=== PATIENT | male | born 1950 | race Caucasian/White ===

== ENCOUNTER → 2017-05-04 | Outpatient (CLI) | payer MEDICARE, BC ==
--- NOTE | 2017-05-04 09:59 | XR ---
EXAMINATION TYPE: XR chest 2V DATE OF EXAM: 05/04/2017 COMPARISON: NONE INDICATION: Z00.00. No other history is provided TECHNIQUE: Frontal and lateral views of the chest are obtained. FINDINGS: The heart size is normal. The pulmonary vasculature is normal. The lungs are clear. IMPRESSION: 1. No acute pulmonary process.
== END ==
LOC: RADXRMAIN 09:18
PROVIDERS: ATTEND Family Medicine
DX: Z00.00 Encounter for general adult medical examination without abnormal findings (principal)
CPT/HCPCS: 71020

== ENCOUNTER → 2017-09-09 | Outpatient (CLI) | payer MEDICARE, BC ==
[2017-09-09 07:18] LABS: Anisocytosis Slight; CH 32.5; CHCM 33.7; HCT 40.8 % (39.0-53.0); HDW 3.15; HGB 13.5 gm/dL (13.0-17.5); MCH 32.1 pg (25.0-35.0); MCV 97.1 fL (80.0-100.0); Macrocytosis Slight; Mean Platelet Volume 7.5; WBC 7.5 k/uL (3.8-10.6)
[2017-09-09 09:57] LABS: Erythrocyte Sedimentation Rate 28 mm/hr (0-15)
--- NOTE | 2017-09-09 12:49 | NM ---
EXAMINATION TYPE: NM bone 3 phase DATE OF EXAM: 09/09/2017 COMPARISON: Previous 3 phase bone scan 03/13/2012, plain film left hip 08/09/2017 HISTORY: Left thigh and hip pain Triple phase bone scintigraphy was performed following the injection of28.2 mCi Tc 99m MDP. Immediat e images and 4 hours post injection images acquired. FINDINGS: Some mild increased uptake is noted about the left hip and acetabular component, femoral prosthesis o n immediate imaging, more significant uptake noted on delayed imaging. Photopenic areas present withi n both hips compatible with prior hip arthroplasties. Mild uptake noted about the right hip similar t o prior exam. IMPRESSION: Findings may be indicative of prosthesis infection, loosening.
== END | disposition home or self-care (01) ==
LOC: RADNMMAIN 06:38
PROVIDERS: ATTEND Orthopaedic Surgery
DX: M25.552 Pain in left hip (principal); Z96.642 Presence of left artificial hip joint; Z88.0 Allergy status to penicillin
CPT/HCPCS: 85652; 85027; 86140; 78315; 36415; A9503

== ENCOUNTER → 2018-10-31 | Outpatient (CLI) | payer MEDICARE, BC ==
--- NOTE | 2018-10-31 12:10 | P.STRESS ---
- Stress Test Note Stress Test Results/Findings: Exam Performed: stress test Exam Date: 10/31/18 Reason for Exam: CP Height: 5 ft 10 in Weight: 124.738 kg Protocol: EXERCISE STRESS TEST Stage: 1 Duration of Exercise: 2:08 Resting Heart Rate: 88 Resting Blood Pressure: 125/85 Maximum Achieved Heart Rate: 136 Maximum Achieved Blood Pressure: 198/63 85% PMHR: 128 100% PMHR: 150 METS: 3.4 Technologist Comment: SHORTNESS OF BREATH DURING TEST. TEST STOPPED DUE TO PATIENT'S DIFFICULTY IN BREATHING Stress Test Results/Findings: This is a 68-year-old gentleman with history of hypertension, diabetes, family history and smoking being evaluated for symptoms of chest pain and shortness of breath. Stress data: Baseline EKG showed sinus rhythm with normal NV interval, QRS duration with mild ST-T abnormalities in inferolateral leads and poor R-wave progression in the anterior leads size to possible previous anteroseptal MS. Blood pressure at rest is 128/85, pulse rate of 88. Patient walked on the Epifanio protocol for 2 minutes and 8 seconds achieving a maximal heart rate 136 with a blood pressure of about 198/63. The test was stopped because of shortness of breath. EKGs taken during exercise and showed a lot of artifacts, but EKGs taken in the recovery showed more pronounced ST-T abnormalities in the inferolateral leads with with T-wave inversions and ST depressions.. Patient did not express any chest pain . Final impression #1. Limited excess capacity #2. The test was stopped because of extreme shortness of breath. #3. The test is considered inconclusive because of baseline EKG changes. Baseline EKG showed ST-T changes in inferolateral leads with pronounced changes during exercise. Ischemia cannot be completely excluded based on this test. May consider nuclear stress test with Lexiscan.
== END ==
LOC: RADNMMAIN 10:36
PROVIDERS: ATTEND Family Medicine
DX: R07.89 Other chest pain (principal)
CPT/HCPCS: 93017

== ENCOUNTER 2018-11-18 08:19 | Day surgery (SDC) | payer BC, MEDICARE ==
[2018-11-12 16:15] VITALS: BMI 39.4
[~2018-11-18 08:19] MED LIST: ALPRAZolam 0.25 MG TAB PO PRN; ALPRAZolam 0.5 MG TAB PO PRN; ASPIRIN 325 MG TAB PO STA; ATORVASTATIN 80 MG TAB PO STA; NITROGLYCERIN SL TABS 0.4 MG TAB SUBLINGUAL PRN; SODIUM CHLORIDE 0.9% 1,000 ML in EMPTY BAG 1 BAG IV ONE
[2018-11-18 09:08] LABS: Glucose,Whole Blood 177 mg/dL (75-99)
[2018-11-18] MEDS ORDERED: fentaNYL (PF) 50 MCG/ML 2 ML AMP ONE ×2 (09:42→10:40)
[2018-11-18] MEDS ORDERED: MIDAZOLAM 2 MG/2 ML VIAL IVP ONE (09:55)
[2018-11-18] MEDS: BENZOCAINE SPRAY 1 CAN MUCOUS MEM ONE ×2 (09:55→09:59)
[2018-11-18] MEDS ORDERED: fentaNYL (PF) 50 MCG/ML 2 ML AMP IVP ONE ×2 (09:59→10:42)
[2018-11-18] MEDS ORDERED: SODIUM CHLORIDE 0.9% 1,000 ML IV ONE (10:05)
[2018-11-18] MEDS ORDERED: LIDOCAINE 1% INJ 10MG/ML (20 ML MDV) ONE (10:24)
[2018-11-18] MEDS ORDERED: ENALAPRILAT 1.25 MG/ML 1 ML VIAL ONE (10:30)
[2018-11-18] MEDS ORDERED: IV FLUID CONTINUATION 1,000 ML IV ONE (10:30)
[2018-11-18] MEDS ORDERED: MIDAZOLAM 2 MG/2 ML VIAL IV ONE (10:32)
[2018-11-18] MEDS ORDERED: ENALAPRILAT 1.25 MG/ML 1 ML VIAL IV ONE (10:33)
[2018-11-18] MEDS ORDERED: LIDOCAINE 1% INJ 10MG/ML (20 ML MDV) SQ ONE (10:35)
[2018-11-18] MEDS ORDERED: IOPAMIDOL-370 125ML BTL INJ ONE (10:57)
[2018-11-18 11:12] VITALS: TEMP 97.9
[2018-11-18] MEDS ORDERED: RX INFO: IV CONTRAST WAS GIVEN 1 EACH MISC MISCELLANE PRN (11:25)
[2018-11-18] MEDS ORDERED: SODIUM CHLORIDE 0.9% 1,000 ML IV SCH (11:30)
--- NOTE | 2018-11-18 11:48 | CC ---
CARDIAC CATHETERIZATION REPORT INDICATION: Aortic stenosis, exertional shortness of breath in a patient with moderate to severe aortic stenosis by echocardiogram. PROCEDURE NOTE: After obtaining informed consent, left heart catheterization and coronary angiogram are performed via the right femoral artery using standard Ernestina catheters. The patient tolerated the procedure well without any obvious immediate complications. A femoral angiogram was performed and Angio-Seal was deployed for hemostasis. Patient tolerated . FINDINGS: 1. HEMODYNAMICS: Central aortic pressure is 130/80 mm. 2. LEFT VENTRICULOGRAM: Left ventriculogram is not performed. 3. ANGIOGRAPHIC DATA: Left main coronary artery appears calcified, but no significant stenosis is noted. There is ventricularization of the pressure wave pattern on engaging the left probably it is just the way the catheter sitting. We went back and took images with a size 3.5 Ernestina catheter and there was ventricularization that left main does not seem to have significant disease, divides into left anterior descending coronary artery and circumflex coronary artery. LAD shows mild disease at the origin of the diagonal branch. Circumflex coronary artery is a nondominant vessel that shows 30% to 40% stenosis. Right coronary artery is a large dominant vessel. In its midportion, there is a 70%- 80% stenosis and the proximal part has a 40% to 50% stenosis. CONCLUSIONS: Calcified coronaries with mild atherosclerotic plaque involving the ostium of left main with significant stenosis involving mid right coronary artery. PLAN: I am going to review the patient has significant aortic stenosis. I am going to have the cardiothoracic surgeon see the patient and see if we should do aortic valve replacement with bypass or just with right coronary artery and bring him back for an aortic valve replacement at a later time. MMODL / IJN: [id number] /
--- NOTE | 2018-11-18 11:48 | ECHOT ---
TRANSESOPHAGEAL ECHOCARDIOGRAM INDICATION: Aortic stenosis. PROCEDURE NOTE: After obtaining informed consent, transesophageal echocardiogram was performed in left lateral position using an Omniplane probe. Local and IV sedation were obtained using 2 mg of Versed and 50 mcg of fentanyl. The patient tolerated the procedure well without any obvious immediate complications. Received moderate conscious sedation. Total sedation time was 10 minutes. FINDINGS: 1. Aortic valve: Aortic valve is a 3-leaflet valve appears heavily calcified shows severe restriction in leaflet mobility. By planimetry, the valve area is 0.9 square centimeters. 2. Left atrium appears mildly enlarged. 3. Right atrium and right ventricle appear prominent. 4. Mitral valve is anatomically normal. There is trace mitral regurgitation noted. 5. Tricuspid valve shows mild tricuspid regurgitation. 6. Left ventricle has normal size, shows concentric left ventricular hypertrophy with normal LV function. 7. Interatrial septum: There is no evidence of left to right shunt by color-flow Doppler or [id number] shunt by agitated saline contrast study. 8. Aorta: Aortic root measures within normal limits. Aorta shows [id number] atherosclerotic changes. CONCLUSIONS: Severe aortic stenosis involving a 3-leaflet aortic valve that is heavily calcified and shows severe restriction in leaflet mobility. By planimetry, the valve area comes to somewhere between 0.9 and 1.1 square centimeters. MMODL / IJN: [id number] /
[2018-11-18 11:54] VITALS: RESP 16
[2018-11-18] MEDS ORDERED: MUPIROCIN 2% OINT 22 GM TUBE TOPICAL SCH (14:24)
--- NOTE | 2018-11-18 14:24 | P.GSCN ---
History of Present Illness Consult date: 11/18/18 Reason for Consult: Severe aortic valve stenosis, coronary artery disease, surgical recommendations. Requesting physician: Demian Brennan History of present illness: This is a 68-year-old gentleman who follows on an outpatient basis with Dr. Jonathan Graham. He has a previous medical history of aortic stenosis, hypertension, hyperlipidemia, family history of coronary artery disease, diabetes mellitus with neuropathy, previous tobacco dependence, rare EtOH use, shingles, basal cell skin carcinoma diagnosed in 2015 and 2016, osteoarthritis, both right and left hip replacements with postoperative infections and subsequent IV antibiotics per Dr. Ricci. This gentleman has been experiencing exertional dyspnea over the previous 4-6 months. He does admit to occasional back pain, but denies any syncopal episodes, chest pain, nausea, diaphoresis, or any other symptoms. Due to his increasing symptoms he was brought to the [facility] by Dr. Brennan for transesophageal echocardiogram and left heart catheterization. The CARMELA demonstrated a 3 leaflet aortic valve with heavy calcification and severe restriction, valve area measuring 0.9 cm by planimetry consistent with severe aortic stenosis, trace mitral regurgitation, mild tricuspid regurgitation, and concentric left ventricular hypertrophy with normal left ventricular function. Heart catheterization demonstrated a calcified left main coronary artery without significant stenosis, right coronary artery with proximal stenosis 40-50% and mid stenosis 70-80%, and 30-40 % stenosis in the circumflex coronary artery. Dr. Irby from cardiothoracic surgery was consulted for surgical recommendations. Review of Systems Review of systems was completed and was negative except as noted. - Cardiovascular Reports dyspnea on exertion - Respiratory Reports dyspnea Past Medical History Past Medical History: Coronary Artery Disease (CAD), Chest Pain / Angina, Diabetes Mellitus, Hyperlipidemia, Hypertension, Osteoarthritis (OA), Pneumonia Additional Past Medical History / Comment(s): SOB,pain mid back,MURMUR, IDDM, HX OF HERPES. DIABETIC NEUROPATHY. 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 07-25-15 .LT HIP REPLACEMENT. ADMITTED WITH INC CELLULITIS LT HIP Past Anesthesia/Blood Transfusion Reactions: No Reported Reaction Additional Past Anesthesia/Blood Transfusion Reaction / Comm: Pt has received blood transfusion without reaction. Past Psychological History: Depression Smoking Status: Former smoker Past Alcohol Use History: Rare Past Drug Use History: None Reported - Past Family History Father Family Medical History: Diabetes Mellitus, Hypertension, Memory Impairment Mother Family Medical History: CVA/TIA Brother(s) Family Medical History: Diabetes Mellitus, Hyperlipidemia, Hypertension Son(s) Family Medical History: No Reported History Medications and Allergies Home Medications Medication Instructions Recorded Confirmed Type valACYclovir HCL [Valtrex] 500 mg PO DAILY 07/18/15 11/12/18 History Aspirin EC [Ecotrin Low Dose] 81 mg PO HS 10/02/17 11/12/18 History Citalopram Hydrobromide [CeleXA] 20 mg PO DAILY 10/02/17 11/12/18 History hydrALAZINE HCL [Apresoline] 25 mg PO TID 10/02/17 11/12/18 History Cholecalciferol [Vitamin D3] 1,000 unit PO DAILY 11/12/18 11/12/18 History Doxycycline [Vibramycin] 100 mg PO BID 11/12/18 11/12/18 History Furosemide [Lasix] 40 mg PO DAILY 11/12/18 11/12/18 History Insulin Aspart [NovoLOG] 0 units SQ TID-W/MEALS PRN 11/12/18 11/12/18 History Insulin Aspart [NovoLOG] 27 units SQ TID-W/MEALS 11/12/18 11/12/18 History Insulin Glargine [Lantus] 80 unit SQ HS 11/12/18 11/12/18 History Meloxicam 15 mg PO DAILY 11/12/18 11/12/18 History Metoprolol Tartrate [Lopressor] 25 mg PO BID 11/12/18 11/12/18 History Omeprazole [PriLOSEC] 20 mg PO AC-BRKFST 11/12/18 11/12/18 History Pregabalin [Lyrica] 100 mg PO BID 11/12/18 11/12/18 History metFORMIN HCL [Glucophage] 500 mg PO BID 11/12/18 11/12/18 History traMADol HCL [Ultram] 50 mg PO TID PRN 11/12/18 11/12/18 History Allergies Allergy/AdvReac Type Severity Reaction Status Date / Time Penicillins Allergy Rash/Hives Verified 11/12/18 15:57 Surgical - Exam Vital Signs Temp Pulse Resp BP Pulse Ox 97.9 F 80 20 165/70 98 11/18/18 11:10 11/18/18 11:10 11/18/18 11:10 11/18/18 11:10 11/18/18 11:10 - General well developed, well nourished, no distress, no pain, obese - Eyes PERRL, normal ocular movement - ENT no hearing loss - Neck no masses, no bruits, trachea midline - Respiratory Lungs sounds clear bilaterally. Respirations even, nonlabored. Currently on room air oxygen saturation 94%. No chest wall deformities. - Cardiovascular S1, S2 present. Positive systolic murmur. Regular rate and rhythm, sinus rhythm on telemetry. Palpable peripheral pulses bilaterally. No edema present. No calf pain or tenderness noted. No varicosities noted. - Abdomen Abdomen: soft, non tender, bowel sounds - Genitourinary Deferred - Rectum Deferred - Integumentary no rash, no growths, no abnormal pigmentation - Neurologic normal coordination, normal sensation - Musculoskeletal normal posture - Psychiatric oriented to time, oriented to person, oriented to place, speech is normal, memory intact Results - Labs Abnormal Lab Results - Last 24 Hours (Table) 11/18/18 Range/Units 08:51 POC Glucose (mg/dL) 177 H (75-99) mg/dL - Imaging Additional studies: Heart catheterization and transesophageal echo films reviewed Assessment and Plan (1) Hypertension Current Visit: Yes Status: Chronic Code(s): I10 - ESSENTIAL (PRIMARY) HYPERTENSION SNOMED Code(s): 80556937 (2) Hyperlipidemia Current Visit: Yes Status: Chronic Code(s): E78.5 - HYPERLIPIDEMIA, UNSPECIFIED SNOMED Code(s): 19123067 (3) Coronary artery disease Current Visit: Yes Status: Chronic Code(s): I25.10 - ATHSCL HEART DISEASE OF [place] CORONARY ARTERY W/O ANG PCTRS SNOMED Code(s): 09419504 (4) Aortic stenosis Current Visit: Yes Status: Chronic Code(s): I35.0 - NONRHEUMATIC AORTIC ( VALVE) STENOSIS SNOMED Code(s): 66861282 (5) Osteoarthritis Current Visit: Yes Status: Chronic Code(s): M19.90 - UNSPECIFIED OSTEOARTHRITIS, UNSPECIFIED SITE SNOMED Code(s): 839718397 (6) Tobacco dependence in remission Current Visit: No Status: Resolved Code(s): F17.201 - NICOTINE DEPENDENCE, UNSPECIFIED, IN REMISSION SNOMED Code(s): 515465376 (7) Obesity (BMI 30-39.9) Current Visit: Yes Status: Chronic Code(s): E66.9 - OBESITY, UNSPECIFIED SNOMED Code(s): 799176096 (8) Diabetes mellitus Current Visit: Yes Status: Chronic Code(s): E11.9 - TYPE 2 DIABETES MELLITUS WITHOUT COMPLICATIONS SNOMED Code(s): 61398827 Plan: The patient was seen and examined in the extended stay unit with Dr. Irby. Chart/diagnostics were reviewed. Case was discussed between Dr. Irby and Dr. Brennan. We offered the patient bioprosthetic aortic valve replacement along with coronary artery bypass surgery. The usual perioperative course was discussed in detail with the patient and his , risks and benefits were reviewed, all questions were answered, and the patient agreed to surgery. Preoperative testing was ordered. Patient will need dental clearance prior to surgery and he does state he sees a dentist every 6 months. We will discuss antibiotic usage and infection risk with Dr. Ricci as patient and indicate he has a history of multiple infections with his prosthetic hip replacements and was told he will be on lifelong antibiotics. At this time we scheduled surgery for December 01 pending results of preoperative testing and dental clearance, this was agreeable to the patient and his . We recommend the patient be continued on aspirin, statin, beta paul therapy. Medical management per primary care service and cardiology. More recommendations to follow. Thank you Dr. Brennan for this consult. We look forward to working with you in the care of your patient. Time with Patient: Greater than 30
[2018-11-18 14:29] LABS: Basophils % (A) 0 %; Eosinophils # (A) 0.2 k/uL (0-0.7); Eosinophils % (A) 3 %; HCT 39.2 % (39.0-53.0); HGB 13.5 gm/dL (13.0-17.5); Lymphocytes % (A) 30 %; MCH 33.6 pg (25.0-35.0); MCHC 34.6 g/dL (31.0-37.0); MCV 97.1 fL (80.0-100.0); Mean Platelet Volume 7.4; Monocytes # (A) 0.4 k/uL (0-1.0); Monocytes % (A) 6 %; Neutrophils # (A) 3.9 k/uL (1.3-7.7); Neutrophils % (A) 59 %; Platelet Count 145 k/uL (150-450); RBC 4.03 m/uL (4.30-5.90); RDW 14.9 % (11.5-15.5); WBC 6.6 k/uL (3.8-10.6)
[2018-11-18 14:35] LABS: Partial Thromboplastin Time 24.3 sec (22.0-30.0); Prothrombin Time 10.3 sec (9.0-12.0)
[2018-11-18 14:50] LABS: Appearance,Urine Clear (Clear); Bilirubin,Urine Negative (Negative); Blood,Urine Negative (Negative); Color,Urine Yellow; Glucose,Urine (UA) Negative (Negative); Ketones,Urine Negative (Negative); Leukocyte Esterase,Urine Negative (Negative); Nitrite,Urine Negative (Negative); PH, Urine 5.5 (5.0-8.0); Protein,Urine Trace (Negative); Urobilinogen,Urine <2.0 mg/dL (<2.0)
[2018-11-18 14:50] LABS: Albumin 3.8 g/dL (3.5-5.0); Calcium 8.9 mg/dL (8.4-10.2); Potassium 4.8 mmol/L (3.5-5.1); Total Bilirubin 1.2 mg/dL (0.2-1.3); Total Protein 6.2 g/dL (6.3-8.2)
[2018-11-18 14:59] LABS: Specific Gravity,Urine >1.050 (1.001-1.035)
--- NOTE | 2018-11-18 16:38 | XR ---
EXAMINATION: XR chest 2V DATE AND TIME: 11/18/2018 4:28 PM CLINICAL INDICATION: [facility]; PreOp Cardiac Surgery TECHNIQUE: Departmental protocol COMPARISON: 05/04/2017 FINDINGS: EKG leads noted. The overlying soft tissues are prominent. Lungs are clear. The pleural spaces are negative. The cardiac silhouette is not enlarged. The left cardiac apex can be visualized; prominent mediastina l adipose is noted in epicardial position. The remainder of the mediastinal silhouette is unremarkabl e. The skeletal structures and soft tissues are negative for acute findings. IMPRESSION: NO ACUTE PROCESS.
[2018-11-18 16:42] VITALS: PULSE 68
[2018-11-18 16:44] VITALS: BP 159/68
[2018-11-18 19:54] LABS: Hepatitis A Antibody IgM Non-Reactive (Non-Reactive); Hepatitis B Core IgM Non-Reactive (Non-Reactive)
[2018-11-18 22:23] LABS: Hemoglobin A1C 6.3 % (4.0-6.0)
--- NOTE | 2018-11-19 09:32 | P.VSCSTY ---
Greater Saphenous Vein Mapping This is bilateral lower extremity greater saphenous vein mapping. Date of service 11/18/2018 Reason for study: Preop CABG. Vein quality and ultrasound appearance no sign of wall changes or intraluminal thrombus.. Vein size groin right 4.5 x 4.9 groin left 11.1 x 9.7 High thigh right 2.5 x 2.9 high thigh left 4.0 x 4.4 Mid thigh right to 2.6 x 4.0 mid thigh left 3.6 x 5.1 Above-knee right 2.5 x 2.9 above- knee left 3.3 x 4.4 Below knee right 3.5 x 4.5 below-knee left 2.7 x 3.2 Mid calf right 2.5 x 2.6 mid calf left 2.5 x 3.4 Ankle right to 2.5 x 3.2 ankle left 2.2 x 2.7 Impression usable bilateral greater saphenous veins..
== END 2018-11-18 17:06 | disposition home or self-care (01) ==
LOC: CATHCVL 08:19
PROVIDERS: ATTEND Internal Medicine Cardiovascular Disease
DX: I08.3 Combined rheumatic disorders of mitral, aortic and tricuspid valves (principal); I25.10 Atherosclerotic heart disease of native coronary artery without angina pectoris; I25.84 Coronary atherosclerosis due to calcified coronary lesion; I10 Essential (primary) hypertension; E78.5 Hyperlipidemia, unspecified; E11.40 Type 2 diabetes mellitus with diabetic neuropathy, unspecified; R01.1 Cardiac murmur, unspecified; Z79.4 Long term (current) use of insulin; Z82.49 Family history of ischemic heart disease and other diseases of the circulatory system; Z87.891 Personal history of nicotine dependence; Z79.1 Long term (current) use of non-steroidal anti-inflammatories (NSAID); Z79.82 Long term (current) use of aspirin; Z79.899 Other long term (current) drug therapy; Z88.0 Allergy status to penicillin; Z85.828 Personal history of other malignant neoplasm of skin; M19.90 Unspecified osteoarthritis, unspecified site
CPT/HCPCS: 94150; 93312; 93320; 93325; 93454; 86900; 86901; 80061; 80053; 80074; 84443; 83735; 85025; 85610; 85730; 86850; 81003; 87070; 87086; 83036; 71046; 93970; C1760; C1894; C1769; J2250; J2001; J3010; Q9967

== ENCOUNTER 2018-12-01 08:00 | Inpatient (IN) | payer MEDICARE ==
[2018-12-02] MEDS ORDERED: CALCIUM CHLORIDE 100 MG/ML 10 ML SYRINGE IV ONE (05:00)
[2018-12-02] MEDS ORDERED: CLEVIDIPINE BUTYRATE 25 MG in EMPTY BAG 1 BAG IV ONE (05:00)
[2018-12-02] MEDS ORDERED: ALBUMIN HUMAN 25% 50 ML IV ONE (05:00)
[2018-12-02] MEDS ORDERED: ceFAZolin 3 GM in SODIUM CHLORIDE 0.9% 30 ML IVPB ONE (05:00)
[2018-12-02] MEDS ORDERED: INSULIN REGULAR 100 UNIT in SODIUM CHLORIDE 0.9% 100 ML IV ONE (05:00)
[2018-12-02] MEDS ORDERED: PROTAMINE SULFATE 10 MG/ML 25 ML VIAL IV ONE ×2 (05:00→07:51)
[2018-12-02] MEDS ORDERED: CHLORHEXIDINE GLUCONATE 15 ML CUP MUCOUS MEM ONE (05:00)
[2018-12-02] MEDS ORDERED: PROTAMINE SULFATE 250 MG in EMPTY BAG 1 BAG IV ONE (05:00)
[2018-12-02] MEDS ORDERED: PROPOFOL 1,000 MG/100 ML VIAL IV ONE (05:00)
[2018-12-02] MEDS ORDERED: NITROGLYCERIN-D5W PMX 50 MG in DEXTROSE/WATER 1 250ML.BAG IV ONE (05:00)
[2018-12-02] MEDS ORDERED: PHENYLEPHRINE 40 MG in SODIUM CHLORIDE 0.9% 250 ML IV ONE (05:00)
[2018-12-02] MEDS ORDERED: ceFAZolin 1,000 MG in SODIUM CHLORIDE 0.9% IRRIGATIO 1,000 ML IRRIGATION ONE (05:00)
[2018-12-02] MEDS ORDERED: PAPAVERINE 360 MG in SODIUM CHLORIDE 0.9% 90 ML IV ONE (05:00)
[2018-12-02] MEDS ORDERED: ATORVASTATIN 10 MG TAB PO ONE (05:00)
[2018-12-02] MEDS ORDERED: DEXTROSE 5% IN WATER 1,000 ML with POTASSIUM CHLORIDE 25 MEQ, SODIUM CHLORIDE 2.5MEQ/ML... IRRIGATION ONE ×6 (05:00)
[2018-12-02] MEDS ORDERED: NITROGLYCERIN-D5W PMX 25 MG/250 ML BTL IV ONE (05:00)
[2018-12-02] MEDS ORDERED: SODIUM BICARB 8.4% 50 ML SYR (1 MEQ/ML) IV ONE (05:00)
[2018-12-02] MEDS ORDERED: ASPIRIN 325 MG TAB PO ONE (05:00)
[2018-12-02] MEDS ORDERED: METOPROLOL TARTRATE 12.5 MG TAB PO ONE (05:00)
[2018-12-02] MEDS ORDERED: HEPARIN SODIUM,PORCINE 5,000 UNIT in SODIUM CHLORIDE 0.9% 500 ML 500 ML IV ONE (05:00)
[2018-12-02] MEDS ORDERED: NOREPINEPHRINE 4 MG in SODIUM CHLORIDE 0.9% 250 ML IV ONE (05:00)
[2018-12-02] MEDS ORDERED: MANNITOL 25% 12.5 GM/50 ML VIAL IV ONE (05:00)
[2018-12-02] MEDS ORDERED: DEXTROSE 5% IN WATER 1,000 ML with POTASSIUM CHLORIDE 110 MEQ, MAGNESIUM SULFATE 16 MEQ... IV ONE ×5 (05:00)
[2018-12-02] MEDS ORDERED: ALBUMIN HUMAN 5% 500 ML IVPB ONE (05:00)
[2018-12-02] MEDS ORDERED: TRANEXAMIC ACID 2,000 MG in SODIUM CHLORIDE 0.9% 180 ML IV ONE ×4 (05:00)
[2018-12-02] MEDS ORDERED: HEPARIN SODIUM 1,000 UN/ML (10ML VL) IV ONE (05:00)
[2018-12-02] MEDS ORDERED: PHENYLEPHRINE-0.9% NACL SYG 1 MG/10 ML SYRINGE IV ONE ×4 (05:00)
[2018-12-02] MEDS ORDERED: MAGNESIUM SULFATE MG 500 MG/ML IV ONE (05:00)
[2018-12-02] MEDS ORDERED: ceFAZolin 2,000 MG in SODIUM CHLORIDE 0.9% 30 ML IVPB ONE (05:00)
[2018-12-02 06:06] LABS: Glucose,Whole Blood 296 mg/dL (75-99)
[2018-12-02] MEDS ORDERED: INSULIN ASPART 100 UNIT/ML 1 ML 10 ML VIAL SQ ONE (06:08)
[2018-12-02] MEDS ORDERED: TRANEXAMIC ACID 1,000 MG/10 ML VIAL ONE (07:51)
[2018-12-02] MEDS ORDERED: LACTATED RINGERS 1,000 ML BAG IV ONE (07:51)
[2018-12-02] MEDS ORDERED: MIDAZOLAM 2 MG/2 ML VIAL ONE (07:51)
[2018-12-02] MEDS ORDERED: fentaNYL (PF) 50 MCG/ML 2 ML AMP ONE (07:51)
[2018-12-02] MEDS ORDERED: PROPOFOL 10 MG/ML 20 ML VIAL IV ONE (07:51)
[2018-12-02] MEDS ORDERED: ELECTROLYTE-R (PH 7.4) 1,000 ML IV.SOLN IV ONE (07:51)
[2018-12-02] MEDS ORDERED: fentaNYL (PF) 50 MCG/ML 50 ML VIAL ONE (07:51)
[2018-12-02] MEDS ORDERED: HEPARIN SODIUM,PORCINE 10,000 UNIT/ML 1 ML VIAL ONE (07:51)
[2018-12-02] MEDS ORDERED: LIDOCAINE 1% INJ 10MG/ML (20 ML MDV) ONE (07:51)
[2018-12-02] MEDS ORDERED: SODIUM CHLORIDE 0.9% 250 ML BAG ONE (07:51)
[2018-12-02] MEDS ORDERED: MAGNESIUM SULFATE 4 MEQ/ML 10ML VIAL ONE (07:51)
[2018-12-02] MEDS ORDERED: VECURONIUM 10 MG VIAL IV ONE (07:51)
[2018-12-02 08:37] LABS: ABG Base Excess 1.7 mmol/L; ABG HCO3 28 mmol/L (21-25); ABG PCO2 48 mmHg (35-45); ABG PH 7.37 (7.35-7.45); ABG Potassium Whole Blood 4.5 mmol/L (3.4-4.5); ABG Sodium Whole Blood 145 mmol/L (135-146); ABG TCO2 29 mmol/L (19-24)
[2018-12-02 10:12] LABS: ABG Base Excess 1.2 mmol/L; ABG HCO3 27 mmol/L (21-25); ABG PCO2 48 mmHg (35-45); ABG PH 7.36 (7.35-7.45); ABG PO2 220 mmHg (83-108); ABG Potassium Whole Blood 4.7 mmol/L (3.4-4.5); ABG Sodium Whole Blood 141 mmol/L (135-146); ABG TCO2 29 mmol/L (19-24)
[2018-12-02 10:41] LABS: ABG HCO3 27 mmol/L (21-25); ABG PCO2 45 mmHg (35-45); ABG PH 7.38 (7.35-7.45); ABG PO2 310 mmHg (83-108); ABG Potassium Whole Blood 4.4 mmol/L (3.4-4.5); ABG Sodium Whole Blood 142 mmol/L (135-146); ABG TCO2 28 mmol/L (19-24)
[2018-12-02 11:06] LABS: ABG Base Excess 0.8 mmol/L; ABG HCO3 26 mmol/L (21-25); ABG PCO2 44 mmHg (35-45); ABG PH 7.38 (7.35-7.45); ABG PO2 306 mmHg (83-108); ABG Potassium Whole Blood 4.3 mmol/L (3.4-4.5); ABG Sodium Whole Blood 143 mmol/L (135-146); ABG TCO2 27 mmol/L (19-24)
[2018-12-02 11:38] LABS: ABG Base Excess 0.9 mmol/L; ABG HCO3 27 mmol/L (21-25); ABG PCO2 46 mmHg (35-45); ABG PH 7.37 (7.35-7.45); ABG PO2 300 mmHg (83-108); ABG Potassium Whole Blood 4.6 mmol/L (3.4-4.5); ABG Sodium Whole Blood 143 mmol/L (135-146); ABG TCO2 28 mmol/L (19-24)
[2018-12-02 12:22] LABS: ABG Base Excess 0.7 mmol/L; ABG HCO3 27 mmol/L (21-25); ABG PCO2 48 mmHg (35-45); ABG PH 7.35 (7.35-7.45); ABG PO2 334 mmHg (83-108); ABG Potassium Whole Blood 4.8 mmol/L (3.4-4.5); ABG Sodium Whole Blood 142 mmol/L (135-146); ABG TCO2 28 mmol/L (19-24)
[2018-12-02 12:53] LABS: ABG Base Excess -0.3 mmol/L; ABG HCO3 26 mmol/L (21-25); ABG PCO2 46 mmHg (35-45); ABG PH 7.35 (7.35-7.45); ABG PO2 372 mmHg (83-108); ABG Potassium Whole Blood 4.7 mmol/L (3.4-4.5); ABG Sodium Whole Blood 142 mmol/L (135-146); ABG TCO2 27 mmol/L (19-24)
[2018-12-02 13:01] LABS: ABG Base Excess 0.5 mmol/L; ABG HCO3 28 mmol/L (21-25); ABG Oxygen Saturation 69.6 % (94-97); ABG PCO2 58 mmHg (35-45); ABG PH 7.29 (7.35-7.45); ABG Potassium Whole Blood 4.8 mmol/L (3.4-4.5); ABG Sodium Whole Blood 142 mmol/L (135-146); ABG TCO2 29 mmol/L (19-24)
[2018-12-02 13:07] LABS: ABG HCO3 26 mmol/L (21-25); ABG PCO2 46 mmHg (35-45); ABG PH 7.36 (7.35-7.45); ABG PO2 358 mmHg (83-108); ABG Potassium Whole Blood 4.7 mmol/L (3.4-4.5); ABG Sodium Whole Blood 141 mmol/L (135-146); ABG TCO2 27 mmol/L (19-24)
[2018-12-02 14:12] LABS: ABG PO2 >420 mmHg (83-108)
[2018-12-02 14:28] LABS: ABG Base Excess 1.4 mmol/L; ABG HCO3 27 mmol/L (21-25); ABG PCO2 47 mmHg (35-45); ABG PH 7.37 (7.35-7.45); ABG PO2 183 mmHg (83-108); ABG Potassium Whole Blood 4.5 mmol/L (3.4-4.5); ABG Sodium Whole Blood 146 mmol/L (135-146); ABG TCO2 29 mmol/L (19-24)
[2018-12-02 14:45] LABS: ABG Base Excess 1.3 mmol/L; ABG HCO3 27 mmol/L (21-25); ABG PCO2 46 mmHg (35-45); ABG PH 7.38 (7.35-7.45); ABG PO2 187 mmHg (83-108); ABG Potassium Whole Blood 4.5 mmol/L (3.4-4.5); ABG Sodium Whole Blood 146 mmol/L (135-146); ABG TCO2 28 mmol/L (19-24)
[2018-12-02 14:53] LABS: ABG PO2 40 mmHg (83-108)
[2018-12-02] MEDS ORDERED: Magnesium Replacement Protocol 1 EACH MISC MISCELLANE PRN (14:53)
[2018-12-02] MEDS ORDERED: BENZOCAINE/MENTHOL LOZENG 1 EACH LOZENGE MUCOUS MEM PRN (14:53)
[2018-12-02] MEDS ORDERED: NITROGLYCERIN-D5W PMX 50 MG in DEXTROSE/WATER 1 250ML.BAG IV SCH (14:53)
[2018-12-02] MEDS ORDERED: AMIODARONE 450 MG in DEXTROSE 5% IN WATER 250 ML IV PRN ×2 (14:53)
[2018-12-02] MEDS ORDERED: CALCIUM CHLORIDE 1,000 MG in SODIUM CHLORIDE 0.9% 100 ML IV PRN (14:53)
[2018-12-02] MEDS ORDERED: Potassium Replacement Protocol 1 EACH MISC MISCELLANE PRN (14:53)
[2018-12-02] MEDS ORDERED: METOCLOPRAMIDE 5 MG/ML 2 ML VIAL IVP PRN (14:53)
[2018-12-02] MEDS ORDERED: ONDANSETRON 4 MG/2 ML VIAL IVP PRN (14:53)
[2018-12-02] MEDS ORDERED: DEXTROSE 5% IN WATER 100 ML with AMIODARONE 150 MG IV PRN (14:53)
[2018-12-02] MEDS ORDERED: Phosphorus Replacement Protoco 1 EACH MISC MISCELLANE PRN (14:53)
[2018-12-02] MEDS ORDERED: PROPOFOL 1,000 MG in EMPTY BAG 1 BAG IV SCH (14:53)
[2018-12-02] MEDS ORDERED: IPRATROPIUM-ALBUTEROL 3 ML NEB INHALATION PRN (14:53)
[2018-12-02 15:16] LABS: Glucose,Whole Blood 139 mg/dL (75-99)
[2018-12-02 15:56] LABS: Glucose,Whole Blood 131 mg/dL (75-99)
[2018-12-02] MEDS ORDERED: hydrALAZINE HCL 20 MG/ML 1 ML VIAL IVP PRN (15:57)
[2018-12-02 16:00] LABS: ABG Base Excess -0.1 mmol/L; ABG HCO3 26 mmol/L (21-25); ABG PCO2 45 mmHg (35-45); ABG PH 7.36 (7.35-7.45); ABG PO2 >420 mmHg (83-108); ABG Potassium Whole Blood 4.4 mmol/L (3.4-4.5); ABG Sodium Whole Blood 142 mmol/L (135-146); ABG TCO2 27 mmol/L (19-24)
[2018-12-02] MEDS ORDERED: ceFAZolin 3 GM in SODIUM CHLORIDE 0.9% 100 ML IVPB SCH (16:00)
--- NOTE | 2018-12-02 16:08 | XR ---
EXAMINATION TYPE: XR chest 1V portable DATE OF EXAM: 12/02/2018 HISTORY: Post Op CABG COMPARISON: 11/18/2018 TECHNIQUE: Single view of the chest is submitted. FINDINGS: Endotracheal tube, NG tube, SG catheter, mediastianal drains and chest tubes are appropriately placed . Post operative changes of CABG. No sizeable pneumothorax. Scattered Pleural-parenchymal opacities may reflect atelectasis. The heart mildly enlarged. IMPRESSION: 1. Post operative changes of CABG.
[2018-12-02 16:10] LABS: ABG Base Excess -4.4 mmol/L; ABG HCO3 24 mmol/L (21-25); ABG Oxygen Saturation 99.4 % (94-97); ABG PCO2 70 mmHg (35-45); ABG PO2 269 mmHg (83-108); ABG TCO2 27 mmol/L (19-24)
[2018-12-02 16:11] LABS: ABG PH 7.15 (7.35-7.45)
--- NOTE | 2018-12-02 16:15 | P.CNPUL ---
History of Present Illness Consult date: 12/02/18 Requesting physician: Alex Irby Reason for consult: other Chief complaint: Severe aortic valve stenosis, coronary artery disease History of present illness: This is 68-year-old white male patient of Dr. Jonathan Morataya, past medical history of aortic stenosis, hypertension, hyperlipidemia, family history of coronary artery disease, diabetes mellitus with neuropathy, previous tobacco dependence, occasional EtOH use, basal cell skin carcinoma, osteoarthritis, status post right and left hip replacement, with postoperative infections wiring IV antibiotic infusions per Dr. Ricci. Patient been experiencing exertional dyspnea over the previous 4-6 months, and any syncopal episodes, denied any chest pain. Ration underwent CARMELA and left heart catheterization by Dr. Messina, and the CARMELA showed a 3 leaflet aortic valve with heavy calcification and severe restriction, history of aortic stenosis, trace mitral regurg, mild tricuspid regurg, concentric left ventricular hypertrophy with preserved left ventricular function. The catheterization showed a calcified left main coronary artery without significant stenosis, right coronary artery with proximal stenosis of 40-50% and mid stenosis 70-80% and 30-40% stenosis in the circumflex coronary artery. Preop PFT showed FEV1 of 1.83 L or 56% of predicted , with a forced vital capacity of 2.86 L or 64% of predicted, consistent with moderately severe restriction. 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 Today on 12/02/2018 patient seen in the intensive care unit, in the postoperative period, status post 1 vessel coronary artery bypass, SVG to the RCA, and aortic valve replacement using a bioprosthetic valve. Patient is that it, intubated on mechanical ventilator, current vent settings are SIMV mode with a rate of 12, tidal volume of 580, FiO2 100% and PEEP of 10. Patient was placed on assist-control mode with the same rate and tidal volume and FiO2. Patient is DDD paced, rate of 80 BPM. Current IV drips include lactated Ringer's at a rate of 50 ML per hour, Diprivan at 25 mics per kilo per minute, insulin is a 5 units per hour, nitroglycerin is at 5 mics per kilo per minute. Midsternal incision is clean dry and intact, 2 mediastinal chest tubes connected to Pleur-evac, with 60 mL of serosanguineous output, right pleural chest tube with minimal sanguis output in the Pleur-evac. Postop chest x-ray has been reviewed with Dr. Granda, shows left basal atelectasis, ET tube, NG tube PA catheter are in good locations. Postoperative blood work is pending. Review of Systems All systems: negative Constitutional: Denies chills, Denies fever Eyes: denies blurred vision, denies pain Ears, nose, mouth and throat: Denies headache, Denies sore throat Cardiovascular: Reports decreased exercise tolerance, Reports dyspnea on exertion, Denies chest pain, Denies shortness of breath Respiratory: Reports dyspnea, Denies cough Gastrointestinal: Denies abdominal pain, Denies diarrhea, Denies nausea, Denies vomiting Musculoskeletal: Denies myalgias Integumentary: Denies pruritus, Denies rash Neurological: Denies numbness, Denies weakness Psychiatric: Denies anxiety, Denies depression Endocrine: Denies fatigue, Denies weight change Past Medical History Past Medical History: Coronary Artery Disease (CAD), Chest Pain / Angina, Diabetes Mellitus, Hyperlipidemia, Hypertension, Osteoarthritis (OA), Pneumonia Additional Past Medical History / Comment(s): SOB, pain mid back, MURMUR, HX OF HERPES, on preventitive valtrex, DIABETIC NEUROPATHY. 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 07-25-15 .LT HIP REPLACEMENT. ADMITTED WITH INC CELLULITIS LT HIP Past Anesthesia/Blood Transfusion Reactions: No Reported Reaction Additional Past Anesthesia/Blood Transfusion Reaction / Comment(s): Pt has received blood transfusion without reaction. Smoking Status: Former smoker - Past Family History Father Family Medical History: Diabetes Mellitus, Hypertension, Memory Impairment Mother Family Medical History: CVA/TIA Brother(s) Family Medical History: Diabetes Mellitus, Hyperlipidemia, Hypertension Son(s) Family Medical History: No Reported History Medications and Allergies Home Medications Medication Instructions Recorded Confirmed Type valACYclovir HCL [Valtrex] 500 mg PO DAILY 07/18/15 12/02/18 History Aspirin EC [Ecotrin Low Dose] 81 mg PO HS 10/02/17 12/02/18 History Citalopram Hydrobromide [CeleXA] 20 mg PO DAILY 10/02/17 12/02/18 History hydrALAZINE HCL [Apresoline] 25 mg PO TID 10/02/17 12/02/18 History Cholecalciferol [Vitamin D3] 1,000 unit PO DAILY 11/12/18 12/02/18 History Doxycycline [Vibramycin] 100 mg PO BID 11/12/18 12/02/18 History Furosemide [Lasix] 40 mg PO DAILY 11/12/18 12/02/18 History Insulin Aspart [NovoLOG] 0 units SQ TID-W/MEALS PRN 11/12/18 12/02/18 History Insulin Aspart [NovoLOG] 27 units SQ TID-W/MEALS 11/12/18 12/02/18 History Insulin Glargine [Lantus] 80 unit SQ HS 11/12/18 12/02/18 History Meloxicam 15 mg PO DAILY 11/12/18 12/02/18 History Metoprolol Tartrate [Lopressor] 25 mg PO BID 11/12/18 12/02/18 History Omeprazole [PriLOSEC] 20 mg PO AC-BRKFST 11/12/18 12/02/18 History Pregabalin [Lyrica] 100 mg PO BID 11/12/18 12/02/18 History metFORMIN HCL [Glucophage] 500 mg PO BID 11/12/18 12/02/18 History traMADol HCL [Ultram] 50 mg PO TID PRN 11/12/18 12/02/18 History Allergies Allergy/AdvReac Type Severity Reaction Status Date / Time Penicillins Allergy Rash/Hives Verified 12/02/18 15:12 Physical Exam Vitals: Vital Signs Temp Pulse Resp BP BP Pulse Ox 12/02/18 05:59 97.3 F L 70 16 167/70 135/88 98 Intake and Output 12/02/18 12/02/18 12/02/18 06:59 14:59 22:59 Intake Total 31 Output Total 2600 Balance -2569 Intake: IV 31 Output: Urine 600 Estimated Blood Loss 1999 Other: Weight 127.119 kg GENERAL EXAM: 68-year-old obese white male patient, sedated, intubated HEAD: Normocephalic/atraumatic. EYES: Normal reaction of pupils, equal size. Conjunctiva pink, sclera white. NOSE: Clear with pink turbinates. THROAT: No erythema or exudates. NECK: No masses, no JVD, no thyroid enlargement, no adenopathy. CHEST: No chest wall deformity. Symmetrical expansion. Midsternal incision is clean dry and intact, 2 mediastinal chest tubes, right pleural chest tube in place, with small amount of sanguinous output in the Pleur-evacs, no air leak, epicardial wires connected to external pacemaker which is pacing at the rate of 80 at the DDD mode LUNGS: Equal air entry with diminished breath sounds at the bases CVS: Regular rate and rhythm, normal S1 and S2, no gallops, no murmurs, no rubs ABDOMEN: Soft, nontender. No hepatosplenomegaly, normal bowel sounds, no guarding or rigidity. EXTREMITIES: No clubbing, no edema, no cyanosis, 2+ pulses and upper and lower extremities. Right lower extremity site is wrapped with Dov wraps, SCDs on bilateral lower extremities MUSCULOSKELETAL: Muscle strength and tone normal. SPINE: No scoliosis or deformity SKIN: No rashes CENTRAL NERVOUS SYSTEM: No focal deficits, tone is normal in all 4 extremities. Results - Laboratory Findings ABG ABG pH 7.36 (7.35-7.45) 12/02/18 13:06 ABG pCO2 46 mmHg (35-45) H 12/02/18 13:06 ABG pO2 358 mmHg (83-108) H 12/02/18 13:06 ABG O2 Saturation 100.0 % (94-97) H 12/02/18 13:06 Abnormal lab findings: Abnormal Labs 11/18/18 11/28/18 12/01/18 14:04 05:00 12:52 ABG pH ABG pCO2 ABG pO2 ABG HCO3 ABG Total CO2 ABG O2 Saturation ABG Hematocrit ABG Potassium ABG Ionized Calcium ABG Glucose ABG Lactic Acid Hemoglobin POC Glucose (mg/dL) Arterial Blood Potassium Arterial Blood Glucose Crossmatch See Detail See Detail See Detail 12/02/18 12/02/18 12/02/18 06:04 08:36 09:23 ABG pH ABG pCO2 48 H 47 H ABG pO2 >420 H 183 H ABG HCO3 28 H 27 H ABG Total CO2 29 H 29 H ABG O2 Saturation 100.0 H 100.0 H ABG Hematocrit ABG Potassium ABG Ionized Calcium ABG Glucose 211 H 165 H ABG Lactic Acid 1.8 H 2.1 H Hemoglobin 12.3 L POC Glucose (mg/dL) 296 H Arterial Blood Potassium Arterial Blood Glucose 211 H 165 H Crossmatch 12/02/18 12/02/18 12/02/18 09:23 09:25 09:25 ABG pH ABG pCO2 46 H 48 H ABG pO2 187 H 220 H 310 H ABG HCO3 27 H 27 H 27 H ABG Total CO2 28 H 29 H 28 H ABG O2 Saturation 100.0 H 100.0 H 100.0 H ABG Hematocrit 28 L 27 L ABG Potassium 4.7 H ABG Ionized Calcium 4.4 L 4.4 L ABG Glucose 164 H 220 H 179 H ABG Lactic Acid 2.1 H 2.3 H* 2.5 H* Hemoglobin 12.4 L 9.2 L 8.9 L POC Glucose (mg/dL) Arterial Blood Potassium 4.7 H Arterial Blood Glucose 164 H 220 H 179 H Crossmatch 12/02/18 12/02/18 12/02/18 11:06 11:38 12:21 ABG pH ABG pCO2 46 H 48 H ABG pO2 306 H 300 H 334 H ABG HCO3 26 H 27 H 27 H ABG Total CO2 27 H 28 H 28 H ABG O2 Saturation 100.0 H 100.0 H 100.0 H ABG Hematocrit 29 L 27 L 28 L ABG Potassium 4.6 H 4.8 H ABG Ionized Calcium 4.4 L 4.3 L 4.3 L ABG Glucose 164 H 180 H 188 H ABG Lactic Acid 2.7 H* 2.7 H* 2.7 H* Hemoglobin 9.3 L 8.9 L 9.0 L POC Glucose (mg/dL) Arterial Blood Potassium 4.6 H 4.8 H Arterial Blood Glucose 164 H 180 H 188 H Crossmatch 12/02/18 12/02/18 12/02/18 12:52 13:01 13:06 ABG pH 7.29 L ABG pCO2 46 H 58 H 46 H ABG pO2 372 H 40 L* 358 H ABG HCO3 26 H 28 H 26 H ABG Total CO2 27 H 29 H 27 H ABG O2 Saturation 100.0 H 69.6 L 100.0 H ABG Hematocrit 27 L 26 L 26 L ABG Potassium 4.7 H 4.8 H 4.7 H ABG Ionized Calcium 4.3 L 4.3 L 4.3 L ABG Glucose 210 H 196 H 201 H ABG Lactic Acid 2.7 H* 2.7 H* 2.8 H* Hemoglobin 8.8 L 8.4 L 8.6 L POC Glucose (mg/dL) Arterial Blood Potassium 4.7 H 4.8 H 4.7 H Arterial Blood Glucose 210 H 196 H 201 H Crossmatch 12/02/18 15:01 ABG pH ABG pCO2 ABG pO2 ABG HCO3 ABG Total CO2 ABG O2 Saturation ABG Hematocrit ABG Potassium ABG Ionized Calcium ABG Glucose ABG Lactic Acid Hemoglobin POC Glucose (mg/dL) 139 H Arterial Blood Potassium Arterial Blood Glucose Crossmatch - Diagnostic Findings Chest x-ray: report reviewed, image reviewed Assessment and Plan Plan: Assessment: #1. Severe symptomatic aortic valve stenosis and coronary artery disease, status post aortic valve replacement and one-vessel bypass, SVG to the RCA,post op day 0 #2. Postoperative ventilator management #3. Diabetes mellitus with diabetic neuropathy #4. Hypertension, hyperlipidemia #5. Morbid obesity #6. Osteoarthritis #7. Release episodes of pneumonia #8. Postoperative infections owing left total hip arthroplasty, and right total hip arthroplasty,requiring IV antibiotic infusions maintenance dose of oral doxycycline Plan: Postop chest x-ray has been reviewed, showed left basilar atelectasis, no other acute pulmonary process, postop blood work is pending. Blood gases pending. Not much drainage out of the mediastinal right pleural chest tube. Hemodynamically patient is stable. We'll proceed with spontaneous breathing trials and extubation once the patient is awake and following commands. Continue oral doxycycline, nebulized bronchodilators, incentive spirometer to the bedside, deep breathing and coughing after extubation. Daily chest x-rays and labs. Will continue to closely follow I performed a history & physical examination of the patient and discussed their management with my nurse practitioner, Niurka Read. I reviewed the nurse practitioner's note and agree with the documented findings and plan of care. Lung sounds are positive for diffuse wheezes throughout the lung stein. The findings and the impression was discussed with the patient. I attest to the documentation by the nurse practitioner. Time with Patient: Greater than 30
[2018-12-02] MEDS: INSULIN REGULAR 100 UNIT in SODIUM CHLORIDE 0.9% 100 ML IV SCH (16:19)
[2018-12-02] MEDS: LACTATED RINGERS 1,000 ML IV SCH (16:21)
[2018-12-02] MEDS: ACETAMINOPHEN IV (For NPO) 1,000 MG in EMPTY BAG 1 BAG IVPB SCH (16:22)
[2018-12-02] MEDS: IPRATROPIUM-ALBUTEROL 3 ML NEB INHALATION SCH ×3 (16:26→21:05)
[2018-12-02 16:28] LABS: Glucose,Whole Blood 133 mg/dL (75-99)
[2018-12-02] MEDS: CLEVIDIPINE BUTYRATE 25 MG in EMPTY BAG 1 BAG IV SCH ×2 (16:46→23:35)
[2018-12-02 16:52] LABS: Basophils # (A) 0.1 k/uL (0-0.2); Basophils % (A) 0 %; Eosinophils # (A) 0.2 k/uL (0-0.7); Eosinophils % (A) 1 %; HGB 11.6 gm/dL (13.0-17.5); Lymphocytes # (A) 3.1 k/uL (1.0-4.8); Lymphocytes % (A) 20 %; MCHC 34.2 g/dL (31.0-37.0); MCV 99.4 fL (80.0-100.0); Macrocytosis Slight; Mean Platelet Volume 6.7; Monocytes # (A) 0.9 k/uL (0-1.0); Monocytes % (A) 6 %; Neutrophils # (A) 10.9 k/uL (1.3-7.7); Neutrophils % (A) 72 %; Platelet Count 201 k/uL (150-450); RBC 3.42 m/uL (4.30-5.90); RDW 14.9 % (11.5-15.5); WBC 15.2 k/uL (3.8-10.6)
[2018-12-02 16:55] LABS: Ionized Calcium 4.8 mg/dL (4.5-5.3)
[2018-12-02 16:59] LABS: Glucose,Whole Blood 142 mg/dL (75-99)
[2018-12-02 17:05] LABS: Partial Thromboplastin Time 35.9 sec (22.0-30.0); Prothrombin Time 10.6 sec (9.0-12.0)
[2018-12-02 17:27] LABS: Calcium 7.9 mg/dL (8.4-10.2); Magnesium 2.6 mg/dL (1.6-2.3); Potassium 5.5 mmol/L (3.5-5.1); Total Bilirubin 1.3 mg/dL (0.2-1.3); Total Protein 4.9 g/dL (6.3-8.2)
[2018-12-02] MEDS: ALBUMIN HUMAN 5% 250 ML in EMPTY BAG 1 BAG IVPB PRN ×2 (17:54→17:56)
[2018-12-02 18:07] LABS: ABG Base Excess -1.1 mmol/L; ABG HCO3 25 mmol/L (21-25); ABG Oxygen Saturation 99.7 % (94-97); ABG PCO2 45 mmHg (35-45); ABG PH 7.35 (7.35-7.45); ABG PO2 146 mmHg (83-108); ABG TCO2 26 mmol/L (19-24)
[2018-12-02 18:20] LABS: Glucose,Whole Blood 138 mg/dL (75-99)
[2018-12-02 18:20] LABS: Glucose,Whole Blood 111 mg/dL (75-99)
[2018-12-02 19:11] LABS: Basophils % (A) 0 %; Eosinophils # (A) 0.1 k/uL (0-0.7); Eosinophils % (A) 1 %; HCT 26.6 % (39.0-53.0); Lymphocytes % (A) 12 %; MCH 34.7 pg (25.0-35.0); MCHC 35.6 g/dL (31.0-37.0); MCV 97.4 fL (80.0-100.0); Mean Platelet Volume 7.3; Monocytes # (A) 0.4 k/uL (0-1.0); Monocytes % (A) 5 %; Neutrophils # (A) 6.6 k/uL (1.3-7.7); Neutrophils % (A) 81 %; Platelet Count 130 k/uL (150-450); Poikilocytosis Slight; RBC 2.73 m/uL (4.30-5.90); RDW 14.7 % (11.5-15.5); WBC 8.1 k/uL (3.8-10.6)
[2018-12-02 19:19] LABS: HGB 9.5 gm/dL (13.0-17.5)
[2018-12-02 19:38] LABS: Glucose,Whole Blood 162 mg/dL (75-99)
[2018-12-02 20:50] LABS: ABG Base Excess -0.1 mmol/L; ABG HCO3 26 mmol/L (21-25); ABG Oxygen Saturation 99.6 % (94-97); ABG PCO2 50 mmHg (35-45); ABG PH 7.32 (7.35-7.45); ABG PO2 142 mmHg (83-108); ABG TCO2 28 mmol/L (19-24)
[2018-12-02] MEDS: DOXYCYCLINE 100 MG CAP PO SCH (21:04)
[2018-12-02 21:05] LABS: Basophils % (A) 0 %; Eosinophils # (A) 0.1 k/uL (0-0.7); Eosinophils % (A) 1 %; HCT 27.5 % (39.0-53.0); HGB 9.4 gm/dL (13.0-17.5); Lymphocytes # (A) 0.6 k/uL (1.0-4.8); Lymphocytes % (A) 8 %; MCHC 34.2 g/dL (31.0-37.0); MCV 99.6 fL (80.0-100.0); Macrocytosis Slight; Mean Platelet Volume 7.2; Monocytes # (A) 0.3 k/uL (0-1.0); Monocytes % (A) 4 %; Neutrophils # (A) 6.7 k/uL (1.3-7.7); Neutrophils % (A) 85 %; Platelet Count 117 k/uL (150-450); RBC 2.76 m/uL (4.30-5.90); WBC 7.8 k/uL (3.8-10.6)
[2018-12-02 21:08] LABS: Ionized Calcium 4.7 mg/dL (4.5-5.3)
[2018-12-02 21:14] LABS: Glucose,Whole Blood 154 mg/dL (75-99); Prothrombin Time 10.8 sec (9.0-12.0)
[2018-12-02 21:16] LABS: Calcium 7.8 mg/dL (8.4-10.2); Magnesium 2.4 mg/dL (1.6-2.3); Phosphorus 3.2 mg/dL (2.5-4.5); Potassium 4.9 mmol/L (3.5-5.1); Total Bilirubin 0.8 mg/dL (0.2-1.3); Total Protein 4.7 g/dL (6.3-8.2)
--- NOTE | 2018-12-02 22:36 | OP ---
OPERATIVE REPORT DATE OF SURGERY: 12/02/2018 PREOPERATIVE DIAGNOSES: 1. Severe aortic valve stenosis. 2. Coronary artery disease. POSTOPERATIVE DIAGNOSES: 1. Severe aortic valve stenosis. 2. Coronary artery disease. PROCEDURE: 1. Aortic valve replacement using 23 mm Pelaez Magna Ease bioprosthetic valve. 2. Coronary artery bypass grafting x1 vessel (saphenous vein graft to right coronary artery). 3. Endoscopic vein harvest, right greater saphenous vein. 4. Epiaortic ultrasound. 5. Transesophageal echocardiogram. 6. Closure of sternum using Delano Cable System. SURGEON: Alex Irby M.D. ASSISTANTS: 1. BRITTANY Ricks. 2. Nick Luciano NP. ANESTHESIA: General. SPECIMEN: Aortic valve leaflets. COMPLICATIONS: None. INDICATION: The patient is a 68-year-old male with a history of coronary artery disease, diabetes mellitus, hyperlipidemia, hypertension, osteoarthritis, bilateral hip replacements and former tobacco use who reports progression of shortness of breath. Echocardiogram revealed severe aortic valve stenosis. Cardiac catheterization reveals a single lesion in the proximal right coronary artery. Aortic valve replacement with single- vessel coronary artery bypass was recommended. The risks, benefits and alternatives to these procedures were discussed with the patient and his . All of their questions were answered. Consent was obtained. FINDINGS: The saphenous vein was a good conduit. The right coronary artery contained diffuse calcium but measured 1.3 mm. The aortic valve was trileaflet and contained significant calcium on its leaflets and anulus. There was also scattered calcific plaque noted within the proximal ascending aorta above the sinotubular junction. PROCEDURE IN DETAIL: The patient was taken to the operating room and placed supine on the operating room table. After the induction of general anesthesia he was prepped and draped in the usual sterile fashion. Preoperative transesophageal echocardiogram revealed a preserved left ventricular ejection fraction. The aortic valve was identified and appeared to be trileaflet with heavy calcific load noted on the leaflets themselves. A median sternotomy was performed. Of note, the patient was quite large and there was a fair amount of fat between the skin and sternum. Intravenous heparin was administered. A pericardial cradle was created. Simultaneously, greater saphenous vein was harvested from the right lower extremity using endoscopic technique. All branches were tied. The saphenous vein was a good conduit. The ascending aorta was palpated. Plaque was noted at the takeoff of the innominate artery as well as the arch. The ascending aorta itself did not appear to have significant calcific plaque. Epiaortic ultrasound was then performed. It revealed atheromatous disease within the ascending aorta. I did place an arterial cannula in the distal ascending aorta based on epiaortic ultrasound and palpation. A venous cannula was placed through the right atrial appendage and directed into the IVC. Both antegrade and retrograde catheters were placed as well. The patient was then placed on cardiopulmonary bypass with good decompression of the heart. The aortic cross-clamp was applied. An LV sump was placed in the right superior pulmonary vein. Cardioplegia was delivered in both antegrade and retrograde fashion to achieve arrest of the heart. Of note, cardioplegia was delivered every 15 to 20 minutes while the patient remained under cross-clamp. I began by performing the coronary artery bypass. The inferior wall of the heart was identified. The heart itself was quite fatty. The branches off the right coronary artery were quite small in nature. I did not feel they were amenable for bypass. The distal RCA was dissected free. It did contain a fair amount of calcium throughout its course. A soft spot for bypass was identified. A small arteriotomy was created. This vessel accepted a 1 mm probe. Using the saphenous vein in reverse fashion, an end-to-side anastomosis was created. This was performed using a running 7-0 Prolene suture. The graft was hemostatic and had great flow. Attention was then turned to the aortic valve. An aortotomy was created in the proximal ascending aorta just below the fat pad and carried out in a hockey-stick fashion. CO2 was administered across the operative field. Initial inspection revealed a trileaflet aortic valve with a heavy amount of calcium on its leaflets. The coronary ostia were also identified. Using scissors, the leaflets were excised and sent to Pathology. Remaining calcium was noted on the anulus and this was removed carefully using a rongeur. The aortic root was copiously irrigated with cold saline solution. At the completion of my debridement, there was no significant calcium noted along the anulus. Of note, there were calcific deposits on the proximal ascending aorta scattered throughout, just above the sinotubular junction. Pledgeted sutures were placed circumferentially around the anulus. A sizer was used and a 23 mm Pelaez Magna Ease bioprosthetic valve was chosen. The sutures were passed through the sewing ring. With great care, the bioprosthetic aortic valve was lowered through the proximal ascending aorta into position. The sutures were hand-tied. The coronary ostia did not appear to be affected. The valve seemed to seat nicely. At this point, attention was turned to closure of the aortotomy. I could see now that the inferior portion of the aortotomy incision had extended horizontally. This was repaired using interrupted pledgeted sutures. The initial aortotomy incision was then closed in 2 layers using running 4-0 Prolene suture. At the completion of the closure, I did infuse blood antegrade to test the anastomosis. It did appear to be intact and hemostatic. Attention was then turned to the proximal anastomosis. This was performed in an end-to- side fashion to the ascending aorta using a running 6-0 Prolene suture. One liter of warm blood was delivered in retrograde fashion. Standard de-airing procedures were also performed. The aortic cross-clamp was removed. The graft to the right coronary artery was de-aired in the standard fashion. Temporary atrial and ventricular pacing wires were placed and brought through the skin. The LV sump was removed, as was the retrograde catheter. The patient was then rested on pump for about 20-25 minutes. He then weaned from cardiopulmonary bypass. He without difficulty. Follow-up transesophageal echocardiogram revealed no intracardiac air. The bioprosthetic aortic valve appeared to be working well with no evidence of perivalvular leak. Protamine was administered. There were no adverse reactions. The remaining cannulas were then removed. All surgical sites were again inspected. The aortotomy itself appeared to be hemostatic. BioGlue was placed over the aortotomy incision. The mediastinum was copiously irrigated with warm saline solution. Soft tissues were reapproximated over the ascending aorta. A straight 32-Israeli chest tube was placed and directed into the right pleural space. Two additional straight 32-Israeli chest tubes were placed and directed into the mediastinum. These were all secured to the skin using sutures. There was no excessive bleeding noted. The patient was not requiring any pressor support and had an index greater than 2.5. The sternum was then reapproximated using the Delano Cable System using [id number] cables. At the completion of closure the sternum was well aligned. The remaining wound was closed in multiple layers. A sterile dressing was applied. The patient to tolerate the procedure well. There were no immediate complications. He returned to the ICU in critical but stable condition. MADISON / NINFAN: [id number] / MARLEN
[2018-12-02] MEDS: MUPIROCIN 2% OINT 22 GM TUBE NASAL SCH (22:59)
[2018-12-02 23:21] LABS: Glucose,Whole Blood 143 mg/dL (75-99)
[2018-12-02] MEDS: HEPARIN SODIUM,PORCINE 5,000 UNIT/ML 1 ML VIAL SQ SCH (23:35)
[2018-12-03 00:06] LABS: Glucose,Whole Blood 139 mg/dL (75-99)
[2018-12-03] MEDS: ACETAMINOPHEN IV (For NPO) 1,000 MG in EMPTY BAG 1 BAG IVPB SCH ×4 (00:24→18:47)
[2018-12-03 00:59] LABS: Glucose,Whole Blood 128 mg/dL (75-99)
[2018-12-03 02:08] LABS: Glucose,Whole Blood 129 mg/dL (75-99)
[2018-12-03 03:14] LABS: Glucose,Whole Blood 133 mg/dL (75-99)
[2018-12-03 04:09] LABS: Glucose,Whole Blood 144 mg/dL (75-99)
[2018-12-03 04:47] LABS: Basophils % (A) 0 %; Eosinophils # (A) 0.1 k/uL (0-0.7); Eosinophils % (A) 1 %; HCT 32.9 % (39.0-53.0); HGB 10.7 gm/dL (13.0-17.5); Lymphocytes # (A) 1.3 k/uL (1.0-4.8); Lymphocytes % (A) 13 %; MCH 33.8 pg (25.0-35.0); MCHC 32.5 g/dL (31.0-37.0); MCV 103.8 fL (80.0-100.0); Macrocytosis Moderate; Mean Platelet Volume 8.2; Monocytes # (A) 0.7 k/uL (0-1.0); Monocytes % (A) 7 %; Neutrophils # (A) 7.4 k/uL (1.3-7.7); Neutrophils % (A) 76 %; Platelet Count 139 k/uL (150-450); RBC 3.17 m/uL (4.30-5.90); RDW 15.1 % (11.5-15.5); WBC 9.7 k/uL (3.8-10.6)
[2018-12-03 04:50] LABS: Ionized Calcium 4.8 mg/dL (4.5-5.3)
[2018-12-03 04:52] LABS: Partial Thromboplastin Time 28.3 sec (22.0-30.0); Prothrombin Time 10.8 sec (9.0-12.0)
[2018-12-03 05:03] LABS: Albumin 2.8 g/dL (3.5-5.0); Calcium 7.8 mg/dL (8.4-10.2); Magnesium 2.7 mg/dL (1.6-2.3); Potassium 4.3 mmol/L (3.5-5.1); Total Protein 4.6 g/dL (6.3-8.2)
[2018-12-03 05:14] LABS: Glucose,Whole Blood 140 mg/dL (75-99)
[2018-12-03 05:52] LABS: Ionized Calcium 4.7 mg/dL (4.5-5.3)
[2018-12-03 05:55] LABS: Partial Thromboplastin Time 26.7 sec (22.0-30.0); Prothrombin Time 10.7 sec (9.0-12.0)
--- NOTE | 2018-12-03 06:02 | P.CRDCN ---
History of Present Illness Consult date: 12/03/18 Chief complaint: Status post aortic valve replacement History of present illness: This is a pleasant 68-year-old gentleman who follows with Dr. Brennan in the office as an outpatient with a past medical history significant for aortic stenosis, hypertension, dyslipidemia, and diabetes, as well as prior history of smoking and also prior history of alcohol, who was experiencing symptoms of exertional dyspnea was getting progressed for the last several months. He did also had an episode of syncope. Did not have any symptoms of chest pain or chest discomfort. He was seen and evaluated by Dr. Brennan and the patient was diagnosed with aortic stenosis. He underwent transesophageal echocardiogram which showed a trileaflet aortic valve with heavily calcified valve and evidence of severe aortic sclerosis as well as severe aortic stenosis. There was also mild MR only. Subsequently the patient underwent a heart catheterization which showed calcified left and right coronary system with severe disease involving the mid RCA. The patient underwent yesterday electively aortic valve replacement using bioprosthetic valve along with coronary artery bypass grafting 1 with SVG to RCA. This is post operation day #1. The patient was extubated yesterday. He is overall doing good. The hemoglobin is stable. The creatinine is a stable. He has been maintaining a good urine output. The chest x-ray was reviewed and showed mild right pleural effusion. The patient continues to be on dual antiplatelet therapy with aspirin as well as Plavix. He is also on metoprolol which is going to be started later on today. 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 The blood pressure has been on the higher side. The patient has been maintaining normal sinus mechanism. Past Medical History Past Medical History: Coronary Artery Disease (CAD), Chest Pain / Angina, Diabetes Mellitus, Hyperlipidemia, Hypertension, Osteoarthritis (OA), Pneumonia Additional Past Medical History / Comment(s): SOB, pain mid back, MURMUR, HX OF HERPES, on preventitive valtrex, DIABETIC NEUROPATHY. 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 07-25-15 .LT HIP REPLACEMENT. ADMITTED WITH INC CELLULITIS LT HIP Past Anesthesia/Blood Transfusion Reactions: No Reported Reaction Additional Past Anesthesia/Blood Transfusion Reaction / Comment(s): Pt has received blood transfusion without reaction. Smoking Status: Former smoker - Past Family History Father Family Medical History: Diabetes Mellitus, Hypertension, Memory Impairment Mother Family Medical History: CVA/TIA Brother(s) Family Medical History: Diabetes Mellitus, Hyperlipidemia, Hypertension Son(s) Family Medical History: No Reported History Medications and Allergies Home Medications Medication Instructions Recorded Confirmed Type valACYclovir HCL [Valtrex] 500 mg PO DAILY 07/18/15 12/02/18 History Aspirin EC [Ecotrin Low Dose] 81 mg PO HS 10/02/17 12/02/18 History Citalopram Hydrobromide [CeleXA] 20 mg PO DAILY 10/02/17 12/02/18 History hydrALAZINE HCL [Apresoline] 25 mg PO TID 10/02/17 12/02/18 History Cholecalciferol [Vitamin D3] 1,000 unit PO DAILY 11/12/18 12/02/18 History Doxycycline [Vibramycin] 100 mg PO BID 11/12/18 12/02/18 History Furosemide [Lasix] 40 mg PO DAILY 11/12/18 12/02/18 History Insulin Aspart [NovoLOG] 0 units SQ TID-W/MEALS PRN 11/12/18 12/02/18 History Insulin Aspart [NovoLOG] 27 units SQ TID-W/MEALS 11/12/18 12/02/18 History Insulin Glargine [Lantus] 80 unit SQ HS 11/12/18 12/02/18 History Meloxicam 15 mg PO DAILY 11/12/18 12/02/18 History Metoprolol Tartrate [Lopressor] 25 mg PO BID 11/12/18 12/02/18 History Omeprazole [PriLOSEC] 20 mg PO AC-BRKFST 11/12/18 12/02/18 History Pregabalin [Lyrica] 100 mg PO BID 11/12/18 12/02/18 History metFORMIN HCL [Glucophage] 500 mg PO BID 11/12/18 12/02/18 History traMADol HCL [Ultram] 50 mg PO TID PRN 11/12/18 12/02/18 History Allergies Allergy/AdvReac Type Severity Reaction Status Date / Time Penicillins Allergy Rash/Hives Verified 12/02/18 15:12 Physical Exam Vitals: Vital Signs Temp Pulse Pulse Resp BP BP Pulse Ox 12/03/18 05:30 76 14 95 12/03/18 05:15 82 24 94 L 12/03/18 05:00 100.4 F H 76 17 93 L 12/03/18 04:45 75 16 95 12/03/18 04:30 73 15 96 12/03/18 04:15 73 15 96 12/03/18 04:00 100.6 F H 73 15 95 12/03/18 03:45 75 14 97 12/03/18 03:30 77 16 96 12/03/18 03:15 75 27 H 95 12/03/18 03:00 100.4 F H 75 17 94 L 12/03/18 02:45 76 14 98 12/03/18 02:30 76 18 96 12/03/18 02:15 75 18 97 12/03/18 02:00 100.6 F H 75 16 95 12/03/18 01:45 75 16 97 12/03/18 01:30 78 14 95 12/03/18 01:15 100.6 F H 76 14 98 12/03/18 01:00 77 16 100 12/03/18 00:45 77 20 98 12/03/18 00:30 77 18 98 12/03/18 00:15 80 20 97 12/03/18 00:00 100.4 F H 81 14 95 12/02/18 23:45 81 14 97 12/02/18 23:30 83 16 97 12/02/18 23:15 82 14 97 12/02/18 23:00 100.6 F H 82 20 95 12/02/18 22:45 83 16 97 12/02/18 22:30 82 20 97 12/02/18 22:15 80 14 96 12/02/18 22:00 100.0 F H 80 18 97 12/02/18 21:46 82 14 97 12/02/18 21:30 79 20 96 12/02/18 21:15 75 20 98 12/02/18 21:00 100.0 F H 76 22 98 12/02/18 20:45 76 24 96 12/02/18 20:30 71 20 98 12/02/18 20:15 71 20 99 12/02/18 20:00 66 20 99 12/02/18 19:45 99.7 F H 66 20 100 12/02/18 19:30 69 20 98 12/02/18 19:28 72 22 12/02/18 19:17 67 22 12/02/18 19:15 98.6 F 68 20 98 12/02/18 19:00 69 20 100 12/02/18 18:45 68 20 98 12/02/18 18:30 78 20 96 12/02/18 18:15 70 20 100 12/02/18 18:00 73 43 H 100 12/02/18 17:45 72 20 100 12/02/18 17:30 73 20 99 12/02/18 17:15 69 13 96 12/02/18 17:00 71 16 100 12/02/18 16:45 75 19 100 12/02/18 16:37 80 22 12/02/18 16:30 79 20 100 12/02/18 16:27 78 22 12/02/18 16:15 68 20 97 12/02/18 16:00 82 20 100 12/02/18 15:45 80 14 100 12/02/18 15:30 99.7 F H 74 14 100 12/02/18 05:59 97.3 F L 70 16 167/70 135/88 98 Intake and Output 12/02/18 12/02/18 12/03/18 14:59 22:59 06:59 Intake Total 31 6761.049 0337.433 Output Total 2600 783 699 Balance -2569 493.694 330.433 Intake: IV 31 1186.0 731.5 ACETAMINOPHEN IV (For NPO 100 200 ) 1,000 mg In Empty Bag 1 bag @ 400 mls/hr IVPB Q6HR [facility] Rx#:[id number] Albumin Human 5% 250 ml 500 In Empty Bag 1 bag @ 250 mls/hr IVPB Q1HR PRN Rx#: [id number] Co/CI 20 60 Lactated Ringers 1,000 ml 400 340 @ 50 mls/hr IV .Q20H [facility] Rx#:[id number] Nitroglycerin-D5w Pmx 50 12.0 10.5 mg In Dextrose/Water 1 250ml.bag @ Per Protocol IV ONCE ONE Rx#:[id number] PRESSURE BAGS 54 21 ceFAZolin 3 gm In Sodium 100 100 Chloride 0.9% 100 ml @ 100 mls/hr IVPB Q8HR [facility] Rx#:[id number] Intake, IV Titration 45.694 57.933 Amount Clevidipine Butyrate 25 31.166 mg In Empty Bag 1 bag @ 1 MG/HR 2 mls/hr IV .Q24H [facility] Rx#:[id number] Insulin Regular 100 unit 31.399 26.767 In Sodium Chloride 0.9% 100 ml @ Per Protocol IV .Q0M [facility] Rx#:[id number] Propofol 1,000 mg In 14.295 Empty Bag 1 bag @ Titrate IV .Q0M [facility] Rx#: [id number] Oral 240 Other 45 Output: Chest Tube Drainage 282 302 Mediastinal x 2 251 144 RIGHT PLEURAL 31 158 Gastric Drainage 150 Urine 600 351 277 Emesis 120 Estimated Blood Loss 1999 Other: Voiding Method Indwelling Catheter Indwelling Catheter Weight 127.119 kg 134.9 kg ABP, PAP, CO, CI - Last 8 Hours Arterial Blood Pressure 166/50 Arterial Blood Pressure 157/50 Arterial Blood Pressure 141/42 Arterial Blood Pressure 143/38 Arterial Blood Pressure 140/40 Arterial Blood Pressure 146/40 Arterial Blood Pressure 140/40 Arterial Blood Pressure 155/42 Arterial Blood Pressure 163/43 Arterial Blood Pressure 142/39 Arterial Blood Pressure 152/41 Arterial Blood Pressure 143/41 Arterial Blood Pressure 138/40 Arterial Blood Pressure 134/40 Arterial Blood Pressure 128/40 Arterial Blood Pressure 122/42 Arterial Blood Pressure 122/41 Arterial Blood Pressure 125/41 Arterial Blood Pressure 136/43 Arterial Blood Pressure 125/40 Arterial Blood Pressure 140/44 Arterial Blood Pressure 138/45 Arterial Blood Pressure 130/45 Arterial Blood Pressure 140/46 Arterial Blood Pressure 136/46 Arterial Blood Pressure 132/46 Arterial Blood Pressure 144/47 Arterial Blood Pressure 141/47 Arterial Blood Pressure 135/46 Arterial Blood Pressure 141/48 Arterial Blood Pressure 136/47 Pulmonary Artery Pressure 30/21 Pulmonary Artery Pressure 32/20 Pulmonary Artery Pressure 23/15 Pulmonary Artery Pressure 21/14 Pulmonary Artery Pressure 22/12 Pulmonary Artery Pressure 22/15 Pulmonary Artery Pressure 25/15 Pulmonary Artery Pressure 28/19 Pulmonary Artery Pressure 25/18 Pulmonary Artery Pressure 27/16 Pulmonary Artery Pressure 24/16 Pulmonary Artery Pressure 25/16 Pulmonary Artery Pressure 25/18 Pulmonary Artery Pressure 26/17 Pulmonary Artery Pressure 24/16 Pulmonary Artery Pressure 26/18 Pulmonary Artery Pressure 25/18 Pulmonary Artery Pressure 25/16 Pulmonary Artery Pressure 25/16 Pulmonary Artery Pressure 24/16 Pulmonary Artery Pressure 25/17 Pulmonary Artery Pressure 24/16 Pulmonary Artery Pressure 26/15 Pulmonary Artery Pressure 28/15 Pulmonary Artery Pressure 26/16 Pulmonary Artery Pressure 25/14 Pulmonary Artery Pressure 28/18 Pulmonary Artery Pressure / Pulmonary Artery Pressure 28/17 Pulmonary Artery Pressure 30/ Pulmonary Artery Pressure 30/18 Cardiac Output 6.2 Cardiac Output 6.2 Cardiac Output 6.2 Cardiac Output 6.2 Cardiac Output 6.2 Cardiac Output 6.2 Cardiac Output 6.2 Cardiac Output 6.2 Cardiac Output 6.2 Cardiac Output 6.2 Cardiac Output 6.2 Cardiac Output 6.2 Cardiac Output 6.2 Cardiac Output 6.2 Cardiac Output 6.2 Cardiac Output 6.2 Cardiac Output 6.2 Cardiac Output 6.2 Cardiac Output 6.2 Cardiac Output 6.2 Cardiac Output 6.2 Cardiac Output 6.2 Cardiac Output 5.7 Cardiac Output 5.7 Cardiac Output 5.7 Cardiac Output 5.7 Cardiac Output 7.1 Cardiac Output 7.1 Cardiac Output 7.1 Cardiac Output 7.1 Cardiac Output 7.1 Cardiac Index 2.6 Cardiac Index 2.6 - Constitutional General appearance: no acute distress - Respiratory Respiratory: bilateral: diminished - Cardiovascular Rhythm: regular Heart sounds: normal: S1, S2 Abnormal Heart Sounds: systolic murmur Results 12/03/18 04:38 12/03/18 04:38 Cardiac Enzymes 12/02/18 12/02/18 12/03/18 Range/Units 16:40 20:50 04:38 AST 98 H 87 H 82 H (17-59) U/L Coagulation 12/02/18 12/02/18 12/03/18 Range/Units 16:40 20:50 04:38 PT 10.6 10.8 10.8 (9.0-12.0) sec APTT 35.9 H 26.0 28.3 (22.0-30.0) sec 12/03/18 Range/Units 04:57 PT 10.7 (9.0-12.0) sec APTT 26.7 (22.0-30.0) sec CBC 12/02/18 12/02/18 12/02/18 Range/Units 16:40 18:58 20:50 WBC 15.2 H 8.1 7.8 (3.8-10.6) k/uL RBC 3.42 L 2.73 L 2.76 L (4.30-5.90) m/uL Hgb 11.6 L 9.5 L D 9.4 L (13.0-17.5) gm/dL Hct 34.0 L 26.6 L 27.5 L (39.0-53.0) % Plt Count 201 130 L 117 L (150-450) k/uL 12/03/18 Range/Units 04:38 WBC 9.7 (3.8-10.6) k/uL RBC 3.17 L (4.30-5.90) m/uL Hgb 10.7 L (13.0-17.5) gm/dL Hct 32.9 L (39.0-53.0) % Plt Count 139 L (150-450) k/uL Comprehensive Metabolic Panel 12/02/18 12/02/18 12/03/18 Range/Units 16:40 20:50 04:38 Sodium 142 141 144 (137-145) mmol/L Potassium 5.5 H 4.9 4.3 (3.5-5.1) mmol/L Chloride 113 H 112 H 112 H (98-107) mmol/L Carbon Dioxide 23 27 26 (22-30) mmol/L BUN 18 19 17 (9-20) mg/dL Creatinine 1.35 H 1.39 H 1.17 (0.66-1.25) mg/dL Glucose 136 H 142 H 99 (74-99) mg/dL Calcium 7.9 L 7.8 L 7.8 L (8.4-10.2) mg/dL AST 98 H 87 H 82 H (17-59) U/L ALT 51 45 49 (21-72) U/L Alkaline Phosphatase 60 46 65 (38-126) U/L Total Protein 4.9 L 4.7 L 4.6 L (6.3-8.2) g/dL Albumin 3.0 L 3.0 L 2.8 L (3.5-5.0) g/dL Current Medications Generic Name Dose Route Start Last Admin Trade Name Freq PRN Reason Stop Dose Admin Hydrocodone Bitart/Acetaminophen 2 each 12/03/18 23:00 [place] 5-325 PO Q4HR PRN Severe Pain Hydrocodone Bitart/Acetaminophen 1 each 12/03/18 23:00 [place] 5-325 PO Q4HR PRN Moderate Pain Albuterol/Ipratropium 3 ml 12/02/18 14:53 Duoneb 0.5 Mg-3 Mg/3 Ml Soln INHALATION RT-Q2H PRN Shortness Of Breath Or Wheezing Albuterol/Ipratropium 3 ml 12/02/18 20:39 12/02/18 21:05 Duoneb 0.5 Mg-3 Mg/3 Ml Soln INHALATION Not Given RT-QID [facility] Aspirin 325 mg 12/03/18 09:00 Aspirin PO DAILY [facility] Atorvastatin Calcium 40 mg 12/03/18 09:00 Lipitor PO DAILY [facility] Benzocaine/Menthol 1 each 12/02/18 14:53 Cepacol Lozenge MUCOUS MEM Q2H PRN Sore Throat Bisacodyl 10 mg 12/03/18 14:38 Dulcolax RECTAL DAILY PRN Constipation Cholecalciferol 1,000 unit 12/03/18 12:00 Vitamin D3 PO DAILY@1200 [facility] Citalopram Hydrobromide 20 mg 12/03/18 09:00 Celexa PO DAILY [facility] Clopidogrel Bisulfate 75 mg 12/03/18 09:00 Plavix PO DAILY [facility] Doxycycline Monohydrate 100 mg 12/02/18 21:00 12/02/18 21:04 Vibramycin PO 100 mg BID [facility] Administration Heparin Sodium (Porcine) 5,000 unit 12/02/18 22:39 12/02/18 23:35 Heparin SQ 5,000 unit Q8HR [facility] Administration Hydralazine HCl 20 mg 12/02/18 15:57 Apresoline IVP Q4HR PRN Blood Pressure - High Acetaminophen 1,000 mg/ IV 100 mls @ 400 mls/hr 12/02/18 18:00 12/03/18 05:28 Solution IVPB 12/03/18 18:01 400 mls/hr Q6HR [facility] Administration Albumin Human 250 ml/ IV 250 mls @ 250 mls/hr 12/02/18 14:53 12/02/18 17:56 Solution IVPB 12/04/18 14:54 250 mls/hr Q1HR PRN Administration For Volume Amiodarone HCl 150 mg/ 103 mls @ 618 mls/hr 12/02/18 14:53 Dextrose/Water IV .Q10M PRN Per protocol Protocol Amiodarone HCl 450 mg/ 259 mls @ 34.53 mls/hr 12/02/18 14:53 Dextrose/Water IV .Q7H31M PRN Per Protocol Protocol 1 MG/MIN Calcium Chloride 1,000 mg/ 110 mls @ 100 mls/hr 12/02/18 14:53 Sodium Chloride IV 01/01/19 14:54 ONCE PRN Ionized Calcium less than 4.4 Clevidipine 25 mg/ IV Solution 50 mls @ 2 mls/hr 12/02/18 14:53 12/03/18 05: 25 IV 8 mg/hr .Q24H [facility] 16 mls/hr Titration Protocol 1 MG/HR Insulin Human Regular 100 unit 101 mls @ 0 mls/hr 12/02/18 14:53 12/03/18 04: 09 / Sodium Chloride IV 5.5 unit/hr .Q0M [facility] 5.55 mls/hr Titration Protocol Per Protocol Lactated Ringer's 1,000 mls @ 50 mls/hr 12/02/18 14:53 12/02/18 16:21 Lactated Ringers IV 50 mls/hr .Q20H [facility] Administration Nitroglycerin/Dextrose 50 mg/ 250 mls @ 1.5 mls/hr 12/02/18 14:53 12/02/18 16 :59 IV Solution IV 5 mcg/min .Q24H [facility] 1.5 mls/hr Administration 5 MCG/MIN Cefazolin Sodium 3 gm/ Sodium 50 mls @ 50 mls/hr 12/02/18 16:00 12/03/18 00: 25 Chloride IVPB 12/04/18 00:59 50 mls/hr Q8HR [facility] Administration Magnesium Hydroxide 2,400 mg 12/03/18 14:38 Milk Of Magnesia PO BID PRN Constipation Metoclopramide HCl 10 mg 12/02/18 14:53 Reglan IVP Q4H PRN Nausea And Vomiting Metoprolol Tartrate 12.5 mg 12/03/18 09:00 Lopressor PO BID [facility] Miscellaneous Information 1 each 12/02/18 14:53 Magnesium Per Protocol MISCELLANE DAILY PRN Per Protocol Protocol Miscellaneous Information 1 each 12/02/18 14:53 Phosphorus Per Protocol MISCELLANE DAILY PRN Per Protocol Protocol Miscellaneous Information 1 each 12/02/18 14:53 Potassium Per Protocol MISCELLANE DAILY PRN Per Protocol Protocol Mupirocin 1 applic 12/02/18 21:00 12/02/18 22:59 Bactroban Oint NASAL 12/05/18 21:01 1 applic BID [facility] Administration Ondansetron HCl 4 mg 12/02/18 14:53 12/03/18 05:17 Zofran IVP 4 mg Q6HR PRN Administration Nausea And Vomiting Oxycodone HCl 10 mg 12/02/18 14:53 12/03/18 05:29 Oxyir PO 12/03/18 23:00 10 mg Q4H PRN Administration Severe Pain Oxycodone HCl 5 mg 12/02/18 14:53 Oxyir PO 12/03/18 23:00 Q4H PRN Moderate Pain Pantoprazole Sodium 40 mg 12/03/18 09:00 Protonix IVP DAILY [facility] Pregabalin 100 mg 12/03/18 09:00 Lyrica PO BID [facility] Senna/Docusate Sodium 2 each 12/03/18 21:00 Senokot-S PO HS [facility] Sodium Chloride 10 ml 12/02/18 21:00 12/02/18 21:03 Saline Flush IV Not Given BID [facility] Valacyclovir HCl 500 mg 12/03/18 09:00 Valtrex PO DAILY [facility] Intake and Output 12/02/18 12/02/18 12/03/18 14:59 22:59 06:59 Intake Total 31 8821.076 3239.433 Output Total 2600 783 699 Balance -2569 493.694 330.433 Intake: IV 31 1186.0 731.5 ACETAMINOPHEN IV (For NPO 100 200 ) 1,000 mg In Empty Bag 1 bag @ 400 mls/hr IVPB Q6HR [facility] Rx#:[id number] Albumin Human 5% 250 ml 500 In Empty Bag 1 bag @ 250 mls/hr IVPB Q1HR PRN Rx#: [id number] Co/CI 20 60 Lactated Ringers 1,000 ml 400 340 @ 50 mls/hr IV .Q20H [facility] Rx#:[id number] Nitroglycerin-D5w Pmx 50 12.0 10.5 mg In Dextrose/Water 1 250ml.bag @ Per Protocol IV ONCE ONE Rx#:[id number] PRESSURE BAGS 54 21 ceFAZolin 3 gm In Sodium 100 100 Chloride 0.9% 100 ml @ 100 mls/hr IVPB Q8HR [facility] Rx#:[id number] Intake, IV Titration 45.694 57.933 Amount Clevidipine Butyrate 25 31.166 mg In Empty Bag 1 bag @ 1 MG/HR 2 mls/hr IV .Q24H [facility] Rx#:[id number] Insulin Regular 100 unit 31.399 26.767 In Sodium Chloride 0.9% 100 ml @ Per Protocol IV .Q0M [facility] Rx#:[id number] Propofol 1,000 mg In 14.295 Empty Bag 1 bag @ Titrate IV .Q0M [facility] Rx#: [id number] Oral 240 Other 45 Output: Chest Tube Drainage 282 302 Mediastinal x 2 251 144 RIGHT PLEURAL 31 158 Gastric Drainage 150 Urine 600 351 277 Emesis 120 Estimated Blood Loss 1999 Other: Voiding Method Indwelling Catheter Indwelling Catheter Weight 127.119 kg 134.9 kg Patient Weight 12/03/18 06:59 Weight 134.9 kg 12/03/18 04:38 12/03/18 04:38 Assessment and Plan Assessment: Assessment #1 severe aortic stenosis and status post aortic valve replacement using bioprosthetic valve #2 severe CAD and status post SVG to RCA #3 hypertension #4 dyslipidemia #5 diabetes #6 history of smoking Plan #1 continue the current medical regimen including dual antiplatelet therapy #2 continue daily chest x-ray. #3 try to wean the patient from the nitro drip #4 start beta paul with metoprolol #5 follow-up with the patient. Thank you for allowing us participate in his care
[2018-12-03 06:04] LABS: Albumin 2.7 g/dL (3.5-5.0); Calcium 8.2 mg/dL (8.4-10.2); Magnesium 2.4 mg/dL (1.6-2.3); Potassium 4.7 mmol/L (3.5-5.1); Total Bilirubin 0.6 mg/dL (0.2-1.3); Total Protein 4.5 g/dL (6.3-8.2)
[2018-12-03 06:41] LABS: Basophils % (A) 0 %; Eosinophils % (A) 0 %; HCT 25.9 % (39.0-53.0); Lymphocytes # (A) 1.1 k/uL (1.0-4.8); Lymphocytes % (A) 12 %; MCH 33.7 pg (25.0-35.0); MCHC 33.4 g/dL (31.0-37.0); MCV 100.7 fL (80.0-100.0); Macrocytosis Slight; Monocytes # (A) 0.5 k/uL (0-1.0); Monocytes % (A) 6 %; Neutrophils # (A) 7.4 k/uL (1.3-7.7); Neutrophils % (A) 81 %; Platelet Count 138 k/uL (150-450); RBC 2.57 m/uL (4.30-5.90); RDW 15.2 % (11.5-15.5); WBC 9.1 k/uL (3.8-10.6)
[2018-12-03 06:45] LABS: HGB 8.7 gm/dL (13.0-17.5)
[2018-12-03 07:08] LABS: Glucose,Whole Blood 146 mg/dL (75-99)
--- NOTE | 2018-12-03 07:42 | XR ---
EXAMINATION TYPE: XR chest 1V portable DATE OF EXAM: 12/03/2018 COMPARISON: Prior chest x-ray 12/02/2018 HISTORY: Postop cardiac surgery TECHNIQUE: Single frontal view of the chest is obtained. FINDINGS: Patient is post median sternotomy. Endotracheal tube and NG tube have been removed. Median sternal drains, right chest tube, right jugular central venous she advanced coaxial [place] cathet er remain in place. No evident pneumothorax. Retrocardiac density persists, the left hemidiaphragm is obscured. Aorta is dense. Heart size is stable. There are cardiac leads. IMPRESSION: Left lower lobe atelectasis and possible associated effusion. Interval extubation.
[2018-12-03] MEDS: IPRATROPIUM-ALBUTEROL 3 ML NEB INHALATION SCH ×4 (08:14→19:13)
[2018-12-03 08:32] LABS: Glucose,Whole Blood 144 mg/dL (75-99)
[2018-12-03] MEDS ORDERED: METOPROLOL TARTRATE 12.5 MG TAB PO SCH (09:00)
[2018-12-03] MEDS ORDERED: PANTOPRAZOLE 40 MG/10 ML VIAL IVP SCH (09:00)
[2018-12-03] MEDS: valACYclovir 500 MG TAB PO SCH (09:24)
[2018-12-03] MEDS: ASPIRIN 325 MG TAB PO SCH (09:25)
[2018-12-03] MEDS: MUPIROCIN 2% OINT 22 GM TUBE NASAL SCH ×2 (09:25→21:44)
[2018-12-03] MEDS: METOPROLOL TARTRATE 25 MG TAB PO SCH ×2 (09:25→21:43)
[2018-12-03] MEDS: PREGABALIN 100 MG CAP PO SCH ×2 (09:25→21:43)
[2018-12-03] MEDS: CLOPIDOGREL 75 MG TAB PO SCH (09:25)
[2018-12-03] MEDS: ATORVASTATIN 40 MG TAB PO SCH (09:25)
[2018-12-03] MEDS: CITALOPRAM HYDROBROMIDE 20 MG TAB PO SCH (09:25)
[2018-12-03] MEDS: DOXYCYCLINE 100 MG CAP PO SCH ×2 (09:25→21:43)
--- NOTE | 2018-12-03 09:55 | P.PN ---
Subjective Progress Note Date: 12/03/18 Principal diagnosis: Severe aortic valve stenosis, coronary artery disease, status post aortic valve replacement, and one-vessel bypass grafting This is 68-year-old white male patient of Dr. Jonathan Morataya, past medical history of aortic stenosis, hypertension, hyperlipidemia, family history of coronary artery disease, diabetes mellitus with neuropathy, previous tobacco dependence, occasional EtOH use, basal cell skin carcinoma, osteoarthritis, status post right and left hip replacement, with postoperative infections wiring IV antibiotic infusions per Dr. Ricci. Patient been experiencing exertional dyspnea over the previous 4-6 months, and any syncopal episodes, denied any chest pain. Ration underwent CARMELA and left heart catheterization by Dr. Messina, and the CARMELA showed a 3 leaflet aortic valve with heavy calcification and severe restriction, history of aortic stenosis, trace mitral regurg, mild tricuspid regurg, concentric left ventricular hypertrophy with preserved left ventricular function. The catheterization showed a calcified left main coronary artery without significant stenosis, right coronary artery with proximal stenosis of 40-50% and mid stenosis 70-80% and 30-40% stenosis in the circumflex coronary artery. Preop PFT showed FEV1 of 1.83 L or 56% of predicted , with a forced vital capacity of 2.86 L or 64% of predicted, consistent with moderately severe restriction. 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 Today on 12/02/2018 patient seen in the intensive care unit, in the postoperative period, status post 1 vessel coronary artery bypass, SVG to the RCA, and aortic valve replacement using a bioprosthetic valve. Patient is that it, intubated on mechanical ventilator, current vent settings are SIMV mode with a rate of 12, tidal volume of 580, FiO2 100% and PEEP of 10. Patient was placed on assist-control mode with the same rate and tidal volume and FiO2. Patient is DDD paced, rate of 80 BPM. Current IV drips include lactated Ringer's at a rate of 50 ML per hour, Diprivan at 25 mics per kilo per minute, insulin is a 5 units per hour, nitroglycerin is at 5 mics per kilo per minute. Midsternal incision is clean dry and intact, 2 mediastinal chest tubes connected to Pleur-evac, with 60 mL of serosanguineous output, right pleural chest tube with minimal sanguis output in the Pleur-evac. Postop chest x-ray has been reviewed with Dr. Granda, shows left basal atelectasis, ET tube, NG tube PA catheter are in good locations. Postoperative blood work is pending. On 12/03/2018 patient seen in follow-up in the intensive care unit, patient was extubated at 2130 last night. Currently on 3 L per nasal cannula, pulse ox of 94%, afebrile, in sinus mechanism, with a rate of 74 BPM, blood pressure is 133/ 41, PA pressures of 19/13, with a CVP of 9, cardiac output is 5.9, and cardiac index is 2.4. Maintenance IV fluids are lactated Ringer's at 50 ML per hour,: Percocet 5 mg per hour, and insulin is at 5.5 units per hour. This is postop day 1 post one-vessel CABG, SVG to the RCA, and aortic valve replacement with a bioprosthetic valve. he is awake and alert, he needs it quite a bit of encouragement with deep breathing and coughing, and use of incentive spirometer , lung sounds are positive for crackles at the left lower base, otherwise clear. Incentive spirometer effort is 750 ML today. Today's chest x-ray was reviewed with Dr. Post, and showed left basilar atelectasis, chest tubes and PA catheter are in appropriate positions, with interval removal of the ET tube and OG tube. Today's labs have been reviewed, white blood cell count is 9.1, hemoglobin is 8.7, INR is 1.0, sodium is 143, potassium is 4.7, chloride is 113 , CO2 is 25 BUN is 20, creatinine is 1.32. AST was up slightly to 105 from 82, ALT was 44, alkaline phosphatase was 40. Objective - Vital Signs Vital signs: Vital Signs Temp 100.4 F H 12/03/18 07:00 Pulse 74 12/03/18 09:00 Resp 42 H 12/03/18 09:00 BP 82/38 12/03/18 09:00 Pulse Ox 94 L 12/03/18 09:00 Intake & Output 12/02/18 12/03/18 12/03/18 18:59 06:59 18:59 Intake Total 4295.978 2796.719 212.834 Output Total 2946 1041 342 Balance -1864.092 388.719 -129.166 Weight 127.119 kg 134.9 kg Intake: IV 1063.0 1060.0 194.0 ACETAMINOPHEN IV (For NPO 100 200 ) 1,000 mg In Empty Bag 1 bag @ 400 mls/hr IVPB Q6HR [facility] Rx#:[id number] Albumin Human 5% 250 ml 500 In Empty Bag 1 bag @ 250 mls/hr IVPB Q1HR PRN Rx#: [id number] Co/CI 90 110 20 Lactated Ringers 1,000 ml 200 590 150 @ 20 mls/hr IV .Q24H [facility] Rx#:[id number] Nitroglycerin-D5w Pmx 50 6.0 18.0 3.0 mg In Dextrose/Water 1 250ml.bag @ Per Protocol IV ONCE ONE Rx#:[id number] PRESSURE BAGS 36 42 21 ceFAZolin 3 gm In Sodium 100 100 Chloride 0.9% 100 ml @ 100 mls/hr IVPB Q8HR [facility] Rx#:[id number] Intake, IV Titration 18.908 84.719 18.834 Amount Clevidipine Butyrate 25 31.166 18.834 mg In Empty Bag 1 bag @ 1 MG/HR 2 mls/hr IV .Q24H [facility] Rx#:[id number] Insulin Regular 100 unit 4.613 53.553 In Sodium Chloride 0.9% 100 ml @ Per Protocol IV .Q0M [facility] Rx#:[id number] Propofol 1,000 mg In 14.295 Empty Bag 1 bag @ Titrate IV .Q0M [facility] Rx#: [id number] Oral 240 Other 45 Output: Chest Tube Drainage 201 288 182 Mediastinal x 2 181 167 90 RIGHT PLEURAL 20 121 92 Gastric Drainage 150 Urine 745 483 160 Emesis 120 Estimated Blood Loss 1999 Other: Voiding Method Indwelling Catheter Indwelling Catheter ABP, PAP, CO, CI - Last Documented Arterial Blood Pressure 133/41 Pulmonary Artery Pressure 19/13 Cardiac Output 5.9 Cardiac Index 2.4 - Exam GENERAL EXAM: 68-year-old obese white male patient, currently on 3 L per nasal cannula with a pulse ox of 94%, learning extubation well HEAD: Normocephalic/atraumatic. EYES: Normal reaction of pupils, equal size. Conjunctiva pink, sclera white. NOSE: Clear with pink turbinates. THROAT: No erythema or exudates. NECK: No masses, no JVD, no thyroid enlargement, no adenopathy. CHEST: No chest wall deformity. Symmetrical expansion. Midsternal incision is clean dry and intact, 2 mediastinal chest tubes, right pleural chest tube in place, with small amount of sanguinous output in the Pleur-evacs, no air leak, epicardial wires connected to external pacemaker with a backup mode, intrinsic rhythm was sinus rhythm with rate is 74 BPM LUNGS: Equal air entry with diminished breath sounds at the bases CVS: Regular rate and rhythm, normal S1 and S2, no gallops, no murmurs, no rubs ABDOMEN: Soft, nontender. No hepatosplenomegaly, normal bowel sounds, no guarding or rigidity. EXTREMITIES: No clubbing, no edema, no cyanosis, 2+ pulses and upper and lower extremities. Right lower extremity site is wrapped with Dov wraps, SCDs on bilateral lower extremities MUSCULOSKELETAL: Muscle strength and tone normal. SPINE: No scoliosis or deformity SKIN: No rashes CENTRAL NERVOUS SYSTEM: No focal deficits, tone is normal in all 4 extremities. - Labs CBC & Chem 7: 12/03/18 04:57 12/03/18 04:57 Labs: Abnormal Lab Results - Last 24 Hours (Table) 12/01/18 12/02/18 12/02/18 Range/Units 12:52 08:36 09:23 WBC (3.8-10.6) k/uL RBC (4.30-5.90) m/uL Hgb (13.0-17.5) gm/dL Hct (39.0-53.0) % MCV (80.0-100.0) fL Plt Count (150-450) k/uL Neutrophils # (1.3-7.7) k/uL Lymphocytes # (1.0-4.8) k/uL APTT (22.0-30.0) sec ABG pH (7.35-7.45) ABG pCO2 48 H 47 H (35-45) mmHg ABG pO2 >420 H 183 H (83-108) mmHg ABG HCO3 28 H 27 H (21-25) mmol/L ABG Total CO2 29 H 29 H (19-24) mmol/L ABG O2 Saturation 100.0 H 100.0 H (94-97) % ABG Hematocrit (34.0-46.0) % ABG Potassium (3.4-4.5) mmol/L ABG Ionized Calcium (4.5-5.3) mg/dL ABG Glucose 211 H 165 H (75-99) mg/dL ABG Lactic Acid 1.8 H 2.1 H (0.5-1.6) mmol/L Hemoglobin 12.3 L (13.0-17.5) gm/dL Potassium (3.5-5.1) mmol/L Chloride (98-107) mmol/L Creatinine (0.66-1.25) mg/dL Glucose (74-99) mg/dL POC Glucose (mg/dL) (75-99) mg/dL Calcium (8.4-10.2) mg/dL Magnesium (1.6-2.3) mg/dL AST (17-59) U/L Total Protein (6.3-8.2) g/dL Albumin (3.5-5.0) g/dL Arterial Blood Potassium (3.4-4.5) mmol/L Arterial Blood Glucose 211 H 165 H (75-99) mg/dL Crossmatch See Detail 12/02/18 12/02/18 12/02/18 Range/Units 09:25 10:12 10:40 WBC (3.8-10.6) k/uL RBC (4.30-5.90) m/uL Hgb (13.0-17.5) gm/dL Hct (39.0-53.0) % MCV (80.0-100.0) fL Plt Count (150-450) k/uL Neutrophils # (1.3-7.7) k/uL Lymphocytes # (1.0-4.8) k/uL APTT (22.0-30.0) sec ABG pH (7.35-7.45) ABG pCO2 46 H 48 H (35-45) mmHg ABG pO2 187 H 220 H 310 H (83-108) mmHg ABG HCO3 27 H 27 H 27 H (21-25) mmol/L ABG Total CO2 28 H 29 H 28 H (19-24) mmol/L ABG O2 Saturation 100.0 H 100.0 H 100.0 H (94-97) % ABG Hematocrit 28 L 27 L (34.0-46.0) % ABG Potassium 4.7 H (3.4-4.5) mmol/L ABG Ionized Calcium 4.4 L 4.4 L (4.5-5.3) mg/dL ABG Glucose 164 H 220 H 179 H (75-99) mg/dL ABG Lactic Acid 2.1 H 2.3 H* 2.5 H* (0.5-1.6) mmol/L Hemoglobin 12.4 L 9.2 L 8.9 L (13.0-17.5) gm/dL Potassium (3.5-5.1) mmol/L Chloride (98-107) mmol/L Creatinine (0.66-1.25) mg/dL Glucose (74-99) mg/dL POC Glucose (mg/dL) (75-99) mg/dL Calcium (8.4-10.2) mg/dL Magnesium (1.6-2.3) mg/dL AST (17-59) U/L Total Protein (6.3-8.2) g/dL Albumin (3.5-5.0) g/dL Arterial Blood Potassium 4.7 H (3.4-4.5) mmol/L Arterial Blood Glucose 164 H 220 H 179 H (75-99) mg/dL Crossmatch 12/02/18 12/02/18 12/02/18 Range/Units 11:06 11:38 12:21 WBC (3.8-10.6) k/uL RBC (4.30-5.90) m/uL Hgb (13.0-17.5) gm/dL Hct (39.0-53.0) % MCV (80.0-100.0) fL Plt Count (150-450) k/uL Neutrophils # (1.3-7.7) k/uL Lymphocytes # (1.0-4.8) k/uL APTT (22.0-30.0) sec ABG pH (7.35-7.45) ABG pCO2 46 H 48 H (35-45) mmHg ABG pO2 306 H 300 H 334 H (83-108) mmHg ABG HCO3 26 H 27 H 27 H (21-25) mmol/L ABG Total CO2 27 H 28 H 28 H (19-24) mmol/L ABG O2 Saturation 100.0 H 100.0 H 100.0 H (94-97) % ABG Hematocrit 29 L 27 L 28 L (34.0-46.0) % ABG Potassium 4.6 H 4.8 H (3.4-4.5) mmol/L ABG Ionized Calcium 4.4 L 4.3 L 4.3 L (4.5-5.3) mg/dL ABG Glucose 164 H 180 H 188 H (75-99) mg/dL ABG Lactic Acid 2.7 H* 2.7 H* 2.7 H* (0.5-1.6) mmol/L Hemoglobin 9.3 L 8.9 L 9.0 L (13.0-17.5) gm/dL Potassium (3.5-5.1) mmol/L Chloride (98-107) mmol/L Creatinine (0.66-1.25) mg/dL Glucose (74-99) mg/dL POC Glucose (mg/dL) (75-99) mg/dL Calcium (8.4-10.2) mg/dL Magnesium (1.6-2.3) mg/dL AST (17-59) U/L Total Protein (6.3-8.2) g/dL Albumin (3.5-5.0) g/dL Arterial Blood Potassium 4.6 H 4.8 H (3.4-4.5) mmol/L Arterial Blood Glucose 164 H 180 H 188 H (75-99) mg/dL Crossmatch 12/02/18 12/02/18 12/02/18 Range/Units 12:52 13:01 13:06 WBC (3.8-10.6) k/uL RBC (4.30-5.90) m/uL Hgb (13.0-17.5) gm/dL Hct (39.0-53.0) % MCV (80.0-100.0) fL Plt Count (150-450) k/uL Neutrophils # (1.3-7.7) k/uL Lymphocytes # (1.0-4.8) k/uL APTT (22.0-30.0) sec ABG pH 7.29 L (7.35-7.45) ABG pCO2 46 H 58 H 46 H (35-45) mmHg ABG pO2 372 H 40 L* 358 H (83-108) mmHg ABG HCO3 26 H 28 H 26 H (21-25) mmol/L ABG Total CO2 27 H 29 H 27 H (19-24) mmol/L ABG O2 Saturation 100.0 H 69.6 L 100.0 H (94-97) % ABG Hematocrit 27 L 26 L 26 L (34.0-46.0) % ABG Potassium 4.7 H 4.8 H 4.7 H (3.4-4.5) mmol/L ABG Ionized Calcium 4.3 L 4.3 L 4.3 L (4.5-5.3) mg/dL ABG Glucose 210 H 196 H 201 H (75-99) mg/dL ABG Lactic Acid 2.7 H* 2.7 H* 2.8 H* (0.5-1.6) mmol/L Hemoglobin 8.8 L 8.4 L 8.6 L (13.0-17.5) gm/dL Potassium (3.5-5.1) mmol/L Chloride (98-107) mmol/L Creatinine (0.66-1.25) mg/dL Glucose (74-99) mg/dL POC Glucose (mg/dL) (75-99) mg/dL Calcium (8.4-10.2) mg/dL Magnesium (1.6-2.3) mg/dL AST (17-59) U/L Total Protein (6.3-8.2) g/dL Albumin (3.5-5.0) g/dL Arterial Blood Potassium 4.7 H 4.8 H 4.7 H (3.4-4.5) mmol/L Arterial Blood Glucose 210 H 196 H 201 H (75-99) mg/dL Crossmatch 12/02/18 12/02/18 12/02/18 Range/Units 13:57 15:01 15:27 WBC (3.8-10.6) k/uL RBC (4.30-5.90) m/uL Hgb (13.0-17.5) gm/dL Hct (39.0-53.0) % MCV (80.0-100.0) fL Plt Count (150-450) k/uL Neutrophils # (1.3-7.7) k/uL Lymphocytes # (1.0-4.8) k/uL APTT (22.0-30.0) sec ABG pH (7.35-7.45) ABG pCO2 (35-45) mmHg ABG pO2 >420 H (83-108) mmHg ABG HCO3 26 H (21-25) mmol/L ABG Total CO2 27 H (19-24) mmol/L ABG O2 Saturation 100.0 H (94-97) % ABG Hematocrit 29 L (34.0-46.0) % ABG Potassium (3.4-4.5) mmol/L ABG Ionized Calcium 4.3 L (4.5-5.3) mg/dL ABG Glucose 176 H (75-99) mg/dL ABG Lactic Acid 2.9 H* (0.5-1.6) mmol/L Hemoglobin 9.4 L (13.0-17.5) gm/dL Potassium (3.5-5.1) mmol/L Chloride (98-107) mmol/L Creatinine (0.66-1.25) mg/dL Glucose (74-99) mg/dL POC Glucose (mg/dL) 139 H 131 H (75-99) mg/dL Calcium (8.4-10.2) mg/dL Magnesium (1.6-2.3) mg/dL AST (17-59) U/L Total Protein (6.3-8.2) g/dL Albumin (3.5-5.0) g/dL Arterial Blood Potassium (3.4-4.5) mmol/L Arterial Blood Glucose 176 H (75-99) mg/dL Crossmatch 12/02/18 12/02/18 12/02/18 Range/Units 16:07 16:08 16:40 WBC 15.2 H (3.8-10.6) k/uL RBC 3.42 L (4.30-5.90) m/uL Hgb 11.6 L (13.0-17.5) gm/dL Hct 34.0 L (39.0-53.0) % MCV (80.0-100.0) fL Plt Count (150-450) k/uL Neutrophils # 10.9 H (1.3-7.7) k/uL Lymphocytes # (1.0-4.8) k/uL APTT (22.0-30.0) sec ABG pH 7.15 L* (7.35-7.45) ABG pCO2 70 H (35-45) mmHg ABG pO2 269 H (83-108) mmHg ABG HCO3 (21-25) mmol/L ABG Total CO2 27 H (19-24) mmol/L ABG O2 Saturation 99.4 H (94-97) % ABG Hematocrit (34.0-46.0) % ABG Potassium (3.4-4.5) mmol/L ABG Ionized Calcium (4.5-5.3) mg/dL ABG Glucose (75-99) mg/dL ABG Lactic Acid (0.5-1.6) mmol/L Hemoglobin (13.0-17.5) gm/dL Potassium (3.5-5.1) mmol/L Chloride (98-107) mmol/L Creatinine (0.66-1.25) mg/dL Glucose (74-99) mg/dL POC Glucose (mg/dL) 133 H (75-99) mg/dL Calcium (8.4-10.2) mg/dL Magnesium (1.6-2.3) mg/dL AST (17-59) U/L Total Protein (6.3-8.2) g/dL Albumin (3.5-5.0) g/dL Arterial Blood Potassium (3.4-4.5) mmol/L Arterial Blood Glucose (75-99) mg/dL Crossmatch 12/02/18 12/02/18 12/02/18 Range/Units 16:40 16:40 16:41 WBC (3.8-10.6) k/uL RBC (4.30-5.90) m/uL Hgb (13.0-17.5) gm/dL Hct (39.0-53.0) % MCV (80.0-100.0) fL Plt Count (150-450) k/uL Neutrophils # (1.3-7.7) k/uL Lymphocytes # (1.0-4.8) k/uL APTT 35.9 H (22.0-30.0) sec ABG pH (7.35-7.45) ABG pCO2 (35-45) mmHg ABG pO2 (83-108) mmHg ABG HCO3 (21-25) mmol/L ABG Total CO2 (19-24) mmol/L ABG O2 Saturation (94-97) % ABG Hematocrit (34.0-46.0) % ABG Potassium (3.4-4.5) mmol/L ABG Ionized Calcium (4.5-5.3) mg/dL ABG Glucose (75-99) mg/dL ABG Lactic Acid (0.5-1.6) mmol/L Hemoglobin (13.0-17.5) gm/dL Potassium 5.5 H (3.5-5.1) mmol/L Chloride 113 H (98-107) mmol/L Creatinine 1.35 H (0.66-1.25) mg/dL Glucose 136 H (74-99) mg/dL POC Glucose (mg/dL) 142 H (75-99) mg/dL Calcium 7.9 L (8.4-10.2) mg/dL Magnesium 2.6 H (1.6-2.3) mg/dL AST 98 H (17-59) U/L Total Protein 4.9 L (6.3-8.2) g/dL Albumin 3.0 L (3.5-5.0) g/dL Arterial Blood Potassium (3.4-4.5) mmol/L Arterial Blood Glucose (75-99) mg/dL Crossmatch 12/02/18 12/02/18 12/02/18 Range/Units 17:20 18:00 18:01 WBC (3.8-10.6) k/uL RBC (4.30-5.90) m/uL Hgb (13.0-17.5) gm/dL Hct (39.0-53.0) % MCV (80.0-100.0) fL Plt Count (150-450) k/uL Neutrophils # (1.3-7.7) k/uL Lymphocytes # (1.0-4.8) k/uL APTT (22.0-30.0) sec ABG pH (7.35-7.45) ABG pCO2 (35-45) mmHg ABG pO2 146 H (83-108) mmHg ABG HCO3 (21-25) mmol/L ABG Total CO2 26 H (19-24) mmol/L ABG O2 Saturation 99.7 H (94-97) % ABG Hematocrit (34.0-46.0) % ABG Potassium (3.4-4.5) mmol/L ABG Ionized Calcium (4.5-5.3) mg/dL ABG Glucose (75-99) mg/dL ABG Lactic Acid (0.5-1.6) mmol/L Hemoglobin (13.0-17.5) gm/dL Potassium (3.5-5.1) mmol/L Chloride (98-107) mmol/L Creatinine (0.66-1.25) mg/dL Glucose (74-99) mg/dL POC Glucose (mg/dL) 111 H 138 H (75-99) mg/dL Calcium (8.4-10.2) mg/dL Magnesium (1.6-2.3) mg/dL AST (17-59) U/L Total Protein (6.3-8.2) g/dL Albumin (3.5-5.0) g/dL Arterial Blood Potassium (3.4-4.5) mmol/L Arterial Blood Glucose (75-99) mg/dL Crossmatch 12/02/18 12/02/18 12/02/18 Range/Units 18:57 18:58 20:47 WBC (3.8-10.6) k/uL RBC 2.73 L (4.30-5.90) m/uL Hgb 9.5 L D (13.0-17.5) gm/dL Hct 26.6 L (39.0-53.0) % MCV (80.0-100.0) fL Plt Count 130 L (150-450) k/uL Neutrophils # (1.3-7.7) k/uL Lymphocytes # (1.0-4.8) k/uL APTT (22.0-30.0) sec ABG pH 7.32 L (7.35-7.45) ABG pCO2 50 H (35-45) mmHg ABG pO2 142 H (83-108) mmHg ABG HCO3 26 H (21-25) mmol/L ABG Total CO2 28 H (19-24) mmol/L ABG O2 Saturation 99.6 H (94-97) % ABG Hematocrit (34.0-46.0) % ABG Potassium (3.4-4.5) mmol/L ABG Ionized Calcium (4.5-5.3) mg/dL ABG Glucose (75-99) mg/dL ABG Lactic Acid (0.5-1.6) mmol/L Hemoglobin (13.0-17.5) gm/dL Potassium (3.5-5.1) mmol/L Chloride (98-107) mmol/L Creatinine (0.66-1.25) mg/dL Glucose (74-99) mg/dL POC Glucose (mg/dL) 162 H (75-99) mg/dL Calcium (8.4-10.2) mg/dL Magnesium (1.6-2.3) mg/dL AST (17-59) U/L Total Protein (6.3-8.2) g/dL Albumin (3.5-5.0) g/dL Arterial Blood Potassium (3.4-4.5) mmol/L Arterial Blood Glucose (75-99) mg/dL Crossmatch 12/02/18 12/02/18 12/02/18 Range/Units 20:50 20:50 20:50 WBC (3.8-10.6) k/uL RBC 2.76 L (4.30-5.90) m/uL Hgb 9.4 L (13.0-17.5) gm/dL Hct 27.5 L (39.0-53.0) % MCV (80.0-100.0) fL Plt Count 117 L (150-450) k/uL Neutrophils # (1.3-7.7) k/uL Lymphocytes # 0.6 L (1.0-4.8) k/uL APTT (22.0-30.0) sec ABG pH (7.35-7.45) ABG pCO2 (35-45) mmHg ABG pO2 (83-108) mmHg ABG HCO3 (21-25) mmol/L ABG Total CO2 (19-24) mmol/L ABG O2 Saturation (94-97) % ABG Hematocrit (34.0-46.0) % ABG Potassium (3.4-4.5) mmol/L ABG Ionized Calcium (4.5-5.3) mg/dL ABG Glucose (75-99) mg/dL ABG Lactic Acid (0.5-1.6) mmol/L Hemoglobin (13.0-17.5) gm/dL Potassium (3.5-5.1) mmol/L Chloride 112 H (98-107) mmol/L Creatinine 1.39 H (0.66-1.25) mg/dL Glucose 142 H (74-99) mg/dL POC Glucose (mg/dL) 154 H (75-99) mg/dL Calcium 7.8 L (8.4-10.2) mg/dL Magnesium 2.4 H (1.6-2.3) mg/dL AST 87 H (17-59) U/L Total Protein 4.7 L (6.3-8.2) g/dL Albumin 3.0 L (3.5-5.0) g/dL Arterial Blood Potassium (3.4-4.5) mmol/L Arterial Blood Glucose (75-99) mg/dL Crossmatch 12/02/18 12/03/18 12/03/18 Range/Units 22:57 00:05 00:58 WBC (3.8-10.6) k/uL RBC (4.30-5.90) m/uL Hgb (13.0-17.5) gm/dL Hct (39.0-53.0) % MCV (80.0-100.0) fL Plt Count (150-450) k/uL Neutrophils # (1.3-7.7) k/uL Lymphocytes # (1.0-4.8) k/uL APTT (22.0-30.0) sec ABG pH (7.35-7.45) ABG pCO2 (35-45) mmHg ABG pO2 (83-108) mmHg ABG HCO3 (21-25) mmol/L ABG Total CO2 (19-24) mmol/L ABG O2 Saturation (94-97) % ABG Hematocrit (34.0-46.0) % ABG Potassium (3.4-4.5) mmol/L ABG Ionized Calcium (4.5-5.3) mg/dL ABG Glucose (75-99) mg/dL ABG Lactic Acid (0.5-1.6) mmol/L Hemoglobin (13.0-17.5) gm/dL Potassium (3.5-5.1) mmol/L Chloride (98-107) mmol/L Creatinine (0.66-1.25) mg/dL Glucose (74-99) mg/dL POC Glucose (mg/dL) 143 H 139 H 128 H (75-99) mg/dL Calcium (8.4-10.2) mg/dL Magnesium (1.6-2.3) mg/dL AST (17-59) U/L Total Protein (6.3-8.2) g/dL Albumin (3.5-5.0) g/dL Arterial Blood Potassium (3.4-4.5) mmol/L Arterial Blood Glucose (75-99) mg/dL Crossmatch 12/03/18 12/03/18 12/03/18 Range/Units 02:05 03:10 04:07 WBC (3.8-10.6) k/uL RBC (4.30-5.90) m/uL Hgb (13.0-17.5) gm/dL Hct (39.0-53.0) % MCV (80.0-100.0) fL Plt Count (150-450) k/uL Neutrophils # (1.3-7.7) k/uL Lymphocytes # (1.0-4.8) k/uL APTT (22.0-30.0) sec ABG pH (7.35-7.45) ABG pCO2 (35-45) mmHg ABG pO2 (83-108) mmHg ABG HCO3 (21-25) mmol/L ABG Total CO2 (19-24) mmol/L ABG O2 Saturation (94-97) % ABG Hematocrit (34.0-46.0) % ABG Potassium (3.4-4.5) mmol/L ABG Ionized Calcium (4.5-5.3) mg/dL ABG Glucose (75-99) mg/dL ABG Lactic Acid (0.5-1.6) mmol/L Hemoglobin (13.0-17.5) gm/dL Potassium (3.5-5.1) mmol/L Chloride (98-107) mmol/L Creatinine (0.66-1.25) mg/dL Glucose (74-99) mg/dL POC Glucose (mg/dL) 129 H 133 H 144 H (75-99) mg/dL Calcium (8.4-10.2) mg/dL Magnesium (1.6-2.3) mg/dL AST (17-59) U/L Total Protein (6.3-8.2) g/dL Albumin (3.5-5.0) g/dL Arterial Blood Potassium (3.4-4.5) mmol/L Arterial Blood Glucose (75-99) mg/dL Crossmatch 12/03/18 12/03/18 12/03/18 Range/Units 04:38 04:38 04:57 WBC (3.8-10.6) k/uL RBC 3.17 L (4.30-5.90) m/uL Hgb 10.7 L (13.0-17.5) gm/dL Hct 32.9 L (39.0-53.0) % MCV 103.8 H (80.0-100.0) fL Plt Count 139 L (150-450) k/uL Neutrophils # (1.3-7.7) k/uL Lymphocytes # (1.0-4.8) k/uL APTT (22.0-30.0) sec ABG pH (7.35-7.45) ABG pCO2 (35-45) mmHg ABG pO2 (83-108) mmHg ABG HCO3 (21-25) mmol/L ABG Total CO2 (19-24) mmol/L ABG O2 Saturation (94-97) % ABG Hematocrit (34.0-46.0) % ABG Potassium (3.4-4.5) mmol/L ABG Ionized Calcium (4.5-5.3) mg/dL ABG Glucose (75-99) mg/dL ABG Lactic Acid (0.5-1.6) mmol/L Hemoglobin (13.0-17.5) gm/dL Potassium (3.5-5.1) mmol/L Chloride 112 H 113 H (98-107) mmol/L Creatinine 1.32 H (0.66-1.25) mg/dL Glucose 126 H (74-99) mg/dL POC Glucose (mg/dL) (75-99) mg/dL Calcium 7.8 L 8.2 L (8.4-10.2) mg/dL Magnesium 2.7 H 2.4 H (1.6-2.3) mg/dL AST 82 H 105 H (17-59) U/L Total Protein 4.6 L 4.5 L (6.3-8.2) g/dL Albumin 2.8 L 2.7 L (3.5-5.0) g/dL Arterial Blood Potassium (3.4-4.5) mmol/L Arterial Blood Glucose (75-99) mg/dL Crossmatch 12/03/18 12/03/18 12/03/18 Range/Units 04:57 05:00 07:05 WBC (3.8-10.6) k/uL RBC 2.57 L (4.30-5.90) m/uL Hgb 8.7 L D (13.0-17.5) gm/dL Hct 25.9 L (39.0-53.0) % MCV 100.7 H (80.0-100.0) fL Plt Count 138 L (150-450) k/uL Neutrophils # (1.3-7.7) k/uL Lymphocytes # (1.0-4.8) k/uL APTT (22.0-30.0) sec ABG pH (7.35-7.45) ABG pCO2 (35-45) mmHg ABG pO2 (83-108) mmHg ABG HCO3 (21-25) mmol/L ABG Total CO2 (19-24) mmol/L ABG O2 Saturation (94-97) % ABG Hematocrit (34.0-46.0) % ABG Potassium (3.4-4.5) mmol/L ABG Ionized Calcium (4.5-5.3) mg/dL ABG Glucose (75-99) mg/dL ABG Lactic Acid (0.5-1.6) mmol/L Hemoglobin (13.0-17.5) gm/dL Potassium (3.5-5.1) mmol/L Chloride (98-107) mmol/L Creatinine (0.66-1.25) mg/dL Glucose (74-99) mg/dL POC Glucose (mg/dL) 140 H 146 H (75-99) mg/dL Calcium (8.4-10.2) mg/dL Magnesium (1.6-2.3) mg/dL AST (17-59) U/L Total Protein (6.3-8.2) g/dL Albumin (3.5-5.0) g/dL Arterial Blood Potassium (3.4-4.5) mmol/L Arterial Blood Glucose (75-99) mg/dL Crossmatch 12/03/18 Range/Units 08:11 WBC (3.8-10.6) k/uL RBC (4.30-5.90) m/uL Hgb (13.0-17.5) gm/dL Hct (39.0-53.0) % MCV (80.0-100.0) fL Plt Count (150-450) k/uL Neutrophils # (1.3-7.7) k/uL Lymphocytes # (1.0-4.8) k/uL APTT (22.0-30.0) sec ABG pH (7.35-7.45) ABG pCO2 (35-45) mmHg ABG pO2 (83-108) mmHg ABG HCO3 (21-25) mmol/L ABG Total CO2 (19-24) mmol/L ABG O2 Saturation (94-97) % ABG Hematocrit (34.0-46.0) % ABG Potassium (3.4-4.5) mmol/L ABG Ionized Calcium (4.5-5.3) mg/dL ABG Glucose (75-99) mg/dL ABG Lactic Acid (0.5-1.6) mmol/L Hemoglobin (13.0-17.5) gm/dL Potassium (3.5-5.1) mmol/L Chloride (98-107) mmol/L Creatinine (0.66-1.25) mg/dL Glucose (74-99) mg/dL POC Glucose (mg/dL) 144 H (75-99) mg/dL Calcium (8.4-10.2) mg/dL Magnesium (1.6-2.3) mg/dL AST (17-59) U/L Total Protein (6.3-8.2) g/dL Albumin (3.5-5.0) g/dL Arterial Blood Potassium (3.4-4.5) mmol/L Arterial Blood Glucose (75-99) mg/dL Crossmatch Assessment and Plan Plan: Assessment: #1. Severe symptomatic aortic valve stenosis and coronary artery disease, status post aortic valve replacement and one-vessel bypass, SVG to the RCA,post op day 1 #2. Postoperative ventilator management, he was successfully extubated last night on 12/02/2018 at 2130, tolerated extubation quite well, on 3 L per nasal cannula #3. Postop blood loss anemia, and expected outcome of bypass surgery, and aortic valve replacement surgery #4. Diabetes mellitus with diabetic neuropathy #5. Hypertension, hyperlipidemia #6. Morbid obesity #7. Osteoarthritis #8. Release episodes of pneumonia #9. Postoperative infections owing left total hip arthroplasty, and right total hip arthroplasty,requiring IV antibiotic infusions maintenance dose of oral doxycycline Plan: Continue encouraging deep breathing and coughing, incentive spirometry use, ambulation. Today's chest x-ray has been reviewed with Dr. Granda, shows left basilar atelectasis. Hemodynamically patient is stable, maintain pain control. Vital signs are stable. We will continue to follow, anticipate patient to remain in the ICU today. I performed a history & physical examination of the patient and discussed their management with my nurse practitioner, Niurka Read. I reviewed the nurse practitioner's note and agree with the documented findings and plan of care. Lung sounds are positive for diffuse wheezes throughout the lung stein. The findings and the impression was discussed with the patient. I attest to the documentation by the nurse practitioner. Time with Patient: Greater than 28
[2018-12-03] MEDS: CLEVIDIPINE BUTYRATE 25 MG in EMPTY BAG 1 BAG IV SCH (10:01)
--- NOTE | 2018-12-03 10:32 | P.PN ---
Subjective Progress Note Date: 12/03/18 Principal diagnosis: Severe aortic valve stenosis, coronary artery disease. Previous medical history of hypertension, hyperlipidemia, family history of coronary artery disease, diabetes mellitus with neuropathy with preoperative hemoglobin A1c 6.3% , previous tobacco dependence, moderate COPD with preoperative FEV1 56% of predicted, morbid obesity, rare EtOH use, depression, shingles, basal cell skin carcinoma diagnosed in 2016 and 2017, osteoarthritis, both right and left hip replacements with postoperative infections and subsequent IV antibiotics per Dr. Ricci. POD #1 aortic valve replacement using 23 mm Pelaez magna ease bioprosthetic valve. Coronary artery bypass grafting 1 vessel, as reverse saphenous vein graft to the right coronary artery. Endoscopic vein harvest, right greater saphenous vein. Epi-aortic ultrasound. Intraoperative transesophageal echocardiogram. Closure of the sternum using [place] cable system. Postoperative acute blood loss anemia, an expected outcome of surgery secondary to cardiopulmonary bypass pump and hemodilution. The patient's currently sitting up in a recliner in no acute distress. Does complain of postsurgical pain, denies shortness of breath. He was successfully extubated last night at 21:28. Hemodynamically stable on no inotropes or pressors. He was a bit hypertensive overnight and was started on IV Cleviprex which is currently being weaned off. No new complaints. Objective - Vital Signs Vital signs: Vital Signs Temp 100.4 F H 12/03/18 07:00 Pulse 74 12/03/18 09:00 Resp 42 H 12/03/18 09:00 BP 82/38 12/03/18 09:00 Pulse Ox 94 L 12/03/18 09:00 Intake & Output 12/02/18 12/03/18 12/03/18 18:59 06:59 18:59 Intake Total 2349.482 7091.719 212.834 Output Total 2946 1041 342 Balance -1864.092 388.719 -129.166 Weight 127.119 kg 134.9 kg Intake: IV 1063.0 1060.0 194.0 ACETAMINOPHEN IV (For NPO 100 200 ) 1,000 mg In Empty Bag 1 bag @ 400 mls/hr IVPB Q6HR GA[facility]O Rx#:[id number] Albumin Human 5% 250 ml 500 In Empty Bag 1 bag @ 250 mls/hr IVPB Q1HR PRN Rx#: [id number] Co/CI 90 110 20 Lactated Ringers 1,000 ml 200 590 150 @ 20 mls/hr IV .Q24H GA[facility]ANO Rx#:[id number] Nitroglycerin-D5w Pmx 50 6.0 18.0 3.0 mg In Dextrose/Water 1 250ml.bag @ Per Protocol IV ONCE ONE Rx#:[id number] PRESSURE BAGS 36 42 21 ceFAZolin 3 gm In Sodium 100 100 Chloride 0.9% 100 ml @ 100 mls/hr IVPB Q8HR GAETANO Rx#:[id number] Intake, IV Titration 18.908 84.719 18.834 Amount Clevidipine Butyrate 25 31.166 18.834 mg In Empty Bag 1 bag @ 1 MG/HR 2 mls/hr IV .Q24H GA[facility]ANO Rx#:[id number] Insulin Regular 100 unit 4.613 53.553 In Sodium Chloride 0.9% 100 ml @ Per Protocol IV .Q0M GA[facility]O Rx#:[id number] Propofol 1,000 mg In 14.295 Empty Bag 1 bag @ Titrate IV .Q0M GAETANO Rx#: [id number] Oral 240 Other 45 Output: Chest Tube Drainage 201 288 182 Mediastinal x 2 181 167 90 RIGHT PLEURAL 20 121 92 Gastric Drainage 150 Urine 745 483 160 Emesis 120 Estimated Blood Loss 1999 Other: Voiding Method Indwelling Catheter Indwelling Catheter Indwelling Catheter ABP, PAP, CO, CI - Last Documented Arterial Blood Pressure 133/41 Pulmonary Artery Pressure 19/13 Cardiac Output 5.9 Cardiac Index 2.4 - Constitutional General appearance: Present: cooperative, no acute distress, obese - Respiratory Details: Lungs sounds diminished bilaterally. Respirations even, nonlabored. Currently on 3 L nasal cannula with oxygen saturation 95%. Able to achieve 750 mL on his incentive spirometry. Strong cough. Mediastinal chest tube to continuous wall suction, 100 mL serosanguineous drainage overnight, 450 mL since surgery. Right pleural chest tube to continuous wall suction, 120 mL serosanguineous drainage overnight, 210 mL since surgery. No air leaks present. - Cardiovascular Details: S1, S2 present. Regular rate and rhythm, sinus rhythm on telemetry. A/V epicardial pacemaker wires present, connected to generator, DDD mode with backup rate 60 bpm, subsequently turned off. Sternum stable. Palpable peripheral pulses bilaterally. No edema present. No calf pain or tenderness noted. Right internal jugular [place], left radial arterial line present. Last CO/CI 6.2/2.6 on no inotropes or pressors. Heart hugger in place with patient demonstrating appropriate use with encouragement. Antiembolism stockings, SCDs present. - Gastrointestinal Gastrointestinal Comment(s): Abdomen soft, nontender, nondistended, obese. Hypoactive bowel sounds present 4 quadrants. Tolerating clear liquids. Positive belching, negative flatus. - Genitourinary Genitourinary Comment(s): Leonard present draining clear, yellow urine. Output 25-45 mL per hour overnight , 277 mL in the last 8 hours. - Integumentary Integumentary Comment(s): Skin is warm and dry with evidence of good perfusion. Anterior chest incision well approximated and covered with dry intact dressing. Right lower extremity EVH site well approximated. - Neurologic Neurologic: Present: CNII-XII intact - Musculoskeletal Musculoskeletal: Present: strength equal bilaterally - Psychiatric Psychiatric: Present: A&O x's 3, appropriate affect, intact judgment & insight - Allied health notes Allied health notes reviewed: nursing - Labs CBC & Chem 7: 12/03/18 04:57 12/03/18 04:57 Labs: Abnormal Lab Results - Last 24 Hours (Table) 12/01/18 12/02/18 12/02/18 Range/Units 12:52 08:36 09:23 WBC (3.8-10.6) k/uL RBC (4.30-5.90) m/uL Hgb (13.0-17.5) gm/dL Hct (39.0-53.0) % MCV (80.0-100.0) fL Plt Count (150-450) k/uL Neutrophils # (1.3-7.7) k/uL Lymphocytes # (1.0-4.8) k/uL APTT (22.0-30.0) sec ABG pH (7.35-7.45) ABG pCO2 48 H 47 H (35-45) mmHg ABG pO2 >420 H 183 H (83-108) mmHg ABG HCO3 28 H 27 H (21-25) mmol/L ABG Total CO2 29 H 29 H (19-24) mmol/L ABG O2 Saturation 100.0 H 100.0 H (94-97) % ABG Hematocrit (34.0-46.0) % ABG Potassium (3.4-4.5) mmol/L ABG Ionized Calcium (4.5-5.3) mg/dL ABG Glucose 211 H 165 H (75-99) mg/dL ABG Lactic Acid 1.8 H 2.1 H (0.5-1.6) mmol/L Hemoglobin 12.3 L (13.0-17.5) gm/dL Potassium (3.5-5.1) mmol/L Chloride (98-107) mmol/L Creatinine (0.66-1.25) mg/dL Glucose (74-99) mg/dL POC Glucose (mg/dL) (75-99) mg/dL Calcium (8.4-10.2) mg/dL Magnesium (1.6-2.3) mg/dL AST (17-59) U/L Total Protein (6.3-8.2) g/dL Albumin (3.5-5.0) g/dL Arterial Blood Potassium (3.4-4.5) mmol/L Arterial Blood Glucose 211 H 165 H (75-99) mg/dL Crossmatch See Detail 12/02/18 12/02/18 12/02/18 Range/Units 09:25 10:12 10:40 WBC (3.8-10.6) k/uL RBC (4.30-5.90) m/uL Hgb (13.0-17.5) gm/dL Hct (39.0-53.0) % MCV (80.0-100.0) fL Plt Count (150-450) k/uL Neutrophils # (1.3-7.7) k/uL Lymphocytes # (1.0-4.8) k/uL APTT (22.0-30.0) sec ABG pH (7.35-7.45) ABG pCO2 46 H 48 H (35-45) mmHg ABG pO2 187 H 220 H 310 H (83-108) mmHg ABG HCO3 27 H 27 H 27 H (21-25) mmol/L ABG Total CO2 28 H 29 H 28 H (19-24) mmol/L ABG O2 Saturation 100.0 H 100.0 H 100.0 H (94-97) % ABG Hematocrit 28 L 27 L (34.0-46.0) % ABG Potassium 4.7 H (3.4-4.5) mmol/L ABG Ionized Calcium 4.4 L 4.4 L (4.5-5.3) mg/dL ABG Glucose 164 H 220 H 179 H (75-99) mg/dL ABG Lactic Acid 2.1 H 2.3 H* 2.5 H* (0.5-1.6) mmol/L Hemoglobin 12.4 L 9.2 L 8.9 L (13.0-17.5) gm/dL Potassium (3.5-5.1) mmol/L Chloride (98-107) mmol/L Creatinine (0.66-1.25) mg/dL Glucose (74-99) mg/dL POC Glucose (mg/dL) (75-99) mg/dL Calcium (8.4-10.2) mg/dL Magnesium (1.6-2.3) mg/dL AST (17-59) U/L Total Protein (6.3-8.2) g/dL Albumin (3.5-5.0) g/dL Arterial Blood Potassium 4.7 H (3.4-4.5) mmol/L Arterial Blood Glucose 164 H 220 H 179 H (75-99) mg/dL Crossmatch 12/02/18 12/02/18 12/02/18 Range/Units 11:06 11:38 12:21 WBC (3.8-10.6) k/uL RBC (4.30-5.90) m/uL Hgb (13.0-17.5) gm/dL Hct (39.0-53.0) % MCV (80.0-100.0) fL Plt Count (150-450) k/uL Neutrophils # (1.3-7.7) k/uL Lymphocytes # (1.0-4.8) k/uL APTT (22.0-30.0) sec ABG pH (7.35-7.45) ABG pCO2 46 H 48 H (35-45) mmHg ABG pO2 306 H 300 H 334 H (83-108) mmHg ABG HCO3 26 H 27 H 27 H (21-25) mmol/L ABG Total CO2 27 H 28 H 28 H (19-24) mmol/L ABG O2 Saturation 100.0 H 100.0 H 100.0 H (94-97) % ABG Hematocrit 29 L 27 L 28 L (34.0-46.0) % ABG Potassium 4.6 H 4.8 H (3.4-4.5) mmol/L ABG Ionized Calcium 4.4 L 4.3 L 4.3 L (4.5-5.3) mg/dL ABG Glucose 164 H 180 H 188 H (75-99) mg/dL ABG Lactic Acid 2.7 H* 2.7 H* 2.7 H* (0.5-1.6) mmol/L Hemoglobin 9.3 L 8.9 L 9.0 L (13.0-17.5) gm/dL Potassium (3.5-5.1) mmol/L Chloride (98-107) mmol/L Creatinine (0.66-1.25) mg/dL Glucose (74-99) mg/dL POC Glucose (mg/dL) (75-99) mg/dL Calcium (8.4-10.2) mg/dL Magnesium (1.6-2.3) mg/dL AST (17-59) U/L Total Protein (6.3-8.2) g/dL Albumin (3.5-5.0) g/dL Arterial Blood Potassium 4.6 H 4.8 H (3.4-4.5) mmol/L Arterial Blood Glucose 164 H 180 H 188 H (75-99) mg/dL Crossmatch 12/02/18 12/02/18 12/02/18 Range/Units 12:52 13:01 13:06 WBC (3.8-10.6) k/uL RBC (4.30-5.90) m/uL Hgb (13.0-17.5) gm/dL Hct (39.0-53.0) % MCV (80.0-100.0) fL Plt Count (150-450) k/uL Neutrophils # (1.3-7.7) k/uL Lymphocytes # (1.0-4.8) k/uL APTT (22.0-30.0) sec ABG pH 7.29 L (7.35-7.45) ABG pCO2 46 H 58 H 46 H (35-45) mmHg ABG pO2 372 H 40 L* 358 H (83-108) mmHg ABG HCO3 26 H 28 H 26 H (21-25) mmol/L ABG Total CO2 27 H 29 H 27 H (19-24) mmol/L ABG O2 Saturation 100.0 H 69.6 L 100.0 H (94-97) % ABG Hematocrit 27 L 26 L 26 L (34.0-46.0) % ABG Potassium 4.7 H 4.8 H 4.7 H (3.4-4.5) mmol/L ABG Ionized Calcium 4.3 L 4.3 L 4.3 L (4.5-5.3) mg/dL ABG Glucose 210 H 196 H 201 H (75-99) mg/dL ABG Lactic Acid 2.7 H* 2.7 H* 2.8 H* (0.5-1.6) mmol/L Hemoglobin 8.8 L 8.4 L 8.6 L (13.0-17.5) gm/dL Potassium (3.5-5.1) mmol/L Chloride (98-107) mmol/L Creatinine (0.66-1.25) mg/dL Glucose (74-99) mg/dL POC Glucose (mg/dL) (75-99) mg/dL Calcium (8.4-10.2) mg/dL Magnesium (1.6-2.3) mg/dL AST (17-59) U/L Total Protein (6.3-8.2) g/dL Albumin (3.5-5.0) g/dL Arterial Blood Potassium 4.7 H 4.8 H 4.7 H (3.4-4.5) mmol/L Arterial Blood Glucose 210 H 196 H 201 H (75-99) mg/dL Crossmatch 12/02/18 12/02/18 12/02/18 Range/Units 13:57 15:01 15:27 WBC (3.8-10.6) k/uL RBC (4.30-5.90) m/uL Hgb (13.0-17.5) gm/dL Hct (39.0-53.0) % MCV (80.0-100.0) fL Plt Count (150-450) k/uL Neutrophils # (1.3-7.7) k/uL Lymphocytes # (1.0-4.8) k/uL APTT (22.0-30.0) sec ABG pH (7.35-7.45) ABG pCO2 (35-45) mmHg ABG pO2 >420 H (83-108) mmHg ABG HCO3 26 H (21-25) mmol/L ABG Total CO2 27 H (19-24) mmol/L ABG O2 Saturation 100.0 H (94-97) % ABG Hematocrit 29 L (34.0-46.0) % ABG Potassium (3.4-4.5) mmol/L ABG Ionized Calcium 4.3 L (4.5-5.3) mg/dL ABG Glucose 176 H (75-99) mg/dL ABG Lactic Acid 2.9 H* (0.5-1.6) mmol/L Hemoglobin 9.4 L (13.0-17.5) gm/dL Potassium (3.5-5.1) mmol/L Chloride (98-107) mmol/L Creatinine (0.66-1.25) mg/dL Glucose (74-99) mg/dL POC Glucose (mg/dL) 139 H 131 H (75-99) mg/dL Calcium (8.4-10.2) mg/dL Magnesium (1.6-2.3) mg/dL AST (17-59) U/L Total Protein (6.3-8.2) g/dL Albumin (3.5-5.0) g/dL Arterial Blood Potassium (3.4-4.5) mmol/L Arterial Blood Glucose 176 H (75-99) mg/dL Crossmatch 12/02/18 12/02/18 12/02/18 Range/Units 16:07 16:08 16:40 WBC 15.2 H (3.8-10.6) k/uL RBC 3.42 L (4.30-5.90) m/uL Hgb 11.6 L (13.0-17.5) gm/dL Hct 34.0 L (39.0-53.0) % MCV (80.0-100.0) fL Plt Count (150-450) k/uL Neutrophils # 10.9 H (1.3-7.7) k/uL Lymphocytes # (1.0-4.8) k/uL APTT (22.0-30.0) sec ABG pH 7.15 L* (7.35-7.45) ABG pCO2 70 H (35-45) mmHg ABG pO2 269 H (83-108) mmHg ABG HCO3 (21-25) mmol/L ABG Total CO2 27 H (19-24) mmol/L ABG O2 Saturation 99.4 H (94-97) % ABG Hematocrit (34.0-46.0) % ABG Potassium (3.4-4.5) mmol/L ABG Ionized Calcium (4.5-5.3) mg/dL ABG Glucose (75-99) mg/dL ABG Lactic Acid (0.5-1.6) mmol/L Hemoglobin (13.0-17.5) gm/dL Potassium (3.5-5.1) mmol/L Chloride (98-107) mmol/L Creatinine (0.66-1.25) mg/dL Glucose (74-99) mg/dL POC Glucose (mg/dL) 133 H (75-99) mg/dL Calcium (8.4-10.2) mg/dL Magnesium (1.6-2.3) mg/dL AST (17-59) U/L Total Protein (6.3-8.2) g/dL Albumin (3.5-5.0) g/dL Arterial Blood Potassium (3.4-4.5) mmol/L Arterial Blood Glucose (75-99) mg/dL Crossmatch 12/02/18 12/02/18 12/02/18 Range/Units 16:40 16:40 16:41 WBC (3.8-10.6) k/uL RBC (4.30-5.90) m/uL Hgb (13.0-17.5) gm/dL Hct (39.0-53.0) % MCV (80.0-100.0) fL Plt Count (150-450) k/uL Neutrophils # (1.3-7.7) k/uL Lymphocytes # (1.0-4.8) k/uL APTT 35.9 H (22.0-30.0) sec ABG pH (7.35-7.45) ABG pCO2 (35-45) mmHg ABG pO2 (83-108) mmHg ABG HCO3 (21-25) mmol/L ABG Total CO2 (19-24) mmol/L ABG O2 Saturation (94-97) % ABG Hematocrit (34.0-46.0) % ABG Potassium (3.4-4.5) mmol/L ABG Ionized Calcium (4.5-5.3) mg/dL ABG Glucose (75-99) mg/dL ABG Lactic Acid (0.5-1.6) mmol/L Hemoglobin (13.0-17.5) gm/dL Potassium 5.5 H (3.5-5.1) mmol/L Chloride 113 H (98-107) mmol/L Creatinine 1.35 H (0.66-1.25) mg/dL Glucose 136 H (74-99) mg/dL POC Glucose (mg/dL) 142 H (75-99) mg/dL Calcium 7.9 L (8.4-10.2) mg/dL Magnesium 2.6 H (1.6-2.3) mg/dL AST 98 H (17-59) U/L Total Protein 4.9 L (6.3-8.2) g/dL Albumin 3.0 L (3.5-5.0) g/dL Arterial Blood Potassium (3.4-4.5) mmol/L Arterial Blood Glucose (75-99) mg/dL Crossmatch 12/02/18 12/02/18 12/02/18 Range/Units 17:20 18:00 18:01 WBC (3.8-10.6) k/uL RBC (4.30-5.90) m/uL Hgb (13.0-17.5) gm/dL Hct (39.0-53.0) % MCV (80.0-100.0) fL Plt Count (150-450) k/uL Neutrophils # (1.3-7.7) k/uL Lymphocytes # (1.0-4.8) k/uL APTT (22.0-30.0) sec ABG pH (7.35-7.45) ABG pCO2 (35-45) mmHg ABG pO2 146 H (83-108) mmHg ABG HCO3 (21-25) mmol/L ABG Total CO2 26 H (19-24) mmol/L ABG O2 Saturation 99.7 H (94-97) % ABG Hematocrit (34.0-46.0) % ABG Potassium (3.4-4.5) mmol/L ABG Ionized Calcium (4.5-5.3) mg/dL ABG Glucose (75-99) mg/dL ABG Lactic Acid (0.5-1.6) mmol/L Hemoglobin (13.0-17.5) gm/dL Potassium (3.5-5.1) mmol/L Chloride (98-107) mmol/L Creatinine (0.66-1.25) mg/dL Glucose (74-99) mg/dL POC Glucose (mg/dL) 111 H 138 H (75-99) mg/dL Calcium (8.4-10.2) mg/dL Magnesium (1.6-2.3) mg/dL AST (17-59) U/L Total Protein (6.3-8.2) g/dL Albumin (3.5-5.0) g/dL Arterial Blood Potassium (3.4-4.5) mmol/L Arterial Blood Glucose (75-99) mg/dL Crossmatch 12/02/18 12/02/18 12/02/18 Range/Units 18:57 18:58 20:47 WBC (3.8-10.6) k/uL RBC 2.73 L (4.30-5.90) m/uL Hgb 9.5 L D (13.0-17.5) gm/dL Hct 26.6 L (39.0-53.0) % MCV (80.0-100.0) fL Plt Count 130 L (150-450) k/uL Neutrophils # (1.3-7.7) k/uL Lymphocytes # (1.0-4.8) k/uL APTT (22.0-30.0) sec ABG pH 7.32 L (7.35-7.45) ABG pCO2 50 H (35-45) mmHg ABG pO2 142 H (83-108) mmHg ABG HCO3 26 H (21-25) mmol/L ABG Total CO2 28 H (19-24) mmol/L ABG O2 Saturation 99.6 H (94-97) % ABG Hematocrit (34.0-46.0) % ABG Potassium (3.4-4.5) mmol/L ABG Ionized Calcium (4.5-5.3) mg/dL ABG Glucose (75-99) mg/dL ABG Lactic Acid (0.5-1.6) mmol/L Hemoglobin (13.0-17.5) gm/dL Potassium (3.5-5.1) mmol/L Chloride (98-107) mmol/L Creatinine (0.66-1.25) mg/dL Glucose (74-99) mg/dL POC Glucose (mg/dL) 162 H (75-99) mg/dL Calcium (8.4-10.2) mg/dL Magnesium (1.6-2.3) mg/dL AST (17-59) U/L Total Protein (6.3-8.2) g/dL Albumin (3.5-5.0) g/dL Arterial Blood Potassium (3.4-4.5) mmol/L Arterial Blood Glucose (75-99) mg/dL Crossmatch 12/02/18 12/02/18 12/02/18 Range/Units 20:50 20:50 20:50 WBC (3.8-10.6) k/uL RBC 2.76 L (4.30-5.90) m/uL Hgb 9.4 L (13.0-17.5) gm/dL Hct 27.5 L (39.0-53.0) % MCV (80.0-100.0) fL Plt Count 117 L (150-450) k/uL Neutrophils # (1.3-7.7) k/uL Lymphocytes # 0.6 L (1.0-4.8) k/uL APTT (22.0-30.0) sec ABG pH (7.35-7.45) ABG pCO2 (35-45) mmHg ABG pO2 (83-108) mmHg ABG HCO3 (21-25) mmol/L ABG Total CO2 (19-24) mmol/L ABG O2 Saturation (94-97) % ABG Hematocrit (34.0-46.0) % ABG Potassium (3.4-4.5) mmol/L ABG Ionized Calcium (4.5-5.3) mg/dL ABG Glucose (75-99) mg/dL ABG Lactic Acid (0.5-1.6) mmol/L Hemoglobin (13.0-17.5) gm/dL Potassium (3.5-5.1) mmol/L Chloride 112 H (98-107) mmol/L Creatinine 1.39 H (0.66-1.25) mg/dL Glucose 142 H (74-99) mg/dL POC Glucose (mg/dL) 154 H (75-99) mg/dL Calcium 7.8 L (8.4-10.2) mg/dL Magnesium 2.4 H (1.6-2.3) mg/dL AST 87 H (17-59) U/L Total Protein 4.7 L (6.3-8.2) g/dL Albumin 3.0 L (3.5-5.0) g/dL Arterial Blood Potassium (3.4-4.5) mmol/L Arterial Blood Glucose (75-99) mg/dL Crossmatch 12/02/18 12/03/18 12/03/18 Range/Units 22:57 00:05 00:58 WBC (3.8-10.6) k/uL RBC (4.30-5.90) m/uL Hgb (13.0-17.5) gm/dL Hct (39.0-53.0) % MCV (80.0-100.0) fL Plt Count (150-450) k/uL Neutrophils # (1.3-7.7) k/uL Lymphocytes # (1.0-4.8) k/uL APTT (22.0-30.0) sec ABG pH (7.35-7.45) ABG pCO2 (35-45) mmHg ABG pO2 (83-108) mmHg ABG HCO3 (21-25) mmol/L ABG Total CO2 (19-24) mmol/L ABG O2 Saturation (94-97) % ABG Hematocrit (34.0-46.0) % ABG Potassium (3.4-4.5) mmol/L ABG Ionized Calcium (4.5-5.3) mg/dL ABG Glucose (75-99) mg/dL ABG Lactic Acid (0.5-1.6) mmol/L Hemoglobin (13.0-17.5) gm/dL Potassium (3.5-5.1) mmol/L Chloride (98-107) mmol/L Creatinine (0.66-1.25) mg/dL Glucose (74-99) mg/dL POC Glucose (mg/dL) 143 H 139 H 128 H (75-99) mg/dL Calcium (8.4-10.2) mg/dL Magnesium (1.6-2.3) mg/dL AST (17-59) U/L Total Protein (6.3-8.2) g/dL Albumin (3.5-5.0) g/dL Arterial Blood Potassium (3.4-4.5) mmol/L Arterial Blood Glucose (75-99) mg/dL Crossmatch 12/03/18 12/03/18 12/03/18 Range/Units 02:05 03:10 04:07 WBC (3.8-10.6) k/uL RBC (4.30-5.90) m/uL Hgb (13.0-17.5) gm/dL Hct (39.0-53.0) % MCV (80.0-100.0) fL Plt Count (150-450) k/uL Neutrophils # (1.3-7.7) k/uL Lymphocytes # (1.0-4.8) k/uL APTT (22.0-30.0) sec ABG pH (7.35-7.45) ABG pCO2 (35-45) mmHg ABG pO2 (83-108) mmHg ABG HCO3 (21-25) mmol/L ABG Total CO2 (19-24) mmol/L ABG O2 Saturation (94-97) % ABG Hematocrit (34.0-46.0) % ABG Potassium (3.4-4.5) mmol/L ABG Ionized Calcium (4.5-5.3) mg/dL ABG Glucose (75-99) mg/dL ABG Lactic Acid (0.5-1.6) mmol/L Hemoglobin (13.0-17.5) gm/dL Potassium (3.5-5.1) mmol/L Chloride (98-107) mmol/L Creatinine (0.66-1.25) mg/dL Glucose (74-99) mg/dL POC Glucose (mg/dL) 129 H 133 H 144 H (75-99) mg/dL Calcium (8.4-10.2) mg/dL Magnesium (1.6-2.3) mg/dL AST (17-59) U/L Total Protein (6.3-8.2) g/dL Albumin (3.5-5.0) g/dL Arterial Blood Potassium (3.4-4.5) mmol/L Arterial Blood Glucose (75-99) mg/dL Crossmatch 12/03/18 12/03/18 12/03/18 Range/Units 04:38 04:38 04:57 WBC (3.8-10.6) k/uL RBC 3.17 L (4.30-5.90) m/uL Hgb 10.7 L (13.0-17.5) gm/dL Hct 32.9 L (39.0-53.0) % MCV 103.8 H (80.0-100.0) fL Plt Count 139 L (150-450) k/uL Neutrophils # (1.3-7.7) k/uL Lymphocytes # (1.0-4.8) k/uL APTT (22.0-30.0) sec ABG pH (7.35-7.45) ABG pCO2 (35-45) mmHg ABG pO2 (83-108) mmHg ABG HCO3 (21-25) mmol/L ABG Total CO2 (19-24) mmol/L ABG O2 Saturation (94-97) % ABG Hematocrit (34.0-46.0) % ABG Potassium (3.4-4.5) mmol/L ABG Ionized Calcium (4.5-5.3) mg/dL ABG Glucose (75-99) mg/dL ABG Lactic Acid (0.5-1.6) mmol/L Hemoglobin (13.0-17.5) gm/dL Potassium (3.5-5.1) mmol/L Chloride 112 H 113 H (98-107) mmol/L Creatinine 1.32 H (0.66-1.25) mg/dL Glucose 126 H (74-99) mg/dL POC Glucose (mg/dL) (75-99) mg/dL Calcium 7.8 L 8.2 L (8.4-10.2) mg/dL Magnesium 2.7 H 2.4 H (1.6-2.3) mg/dL AST 82 H 105 H (17-59) U/L Total Protein 4.6 L 4.5 L (6.3-8.2) g/dL Albumin 2.8 L 2.7 L (3.5-5.0) g/dL Arterial Blood Potassium (3.4-4.5) mmol/L Arterial Blood Glucose (75-99) mg/dL Crossmatch 12/03/18 12/03/18 12/03/18 Range/Units 04:57 05:00 07:05 WBC (3.8-10.6) k/uL RBC 2.57 L (4.30-5.90) m/uL Hgb 8.7 L D (13.0-17.5) gm/dL Hct 25.9 L (39.0-53.0) % MCV 100.7 H (80.0-100.0) fL Plt Count 138 L (150-450) k/uL Neutrophils # (1.3-7.7) k/uL Lymphocytes # (1.0-4.8) k/uL APTT (22.0-30.0) sec ABG pH (7.35-7.45) ABG pCO2 (35-45) mmHg ABG pO2 (83-108) mmHg ABG HCO3 (21-25) mmol/L ABG Total CO2 (19-24) mmol/L ABG O2 Saturation (94-97) % ABG Hematocrit (34.0-46.0) % ABG Potassium (3.4-4.5) mmol/L ABG Ionized Calcium (4.5-5.3) mg/dL ABG Glucose (75-99) mg/dL ABG Lactic Acid (0.5-1.6) mmol/L Hemoglobin (13.0-17.5) gm/dL Potassium (3.5-5.1) mmol/L Chloride (98-107) mmol/L Creatinine (0.66-1.25) mg/dL Glucose (74-99) mg/dL POC Glucose (mg/dL) 140 H 146 H (75-99) mg/dL Calcium (8.4-10.2) mg/dL Magnesium (1.6-2.3) mg/dL AST (17-59) U/L Total Protein (6.3-8.2) g/dL Albumin (3.5-5.0) g/dL Arterial Blood Potassium (3.4-4.5) mmol/L Arterial Blood Glucose (75-99) mg/dL Crossmatch 12/03/18 Range/Units 08:11 WBC (3.8-10.6) k/uL RBC (4.30-5.90) m/uL Hgb (13.0-17.5) gm/dL Hct (39.0-53.0) % MCV (80.0-100.0) fL Plt Count (150-450) k/uL Neutrophils # (1.3-7.7) k/uL Lymphocytes # (1.0-4.8) k/uL APTT (22.0-30.0) sec ABG pH (7.35-7.45) ABG pCO2 (35-45) mmHg ABG pO2 (83-108) mmHg ABG HCO3 (21-25) mmol/L ABG Total CO2 (19-24) mmol/L ABG O2 Saturation (94-97) % ABG Hematocrit (34.0-46.0) % ABG Potassium (3.4-4.5) mmol/L ABG Ionized Calcium (4.5-5.3) mg/dL ABG Glucose (75-99) mg/dL ABG Lactic Acid (0.5-1.6) mmol/L Hemoglobin (13.0-17.5) gm/dL Potassium (3.5-5.1) mmol/L Chloride (98-107) mmol/L Creatinine (0.66-1.25) mg/dL Glucose (74-99) mg/dL POC Glucose (mg/dL) 144 H (75-99) mg/dL Calcium (8.4-10.2) mg/dL Magnesium (1.6-2.3) mg/dL AST (17-59) U/L Total Protein (6.3-8.2) g/dL Albumin (3.5-5.0) g/dL Arterial Blood Potassium (3.4-4.5) mmol/L Arterial Blood Glucose (75-99) mg/dL Crossmatch - Imaging and Cardiology Chest x-ray: report reviewed, image reviewed Assessment and Plan (1) Morbid obesity Current Visit: Yes Status: Chronic Code(s): E66.01 - MORBID (SEVERE) OBESITY DUE TO EXCESS CALORIES SNOMED Code(s): 827991716 (2) COPD (chronic obstructive pulmonary disease) Current Visit: Yes Status: Chronic Code(s): J44.9 - CHRONIC OBSTRUCTIVE PULMONARY DISEASE, UNSPECIFIED SNOMED Code(s): 72352359 (3) Family history of coronary artery disease Current Visit: Yes Status: Chronic Code(s): Z82.49 - FAMILY HX OF ISCHEM HEART DIS AND OTH DIS OF THE CIRC SYS SNOMED Code(s): 100064090 (4) Coronary artery disease Current Visit: Yes Status: Chronic Code(s): I25.10 - ATHSCL HEART DISEASE OF [place] CORONARY ARTERY W/O ANG PCTRS SNOMED Code(s): 74040958 (5) Aortic stenosis Current Visit: Yes Status: Chronic Code(s): I35.0 - NONRHEUMATIC AORTIC ( VALVE) STENOSIS SNOMED Code(s): 99333945 (6) Diabetes mellitus Current Visit: Yes Status: Chronic Code(s): E11.9 - TYPE 2 DIABETES MELLITUS WITHOUT COMPLICATIONS SNOMED Code(s): 94183033 (7) Hyperlipidemia Current Visit: Yes Status: Chronic Code(s): E78.5 - HYPERLIPIDEMIA, UNSPECIFIED SNOMED Code(s): 19314773 (8) Hypertension Current Visit: Yes Status: Chronic Code(s): I10 - ESSENTIAL (PRIMARY) HYPERTENSION SNOMED Code(s): 49754412 (9) Osteoarthritis Current Visit: Yes Status: Chronic Code(s): M19.90 - UNSPECIFIED OSTEOARTHRITIS, UNSPECIFIED SITE SNOMED Code(s): 127392056 (10) Tobacco dependence in remission Current Visit: No Status: Resolved Code(s): F17.201 - NICOTINE DEPENDENCE, UNSPECIFIED, IN REMISSION SNOMED Code(s): 505984431 Plan: 1. Continue aspirin, statin, Plavix, beta paul therapy. Will increase beta paul therapy as tolerated. 2. Wean O2 as tolerated. Encourage incentive spirometry is 10 times every hour while awake. Encourage continued smoking cessation. 3. Increase activity. Encourage ambulation. PT/OT/cardiac rehab following. 4. Discontinue [place]. Connect [place] to continuous CVP monitoring. 5. Wean Cleviprex as tolerated. Likely will restart hydralazine. 6. Monitor daily labs and x-rays. Electrolyte replacement per protocol. No transfusion at this time. 7. Pain control with current medication regimen. No Toradol at this time. 8. Bronchodilators per pulmonology. 9. GI prophylaxis with Protonix, DVT prophylaxis with subcu heparin, SCDs. 10. Continue daily doxycycline, patient is on lifetime antibiotics per Dr. Ricci for postoperative infections after hip surgeries. Will consult Dr. Ricci for any further recommendations. 11. Insulin management per primary care service. More recommendations to follow. Time with Patient: Greater than 30
[2018-12-03 10:53] LABS: Glucose,Whole Blood 136 mg/dL (75-99)
--- NOTE | 2018-12-03 11:01 | P.CONS ---
History of Present Illness - Reason for Consult Consult date: 12/02/18 medical management Requesting physician: Alex Irby - Chief Complaint Status post one-vessel bypass surgery and aortic valve placement - History of Present Illness 68-year-old male one of Dr. Graham patient with past medical history of aortic stenosis, hypertension, hyperlipidemia, history of diabetes, severe GERD chronic edema mild depression who has been experiencing exertional dyspnea over the last 6 month without any syncopal episode denies any chest pain. Patient subsequently seen cardiology transesophageal echocardiogram and heart catheter revealed severe calcified aortic valve stenosis with severe restriction also patient had trace mitral regurgitation. 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 Patient was seen pulmonary PFT performed and showed mild obstructive lung disease patient ended up being hospitalized for elective surgery today successfully and ended up having one-vessel coronary artery bypass saphenous to the RCA and aortic valve replacement using bioprosthetic valve. Patient was admitted to the intensive care unit still on mechanical ventilation still on induced coma this point chest tube is in place. Review of Systems CONSTITUTIONAL: Obese on mechanical ventilation mildly sedated. EYES: No icterus sclerae, no conjunctivitis. EARS, NOSE, MOUTH, THROAT, and FACE: Still have ET tube in no lymph node enlargement no thyroid enlargement RESPIRATORY: On mechanical ventilation with no wheezes CARDIOVASCULAR: Post open heart surgery still mildly sedated, GASTROINTESTINAL: No Abd pain, Nausea or vomiting, no Diarrhea or constipation, No GI Bleed, no distention or masses. GENITOURINARY: Negative for Hematuria or UTI, no kidney stones. INTEGUMENT/BREAST: Negative for any muscular injury with mild osteoarthritis.. HEMATOLOGIC/LYMPHATIC: Negative for bleed or purpura. MUSCULOSKELTAL: Negative for Myalgia or arthralgia. NEURLOGICAL: No LOC, Sz or syncope, blurred vision dizziness or abnormality.. BEHAVIORAL/PSYCH: Negative. ENDOCRINE: Negative. Past Medical History Past Medical History: Coronary Artery Disease (CAD), Chest Pain / Angina, Diabetes Mellitus, Hyperlipidemia, Hypertension, Osteoarthritis (OA), Pneumonia Additional Past Medical History / Comment(s): SOB, pain mid back, MURMUR, HX OF HERPES, on preventitive valtrex, DIABETIC NEUROPATHY. 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 07-25-15 .LT HIP REPLACEMENT. ADMITTED WITH INC CELLULITIS LT HIP, one-vessel coronary artery bypass saphenous to the RCA and aortic valve replacement using bioprosthetic valve Past Anesthesia/Blood Transfusion Reactions: No Reported Reaction Additional Past Anesthesia/Blood Transfusion Reaction / Comm: Pt has received blood transfusion without reaction. Smoking Status: Former smoker Additional Past Alcohol Use History / Comment(s): No cpap.Lives at home with , retired. - Past Family History Father Family Medical History: Diabetes Mellitus, Hypertension, Memory Impairment Mother Family Medical History: CVA/TIA Brother(s) Family Medical History: Diabetes Mellitus, Hyperlipidemia, Hypertension Son(s) Family Medical History: No Reported History Medications and Allergies Home Medications Medication Instructions Recorded Confirmed Type valACYclovir HCL [Valtrex] 500 mg PO DAILY 07/18/15 12/02/18 History Aspirin EC [Ecotrin Low Dose] 81 mg PO HS 10/02/17 12/02/18 History Citalopram Hydrobromide [CeleXA] 20 mg PO DAILY 10/02/17 12/02/18 History hydrALAZINE HCL [Apresoline] 25 mg PO TID 10/02/17 12/02/18 History Cholecalciferol [Vitamin D3] 1,000 unit PO DAILY 11/12/18 12/02/18 History Doxycycline [Vibramycin] 100 mg PO BID 11/12/18 12/02/18 History Furosemide [Lasix] 40 mg PO DAILY 11/12/18 12/02/18 History Insulin Aspart [NovoLOG] 0 units SQ TID-W/MEALS PRN 11/12/18 12/02/18 History Insulin Aspart [NovoLOG] 27 units SQ TID-W/MEALS 11/12/18 12/02/18 History Insulin Glargine [Lantus] 80 unit SQ HS 11/12/18 12/02/18 History Meloxicam 15 mg PO DAILY 11/12/18 12/02/18 History Metoprolol Tartrate [Lopressor] 25 mg PO BID 11/12/18 12/02/18 History Omeprazole [PriLOSEC] 20 mg PO AC-BRKFST 11/12/18 12/02/18 History Pregabalin [Lyrica] 100 mg PO BID 11/12/18 12/02/18 History metFORMIN HCL [Glucophage] 500 mg PO BID 11/12/18 12/02/18 History traMADol HCL [Ultram] 50 mg PO TID PRN 11/12/18 12/02/18 History Allergies Allergy/AdvReac Type Severity Reaction Status Date / Time Penicillins Allergy Rash/Hives Verified 12/02/18 15:12 Physical Exam Vitals: Vital Signs Temp Pulse Pulse Resp BP BP Pulse Ox 12/02/18 19:28 72 22 12/02/18 19:17 67 22 12/02/18 19:00 69 20 100 12/02/18 18:45 68 20 98 12/02/18 18:30 78 20 96 12/02/18 18:15 70 20 100 12/02/18 18:00 73 43 H 100 12/02/18 17:45 72 20 100 12/02/18 17:30 73 20 99 12/02/18 17:15 69 13 96 12/02/18 17:00 71 16 100 12/02/18 16:45 75 19 100 12/02/18 16:37 80 22 12/02/18 16:30 79 20 100 12/02/18 16:27 78 22 12/02/18 16:15 68 20 97 12/02/18 16:00 82 20 100 12/02/18 15:45 80 14 100 12/02/18 15:30 99.7 F H 74 14 100 12/02/18 05:59 97.3 F L 70 16 167/70 135/88 98 Intake and Output 12/02/18 12/02/18 12/02/18 06:59 14:59 22:59 Intake Total 31 1090.675 Output Total 2600 642 Balance -2569 448.675 Intake: IV 31 1057.0 ACETAMINOPHEN IV (For NPO 100 ) 1,000 mg In Empty Bag 1 bag @ 400 mls/hr IVPB Q6HR [facility] Rx#:[id number] Albumin Human 5% 250 ml 500 In Empty Bag 1 bag @ 250 mls/hr IVPB Q1HR PRN Rx#: [id number] Lactated Ringers 1,000 ml 300 @ 50 mls/hr IV .Q20H [facility] Rx#:[id number] Nitroglycerin-D5w Pmx 50 9.0 mg In Dextrose/Water 1 250ml.bag @ Per Protocol IV ONCE ONE Rx#:[id number] PRESSURE BAGS 48 ceFAZolin 3 gm In Sodium 100 Chloride 0.9% 100 ml @ 100 mls/hr IVPB Q8HR [facility] Rx#:[id number] Intake, IV Titration 33.675 Amount Insulin Regular 100 unit 19.380 In Sodium Chloride 0.9% 100 ml @ Per Protocol IV .Q0M [facility] Rx#:[id number] Propofol 1,000 mg In 14.295 Empty Bag 1 bag @ Titrate IV .Q0M [facility] Rx#: [id number] Output: Chest Tube Drainage 267 Mediastinal x 2 241 RIGHT PLEURAL 26 Gastric Drainage 150 Urine 600 225 Estimated Blood Loss 1999 Other: Voiding Method Indwelling Catheter Weight 127.119 kg ABP, PAP, CO, CI - Last 8 Hours Arterial Blood Pressure 123/42 Arterial Blood Pressure 103/37 Arterial Blood Pressure 132/40 Arterial Blood Pressure 101/37 Arterial Blood Pressure 117/45 Arterial Blood Pressure 107/42 Arterial Blood Pressure 132/50 Arterial Blood Pressure 95/39 Arterial Blood Pressure 88/36 Arterial Blood Pressure 112/42 Arterial Blood Pressure 136/47 Arterial Blood Pressure 124/44 Arterial Blood Pressure 162/60 Arterial Blood Pressure 120/51 Arterial Blood Pressure 106/41 Pulmonary Artery Pressure 30/19 Pulmonary Artery Pressure 29/18 Pulmonary Artery Pressure 38/24 Pulmonary Artery Pressure 30/20 Pulmonary Artery Pressure 36/23 Pulmonary Artery Pressure 32/21 Pulmonary Artery Pressure 38/26 Pulmonary Artery Pressure 29/20 Pulmonary Artery Pressure 29/19 Pulmonary Artery Pressure 30/22 Pulmonary Artery Pressure 37/25 Pulmonary Artery Pressure 35/24 Pulmonary Artery Pressure 45/24 Pulmonary Artery Pressure 44/28 Pulmonary Artery Pressure 31/19 Cardiac Output 5.5 Cardiac Output 5.9 Cardiac Output 5.6 Cardiac Output 5.7 Cardiac Output 5.8 Cardiac Output 5.3 Cardiac Output 5.2 Cardiac Index 2.3 Cardiac Index 2.4 Cardiac Index 2.3 Cardiac Index 2.3 Cardiac Index 2.4 Cardiac Index 2.2 Cardiac Index 2.1 General Appearance: Alert, obese on mechanical ventilation. Neck HEENT: Supple, no lymphadenopathy, no thyroid enlargement, no carotid bruits. ET tube is in Lungs: Decreased breath sounds in the left side positive fine rhonchi with mild expiratory wheezes Chest Wall: Chest wall with the incision from the surgery. Heart: Regular rate and rhythm, S1, S2 normal, no murmur, rub or gallop. Back: Symmetric, no curvature, ROM normal, no CVA tenderness. Abdomen: Soft, non-tender, bowel sounds active all four quadrants, no masses, no organomegaly. Extremities: Extremities normal, atraumatic, no cyanosis or edema. Pulses: 2+ and symmetric. Skin: Skin color, texture, tugor normal, no rashes or lesions. Neurologic: Alert , no motor deficit, Results CBC & Chem 7: 12/03/18 04:57 12/03/18 04:57 Labs: Abnormal Lab Results - Last 24 Hours (Table) 12/01/18 12/02/18 12/02/18 Range/Units 12:52 06:04 08:36 WBC (3.8-10.6) k/uL RBC (4.30-5.90) m/uL Hgb (13.0-17.5) gm/dL Hct (39.0-53.0) % Plt Count (150-450) k/uL Neutrophils # (1.3-7.7) k/uL Lymphocytes # (1.0-4.8) k/uL APTT (22.0-30.0) sec ABG pH (7.35-7.45) ABG pCO2 48 H (35-45) mmHg ABG pO2 >420 H (83-108) mmHg ABG HCO3 28 H (21-25) mmol/L ABG Total CO2 29 H (19-24) mmol/L ABG O2 Saturation 100.0 H (94-97) % ABG Hematocrit (34.0-46.0) % ABG Potassium (3.4-4.5) mmol/L ABG Ionized Calcium (4.5-5.3) mg/dL ABG Glucose 211 H (75-99) mg/dL ABG Lactic Acid 1.8 H (0.5-1.6) mmol/L Hemoglobin (13.0-17.5) gm/dL Potassium (3.5-5.1) mmol/L Chloride (98-107) mmol/L Creatinine (0.66-1.25) mg/dL Glucose (74-99) mg/dL POC Glucose (mg/dL) 296 H (75-99) mg/dL Calcium (8.4-10.2) mg/dL Magnesium (1.6-2.3) mg/dL AST (17-59) U/L Total Protein (6.3-8.2) g/dL Albumin (3.5-5.0) g/dL Arterial Blood Potassium (3.4-4.5) mmol/L Arterial Blood Glucose 211 H (75-99) mg/dL Crossmatch See Detail 12/02/18 12/02/18 12/02/18 Range/Units 09:23 09:25 10:12 WBC (3.8-10.6) k/uL RBC (4.30-5.90) m/uL Hgb (13.0-17.5) gm/dL Hct (39.0-53.0) % Plt Count (150-450) k/uL Neutrophils # (1.3-7.7) k/uL Lymphocytes # (1.0-4.8) k/uL APTT (22.0-30.0) sec ABG pH (7.35-7.45) ABG pCO2 47 H 46 H 48 H (35-45) mmHg ABG pO2 183 H 187 H 220 H (83-108) mmHg ABG HCO3 27 H 27 H 27 H (21-25) mmol/L ABG Total CO2 29 H 28 H 29 H (19-24) mmol/L ABG O2 Saturation 100.0 H 100.0 H 100.0 H (94-97) % ABG Hematocrit 28 L (34.0-46.0) % ABG Potassium 4.7 H (3.4-4.5) mmol/L ABG Ionized Calcium 4.4 L (4.5-5.3) mg/dL ABG Glucose 165 H 164 H 220 H (75-99) mg/dL ABG Lactic Acid 2.1 H 2.1 H 2.3 H* (0.5-1.6) mmol/L Hemoglobin 12.3 L 12.4 L 9.2 L (13.0-17.5) gm/dL Potassium (3.5-5.1) mmol/L Chloride (98-107) mmol/L Creatinine (0.66-1.25) mg/dL Glucose (74-99) mg/dL POC Glucose (mg/dL) (75-99) mg/dL Calcium (8.4-10.2) mg/dL Magnesium (1.6-2.3) mg/dL AST (17-59) U/L Total Protein (6.3-8.2) g/dL Albumin (3.5-5.0) g/dL Arterial Blood Potassium 4.7 H (3.4-4.5) mmol/L Arterial Blood Glucose 165 H 164 H 220 H (75-99) mg/dL Crossmatch 12/02/18 12/02/18 12/02/18 Range/Units 10:40 11:06 11:38 WBC (3.8-10.6) k/uL RBC (4.30-5.90) m/uL Hgb (13.0-17.5) gm/dL Hct (39.0-53.0) % Plt Count (150-450) k/uL Neutrophils # (1.3-7.7) k/uL Lymphocytes # (1.0-4.8) k/uL APTT (22.0-30.0) sec ABG pH (7.35-7.45) ABG pCO2 46 H (35-45) mmHg ABG pO2 310 H 306 H 300 H (83-108) mmHg ABG HCO3 27 H 26 H 27 H (21-25) mmol/L ABG Total CO2 28 H 27 H 28 H (19-24) mmol/L ABG O2 Saturation 100.0 H 100.0 H 100.0 H (94-97) % ABG Hematocrit 27 L 29 L 27 L (34.0-46.0) % ABG Potassium 4.6 H (3.4-4.5) mmol/L ABG Ionized Calcium 4.4 L 4.4 L 4.3 L (4.5-5.3) mg/dL ABG Glucose 179 H 164 H 180 H (75-99) mg/dL ABG Lactic Acid 2.5 H* 2.7 H* 2.7 H* (0.5-1.6) mmol/L Hemoglobin 8.9 L 9.3 L 8.9 L (13.0-17.5) gm/dL Potassium (3.5-5.1) mmol/L Chloride (98-107) mmol/L Creatinine (0.66-1.25) mg/dL Glucose (74-99) mg/dL POC Glucose (mg/dL) (75-99) mg/dL Calcium (8.4-10.2) mg/dL Magnesium (1.6-2.3) mg/dL AST (17-59) U/L Total Protein (6.3-8.2) g/dL Albumin (3.5-5.0) g/dL Arterial Blood Potassium 4.6 H (3.4-4.5) mmol/L Arterial Blood Glucose 179 H 164 H 180 H (75-99) mg/dL Crossmatch 12/02/18 12/02/18 12/02/18 Range/Units 12:21 12:52 13:01 WBC (3.8-10.6) k/uL RBC (4.30-5.90) m/uL Hgb (13.0-17.5) gm/dL Hct (39.0-53.0) % Plt Count (150-450) k/uL Neutrophils # (1.3-7.7) k/uL Lymphocytes # (1.0-4.8) k/uL APTT (22.0-30.0) sec ABG pH 7.29 L (7.35-7.45) ABG pCO2 48 H 46 H 58 H (35-45) mmHg ABG pO2 334 H 372 H 40 L* (83-108) mmHg ABG HCO3 27 H 26 H 28 H (21-25) mmol/L ABG Total CO2 28 H 27 H 29 H (19-24) mmol/L ABG O2 Saturation 100.0 H 100.0 H 69.6 L (94-97) % ABG Hematocrit 28 L 27 L 26 L (34.0-46.0) % ABG Potassium 4.8 H 4.7 H 4.8 H (3.4-4.5) mmol/L ABG Ionized Calcium 4.3 L 4.3 L 4.3 L (4.5-5.3) mg/dL ABG Glucose 188 H 210 H 196 H (75-99) mg/dL ABG Lactic Acid 2.7 H* 2.7 H* 2.7 H* (0.5-1.6) mmol/L Hemoglobin 9.0 L 8.8 L 8.4 L (13.0-17.5) gm/dL Potassium (3.5-5.1) mmol/L Chloride (98-107) mmol/L Creatinine (0.66-1.25) mg/dL Glucose (74-99) mg/dL POC Glucose (mg/dL) (75-99) mg/dL Calcium (8.4-10.2) mg/dL Magnesium (1.6-2.3) mg/dL AST (17-59) U/L Total Protein (6.3-8.2) g/dL Albumin (3.5-5.0) g/dL Arterial Blood Potassium 4.8 H 4.7 H 4.8 H (3.4-4.5) mmol/L Arterial Blood Glucose 188 H 210 H 196 H (75-99) mg/dL Crossmatch 12/02/18 12/02/18 12/02/18 Range/Units 13:06 13:57 15:01 WBC (3.8-10.6) k/uL RBC (4.30-5.90) m/uL Hgb (13.0-17.5) gm/dL Hct (39.0-53.0) % Plt Count (150-450) k/uL Neutrophils # (1.3-7.7) k/uL Lymphocytes # (1.0-4.8) k/uL APTT (22.0-30.0) sec ABG pH (7.35-7.45) ABG pCO2 46 H (35-45) mmHg ABG pO2 358 H >420 H (83-108) mmHg ABG HCO3 26 H 26 H (21-25) mmol/L ABG Total CO2 27 H 27 H (19-24) mmol/L ABG O2 Saturation 100.0 H 100.0 H (94-97) % ABG Hematocrit 26 L 29 L (34.0-46.0) % ABG Potassium 4.7 H (3.4-4.5) mmol/L ABG Ionized Calcium 4.3 L 4.3 L (4.5-5.3) mg/dL ABG Glucose 201 H 176 H (75-99) mg/dL ABG Lactic Acid 2.8 H* 2.9 H* (0.5-1.6) mmol/L Hemoglobin 8.6 L 9.4 L (13.0-17.5) gm/dL Potassium (3.5-5.1) mmol/L Chloride (98-107) mmol/L Creatinine (0.66-1.25) mg/dL Glucose (74-99) mg/dL POC Glucose (mg/dL) 139 H (75-99) mg/dL Calcium (8.4-10.2) mg/dL Magnesium (1.6-2.3) mg/dL AST (17-59) U/L Total Protein (6.3-8.2) g/dL Albumin (3.5-5.0) g/dL Arterial Blood Potassium 4.7 H (3.4-4.5) mmol/L Arterial Blood Glucose 201 H 176 H (75-99) mg/dL Crossmatch 12/02/18 12/02/18 12/02/18 Range/Units 15:27 16:07 16:08 WBC (3.8-10.6) k/uL RBC (4.30-5.90) m/uL Hgb (13.0-17.5) gm/dL Hct (39.0-53.0) % Plt Count (150-450) k/uL Neutrophils # (1.3-7.7) k/uL Lymphocytes # (1.0-4.8) k/uL APTT (22.0-30.0) sec ABG pH 7.15 L* (7.35-7.45) ABG pCO2 70 H (35-45) mmHg ABG pO2 269 H (83-108) mmHg ABG HCO3 (21-25) mmol/L ABG Total CO2 27 H (19-24) mmol/L ABG O2 Saturation 99.4 H (94-97) % ABG Hematocrit (34.0-46.0) % ABG Potassium (3.4-4.5) mmol/L ABG Ionized Calcium (4.5-5.3) mg/dL ABG Glucose (75-99) mg/dL ABG Lactic Acid (0.5-1.6) mmol/L Hemoglobin (13.0-17.5) gm/dL Potassium (3.5-5.1) mmol/L Chloride (98-107) mmol/L Creatinine (0.66-1.25) mg/dL Glucose (74-99) mg/dL POC Glucose (mg/dL) 131 H 133 H (75-99) mg/dL Calcium (8.4-10.2) mg/dL Magnesium (1.6-2.3) mg/dL AST (17-59) U/L Total Protein (6.3-8.2) g/dL Albumin (3.5-5.0) g/dL Arterial Blood Potassium (3.4-4.5) mmol/L Arterial Blood Glucose (75-99) mg/dL Crossmatch 12/02/18 12/02/18 12/02/18 Range/Units 16:40 16:40 16:40 WBC 15.2 H (3.8-10.6) k/uL RBC 3.42 L (4.30-5.90) m/uL Hgb 11.6 L (13.0-17.5) gm/dL Hct 34.0 L (39.0-53.0) % Plt Count (150-450) k/uL Neutrophils # 10.9 H (1.3-7.7) k/uL Lymphocytes # (1.0-4.8) k/uL APTT 35.9 H (22.0-30.0) sec ABG pH (7.35-7.45) ABG pCO2 (35-45) mmHg ABG pO2 (83-108) mmHg ABG HCO3 (21-25) mmol/L ABG Total CO2 (19-24) mmol/L ABG O2 Saturation (94-97) % ABG Hematocrit (34.0-46.0) % ABG Potassium (3.4-4.5) mmol/L ABG Ionized Calcium (4.5-5.3) mg/dL ABG Glucose (75-99) mg/dL ABG Lactic Acid (0.5-1.6) mmol/L Hemoglobin (13.0-17.5) gm/dL Potassium 5.5 H (3.5-5.1) mmol/L Chloride 113 H (98-107) mmol/L Creatinine 1.35 H (0.66-1.25) mg/dL Glucose 136 H (74-99) mg/dL POC Glucose (mg/dL) (75-99) mg/dL Calcium 7.9 L (8.4-10.2) mg/dL Magnesium 2.6 H (1.6-2.3) mg/dL AST 98 H (17-59) U/L Total Protein 4.9 L (6.3-8.2) g/dL Albumin 3.0 L (3.5-5.0) g/dL Arterial Blood Potassium (3.4-4.5) mmol/L Arterial Blood Glucose (75-99) mg/dL Crossmatch 12/02/18 12/02/18 12/02/18 Range/Units 16:41 17:20 18:00 WBC (3.8-10.6) k/uL RBC (4.30-5.90) m/uL Hgb (13.0-17.5) gm/dL Hct (39.0-53.0) % Plt Count (150-450) k/uL Neutrophils # (1.3-7.7) k/uL Lymphocytes # (1.0-4.8) k/uL APTT (22.0-30.0) sec ABG pH (7.35-7.45) ABG pCO2 (35-45) mmHg ABG pO2 146 H (83-108) mmHg ABG HCO3 (21-25) mmol/L ABG Total CO2 26 H (19-24) mmol/L ABG O2 Saturation 99.7 H (94-97) % ABG Hematocrit (34.0-46.0) % ABG Potassium (3.4-4.5) mmol/L ABG Ionized Calcium (4.5-5.3) mg/dL ABG Glucose (75-99) mg/dL ABG Lactic Acid (0.5-1.6) mmol/L Hemoglobin (13.0-17.5) gm/dL Potassium (3.5-5.1) mmol/L Chloride (98-107) mmol/L Creatinine (0.66-1.25) mg/dL Glucose (74-99) mg/dL POC Glucose (mg/dL) 142 H 111 H (75-99) mg/dL Calcium (8.4-10.2) mg/dL Magnesium (1.6-2.3) mg/dL AST (17-59) U/L Total Protein (6.3-8.2) g/dL Albumin (3.5-5.0) g/dL Arterial Blood Potassium (3.4-4.5) mmol/L Arterial Blood Glucose (75-99) mg/dL Crossmatch 12/02/18 12/02/18 12/02/18 Range/Units 18:01 18:57 18:58 WBC (3.8-10.6) k/uL RBC 2.73 L (4.30-5.90) m/uL Hgb 9.5 L D (13.0-17.5) gm/dL Hct 26.6 L (39.0-53.0) % Plt Count 130 L (150-450) k/uL Neutrophils # (1.3-7.7) k/uL Lymphocytes # (1.0-4.8) k/uL APTT (22.0-30.0) sec ABG pH (7.35-7.45) ABG pCO2 (35-45) mmHg ABG pO2 (83-108) mmHg ABG HCO3 (21-25) mmol/L ABG Total CO2 (19-24) mmol/L ABG O2 Saturation (94-97) % ABG Hematocrit (34.0-46.0) % ABG Potassium (3.4-4.5) mmol/L ABG Ionized Calcium (4.5-5.3) mg/dL ABG Glucose (75-99) mg/dL ABG Lactic Acid (0.5-1.6) mmol/L Hemoglobin (13.0-17.5) gm/dL Potassium (3.5-5.1) mmol/L Chloride (98-107) mmol/L Creatinine (0.66-1.25) mg/dL Glucose (74-99) mg/dL POC Glucose (mg/dL) 138 H 162 H (75-99) mg/dL Calcium (8.4-10.2) mg/dL Magnesium (1.6-2.3) mg/dL AST (17-59) U/L Total Protein (6.3-8.2) g/dL Albumin (3.5-5.0) g/dL Arterial Blood Potassium (3.4-4.5) mmol/L Arterial Blood Glucose (75-99) mg/dL Crossmatch 12/02/18 12/02/18 12/02/18 Range/Units 20:47 20:50 20:50 WBC (3.8-10.6) k/uL RBC 2.76 L (4.30-5.90) m/uL Hgb 9.4 L (13.0-17.5) gm/dL Hct 27.5 L (39.0-53.0) % Plt Count 117 L (150-450) k/uL Neutrophils # (1.3-7.7) k/uL Lymphocytes # 0.6 L (1.0-4.8) k/uL APTT (22.0-30.0) sec ABG pH 7.32 L (7.35-7.45) ABG pCO2 50 H (35-45) mmHg ABG pO2 142 H (83-108) mmHg ABG HCO3 26 H (21-25) mmol/L ABG Total CO2 28 H (19-24) mmol/L ABG O2 Saturation 99.6 H (94-97) % ABG Hematocrit (34.0-46.0) % ABG Potassium (3.4-4.5) mmol/L ABG Ionized Calcium (4.5-5.3) mg/dL ABG Glucose (75-99) mg/dL ABG Lactic Acid (0.5-1.6) mmol/L Hemoglobin (13.0-17.5) gm/dL Potassium (3.5-5.1) mmol/L Chloride 112 H (98-107) mmol/L Creatinine 1.39 H (0.66-1.25) mg/dL Glucose 142 H (74-99) mg/dL POC Glucose (mg/dL) (75-99) mg/dL Calcium 7.8 L (8.4-10.2) mg/dL Magnesium 2.4 H (1.6-2.3) mg/dL AST 87 H (17-59) U/L Total Protein 4.7 L (6.3-8.2) g/dL Albumin 3.0 L (3.5-5.0) g/dL Arterial Blood Potassium (3.4-4.5) mmol/L Arterial Blood Glucose (75-99) mg/dL Crossmatch 12/02/18 Range/Units 20:50 WBC (3.8-10.6) k/uL RBC (4.30-5.90) m/uL Hgb (13.0-17.5) gm/dL Hct (39.0-53.0) % Plt Count (150-450) k/uL Neutrophils # (1.3-7.7) k/uL Lymphocytes # (1.0-4.8) k/uL APTT (22.0-30.0) sec ABG pH (7.35-7.45) ABG pCO2 (35-45) mmHg ABG pO2 (83-108) mmHg ABG HCO3 (21-25) mmol/L ABG Total CO2 (19-24) mmol/L ABG O2 Saturation (94-97) % ABG Hematocrit (34.0-46.0) % ABG Potassium (3.4-4.5) mmol/L ABG Ionized Calcium (4.5-5.3) mg/dL ABG Glucose (75-99) mg/dL ABG Lactic Acid (0.5-1.6) mmol/L Hemoglobin (13.0-17.5) gm/dL Potassium (3.5-5.1) mmol/L Chloride (98-107) mmol/L Creatinine (0.66-1.25) mg/dL Glucose (74-99) mg/dL POC Glucose (mg/dL) 154 H (75-99) mg/dL Calcium (8.4-10.2) mg/dL Magnesium (1.6-2.3) mg/dL AST (17-59) U/L Total Protein (6.3-8.2) g/dL Albumin (3.5-5.0) g/dL Arterial Blood Potassium (3.4-4.5) mmol/L Arterial Blood Glucose (75-99) mg/dL Crossmatch Assessment and Plan Plan: 1 post aortic valve placement for severe calcified aortic valve stenosis patient had bioprosthetic valve successful surgery doing well so far continue postsurgical care. 2 post one-vessel bypass surgery with saphenous to the RCA: Stable and doing well as well continue post open heart surgery care continue to watch patient in within a week status still have chest tube watch for any A. fib still on mechanical ventilation been watch by intensive care Dr. Granda. 3 diabetes: Type II has been on metformin along with NovoLog and Lantus continue medication continue patient on insulin drip and gradually transferred to bolus and before meals meals. 4 respiratory failure: Post surgery still have an ET tube continue O2 along with bronchodilator. 5 arrhythmia: Patient was started on amiodarone the IV. 6 hyperlipidemia: Remain on atorvastatin 40 mg daily. 7 mild anemia: Mostly iron deficient continue multivitamin iron supplement. 8 stage II chronic kidney disease: Has been stable before and after surgery GFR along with BUN/creatinine no much change. 9 mild abnormal liver function test: Which most likely hypoperfusion post surgery. 10 hypertension: Patient was started on hydralazine was using at home along with metoprolol resume both medication. 11 chronic pain syndrome: Patient is on Dilaudid with switch to oral hydrocodone and tramadol. 12 GI prophylaxis: Patient remain on pantoprazole. CODE STATUS: Full code. Dr. Irby thank you very much for the consult if I can be any further help to please let me know.
[2018-12-03 11:15] VITALS: BMI 42.6
[2018-12-03 11:20] LABS: Glucose,Whole Blood 134 mg/dL (75-99)
--- NOTE | 2018-12-03 11:20 | P.PN ---
Subjective Progress Note Date: 12/03/18 Principal diagnosis: Status post one-vessel bypass surgery and aortic valve placement, type 2 diabetes on insulin drip 68-year-old male one of Dr. Graham patient with past medical history of aortic stenosis, hypertension, hyperlipidemia, history of diabetes, severe GERD chronic edema mild depression who has been experiencing exertional dyspnea over the last 6 month without any syncopal episode denies any chest pain. Patient subsequently seen cardiology transesophageal echocardiogram and heart catheter revealed severe calcified aortic valve stenosis with severe restriction also patient had trace mitral regurgitation. 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 Patient was seen pulmonary PFT performed and showed mild obstructive lung disease patient ended up being hospitalized for elective surgery today successfully and ended up having one-vessel coronary artery bypass saphenous to the RCA and aortic valve replacement using bioprosthetic valve. Patient was admitted to the intensive care unit still on mechanical ventilation still on induced coma this point chest tube is in place. 12/03: Patient is extubated sitting in the chair doing well still have soreness and discomfort from the incision site, blood sugar is in the low 100 still on insulin drip close to 4.5 units an hour. Patient respiratory status is much better so far. No arrhythmia or A. fib. Objective - Vital Signs Vital signs: Vital Signs Temp 97.5 F L 12/03/18 10:15 Pulse 74 12/03/18 10:30 Resp 12 12/03/18 10:30 BP 82/38 12/03/18 09:00 Pulse Ox 96 12/03/18 10:30 Intake & Output 12/02/18 12/03/18 12/03/18 18:59 06:59 18:59 Intake Total 2798.534 5085.719 358.834 Output Total 2946 1041 402 Balance -1864.092 388.719 -43.166 Weight 127.119 kg 134.9 kg Intake: IV 1063.0 1060.0 340.0 ACETAMINOPHEN IV (For NPO 100 200 ) 1,000 mg In Empty Bag 1 bag @ 400 mls/hr IVPB Q6HR [facility] Rx#:[id number] Albumin Human 5% 250 ml 500 In Empty Bag 1 bag @ 250 mls/hr IVPB Q1HR PRN Rx#: [id number] Co/CI 90 110 20 Lactated Ringers 1,000 ml 200 590 190 @ 20 mls/hr IV .Q24H [facility] Rx#:[id number] Nitroglycerin-D5w Pmx 50 6.0 18.0 3.0 mg In Dextrose/Water 1 250ml.bag @ Per Protocol IV ONCE ONE Rx#:[id number] PRESSURE BAGS 36 42 27 ceFAZolin 3 gm In Sodium 100 100 100 Chloride 0.9% 100 ml @ 100 mls/hr IVPB Q8HR [facility] Rx#:[id number] Intake, IV Titration 18.908 84.719 18.834 Amount Clevidipine Butyrate 25 31.166 18.834 mg In Empty Bag 1 bag @ 1 MG/HR 2 mls/hr IV .Q24H [facility] Rx#:[id number] Insulin Regular 100 unit 4.613 53.553 In Sodium Chloride 0.9% 100 ml @ Per Protocol IV .Q0M [facility] Rx#:[id number] Propofol 1,000 mg In 14.295 Empty Bag 1 bag @ Titrate IV .Q0M [facility] Rx#: [id number] Oral 240 Other 45 Output: Chest Tube Drainage 201 288 212 Mediastinal x 2 181 167 110 RIGHT PLEURAL 20 121 102 Gastric Drainage 150 Urine 745 483 190 Emesis 120 Estimated Blood Loss 1999 Other: Voiding Method Indwelling Catheter Indwelling Catheter Indwelling Catheter ABP, PAP, CO, CI - Last Documented Arterial Blood Pressure 106/39 Pulmonary Artery Pressure 25/17 Cardiac Output 5.9 Cardiac Index 2.4 - Exam Review of system: CONSTITUTIONAL: Obese no acute respiratory distress. EYES: No icterus sclerae, no conjunctivitis. EARS, NOSE, MOUTH, THROAT, and FACE: No sore throat, lymphadenopathy, carotid bruits or deformity. RESPIRATORY: No SOB cough or wheezes. Still have chest wall pain from the surgical incision CARDIOVASCULAR: Positive CP, no Palpitation, PND, Orthopnea, or angina. GASTROINTESTINAL: No Abd pain, Nausea or vomiting, no Diarrhea or constipation, No GI Bleed, no distention or masses. GENITOURINARY: Negative for Hematuria or UTI, no kidney stones. INTEGUMENT/BREAST: Negative for any muscular injury with mild osteoarthritis.. HEMATOLOGIC/LYMPHATIC: Negative for bleed or purpura. MUSCULOSKELTAL: Negative for Myalgia or arthralgia. NEURLOGICAL: No LOC, Sz or syncope, blurred vision dizziness or abnormality.. BEHAVIORAL/PSYCH: Negative. ENDOCRINE: Negative. Physical examination: General Appearance: Alert, cooperative, no distress, obese sitting up in a chair. Neck HEENT: Supple, no lymphadenopathy, no thyroid enlargement, no carotid bruits. Lungs: Decrease breath sounds left side positive fine rhonchi no crackles or wheezes. Chest Wall: Incision looks fine with mild soreness and tenderness only. Heart: Regular rate and rhythm, S1, S2 normal, no murmur, rub or gallop. Back: Symmetric, no curvature, ROM normal, no CVA tenderness. Abdomen: Soft, non-tender, bowel sounds active all four quadrants, no masses, no organomegaly. Extremities: Extremities normal, atraumatic, no cyanosis or edema. Pulses: 2+ and symmetric. Skin: Skin color, texture, tugor normal, no rashes or lesions. Neurologic: Alert oriented x3 cranial nerves II through XII intact, no motor deficit, no abnormal balance or gait. - Labs CBC & Chem 7: 12/03/18 04:57 12/03/18 04:57 Labs: Abnormal Lab Results - Last 24 Hours (Table) 12/01/18 12/02/18 12/02/18 Range/Units 12:52 08:36 09:23 WBC (3.8-10.6) k/uL RBC (4.30-5.90) m/uL Hgb (13.0-17.5) gm/dL Hct (39.0-53.0) % MCV (80.0-100.0) fL Plt Count (150-450) k/uL Neutrophils # (1.3-7.7) k/uL Lymphocytes # (1.0-4.8) k/uL APTT (22.0-30.0) sec ABG pH (7.35-7.45) ABG pCO2 48 H 47 H (35-45) mmHg ABG pO2 >420 H 183 H (83-108) mmHg ABG HCO3 28 H 27 H (21-25) mmol/L ABG Total CO2 29 H 29 H (19-24) mmol/L ABG O2 Saturation 100.0 H 100.0 H (94-97) % ABG Hematocrit (34.0-46.0) % ABG Potassium (3.4-4.5) mmol/L ABG Ionized Calcium (4.5-5.3) mg/dL ABG Glucose 211 H 165 H (75-99) mg/dL ABG Lactic Acid 1.8 H 2.1 H (0.5-1.6) mmol/L Hemoglobin 12.3 L (13.0-17.5) gm/dL Potassium (3.5-5.1) mmol/L Chloride (98-107) mmol/L Creatinine (0.66-1.25) mg/dL Glucose (74-99) mg/dL POC Glucose (mg/dL) (75-99) mg/dL Calcium (8.4-10.2) mg/dL Magnesium (1.6-2.3) mg/dL AST (17-59) U/L Total Protein (6.3-8.2) g/dL Albumin (3.5-5.0) g/dL Arterial Blood Potassium (3.4-4.5) mmol/L Arterial Blood Glucose 211 H 165 H (75-99) mg/dL Crossmatch See Detail 12/02/18 12/02/18 12/02/18 Range/Units 09:25 10:12 10:40 WBC (3.8-10.6) k/uL RBC (4.30-5.90) m/uL Hgb (13.0-17.5) gm/dL Hct (39.0-53.0) % MCV (80.0-100.0) fL Plt Count (150-450) k/uL Neutrophils # (1.3-7.7) k/uL Lymphocytes # (1.0-4.8) k/uL APTT (22.0-30.0) sec ABG pH (7.35-7.45) ABG pCO2 46 H 48 H (35-45) mmHg ABG pO2 187 H 220 H 310 H (83-108) mmHg ABG HCO3 27 H 27 H 27 H (21-25) mmol/L ABG Total CO2 28 H 29 H 28 H (19-24) mmol/L ABG O2 Saturation 100.0 H 100.0 H 100.0 H (94-97) % ABG Hematocrit 28 L 27 L (34.0-46.0) % ABG Potassium 4.7 H (3.4-4.5) mmol/L ABG Ionized Calcium 4.4 L 4.4 L (4.5-5.3) mg/dL ABG Glucose 164 H 220 H 179 H (75-99) mg/dL ABG Lactic Acid 2.1 H 2.3 H* 2.5 H* (0.5-1.6) mmol/L Hemoglobin 12.4 L 9.2 L 8.9 L (13.0-17.5) gm/dL Potassium (3.5-5.1) mmol/L Chloride (98-107) mmol/L Creatinine (0.66-1.25) mg/dL Glucose (74-99) mg/dL POC Glucose (mg/dL) (75-99) mg/dL Calcium (8.4-10.2) mg/dL Magnesium (1.6-2.3) mg/dL AST (17-59) U/L Total Protein (6.3-8.2) g/dL Albumin (3.5-5.0) g/dL Arterial Blood Potassium 4.7 H (3.4-4.5) mmol/L Arterial Blood Glucose 164 H 220 H 179 H (75-99) mg/dL Crossmatch 12/02/18 12/02/18 12/02/18 Range/Units 11:06 11:38 12:21 WBC (3.8-10.6) k/uL RBC (4.30-5.90) m/uL Hgb (13.0-17.5) gm/dL Hct (39.0-53.0) % MCV (80.0-100.0) fL Plt Count (150-450) k/uL Neutrophils # (1.3-7.7) k/uL Lymphocytes # (1.0-4.8) k/uL APTT (22.0-30.0) sec ABG pH (7.35-7.45) ABG pCO2 46 H 48 H (35-45) mmHg ABG pO2 306 H 300 H 334 H (83-108) mmHg ABG HCO3 26 H 27 H 27 H (21-25) mmol/L ABG Total CO2 27 H 28 H 28 H (19-24) mmol/L ABG O2 Saturation 100.0 H 100.0 H 100.0 H (94-97) % ABG Hematocrit 29 L 27 L 28 L (34.0-46.0) % ABG Potassium 4.6 H 4.8 H (3.4-4.5) mmol/L ABG Ionized Calcium 4.4 L 4.3 L 4.3 L (4.5-5.3) mg/dL ABG Glucose 164 H 180 H 188 H (75-99) mg/dL ABG Lactic Acid 2.7 H* 2.7 H* 2.7 H* (0.5-1.6) mmol/L Hemoglobin 9.3 L 8.9 L 9.0 L (13.0-17.5) gm/dL Potassium (3.5-5.1) mmol/L Chloride (98-107) mmol/L Creatinine (0.66-1.25) mg/dL Glucose (74-99) mg/dL POC Glucose (mg/dL) (75-99) mg/dL Calcium (8.4-10.2) mg/dL Magnesium (1.6-2.3) mg/dL AST (17-59) U/L Total Protein (6.3-8.2) g/dL Albumin (3.5-5.0) g/dL Arterial Blood Potassium 4.6 H 4.8 H (3.4-4.5) mmol/L Arterial Blood Glucose 164 H 180 H 188 H (75-99) mg/dL Crossmatch 12/02/18 12/02/18 12/02/18 Range/Units 12:52 13:01 13:06 WBC (3.8-10.6) k/uL RBC (4.30-5.90) m/uL Hgb (13.0-17.5) gm/dL Hct (39.0-53.0) % MCV (80.0-100.0) fL Plt Count (150-450) k/uL Neutrophils # (1.3-7.7) k/uL Lymphocytes # (1.0-4.8) k/uL APTT (22.0-30.0) sec ABG pH 7.29 L (7.35-7.45) ABG pCO2 46 H 58 H 46 H (35-45) mmHg ABG pO2 372 H 40 L* 358 H (83-108) mmHg ABG HCO3 26 H 28 H 26 H (21-25) mmol/L ABG Total CO2 27 H 29 H 27 H (19-24) mmol/L ABG O2 Saturation 100.0 H 69.6 L 100.0 H (94-97) % ABG Hematocrit 27 L 26 L 26 L (34.0-46.0) % ABG Potassium 4.7 H 4.8 H 4.7 H (3.4-4.5) mmol/L ABG Ionized Calcium 4.3 L 4.3 L 4.3 L (4.5-5.3) mg/dL ABG Glucose 210 H 196 H 201 H (75-99) mg/dL ABG Lactic Acid 2.7 H* 2.7 H* 2.8 H* (0.5-1.6) mmol/L Hemoglobin 8.8 L 8.4 L 8.6 L (13.0-17.5) gm/dL Potassium (3.5-5.1) mmol/L Chloride (98-107) mmol/L Creatinine (0.66-1.25) mg/dL Glucose (74-99) mg/dL POC Glucose (mg/dL) (75-99) mg/dL Calcium (8.4-10.2) mg/dL Magnesium (1.6-2.3) mg/dL AST (17-59) U/L Total Protein (6.3-8.2) g/dL Albumin (3.5-5.0) g/dL Arterial Blood Potassium 4.7 H 4.8 H 4.7 H (3.4-4.5) mmol/L Arterial Blood Glucose 210 H 196 H 201 H (75-99) mg/dL Crossmatch 12/02/18 12/02/18 12/02/18 Range/Units 13:57 15:01 15:27 WBC (3.8-10.6) k/uL RBC (4.30-5.90) m/uL Hgb (13.0-17.5) gm/dL Hct (39.0-53.0) % MCV (80.0-100.0) fL Plt Count (150-450) k/uL Neutrophils # (1.3-7.7) k/uL Lymphocytes # (1.0-4.8) k/uL APTT (22.0-30.0) sec ABG pH (7.35-7.45) ABG pCO2 (35-45) mmHg ABG pO2 >420 H (83-108) mmHg ABG HCO3 26 H (21-25) mmol/L ABG Total CO2 27 H (19-24) mmol/L ABG O2 Saturation 100.0 H (94-97) % ABG Hematocrit 29 L (34.0-46.0) % ABG Potassium (3.4-4.5) mmol/L ABG Ionized Calcium 4.3 L (4.5-5.3) mg/dL ABG Glucose 176 H (75-99) mg/dL ABG Lactic Acid 2.9 H* (0.5-1.6) mmol/L Hemoglobin 9.4 L (13.0-17.5) gm/dL Potassium (3.5-5.1) mmol/L Chloride (98-107) mmol/L Creatinine (0.66-1.25) mg/dL Glucose (74-99) mg/dL POC Glucose (mg/dL) 139 H 131 H (75-99) mg/dL Calcium (8.4-10.2) mg/dL Magnesium (1.6-2.3) mg/dL AST (17-59) U/L Total Protein (6.3-8.2) g/dL Albumin (3.5-5.0) g/dL Arterial Blood Potassium (3.4-4.5) mmol/L Arterial Blood Glucose 176 H (75-99) mg/dL Crossmatch 12/02/18 12/02/18 12/02/18 Range/Units 16:07 16:08 16:40 WBC 15.2 H (3.8-10.6) k/uL RBC 3.42 L (4.30-5.90) m/uL Hgb 11.6 L (13.0-17.5) gm/dL Hct 34.0 L (39.0-53.0) % MCV (80.0-100.0) fL Plt Count (150-450) k/uL Neutrophils # 10.9 H (1.3-7.7) k/uL Lymphocytes # (1.0-4.8) k/uL APTT (22.0-30.0) sec ABG pH 7.15 L* (7.35-7.45) ABG pCO2 70 H (35-45) mmHg ABG pO2 269 H (83-108) mmHg ABG HCO3 (21-25) mmol/L ABG Total CO2 27 H (19-24) mmol/L ABG O2 Saturation 99.4 H (94-97) % ABG Hematocrit (34.0-46.0) % ABG Potassium (3.4-4.5) mmol/L ABG Ionized Calcium (4.5-5.3) mg/dL ABG Glucose (75-99) mg/dL ABG Lactic Acid (0.5-1.6) mmol/L Hemoglobin (13.0-17.5) gm/dL Potassium (3.5-5.1) mmol/L Chloride (98-107) mmol/L Creatinine (0.66-1.25) mg/dL Glucose (74-99) mg/dL POC Glucose (mg/dL) 133 H (75-99) mg/dL Calcium (8.4-10.2) mg/dL Magnesium (1.6-2.3) mg/dL AST (17-59) U/L Total Protein (6.3-8.2) g/dL Albumin (3.5-5.0) g/dL Arterial Blood Potassium (3.4-4.5) mmol/L Arterial Blood Glucose (75-99) mg/dL Crossmatch 12/02/18 12/02/18 12/02/18 Range/Units 16:40 16:40 16:41 WBC (3.8-10.6) k/uL RBC (4.30-5.90) m/uL Hgb (13.0-17.5) gm/dL Hct (39.0-53.0) % MCV (80.0-100.0) fL Plt Count (150-450) k/uL Neutrophils # (1.3-7.7) k/uL Lymphocytes # (1.0-4.8) k/uL APTT 35.9 H (22.0-30.0) sec ABG pH (7.35-7.45) ABG pCO2 (35-45) mmHg ABG pO2 (83-108) mmHg ABG HCO3 (21-25) mmol/L ABG Total CO2 (19-24) mmol/L ABG O2 Saturation (94-97) % ABG Hematocrit (34.0-46.0) % ABG Potassium (3.4-4.5) mmol/L ABG Ionized Calcium (4.5-5.3) mg/dL ABG Glucose (75-99) mg/dL ABG Lactic Acid (0.5-1.6) mmol/L Hemoglobin (13.0-17.5) gm/dL Potassium 5.5 H (3.5-5.1) mmol/L Chloride 113 H (98-107) mmol/L Creatinine 1.35 H (0.66-1.25) mg/dL Glucose 136 H (74-99) mg/dL POC Glucose (mg/dL) 142 H (75-99) mg/dL Calcium 7.9 L (8.4-10.2) mg/dL Magnesium 2.6 H (1.6-2.3) mg/dL AST 98 H (17-59) U/L Total Protein 4.9 L (6.3-8.2) g/dL Albumin 3.0 L (3.5-5.0) g/dL Arterial Blood Potassium (3.4-4.5) mmol/L Arterial Blood Glucose (75-99) mg/dL Crossmatch 12/02/18 12/02/18 12/02/18 Range/Units 17:20 18:00 18:01 WBC (3.8-10.6) k/uL RBC (4.30-5.90) m/uL Hgb (13.0-17.5) gm/dL Hct (39.0-53.0) % MCV (80.0-100.0) fL Plt Count (150-450) k/uL Neutrophils # (1.3-7.7) k/uL Lymphocytes # (1.0-4.8) k/uL APTT (22.0-30.0) sec ABG pH (7.35-7.45) ABG pCO2 (35-45) mmHg ABG pO2 146 H (83-108) mmHg ABG HCO3 (21-25) mmol/L ABG Total CO2 26 H (19-24) mmol/L ABG O2 Saturation 99.7 H (94-97) % ABG Hematocrit (34.0-46.0) % ABG Potassium (3.4-4.5) mmol/L ABG Ionized Calcium (4.5-5.3) mg/dL ABG Glucose (75-99) mg/dL ABG Lactic Acid (0.5-1.6) mmol/L Hemoglobin (13.0-17.5) gm/dL Potassium (3.5-5.1) mmol/L Chloride (98-107) mmol/L Creatinine (0.66-1.25) mg/dL Glucose (74-99) mg/dL POC Glucose (mg/dL) 111 H 138 H (75-99) mg/dL Calcium (8.4-10.2) mg/dL Magnesium (1.6-2.3) mg/dL AST (17-59) U/L Total Protein (6.3-8.2) g/dL Albumin (3.5-5.0) g/dL Arterial Blood Potassium (3.4-4.5) mmol/L Arterial Blood Glucose (75-99) mg/dL Crossmatch 12/02/18 12/02/18 12/02/18 Range/Units 18:57 18:58 20:47 WBC (3.8-10.6) k/uL RBC 2.73 L (4.30-5.90) m/uL Hgb 9.5 L D (13.0-17.5) gm/dL Hct 26.6 L (39.0-53.0) % MCV (80.0-100.0) fL Plt Count 130 L (150-450) k/uL Neutrophils # (1.3-7.7) k/uL Lymphocytes # (1.0-4.8) k/uL APTT (22.0-30.0) sec ABG pH 7.32 L (7.35-7.45) ABG pCO2 50 H (35-45) mmHg ABG pO2 142 H (83-108) mmHg ABG HCO3 26 H (21-25) mmol/L ABG Total CO2 28 H (19-24) mmol/L ABG O2 Saturation 99.6 H (94-97) % ABG Hematocrit (34.0-46.0) % ABG Potassium (3.4-4.5) mmol/L ABG Ionized Calcium (4.5-5.3) mg/dL ABG Glucose (75-99) mg/dL ABG Lactic Acid (0.5-1.6) mmol/L Hemoglobin (13.0-17.5) gm/dL Potassium (3.5-5.1) mmol/L Chloride (98-107) mmol/L Creatinine (0.66-1.25) mg/dL Glucose (74-99) mg/dL POC Glucose (mg/dL) 162 H (75-99) mg/dL Calcium (8.4-10.2) mg/dL Magnesium (1.6-2.3) mg/dL AST (17-59) U/L Total Protein (6.3-8.2) g/dL Albumin (3.5-5.0) g/dL Arterial Blood Potassium (3.4-4.5) mmol/L Arterial Blood Glucose (75-99) mg/dL Crossmatch 12/02/18 12/02/18 12/02/18 Range/Units 20:50 20:50 20:50 WBC (3.8-10.6) k/uL RBC 2.76 L (4.30-5.90) m/uL Hgb 9.4 L (13.0-17.5) gm/dL Hct 27.5 L (39.0-53.0) % MCV (80.0-100.0) fL Plt Count 117 L (150-450) k/uL Neutrophils # (1.3-7.7) k/uL Lymphocytes # 0.6 L (1.0-4.8) k/uL APTT (22.0-30.0) sec ABG pH (7.35-7.45) ABG pCO2 (35-45) mmHg ABG pO2 (83-108) mmHg ABG HCO3 (21-25) mmol/L ABG Total CO2 (19-24) mmol/L ABG O2 Saturation (94-97) % ABG Hematocrit (34.0-46.0) % ABG Potassium (3.4-4.5) mmol/L ABG Ionized Calcium (4.5-5.3) mg/dL ABG Glucose (75-99) mg/dL ABG Lactic Acid (0.5-1.6) mmol/L Hemoglobin (13.0-17.5) gm/dL Potassium (3.5-5.1) mmol/L Chloride 112 H (98-107) mmol/L Creatinine 1.39 H (0.66-1.25) mg/dL Glucose 142 H (74-99) mg/dL POC Glucose (mg/dL) 154 H (75-99) mg/dL Calcium 7.8 L (8.4-10.2) mg/dL Magnesium 2.4 H (1.6-2.3) mg/dL AST 87 H (17-59) U/L Total Protein 4.7 L (6.3-8.2) g/dL Albumin 3.0 L (3.5-5.0) g/dL Arterial Blood Potassium (3.4-4.5) mmol/L Arterial Blood Glucose (75-99) mg/dL Crossmatch 12/02/18 12/03/18 12/03/18 Range/Units 22:57 00:05 00:58 WBC (3.8-10.6) k/uL RBC (4.30-5.90) m/uL Hgb (13.0-17.5) gm/dL Hct (39.0-53.0) % MCV (80.0-100.0) fL Plt Count (150-450) k/uL Neutrophils # (1.3-7.7) k/uL Lymphocytes # (1.0-4.8) k/uL APTT (22.0-30.0) sec ABG pH (7.35-7.45) ABG pCO2 (35-45) mmHg ABG pO2 (83-108) mmHg ABG HCO3 (21-25) mmol/L ABG Total CO2 (19-24) mmol/L ABG O2 Saturation (94-97) % ABG Hematocrit (34.0-46.0) % ABG Potassium (3.4-4.5) mmol/L ABG Ionized Calcium (4.5-5.3) mg/dL ABG Glucose (75-99) mg/dL ABG Lactic Acid (0.5-1.6) mmol/L Hemoglobin (13.0-17.5) gm/dL Potassium (3.5-5.1) mmol/L Chloride (98-107) mmol/L Creatinine (0.66-1.25) mg/dL Glucose (74-99) mg/dL POC Glucose (mg/dL) 143 H 139 H 128 H (75-99) mg/dL Calcium (8.4-10.2) mg/dL Magnesium (1.6-2.3) mg/dL AST (17-59) U/L Total Protein (6.3-8.2) g/dL Albumin (3.5-5.0) g/dL Arterial Blood Potassium (3.4-4.5) mmol/L Arterial Blood Glucose (75-99) mg/dL Crossmatch 12/03/18 12/03/18 12/03/18 Range/Units 02:05 03:10 04:07 WBC (3.8-10.6) k/uL RBC (4.30-5.90) m/uL Hgb (13.0-17.5) gm/dL Hct (39.0-53.0) % MCV (80.0-100.0) fL Plt Count (150-450) k/uL Neutrophils # (1.3-7.7) k/uL Lymphocytes # (1.0-4.8) k/uL APTT (22.0-30.0) sec ABG pH (7.35-7.45) ABG pCO2 (35-45) mmHg ABG pO2 (83-108) mmHg ABG HCO3 (21-25) mmol/L ABG Total CO2 (19-24) mmol/L ABG O2 Saturation (94-97) % ABG Hematocrit (34.0-46.0) % ABG Potassium (3.4-4.5) mmol/L ABG Ionized Calcium (4.5-5.3) mg/dL ABG Glucose (75-99) mg/dL ABG Lactic Acid (0.5-1.6) mmol/L Hemoglobin (13.0-17.5) gm/dL Potassium (3.5-5.1) mmol/L Chloride (98-107) mmol/L Creatinine (0.66-1.25) mg/dL Glucose (74-99) mg/dL POC Glucose (mg/dL) 129 H 133 H 144 H (75-99) mg/dL Calcium (8.4-10.2) mg/dL Magnesium (1.6-2.3) mg/dL AST (17-59) U/L Total Protein (6.3-8.2) g/dL Albumin (3.5-5.0) g/dL Arterial Blood Potassium (3.4-4.5) mmol/L Arterial Blood Glucose (75-99) mg/dL Crossmatch 12/03/18 12/03/18 12/03/18 Range/Units 04:38 04:38 04:57 WBC (3.8-10.6) k/uL RBC 3.17 L (4.30-5.90) m/uL Hgb 10.7 L (13.0-17.5) gm/dL Hct 32.9 L (39.0-53.0) % MCV 103.8 H (80.0-100.0) fL Plt Count 139 L (150-450) k/uL Neutrophils # (1.3-7.7) k/uL Lymphocytes # (1.0-4.8) k/uL APTT (22.0-30.0) sec ABG pH (7.35-7.45) ABG pCO2 (35-45) mmHg ABG pO2 (83-108) mmHg ABG HCO3 (21-25) mmol/L ABG Total CO2 (19-24) mmol/L ABG O2 Saturation (94-97) % ABG Hematocrit (34.0-46.0) % ABG Potassium (3.4-4.5) mmol/L ABG Ionized Calcium (4.5-5.3) mg/dL ABG Glucose (75-99) mg/dL ABG Lactic Acid (0.5-1.6) mmol/L Hemoglobin (13.0-17.5) gm/dL Potassium (3.5-5.1) mmol/L Chloride 112 H 113 H (98-107) mmol/L Creatinine 1.32 H (0.66-1.25) mg/dL Glucose 126 H (74-99) mg/dL POC Glucose (mg/dL) (75-99) mg/dL Calcium 7.8 L 8.2 L (8.4-10.2) mg/dL Magnesium 2.7 H 2.4 H (1.6-2.3) mg/dL AST 82 H 105 H (17-59) U/L Total Protein 4.6 L 4.5 L (6.3-8.2) g/dL Albumin 2.8 L 2.7 L (3.5-5.0) g/dL Arterial Blood Potassium (3.4-4.5) mmol/L Arterial Blood Glucose (75-99) mg/dL Crossmatch 12/03/18 12/03/18 12/03/18 Range/Units 04:57 05:00 07:05 WBC (3.8-10.6) k/uL RBC 2.57 L (4.30-5.90) m/uL Hgb 8.7 L D (13.0-17.5) gm/dL Hct 25.9 L (39.0-53.0) % MCV 100.7 H (80.0-100.0) fL Plt Count 138 L (150-450) k/uL Neutrophils # (1.3-7.7) k/uL Lymphocytes # (1.0-4.8) k/uL APTT (22.0-30.0) sec ABG pH (7.35-7.45) ABG pCO2 (35-45) mmHg ABG pO2 (83-108) mmHg ABG HCO3 (21-25) mmol/L ABG Total CO2 (19-24) mmol/L ABG O2 Saturation (94-97) % ABG Hematocrit (34.0-46.0) % ABG Potassium (3.4-4.5) mmol/L ABG Ionized Calcium (4.5-5.3) mg/dL ABG Glucose (75-99) mg/dL ABG Lactic Acid (0.5-1.6) mmol/L Hemoglobin (13.0-17.5) gm/dL Potassium (3.5-5.1) mmol/L Chloride (98-107) mmol/L Creatinine (0.66-1.25) mg/dL Glucose (74-99) mg/dL POC Glucose (mg/dL) 140 H 146 H (75-99) mg/dL Calcium (8.4-10.2) mg/dL Magnesium (1.6-2.3) mg/dL AST (17-59) U/L Total Protein (6.3-8.2) g/dL Albumin (3.5-5.0) g/dL Arterial Blood Potassium (3.4-4.5) mmol/L Arterial Blood Glucose (75-99) mg/dL Crossmatch 12/03/18 12/03/18 Range/Units 08:11 10:34 WBC (3.8-10.6) k/uL RBC (4.30-5.90) m/uL Hgb (13.0-17.5) gm/dL Hct (39.0-53.0) % MCV (80.0-100.0) fL Plt Count (150-450) k/uL Neutrophils # (1.3-7.7) k/uL Lymphocytes # (1.0-4.8) k/uL APTT (22.0-30.0) sec ABG pH (7.35-7.45) ABG pCO2 (35-45) mmHg ABG pO2 (83-108) mmHg ABG HCO3 (21-25) mmol/L ABG Total CO2 (19-24) mmol/L ABG O2 Saturation (94-97) % ABG Hematocrit (34.0-46.0) % ABG Potassium (3.4-4.5) mmol/L ABG Ionized Calcium (4.5-5.3) mg/dL ABG Glucose (75-99) mg/dL ABG Lactic Acid (0.5-1.6) mmol/L Hemoglobin (13.0-17.5) gm/dL Potassium (3.5-5.1) mmol/L Chloride (98-107) mmol/L Creatinine (0.66-1.25) mg/dL Glucose (74-99) mg/dL POC Glucose (mg/dL) 144 H 136 H (75-99) mg/dL Calcium (8.4-10.2) mg/dL Magnesium (1.6-2.3) mg/dL AST (17-59) U/L Total Protein (6.3-8.2) g/dL Albumin (3.5-5.0) g/dL Arterial Blood Potassium (3.4-4.5) mmol/L Arterial Blood Glucose (75-99) mg/dL Crossmatch Assessment and Plan Plan: 1 post aortic valve placement for severe calcified aortic valve stenosis patient had bioprosthetic valve successful surgery doing D1 post surgery patient is up in the chair. 2 post one-vessel bypass surgery with saphenous to the RCA: Stable and doing well as well continue post open heart surgery care continue to watch patient in within a week status still have chest tube watch for any A. fib still on mechanical ventilation been watch by intensive care Dr. Granda. 3 diabetes: Still on insulin drip with 4.5 units an hour we'll continue insulin drip until tomorrow and start patient on Lantus and Humalog before meals meals. 4 arrhythmia: Patient was on amiodarone drip he is not in A. fib today. 5 hyperlipidemia: Remain on atorvastatin 40 mg daily. 6 stage II chronic kidney disease: Daily lab and continue hydration. 7 mild abnormal liver function test: Which most likely hypoperfusion post surgery. 8 hypertension: Patient was started on hydralazine was using at home along with metoprolol resume both medication. 9 chronic pain syndrome: Patient will be back on his oral hydrocodone and tramadol. 10 GI prophylaxis: Patient remain on pantoprazole.
[2018-12-03 12:09] LABS: Glucose,Whole Blood 130 mg/dL (75-99)
[2018-12-03] MEDS: HEPARIN SODIUM,PORCINE 5,000 UNIT/ML 1 ML VIAL SQ SCH ×2 (12:43→17:56)
[2018-12-03] MEDS: CHOLECALCIFEROL 1,000 UNIT TAB PO SCH (12:45)
[2018-12-03] MEDS: hydrALAZINE HCL 25 MG TAB PO SCH ×2 (12:45→21:43)
[2018-12-03] MEDS: LACTATED RINGERS 1,000 ML IV SCH (12:47)
[2018-12-03 13:54] LABS: Glucose,Whole Blood 170 mg/dL (75-99)
[2018-12-03] MEDS: INSULIN REGULAR 100 UNIT in SODIUM CHLORIDE 0.9% 100 ML IV SCH (14:18)
[2018-12-03 14:28] LABS: Glucose,Whole Blood 160 mg/dL (75-99)
[2018-12-03] MEDS ORDERED: MAGNESIUM HYDROXIDE 2,400 MG/10 ML CUP PO PRN (14:38)
[2018-12-03] MEDS ORDERED: BISACODYL 10 MG SUPP RECTAL PRN (14:38)
[2018-12-03 16:12] LABS: Glucose,Whole Blood 150 mg/dL (75-99)
[2018-12-03 17:33] LABS: Glucose,Whole Blood 134 mg/dL (75-99)
[2018-12-03 19:12] LABS: Glucose,Whole Blood 127 mg/dL (75-99)
[2018-12-03] MEDS: traMADol 50 MG TAB PO PRN (19:59)
[2018-12-03 20:06] LABS: Glucose,Whole Blood 140 mg/dL (75-99)
[2018-12-03] MEDS: SENNOSIDES-DOCUSATE SODIUM 1 EACH TAB PO SCH (21:43)
[2018-12-03 22:13] LABS: Glucose,Whole Blood 119 mg/dL (75-99)
[2018-12-03] MEDS ORDERED: HYDROcodone/APAP 5-325MG 1 EACH TAB PO PRN ×2 (23:00)
[2018-12-03 23:15] LABS: Glucose,Whole Blood 115 mg/dL (75-99)
[2018-12-04 00:26] LABS: Glucose,Whole Blood 109 mg/dL (75-99)
[2018-12-04] MEDS: HEPARIN SODIUM,PORCINE 5,000 UNIT/ML 1 ML VIAL SQ SCH ×3 (00:28→16:20)
[2018-12-04 01:46] LABS: Glucose,Whole Blood 126 mg/dL (75-99)
[2018-12-04 03:21] LABS: Glucose,Whole Blood 129 mg/dL (75-99)
[2018-12-04 04:30] LABS: Glucose,Whole Blood 136 mg/dL (75-99)
[2018-12-04 04:38] LABS: Basophils % (A) 0 %; Eosinophils # (A) 0.1 k/uL (0-0.7); Eosinophils % (A) 1 %; HCT 22.6 % (39.0-53.0); HGB 7.7 gm/dL (13.0-17.5); Lymphocytes # (A) 1.4 k/uL (1.0-4.8); Lymphocytes % (A) 16 %; MCH 34.5 pg (25.0-35.0); MCV 101.4 fL (80.0-100.0); Macrocytosis Slight; Mean Platelet Volume 7.4; Monocytes # (A) 0.6 k/uL (0-1.0); Monocytes % (A) 7 %; Neutrophils # (A) 6.2 k/uL (1.3-7.7); Neutrophils % (A) 74 %; RBC 2.23 m/uL (4.30-5.90); RDW 15.2 % (11.5-15.5); WBC 8.4 k/uL (3.8-10.6)
[2018-12-04] MEDS: traMADol 50 MG TAB PO PRN ×2 (04:44→17:58)
[2018-12-04 04:55] LABS: Ionized Calcium 4.8 mg/dL (4.5-5.3)
[2018-12-04 05:00] LABS: Platelet Count 93 k/uL (150-450)
[2018-12-04 05:01] LABS: Polychromasia Present
[2018-12-04 05:05] LABS: Albumin 2.6 g/dL (3.5-5.0); Magnesium 2.5 mg/dL (1.6-2.3); Potassium 4.7 mmol/L (3.5-5.1); Total Bilirubin 0.6 mg/dL (0.2-1.3); Total Protein 4.4 g/dL (6.3-8.2)
[2018-12-04 05:56] LABS: Glucose,Whole Blood 126 mg/dL (75-99)
--- NOTE | 2018-12-04 07:07 | P.PN ---
Subjective Progress Note Date: 12/04/18 Principal diagnosis: Status post open heart surgery This is a pleasant 68-year-old gentleman who follows with Dr. Brennan in the office as an outpatient with a past medical history significant for aortic stenosis, hypertension, dyslipidemia, and diabetes, as well as prior history of smoking and also prior history of alcohol, who was experiencing symptoms of exertional dyspnea was getting progressed for the last several months. He did also had an episode of syncope. Did not have any symptoms of chest pain or chest discomfort. He was seen and evaluated by Dr. Brennan and the patient was diagnosed with aortic stenosis. He underwent transesophageal echocardiogram which showed a trileaflet aortic valve with heavily calcified valve and evidence of severe aortic sclerosis as well as severe aortic stenosis. There was also mild MR only. Subsequently the patient underwent a heart catheterization which showed calcified left and right coronary system with severe disease involving the mid RCA. The patient underwent yesterday electively aortic valve replacement using bioprosthetic valve along with coronary artery bypass grafting 1 with SVG to RCA. On follow-up with the patient today, December 042018, the patient has been stable clinically. This is post operation day #2. The hemoglobin is 7.7. The creatinine continues to be stable. The patient continues to be on dual antiplatelet therapy along with a statin as well as metoprolol as well as hydralazine IV. Her blood pressure is on the higher side and he might benefit from increasing the dose of metoprolol. Objective - Vital Signs Vital signs: Vital Signs Temp 99.7 F H 12/04/18 04:45 Pulse 80 12/04/18 06:45 Resp 14 12/04/18 06:45 BP 82/38 12/03/18 22:15 Pulse Ox 96 12/04/18 06:45 Intake & Output 12/03/18 12/04/18 12/04/18 18:59 06:59 18:59 Intake Total 1016.006 850.199 Output Total 762 678 Balance 254.006 172.199 Weight 134.9 kg Intake: IV 908.0 602 ACETAMINOPHEN IV (For NPO 200 ) 1,000 mg In Empty Bag 1 bag @ 400 mls/hr IVPB Q6HR [facility] Rx#:[id number] Co/CI 20 Lactated Ringers 1,000 ml 510 510 @ 20 mls/hr IV .Q24H [facility] Rx#:[id number] Nitroglycerin-D5w Pmx 50 3.0 mg In Dextrose/Water 1 250ml.bag @ Per Protocol IV ONCE ONE Rx#:[id number] PRESSURE BAGS 75 42 ceFAZolin 3 gm In Sodium 100 Chloride 0.9% 100 ml @ 100 mls/hr IVPB Q8HR [facility] Rx#:[id number] ceFAZolin 3 gm In Sodium 50 Chloride 0.9% 50 ml @ 50 mls/hr IVPB Q8HR [facility] Rx#: [id number] Intake, IV Titration 108.006 68.199 Amount Clevidipine Butyrate 25 48.667 mg In Empty Bag 1 bag @ 1 MG/HR 2 mls/hr IV .Q24H [facility] Rx#:[id number] Insulin Regular 100 unit 59.339 68.199 In Sodium Chloride 0.9% 100 ml @ Per Protocol IV .Q0M [facility] Rx#:[id number] Oral 180 Output: Chest Tube Drainage 242 130 Mediastinal x 2 130 30 RIGHT PLEURAL 112 100 Urine 520 548 Other: Voiding Method Indwelling Catheter Indwelling Catheter ABP, PAP, CO, CI - Last Documented Arterial Blood Pressure 146/39 Pulmonary Artery Pressure 25/17 Cardiac Output 5.9 Cardiac Index 2.4 - Constitutional General appearance: Present: no acute distress - Respiratory Respiratory: bilateral: diminished - Cardiovascular Rhythm: regular Heart sounds: normal: S1, S2 - Labs CBC & Chem 7: 12/04/18 04:25 12/04/18 04:25 Labs: Abnormal Lab Results - Last 24 Hours (Table) 12/02/18 12/03/18 12/03/18 Range/Units 13:57 07:05 08:11 RBC (4.30-5.90) m/uL Hgb (13.0-17.5) gm/dL Hct (39.0-53.0) % MCV (80.0-100.0) fL Plt Count (150-450) k/uL ABG Lactic Acid 2.9 H* (0.5-1.6) mmol/L Chloride (98-107) mmol/L BUN (9-20) mg/dL Glucose (74-99) mg/dL POC Glucose (mg/dL) 146 H 144 H (75-99) mg/dL Calcium (8.4-10.2) mg/dL Magnesium (1.6-2.3) mg/dL AST (17-59) U/L Total Protein (6.3-8.2) g/dL Albumin (3.5-5.0) g/dL 12/03/18 12/03/18 12/03/18 Range/Units 10:34 11:01 11:55 RBC (4.30-5.90) m/uL Hgb (13.0-17.5) gm/dL Hct (39.0-53.0) % MCV (80.0-100.0) fL Plt Count (150-450) k/uL ABG Lactic Acid (0.5-1.6) mmol/L Chloride (98-107) mmol/L BUN (9-20) mg/dL Glucose (74-99) mg/dL POC Glucose (mg/dL) 136 H 134 H 130 H (75-99) mg/dL Calcium (8.4-10.2) mg/dL Magnesium (1.6-2.3) mg/dL AST (17-59) U/L Total Protein (6.3-8.2) g/dL Albumin (3.5-5.0) g/dL 12/03/18 12/03/18 12/03/18 Range/Units 13:51 14:25 15:58 RBC (4.30-5.90) m/uL Hgb (13.0-17.5) gm/dL Hct (39.0-53.0) % MCV (80.0-100.0) fL Plt Count (150-450) k/uL ABG Lactic Acid (0.5-1.6) mmol/L Chloride (98-107) mmol/L BUN (9-20) mg/dL Glucose (74-99) mg/dL POC Glucose (mg/dL) 170 H 160 H 150 H (75-99) mg/dL Calcium (8.4-10.2) mg/dL Magnesium (1.6-2.3) mg/dL AST (17-59) U/L Total Protein (6.3-8.2) g/dL Albumin (3.5-5.0) g/dL 12/03/18 12/03/18 12/03/18 Range/Units 17:12 18:51 20:04 RBC (4.30-5.90) m/uL Hgb (13.0-17.5) gm/dL Hct (39.0-53.0) % MCV (80.0-100.0) fL Plt Count (150-450) k/uL ABG Lactic Acid (0.5-1.6) mmol/L Chloride (98-107) mmol/L BUN (9-20) mg/dL Glucose (74-99) mg/dL POC Glucose (mg/dL) 134 H 127 H 140 H (75-99) mg/dL Calcium (8.4-10.2) mg/dL Magnesium (1.6-2.3) mg/dL AST (17-59) U/L Total Protein (6.3-8.2) g/dL Albumin (3.5-5.0) g/dL 12/03/18 12/03/18 12/04/18 Range/Units 22:11 23:12 00:24 RBC (4.30-5.90) m/uL Hgb (13.0-17.5) gm/dL Hct (39.0-53.0) % MCV (80.0-100.0) fL Plt Count (150-450) k/uL ABG Lactic Acid (0.5-1.6) mmol/L Chloride (98-107) mmol/L BUN (9-20) mg/dL Glucose (74-99) mg/dL POC Glucose (mg/dL) 119 H 115 H 109 H (75-99) mg/dL Calcium (8.4-10.2) mg/dL Magnesium (1.6-2.3) mg/dL AST (17-59) U/L Total Protein (6.3-8.2) g/dL Albumin (3.5-5.0) g/dL 12/04/18 12/04/18 12/04/18 Range/Units 01:07 02:59 04:25 RBC (4.30-5.90) m/uL Hgb (13.0-17.5) gm/dL Hct (39.0-53.0) % MCV (80.0-100.0) fL Plt Count (150-450) k/uL ABG Lactic Acid (0.5-1.6) mmol/L Chloride 109 H (98-107) mmol/L BUN 24 H (9-20) mg/dL Glucose 122 H (74-99) mg/dL POC Glucose (mg/dL) 126 H 129 H (75-99) mg/dL Calcium 8.0 L (8.4-10.2) mg/dL Magnesium 2.5 H (1.6-2.3) mg/dL AST 126 H (17-59) U/L Total Protein 4.4 L (6.3-8.2) g/dL Albumin 2.6 L (3.5-5.0) g/dL 12/04/18 12/04/18 12/04/18 Range/Units 04:25 04:27 05:54 RBC 2.23 L (4.30-5.90) m/uL Hgb 7.7 L (13.0-17.5) gm/dL Hct 22.6 L (39.0-53.0) % MCV 101.4 H (80.0-100.0) fL Plt Count 93 L (150-450) k/uL ABG Lactic Acid (0.5-1.6) mmol/L Chloride (98-107) mmol/L BUN (9-20) mg/dL Glucose (74-99) mg/dL POC Glucose (mg/dL) 136 H 126 H (75-99) mg/dL Calcium (8.4-10.2) mg/dL Magnesium (1.6-2.3) mg/dL AST (17-59) U/L Total Protein (6.3-8.2) g/dL Albumin (3.5-5.0) g/dL Assessment and Plan Assessment: Assessment #1 severe aortic stenosis and status post aortic valve replacement using bioprosthetic valve #2 severe CAD and status post SVG to RCA #3 hypertension #4 dyslipidemia #5 diabetes #6 history of smoking Plan #1 continue the current medical regimen including dual antiplatelet therapy #2 continue daily chest x-ray. #3 possible increasing the dose of metoprolol #4 follow-up with the patient Thank you for allowing us participate in his care
[2018-12-04 07:10] LABS: Glucose,Whole Blood 132 mg/dL (75-99)
[2018-12-04] MEDS: IPRATROPIUM-ALBUTEROL 3 ML NEB INHALATION SCH ×4 (07:31→19:17)
[2018-12-04] MEDS: PANTOPRAZOLE 40 MG TABLET PO SCH (07:35)
--- NOTE | 2018-12-04 08:31 | P.PN ---
Subjective Progress Note Date: 12/04/18 Principal diagnosis: Severe aortic valve stenosis, coronary artery disease, status post aortic valve replacement, and one-vessel bypass grafting This is 68-year-old white male patient of Dr. Jonathan Morataya, past medical history of aortic stenosis, hypertension, hyperlipidemia, family history of coronary artery disease, diabetes mellitus with neuropathy, previous tobacco dependence, occasional EtOH use, basal cell skin carcinoma, osteoarthritis, status post right and left hip replacement, with postoperative infections wiring IV antibiotic infusions per Dr. Ricci. Patient been experiencing exertional dyspnea over the previous 4-6 months, and any syncopal episodes, denied any chest pain. Ration underwent CARMELA and left heart catheterization by Dr. Messina, and the CARMELA showed a 3 leaflet aortic valve with heavy calcification and severe restriction, history of aortic stenosis, trace mitral regurg, mild tricuspid regurg, concentric left ventricular hypertrophy with preserved left ventricular function. The catheterization showed a calcified left main coronary artery without significant stenosis, right coronary artery with proximal stenosis of 40-50% and mid stenosis 70-80% and 30-40% stenosis in the circumflex coronary artery. Preop PFT showed FEV1 of 1.83 L or 56% of predicted , with a forced vital capacity of 2.86 L or 64% of predicted, consistent with moderately severe restriction. 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 Today on 12/02/2018 patient seen in the intensive care unit, in the postoperative period, status post 1 vessel coronary artery bypass, SVG to the RCA, and aortic valve replacement using a bioprosthetic valve. Patient is that it, intubated on mechanical ventilator, current vent settings are SIMV mode with a rate of 12, tidal volume of 580, FiO2 100% and PEEP of 10. Patient was placed on assist-control mode with the same rate and tidal volume and FiO2. Patient is DDD paced, rate of 80 BPM. Current IV drips include lactated Ringer's at a rate of 50 ML per hour, Diprivan at 25 mics per kilo per minute, insulin is a 5 units per hour, nitroglycerin is at 5 mics per kilo per minute. Midsternal incision is clean dry and intact, 2 mediastinal chest tubes connected to Pleur-evac, with 60 mL of serosanguineous output, right pleural chest tube with minimal sanguis output in the Pleur-evac. Postop chest x-ray has been reviewed with Dr. Granda, shows left basal atelectasis, ET tube, NG tube PA catheter are in good locations. Postoperative blood work is pending. On 12/03/2018 patient seen in follow-up in the intensive care unit, patient was extubated at 2130 last night. Currently on 3 L per nasal cannula, pulse ox of 94%, afebrile, in sinus mechanism, with a rate of 74 BPM, blood pressure is 133/ 41, PA pressures of 19/13, with a CVP of 9, cardiac output is 5.9, and cardiac index is 2.4. Maintenance IV fluids are lactated Ringer's at 50 ML per hour,: Percocet 5 mg per hour, and insulin is at 5.5 units per hour. This is postop day 1 post one-vessel CABG, SVG to the RCA, and aortic valve replacement with a bioprosthetic valve. he is awake and alert, he needs it quite a bit of encouragement with deep breathing and coughing, and use of incentive spirometer , lung sounds are positive for crackles at the left lower base, otherwise clear. Incentive spirometer effort is 750 ML today. Today's chest x-ray was reviewed with Dr. Post, and showed left basilar atelectasis, chest tubes and PA catheter are in appropriate positions, with interval removal of the ET tube and OG tube. Today's labs have been reviewed, white blood cell count is 9.1, hemoglobin is 8.7, INR is 1.0, sodium is 143, potassium is 4.7, chloride is 113 , CO2 is 25 BUN is 20, creatinine is 1.32. AST was up slightly to 105 from 82, ALT was 44, alkaline phosphatase was 40. On 12/04/2018 patient seen in follow-up in the intensive care unit, sitting up in a chair. In no acute distress, currently on 2 L per nasal cannula, pulse ox is 98%, afebrile, hemodynamically stable. PA catheter has been discontinued. Lung sounds are clear to auscultation, today's chest x-ray has been reviewed with Dr. Granda. It showed left basilar atelectasis, and mild pulmonary vessel congestion. The patient is calm and comfortable, no dyspnea, incentive spirometer effort is 750 ML today. IV fluids are lactated Ringer's a rate of 40 ML per hour, insulin drip is at 5 units per hour. Mediastinal chest tube and right chest tubes are in place, and there has been 160 mL out of the mediastinal chest tubes, and to 12 mL out of the right pleural. Today's labs have been reviewed, white blood cell count is 8.4, hemoglobin is 7.7, sodium is 138, potassium is 4.7, chloride is 109, BUN is 24 creatinine is 1.2. Objective - Vital Signs Vital signs: Vital Signs Temp 99.7 F H 12/04/18 04:45 Pulse 76 12/04/18 07:51 Resp 15 12/04/18 07:30 BP 82/38 12/03/18 22:15 Pulse Ox 98 12/04/18 07:30 Intake & Output 12/03/18 12/04/18 12/04/18 18:59 06:59 18:59 Intake Total 1016.006 850.199 Output Total 762 678 Balance 254.006 172.199 Weight 134.9 kg Intake: IV 908.0 602 ACETAMINOPHEN IV (For NPO 200 ) 1,000 mg In Empty Bag 1 bag @ 400 mls/hr IVPB Q6HR [facility] Rx#:[id number] Co/CI 20 Lactated Ringers 1,000 ml 510 510 @ 20 mls/hr IV .Q24H [facility] Rx#:[id number] Nitroglycerin-D5w Pmx 50 3.0 mg In Dextrose/Water 1 250ml.bag @ Per Protocol IV ONCE ONE Rx#:[id number] PRESSURE BAGS 75 42 ceFAZolin 3 gm In Sodium 100 Chloride 0.9% 100 ml @ 100 mls/hr IVPB Q8HR [facility] Rx#:[id number] ceFAZolin 3 gm In Sodium 50 Chloride 0.9% 50 ml @ 50 mls/hr IVPB Q8HR [facility] Rx#: [id number] Intake, IV Titration 108.006 68.199 Amount Clevidipine Butyrate 25 48.667 mg In Empty Bag 1 bag @ 1 MG/HR 2 mls/hr IV .Q24H [facility] Rx#:[id number] Insulin Regular 100 unit 59.339 68.199 In Sodium Chloride 0.9% 100 ml @ Per Protocol IV .Q0M [facility] Rx#:[id number] Oral 180 Output: Chest Tube Drainage 242 130 Mediastinal x 2 130 30 RIGHT PLEURAL 112 100 Urine 520 548 Other: Voiding Method Indwelling Catheter Indwelling Catheter ABP, PAP, CO, CI - Last Documented Arterial Blood Pressure 152/46 Pulmonary Artery Pressure 25/17 Cardiac Output 5.9 Cardiac Index 2.4 - Exam GENERAL EXAM: 68-year-old obese white male patient, currently on 2 L per nasal cannula with a pulse ox of 94%, learning extubation well HEAD: Normocephalic/atraumatic. EYES: Normal reaction of pupils, equal size. Conjunctiva pink, sclera white. NOSE: Clear with pink turbinates. THROAT: No erythema or exudates. NECK: No masses, no JVD, no thyroid enlargement, no adenopathy. CHEST: No chest wall deformity. Symmetrical expansion. Midsternal incision is clean dry and intact, 2 mediastinal chest tubes, right pleural chest tube in place, with small amount of sanguinous output in the Pleur-evacs, no air leak, epicardial wires connected to external pacemaker with a backup mode, intrinsic rhythm was sinus rhythm with rate is 74 BPM LUNGS: Equal air entry with diminished breath sounds at the bases CVS: Regular rate and rhythm, normal S1 and S2, no gallops, no murmurs, no rubs ABDOMEN: Soft, nontender. No hepatosplenomegaly, normal bowel sounds, no guarding or rigidity. EXTREMITIES: No clubbing, no edema, no cyanosis, 2+ pulses and upper and lower extremities. Right lower extremity site is wrapped with Dov wraps, SCDs on bilateral lower extremities MUSCULOSKELETAL: Muscle strength and tone normal. SPINE: No scoliosis or deformity SKIN: No rashes CENTRAL NERVOUS SYSTEM: No focal deficits, tone is normal in all 4 extremities. - Labs CBC & Chem 7: 12/04/18 04:25 12/04/18 04:25 Labs: Abnormal Lab Results - Last 24 Hours (Table) 12/02/18 12/03/18 12/03/18 Range/Units 13:57 08:11 10:34 RBC (4.30-5.90) m/uL Hgb (13.0-17.5) gm/dL Hct (39.0-53.0) % MCV (80.0-100.0) fL Plt Count (150-450) k/uL ABG Lactic Acid 2.9 H* (0.5-1.6) mmol/L Chloride (98-107) mmol/L BUN (9-20) mg/dL Glucose (74-99) mg/dL POC Glucose (mg/dL) 144 H 136 H (75-99) mg/dL Calcium (8.4-10.2) mg/dL Magnesium (1.6-2.3) mg/dL AST (17-59) U/L Total Protein (6.3-8.2) g/dL Albumin (3.5-5.0) g/dL 12/03/18 12/03/18 12/03/18 Range/Units 11:01 11:55 13:51 RBC (4.30-5.90) m/uL Hgb (13.0-17.5) gm/dL Hct (39.0-53.0) % MCV (80.0-100.0) fL Plt Count (150-450) k/uL ABG Lactic Acid (0.5-1.6) mmol/L Chloride (98-107) mmol/L BUN (9-20) mg/dL Glucose (74-99) mg/dL POC Glucose (mg/dL) 134 H 130 H 170 H (75-99) mg/dL Calcium (8.4-10.2) mg/dL Magnesium (1.6-2.3) mg/dL AST (17-59) U/L Total Protein (6.3-8.2) g/dL Albumin (3.5-5.0) g/dL 12/03/18 12/03/18 12/03/18 Range/Units 14:25 15:58 17:12 RBC (4.30-5.90) m/uL Hgb (13.0-17.5) gm/dL Hct (39.0-53.0) % MCV (80.0-100.0) fL Plt Count (150-450) k/uL ABG Lactic Acid (0.5-1.6) mmol/L Chloride (98-107) mmol/L BUN (9-20) mg/dL Glucose (74-99) mg/dL POC Glucose (mg/dL) 160 H 150 H 134 H (75-99) mg/dL Calcium (8.4-10.2) mg/dL Magnesium (1.6-2.3) mg/dL AST (17-59) U/L Total Protein (6.3-8.2) g/dL Albumin (3.5-5.0) g/dL 12/03/18 12/03/18 12/03/18 Range/Units 18:51 20:04 22:11 RBC (4.30-5.90) m/uL Hgb (13.0-17.5) gm/dL Hct (39.0-53.0) % MCV (80.0-100.0) fL Plt Count (150-450) k/uL ABG Lactic Acid (0.5-1.6) mmol/L Chloride (98-107) mmol/L BUN (9-20) mg/dL Glucose (74-99) mg/dL POC Glucose (mg/dL) 127 H 140 H 119 H (75-99) mg/dL Calcium (8.4-10.2) mg/dL Magnesium (1.6-2.3) mg/dL AST (17-59) U/L Total Protein (6.3-8.2) g/dL Albumin (3.5-5.0) g/dL 12/03/18 12/04/18 12/04/18 Range/Units 23:12 00:24 01:07 RBC (4.30-5.90) m/uL Hgb (13.0-17.5) gm/dL Hct (39.0-53.0) % MCV (80.0-100.0) fL Plt Count (150-450) k/uL ABG Lactic Acid (0.5-1.6) mmol/L Chloride (98-107) mmol/L BUN (9-20) mg/dL Glucose (74-99) mg/dL POC Glucose (mg/dL) 115 H 109 H 126 H (75-99) mg/dL Calcium (8.4-10.2) mg/dL Magnesium (1.6-2.3) mg/dL AST (17-59) U/L Total Protein (6.3-8.2) g/dL Albumin (3.5-5.0) g/dL 12/04/18 12/04/18 12/04/18 Range/Units 02:59 04:25 04:25 RBC 2.23 L (4.30-5.90) m/uL Hgb 7.7 L (13.0-17.5) gm/dL Hct 22.6 L (39.0-53.0) % MCV 101.4 H (80.0-100.0) fL Plt Count 93 L (150-450) k/uL ABG Lactic Acid (0.5-1.6) mmol/L Chloride 109 H (98-107) mmol/L BUN 24 H (9-20) mg/dL Glucose 122 H (74-99) mg/dL POC Glucose (mg/dL) 129 H (75-99) mg/dL Calcium 8.0 L (8.4-10.2) mg/dL Magnesium 2.5 H (1.6-2.3) mg/dL AST 126 H (17-59) U/L Total Protein 4.4 L (6.3-8.2) g/dL Albumin 2.6 L (3.5-5.0) g/dL 12/04/18 12/04/18 12/04/18 Range/Units 04:27 05:54 06:56 RBC (4.30-5.90) m/uL Hgb (13.0-17.5) gm/dL Hct (39.0-53.0) % MCV (80.0-100.0) fL Plt Count (150-450) k/uL ABG Lactic Acid (0.5-1.6) mmol/L Chloride (98-107) mmol/L BUN (9-20) mg/dL Glucose (74-99) mg/dL POC Glucose (mg/dL) 136 H 126 H 132 H (75-99) mg/dL Calcium (8.4-10.2) mg/dL Magnesium (1.6-2.3) mg/dL AST (17-59) U/L Total Protein (6.3-8.2) g/dL Albumin (3.5-5.0) g/dL Assessment and Plan Plan: Assessment: #1. Severe symptomatic aortic valve stenosis and coronary artery disease, status post aortic valve replacement and one-vessel bypass, SVG to the RCA,post op day 2 #2. Postoperative ventilator management, he was successfully extubated last night on 12/02/2018 at 2130, tolerated extubation quite well, on 3 L per nasal cannula #3. Postop blood loss anemia, and expected outcome of bypass surgery, and aortic valve replacement surgery #4. Diabetes mellitus with diabetic neuropathy #5. Hypertension, hyperlipidemia #6. Morbid obesity #7. Osteoarthritis #8. Release episodes of pneumonia #9. Postoperative infections owing left total hip arthroplasty, and right total hip arthroplasty,requiring IV antibiotic infusions maintenance dose of oral doxycycline Plan: Continue urging deep breathing and coughing, incentive spirometry use. Vital signs are stable, chest x-ray has been reviewed, showed left basilar atelectasis , and mild pulmonary vascular congestion. Encourage ambulation, labs have been reviewed, continue to follow I performed a history & physical examination of the patient and discussed their management with my nurse practitioner, Niurka Read. I reviewed the nurse practitioner's note and agree with the documented findings and plan of care. Lung sounds are clear breath sounds The findings and the impression was discussed with the patient. I attest to the documentation by the nurse practitioner. Time with Patient: Less than 30
[2018-12-04] MEDS: ATORVASTATIN 40 MG TAB PO SCH (08:50)
[2018-12-04] MEDS: PREGABALIN 100 MG CAP PO SCH ×2 (08:50→21:37)
[2018-12-04] MEDS: CITALOPRAM HYDROBROMIDE 20 MG TAB PO SCH (08:50)
[2018-12-04] MEDS: CLOPIDOGREL 75 MG TAB PO SCH (08:50)
[2018-12-04] MEDS: hydrALAZINE HCL 25 MG TAB PO SCH ×2 (08:50→21:36)
[2018-12-04] MEDS: ASPIRIN 325 MG TAB PO SCH (08:50)
[2018-12-04] MEDS: METOPROLOL TARTRATE 25 MG TAB PO SCH ×2 (08:51→18:52)
[2018-12-04] MEDS: valACYclovir 500 MG TAB PO SCH (08:51)
[2018-12-04] MEDS: DOXYCYCLINE 100 MG CAP PO SCH ×2 (08:51→21:36)
[2018-12-04] MEDS: MUPIROCIN 2% OINT 22 GM TUBE NASAL SCH ×2 (08:52→21:37)
--- NOTE | 2018-12-04 08:57 | XR ---
EXAMINATION TYPE: XR chest 1V portable DATE OF EXAM: 12/04/2018 COMPARISON: 12/03/2018 HISTORY: Post cardiac surgery TECHNIQUE: Single frontal view of the chest is obtained. FINDINGS: Patient is post median sternotomy. Endotracheal tube and NG tube have been removed. Median sternal drains, right chest tube, right jugular sheath noted. Olaton-Jacinto catheter has been removed. N o evident pneumothorax. Retrocardiac density persists, the left hemidiaphragm is obscured. Aorta is d ense. Heart size is stable. There are cardiac leads. Small left pleural effusion suspected with tiny right effusion and basilar subsegmental consolidation. Arthropathy of the shoulders IMPRESSION: 1. Postsurgical changes with no sizable pneumothorax there is bilateral infiltrate and small effusion greater on the left. Mild central venous congestion not excluded. Findings are similar to the prior exam. 2. Interval removal of Olaton-Jacinto catheter.
[2018-12-04 09:10] LABS: Glucose,Whole Blood 219 mg/dL (75-99)
[2018-12-04] MEDS: INSULIN REGULAR 100 UNIT in SODIUM CHLORIDE 0.9% 100 ML IV SCH (10:08)
[2018-12-04 10:10] LABS: Glucose,Whole Blood 206 mg/dL (75-99)
[2018-12-04] MEDS: LACTATED RINGERS 1,000 ML IV SCH (10:10)
[2018-12-04 11:17] LABS: Glucose,Whole Blood 170 mg/dL (75-99)
--- NOTE | 2018-12-04 11:54 | P.PN ---
Subjective Progress Note Date: 12/04/18 Principal diagnosis: Severe aortic valve stenosis, coronary artery disease, history of hypertension, hyperlipidemia, family history of coronary artery disease, diabetes mellitus with neuropathy and a preoperative hemoglobin A1c 6.3%, previous tobacco dependence, moderate COPD with preoperative FEV1 56% of predicted, morbid obesity with a BMI of 42.7 kg/m, rare EtOH use, depression, shingles, history of basal cell skin carcinoma diagnosed in 2016 and 2017, osteoarthritis, both right and left hip replacements with postoperative infections and subsequent IV antibiotics managed by per Dr. Ricci from infectious disease. POD #2 aortic valve replacement using 23 mm Pelaez magna ease bioprosthetic valve. Coronary artery bypass grafting 1 vessel, a reverse greater saphenous vein graft to the right coronary artery. Endoscopic vein harvest, right greater saphenous vein. Epi-aortic ultrasound. Intraoperative transesophageal echocardiogram. Closure of the sternum using [place] cable system. Postoperative acute blood loss anemia, an expected outcome of surgery secondary to cardiopulmonary bypass pump and hemodilution. The patient's currently sitting up in a recliner in no acute distress. Currently he denies any complaints of pain or shortness of breath. He is hemodynamically stable. He is complaining of generalized weakness. Oxygen saturations are 96% on 2 L nasal cannula and he is achieving 1000 mL on his incentive spirometry. He is tolerating oral intake. Bedside nurse reports that he was quite weak in his legs standing up this a.m. to get into the bedside chair. Objective - Vital Signs Vital signs: Vital Signs Temp 99.7 F H 12/04/18 04:45 Pulse 80 12/04/18 08:00 Resp 10 L 12/04/18 08:00 BP 82/38 12/03/18 22:15 Pulse Ox 97 12/04/18 08:00 Intake & Output 12/03/18 12/04/18 12/04/18 18:59 06:59 18:59 Intake Total 1016.006 850.199 41.234 Output Total 762 678 130 Balance 254.006 172.199 -88.766 Weight 134.9 kg Intake: IV 908.0 602 26 ACETAMINOPHEN IV (For NPO 200 ) 1,000 mg In Empty Bag 1 bag @ 400 mls/hr IVPB Q6HR [facility] Rx#:[id number] Co/CI 20 Lactated Ringers 1,000 ml 510 510 20 @ 20 mls/hr IV .Q24H [facility] Rx#:[id number] Nitroglycerin-D5w Pmx 50 3.0 mg In Dextrose/Water 1 250ml.bag @ Per Protocol IV ONCE ONE Rx#:[id number] PRESSURE BAGS 75 42 6 ceFAZolin 3 gm In Sodium 100 Chloride 0.9% 100 ml @ 100 mls/hr IVPB Q8HR [facility] Rx#:[id number] ceFAZolin 3 gm In Sodium 50 Chloride 0.9% 50 ml @ 50 mls/hr IVPB Q8HR [facility] Rx#: [id number] Intake, IV Titration 108.006 68.199 15.234 Amount Clevidipine Butyrate 25 48.667 mg In Empty Bag 1 bag @ 1 MG/HR 2 mls/hr IV .Q24H [facility] Rx#:[id number] Insulin Regular 100 unit 59.339 68.199 15.234 In Sodium Chloride 0.9% 100 ml @ Per Protocol IV .Q0M [facility] Rx#:[id number] Oral 180 Output: Chest Tube Drainage 242 130 30 Mediastinal x 2 130 30 10 RIGHT PLEURAL 112 100 20 Urine 520 548 100 Other: Voiding Method Indwelling Catheter Indwelling Catheter ABP, PAP, CO, CI - Last Documented Arterial Blood Pressure 160/45 Pulmonary Artery Pressure 25/17 Cardiac Output 5.9 Cardiac Index 2.4 - Constitutional General appearance: Present: cooperative, morbidly obese, no acute distress - Respiratory Details: Lungs sounds essentially clear throughout, diminished to his bilateral bases. Respirations are symmetrical and nonlabored. Oxygen saturation are 96% on 2 L nasal cannula. He is achieving a 1000 mL on his incentive spirometry. Mediastinal and right pleural chest tubes remain in place to low continuous wall suction -20 cm H2O. No air leaks present. Draining thin serosanguineous drainage. Mediastinal strain to 30 mL output in the last 8 hours, 250 mL output in 24 hours. Right pleural chest tube drained 90 mL output in the last 8 hours, 170 mL output in the last 24 hours. - Cardiovascular Details: Regular rhythm and rate. S1 and S2 present, negative for S3, gallop or murmur. Sternum is stable. Bedside telemetry showing normal sinus rhythm heart rate 74. Right IJ cordis remains in place with continuous CVP monitoring, current CVP pressures 10 mmHg. Left radial arterial line in place and functioning. Atrial and ventricular epicardial pacemaker wires in place and connected to the Pacemaker generator the VVI mode of 50 BPM. +1 edema to his bilateral lower extremities. Knee-high AVE hose and sequential compression devices in place to his bilateral lower extremities. Heart hugger is in place and he is demonstrating appropriate use with encouragement. - Gastrointestinal Gastrointestinal Comment(s): Abdomen is soft, nontender and nondistended. Hypoactive bowel sounds all 4 abdominal quadrants. Tolerating oral intake. No guarding or rigidity. No organomegaly. Obese. - Genitourinary Genitourinary Comment(s): Leonard catheter for accurate I&O. Draining clear sadiq urine. 305 mL output in the last 8 hours. - Integumentary Integumentary Comment(s): Skin is warm and dry. No clubbing or cyanosis present. Midline sternal incision is clean, dry and approximated. No drainage or redness is present. Gauze dressing is clean, dry and intact. Right lower extremity EVH sites clean , dry and approximated. No drainage or redness present. - Neurologic Neurologic: Present: CNII-XII intact - Musculoskeletal Musculoskeletal: Present: generalized weakness, strength equal bilaterally - Psychiatric Psychiatric: Present: A&O x's 3, appropriate affect, intact judgment & insight - Allied health notes Allied health notes reviewed: nursing - Labs CBC & Chem 7: 12/04/18 04:25 12/04/18 04:25 Labs: Abnormal Lab Results - Last 24 Hours (Table) 12/03/18 12/03/18 12/03/18 Range/Units 10:34 11:01 11:55 RBC (4.30-5.90) m/uL Hgb (13.0-17.5) gm/dL Hct (39.0-53.0) % MCV (80.0-100.0) fL Plt Count (150-450) k/uL Chloride (98-107) mmol/L BUN (9-20) mg/dL Glucose (74-99) mg/dL POC Glucose (mg/dL) 136 H 134 H 130 H (75-99) mg/dL Calcium (8.4-10.2) mg/dL Magnesium (1.6-2.3) mg/dL AST (17-59) U/L Total Protein (6.3-8.2) g/dL Albumin (3.5-5.0) g/dL 12/03/18 12/03/18 12/03/18 Range/Units 13:51 14:25 15:58 RBC (4.30-5.90) m/uL Hgb (13.0-17.5) gm/dL Hct (39.0-53.0) % MCV (80.0-100.0) fL Plt Count (150-450) k/uL Chloride (98-107) mmol/L BUN (9-20) mg/dL Glucose (74-99) mg/dL POC Glucose (mg/dL) 170 H 160 H 150 H (75-99) mg/dL Calcium (8.4-10.2) mg/dL Magnesium (1.6-2.3) mg/dL AST (17-59) U/L Total Protein (6.3-8.2) g/dL Albumin (3.5-5.0) g/dL 12/03/18 12/03/18 12/03/18 Range/Units 17:12 18:51 20:04 RBC (4.30-5.90) m/uL Hgb (13.0-17.5) gm/dL Hct (39.0-53.0) % MCV (80.0-100.0) fL Plt Count (150-450) k/uL Chloride (98-107) mmol/L BUN (9-20) mg/dL Glucose (74-99) mg/dL POC Glucose (mg/dL) 134 H 127 H 140 H (75-99) mg/dL Calcium (8.4-10.2) mg/dL Magnesium (1.6-2.3) mg/dL AST (17-59) U/L Total Protein (6.3-8.2) g/dL Albumin (3.5-5.0) g/dL 12/03/18 12/03/18 12/04/18 Range/Units 22:11 23:12 00:24 RBC (4.30-5.90) m/uL Hgb (13.0-17.5) gm/dL Hct (39.0-53.0) % MCV (80.0-100.0) fL Plt Count (150-450) k/uL Chloride (98-107) mmol/L BUN (9-20) mg/dL Glucose (74-99) mg/dL POC Glucose (mg/dL) 119 H 115 H 109 H (75-99) mg/dL Calcium (8.4-10.2) mg/dL Magnesium (1.6-2.3) mg/dL AST (17-59) U/L Total Protein (6.3-8.2) g/dL Albumin (3.5-5.0) g/dL 12/04/18 12/04/18 12/04/18 Range/Units 01:07 02:59 04:25 RBC (4.30-5.90) m/uL Hgb (13.0-17.5) gm/dL Hct (39.0-53.0) % MCV (80.0-100.0) fL Plt Count (150-450) k/uL Chloride 109 H (98-107) mmol/L BUN 24 H (9-20) mg/dL Glucose 122 H (74-99) mg/dL POC Glucose (mg/dL) 126 H 129 H (75-99) mg/dL Calcium 8.0 L (8.4-10.2) mg/dL Magnesium 2.5 H (1.6-2.3) mg/dL AST 126 H (17-59) U/L Total Protein 4.4 L (6.3-8.2) g/dL Albumin 2.6 L (3.5-5.0) g/dL 12/04/18 12/04/18 12/04/18 Range/Units 04:25 04:27 05:54 RBC 2.23 L (4.30-5.90) m/uL Hgb 7.7 L (13.0-17.5) gm/dL Hct 22.6 L (39.0-53.0) % MCV 101.4 H (80.0-100.0) fL Plt Count 93 L (150-450) k/uL Chloride (98-107) mmol/L BUN (9-20) mg/dL Glucose (74-99) mg/dL POC Glucose (mg/dL) 136 H 126 H (75-99) mg/dL Calcium (8.4-10.2) mg/dL Magnesium (1.6-2.3) mg/dL AST (17-59) U/L Total Protein (6.3-8.2) g/dL Albumin (3.5-5.0) g/dL 12/04/18 Range/Units 06:56 RBC (4.30-5.90) m/uL Hgb (13.0-17.5) gm/dL Hct (39.0-53.0) % MCV (80.0-100.0) fL Plt Count (150-450) k/uL Chloride (98-107) mmol/L BUN (9-20) mg/dL Glucose (74-99) mg/dL POC Glucose (mg/dL) 132 H (75-99) mg/dL Calcium (8.4-10.2) mg/dL Magnesium (1.6-2.3) mg/dL AST (17-59) U/L Total Protein (6.3-8.2) g/dL Albumin (3.5-5.0) g/dL - Imaging and Cardiology Chest x-ray: report reviewed, image reviewed Assessment and Plan (1) Aortic stenosis Current Visit: Yes Status: Chronic Code(s): I35.0 - NONRHEUMATIC AORTIC ( VALVE) STENOSIS SNOMED Code(s): 78817296 (2) COPD (chronic obstructive pulmonary disease) Current Visit: Yes Status: Chronic Code(s): J44.9 - CHRONIC OBSTRUCTIVE PULMONARY DISEASE, UNSPECIFIED SNOMED Code(s): 12842217 (3) Coronary artery disease Current Visit: Yes Status: Chronic Code(s): I25.10 - ATHSCL HEART DISEASE OF [place] CORONARY ARTERY W/O ANG PCTRS SNOMED Code(s): 60513464 (4) Diabetes mellitus Current Visit: Yes Status: Chronic Code(s): E11.9 - TYPE 2 DIABETES MELLITUS WITHOUT COMPLICATIONS SNOMED Code(s): 29249377 (5) Family history of coronary artery disease Current Visit: Yes Status: Chronic Code(s): Z82.49 - FAMILY HX OF ISCHEM HEART DIS AND OTH DIS OF THE [facility] SYS SNOMED Code(s): 740023758 (6) Hyperlipidemia Current Visit: Yes Status: Chronic Code(s): E78.5 - HYPERLIPIDEMIA, UNSPECIFIED SNOMED Code(s): 81012673 (7) Hypertension Current Visit: Yes Status: Chronic Code(s): I10 - ESSENTIAL (PRIMARY) HYPERTENSION SNOMED Code(s): 46708532 (8) Morbid obesity Current Visit: Yes Status: Chronic Code(s): E66.01 - MORBID (SEVERE) OBESITY DUE TO EXCESS CALORIES SNOMED Code(s): 146630758 (9) Osteoarthritis Current Visit: Yes Status: Chronic Code(s): M19.90 - UNSPECIFIED OSTEOARTHRITIS, UNSPECIFIED SITE SNOMED Code(s): 016703515 (10) Tobacco dependence in remission Current Visit: No Status: Resolved Code(s): F17.201 - NICOTINE DEPENDENCE, UNSPECIFIED, IN REMISSION SNOMED Code(s): 889936006 Plan: 1. Continue aspirin, statin, Plavix and, beta paul. Will increase beta paul date as tolerated. 2. Wean O2 as tolerated. Encourage incentive spirometry is 10 times every hour while awake. Encourage continued smoking cessation. 3. Increase activity. Encourage ambulation. PT/OT/cardiac rehab following. 4. Discontinue right IJ Cordis.. 5. Discontinue mediastinal chest tubes, keep right pleural chest tube in place to low continuous wall suction -20 cm H2O. 6. Monitor daily labs and x-rays. Electrolyte replacement per protocol. 7. Pain control with current medication regimen. 8. Bronchodilators management per pulmonology. 9. GI prophylaxis with Protonix, DVT prophylaxis with subcu heparin, SCDs. 10. Continue daily doxycycline, patient is on lifetime antibiotics per Dr. Ricci for postoperative infections after hip surgeries. 11. Insulin management per primary care service. 12. More recommendations to follow based on patient's clinical course. Time with Patient: Greater than 30
--- NOTE | 2018-12-04 11:59 | P.PN ---
Subjective Progress Note Date: 12/04/18 68-year-old male one of Dr. Graham patient with past medical history of aortic stenosis, hypertension, hyperlipidemia, history of diabetes, severe GERD chronic edema mild depression who has been experiencing exertional dyspnea over the last 6 month without any syncopal episode denies any chest pain. Patient subsequently seen cardiology transesophageal echocardiogram and heart catheter revealed severe calcified aortic valve stenosis with severe restriction also patient had trace mitral regurgitation. 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 Patient was seen pulmonary PFT performed and showed mild obstructive lung disease patient ended up being hospitalized for elective surgery today successfully and ended up having one-vessel coronary artery bypass saphenous to the RCA and aortic valve replacement using bioprosthetic valve. Patient was admitted to the intensive care unit still on mechanical ventilation still on induced coma this point chest tube is in place. 12/03: Patient is extubated sitting in the chair doing well still have soreness and discomfort from the incision site, blood sugar is in the low 100 still on insulin drip close to 4.5 units an hour. Patient respiratory status is much better so far. No arrhythmia or A. fib. 12/04: Patient remains in the intensive care unit. This morning's blood sugars are running high and he will be started on home insulins but at a lower dose. Lantus will be at 40 units at bedtime tonight and insulin drip will be discontinued, NovoLog 12 units scheduled with meals and scale. Patient has been seen by Dr. Ricci with recommendations to continue his normal dose of chronic antibiotics. Review of system: CONSTITUTIONAL: Obese no acute respiratory distress. EYES: No icterus sclerae, no conjunctivitis. EARS, NOSE, MOUTH, THROAT, and FACE: No sore throat, lymphadenopathy, carotid bruits or deformity. RESPIRATORY: No SOB cough or wheezes. Still have chest wall pain from the surgical incision CARDIOVASCULAR: Positive CP, no Palpitation, denies PND, Orthopnea, or angina. GASTROINTESTINAL: No Abd pain, Nausea or vomiting, no Diarrhea or constipation, No GI Bleed, no distention or masses. GENITOURINARY: Negative for Hematuria or UTI, no kidney stones. INTEGUMENT/BREAST: Negative for any muscular injury with mild osteoarthritis.. HEMATOLOGIC/LYMPHATIC: Negative for bleed or purpura. MUSCULOSKELTAL: Negative for Myalgia or arthralgia. NEURLOGICAL: No LOC, Sz or syncope, blurred vision dizziness or abnormality.. BEHAVIORAL/PSYCH: Negative. ENDOCRINE: Negative. Objective - Vital Signs Vital signs: Vital Signs Temp 99.7 F H 12/04/18 04:45 Pulse 76 12/04/18 07:51 Resp 15 12/04/18 07:30 BP 82/38 12/03/18 22:15 Pulse Ox 98 12/04/18 07:30 Intake & Output 12/03/18 12/04/18 12/04/18 18:59 06:59 18:59 Intake Total 1016.006 850.199 Output Total 762 678 Balance 254.006 172.199 Weight 134.9 kg Intake: IV 908.0 602 ACETAMINOPHEN IV (For NPO 200 ) 1,000 mg In Empty Bag 1 bag @ 400 mls/hr IVPB Q6HR [facility] Rx#:[id number] Co/CI 20 Lactated Ringers 1,000 ml 510 510 @ 20 mls/hr IV .Q24H [facility] Rx#:[id number] Nitroglycerin-D5w Pmx 50 3.0 mg In Dextrose/Water 1 250ml.bag @ Per Protocol IV ONCE ONE Rx#:[id number] PRESSURE BAGS 75 42 ceFAZolin 3 gm In Sodium 100 Chloride 0.9% 100 ml @ 100 mls/hr IVPB Q8HR [facility] Rx#:[id number] ceFAZolin 3 gm In Sodium 50 Chloride 0.9% 50 ml @ 50 mls/hr IVPB Q8HR [facility] Rx#: [id number] Intake, IV Titration 108.006 68.199 Amount Clevidipine Butyrate 25 48.667 mg In Empty Bag 1 bag @ 1 MG/HR 2 mls/hr IV .Q24H [facility] Rx#:[id number] Insulin Regular 100 unit 59.339 68.199 In Sodium Chloride 0.9% 100 ml @ Per Protocol IV .Q0M [facility] Rx#:[id number] Oral 180 Output: Chest Tube Drainage 242 130 Mediastinal x 2 130 30 RIGHT PLEURAL 112 100 Urine 520 548 Other: Voiding Method Indwelling Catheter Indwelling Catheter ABP, PAP, CO, CI - Last Documented Arterial Blood Pressure 152/46 Pulmonary Artery Pressure 25/17 Cardiac Output 5.9 Cardiac Index 2.4 - Exam General Appearance: Alert, cooperative, no distress, obese sitting up in a recliner. Neck HEENT: Supple, no lymphadenopathy, no thyroid enlargement, no carotid bruits. Lungs: Decrease breath sounds left side positive fine rhonchi no crackles or wheezes. Chest Wall: Incision looks fine with mild soreness and tenderness only. Heart: Regular rate and rhythm, S1, S2 normal, no murmur, rub or gallop. Back: Symmetric, no curvature, ROM normal, no CVA tenderness. Abdomen: Soft, non-tender, bowel sounds active all four quadrants, no masses, no organomegaly. Extremities: Extremities normal, atraumatic, no cyanosis or edema. Pulses: 2+ and symmetric. Skin: Skin color, texture, tugor normal, no rashes or lesions. Neurologic: Alert oriented x3 cranial nerves II through XII intact, no motor deficit, gait not assessed. - Labs CBC & Chem 7: 12/04/18 04:25 12/04/18 04:25 Labs: Abnormal Lab Results - Last 24 Hours (Table) 12/02/18 12/03/18 12/03/18 Range/Units 13:57 08:11 10:34 RBC (4.30-5.90) m/uL Hgb (13.0-17.5) gm/dL Hct (39.0-53.0) % MCV (80.0-100.0) fL Plt Count (150-450) k/uL ABG Lactic Acid 2.9 H* (0.5-1.6) mmol/L Chloride (98-107) mmol/L BUN (9-20) mg/dL Glucose (74-99) mg/dL POC Glucose (mg/dL) 144 H 136 H (75-99) mg/dL Calcium (8.4-10.2) mg/dL Magnesium (1.6-2.3) mg/dL AST (17-59) U/L Total Protein (6.3-8.2) g/dL Albumin (3.5-5.0) g/dL 12/03/18 12/03/18 12/03/18 Range/Units 11:01 11:55 13:51 RBC (4.30-5.90) m/uL Hgb (13.0-17.5) gm/dL Hct (39.0-53.0) % MCV (80.0-100.0) fL Plt Count (150-450) k/uL ABG Lactic Acid (0.5-1.6) mmol/L Chloride (98-107) mmol/L BUN (9-20) mg/dL Glucose (74-99) mg/dL POC Glucose (mg/dL) 134 H 130 H 170 H (75-99) mg/dL Calcium (8.4-10.2) mg/dL Magnesium (1.6-2.3) mg/dL AST (17-59) U/L Total Protein (6.3-8.2) g/dL Albumin (3.5-5.0) g/dL 12/03/18 12/03/18 12/03/18 Range/Units 14:25 15:58 17:12 RBC (4.30-5.90) m/uL Hgb (13.0-17.5) gm/dL Hct (39.0-53.0) % MCV (80.0-100.0) fL Plt Count (150-450) k/uL ABG Lactic Acid (0.5-1.6) mmol/L Chloride (98-107) mmol/L BUN (9-20) mg/dL Glucose (74-99) mg/dL POC Glucose (mg/dL) 160 H 150 H 134 H (75-99) mg/dL Calcium (8.4-10.2) mg/dL Magnesium (1.6-2.3) mg/dL AST (17-59) U/L Total Protein (6.3-8.2) g/dL Albumin (3.5-5.0) g/dL 12/03/18 12/03/18 12/03/18 Range/Units 18:51 20:04 22:11 RBC (4.30-5.90) m/uL Hgb (13.0-17.5) gm/dL Hct (39.0-53.0) % MCV (80.0-100.0) fL Plt Count (150-450) k/uL ABG Lactic Acid (0.5-1.6) mmol/L Chloride (98-107) mmol/L BUN (9-20) mg/dL Glucose (74-99) mg/dL POC Glucose (mg/dL) 127 H 140 H 119 H (75-99) mg/dL Calcium (8.4-10.2) mg/dL Magnesium (1.6-2.3) mg/dL AST (17-59) U/L Total Protein (6.3-8.2) g/dL Albumin (3.5-5.0) g/dL 12/03/18 12/04/18 12/04/18 Range/Units 23:12 00:24 01:07 RBC (4.30-5.90) m/uL Hgb (13.0-17.5) gm/dL Hct (39.0-53.0) % MCV (80.0-100.0) fL Plt Count (150-450) k/uL ABG Lactic Acid (0.5-1.6) mmol/L Chloride (98-107) mmol/L BUN (9-20) mg/dL Glucose (74-99) mg/dL POC Glucose (mg/dL) 115 H 109 H 126 H (75-99) mg/dL Calcium (8.4-10.2) mg/dL Magnesium (1.6-2.3) mg/dL AST (17-59) U/L Total Protein (6.3-8.2) g/dL Albumin (3.5-5.0) g/dL 12/04/18 12/04/18 12/04/18 Range/Units 02:59 04:25 04:25 RBC 2.23 L (4.30-5.90) m/uL Hgb 7.7 L (13.0-17.5) gm/dL Hct 22.6 L (39.0-53.0) % MCV 101.4 H (80.0-100.0) fL Plt Count 93 L (150-450) k/uL ABG Lactic Acid (0.5-1.6) mmol/L Chloride 109 H (98-107) mmol/L BUN 24 H (9-20) mg/dL Glucose 122 H (74-99) mg/dL POC Glucose (mg/dL) 129 H (75-99) mg/dL Calcium 8.0 L (8.4-10.2) mg/dL Magnesium 2.5 H (1.6-2.3) mg/dL AST 126 H (17-59) U/L Total Protein 4.4 L (6.3-8.2) g/dL Albumin 2.6 L (3.5-5.0) g/dL 12/04/18 12/04/18 12/04/18 Range/Units 04:27 05:54 06:56 RBC (4.30-5.90) m/uL Hgb (13.0-17.5) gm/dL Hct (39.0-53.0) % MCV (80.0-100.0) fL Plt Count (150-450) k/uL ABG Lactic Acid (0.5-1.6) mmol/L Chloride (98-107) mmol/L BUN (9-20) mg/dL Glucose (74-99) mg/dL POC Glucose (mg/dL) 136 H 126 H 132 H (75-99) mg/dL Calcium (8.4-10.2) mg/dL Magnesium (1.6-2.3) mg/dL AST (17-59) U/L Total Protein (6.3-8.2) g/dL Albumin (3.5-5.0) g/dL Assessment and Plan Plan: 1 post aortic valve placement for severe calcified aortic valve stenosis patient had bioprosthetic valve successful surgery, post surgery patient is up in the chair. 2 post one-vessel bypass surgery with saphenous to the RCA: Stable and doing well as well continue post open heart surgery care continue to watch patient in within a week status still have chest tube watch for any A. fib still on mechanical ventilation been watch by intensive care Dr. Granda. 3 diabetes mellitus type II, insulin requiring: Insulin drip will be transitioned to Lantus, scheduled NovoLog and NovoLog scale before meals and at bedtime. 4 arrhythmia: Patient was on amiodarone drip prophylaxis he is not in A. fib today. 5 hyperlipidemia: Remain on atorvastatin 40 mg daily. 6 stage II chronic kidney disease: Daily lab and continue hydration. 7 mild abnormal liver function test: Which most likely hypoperfusion post surgery. 8 hypertension: Patient was started on hydralazine was using at home along with metoprolol resume both medication. 9 chronic pain syndrome: Patient will be back on his oral hydrocodone and tramadol. 10 GI prophylaxis: Patient remain on pantoprazole. 11. Acute blood loss anemia, expected with surgery. Discharge plan: To be determined Impression and plan of care have been directed as dictated by the signing physician. Brynana Coker nurse practitioner acting as scribe for signing physician.
[2018-12-04 13:02] LABS: Glucose,Whole Blood 132 mg/dL (75-99)
[2018-12-04] MEDS: INSULIN ASPART 100 UNIT/ML 1 ML 10 ML VIAL SQ SCH ×2 (13:02→17:59)
[2018-12-04] MEDS: CHOLECALCIFEROL 1,000 UNIT TAB PO SCH (13:02)
--- NOTE | 2018-12-04 13:30 | P.CONS ---
History of Present Illness - Reason for Consult Consult date: 12/04/18 - Chief Complaint Cardiovascular surgery - History of Present Illness 68-year-old male who has a history of prior infection related to his orthopedic procedures to his hips. He has been on a chronic suppressive antibiotic therapy with doxycycline that he has been tolerating quite well. He however was having difficulties with worsening exertional dyspnea and was evaluated. There is evidence of severe aortic stenosis as well as right coronary artery disease. The patient has not been taking the operating room and his bioprosthetic aortic valve replacement occurred in the single-vessel saphenous vein graft to the right coronary artery has occurred. The patient is in the intensive care unit he is extubated and they have placed him in the chair. Other than discomfort from the surgery he is feeling relatively well. He still has a distinct narcotic effect to his speech. He recognizes the observer without difficulties. Review of Systems HEENT:Denies headache or acute visual change. Denies sinus or mouth discomforts. Denies neck stiffness or pain. Denies significant oral cavity pain. Denies difficulty on swallowing. Lungs: Denies shortness of breath at rest Cardiovascular: Denies substernal chest pain but does have discomfort of the chest wall from the recent surgical intervention and the tubes in place. Denies dizziness Gastrointestinal:Denies nausea, vomiting, diarrhea, constipation, hematemesis, melena, hematochezia. No no significant change of bowel habit noticed. Musculoskeletal: denies significant myalgias or arthralgias. No new joint swelling. Denies new back pain. Skin: Denies new rash or lesions. No new ulcers or wounds are related.. Neuro: Denies headache or visual change. Denies any new onset weakness or difficulty with ambulation. Denies falls or seizures. Psychiatric:Denies anxiety or depression. Endocrine: Denies significant fatigue, denies significant weight loss or weight gain. Past Medical History Past Medical History: Coronary Artery Disease (CAD), Chest Pain / Angina, Diabetes Mellitus, Hyperlipidemia, Hypertension, Osteoarthritis (OA), Pneumonia Additional Past Medical History / Comment(s): SOB, pain mid back, MURMUR, HX OF HERPES, on preventitive valtrex, DIABETIC NEUROPATHY. 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 07-25-15 .LT HIP REPLACEMENT. ADMITTED WITH INC CELLULITIS LT HIP, one-vessel coronary artery bypass saphenous to the RCA and aortic valve replacement using bioprosthetic valve Past Anesthesia/Blood Transfusion Reactions: No Reported Reaction Additional Past Anesthesia/Blood Transfusion Reaction / Comm: Pt has received blood transfusion without reaction. Additional Psychological History / Comment(s): and lives with family home with . Retired. Stopped smoking several years ago with no history of alcohol use. experience. No international travel. No animals in the home. Smoking Status: Former smoker Additional Past Alcohol Use History / Comment(s): No cpap.Lives at home with , retired. - Past Family History Father Family Medical History: Diabetes Mellitus, Hypertension, Memory Impairment Mother Family Medical History: CVA/TIA Brother(s) Family Medical History: Diabetes Mellitus, Hyperlipidemia, Hypertension Son(s) Family Medical History: No Reported History Medications and Allergies Home Medications and Allergies Comment(s): Current Medications Albuterol/Ipratropium (Duoneb 0.5 Mg-3 Mg/3 Ml Soln) 3 ml INHALATION RT-Q2H PRN PRN Reason: Shortness Of Breath Or Wheezing Albuterol/Ipratropium (Duoneb 0.5 Mg-3 Mg/3 Ml Soln) 3 ml INHALATION RT-QID [facility] Last Admin: 12/04/18 11:13 Dose: 3 ml Aspirin (Aspirin) 325 mg PO DAILY [facility] Last Admin: 12/04/18 08:50 Dose: 325 mg Atorvastatin Calcium (Lipitor) 40 mg PO DAILY [facility] Last Admin: 12/04/18 08:50 Dose: 40 mg Benzocaine/Menthol (Cepacol Lozenge) 1 each MUCOUS MEM Q2H PRN PRN Reason: Sore Throat Bisacodyl (Dulcolax) 10 mg RECTAL DAILY PRN PRN Reason: Constipation Cholecalciferol (Vitamin D3) 1,000 unit PO DAILY@1200 [facility] Last Admin: 12/04/18 13:02 Dose: 1,000 unit Citalopram Hydrobromide (Celexa) 20 mg PO DAILY [facility] Last Admin: 12/04/18 08:50 Dose: 20 mg Clopidogrel Bisulfate (Plavix) 75 mg PO DAILY [facility] Last Admin: 12/04/18 08:50 Dose: 75 mg Doxycycline Monohydrate (Vibramycin) 100 mg PO BID [facility] Last Admin: 12/04/18 08:51 Dose: 100 mg Heparin Sodium (Porcine) (Heparin) 5,000 unit SQ Q8HR [facility] Last Admin: 12/04/18 08:51 Dose: 5,000 unit Hydralazine HCl (Apresoline) 20 mg IVP Q4HR PRN PRN Reason: Blood Pressure - High Hydralazine HCl (Apresoline) 25 mg PO BID [facility] Last Admin: 12/04/18 08:50 Dose: 25 mg Albumin Human 250 ml/ IV (Solution) 250 mls @ 250 mls/hr IVPB Q1HR PRN PRN Reason: For Volume Stop: 12/04/18 14:54 Last Admin: 12/02/18 17:56 Dose: 250 mls/hr Amiodarone HCl 150 mg/ (Dextrose/Water) 103 mls @ 618 mls/hr IV .Q10M PRN; Protocol PRN Reason: Per protocol Amiodarone HCl 450 mg/ (Dextrose/Water) 259 mls @ 34.53 mls/hr IV .Q7H31M PRN; Protocol PRN Reason: Per Protocol Calcium Chloride 1,000 mg/ (Sodium Chloride) 110 mls @ 100 mls/hr IV ONCE PRN PRN Reason: Ionized Calcium less than 4.4 Stop: 01/01/19 14:54 Clevidipine 25 mg/ IV Solution 50 mls @ 2 mls/hr IV .Q24H [facility]; Protocol Last Titration: 12/03/18 13:00 Dose: 0 mg/hr, 0 mls/hr Insulin Human Regular 100 unit (/ Sodium Chloride) 101 mls @ 0 mls/hr IV .Q0M [facility]; Protocol Last Titration: 12/04/18 12:56 Dose: 5 unit/hr, 5.05 mls/hr Lactated Ringer's (Lactated Ringers) 1,000 mls @ 20 mls/hr IV .Q24H [facility] Last Admin: 12/04/18 10:10 Dose: 20 mls/hr Insulin Aspart (Novolog) 12 unit SQ TID-W/MEALS [facility] Last Admin: 12/04/18 13:02 Dose: 12 unit Insulin Detemir (Levemir) [address] [facility] Magnesium Hydroxide (Milk Of Magnesia) 2,400 mg PO BID PRN PRN Reason: Constipation Metoclopramide HCl (Reglan) 10 mg IVP Q4H PRN PRN Reason: Nausea And Vomiting Metoprolol Tartrate (Lopressor) 25 mg PO BID [facility] Last Admin: 12/04/18 08:51 Dose: 25 mg Miscellaneous Information (Magnesium Per Protocol) 1 each MISCELLANE DAILY PRN ; Protocol PRN Reason: Per Protocol Miscellaneous Information (Phosphorus Per Protocol) 1 each MISCELLANE DAILY PRN ; Protocol PRN Reason: Per Protocol Miscellaneous Information (Potassium Per Protocol) 1 each MISCELLANE DAILY PRN ; Protocol PRN Reason: Per Protocol Mupirocin (Bactroban Oint) 1 applic NASAL BID [facility] Stop: 12/05/18 21:01 Last Admin: 12/04/18 08:52 Dose: 1 applic Ondansetron HCl (Zofran) 4 mg IVP Q6HR PRN PRN Reason: Nausea And Vomiting Last Admin: 12/03/18 05:17 Dose: 4 mg Pantoprazole Sodium (Protonix) 40 mg PO AC-BRKFST [facility] Last Admin: 12/04/18 07:35 Dose: 40 mg Pregabalin (Lyrica) 100 mg PO BID [facility] Last Admin: 12/04/18 08:50 Dose: 100 mg Senna/Docusate Sodium (Senokot-S) 2 each PO HS [facility] Last Admin: 12/03/18 21:43 Dose: 2 each Sodium Chloride (Saline Flush) 10 ml IV BID [facility] Last Admin: 12/04/18 08:52 Dose: 10 ml Tramadol HCl (Ultram) 50 mg PO QID PRN PRN Reason: Pain Last Admin: 12/04/18 04:44 Dose: 50 mg Valacyclovir HCl (Valtrex) 500 mg PO DAILY [facility] Last Admin: 12/04/18 08:51 Dose: 500 mg Home Medications Medication Instructions Recorded Confirmed Type valACYclovir HCL [Valtrex] 500 mg PO DAILY 07/18/15 12/02/18 History Aspirin EC [Ecotrin Low Dose] 81 mg PO 10/02/17 12/02/18 History Citalopram Hydrobromide [CeleXA] 20 mg PO DAILY 10/02/17 12/02/18 History hydrALAZINE HCL [Apresoline] 25 mg PO TID 10/02/17 12/02/18 History Cholecalciferol [Vitamin D3] 1,000 unit PO DAILY 11/12/18 12/02/18 History Doxycycline [Vibramycin] 100 mg PO BID 11/12/18 12/02/18 History Furosemide [Lasix] 40 mg PO DAILY 11/12/18 12/02/18 History Insulin Aspart [NovoLOG] 0 units SQ TID-W/MEALS PRN 11/12/18 12/02/18 History Insulin Aspart [NovoLOG] 27 units SQ TID-W/MEALS 11/12/18 12/02/18 History Insulin Glargine [Lantus] 80 unit SQ HS 11/12/18 12/02/18 History Meloxicam 15 mg PO DAILY 11/12/18 12/02/18 History Metoprolol Tartrate [Lopressor] 25 mg PO BID 11/12/18 12/02/18 History Omeprazole [PriLOSEC] 20 mg PO AC-BRKFST 11/12/18 12/02/18 History Pregabalin [Lyrica] 100 mg PO BID 11/12/18 12/02/18 History metFORMIN HCL [Glucophage] 500 mg PO BID 11/12/18 12/02/18 History traMADol HCL [Ultram] 50 mg PO TID PRN 11/12/18 12/02/18 History Allergies Allergy/AdvReac Type Severity Reaction Status Date / Time Penicillins Allergy Rash/Hives Verified 12/02/18 15:12 Physical Exam Vitals: Vital Signs Temp Pulse Resp BP Pulse Ox 12/04/18 13:00 71 14 99 12/04/18 12:00 98.1 F 71 14 99 12/04/18 11:23 70 12/04/18 11:13 71 12/04/18 11:00 71 18 97 12/04/18 10:00 69 16 98 12/04/18 09:00 97.5 F L 79 12 96 12/04/18 08:00 80 10 L 97 12/04/18 07:51 76 12/04/18 07:31 73 12/04/18 07:30 73 15 98 12/04/18 07:15 73 15 98 12/04/18 07:00 75 12 94 L 12/04/18 06:45 80 14 96 12/04/18 06:30 76 14 90 L 12/04/18 06:15 75 17 90 L 12/04/18 06:00 77 20 93 L 12/04/18 05:45 75 15 91 L 12/04/18 05:30 74 14 92 L 12/04/18 05:15 73 16 92 L 12/04/18 05:00 73 16 92 L 12/04/18 04:45 99.7 F H 73 16 98 12/04/18 04:30 73 14 98 12/04/18 04:15 72 18 98 12/04/18 04:00 73 18 98 12/04/18 03:45 72 14 98 12/04/18 03:30 72 16 98 12/04/18 03:15 71 14 98 12/04/18 03:00 72 16 12/04/18 02:45 71 16 99 12/04/18 02:30 71 16 97 12/04/18 02:15 72 14 98 12/04/18 02:00 71 18 98 12/04/18 01:45 71 14 98 12/04/18 01:30 71 14 97 12/04/18 01:15 71 15 95 12/04/18 01:00 71 14 99 12/04/18 00:45 71 14 98 12/04/18 00:32 70 16 98 12/04/18 00:30 99.8 F H 70 14 98 12/04/18 00:15 71 14 99 12/04/18 00:00 72 14 99 12/03/18 23:45 71 16 99 12/03/18 23:30 70 14 99 12/03/18 23:15 70 14 98 12/03/18 23:00 72 15 97 12/03/18 22:45 73 14 98 12/03/18 22:30 73 14 97 12/03/18 22:15 74 12 82/38 98 12/03/18 22:00 74 14 82/38 97 12/03/18 21:45 75 14 82/38 97 12/03/18 21:30 74 16 98 12/03/18 21:15 74 16 98 12/03/18 21:00 75 18 98 12/03/18 20:45 77 16 98 12/03/18 20:30 76 14 97 12/03/18 20:15 76 14 97 12/03/18 20:00 99.4 F 76 12 98 12/03/18 19:45 76 16 97 12/03/18 19:31 74 12/03/18 19:30 75 16 98 12/03/18 19:15 74 12 99 12/03/18 19:13 75 12/03/18 19:00 74 13 99 12/03/18 18:45 75 14 99 12/03/18 18:30 74 13 99 12/03/18 18:15 73 12 98 12/03/18 18:00 74 26 H 99 12/03/18 17:45 75 12 98 12/03/18 17:30 77 13 98 12/03/18 17:15 75 21 95 12/03/18 17:00 74 14 96 12/03/18 16:45 73 14 96 12/03/18 16:30 74 12 96 12/03/18 16:15 74 11 L 98 12/03/18 16:00 98.6 F 75 11 L 99 12/03/18 15:45 74 11 L 98 12/03/18 15:30 73 10 L 98 12/03/18 15:28 77 12/03/18 15:15 71 16 99 12/03/18 15:00 72 11 L 99 12/03/18 14:45 71 11 L 100 12/03/18 14:30 73 11 L 98 12/03/18 14:15 73 11 L 99 12/03/18 14:00 74 10 L 100 12/03/18 13:45 76 12 96 12/03/18 13:30 74 11 L 82/38 97 12/03/18 13:15 80 14 82/38 94 L Intake and Output 12/03/18 12/04/18 12/04/18 22:59 06:59 14:59 Intake Total 626.520 524.184 408.268 Output Total 327 521 355 Balance 299.520 3.184 53.268 Intake: IV 459 427 130 ACETAMINOPHEN IV (For NPO 100 ) 1,000 mg In Empty Bag 1 bag @ 400 mls/hr IVPB Q6HR [facility] Rx#:[id number] Lactated Ringers 1,000 ml 320 350 100 @ 20 mls/hr IV .Q24H [facility] Rx#:[id number] PRESSURE BAGS 39 27 30 ceFAZolin 3 gm In Sodium 50 Chloride 0.9% 50 ml @ 50 mls/hr IVPB Q8HR [facility] Rx#: [id number] Intake, IV Titration 47.520 37.184 38.268 Amount Insulin Regular 100 unit 47.520 37.184 38.268 In Sodium Chloride 0.9% 100 ml @ Per Protocol IV .Q0M [facility] Rx#:[id number] Oral 120 60 240 Output: Chest Tube Drainage 20 120 70 Mediastinal x 2 10 30 30 RIGHT PLEURAL 10 90 40 Urine 307 401 285 Other: Voiding Method Indwelling Catheter Indwelling Catheter Indwelling Catheter ABP, PAP, CO, CI - Last 8 Hours Arterial Blood Pressure 157/50 Arterial Blood Pressure 144/41 Arterial Blood Pressure 147/42 Arterial Blood Pressure 140/42 Arterial Blood Pressure 155/44 Arterial Blood Pressure 160/45 Arterial Blood Pressure 152/46 Arterial Blood Pressure 150/44 Arterial Blood Pressure 169/48 Arterial Blood Pressure 146/39 Arterial Blood Pressure 155/38 Arterial Blood Pressure 149/40 Arterial Blood Pressure 126/39 Arterial Blood Pressure 141/37 Arterial Blood Pressure 142/40 Arterial Blood Pressure 151/43 Pleasant 68-year-old gentleman status post aortic valve replacement and coronary artery bypass HEENT: Anicteric conjunctiva are pink and moist nasal mucosa grossly intact without significant lesions, there is no thrush. Neck: The neck is supple without significant lymphadenopathy or thyromegaly. Lungs: Symmetrical bilateral air entry crackles at bases Heart: Regular rate and rhythm with an audible S1-S2, no S3 no S4. No significant murmur click or rub. Chest tubes in place Abdomen: Positive bowel sounds soft and nontender without palpable masses or organomegaly. There was no guarding or rebound. Extremities: The upper extremities have excellent pulses they are symmetric, no significant petechiae or telangiectasia. No splinter hemorrhages were noted. The lower extremities are free from significant edema. The peripheral pulses were 2+ and symmetric. Neuro: Awake alert oriented to person place and time. There are no acute new gross focal sensory motor deficits. Results CBC & Chem 7: 12/04/18 04:25 12/04/18 04:25 Labs: Abnormal Lab Results - Last 24 Hours (Table) 12/03/18 12/03/18 12/03/18 Range/Units 13:51 14:25 15:58 RBC (4.30-5.90) m/uL Hgb (13.0-17.5) gm/dL Hct (39.0-53.0) % MCV (80.0-100.0) fL Plt Count (150-450) k/uL Chloride (98-107) mmol/L BUN (9-20) mg/dL Glucose (74-99) mg/dL POC Glucose (mg/dL) 170 H 160 H 150 H (75-99) mg/dL Calcium (8.4-10.2) mg/dL Magnesium (1.6-2.3) mg/dL AST (17-59) U/L Total Protein (6.3-8.2) g/dL Albumin (3.5-5.0) g/dL 12/03/18 12/03/18 12/03/18 Range/Units 17:12 18:51 20:04 RBC (4.30-5.90) m/uL Hgb (13.0-17.5) gm/dL Hct (39.0-53.0) % MCV (80.0-100.0) fL Plt Count (150-450) k/uL Chloride (98-107) mmol/L BUN (9-20) mg/dL Glucose (74-99) mg/dL POC Glucose (mg/dL) 134 H 127 H 140 H (75-99) mg/dL Calcium (8.4-10.2) mg/dL Magnesium (1.6-2.3) mg/dL AST (17-59) U/L Total Protein (6.3-8.2) g/dL Albumin (3.5-5.0) g/dL 12/03/18 12/03/18 12/04/18 Range/Units 22:11 23:12 00:24 RBC (4.30-5.90) m/uL Hgb (13.0-17.5) gm/dL Hct (39.0-53.0) % MCV (80.0-100.0) fL Plt Count (150-450) k/uL Chloride (98-107) mmol/L BUN (9-20) mg/dL Glucose (74-99) mg/dL POC Glucose (mg/dL) 119 H 115 H 109 H (75-99) mg/dL Calcium (8.4-10.2) mg/dL Magnesium (1.6-2.3) mg/dL AST (17-59) U/L Total Protein (6.3-8.2) g/dL Albumin (3.5-5.0) g/dL 12/04/18 12/04/18 12/04/18 Range/Units 01:07 02:59 04:25 RBC (4.30-5.90) m/uL Hgb (13.0-17.5) gm/dL Hct (39.0-53.0) % MCV (80.0-100.0) fL Plt Count (150-450) k/uL Chloride 109 H (98-107) mmol/L BUN 24 H (9-20) mg/dL Glucose 122 H (74-99) mg/dL POC Glucose (mg/dL) 126 H 129 H (75-99) mg/dL Calcium 8.0 L (8.4-10.2) mg/dL Magnesium 2.5 H (1.6-2.3) mg/dL AST 126 H (17-59) U/L Total Protein 4.4 L (6.3-8.2) g/dL Albumin 2.6 L (3.5-5.0) g/dL 12/04/18 12/04/18 12/04/18 Range/Units 04:25 04:27 05:54 RBC 2.23 L (4.30-5.90) m/uL Hgb 7.7 L (13.0-17.5) gm/dL Hct 22.6 L (39.0-53.0) % MCV 101.4 H (80.0-100.0) fL Plt Count 93 L (150-450) k/uL Chloride (98-107) mmol/L BUN (9-20) mg/dL Glucose (74-99) mg/dL POC Glucose (mg/dL) 136 H 126 H (75-99) mg/dL Calcium (8.4-10.2) mg/dL Magnesium (1.6-2.3) mg/dL AST (17-59) U/L Total Protein (6.3-8.2) g/dL Albumin (3.5-5.0) g/dL 01/12/04/18 12/04/18 Range/Units 06:56 08:55 10:07 RBC (4.30-5.90) m/uL Hgb (13.0-17.5) gm/dL Hct (39.0-53.0) % MCV (80.0-100.0) fL Plt Count (150-450) k/uL Chloride (98-107) mmol/L BUN (9-20) mg/dL Glucose (74-99) mg/dL POC Glucose (mg/dL) 132 H 219 H 206 H (75-99) mg/dL Calcium (8.4-10.2) mg/dL Magnesium (1.6-2.3) mg/dL AST (17-59) U/L Total Protein (6.3-8.2) g/dL Albumin (3.5-5.0) g/dL 12/04/18 12/04/18 Range/Units 11:14 12:53 RBC (4.30-5.90) m/uL Hgb (13.0-17.5) gm/dL Hct (39.0-53.0) % MCV (80.0-100.0) fL Plt Count (150-450) k/uL Chloride (98-107) mmol/L BUN (9-20) mg/dL Glucose (74-99) mg/dL POC Glucose (mg/dL) 170 H 132 H (75-99) mg/dL Calcium (8.4-10.2) mg/dL Magnesium (1.6-2.3) mg/dL AST (17-59) U/L Total Protein (6.3-8.2) g/dL Albumin (3.5-5.0) g/dL Laboratory Results WBC 8.4 k/uL (3.8-10.6) 12/04/18 04:25 RBC 2.23 m/uL (4.30-5.90) L 12/04/18 04:25 Hgb 7.7 gm/dL (13.0-17.5) L 12/04/18 04:25 Hct 22.6 % (39.0-53.0) L 12/04/18 04:25 MCV 101.4 fL (80.0-100.0) H 12/04/18 04:25 MCH 34.5 pg (25.0-35.0) 12/04/18 04:25 MCHC 34.0 g/dL (31.0-37.0) 12/04/18 04:25 RDW 15.2 % (11.5-15.5) 12/04/18 04:25 Plt Count 93 k/uL (150-450) L 12/04/18 04:25 Neutrophils % 74 % 12/04/18 04:25 Lymphocytes % 16 % 12/04/18 04:25 Monocytes % 7 % 12/04/18 04:25 Eosinophils % 1 % 12/04/18 04:25 Basophils % 0 % 12/04/18 04:25 Neutrophils # 6.2 k/uL (1.3-7.7) 12/04/18 04:25 Lymphocytes # 1.4 k/uL (1.0-4.8) 12/04/18 04:25 Monocytes # 0.6 k/uL (0-1.0) 12/04/18 04:25 Eosinophils # 0.1 k/uL (0-0.7) 12/04/18 04:25 Basophils # 0.0 k/uL (0-0.2) 12/04/18 04:25 Manual Slide Review Performed 12/04/18 04:25 Polychromasia Present 12/04/18 04:25 Poikilocytosis Slight 12/02/18 18:58 Macrocytosis Slight 12/04/18 04:25 PT 10.7 sec (9.0-12.0) 12/03/18 04:57 INR 1.0 (<1.2) 12/03/18 04:57 APTT 26.7 sec (22.0-30.0) 12/03/18 04:57 Sample Site thai 12/02/18 20:47 ABG pH 7.32 (7.35-7.45) L 12/02/18 20:47 ABG pH (Temp Correct) SURFACE [employer]ER [employer]ER 12/02/18 09:23 ABG pCO2 50 mmHg (35-45) H 12/02/18 20:47 ABG pCO2 (Temp Corrct SURFACE GR[employer]ER TENDER 12/02/18 09:23 ABG pO2 142 mmHg (83-108) H 12/02/18 20:47 ABG pO2 (Temp Correct SURFACE GRINDER TENDER 12/02/18 09:23 ABG HCO3 26 mmol/L (21-25) H 12/02/18 20:47 ABG Total CO2 28 mmol/L (19-24) H 12/02/18 20:47 ABG O2 Saturation 99.6 % (94-97) H 12/02/18 20:47 ABG Base Excess -0.1 mmol/L 12/02/18 20:47 ABG Hematocrit 29 % (34.0-46.0) L 12/02/18 13:57 Jordon Test Yes 12/02/18 20:47 ABG Sodium 142 mmol/L (135-146) 12/02/18 13:57 ABG Potassium 4.4 mmol/L (3.4-4.5) 12/02/18 13:57 ABG Ionized Calcium 4.3 mg/dL (4.5-5.3) L 12/02/18 13:57 ABG Glucose 176 mg/dL (75-99) H 12/02/18 13:57 ABG Lactic Acid 2.9 mmol/L (0.5-1.6) H* 12/02/18 13:57 Hemoglobin 9.4 gm/dL (13.0-17.5) L 12/02/18 13:57 FiO2 50 % 12/02/18 20:47 Sodium 138 mmol/L (137-145) 12/04/18 04:25 Potassium 4.7 mmol/L (3.5-5.1) 12/04/18 04:25 Chloride 109 mmol/L (98-107) H 12/04/18 04:25 Carbon Dioxide 27 mmol/L (22-30) 12/04/18 04:25 Anion Gap 2 mmol/L 12/04/18 04:25 BUN 24 mg/dL (9-20) H 12/04/18 04:25 Creatinine 1.22 mg/dL (0.66-1.25) 12/04/18 04:25 Est GFR (CKD-EPI)AfAm 69 (>60 ml/min/1.73 sqM) 12/04/18 04:25 Est GFR (CKD-EPI)NonAf 60 (>60 ml/min/1.73 sqM) 12/04/18 04:25 Glucose 122 mg/dL (74-99) H 12/04/18 04:25 POC Glucose (mg/dL) 132 mg/dL (75-99) H 12/04/18 12:53 POC Glu Correction Lieutenant ID Mone [place] 12/04/18 12:53 Calcium 8.0 mg/dL (8.4-10.2) L 12/04/18 04:25 Ionized Calcium Magan 4.8 mg/dL (4.5-5.3) 12/04/18 04:25 Phosphorus 3.2 mg/dL (2.5-4.5) 12/02/18 20:50 Magnesium 2.5 mg/dL (1.6-2.3) H 12/04/18 04:25 Total Bilirubin 0.6 mg/dL (0.2-1.3) 12/04/18 04:25 AST 126 U/L (17-59) H 12/04/18 04:25 ALT 45 U/L (21-72) 12/04/18 04:25 Alkaline Phosphatase 49 U/L (38-126) 12/04/18 04:25 Total Protein 4.4 g/dL (6.3-8.2) L 12/04/18 04:25 Albumin 2.6 g/dL (3.5-5.0) L 12/04/18 04:25 Arterial Blood Potassium 4.4 mmol/L (3.4-4.5) 12/02/18 13:57 Arterial Blood Glucose 176 mg/dL (75-99) H 12/02/18 13:57 Blood Type B Positive 12/01/18 12:52 Blood Type Recheck No 12/01/18 12:52 Antibody Screen NEGATIVE 12/01/18 12:52 Crossmatch See Detail 12/01/18 12:52 Transfuse Platelets 12/02/18 12/01/18 12:52 Spec Expiration Date 12/04/2018235112/01/18 12:52 Assessment and Plan (1) Aortic stenosis Current Visit: Yes Status: Chronic Code(s): I35.0 - NONRHEUMATIC AORTIC ( VALVE) STENOSIS SNOMED Code(s): 07977470 (2) Coronary artery disease Current Visit: Yes Status: Chronic Code(s): I25.10 - ATHSCL HEART DISEASE OF [place] CORONARY ARTERY W/O ANG PCTRS SNOMED Code(s): 48600848 (3) Personal history of infected joint Narrative/Plan: 68-year-old male presents to Hospital for elective aortic valve replacement due to his severe aortic stenosis. Also had known history of coronary artery disease and a right coronary artery bypass also occurred. He is now status post the surgical intervention is doing well. With the history of the prior joint infections he is on chronic suppressive antibiotic therapy with doxycycline should continue 100 mg orally twice per day. This is discussed with the cardiovascular team. Current Visit: Yes Status: Acute Code(s): Z87.39 - PERSONAL HISTORY OF DISEASES OF THE MS SYS AND CONN TISS SNOMED Code(s): 710400028
[2018-12-04 14:11] LABS: Glucose,Whole Blood 267 mg/dL (75-99)
[2018-12-04 15:48] LABS: Glucose,Whole Blood 198 mg/dL (75-99)
[2018-12-04 16:21] LABS: Glucose,Whole Blood 158 mg/dL (75-99)
--- NOTE | 2018-12-04 17:05 | P.PN ---
Progress Note - Text Progress Note Date: 12/04/18 Mediastinal chest tubes removed without incident. 4 x 4 gauze to cover, Vaseline impregnated gauze to cover and secured with tape.
[2018-12-04 17:28] LABS: Glucose,Whole Blood 144 mg/dL (75-99)
[2018-12-04 18:37] LABS: Glucose,Whole Blood 158 mg/dL (75-99)
[2018-12-04 20:28] LABS: Glucose,Whole Blood 143 mg/dL (75-99)
[2018-12-04] MEDS: INSULIN DETEMIR 100 UNIT/ML 10 ML VIAL SQ SCH (21:37)
[2018-12-04] MEDS: SENNOSIDES-DOCUSATE SODIUM 1 EACH TAB PO SCH (21:37)
[2018-12-04 21:44] LABS: Glucose,Whole Blood 141 mg/dL (75-99)
[2018-12-05 00:28] LABS: Glucose,Whole Blood 251 mg/dL (75-99)
--- NOTE | 2018-12-05 01:40 | CT ---
EXAMINATION TYPE: CT brain [facility]on rosen DATE OF EXAM: 12/05/2018 COMPARISON: None HISTORY: Patient fell and hit front of head. Headache. Neck pain CT DLP: 2033 mGycm Automated exposure control for dose reduction was used. TECHNIQUE: CT scan of the head and cervical spine are performed without contrast. FINDINGS: There is cerebral cortical atrophy. There is no mass effect nor midline shift. There is s mall patchy areas of hypodensity in the periventricular white matter consistent with multiple lacunar infarcts. The calvarium is intact. There is no evidence of intracranial hemorrhage. The cervical vertebra have fairly normal spacing and alignment. Posterior elements are intact. There is mild multilevel facet arthropathy. The skull base is intact. There is no evidence of cervical spin e fracture. IMPRESSION: Cerebral atrophy and chronic small vessel ischemia. No acute intracranial abnormality. Mild degenerative changes in the cervical spine. No fracture seen.
[2018-12-05] MEDS: HEPARIN SODIUM,PORCINE 5,000 UNIT/ML 1 ML VIAL SQ SCH ×3 (01:57→17:22)
[2018-12-05 02:07] LABS: Glucose,Whole Blood 274 mg/dL (75-99)
[2018-12-05 03:49] LABS: Glucose,Whole Blood 284 mg/dL (75-99)
[2018-12-05] MEDS: INSULIN ASPART 100 UNIT/ML 1 ML 10 ML VIAL SQ SCH ×8 (03:50→21:04)
--- NOTE | 2018-12-05 06:30 | P.PN ---
Subjective Progress Note Date: 12/05/18 Principal diagnosis: Status post open heart surgery This is a pleasant 68-year-old gentleman who follows with Dr. Brennan in the office as an outpatient with a past medical history significant for aortic stenosis, hypertension, dyslipidemia, and diabetes, as well as prior history of smoking and also prior history of alcohol, who was experiencing symptoms of exertional dyspnea was getting progressed for the last several months. He did also had an episode of syncope. Did not have any symptoms of chest pain or chest discomfort. He was seen and evaluated by Dr. Brennan and the patient was diagnosed with aortic stenosis. He underwent transesophageal echocardiogram which showed a trileaflet aortic valve with heavily calcified valve and evidence of severe aortic sclerosis as well as severe aortic stenosis. There was also mild MR only. Subsequently the patient underwent a heart catheterization which showed calcified left and right coronary system with severe disease involving the mid RCA. The patient underwent yesterday electively aortic valve replacement using bioprosthetic valve along with coronary artery bypass grafting 1 with SVG to RCA. On follow-up with the patient today, 12/05/2018, the patient continues to be clinically stable. He is not on any vasopressors at this point. He continues to be in normal sinus mechanism. He did have a fall last night after he was trying to get out of the bed on his own. The blood pressure is slightly elevated and I would suggest increasing the dose of metoprolol. Without have any blood work this morning nor chest x-ray this morning yet. We'll follow-up on those. He side that he continues to be on dual antiplatelet therapy along with a statin as well as metoprolol. Objective - Vital Signs Vital signs: Vital Signs Temp 98.1 F 12/05/18 04:00 Pulse 80 12/05/18 06:00 Resp 19 12/05/18 06:00 BP 161/60 12/05/18 06:00 Pulse Ox 97 12/05/18 06:00 Intake & Output 12/04/18 12/04/18 12/05/18 06:59 18:59 06:59 Intake Total 850.199 605.698 238.726 Output Total 678 790 175 Balance 172.199 -184.302 63.726 Intake: IV 602 286 106 Lactated Ringers 1,000 ml 510 220 70 @ 20 mls/hr IV .Q24H [facility] Rx#:[id number] PRESSURE BAGS 42 66 36 ceFAZolin 3 gm In Sodium 50 Chloride 0.9% 50 ml @ 50 mls/hr IVPB Q8HR [facility] Rx#: [id number] Intake, IV Titration 68.199 79.698 12.726 Amount Insulin Regular 100 unit 68.199 79.698 12.726 In Sodium Chloride 0.9% 100 ml @ Per Protocol IV .Q0M [facility] Rx#:[id number] Oral 180 240 120 Output: Chest Tube Drainage 130 240 30 Mediastinal x 2 30 60 RIGHT PLEURAL 100 180 30 Urine 548 550 145 Other: Voiding Method Indwelling Catheter Indwelling Catheter Indwelling Catheter # Voids 0 ABP, PAP, CO, CI - Last Documented Arterial Blood Pressure 120/110 Pulmonary Artery Pressure 25/17 Cardiac Output 5.9 Cardiac Index 2.4 - Constitutional General appearance: Present: no acute distress - Labs CBC & Chem 7: 12/04/18 04:25 12/04/18 04:25 Labs: Abnormal Lab Results - Last 24 Hours (Table) 12/04/18 12/04/18 12/04/18 Range/Units 06:56 08:55 10:07 POC Glucose (mg/dL) 132 H 219 H 206 H (75-99) mg/dL 12/04/18 12/04/18 12/04/18 Range/Units 11:14 12:53 14:07 POC Glucose (mg/dL) 170 H 132 H 267 H (75-99) mg/dL 12/04/18 12/04/18 12/04/18 Range/Units 15:22 16:18 17:14 POC Glucose (mg/dL) 198 H 158 H 144 H (75-99) mg/dL 12/04/18 12/04/18 12/04/18 Range/Units 18:33 20:15 21:40 POC Glucose (mg/dL) 158 H 143 H 141 H (75-99) mg/dL 12/05/18 12/05/18 12/05/18 Range/Units 00:14 01:53 03:46 POC Glucose (mg/dL) 251 H 274 H 284 H (75-99) mg/dL Assessment and Plan Assessment: Assessment #1 severe aortic stenosis and status post aortic valve replacement using bioprosthetic valve #2 severe CAD and status post SVG to RCA #3 hypertension #4 dyslipidemia #5 diabetes #6 history of smoking Plan #1 continue the current medical regimen including dual antiplatelet therapy #2 follow-up on the chest x-ray #3 follow-up on the blood work including the CBC and BMP #4 increase the dose of metoprolol #5 follow-up with the patient. Thank you for allowing us participate in his care
[2018-12-05 07:01] LABS: Glucose,Whole Blood 248 mg/dL (75-99)
[2018-12-05] MEDS: IPRATROPIUM-ALBUTEROL 3 ML NEB INHALATION SCH ×4 (07:05→20:48)
--- NOTE | 2018-12-05 07:37 | XR ---
EXAMINATION TYPE: XR chest 1V portable DATE OF EXAM: 12/05/2018 COMPARISON: Prior chest x-ray 12/04/2018 HISTORY: Status post aortic valve replacement and coronary artery bypass graft TECHNIQUE: Single frontal view of the chest is obtained. FINDINGS: Right jugular central venous sheath has been removed. Right-sided chest tube remains in pl mynor, median sternal drain no longer seen. Patient is post median sternotomy and cardiac valve replace ment. Retrocardiac density with obscured left hemidiaphragm persists. No evident pneumothorax. There are cardiac leads. Heart size is likely stable. Possible improved aeration right lung base. IMPRESSION: Probable left lower lobe atelectasis and associated effusion. Additional findings above, follow-up recommended.
[2018-12-05 08:02] LABS: Basophils % (A) 0 %; Eosinophils % (A) 0 %; HCT 21.9 % (39.0-53.0); HGB 7.2 gm/dL (13.0-17.5); Lymphocytes # (A) 1.7 k/uL (1.0-4.8); Lymphocytes % (A) 18 %; MCH 32.7 pg (25.0-35.0); MCHC 32.7 g/dL (31.0-37.0); MCV 100.2 fL (80.0-100.0); Macrocytosis Slight; Mean Platelet Volume 7.7; Monocytes # (A) 0.4 k/uL (0-1.0); Monocytes % (A) 5 %; Neutrophils % (A) 75 %; Platelet Count 127 k/uL (150-450); Poikilocytosis Slight; RBC 2.19 m/uL (4.30-5.90); RDW 15.4 % (11.5-15.5); WBC 9.3 k/uL (3.8-10.6)
[2018-12-05] MEDS ORDERED: ACETAMINOPHEN TAB 325 MG TAB PO PRN (08:14)
[2018-12-05 08:19] LABS: Albumin 2.8 g/dL (3.5-5.0); Calcium 8.2 mg/dL (8.4-10.2); Potassium 4.9 mmol/L (3.5-5.1); Total Protein 4.9 g/dL (6.3-8.2)
[2018-12-05] MEDS: ACETAMINOPHEN TAB 325 MG TAB PO PRN ×2 (08:23→13:57)
[2018-12-05] MEDS: CLOPIDOGREL 75 MG TAB PO SCH (08:24)
[2018-12-05] MEDS: hydrALAZINE HCL 25 MG TAB PO SCH ×2 (08:24→21:03)
[2018-12-05] MEDS: valACYclovir 500 MG TAB PO SCH (08:24)
[2018-12-05] MEDS: PANTOPRAZOLE 40 MG TABLET PO SCH (08:24)
[2018-12-05] MEDS: ASPIRIN 325 MG TAB PO SCH (08:24)
[2018-12-05] MEDS: ATORVASTATIN 40 MG TAB PO SCH (08:24)
[2018-12-05] MEDS: DOXYCYCLINE 100 MG CAP PO SCH ×2 (08:24→21:03)
[2018-12-05] MEDS: CITALOPRAM HYDROBROMIDE 20 MG TAB PO SCH (08:24)
[2018-12-05] MEDS: METOPROLOL TARTRATE 25 MG TAB PO SCH ×2 (08:25→21:03)
[2018-12-05] MEDS: PREGABALIN 100 MG CAP PO SCH ×2 (08:25→21:03)
--- NOTE | 2018-12-05 09:44 | P.PN ---
Subjective Progress Note Date: 12/05/18 Principal diagnosis: Severe aortic valve stenosis, coronary artery disease, status post aortic valve replacement, and one-vessel bypass grafting This is 68-year-old white male patient of Dr. Jonathan Morataya, past medical history of aortic stenosis, hypertension, hyperlipidemia, family history of coronary artery disease, diabetes mellitus with neuropathy, previous tobacco dependence, occasional EtOH use, basal cell skin carcinoma, osteoarthritis, status post right and left hip replacement, with postoperative infections wiring IV antibiotic infusions per Dr. Ricci. Patient been experiencing exertional dyspnea over the previous 4-6 months, and any syncopal episodes, denied any chest pain. Ration underwent CARMELA and left heart catheterization by Dr. Messina, and the CARMELA showed a 3 leaflet aortic valve with heavy calcification and severe restriction, history of aortic stenosis, trace mitral regurg, mild tricuspid regurg, concentric left ventricular hypertrophy with preserved left ventricular function. The catheterization showed a calcified left main coronary artery without significant stenosis, right coronary artery with proximal stenosis of 40-50% and mid stenosis 70-80% and 30-40% stenosis in the circumflex coronary artery. Preop PFT showed FEV1 of 1.83 L or 56% of predicted , with a forced vital capacity of 2.86 L or 64% of predicted, consistent with moderately severe restriction. 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 Today on 12/02/2018 patient seen in the intensive care unit, in the postoperative period, status post 1 vessel coronary artery bypass, SVG to the RCA, and aortic valve replacement using a bioprosthetic valve. Patient is that it, intubated on mechanical ventilator, current vent settings are SIMV mode with a rate of 12, tidal volume of 580, FiO2 100% and PEEP of 10. Patient was placed on assist-control mode with the same rate and tidal volume and FiO2. Patient is DDD paced, rate of 80 BPM. Current IV drips include lactated Ringer's at a rate of 50 ML per hour, Diprivan at 25 mics per kilo per minute, insulin is a 5 units per hour, nitroglycerin is at 5 mics per kilo per minute. Midsternal incision is clean dry and intact, 2 mediastinal chest tubes connected to Pleur-evac, with 60 mL of serosanguineous output, right pleural chest tube with minimal sanguis output in the Pleur-evac. Postop chest x-ray has been reviewed with Dr. Granda, shows left basal atelectasis, ET tube, NG tube PA catheter are in good locations. Postoperative blood work is pending. On 12/03/2018 patient seen in follow-up in the intensive care unit, patient was extubated at 2130 last night. Currently on 3 L per nasal cannula, pulse ox of 94%, afebrile, in sinus mechanism, with a rate of 74 BPM, blood pressure is 133/ 41, PA pressures of 19/13, with a CVP of 9, cardiac output is 5.9, and cardiac index is 2.4. Maintenance IV fluids are lactated Ringer's at 50 ML per hour,: Percocet 5 mg per hour, and insulin is at 5.5 units per hour. This is postop day 1 post one-vessel CABG, SVG to the RCA, and aortic valve replacement with a bioprosthetic valve. he is awake and alert, he needs it quite a bit of encouragement with deep breathing and coughing, and use of incentive spirometer , lung sounds are positive for crackles at the left lower base, otherwise clear. Incentive spirometer effort is 750 ML today. Today's chest x-ray was reviewed with Dr. Post, and showed left basilar atelectasis, chest tubes and PA catheter are in appropriate positions, with interval removal of the ET tube and OG tube. Today's labs have been reviewed, white blood cell count is 9.1, hemoglobin is 8.7, INR is 1.0, sodium is 143, potassium is 4.7, chloride is 113 , CO2 is 25 BUN is 20, creatinine is 1.32. AST was up slightly to 105 from 82, ALT was 44, alkaline phosphatase was 40. On 12/04/2018 patient seen in follow-up in the intensive care unit, sitting up in a chair. In no acute distress, currently on 2 L per nasal cannula, pulse ox is 98%, afebrile, hemodynamically stable. PA catheter has been discontinued. Lung sounds are clear to auscultation, today's chest x-ray has been reviewed with Dr. Granda. It showed left basilar atelectasis, and mild pulmonary vessel congestion. The patient is calm and comfortable, no dyspnea, incentive spirometer effort is 750 ML today. IV fluids are lactated Ringer's a rate of 40 ML per hour, insulin drip is at 5 units per hour. Mediastinal chest tube and right chest tubes are in place, and there has been 160 mL out of the mediastinal chest tubes, and to 12 mL out of the right pleural. Today's labs have been reviewed, white blood cell count is 8.4, hemoglobin is 7.7, sodium is 138, potassium is 4.7, chloride is 109, BUN is 24 creatinine is 1.2. On 12/05/2018 patient seen in follow-up in the intensive care unit. Patient is resting in bed, in no acute distress, currently on 3 L per nasal cannula his pulse ox is 95%, afebrile, hemodynamically stable. Patient did sustain a fall last night when he got up out of the chair unassisted, he does have a small contusion and abrasion on his left forehead, loss of consciousness, CT brain and cervical spine was done and showed cerebral atrophy and chronic small vessel ischemia, no acute intracranial abnormality, mild degenerative changes in the cervical spine, no fracture was seen. This morning patient is awake and alert, oriented 3, no signs of delirium. No difficulty breathing, patient is able to achieve 1000 ML in his incentive spirometer today. Chest tubes have been discontinued. Lung sounds are equal breath sounds bilaterally, with some scattered rhonchi. Sinus rhythm with a controlled rate. Today's labs have been noted, white blood cell count is 9.3, hemoglobin is 7.2, sodium was 138, potassium is 4.9, chloride was 107, CO2 is 26, BUN is 29, creatinine is 1.07. Patient is tolerating regular diet. Objective - Vital Signs Vital signs: Vital Signs Temp 98.3 F 12/05/18 08:00 Pulse 90 12/05/18 09:00 Resp 18 12/05/18 09:00 BP 160/59 12/05/18 09:00 Pulse Ox 95 12/05/18 09:00 Intake & Output 12/04/18 12/05/18 12/05/18 18:59 06:59 18:59 Intake Total 605.698 238.726 23 Output Total 790 175 450 Balance -184.302 63.726 -427 Weight 134.1 kg Intake: IV 286 106 23 Lactated Ringers 1,000 ml 220 70 20 @ 20 mls/hr IV .Q24H [facility] Rx#:[id number] PRESSURE BAGS 66 36 3 Intake, IV Titration 79.698 12.726 Amount Insulin Regular 100 unit 79.698 12.726 In Sodium Chloride 0.9% 100 ml @ Per Protocol IV .Q0M [facility] Rx#:[id number] Oral 240 120 Output: Chest Tube Drainage 240 30 Mediastinal x 2 60 RIGHT PLEURAL 180 30 Urine 550 145 450 Other: Voiding Method Indwelling Catheter Indwelling Catheter # Voids 0 ABP, PAP, CO, CI - Last Documented Arterial Blood Pressure 139/54 Pulmonary Artery Pressure 25/17 Cardiac Output 5.9 Cardiac Index 2.4 - Exam GENERAL EXAM: 68-year-old obese white male patient, currently on 3 L per nasal cannula with a pulse ox of 94%, HEAD: Normocephalic/atraumatic. Left forehead small abrasion and contusion EYES: Normal reaction of pupils, equal size. Conjunctiva pink, sclera white. NOSE: Clear with pink turbinates. THROAT: No erythema or exudates. NECK: No masses, no JVD, no thyroid enlargement, no adenopathy. CHEST: No chest wall deformity. Symmetrical expansion. Midsternal incision is clean dry and intact, interval removal of mediastinal and pleural chest tubes LUNGS: Equal air entry with diminished breath sounds at the bases, scattered rhonchi CVS: Regular rate and rhythm, normal S1 and S2, no gallops, no murmurs, no rubs ABDOMEN: Soft, nontender. No hepatosplenomegaly, normal bowel sounds, no guarding or rigidity. EXTREMITIES: No clubbing, no edema, no cyanosis, 2+ pulses and upper and lower extremities. Right lower extremity site is wrapped with Dov wraps, SCDs on bilateral lower extremities MUSCULOSKELETAL: Muscle strength and tone normal. SPINE: No scoliosis or deformity SKIN: No rashes CENTRAL NERVOUS SYSTEM: No focal deficits, tone is normal in all 4 extremities. - Labs CBC & Chem 7: 12/05/18 07:30 12/05/18 07:30 Labs: Abnormal Lab Results - Last 24 Hours (Table) 12/04/18 12/04/18 12/04/18 Range/Units 10:07 11:14 12:53 RBC (4.30-5.90) m/uL Hgb (13.0-17.5) gm/dL Hct (39.0-53.0) % MCV (80.0-100.0) fL Plt Count (150-450) k/uL BUN (9-20) mg/dL Glucose (74-99) mg/dL POC Glucose (mg/dL) 206 H 170 H 132 H (75-99) mg/dL Calcium (8.4-10.2) mg/dL AST (17-59) U/L Total Protein (6.3-8.2) g/dL Albumin (3.5-5.0) g/dL 12/04/18 12/04/18 12/04/18 Range/Units 14:07 15:22 16:18 RBC (4.30-5.90) m/uL Hgb (13.0-17.5) gm/dL Hct (39.0-53.0) % MCV (80.0-100.0) fL Plt Count (150-450) k/uL BUN (9-20) mg/dL Glucose (74-99) mg/dL POC Glucose (mg/dL) 267 H 198 H 158 H (75-99) mg/dL Calcium (8.4-10.2) mg/dL AST (17-59) U/L Total Protein (6.3-8.2) g/dL Albumin (3.5-5.0) g/dL 12/04/18 12/04/18 12/04/18 Range/Units 17:14 18:33 20:15 RBC (4.30-5.90) m/uL Hgb (13.0-17.5) gm/dL Hct (39.0-53.0) % MCV (80.0-100.0) fL Plt Count (150-450) k/uL BUN (9-20) mg/dL Glucose (74-99) mg/dL POC Glucose (mg/dL) 144 H 158 H 143 H (75-99) mg/dL Calcium (8.4-10.2) mg/dL AST (17-59) U/L Total Protein (6.3-8.2) g/dL Albumin (3.5-5.0) g/dL 12/04/18 12/05/18 12/05/18 Range/Units 21:40 00:14 01:53 RBC (4.30-5.90) m/uL Hgb (13.0-17.5) gm/dL Hct (39.0-53.0) % MCV (80.0-100.0) fL Plt Count (150-450) k/uL BUN (9-20) mg/dL Glucose (74-99) mg/dL POC Glucose (mg/dL) 141 H 251 H 274 H (75-99) mg/dL Calcium (8.4-10.2) mg/dL AST (17-59) U/L Total Protein (6.3-8.2) g/dL Albumin (3.5-5.0) g/dL 12/05/18 12/05/18 12/05/18 Range/Units 03:46 06:57 07:30 RBC (4.30-5.90) m/uL Hgb (13.0-17.5) gm/dL Hct (39.0-53.0) % MCV (80.0-100.0) fL Plt Count (150-450) k/uL BUN 29 H (9-20) mg/dL Glucose 208 H (74-99) mg/dL POC Glucose (mg/dL) 284 H 248 H (75-99) mg/dL Calcium 8.2 L (8.4-10.2) mg/dL AST 186 H (17-59) U/L Total Protein 4.9 L (6.3-8.2) g/dL Albumin 2.8 L (3.5-5.0) g/dL 12/05/18 Range/Units 07:30 RBC 2.19 L (4.30-5.90) m/uL Hgb 7.2 L (13.0-17.5) gm/dL Hct 21.9 L (39.0-53.0) % MCV 100.2 H (80.0-100.0) fL Plt Count 127 L (150-450) k/uL BUN (9-20) mg/dL Glucose (74-99) mg/dL POC Glucose (mg/dL) (75-99) mg/dL Calcium (8.4-10.2) mg/dL AST (17-59) U/L Total Protein (6.3-8.2) g/dL Albumin (3.5-5.0) g/dL Assessment and Plan Plan: Assessment: #1. Severe symptomatic aortic valve stenosis and coronary artery disease, status post aortic valve replacement and one-vessel bypass, SVG to the RCA,post op day 3 #2. Postoperative ventilator management, he was successfully extubated last night on 12/02/2018 at 2130, tolerated extubation quite well, on 3 L per nasal cannula #3. Postop blood loss anemia, and expected outcome of bypass surgery, and aortic valve replacement surgery #4. Diabetes mellitus with diabetic neuropathy #5. Hypertension, hyperlipidemia #6. Morbid obesity #7. Osteoarthritis #8. Release episodes of pneumonia #9. Postoperative infections owing left total hip arthroplasty, and right total hip arthroplasty,requiring IV antibiotic infusions maintenance dose of oral doxycycline Plan: Continue with current plan of treatment, today's chest x-ray has been reviewed, and showed left basilar atelectasis, and possibly small left pleural effusion. CT brain and cervical spine was negative. Patient is awake and alert, oriented 3, no signs of delirium. Vital signs are stable. Continue encouraging deep breathing and coughing, chest tubes have been removed. Labs have been reviewed , is awaiting for her back on selective care unit. We'll continue to follow. I performed a history & physical examination of the patient and discussed their management with my nurse practitioner, Niurka Read. I reviewed the nurse practitioner's note and agree with the documented findings and plan of care. Lung sounds are clear breath sounds The findings and the impression was discussed with the patient. I attest to the documentation by the nurse practitioner. Time with Patient: Less than 30
[2018-12-05] MEDS: CHOLECALCIFEROL 1,000 UNIT TAB PO SCH (11:56)
[2018-12-05] MEDS: INSULIN DETEMIR 100 UNIT/ML 10 ML VIAL SQ SCH ×2 (11:59→21:03)
[2018-12-05 12:00] LABS: Glucose,Whole Blood 190 mg/dL (75-99)
[2018-12-05] MEDS ORDERED: LISINOPRIL 2.5 MG TAB PO SCH (12:00)
[2018-12-05] MEDS: MUPIROCIN 2% OINT 22 GM TUBE NASAL SCH ×2 (12:06→21:03)
[2018-12-05] MEDS ORDERED: FUROSEMIDE 10 MG/ML 4 ML VIAL IV STA (12:48)
--- NOTE | 2018-12-05 13:43 | P.PN ---
Subjective Progress Note Date: 12/05/18 Principal diagnosis: Severe aortic valve stenosis, coronary artery disease, history of hypertension, hyperlipidemia, family history of coronary artery disease, diabetes mellitus with neuropathy and a preoperative hemoglobin A1c 6.3%, previous tobacco dependence, moderate COPD with preoperative FEV1 56% of predicted, morbid obesity with a BMI of 42.7 kg/m, rare EtOH use, depression, shingles, history of basal cell skin carcinoma diagnosed in 2016 and 2017, osteoarthritis, both right and left hip replacements with postoperative infections and subsequent IV antibiotics managed by per Dr. Ricci from infectious disease. POD #3 aortic valve replacement using 23 mm Pelaez magna ease bioprosthetic valve. Coronary artery bypass grafting 1 vessel, a reverse greater saphenous vein graft to the right coronary artery. Endoscopic vein harvest, right greater saphenous vein. Epi-aortic ultrasound. Intraoperative transesophageal echocardiogram. Closure of the sternum using Blair cable system. Postoperative acute blood loss anemia, an expected outcome of surgery secondary to cardiopulmonary bypass pump and hemodilution. Patient is currently lying in bed in the intensive care unit. He is in no acute distress. The patient's nurse from the security shift manager reports that the patient had a fall after trying to get out of the chair on his own. The patient currently is complaining of pain 5 out of 10 on the pain scale 2 his bilateral shoulders. He denies any complaints of shortness of breath. He is alert and oriented 3 with episodes of forgetfulness. Bedside telemetry showing normal sinus rhythm heart rate 80. Right pleural chest tube remains in place to low continuous wall suction -20 cm H2O. Draining thin serosanguineous drainage. No air leak present. Objective - Vital Signs Vital signs: Vital Signs Temp 98.1 F 12/05/18 04:00 Pulse 80 12/05/18 07:14 Resp 19 12/05/18 07:00 BP 148/56 12/05/18 07:00 Pulse Ox 97 12/05/18 07:00 Intake & Output 12/04/18 12/05/18 12/05/18 18:59 06:59 18:59 Intake Total 605.698 238.726 23 Output Total 790 175 450 Balance -184.302 63.726 -427 Weight 134.1 kg Intake: IV 286 106 23 Lactated Ringers 1,000 ml 220 70 20 @ 20 mls/hr IV .Q24H GAETANO Rx#:[id number] PRESSURE BAGS 66 36 3 Intake, IV Titration 79.698 12.726 Amount Insulin Regular 100 unit 79.698 12.726 In Sodium Chloride 0.9% 100 ml @ Per Protocol IV .Q0M GAETANO Rx#:[id number] Oral 240 120 Output: Chest Tube Drainage 240 30 Mediastinal x 2 60 RIGHT PLEURAL 180 30 Urine 550 145 450 Other: Voiding Method Indwelling Catheter Indwelling Catheter # Voids 0 ABP, PAP, CO, CI - Last Documented Arterial Blood Pressure 104/94 Pulmonary Artery Pressure 25/17 Cardiac Output 5.9 Cardiac Index 2.4 - Constitutional General appearance: Present: cooperative, morbidly obese, no acute distress - Respiratory Details: Lung sounds with few scattered crackles and expiratory wheezes throughout, diminished to his bilateral bases. Respirations symmetrical and nonlabored. Oxygen saturation are 97% on 3 L nasal cannula. He is achieving 750 mL on his incentive spirometry with much encouragement. Right pleural chest tube remains in place to low continuous wall suction. No air leak is present. Draining thin serosanguineous drainage. 260 mL output in the last 24 hours. - Cardiovascular Details: Regular rhythm and rate. S1 and S2 present, negative for S3, gallop or murmur. Sternum is stable. Bedside telemetry showing normal sinus rhythm heart rate 80. Heart hugger is in place and he is demonstrating appropriate use with much encouragement. Atrial and ventricular epicardial pacemaker wires in place and rounded. Knee-high AVE hose and sequential compression devices in place to his bilateral lower extremities. +1 edema to his bilateral lower extremities. Left radial arterial line in place and functioning. - Gastrointestinal Gastrointestinal Comment(s): Abdomen is soft, nontender and nondistended. Hypoactive bowel sounds all 4 abdominal quadrants. Tolerating oral intake. No guarding or rigidity. No organomegaly. Obese. Passing flatus. - Genitourinary Genitourinary Comment(s): Leonard catheter for accurate I&O. Drinking clear sadiq urine. 450 mL output in the last 8 hours. - Integumentary Integumentary Comment(s): Skin is warm and dry. No clubbing or cyanosis present. Midline sternal incision is clean, dry and approximated. No drainage or redness present. Gauze dressing clean, dry and intact. Right lower extremity EVH sites seen, dry and approximated. No drainage or redness present. Ecchymosis to his right thigh soft and nontender to touch. - Neurologic Neurologic: Present: CNII-XII intact - Musculoskeletal Musculoskeletal Comment(s): Weakness to his bilateral upper extremities. Musculoskeletal: Present: generalized weakness, strength equal bilaterally - Psychiatric Psychiatric: Present: A&O x's 3, appropriate affect, intact judgment & insight - Allied health notes Allied health notes reviewed: nursing - Labs CBC & Chem 7: 12/05/18 07:30 12/05/18 07:30 Labs: Abnormal Lab Results - Last 24 Hours (Table) 12/04/18 12/04/18 12/04/18 Range/Units 08:55 10:07 11:14 RBC (4.30-5.90) m/uL Hgb (13.0-17.5) gm/dL Hct (39.0-53.0) % MCV (80.0-100.0) fL Plt Count (150-450) k/uL BUN (9-20) mg/dL Glucose (74-99) mg/dL POC Glucose (mg/dL) 219 H 206 H 170 H (75-99) mg/dL Calcium (8.4-10.2) mg/dL AST (17-59) U/L Total Protein (6.3-8.2) g/dL Albumin (3.5-5.0) g/dL 12/04/18 12/04/18 12/04/18 Range/Units 12:53 14:07 15:22 RBC (4.30-5.90) m/uL Hgb (13.0-17.5) gm/dL Hct (39.0-53.0) % MCV (80.0-100.0) fL Plt Count (150-450) k/uL BUN (9-20) mg/dL Glucose (74-99) mg/dL POC Glucose (mg/dL) 132 H 267 H 198 H (75-99) mg/dL Calcium (8.4-10.2) mg/dL AST (17-59) U/L Total Protein (6.3-8.2) g/dL Albumin (3.5-5.0) g/dL 12/04/18 12/04/18 12/04/18 Range/Units 16:18 17:14 18:33 RBC (4.30-5.90) m/uL Hgb (13.0-17.5) gm/dL Hct (39.0-53.0) % MCV (80.0-100.0) fL Plt Count (150-450) k/uL BUN (9-20) mg/dL Glucose (74-99) mg/dL POC Glucose (mg/dL) 158 H 144 H 158 H (75-99) mg/dL Calcium (8.4-10.2) mg/dL AST (17-59) U/L Total Protein (6.3-8.2) g/dL Albumin (3.5-5.0) g/dL 12/04/18 12/04/18 12/05/18 Range/Units 20:15 21:40 00:14 RBC (4.30-5.90) m/uL Hgb (13.0-17.5) gm/dL Hct (39.0-53.0) % MCV (80.0-100.0) fL Plt Count (150-450) k/uL BUN (9-20) mg/dL Glucose (74-99) mg/dL POC Glucose (mg/dL) 143 H 141 H 251 H (75-99) mg/dL Calcium (8.4-10.2) mg/dL AST (17-59) U/L Total Protein (6.3-8.2) g/dL Albumin (3.5-5.0) g/dL 12/05/18 12/05/18 12/05/18 Range/Units 01:53 03:46 06:57 RBC (4.30-5.90) m/uL Hgb (13.0-17.5) gm/dL Hct (39.0-53.0) % MCV (80.0-100.0) fL Plt Count (150-450) k/uL BUN (9-20) mg/dL Glucose (74-99) mg/dL POC Glucose (mg/dL) 274 H 284 H 248 H (75-99) mg/dL Calcium (8.4-10.2) mg/dL AST (17-59) U/L Total Protein (6.3-8.2) g/dL Albumin (3.5-5.0) g/dL 12/05/18 12/05/18 Range/Units 07:30 07:30 RBC 2.19 L (4.30-5.90) m/uL Hgb 7.2 L (13.0-17.5) gm/dL Hct 21.9 L (39.0-53.0) % MCV 100.2 H (80.0-100.0) fL Plt Count 127 L (150-450) k/uL BUN 29 H (9-20) mg/dL Glucose 208 H (74-99) mg/dL POC Glucose (mg/dL) (75-99) mg/dL Calcium 8.2 L (8.4-10.2) mg/dL AST 186 H (17-59) U/L Total Protein 4.9 L (6.3-8.2) g/dL Albumin 2.8 L (3.5-5.0) g/dL - Imaging and Cardiology Chest x-ray: report reviewed, image reviewed Assessment and Plan (1) Aortic stenosis Current Visit: Yes Status: Chronic Code(s): I35.0 - NONRHEUMATIC AORTIC ( VALVE) STENOSIS SNOMED Code(s): 43078330 (2) COPD (chronic obstructive pulmonary disease) Current Visit: Yes Status: Chronic Code(s): J44.9 - CHRONIC OBSTRUCTIVE PULMONARY DISEASE, UNSPECIFIED SNOMED Code(s): 13272118 (3) Coronary artery disease Current Visit: Yes Status: Chronic Code(s): I25.10 - ATHSCL HEART DISEASE OF [place] CORONARY ARTERY W/O ANG PCTRS SNOMED Code(s): 01747208 (4) Diabetes mellitus Current Visit: Yes Status: Chronic Code(s): E11.9 - TYPE 2 DIABETES MELLITUS WITHOUT COMPLICATIONS SNOMED Code(s): 09258161 (5) Family history of coronary artery disease Current Visit: Yes Status: Chronic Code(s): Z82.49 - FAMILY HX OF ISCHEM HEART DIS AND OTH DIS OF THE CIRC SYS SNOMED Code(s): 192019862 (6) Hyperlipidemia Current Visit: Yes Status: Chronic Code(s): E78.5 - HYPERLIPIDEMIA, UNSPECIFIED SNOMED Code(s): 80662126 (7) Hypertension Current Visit: Yes Status: Chronic Code(s): I10 - ESSENTIAL (PRIMARY) HYPERTENSION SNOMED Code(s): 57780910 (8) Morbid obesity Current Visit: Yes Status: Chronic Code(s): E66.01 - MORBID (SEVERE) OBESITY DUE TO EXCESS CALORIES SNOMED Code(s): 615173480 (9) Osteoarthritis Current Visit: Yes Status: Chronic Code(s): M19.90 - UNSPECIFIED OSTEOARTHRITIS, UNSPECIFIED SITE SNOMED Code(s): 794828473 (10) Tobacco dependence in remission Current Visit: No Status: Resolved Code(s): F17.201 - NICOTINE DEPENDENCE, UNSPECIFIED, IN REMISSION SNOMED Code(s): 819755452 Plan: 1. Continue aspirin, statin, Plavix and, beta paul. Will increase beta paul date as tolerated. 2. Wean O2 as tolerated. Encourage incentive spirometry is 10 times every hour while awake. Encourage continued smoking cessation. 3. Increase activity. Encourage ambulation. PT/OT/cardiac rehab following. 4. Lasix 40 mg IV 1 now. 5. Continue right pleural chest tube to low continuous wall suction -20 cm H2O. 6. Monitor daily labs and x-rays. Electrolyte replacement per protocol. 7. Pain control with current medication regimen. Discontinue tramadol. 8. Bronchodilators management per pulmonology. 9. GI prophylaxis with Protonix, DVT prophylaxis with subcu heparin, SCDs. 10. Continue daily doxycycline, patient is on lifetime antibiotics management per Dr. Ricci for postoperative infections after hip surgeries. 11. Insulin management per primary care service. 12. Lisinopril 2.5 mg by mouth daily. 13. Ultrasound left chest with markings. 14. Discontinue left radial arterial line. 15. More recommendations to follow based on patient's clinical course. Time with Patient: Greater than 30
--- NOTE | 2018-12-05 14:25 | P.PN ---
Subjective Progress Note Date: 12/05/18 68-year-old male one of Dr. Graham patient with past medical history of aortic stenosis, hypertension, hyperlipidemia, history of diabetes, severe GERD chronic edema mild depression who has been experiencing exertional dyspnea over the last 6 month without any syncopal episode denies any chest pain. Patient subsequently seen cardiology transesophageal echocardiogram and heart catheter revealed severe calcified aortic valve stenosis with severe restriction also patient had trace mitral regurgitation. 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 Patient was seen pulmonary PFT performed and showed mild obstructive lung disease patient ended up being hospitalized for elective surgery today successfully and ended up having one-vessel coronary artery bypass saphenous to the RCA and aortic valve replacement using bioprosthetic valve. Patient was admitted to the intensive care unit still on mechanical ventilation still on induced coma this point chest tube is in place. 12/03: Patient is extubated sitting in the chair doing well still have soreness and discomfort from the incision site, blood sugar is in the low 100 still on insulin drip close to 4.5 units an hour. Patient respiratory status is much better so far. No arrhythmia or A. fib. 12/04: Patient remains in the intensive care unit. This morning's blood sugars are running high and he will be started on home insulins but at a lower dose. Lantus will be at 40 units at bedtime tonight and insulin drip will be discontinued, NovoLog 12 units scheduled with meals and scale. Patient has been seen by Dr. Ricci with recommendations to continue his normal dose of chronic doxycycline. 12/05: Blood sugars are now running in the 200s up to 284 and Levemir 20 units in the morning added to his scheduled 40 units at bedtime along with NovoLog increased from 12 units with meals to 15 units with meals along with NovoLog scale to be continued. Leonard is out, patient is waiting to void. right sidedChest tube remains in place. Patient denies any chest pain or shortness of breath. case monitor is sinus rhythm running in the 80s. case management and social staff worker following for possible inpatient rehab or second choice would be [facility]. Review of system: CONSTITUTIONAL: Obese no acute respiratory distress. EYES: No icterus sclerae, no conjunctivitis. EARS, NOSE, MOUTH, THROAT, and FACE: No sore throat, lymphadenopathy, carotid bruits or deformity. RESPIRATORY: No SOB cough or wheezes. Still have chest wall pain from the surgical incision CARDIOVASCULAR: Positive CP, no Palpitation, denies PND, Orthopnea, or angina. GASTROINTESTINAL: No Abd pain, Nausea or vomiting, no Diarrhea or constipation, No GI Bleed, no distention or masses. GENITOURINARY: Negative for Hematuria or UTI, no kidney stones. INTEGUMENT/BREAST: Negative for any muscular injury with mild osteoarthritis.. HEMATOLOGIC/LYMPHATIC: Negative for bleed or purpura. MUSCULOSKELTAL: Negative for Myalgia or arthralgia. NEURLOGICAL: No LOC, Sz or syncope, blurred vision dizziness or abnormality.. BEHAVIORAL/PSYCH: Negative. ENDOCRINE: Negative. Objective - Vital Signs Vital signs: Vital Signs Temp 98.1 F 12/05/18 04:00 Pulse 80 12/05/18 07:14 Resp 19 12/05/18 07:00 BP 148/56 12/05/18 07:00 Pulse Ox 97 12/05/18 07:00 Intake & Output 12/04/18 12/05/18 12/05/18 18:59 06:59 18:59 Intake Total 605.698 238.726 23 Output Total 790 175 450 Balance -184.302 63.726 -427 Weight 134.1 kg Intake: IV 286 106 23 Lactated Ringers 1,000 ml 220 70 20 @ 20 mls/hr IV .Q24H GAETANO Rx#:[id number] PRESSURE BAGS 66 36 3 Intake, IV Titration 79.698 12.726 Amount Insulin Regular 100 unit 79.698 12.726 In Sodium Chloride 0.9% 100 ml @ Per Protocol IV .Q0M GAETANO Rx#:[id number] Oral 240 120 Output: Chest Tube Drainage 240 30 Mediastinal x 2 60 RIGHT PLEURAL 180 30 Urine 550 145 450 Other: Voiding Method Indwelling Catheter Indwelling Catheter # Voids 0 ABP, PAP, CO, CI - Last Documented Arterial Blood Pressure 104/94 Pulmonary Artery Pressure 25/17 Cardiac Output 5.9 Cardiac Index 2.4 - Exam General Appearance: Alert, cooperative, no distress, morbidly obese sitting up in a recliner. Neck HEENT: Supple, no lymphadenopathy, no thyroid enlargement, no carotid bruits. Lungs: Decrease breath sounds left side positive fine rhonchi no crackles or wheezes. Chest Wall: Incision looks fine with mild soreness and tenderness only. Heart: Regular rate and rhythm, S1, S2 normal, no murmur, rub or gallop. Back: Symmetric, no curvature, ROM normal, no CVA tenderness. Abdomen: Soft, non-tender, bowel sounds active all four quadrants, no masses, no organomegaly. Extremities: Extremities normal, atraumatic, no cyanosis or edema. Pulses: 2+ and symmetric. Skin: Skin color, texture, tugor normal, no rashes or lesions. Neurologic: Alert oriented x3 cranial nerves II through XII intact, no motor deficit, gait not assessed. - Labs CBC & Chem 7: 12/05/18 07:30 12/05/18 07:30 Labs: Abnormal Lab Results - Last 24 Hours (Table) 12/04/18 12/04/18 12/04/18 Range/Units 08:55 10:07 11:14 RBC (4.30-5.90) m/uL Hgb (13.0-17.5) gm/dL Hct (39.0-53.0) % MCV (80.0-100.0) fL Plt Count (150-450) k/uL BUN (9-20) mg/dL Glucose (74-99) mg/dL POC Glucose (mg/dL) 219 H 206 H 170 H (75-99) mg/dL Calcium (8.4-10.2) mg/dL AST (17-59) U/L Total Protein (6.3-8.2) g/dL Albumin (3.5-5.0) g/dL 12/04/18 12/04/18 12/04/18 Range/Units 12:53 14:07 15:22 RBC (4.30-5.90) m/uL Hgb (13.0-17.5) gm/dL Hct (39.0-53.0) % MCV (80.0-100.0) fL Plt Count (150-450) k/uL BUN (9-20) mg/dL Glucose (74-99) mg/dL POC Glucose (mg/dL) 132 H 267 H 198 H (75-99) mg/dL Calcium (8.4-10.2) mg/dL AST (17-59) U/L Total Protein (6.3-8.2) g/dL Albumin (3.5-5.0) g/dL 12/04/18 12/04/18 12/04/18 Range/Units 16:18 17:14 18:33 RBC (4.30-5.90) m/uL Hgb (13.0-17.5) gm/dL Hct (39.0-53.0) % MCV (80.0-100.0) fL Plt Count (150-450) k/uL BUN (9-20) mg/dL Glucose (74-99) mg/dL POC Glucose (mg/dL) 158 H 144 H 158 H (75-99) mg/dL Calcium (8.4-10.2) mg/dL AST (17-59) U/L Total Protein (6.3-8.2) g/dL Albumin (3.5-5.0) g/dL 12/04/18 12/04/18 12/05/18 Range/Units 20:15 21:40 00:14 RBC (4.30-5.90) m/uL Hgb (13.0-17.5) gm/dL Hct (39.0-53.0) % MCV (80.0-100.0) fL Plt Count (150-450) k/uL BUN (9-20) mg/dL Glucose (74-99) mg/dL POC Glucose (mg/dL) 143 H 141 H 251 H (75-99) mg/dL Calcium (8.4-10.2) mg/dL AST (17-59) U/L Total Protein (6.3-8.2) g/dL Albumin (3.5-5.0) g/dL 12/05/18 12/05/18 12/05/18 Range/Units 01:53 03:46 06:57 RBC (4.30-5.90) m/uL Hgb (13.0-17.5) gm/dL Hct (39.0-53.0) % MCV (80.0-100.0) fL Plt Count (150-450) k/uL BUN (9-20) mg/dL Glucose (74-99) mg/dL POC Glucose (mg/dL) 274 H 284 H 248 H (75-99) mg/dL Calcium (8.4-10.2) mg/dL AST (17-59) U/L Total Protein (6.3-8.2) g/dL Albumin (3.5-5.0) g/dL 12/05/18 12/05/18 Range/Units 07:30 07:30 RBC 2.19 L (4.30-5.90) m/uL Hgb 7.2 L (13.0-17.5) gm/dL Hct 21.9 L (39.0-53.0) % MCV 100.2 H (80.0-100.0) fL Plt Count 127 L (150-450) k/uL BUN 29 H (9-20) mg/dL Glucose 208 H (74-99) mg/dL POC Glucose (mg/dL) (75-99) mg/dL Calcium 8.2 L (8.4-10.2) mg/dL AST 186 H (17-59) U/L Total Protein 4.9 L (6.3-8.2) g/dL Albumin 2.8 L (3.5-5.0) g/dL Assessment and Plan Plan: 1 post aortic valve placement for severe calcified aortic valve stenosis patient had bioprosthetic valve successful surgery, post surgery patient is up in the chair. 2 post one-vessel bypass surgery with saphenous to the RCA: Stable and doing well. Intensive care management per Dr. Granda. 3 diabetes mellitus type II, insulin requiringuncontrolled secondary to hyperglycemia. Levemir 20 units in the morning added to his scheduled 40 units at bedtime along with NovoLog increased from 12 units with meals to 15 units with meals along with NovoLog scale to be continued. 4 arrhythmia: Patient was on amiodarone drip prophylaxis discontinued. 5 hyperlipidemia: Remain on atorvastatin 40 mg daily. 6 stage II chronic kidney disease: Daily lab and continue hydration. 7 mild abnormal liver function test: Which most likely hypoperfusion post surgery. 8 hypertension: Patient was started on hydralazine was using at home along with metoprolol resume both medication. 9 chronic pain syndrome: Patient will be back on his oral hydrocodone and tramadol. 10 GI prophylaxis: Patient remain on pantoprazole. 11. Acute blood loss anemia, expected with surgery. Discharge plan: inpatient rehab or subacute rehab ([facility]). Impression and plan of care have been directed as dictated by the signing physician. Bryanna Coker nurse practitioner acting as scribe for signing physician.
--- NOTE | 2018-12-05 16:27 | US ---
EXAMINATION TYPE: US chest DATE OF EXAM: 12/05/2018 COMPARISON: Radiograph same day CLINICAL HISTORY: 68-year-old male left pleural effusion. TECHNIQUE: Targeted ultrasound of the posterior lower bilateral hemithoraces. FINDINGS: EXAM MEASUREMENTS: Right Pleural Effusion pocket size: 0.96 cm A/P Left Pleural Effusion pocket size: 3.5 cm A/P Left skin surface to fluid distance: not measured as lung noted within fluid pocket Right side was not marked for possible thoracentesis outside the dept. Left side was not marked for possible thoracentesis outside the dept. Pulmonologists are able to review the images in the patient?s EMR. IMPRESSIONS: Small left pleural effusion. Given the radiographic appearance, there could be prominent adjacent ate lectasis or consolidation. Trace pleural fluid on the right. Markings not performed.
[2018-12-05 17:33] LABS: Glucose,Whole Blood 266 mg/dL (75-99)
[2018-12-05] MEDS: LACTATED RINGERS 1,000 ML IV SCH (18:54)
[2018-12-05 20:28] LABS: Glucose,Whole Blood 238 mg/dL (75-99)
[2018-12-05] MEDS: SENNOSIDES-DOCUSATE SODIUM 1 EACH TAB PO SCH (21:03)
[2018-12-06] MEDS: HEPARIN SODIUM,PORCINE 5,000 UNIT/ML 1 ML VIAL SQ SCH ×3 (00:55→15:46)
[2018-12-06 02:31] LABS: Glucose,Whole Blood 186 mg/dL (75-99)
[2018-12-06] MEDS: INSULIN ASPART 100 UNIT/ML 1 ML 10 ML VIAL SQ SCH ×8 (02:40→21:26)
[2018-12-06 05:49] LABS: Basophils % (A) 0 %; Eosinophils # (A) 0.1 k/uL (0-0.7); Eosinophils % (A) 1 %; HCT 21.9 % (39.0-53.0); HGB 7.6 gm/dL (13.0-17.5); Hypochromasia Slight; Lymphocytes # (A) 1.6 k/uL (1.0-4.8); Lymphocytes % (A) 19 %; MCH 35.4 pg (25.0-35.0); MCHC 34.7 g/dL (31.0-37.0); MCV 101.9 fL (80.0-100.0); Macrocytosis Slight; Mean Platelet Volume 7.1; Monocytes # (A) 0.5 k/uL (0-1.0); Monocytes % (A) 5 %; Neutrophils % (A) 72 %; Platelet Count 139 k/uL (150-450); Poikilocytosis Slight; RBC 2.15 m/uL (4.30-5.90); RDW 15.1 % (11.5-15.5); WBC 8.3 k/uL (3.8-10.6)
[2018-12-06 06:12] LABS: Albumin 2.8 g/dL (3.5-5.0); Calcium 8.1 mg/dL (8.4-10.2); Magnesium 2.6 mg/dL (1.6-2.3); Phosphorus 3.4 mg/dL (2.5-4.5); Potassium 4.3 mmol/L (3.5-5.1); Total Bilirubin 0.8 mg/dL (0.2-1.3)
[2018-12-06 06:57] LABS: Glucose,Whole Blood 168 mg/dL (75-99)
[2018-12-06] MEDS: IPRATROPIUM-ALBUTEROL 3 ML NEB INHALATION SCH ×4 (07:06→20:09)
[2018-12-06] MEDS ORDERED: FUROSEMIDE 10 MG/ML 2 ML VIAL IV ONE (07:24)
--- NOTE | 2018-12-06 07:26 | XR ---
EXAMINATION TYPE: XR chest 1V portable DATE OF EXAM: 12/06/2018 CLINICAL HISTORY: Post open cardiac surgery progress study. TECHNIQUE: Single AP portable upright view of the chest is obtained. COMPARISON: Chest x-ray from one day earlier and older studies. FINDINGS: There is stable right-sided chest tube port projecting towards apex. Overlying sternal wir es with metallic aortic valve is redemonstrated. There is persistent cardiomegaly. There is persisten t left basilar opacity. Right lung remains clear without pneumothorax. No mediastinal shift is seen. Osseous structures are intact. IMPRESSION: Overall stable findings, cardiomegaly with persistent small left pleural effusion and a ssociated left basilar atelectasis and/or infiltrate all redemonstrated.
--- NOTE | 2018-12-06 08:07 | P.PN ---
Subjective Progress Note Date: 12/06/18 Principal diagnosis: Severe aortic valve stenosis, coronary artery disease. Previous medical history of hypertension, hyperlipidemia, family history of coronary artery disease, diabetes mellitus with neuropathy with preoperative hemoglobin A1c 6.3% , previous tobacco dependence, moderate COPD with preoperative FEV1 56% of predicted, morbid obesity, rare EtOH use, depression, shingles, basal cell skin carcinoma diagnosed in 2016 and 2017, osteoarthritis, both right and left hip replacements with postoperative infections and subsequent IV antibiotics per Dr. Ricci. POD #4 aortic valve replacement using 23 mm Pelaez magna ease bioprosthetic valve. Coronary artery bypass grafting 1 vessel, as reverse saphenous vein graft to the right coronary artery. Endoscopic vein harvest, right greater saphenous vein. Epi-aortic ultrasound. Intraoperative transesophageal echocardiogram. Closure of the sternum using Ross cable system. Postoperative acute blood loss anemia, an expected outcome of surgery secondary to cardiopulmonary bypass pump and hemodilution. The patient's currently sitting up in a recliner in no acute distress. Does complain of postsurgical pain, denies shortness of breath. Hemodynamically stable on no inotropes or pressors. No new complaints. Objective - Vital Signs Vital signs: Vital Signs Temp 97.4 F L 12/06/18 04:00 Pulse 82 12/06/18 07:16 Resp 19 12/06/18 07:00 BP 137/53 12/06/18 06:00 Pulse Ox 91 L 12/06/18 07:00 Intake & Output 12/05/18 12/06/18 12/06/18 18:59 06:59 18:59 Intake Total 676 246 20 Output Total 1815 200 Balance -1139 46 20 Weight 135 kg Intake: IV 276 246 20 Lactated Ringers 1,000 ml 240 240 20 @ 20 mls/hr IV .Q24H GAETANO Rx#:[id number] PRESSURE BAGS 36 6 Oral 400 Output: Chest Tube Drainage 190 RIGHT PLEURAL 190 Urine 1625 200 Other: Voiding Method Urinal Urinal # Voids 1 ABP, PAP, CO, CI - Last Documented Arterial Blood Pressure 189/45 Pulmonary Artery Pressure 25/17 Cardiac Output 5.9 Cardiac Index 2.4 - Constitutional General appearance: Present: cooperative, no acute distress, obese - Respiratory Details: Lungs sounds diminished bilaterally, left greater than right. Respirations even , nonlabored. Currently on 3 L nasal cannula with oxygen saturation 99%. Able to achieve 750 mL on his incentive spirometry. Strong cough. Right pleural chest tube to continuous wall suction, no drainage overnight, 250 mL serous drainage in the last 24 hours. No air leaks present. - Cardiovascular Details: S1, S2 present. Regular rate and rhythm, sinus rhythm on telemetry. A/V epicardial pacemaker wires present, grounded. Sternum stable. Palpable peripheral pulses bilaterally. No edema present. No calf pain or tenderness noted. Heart hugger in place with patient demonstrating appropriate use with encouragement. Antiembolism stockings, SCDs present. - Gastrointestinal Gastrointestinal Comment(s): Abdomen soft, nontender, nondistended, obese. Active bowel sounds present 4 quadrants. Tolerating diet. Positive flatus, negative bowel movement. - Genitourinary Genitourinary Comment(s): Leonard discontinued yesterday. Patient has voided 200 mL last evening as well as unmeasured amount this morning. - Integumentary Integumentary Comment(s): Skin is warm and dry with evidence of good perfusion. Anterior chest incision well approximated and covered with dry intact dressing. Right lower extremity EVH site well approximated with Dermabond. - Neurologic Neurologic: Present: CNII-XII intact - Musculoskeletal Musculoskeletal: Present: gait normal, generalized weakness, strength equal bilaterally - Psychiatric Psychiatric: Present: A&O x's 3, appropriate affect, intact judgment & insight - Allied health notes Allied health notes reviewed: nursing - Labs CBC & Chem 7: 12/06/18 05:34 12/06/18 05:34 Labs: Abnormal Lab Results - Last 24 Hours (Table) 12/05/18 12/05/18 12/05/18 Range/Units 07:30 07:30 11:57 RBC 2.19 L (4.30-5.90) m/uL Hgb 7.2 L (13.0-17.5) gm/dL Hct 21.9 L (39.0-53.0) % MCV 100.2 H (80.0-100.0) fL MCH (25.0-35.0) pg Plt Count 127 L (150-450) k/uL BUN 29 H (9-20) mg/dL Glucose 208 H (74-99) mg/dL POC Glucose (mg/dL) 190 H (75-99) mg/dL Calcium 8.2 L (8.4-10.2) mg/dL Magnesium (1.6-2.3) mg/dL AST 186 H (17-59) U/L Total Protein 4.9 L (6.3-8.2) g/dL Albumin 2.8 L (3.5-5.0) g/dL 12/05/18 12/05/18 12/06/18 Range/Units 17:07 20:14 02:03 RBC (4.30-5.90) m/uL Hgb (13.0-17.5) gm/dL Hct (39.0-53.0) % MCV (80.0-100.0) fL MCH (25.0-35.0) pg Plt Count (150-450) k/uL BUN (9-20) mg/dL Glucose (74-99) mg/dL POC Glucose (mg/dL) 266 H 238 H 186 H (75-99) mg/dL Calcium (8.4-10.2) mg/dL Magnesium (1.6-2.3) mg/dL AST (17-59) U/L Total Protein (6.3-8.2) g/dL Albumin (3.5-5.0) g/dL 12/06/18 12/06/18 12/06/18 Range/Units 05:34 05:34 06:54 RBC 2.15 L (4.30-5.90) m/uL Hgb 7.6 L (13.0-17.5) gm/dL Hct 21.9 L (39.0-53.0) % MCV 101.9 H (80.0-100.0) fL MCH 35.4 H (25.0-35.0) pg Plt Count 139 L (150-450) k/uL BUN 28 H (9-20) mg/dL Glucose 143 H (74-99) mg/dL POC Glucose (mg/dL) 168 H (75-99) mg/dL Calcium 8.1 L (8.4-10.2) mg/dL Magnesium 2.6 H (1.6-2.3) mg/dL AST 107 H (17-59) U/L Total Protein 5.0 L (6.3-8.2) g/dL Albumin 2.8 L (3.5-5.0) g/dL - Imaging and Cardiology Chest x-ray: report reviewed, image reviewed Assessment and Plan (1) Morbid obesity Current Visit: Yes Status: Chronic Code(s): E66.01 - MORBID (SEVERE) OBESITY DUE TO EXCESS CALORIES SNOMED Code(s): 462611006 (2) COPD (chronic obstructive pulmonary disease) Current Visit: Yes Status: Chronic Code(s): J44.9 - CHRONIC OBSTRUCTIVE PULMONARY DISEASE, UNSPECIFIED SNOMED Code(s): 58110133 (3) Family history of coronary artery disease Current Visit: Yes Status: Chronic Code(s): Z82.49 - FAMILY HX OF ISCHEM HEART DIS AND OTH DIS OF THE CIRC SYS SNOMED Code(s): 133046144 (4) Coronary artery disease Current Visit: Yes Status: Chronic Code(s): I25.10 - ATHSCL HEART DISEASE OF [place] CORONARY ARTERY W/O ANG PCTRS SNOMED Code(s): 13476947 (5) Aortic stenosis Current Visit: Yes Status: Chronic Code(s): I35.0 - NONRHEUMATIC AORTIC ( VALVE) STENOSIS SNOMED Code(s): 49186906 (6) Diabetes mellitus Current Visit: Yes Status: Chronic Code(s): E11.9 - TYPE 2 DIABETES MELLITUS WITHOUT COMPLICATIONS SNOMED Code(s): 11827034 (7) Hyperlipidemia Current Visit: Yes Status: Chronic Code(s): E78.5 - HYPERLIPIDEMIA, UNSPECIFIED SNOMED Code(s): 99982245 (8) Hypertension Current Visit: Yes Status: Chronic Code(s): I10 - ESSENTIAL (PRIMARY) HYPERTENSION SNOMED Code(s): 65475815 (9) Osteoarthritis Current Visit: Yes Status: Chronic Code(s): M19.90 - UNSPECIFIED OSTEOARTHRITIS, UNSPECIFIED SITE SNOMED Code(s): 113837285 (10) Tobacco dependence in remission Current Visit: No Status: Resolved Code(s): F17.201 - NICOTINE DEPENDENCE, UNSPECIFIED, IN REMISSION SNOMED Code(s): 339541030 Plan: 1. Continue aspirin, statin, Plavix, DARWIN inhibitor, hydralazine, beta paul therapy. Will increase beta paul therapy as tolerated. 2. Wean O2 as tolerated. Encourage incentive spirometry is 10 times every hour while awake. Encourage continued smoking cessation. 3. Increase activity. Encourage ambulation. PT/OT/cardiac rehab following. 4. Lasix 40 mg IV push 1 now. 5. Will discontinue right pleural chest tube. 6. Monitor daily labs and x-rays. Electrolyte replacement per protocol. No transfusion at this time. 7. Pain control with current medication regimen. No narcotics. 8. Bronchodilators per pulmonology. Ultrasound of left chest completed, small left pleural effusion with 3.5 cm pocket not marked for thoracentesis as lung noted within the fluid pocket. 9. GI prophylaxis with Protonix, DVT prophylaxis with subcu heparin, SCDs. 10. Continue daily doxycycline, patient is on lifetime antibiotics per Dr. Ricci for postoperative infections after hip surgeries. Will consult Dr. Ricci for any further recommendations. 11. Insulin management per primary care service. 12. Will place transfer orders for 3 S. cardiac stepdown unit. May transfer when bed available. 13. Anticipate discharge in the next 48-72 hours. Possible DIANNA at discharge unless patient safely increases his activity. This was discussed with the patient. 14. More recommendations to follow. Time with Patient: Greater than 30
[2018-12-06] MEDS: ACETAMINOPHEN TAB 325 MG TAB PO PRN (08:23)
[2018-12-06] MEDS: INSULIN DETEMIR 100 UNIT/ML 10 ML VIAL SQ SCH ×2 (08:24→21:27)
[2018-12-06] MEDS: PREGABALIN 100 MG CAP PO SCH ×2 (08:25→21:22)
[2018-12-06] MEDS: CLOPIDOGREL 75 MG TAB PO SCH (08:25)
[2018-12-06] MEDS: ASPIRIN 325 MG TAB PO SCH (08:25)
[2018-12-06] MEDS: DOXYCYCLINE 100 MG CAP PO SCH ×2 (08:25→22:21)
[2018-12-06] MEDS: METOPROLOL TARTRATE 25 MG TAB PO SCH ×2 (08:25→21:21)
[2018-12-06] MEDS: CITALOPRAM HYDROBROMIDE 20 MG TAB PO SCH (08:25)
[2018-12-06] MEDS: ATORVASTATIN 40 MG TAB PO SCH (08:25)
[2018-12-06] MEDS: hydrALAZINE HCL 25 MG TAB PO SCH (08:26)
[2018-12-06] MEDS: valACYclovir 500 MG TAB PO SCH (08:26)
[2018-12-06] MEDS: PANTOPRAZOLE 40 MG TABLET PO SCH (08:26)
--- NOTE | 2018-12-06 10:24 | P.PN ---
Subjective Progress Note Date: 12/06/18 Principal diagnosis: Severe aortic valve stenosis, coronary artery disease, status post aortic valve replacement, single vessel bypass graft. This is 68-year-old white male patient of Dr. Jonathan Morataya, past medical history of aortic stenosis, hypertension, hyperlipidemia, family history of coronary artery disease, diabetes mellitus with neuropathy, previous tobacco dependence, occasional EtOH use, basal cell skin carcinoma, osteoarthritis, status post right and left hip replacement, with postoperative infections wiring IV antibiotic infusions per Dr. Ricci. Patient been experiencing exertional dyspnea over the previous 4-6 months, and any syncopal episodes, denied any chest pain. Ration underwent CARMELA and left heart catheterization by Dr. Messina, and the CARMELA showed a 3 leaflet aortic valve with heavy calcification and severe restriction, history of aortic stenosis, trace mitral regurg, mild tricuspid regurg, concentric left ventricular hypertrophy with preserved left ventricular function. The catheterization showed a calcified left main coronary artery without significant stenosis, right coronary artery with proximal stenosis of 40-50% and mid stenosis 70-80% and 30-40% stenosis in the circumflex coronary artery. Preop PFT showed FEV1 of 1.83 L or 56% of predicted , with a forced vital capacity of 2.86 L or 64% of predicted, consistent with moderately severe restriction. 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 Today on 12/02/2018 patient seen in the intensive care unit, in the postoperative period, status post 1 vessel coronary artery bypass, SVG to the RCA, and aortic valve replacement using a bioprosthetic valve. Patient is that it, intubated on mechanical ventilator, current vent settings are SIMV mode with a rate of 12, tidal volume of 580, FiO2 100% and PEEP of 10. Patient was placed on assist-control mode with the same rate and tidal volume and FiO2. Patient is DDD paced, rate of 80 BPM. Current IV drips include lactated Ringer's at a rate of 50 ML per hour, Diprivan at 25 mics per kilo per minute, insulin is a 5 units per hour, nitroglycerin is at 5 mics per kilo per minute. Midsternal incision is clean dry and intact, 2 mediastinal chest tubes connected to Pleur-evac, with 60 mL of serosanguineous output, right pleural chest tube with minimal sanguis output in the Pleur-evac. Postop chest x-ray has been reviewed with Dr. Granda, shows left basal atelectasis, ET tube, NG tube PA catheter are in good locations. Postoperative blood work is pending. On 12/03/2018 patient seen in follow-up in the intensive care unit, patient was extubated at 2130 last night. Currently on 3 L per nasal cannula, pulse ox of 94%, afebrile, in sinus mechanism, with a rate of 74 BPM, blood pressure is 133/ 41, PA pressures of 19/13, with a CVP of 9, cardiac output is 5.9, and cardiac index is 2.4. Maintenance IV fluids are lactated Ringer's at 50 ML per hour,: Percocet 5 mg per hour, and insulin is at 5.5 units per hour. This is postop day 1 post one-vessel CABG, SVG to the RCA, and aortic valve replacement with a bioprosthetic valve. he is awake and alert, he needs it quite a bit of encouragement with deep breathing and coughing, and use of incentive spirometer , lung sounds are positive for crackles at the left lower base, otherwise clear. Incentive spirometer effort is 750 ML today. Today's chest x-ray was reviewed with Dr. Post, and showed left basilar atelectasis, chest tubes and PA catheter are in appropriate positions, with interval removal of the ET tube and OG tube. Today's labs have been reviewed, white blood cell count is 9.1, hemoglobin is 8.7, INR is 1.0, sodium is 143, potassium is 4.7, chloride is 113 , CO2 is 25 BUN is 20, creatinine is 1.32. AST was up slightly to 105 from 82, ALT was 44, alkaline phosphatase was 40. On 12/04/2018 patient seen in follow-up in the intensive care unit, sitting up in a chair. In no acute distress, currently on 2 L per nasal cannula, pulse ox is 98%, afebrile, hemodynamically stable. PA catheter has been discontinued. Lung sounds are clear to auscultation, today's chest x-ray has been reviewed with Dr. Granda. It showed left basilar atelectasis, and mild pulmonary vessel congestion. The patient is calm and comfortable, no dyspnea, incentive spirometer effort is 750 ML today. IV fluids are lactated Ringer's a rate of 40 ML per hour, insulin drip is at 5 units per hour. Mediastinal chest tube and right chest tubes are in place, and there has been 160 mL out of the mediastinal chest tubes, and to 12 mL out of the right pleural. Today's labs have been reviewed, white blood cell count is 8.4, hemoglobin is 7.7, sodium is 138, potassium is 4.7, chloride is 109, BUN is 24 creatinine is 1.2. On 12/05/2018 patient seen in follow-up in the intensive care unit. Patient is resting in bed, in no acute distress, currently on 3 L per nasal cannula his pulse ox is 95%, afebrile, hemodynamically stable. Patient did sustain a fall last night when he got up out of the chair unassisted, he does have a small contusion and abrasion on his left forehead, loss of consciousness, CT brain and cervical spine was done and showed cerebral atrophy and chronic small vessel ischemia, no acute intracranial abnormality, mild degenerative changes in the cervical spine, no fracture was seen. This morning patient is awake and alert, oriented 3, no signs of delirium. No difficulty breathing, patient is able to achieve 1000 ML in his incentive spirometer today. Chest tubes have been discontinued. Lung sounds are equal breath sounds bilaterally, with some scattered rhonchi. Sinus rhythm with a controlled rate. Today's labs have been noted, white blood cell count is 9.3, hemoglobin is 7.2, sodium was 138, potassium is 4.9, chloride was 107, CO2 is 26, BUN is 29, creatinine is 1.07. Patient is tolerating regular diet. Patient is seen again today 12/06/2018 in follow-up in the intensive care unit. He is currently awake and alert in no acute distress. Resting quite comfortably in bed. He was up in the chair earlier this morning. He denies any worsening shortness of breath, cough or congestion. He is working well with the incentive spirometer. Maintaining good O2 saturations in the mid 90s on 3 L/m per nasal cannula. He is afebrile. Hemodynamically stable. Chest x- ray reveals stable findings with a persistent small left pleural effusion with associated atelectasis. Ultrasound revealed a pocket of only 3.5 cm. No plans for thoracentesis at this time. White count 8.3. Hemoglobin 7.6. Platelet count 139,000. Creatinine 1.09. Objective - Vital Signs Vital signs: Vital Signs Temp 98 F 12/06/18 08:00 Pulse 84 12/06/18 08:00 Resp 16 12/06/18 08:00 BP 132/51 12/06/18 08:00 Pulse Ox 96 12/06/18 08:19 Intake & Output 12/05/18 12/06/18 12/06/18 18:59 06:59 18:59 Intake Total 676 246 260 Output Total 1815 200 400 Balance -1139 46 -140 Weight 135 kg Intake: IV 276 246 20 Lactated Ringers 1,000 ml 240 240 20 @ 20 mls/hr IV .Q24H GAETANO Rx#:[id number] PRESSURE BAGS 36 6 Oral 400 240 Output: Chest Tube Drainage 190 RIGHT PLEURAL 190 Urine 1625 200 400 Other: Voiding Method Urinal Urinal # Voids 1 ABP, PAP, CO, CI - Last Documented Arterial Blood Pressure 189/45 Pulmonary Artery Pressure 25/17 Cardiac Output 5.9 Cardiac Index 2.4 - Exam GENERAL EXAM: 68-year-old obese male patient, resting comfortably in bed, no acute distress, on 3 L per nasal cannula HEAD: Normocephalic/atraumatic. Left forehead small abrasion and contusion EYES: Normal reaction of pupils, equal size. Conjunctiva pink, sclera white. NOSE: Clear with pink turbinates. THROAT: No erythema or exudates. NECK: No masses, no JVD, no thyroid enlargement, no adenopathy. CHEST: No chest wall deformity. Symmetrical expansion. Midsternal incision is clean dry and intact LUNGS: Equal air entry with diminished breath sounds at the left base, scattered rhonchi CVS: Regular rate and rhythm, normal S1 and S2, no gallops, no murmurs, no rubs ABDOMEN: Soft, nontender. No hepatosplenomegaly, normal bowel sounds, no guarding or rigidity. EXTREMITIES: No clubbing, no edema, no cyanosis, 2+ pulses and upper and lower extremities. Right lower extremity site is wrapped with Dov wraps, SCDs on bilateral lower extremities MUSCULOSKELETAL: Muscle strength and tone normal. SPINE: No scoliosis or deformity SKIN: No rashes CENTRAL NERVOUS SYSTEM: No focal deficits, tone is normal in all 4 extremities. - Labs CBC & Chem 7: 12/06/18 05:34 12/06/18 05:34 Labs: Abnormal Lab Results - Last 24 Hours (Table) 12/05/18 12/05/18 12/05/18 Range/Units 11:57 17:07 20:14 RBC (4.30-5.90) m/uL Hgb (13.0-17.5) gm/dL Hct (39.0-53.0) % MCV (80.0-100.0) fL MCH (25.0-35.0) pg Plt Count (150-450) k/uL BUN (9-20) mg/dL Glucose (74-99) mg/dL POC Glucose (mg/dL) 190 H 266 H 238 H (75-99) mg/dL Calcium (8.4-10.2) mg/dL Magnesium (1.6-2.3) mg/dL AST (17-59) U/L Total Protein (6.3-8.2) g/dL Albumin (3.5-5.0) g/dL 12/06/18 12/06/18 12/06/18 Range/Units 02:03 05:34 05:34 RBC 2.15 L (4.30-5.90) m/uL Hgb 7.6 L (13.0-17.5) gm/dL Hct 21.9 L (39.0-53.0) % MCV 101.9 H (80.0-100.0) fL MCH 35.4 H (25.0-35.0) pg Plt Count 139 L (150-450) k/uL BUN 28 H (9-20) mg/dL Glucose 143 H (74-99) mg/dL POC Glucose (mg/dL) 186 H (75-99) mg/dL Calcium 8.1 L (8.4-10.2) mg/dL Magnesium 2.6 H (1.6-2.3) mg/dL AST 107 H (17-59) U/L Total Protein 5.0 L (6.3-8.2) g/dL Albumin 2.8 L (3.5-5.0) g/dL 12/06/18 Range/Units 06:54 RBC (4.30-5.90) m/uL Hgb (13.0-17.5) gm/dL Hct (39.0-53.0) % MCV (80.0-100.0) fL MCH (25.0-35.0) pg Plt Count (150-450) k/uL BUN (9-20) mg/dL Glucose (74-99) mg/dL POC Glucose (mg/dL) 168 H (75-99) mg/dL Calcium (8.4-10.2) mg/dL Magnesium (1.6-2.3) mg/dL AST (17-59) U/L Total Protein (6.3-8.2) g/dL Albumin (3.5-5.0) g/dL Assessment and Plan Assessment: Assessment: #1. Severe symptomatic aortic valve stenosis and coronary artery disease, status post aortic valve replacement and one-vessel bypass, SVG to the RCA,post op day 4 #2. Postoperative ventilator management, he was successfully extubated last night on 12/02/2018 at 2130, tolerated extubation quite well, on 3 L per nasal cannula #3. Postop blood loss anemia, and expected outcome of bypass surgery, and aortic valve replacement surgery #4. Diabetes mellitus with diabetic neuropathy #5. Hypertension, hyperlipidemia #6. Morbid obesity #7. Osteoarthritis #8. Release episodes of pneumonia #9. Postoperative infections owing left total hip arthroplasty, and right total hip arthroplasty,requiring IV antibiotic infusions maintenance dose of oral doxycycline Plan: The patient was seen and evaluated by Dr. Granda. Chest x-ray and labs were reviewed. Ultrasound review. No plans for thoracentesis of a small left pleural effusion. We will increase his activity as tolerated. Increase use the incentive spirometer and cough and deep breathing exercises. Plan is to transfer to the selective care unit once a bed is available. We'll continue to follow and make further recommendations based on his clinical status. I, the cosigning physician, performed a history & physical examination of the patient. Lungs sounds crackles in left posterior base, few scattered rhonchi. Maintaining good O2 saturations in the 90s on 3 L/m per nasal cannula. I discussed the assessment and plan of care with my nurse practitioner, Paty Leung. I attest to the above note as dictated by her.
--- NOTE | 2018-12-06 10:34 | P.PN ---
Subjective 68-year-old male one of Dr. Graham patient with past medical history of aortic stenosis, hypertension, hyperlipidemia, history of diabetes, severe GERD chronic edema mild depression who has been experiencing exertional dyspnea over the last 6 month without any syncopal episode denies any chest pain. Patient subsequently seen cardiology transesophageal echocardiogram and heart catheter revealed severe calcified aortic valve stenosis with severe restriction also patient had trace mitral regurgitation. 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 Patient was seen pulmonary PFT performed and showed mild obstructive lung disease patient ended up being hospitalized for elective surgery today successfully and ended up having one-vessel coronary artery bypass saphenous to the RCA and aortic valve replacement using bioprosthetic valve. Patient was admitted to the intensive care unit still on mechanical ventilation still on induced coma this point chest tube is in place. 12/03: Patient is extubated sitting in the chair doing well still have soreness and discomfort from the incision site, blood sugar is in the low 100 still on insulin drip close to 4.5 units an hour. Patient respiratory status is much better so far. No arrhythmia or A. fib. 12/04: Patient remains in the intensive care unit. This morning's blood sugars are running high and he will be started on home insulins but at a lower dose. Lantus will be at 40 units at bedtime tonight and insulin drip will be discontinued, NovoLog 12 units scheduled with meals and scale. Patient has been seen by Dr. Ricci with recommendations to continue his normal dose of chronic doxycycline. 12/05: Blood sugars are now running in the 200s up to 284 and Levemir 20 units in the morning added to his scheduled 40 units at bedtime along with NovoLog increased from 12 units with meals to 15 units with meals along with NovoLog scale to be continued. Leonard is out, patient is waiting to void. right sidedChest tube remains in place. Patient denies any chest pain or shortness of breath. 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 case management and social service liaison following for possible inpatient rehab or second choice would be [facility]. 12/06: This is postop day 4 for patient status post aortic valve placement and coronary artery bypass grafting 1. Patient's doing well, noted to be sitting up in bed. Does complain of some chest discomfort related to postsurgical pain. Incentive spirometer at bedside encouraged to use. Blood sugars running 200s to 160s, no adjustments are made on his insulin today. Right chest tube in place, with plans for removal today. Objective - Vital Signs Vital signs: Vital Signs Temp 98 F 12/06/18 08:00 Pulse 84 12/06/18 08:00 Resp 16 12/06/18 08:00 BP 132/51 12/06/18 08:00 Pulse Ox 96 12/06/18 08:00 Intake & Output 12/05/18 12/06/18 12/06/18 18:59 06:59 18:59 Intake Total 676 246 20 Output Total 1815 200 Balance -1139 46 20 Weight 135 kg Intake: IV 276 246 20 Lactated Ringers 1,000 ml 240 240 20 @ 20 mls/hr IV .Q24H [facility] Rx#:[id number] PRESSURE BAGS 36 6 Oral 400 Output: Chest Tube Drainage 190 RIGHT PLEURAL 190 Urine 1625 200 Other: Voiding Method Urinal Urinal # Voids 1 ABP, PAP, CO, CI - Last Documented Arterial Blood Pressure 189/45 Pulmonary Artery Pressure 25/17 Cardiac Output 5.9 Cardiac Index 2.4 - Constitutional General appearance: Present: cooperative, no acute distress, obese - EENT Eyes: Present: EOMI, PERRLA, normal appearance - Neck Neck: Present: normal ROM. Absent: lymphadenopathy, stridor, thyromegaly - Respiratory Respiratory: bilateral: CTA (Right sided chest tube ), diminished, negative: rales, rhonchi, wheezing - Cardiovascular Rhythm: regular Heart sounds: normal: S1, S2 - Gastrointestinal General gastrointestinal: Present: normal bowel sounds, soft. Absent: distended , hepatomegaly, organomegaly, splenomegaly, tenderness - Neurologic Neurologic: Present: CNII-XII intact. Absent: focal deficits - Musculoskeletal Musculoskeletal: Present: generalized weakness, strength equal bilaterally. Absent: right sided weakness, left sided weakness - Psychiatric Psychiatric: Present: A&O x's 3, appropriate affect - Labs CBC & Chem 7: 12/06/18 05:34 12/06/18 05:34 Labs: Abnormal Lab Results - Last 24 Hours (Table) 12/05/18 12/05/18 12/05/18 Range/Units 11:57 17:07 20:14 RBC (4.30-5.90) m/uL Hgb (13.0-17.5) gm/dL Hct (39.0-53.0) % MCV (80.0-100.0) fL MCH (25.0-35.0) pg Plt Count (150-450) k/uL BUN (9-20) mg/dL Glucose (74-99) mg/dL POC Glucose (mg/dL) 190 H 266 H 238 H (75-99) mg/dL Calcium (8.4-10.2) mg/dL Magnesium (1.6-2.3) mg/dL AST (17-59) U/L Total Protein (6.3-8.2) g/dL Albumin (3.5-5.0) g/dL 12/06/18 12/06/18 12/06/18 Range/Units 02:03 05:34 05:34 RBC 2.15 L (4.30-5.90) m/uL Hgb 7.6 L (13.0-17.5) gm/dL Hct 21.9 L (39.0-53.0) % MCV 101.9 H (80.0-100.0) fL MCH 35.4 H (25.0-35.0) pg Plt Count 139 L (150-450) k/uL BUN 28 H (9-20) mg/dL Glucose 143 H (74-99) mg/dL POC Glucose (mg/dL) 186 H (75-99) mg/dL Calcium 8.1 L (8.4-10.2) mg/dL Magnesium 2.6 H (1.6-2.3) mg/dL AST 107 H (17-59) U/L Total Protein 5.0 L (6.3-8.2) g/dL Albumin 2.8 L (3.5-5.0) g/dL 12/06/18 Range/Units 06:54 RBC (4.30-5.90) m/uL Hgb (13.0-17.5) gm/dL Hct (39.0-53.0) % MCV (80.0-100.0) fL MCH (25.0-35.0) pg Plt Count (150-450) k/uL BUN (9-20) mg/dL Glucose (74-99) mg/dL POC Glucose (mg/dL) 168 H (75-99) mg/dL Calcium (8.4-10.2) mg/dL Magnesium (1.6-2.3) mg/dL AST (17-59) U/L Total Protein (6.3-8.2) g/dL Albumin (3.5-5.0) g/dL Assessment and Plan Plan: 1 post aortic valve placement for severe calcified aortic valve stenosis patient had bioprosthetic valve successful surgery, postop day 4, patient doing well continue with current plan of care. 2 post one-vessel bypass surgery with saphenous to the RCA: Stable and doing well. Patient remains in the ICU but is stepdown overflow 3 diabetes mellitus type II, requiring insulin uncontrolled secondary to hyperglycemia. Levemir 20 units in the morning, 40 units at bedtime along with NovoLog 15 units with meals along with NovoLog scale to be continued medication adjusted yesterday, glucose running 160s to 200s, no adjustments made today. 4 arrhythmia: Patient was on amiodarone drip prophylaxis discontinued. 5 hyperlipidemia: Remain on atorvastatin 40 mg daily. 6 stage II chronic kidney disease: Daily lab and continue hydration. 7 mild abnormal liver function test: Which most likely hypoperfusion post surgery, labs trending downwards. 8 hypertension: Patient was started on hydralazine was using at home along with metoprolol resume both medication. 9 chronic pain syndrome: Patient will be back on his oral hydrocodone and tramadol. 10 GI prophylaxis: Patient remain on pantoprazole. 11. Acute blood loss anemia, expected with surgery. Discharge plan: inpatient rehab or subacute rehab ([facility]). The above impression and plan of care have been discussed and directed by signing physician. Shante Whitman nurse practitioner acting as scribe for signing physician.
[2018-12-06] MEDS: CHOLECALCIFEROL 1,000 UNIT TAB PO SCH (11:44)
[2018-12-06] MEDS: LISINOPRIL 5 MG TAB PO SCH (11:44)
[2018-12-06 12:20] LABS: Glucose,Whole Blood 135 mg/dL (75-99)
[2018-12-06 12:20] LABS: Glucose,Whole Blood 121 mg/dL (75-99)
--- NOTE | 2018-12-06 13:01 | PN ---
PROGRESS NOTE Mr. Morales is 68-year-old male who underwent coronary bypass grafting and aortic valve replacement. He is doing well this morning. He is feeling well. He is denying any chest pain. Denying any dizziness. He continued be in sinus mechanism. He denies any nausea. He continues to be on aspirin once a day, Lipitor 40 mg daily, Plavix 75 mg daily, insulin, lisinopril 5 mg daily, metoprolol tartrate 25 mg twice a day. PHYSICAL EXAMINATION: Blood pressure 109/50 with a heart in the 80s LUNGS: A few crackles at the bases. HEART: Regular rate and rhythm, S1, S2. No S3 with systolic murmur. No rub. ABDOMEN: Soft, nontender. EXTREMITIES: No significant edema. LAB DATA: Revealed a hemoglobin 7.6. A BUN and creatinine of 28 and 1.09. IMPRESSION: 1. Status post aortic valve replacement with single bypass. 2. Hyperlipidemia. 3. Diabetes. 4. Hypertension. RECOMMENDATION: From the cardiac standpoint, he is stable. Will continue present therapy. Continue to increase his level of activity. Continue incentive spirometry and depending on his progress, further recommendation will be made. MMODL / IJN: [id number] /
[2018-12-06 16:59] LABS: Glucose,Whole Blood 107 mg/dL (75-99)
[2018-12-06 21:05] LABS: Glucose,Whole Blood 155 mg/dL (75-99)
[2018-12-06] MEDS: SENNOSIDES-DOCUSATE SODIUM 1 EACH TAB PO SCH (21:22)
[2018-12-07] MEDS: ACETAMINOPHEN TAB 325 MG TAB PO PRN ×3 (00:08→16:58)
[2018-12-07] MEDS: HEPARIN SODIUM,PORCINE 5,000 UNIT/ML 1 ML VIAL SQ SCH ×4 (00:08→23:10)
[2018-12-07 02:26] LABS: Glucose,Whole Blood 162 mg/dL (75-99)
[2018-12-07] MEDS: INSULIN ASPART 100 UNIT/ML 1 ML 10 ML VIAL SQ SCH ×8 (02:58→20:49)
[2018-12-07 06:26] LABS: Albumin 2.8 g/dL (3.5-5.0); Calcium 8.2 mg/dL (8.4-10.2); HCT 22.8 % (39.0-53.0); MCH 34.4 pg (25.0-35.0); MCV 98.3 fL (80.0-100.0); Macrocytosis Slight; Mean Platelet Volume 7.8; Platelet Count 170 k/uL (150-450); Poikilocytosis Moderate; RBC 2.32 m/uL (4.30-5.90); RDW 15.2 % (11.5-15.5); Total Protein 5.1 g/dL (6.3-8.2); WBC 8.9 k/uL (3.8-10.6)
[2018-12-07 06:28] LABS: Magnesium 2.7 mg/dL (1.6-2.3); Potassium 4.8 mmol/L (3.5-5.1)
[2018-12-07 06:30] LABS: Glucose,Whole Blood 98 mg/dL (75-99)
--- NOTE | 2018-12-07 07:26 | XR ---
EXAMINATION TYPE: XR chest 2V DATE OF EXAM: 12/07/2018 COMPARISON: 12/06/2018 HISTORY: Shortness of breath TECHNIQUE: Frontal and lateral views of the chest are obtained. FINDINGS: Scattered senescent parenchymal changes noted. Hyperinflation compatible with COPD. Sided chest tube has been. No evidence for pneumothorax. Left basilar infiltrate and/or atelectasis noted. Suspect small effusions. Heart size is stable. Mediastinal structures are stable and grossly unremarkable. No evidence for hilar prominence. Degenerative changes dorsal spine. IMPRESSION: 1. Left basilar infiltrate and/or atelectasis noted. Suspect small effusions.
[2018-12-07] MEDS ORDERED: FUROSEMIDE 10 MG/ML 4 ML VIAL IV ONE (07:42)
--- NOTE | 2018-12-07 07:52 | P.PN ---
Subjective Progress Note Date: 12/07/18 Principal diagnosis: Severe aortic valve stenosis, coronary artery disease. Previous medical history of hypertension, hyperlipidemia, family history of coronary artery disease, diabetes mellitus with neuropathy with preoperative hemoglobin A1c 6.3% , previous tobacco dependence, moderate COPD with preoperative FEV1 56% of predicted, morbid obesity, rare EtOH use, depression, shingles, basal cell skin carcinoma diagnosed in 2016 and 2017, osteoarthritis, both right and left hip replacements with postoperative infections and subsequent IV antibiotics per Dr. Ricci. POD #5 aortic valve replacement using 23 mm Pelaez magna ease bioprosthetic valve. Coronary artery bypass grafting 1 vessel, as reverse saphenous vein graft to the right coronary artery. Endoscopic vein harvest, right greater saphenous vein. Epi-aortic ultrasound. Intraoperative transesophageal echocardiogram. Closure of the sternum using Warren cable system. Postoperative acute blood loss anemia, an expected outcome of surgery secondary to cardiopulmonary bypass pump and hemodilution. Postoperative fall from standing without loss of consciousness and without injury, an expected outcome. The patient's currently sitting up in a recliner in no acute distress. Denies pain, shortness of breath. Has been weaned off oxygen to room air. Hemodynamically stable on no inotropes or pressors. Right pleural chest tube discontinued yesterday. Requiring less assist with ambulation but still not ambulating in the hallway. Transfer orders were placed yesterday for 3 S. cardiac stepdown unit, no bed available. Objective - Vital Signs Vital signs: Vital Signs Temp 97.9 F 12/07/18 04:00 Pulse 67 12/07/18 04:00 Resp 14 12/07/18 04:00 BP 132/48 12/07/18 04:00 Pulse Ox 98 12/07/18 04:00 Intake & Output 12/06/18 12/07/18 12/07/18 18:59 06:59 18:59 Intake Total 740 Output Total 1100 721 Balance -360 -721 Weight 128.6 kg Intake: IV 20 Lactated Ringers 1,000 ml 20 @ 20 mls/hr IV .Q24H [facility] Rx#:[id number] Oral 720 Output: Urine 1100 600 Stool 1 Emesis 120 Other: Voiding Method Urinal Urinal # Voids 0 ABP, PAP, CO, CI - Last Documented Arterial Blood Pressure 189/45 Pulmonary Artery Pressure 25/17 Cardiac Output 5.9 Cardiac Index 2.4 - Constitutional General appearance: Present: cooperative, no acute distress, obese - Respiratory Details: Lungs sounds diminished bilaterally, left greater than right. Respirations even , nonlabored. Currently on room air with oxygen saturation 98%. Able to achieve 1000 mL on his incentive spirometry. Strong productive cough. - Cardiovascular Details: S1, S2 present. Regular rate and rhythm, sinus rhythm on telemetry. A/V epicardial pacemaker wires present, grounded. Sternum stable. Palpable peripheral pulses bilaterally. No edema present. No calf pain or tenderness noted. Heart hugger in place with patient demonstrating appropriate use with encouragement. Antiembolism stockings, SCDs present. - Gastrointestinal Gastrointestinal Comment(s): Abdomen soft, nontender, nondistended, obese. Active bowel sounds present 4 quadrants. Tolerating diet. Positive bowel movement this morning. - Genitourinary Genitourinary Comment(s): Patient continues to void clear, yellow urine, output 300 mL in the last 8 hours. - Integumentary Integumentary Comment(s): Skin is warm and dry with evidence of good perfusion. Anterior chest incision well approximated and covered with dry intact dressing. Right lower extremity EVH site well approximated with Dermabond. - Neurologic Neurologic: Present: CNII-XII intact - Musculoskeletal Musculoskeletal: Present: gait normal, generalized weakness, strength equal bilaterally - Psychiatric Psychiatric: Present: A&O x's 3, appropriate affect, intact judgment & insight - Allied health notes Allied health notes reviewed: nursing - Labs CBC & Chem 7: 12/07/18 05:46 12/07/18 05:46 Labs: Abnormal Lab Results - Last 24 Hours (Table) 12/06/18 12/06/18 12/06/18 Range/Units 11:46 12:06 16:57 RBC (4.30-5.90) m/uL Hgb (13.0-17.5) gm/dL Hct (39.0-53.0) % Chloride (98-107) mmol/L BUN (9-20) mg/dL POC Glucose (mg/dL) 135 H 121 H 107 H (75-99) mg/dL Calcium (8.4-10.2) mg/dL Magnesium (1.6-2.3) mg/dL AST (17-59) U/L Total Protein (6.3-8.2) g/dL Albumin (3.5-5.0) g/dL 12/06/18 12/07/18 12/07/18 Range/Units 21:03 02:25 05:46 RBC 2.32 L (4.30-5.90) m/uL Hgb 8.0 L (13.0-17.5) gm/dL Hct 22.8 L (39.0-53.0) % Chloride (98-107) mmol/L BUN (9-20) mg/dL POC Glucose (mg/dL) 155 H 162 H (75-99) mg/dL Calcium (8.4-10.2) mg/dL Magnesium (1.6-2.3) mg/dL AST (17-59) U/L Total Protein (6.3-8.2) g/dL Albumin (3.5-5.0) g/dL 12/07/18 Range/Units 05:46 RBC (4.30-5.90) m/uL Hgb (13.0-17.5) gm/dL Hct (39.0-53.0) % Chloride 110 H (98-107) mmol/L BUN 29 H (9-20) mg/dL POC Glucose (mg/dL) (75-99) mg/dL Calcium 8.2 L (8.4-10.2) mg/dL Magnesium 2.7 H (1.6-2.3) mg/dL AST 83 H (17-59) U/L Total Protein 5.1 L (6.3-8.2) g/dL Albumin 2.8 L (3.5-5.0) g/dL - Imaging and Cardiology Chest x-ray: report reviewed, image reviewed Assessment and Plan (1) Morbid obesity Current Visit: Yes Status: Chronic Code(s): E66.01 - MORBID (SEVERE) OBESITY DUE TO EXCESS CALORIES SNOMED Code(s): 999075879 (2) COPD (chronic obstructive pulmonary disease) Current Visit: Yes Status: Chronic Code(s): J44.9 - CHRONIC OBSTRUCTIVE PULMONARY DISEASE, UNSPECIFIED SNOMED Code(s): 51893623 (3) Family history of coronary artery disease Current Visit: Yes Status: Chronic Code(s): Z82.49 - FAMILY HX OF ISCHEM HEART DIS AND OTH DIS OF THE CIRC SYS SNOMED Code(s): 826304378 (4) Coronary artery disease Current Visit: Yes Status: Chronic Code(s): I25.10 - ATHSCL HEART DISEASE OF [place] CORONARY ARTERY W/O ANG PCTRS SNOMED Code(s): 21495032 (5) Aortic stenosis Current Visit: Yes Status: Chronic Code(s): I35.0 - NONRHEUMATIC AORTIC ( VALVE) STENOSIS SNOMED Code(s): 01356036 (6) Diabetes mellitus Current Visit: Yes Status: Chronic Code(s): E11.9 - TYPE 2 DIABETES MELLITUS WITHOUT COMPLICATIONS SNOMED Code(s): 18007236 (7) Hyperlipidemia Current Visit: Yes Status: Chronic Code(s): E78.5 - HYPERLIPIDEMIA, UNSPECIFIED SNOMED Code(s): 77069687 (8) Hypertension Current Visit: Yes Status: Chronic Code(s): I10 - ESSENTIAL (PRIMARY) HYPERTENSION SNOMED Code(s): 39693403 (9) Osteoarthritis Current Visit: Yes Status: Chronic Code(s): M19.90 - UNSPECIFIED OSTEOARTHRITIS, UNSPECIFIED SITE SNOMED Code(s): 012977291 (10) Tobacco dependence in remission Current Visit: No Status: Resolved Code(s): F17.201 - NICOTINE DEPENDENCE, UNSPECIFIED, IN REMISSION SNOMED Code(s): 560564744 Plan: 1. Continue aspirin, statin, Plavix, DARWIN inhibitor, beta paul therapy. Will increase beta paul therapy as tolerated. 2. Encourage incentive spirometry is 10 times every hour while awake. Encourage continued smoking cessation. 3. Increase activity. Encourage ambulation. PT/OT/cardiac rehab following. 4. Lasix 40 mg IV push 1 today. 5. Monitor daily labs and x-rays. Electrolyte replacement per protocol. No transfusion at this time. 6. Pain control with current medication regimen. No narcotics. 7. Bronchodilators per pulmonology. Ultrasound of left chest completed, small left pleural effusion with 3.5 cm pocket not marked for thoracentesis as lung noted within the fluid pocket. 8. GI prophylaxis with Protonix, DVT prophylaxis with subcu heparin, SCDs. 9. Continue daily doxycycline, patient is on lifetime antibiotics per Dr. Ricci for postoperative infections after hip surgeries. Will consult Dr. Ricci for any further recommendations. 10. Insulin management per primary care service. 11. Transfer orders placed for 3 S. cardiac stepdown unit yesterday. May transfer when bed available. 12. Anticipate discharge in the next 24 hours to [facility]. 13. More recommendations to follow. Time with Patient: Greater than 30
--- NOTE | 2018-12-07 08:04 | P.PN ---
Subjective Progress Note Date: 12/07/18 Principal diagnosis: Severe aortic valve stenosis, coronary artery disease, status post aortic valve replacement, and one-vessel bypass grafting This is 68-year-old white male patient of Dr. Jonathan Morataya, past medical history of aortic stenosis, hypertension, hyperlipidemia, family history of coronary artery disease, diabetes mellitus with neuropathy, previous tobacco dependence, occasional EtOH use, basal cell skin carcinoma, osteoarthritis, status post right and left hip replacement, with postoperative infections wiring IV antibiotic infusions per Dr. Ricci. Patient been experiencing exertional dyspnea over the previous 4-6 months, and any syncopal episodes, denied any chest pain. Ration underwent CARMELA and left heart catheterization by Dr. Messina, and the CARMELA showed a 3 leaflet aortic valve with heavy calcification and severe restriction, history of aortic stenosis, trace mitral regurg, mild tricuspid regurg, concentric left ventricular hypertrophy with preserved left ventricular function. The catheterization showed a calcified left main coronary artery without significant stenosis, right coronary artery with proximal stenosis of 40-50% and mid stenosis 70-80% and 30-40% stenosis in the circumflex coronary artery. Preop PFT showed FEV1 of 1.83 L or 56% of predicted , with a forced vital capacity of 2.86 L or 64% of predicted, consistent with moderately severe restriction. 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 Today on 12/02/2018 patient seen in the intensive care unit, in the postoperative period, status post 1 vessel coronary artery bypass, SVG to the RCA, and aortic valve replacement using a bioprosthetic valve. Patient is that it, intubated on mechanical ventilator, current vent settings are SIMV mode with a rate of 12, tidal volume of 580, FiO2 100% and PEEP of 10. Patient was placed on assist-control mode with the same rate and tidal volume and FiO2. Patient is DDD paced, rate of 80 BPM. Current IV drips include lactated Ringer's at a rate of 50 ML per hour, Diprivan at 25 mics per kilo per minute, insulin is a 5 units per hour, nitroglycerin is at 5 mics per kilo per minute. Midsternal incision is clean dry and intact, 2 mediastinal chest tubes connected to Pleur-evac, with 60 mL of serosanguineous output, right pleural chest tube with minimal sanguis output in the Pleur-evac. Postop chest x-ray has been reviewed with Dr. Granda, shows left basal atelectasis, ET tube, NG tube PA catheter are in good locations. Postoperative blood work is pending. On 12/03/2018 patient seen in follow-up in the intensive care unit, patient was extubated at 2130 last night. Currently on 3 L per nasal cannula, pulse ox of 94%, afebrile, in sinus mechanism, with a rate of 74 BPM, blood pressure is 133/ 41, PA pressures of 19/13, with a CVP of 9, cardiac output is 5.9, and cardiac index is 2.4. Maintenance IV fluids are lactated Ringer's at 50 ML per hour,: Percocet 5 mg per hour, and insulin is at 5.5 units per hour. This is postop day 1 post one-vessel CABG, SVG to the RCA, and aortic valve replacement with a bioprosthetic valve. he is awake and alert, he needs it quite a bit of encouragement with deep breathing and coughing, and use of incentive spirometer , lung sounds are positive for crackles at the left lower base, otherwise clear. Incentive spirometer effort is 750 ML today. Today's chest x-ray was reviewed with Dr. Post, and showed left basilar atelectasis, chest tubes and PA catheter are in appropriate positions, with interval removal of the ET tube and OG tube. Today's labs have been reviewed, white blood cell count is 9.1, hemoglobin is 8.7, INR is 1.0, sodium is 143, potassium is 4.7, chloride is 113 , CO2 is 25 BUN is 20, creatinine is 1.32. AST was up slightly to 105 from 82, ALT was 44, alkaline phosphatase was 40. On 12/04/2018 patient seen in follow-up in the intensive care unit, sitting up in a chair. In no acute distress, currently on 2 L per nasal cannula, pulse ox is 98%, afebrile, hemodynamically stable. PA catheter has been discontinued. Lung sounds are clear to auscultation, today's chest x-ray has been reviewed with Dr. Granda. It showed left basilar atelectasis, and mild pulmonary vessel congestion. The patient is calm and comfortable, no dyspnea, incentive spirometer effort is 750 ML today. IV fluids are lactated Ringer's a rate of 40 ML per hour, insulin drip is at 5 units per hour. Mediastinal chest tube and right chest tubes are in place, and there has been 160 mL out of the mediastinal chest tubes, and to 12 mL out of the right pleural. Today's labs have been reviewed, white blood cell count is 8.4, hemoglobin is 7.7, sodium is 138, potassium is 4.7, chloride is 109, BUN is 24 creatinine is 1.2. On 12/05/2018 patient seen in follow-up in the intensive care unit. Patient is resting in bed, in no acute distress, currently on 3 L per nasal cannula his pulse ox is 95%, afebrile, hemodynamically stable. Patient did sustain a fall last night when he got up out of the chair unassisted, he does have a small contusion and abrasion on his left forehead, loss of consciousness, CT brain and cervical spine was done and showed cerebral atrophy and chronic small vessel ischemia, no acute intracranial abnormality, mild degenerative changes in the cervical spine, no fracture was seen. This morning patient is awake and alert, oriented 3, no signs of delirium. No difficulty breathing, patient is able to achieve 1000 ML in his incentive spirometer today. Chest tubes have been discontinued. Lung sounds are equal breath sounds bilaterally, with some scattered rhonchi. Sinus rhythm with a controlled rate. Today's labs have been noted, white blood cell count is 9.3, hemoglobin is 7.2, sodium was 138, potassium is 4.9, chloride was 107, CO2 is 26, BUN is 29, creatinine is 1.07. Patient is tolerating regular diet. On 11/06/2018 patient seen in follow-up in the intensive care unit, he is awake and alert, oriented 3, sitting up in the recliner, on room air. Afebrile, hemodynamically stable, denies any dyspnea, his pain is under good control, chest tubes have been discontinued, epicardial wires are grounded. Lung sounds are positive for a few scattered rhonchi, patient has a good strong effective cough. Today's chest x-ray has been reviewed, with Dr. Post comments shows left basilar infiltrate/atelectasis, with small bilateral pleural effusions. Ultrasound of the chest done on 12/05/2018 showed left pleural effusion pocket of 3.5 cm, and right pleural effusion pocket of 0.96 cm, not enough to drain. Incentive spirometer effort is 4702-7331 ML today. Patient has been diuresing, was given IV dose of Lasix yesterday, and today, negative fluid balance, -1081 mL over last 24 hours. Today's labs have been reviewed, with blood cell count was 8.9, hemoglobin of 8.0, sodium is 142, potassium 4.8, chloride is 110, CO2 is 28, BUN is 29 creatinine is 1.0. Objective - Vital Signs Vital signs: Vital Signs Temp 97.9 F 12/07/18 04:00 Pulse 67 12/07/18 04:00 Resp 14 12/07/18 04:00 BP 132/48 12/07/18 04:00 Pulse Ox 98 12/07/18 04:00 Intake & Output 12/06/18 12/07/18 12/07/18 18:59 06:59 18:59 Intake Total 740 Output Total 1100 721 Balance -360 -721 Weight 128.6 kg Intake: IV 20 Lactated Ringers 1,000 ml 20 @ 20 mls/hr IV .Q24H GAETANO Rx#:[id number] Oral 720 Output: Urine 1100 600 Stool 1 Emesis 120 Other: Voiding Method Urinal Urinal # Voids 0 ABP, PAP, CO, CI - Last Documented Arterial Blood Pressure 189/45 Pulmonary Artery Pressure 25/17 Cardiac Output 5.9 Cardiac Index 2.4 - Exam GENERAL EXAM: 68-year-old obese white male patient, currently on room air HEAD: Normocephalic/atraumatic. Left forehead small abrasion and contusion EYES: Normal reaction of pupils, equal size. Conjunctiva pink, sclera white. NOSE: Clear with pink turbinates. THROAT: No erythema or exudates. NECK: No masses, no JVD, no thyroid enlargement, no adenopathy. CHEST: No chest wall deformity. Symmetrical expansion. Midsternal incision is clean dry and intact, interval removal of mediastinal and pleural chest tubes LUNGS: Equal air entry with diminished breath sounds at the bases, scattered rhonchi CVS: Regular rate and rhythm, normal S1 and S2, no gallops, no murmurs, no rubs ABDOMEN: Soft, nontender. No hepatosplenomegaly, normal bowel sounds, no guarding or rigidity. EXTREMITIES: No clubbing, no edema, no cyanosis, 2+ pulses and upper and lower extremities. Right lower extremity site is wrapped with Dov wraps, SCDs on bilateral lower extremities MUSCULOSKELETAL: Muscle strength and tone normal. SPINE: No scoliosis or deformity SKIN: No rashes CENTRAL NERVOUS SYSTEM: No focal deficits, tone is normal in all 4 extremities. - Labs CBC & Chem 7: 12/07/18 05:46 12/07/18 05:46 Labs: Abnormal Lab Results - Last 24 Hours (Table) 12/06/18 12/06/18 12/06/18 Range/Units 11:46 12:06 16:57 RBC (4.30-5.90) m/uL Hgb (13.0-17.5) gm/dL Hct (39.0-53.0) % Chloride (98-107) mmol/L BUN (9-20) mg/dL POC Glucose (mg/dL) 135 H 121 H 107 H (75-99) mg/dL Calcium (8.4-10.2) mg/dL Magnesium (1.6-2.3) mg/dL AST (17-59) U/L Total Protein (6.3-8.2) g/dL Albumin (3.5-5.0) g/dL 12/06/18 12/07/18 12/07/18 Range/Units 21:03 02:25 05:46 RBC 2.32 L (4.30-5.90) m/uL Hgb 8.0 L (13.0-17.5) gm/dL Hct 22.8 L (39.0-53.0) % Chloride (98-107) mmol/L BUN (9-20) mg/dL POC Glucose (mg/dL) 155 H 162 H (75-99) mg/dL Calcium (8.4-10.2) mg/dL Magnesium (1.6-2.3) mg/dL AST (17-59) U/L Total Protein (6.3-8.2) g/dL Albumin (3.5-5.0) g/dL 12/07/18 Range/Units 05:46 RBC (4.30-5.90) m/uL Hgb (13.0-17.5) gm/dL Hct (39.0-53.0) % Chloride 110 H (98-107) mmol/L BUN 29 H (9-20) mg/dL POC Glucose (mg/dL) (75-99) mg/dL Calcium 8.2 L (8.4-10.2) mg/dL Magnesium 2.7 H (1.6-2.3) mg/dL AST 83 H (17-59) U/L Total Protein 5.1 L (6.3-8.2) g/dL Albumin 2.8 L (3.5-5.0) g/dL Assessment and Plan Plan: Assessment: #1. Severe symptomatic aortic valve stenosis and coronary artery disease, status post aortic valve replacement and one-vessel bypass, SVG to the RCA,post op day 5 #2. Postoperative ventilator management, he was successfully extubated last night on 12/02/2018 at 2130, tolerated extubation quite well, on 3 L per nasal cannula #3. Postop blood loss anemia, and expected outcome of bypass surgery, and aortic valve replacement surgery #4. Diabetes mellitus with diabetic neuropathy #5. Hypertension, hyperlipidemia #6. Morbid obesity #7. Osteoarthritis #8. Release episodes of pneumonia #9. Postoperative infections owing left total hip arthroplasty, and right total hip arthroplasty,requiring IV antibiotic infusions maintenance dose of oral doxycycline Plan: Today's chest x-ray has been reviewed, shows small bilateral pleural effusions, and left basilar atelectasis. Encourage deep breathing and coughing, incentive spirometry use, patient was given another dose of IV Lasix by CT surgery. In negative fluid balance, no dyspnea, his pain is under good control. Vital signs are stable, anticipate discharge to subacute rehab tomorrow. I performed a history & physical examination of the patient and discussed their management with my nurse practitioner, Niurka Read. I reviewed the nurse practitioner's note and agree with the documented findings and plan of care. Lung sounds are diminished, with a few rhonchi The findings and the impression was discussed with the patient. I attest to the documentation by the nurse practitioner. Time with Patient: Less than 30
[2018-12-07] MEDS: IPRATROPIUM-ALBUTEROL 3 ML NEB INHALATION SCH ×4 (08:23→19:43)
[2018-12-07] MEDS: ATORVASTATIN 40 MG TAB PO SCH (08:37)
[2018-12-07] MEDS: CITALOPRAM HYDROBROMIDE 20 MG TAB PO SCH (08:37)
[2018-12-07] MEDS: METOPROLOL TARTRATE 25 MG TAB PO SCH ×2 (08:38→20:49)
[2018-12-07] MEDS: LISINOPRIL 5 MG TAB PO SCH (08:38)
[2018-12-07] MEDS: CLOPIDOGREL 75 MG TAB PO SCH (08:38)
[2018-12-07] MEDS: ASPIRIN 325 MG TAB PO SCH (08:38)
[2018-12-07] MEDS: valACYclovir 500 MG TAB PO SCH (08:38)
[2018-12-07] MEDS: PREGABALIN 100 MG CAP PO SCH ×2 (08:38→20:49)
[2018-12-07] MEDS: DOXYCYCLINE 100 MG CAP PO SCH ×2 (08:38→20:48)
[2018-12-07] MEDS: PANTOPRAZOLE 40 MG TABLET PO SCH (08:38)
[2018-12-07] MEDS: INSULIN DETEMIR 100 UNIT/ML 10 ML VIAL SQ SCH ×2 (08:39→20:49)
--- NOTE | 2018-12-07 10:02 | PN ---
PROGRESS NOTE HISTORY: Mr. Morales 68-year-old male who underwent aortic valve replacement, coronary bypass grafting. He is doing well this morning. His breathing is better. He has some soreness in the chest. He denies any dizziness or palpitations. He denies any nausea. He continues to be in sinus mechanism on no vasopressors. He continues to be, at this time, on aspirin once a day, Lipitor 4 mg daily, Plavix 75 mg daily, lisinopril 5 mg daily, metoprolol tartrate 25 mg twice a day. PHYSICAL EXAMINATION: Blood pressure running in the 130s with a heart rate in the 60s. Lungs, mild decrease in breath sounds. No wheezes. Hear regular rate and rhythm. S1, S2. No S3. Systolic murmur. No rub. Abdomen is soft, nontender. Extremities no significant edema. LAB DATA: Revealed BUN and creatinine 29 and 1.0, potassium 4.8, hemoglobin of 8. IMPRESSION: 1. Status post coronary artery bypass grafting and aortic valve replacement. 2. Hyperlipidemia. 3. Diabetes. 4. Hypertension. RECOMMENDATIONS: From the cardiac standpoint, continue current therapy. Continue incentive spirometry and physical therapy. I am hopeful that he will be able to be discharged home tomorrow. We will follow his blood pressure and depending on the trend, further recommendations will be made. NARENDRAL / NINFAN: [id number] /
[2018-12-07 11:57] LABS: Glucose,Whole Blood 250 mg/dL (75-99)
[2018-12-07] MEDS: CHOLECALCIFEROL 1,000 UNIT TAB PO SCH (12:15)
--- NOTE | 2018-12-07 12:42 | P.PN ---
Subjective 68-year-old male one of Dr. Graham patient with past medical history of aortic stenosis, hypertension, hyperlipidemia, history of diabetes, severe GERD chronic edema mild depression who has been experiencing exertional dyspnea over the last 6 month without any syncopal episode denies any chest pain. Patient subsequently seen cardiology transesophageal echocardiogram and heart catheter revealed severe calcified aortic valve stenosis with severe restriction also patient had trace mitral regurgitation. 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 Patient was seen pulmonary PFT performed and showed mild obstructive lung disease patient ended up being hospitalized for elective surgery today successfully and ended up having one-vessel coronary artery bypass saphenous to the RCA and aortic valve replacement using bioprosthetic valve. Patient was admitted to the intensive care unit still on mechanical ventilation still on induced coma this point chest tube is in place. 12/03: Patient is extubated sitting in the chair doing well still have soreness and discomfort from the incision site, blood sugar is in the low 100 still on insulin drip close to 4.5 units an hour. Patient respiratory status is much better so far. No arrhythmia or A. fib. 12/04: Patient remains in the intensive care unit. This morning's blood sugars are running high and he will be started on home insulins but at a lower dose. Lantus will be at 40 units at bedtime tonight and insulin drip will be discontinued, NovoLog 12 units scheduled with meals and scale. Patient has been seen by Dr. Ricci with recommendations to continue his normal dose of chronic doxycycline. 12/05: Blood sugars are now running in the 200s up to 284 and Levemir 20 units in the morning added to his scheduled 40 units at bedtime along with NovoLog increased from 12 units with meals to 15 units with meals along with NovoLog scale to be continued. Leonard is out, patient is waiting to void. right sidedChest tube remains in place. Patient denies any chest pain or shortness of breath. telemetry monitor is sinus rhythm running in the 80s. case management and social sciences instructor following for possible inpatient rehab or second choice would be [facility]. 12/06: This is postop day 4 for patient status post aortic valve placement and coronary artery bypass grafting 1. Patient's doing well, noted to be sitting up in bed. Does complain of some chest discomfort related to postsurgical pain. Incentive spirometer at bedside encouraged to use. Blood sugars running 200s to 160s, no adjustments are made on his insulin today. Right chest tube in place, with plans for removal today. 2/3: Patient resting comfortably in bed, he continues to get up in the chair often. He denies any shortness of breath, cough, nausea, chest pain, vomiting. Repeat chest x-ray is stable, shows small left pleural effusion. Hemoglobin 8 , creatinine 1, BUN 29. Vital signs remain stable, blood pressure 132/48, heart rate 67, O2 saturation 98% via 2 L nasal cannula. Encouraged to continue to use incentive spirometer and increase activity as tolerated. Patient remains in the intensive care unit, but is cardiac stepdown overflow. Objective - Vital Signs Vital signs: Vital Signs Temp 97.9 F 12/07/18 04:00 Pulse 67 12/07/18 04:00 Resp 14 12/07/18 04:00 BP 132/48 12/07/18 04:00 Pulse Ox 98 12/07/18 04:00 Intake & Output 12/06/18 12/07/18 12/07/18 18:59 06:59 18:59 Intake Total 740 Output Total 1100 721 Balance -360 -721 Weight 128.6 kg Intake: IV 20 Lactated Ringers 1,000 ml 20 @ 20 mls/hr IV .Q24H GAETANO Rx#:[id number] Oral 720 Output: Urine 1100 600 Stool 1 Emesis 120 Other: Voiding Method Urinal Urinal # Voids 0 ABP, PAP, CO, CI - Last Documented Arterial Blood Pressure 189/45 Pulmonary Artery Pressure 25/17 Cardiac Output 5.9 Cardiac Index 2.4 - Exam - Constitutional General appearance: Present: cooperative, no acute distress, obese - EENT Eyes: Present: EOMI, PERRLA, normal appearance - Neck Neck: Present: normal ROM. Absent: lymphadenopathy, stridor, thyromegaly - Respiratory Respiratory: bilateral: CTA, diminished, negative: rales, rhonchi, wheezing - Cardiovascular Rhythm: regular Heart sounds: normal: S1, S2 - Gastrointestinal General gastrointestinal: Present: normal bowel sounds, soft. Absent: distended , hepatomegaly, organomegaly, splenomegaly, tenderness - Neurologic Neurologic: Present: CNII-XII intact. Absent: focal deficits - Musculoskeletal Musculoskeletal: Present: generalized weakness, strength equal bilaterally. Absent: right sided weakness, left sided weakness - Psychiatric Psychiatric: Present: A&O x's 3, appropriate affect - Labs CBC & Chem 7: 12/07/18 05:46 12/07/18 05:46 Labs: Abnormal Lab Results - Last 24 Hours (Table) 12/06/18 12/06/18 12/06/18 Range/Units 11:46 12:06 16:57 RBC (4.30-5.90) m/uL Hgb (13.0-17.5) gm/dL Hct (39.0-53.0) % Chloride (98-107) mmol/L BUN (9-20) mg/dL POC Glucose (mg/dL) 135 H 121 H 107 H (75-99) mg/dL Calcium (8.4-10.2) mg/dL Magnesium (1.6-2.3) mg/dL AST (17-59) U/L Total Protein (6.3-8.2) g/dL Albumin (3.5-5.0) g/dL 12/06/18 12/07/18 12/07/18 Range/Units 21:03 02:25 05:46 RBC 2.32 L (4.30-5.90) m/uL Hgb 8.0 L (13.0-17.5) gm/dL Hct 22.8 L (39.0-53.0) % Chloride (98-107) mmol/L BUN (9-20) mg/dL POC Glucose (mg/dL) 155 H 162 H (75-99) mg/dL Calcium (8.4-10.2) mg/dL Magnesium (1.6-2.3) mg/dL AST (17-59) U/L Total Protein (6.3-8.2) g/dL Albumin (3.5-5.0) g/dL 12/07/18 Range/Units 05:46 RBC (4.30-5.90) m/uL Hgb (13.0-17.5) gm/dL Hct (39.0-53.0) % Chloride 110 H (98-107) mmol/L BUN 29 H (9-20) mg/dL POC Glucose (mg/dL) (75-99) mg/dL Calcium 8.2 L (8.4-10.2) mg/dL Magnesium 2.7 H (1.6-2.3) mg/dL AST 83 H (17-59) U/L Total Protein 5.1 L (6.3-8.2) g/dL Albumin 2.8 L (3.5-5.0) g/dL Assessment and Plan Plan: 1 post aortic valve placement for severe calcified aortic valve stenosis patient had bioprosthetic valve successful surgery, patient doing well continue with current plan of care. 2 post one-vessel bypass surgery with saphenous to the RCA: Stable and doing well. Patient remains in the ICU but is stepdown overflow 3 diabetes mellitus type II, requiring insulin uncontrolled secondary to hyperglycemia. Levemir 20 units in the morning, 40 units at bedtime along with NovoLog 15 units with meals along with NovoLog scale to be continued medication adjusted yesterday, glucose running 160s to 200s, no adjustments made today. 4 arrhythmia: Patient was on amiodarone drip prophylaxis discontinued. 5 hyperlipidemia: Remain on atorvastatin 40 mg daily. 6 stage II chronic kidney disease: Daily lab and continue hydration. 7 mild abnormal liver function test: Which most likely hypoperfusion post surgery, liver enzymes continue to return to baseline. 8 hypertension: Patient was started on hydralazine was using at home along with metoprolol resume both medication. 9 chronic pain syndrome: Patient will be back on his oral hydrocodone and tramadol. 10 GI prophylaxis: Patient remain on pantoprazole. 11. Acute blood loss anemia, expected with surgery. Discharge plan: inpatient rehab or subacute rehab ([facility]). The above impression and plan of care have been discussed and directed by signing physician. Shante Whitman nurse practitioner acting as scribe for signing physician.
[2018-12-07 17:02] LABS: Glucose,Whole Blood 98 mg/dL (75-99)
[2018-12-07 20:41] LABS: Glucose,Whole Blood 164 mg/dL (75-99)
[2018-12-07] MEDS ORDERED: DEXTROSE 5% IN WATER 100 ML with AMIODARONE 150 MG IV ONE ×3 (20:45→22:07)
[2018-12-07] MEDS: SENNOSIDES-DOCUSATE SODIUM 1 EACH TAB PO SCH (20:49)
[2018-12-07] MEDS: AMIODARONE 450 MG in DEXTROSE 5% IN WATER 250 ML IV SCH ×2 (21:00)
[2018-12-08 02:41] LABS: Glucose,Whole Blood 132 mg/dL (75-99)
[2018-12-08] MEDS: INSULIN ASPART 100 UNIT/ML 1 ML 10 ML VIAL SQ SCH ×8 (02:51→20:56)
[2018-12-08 05:11] LABS: HCT 21.5 % (39.0-53.0); HGB 7.2 gm/dL (13.0-17.5); Hypochromasia Slight; MCH 33.4 pg (25.0-35.0); MCHC 33.6 g/dL (31.0-37.0); MCV 99.5 fL (80.0-100.0); Macrocytosis Slight; Mean Platelet Volume 6.7; Platelet Count 188 k/uL (150-450); Poikilocytosis Moderate; RBC 2.16 m/uL (4.30-5.90); WBC 6.8 k/uL (3.8-10.6)
[2018-12-08 05:42] LABS: Albumin 2.5 g/dL (3.5-5.0); Potassium 3.8 mmol/L (3.5-5.1); Total Protein 4.7 g/dL (6.3-8.2)
[2018-12-08 05:43] LABS: Calcium 7.9 mg/dL (8.4-10.2); Magnesium 2.6 mg/dL (1.6-2.3); Total Bilirubin 0.9 mg/dL (0.2-1.3)
[2018-12-08 06:53] LABS: Glucose,Whole Blood 125 mg/dL (75-99)
[2018-12-08] MEDS: PANTOPRAZOLE 40 MG TABLET PO SCH (07:15)
[2018-12-08] MEDS: AMIODARONE 450 MG in DEXTROSE 5% IN WATER 250 ML IV SCH ×2 (07:17)
--- NOTE | 2018-12-08 07:51 | PN ---
PROGRESS NOTE Mr. Morales is a 68-year-old male status post coronary artery bypass grafting and aortic valve replacement. Last night he went in atrial fibrillation and received IV amiodarone bolus. He is back in sinus mechanism. He continues to be on the IV amiodarone drip. He has some soreness in the chest. Otherwise his breathing is unchanged. He has no dizziness. No palpitation. He was feeling shaky yesterday during the episode. He continued be on IV amiodarone, Lopressor 25 mg twice a day, Lipitor 40 mg daily, Plavix 75 mg daily, lisinopril 5 mg daily. PHYSICAL EXAMINATION: Blood pressure 133/50 with the heart rate in the 60s. LUNGS: Clear with few crackles at the bases. HEART: Regular rate and rhythm. S1, S2. No S3. No rub appreciated. ABDOMEN: Soft, nontender. EXTREMITIES: No significant edema. LAB DATA: Lab data revealed BUN and creatinine 21 and 1.06. Potassium 3.8. Hemoglobin of 7.2. IMPRESSION: 1. Status post aortic valve replacement and coronary artery bypass grafting. 2. Paroxysmal fibrillation. 3. Hypertension. 4. Hyperlipidemia. 5. History of diabetes. RECOMMENDATION: I will switch him to oral amiodarone and increase the dose of his beta paul. Increase his level activity. Depending on his progress, I am hopeful that we should be able to transfer him to rehab unit soon. MADISON / EZEKIEL: [id number] /
--- NOTE | 2018-12-08 07:56 | P.PN ---
Subjective Progress Note Date: 12/08/18 Principal diagnosis: Severe aortic valve stenosis, coronary artery disease. Previous medical history of hypertension, hyperlipidemia, family history of coronary artery disease, diabetes mellitus with neuropathy with preoperative hemoglobin A1c 6.3% , previous tobacco dependence, moderate COPD with preoperative FEV1 56% of predicted, morbid obesity, rare EtOH use, depression, shingles, basal cell skin carcinoma diagnosed in 2016 and 2017, osteoarthritis, both right and left hip replacements with postoperative infections and subsequent IV antibiotics per Dr. Ricci. POD #6 aortic valve replacement using 23 mm Pelaez magna ease bioprosthetic valve. Coronary artery bypass grafting 1 vessel, as reverse saphenous vein graft to the right coronary artery. Endoscopic vein harvest, right greater saphenous vein. Epi-aortic ultrasound. Intraoperative transesophageal echocardiogram. Closure of the sternum using Coden cable system. Postoperative acute blood loss anemia, an expected outcome of surgery secondary to cardiopulmonary bypass pump and hemodilution. Postoperative fall from standing without loss of consciousness and without injury, an expected outcome. Postoperative atrial fibrillation, an unexpected but potential outcome of surgery, currently back in normal sinus rhythm. The patient's currently sitting up in a recliner in no acute distress. States pain is well-controlled on current pain medication regimen, does complain of some increased shortness of breath. Has been weaned off oxygen to room air. Hemodynamically stable on no inotropes or pressors. He went into A. fib with RVR last night, IV amiodarone initiated with conversion back to normal sinus rhythm. Requiring less assist with ambulation but still not ambulating in the hallway. Transfer orders have been placed for 3 S. cardiac stepdown unit, no bed available. Objective - Vital Signs Vital signs: Vital Signs Temp 98.2 F 12/08/18 00:00 Pulse 69 12/08/18 07:30 Resp 17 12/08/18 07:30 BP 143/55 12/08/18 07:30 Pulse Ox 94 L 12/08/18 07:30 Intake & Output 12/07/18 12/08/18 12/08/18 18:59 06:59 18:59 Intake Total 720 259.00 Output Total 1101 350 0 Balance -381 -91.00 0 Weight 125.2 kg Intake: Intake, IV Titration 259.00 Amount Amiodarone 450 mg In 259.00 Dextrose 5% in Water 250 ml @ 1 MG/MIN 34.53 mls/ hr IV .Q7H31M [facility] Rx#: [id number] Oral 720 Output: Urine 1100 350 0 Stool 1 Other: Voiding Method Urinal Urinal # Voids 1 # Bowel Movements 1 ABP, PAP, CO, CI - Last Documented Arterial Blood Pressure 189/45 Pulmonary Artery Pressure 25/17 Cardiac Output 5.9 Cardiac Index 2.4 - Constitutional General appearance: Present: cooperative, no acute distress, obese - Respiratory Details: Lungs sounds diminished bilaterally, left greater than right. Respirations even , nonlabored. Currently on room air with oxygen saturation 97%. Able to achieve 1250 mL on his incentive spirometry. Strong productive cough. - Cardiovascular Details: S1, S2 present. Regular rate and rhythm, sinus rhythm on telemetry. A/V epicardial pacemaker wires present, grounded. Sternum stable. Palpable peripheral pulses bilaterally. No edema present. No calf pain or tenderness noted. Heart hugger in place with patient demonstrating appropriate use with encouragement. Antiembolism stockings, SCDs present. - Gastrointestinal Gastrointestinal Comment(s): Abdomen soft, nontender, nondistended, obese. Active bowel sounds present 4 quadrants. Tolerating diet. Positive bowel movement 2/3. - Genitourinary Genitourinary Comment(s): Patient continues to void clear, yellow urine, output 350 mL in the last 8 hours. - Integumentary Integumentary Comment(s): Skin is warm and dry with evidence of good perfusion. Anterior chest incision well approximated and covered with dry intact dressing. Right lower extremity EVH site well approximated with Dermabond. - Neurologic Neurologic: Present: CNII-XII intact - Musculoskeletal Musculoskeletal: Present: gait normal, generalized weakness, strength equal bilaterally - Psychiatric Psychiatric: Present: A&O x's 3, appropriate affect, intact judgment & insight - Allied health notes Allied health notes reviewed: nursing - Labs CBC & Chem 7: 12/08/18 04:51 12/08/18 04:51 Labs: Abnormal Lab Results - Last 24 Hours (Table) 12/07/18 12/07/18 12/08/18 Range/Units 11:56 20:38 02:39 RBC (4.30-5.90) m/uL Hgb (13.0-17.5) gm/dL Hct (39.0-53.0) % Carbon Dioxide (22-30) mmol/L BUN (9-20) mg/dL Glucose (74-99) mg/dL POC Glucose (mg/dL) 250 H 164 H 132 H (75-99) mg/dL Calcium (8.4-10.2) mg/dL Magnesium (1.6-2.3) mg/dL Total Protein (6.3-8.2) g/dL Albumin (3.5-5.0) g/dL 12/08/18 12/08/18 12/08/18 Range/Units 04:51 04:51 06:51 RBC 2.16 L (4.30-5.90) m/uL Hgb 7.2 L (13.0-17.5) gm/dL Hct 21.5 L (39.0-53.0) % Carbon Dioxide 32 H (22-30) mmol/L BUN 21 H (9-20) mg/dL Glucose 118 H (74-99) mg/dL POC Glucose (mg/dL) 125 H (75-99) mg/dL Calcium 7.9 L (8.4-10.2) mg/dL Magnesium 2.6 H (1.6-2.3) mg/dL Total Protein 4.7 L (6.3-8.2) g/dL Albumin 2.5 L (3.5-5.0) g/dL - Imaging and Cardiology Chest x-ray: image reviewed Assessment and Plan (1) Morbid obesity Current Visit: Yes Status: Chronic Code(s): E66.01 - MORBID (SEVERE) OBESITY DUE TO EXCESS CALORIES SNOMED Code(s): 225983285 (2) COPD (chronic obstructive pulmonary disease) Current Visit: Yes Status: Chronic Code(s): J44.9 - CHRONIC OBSTRUCTIVE PULMONARY DISEASE, UNSPECIFIED SNOMED Code(s): 54937582 (3) Family history of coronary artery disease Current Visit: Yes Status: Chronic Code(s): Z82.49 - FAMILY HX OF ISCHEM HEART DIS AND OTH DIS OF THE CIRC SYS SNOMED Code(s): 523049764 (4) Coronary artery disease Current Visit: Yes Status: Chronic Code(s): I25.10 - ATHSCL HEART DISEASE OF [place] CORONARY ARTERY W/O ANG PCTRS SNOMED Code(s): 39172456 (5) Aortic stenosis Current Visit: Yes Status: Chronic Code(s): I35.0 - NONRHEUMATIC AORTIC ( VALVE) STENOSIS SNOMED Code(s): 72288728 (6) Diabetes mellitus Current Visit: Yes Status: Chronic Code(s): E11.9 - TYPE 2 DIABETES MELLITUS WITHOUT COMPLICATIONS SNOMED Code(s): 21570489 (7) Hyperlipidemia Current Visit: Yes Status: Chronic Code(s): E78.5 - HYPERLIPIDEMIA, UNSPECIFIED SNOMED Code(s): 51996697 (8) Hypertension Current Visit: Yes Status: Chronic Code(s): I10 - ESSENTIAL (PRIMARY) HYPERTENSION SNOMED Code(s): 60673006 (9) Osteoarthritis Current Visit: Yes Status: Chronic Code(s): M19.90 - UNSPECIFIED OSTEOARTHRITIS, UNSPECIFIED SITE SNOMED Code(s): 066068626 (10) Tobacco dependence in remission Current Visit: No Status: Resolved Code(s): F17.201 - NICOTINE DEPENDENCE, UNSPECIFIED, IN REMISSION SNOMED Code(s): 489443326 Plan: 1. Continue aspirin, statin, Plavix, DARWIN inhibitor, beta paul therapy. Will increase beta paul therapy as tolerated. 2. Continue amiodarone for A. fib prophylaxis. Will transition to oral amiodarone. No need for anticoagulation unless patient is in atrial fibrillation for greater than 24 hours. 3. Encourage incentive spirometry is 10 times every hour while awake. Encourage continued smoking cessation. 4. Will give lasix 40 mg IV again today. 5. Increase activity. Encourage ambulation. PT/OT/cardiac rehab following. 6. Monitor daily labs and x-rays. Electrolyte replacement per protocol. No transfusion at this time. 7. Pain control with current medication regimen. No narcotics. 8. Bronchodilators per pulmonology. Ultrasound of left chest completed, small left pleural effusion with 3.5 cm pocket not marked for thoracentesis as lung noted within the fluid pocket. 9. GI prophylaxis with Protonix, DVT prophylaxis with subcu heparin, SCDs. 10. Continue daily doxycycline, patient is on lifetime antibiotics per Dr. Ricci for postoperative infections after hip surgeries. Will consult Dr. Ricci for any further recommendations. 11. Insulin management per primary care service. 12. Transfer orders have been placed for 3 S. cardiac stepdown unit. May transfer when bed available. 13. Anticipate discharge in the next 24 hours to [facility]. 14. More recommendations to follow. Time with Patient: Greater than 30
[2018-12-08] MEDS ORDERED: POTASSIUM CHLORIDE ER 20 MEQ TAB.ER PO SCH (08:00)
[2018-12-08] MEDS: IPRATROPIUM-ALBUTEROL 3 ML NEB INHALATION SCH ×4 (08:04→19:12)
[2018-12-08] MEDS: INSULIN DETEMIR 100 UNIT/ML 10 ML VIAL SQ SCH ×2 (08:24→20:57)
[2018-12-08] MEDS: CLOPIDOGREL 75 MG TAB PO SCH (08:25)
[2018-12-08] MEDS: valACYclovir 500 MG TAB PO SCH (08:25)
[2018-12-08] MEDS: ASPIRIN 325 MG TAB PO SCH (08:25)
[2018-12-08] MEDS: CITALOPRAM HYDROBROMIDE 20 MG TAB PO SCH (08:25)
[2018-12-08] MEDS: HEPARIN SODIUM,PORCINE 5,000 UNIT/ML 1 ML VIAL SQ SCH ×3 (08:25→23:50)
[2018-12-08] MEDS: ATORVASTATIN 40 MG TAB PO SCH (08:25)
[2018-12-08] MEDS: AMIODARONE 200 MG TAB PO SCH ×2 (08:25→20:57)
[2018-12-08] MEDS: DOXYCYCLINE 100 MG CAP PO SCH ×2 (08:25→20:59)
[2018-12-08] MEDS: PREGABALIN 100 MG CAP PO SCH ×2 (08:25→20:58)
[2018-12-08] MEDS: LISINOPRIL 5 MG TAB PO SCH (08:26)
[2018-12-08] MEDS: METOPROLOL TARTRATE 50 MG TAB PO SCH ×2 (08:26→20:58)
[2018-12-08] MEDS ORDERED: FUROSEMIDE 10 MG/ML 4 ML VIAL IV ONE (08:56)
[2018-12-08] MEDS ORDERED: AMIODARONE 200 MG TAB PO SCH (09:00)
--- NOTE | 2018-12-08 09:20 | XR ---
EXAMINATION TYPE: XR chest 2V DATE OF EXAM: 12/08/2018 COMPARISON: 12/07/2018 TECHNIQUE: PA and lateral views submitted. HISTORY: Post cardiac surgery FINDINGS: Cardiomegaly with postoperative changes. No pneumothorax. Arthropathy of the shoulders. Bilateral con solidation and small effusion. Interstitium mildly prominent. Prosthetic heart valve noted. IMPRESSION: 1. Bilateral consolidation and pleural effusion. Correlate for mild venous congestion.
[2018-12-08 11:47] LABS: Glucose,Whole Blood 89 mg/dL (75-99)
[2018-12-08] MEDS: CHOLECALCIFEROL 1,000 UNIT TAB PO SCH (12:48)
--- NOTE | 2018-12-08 12:57 | P.PN ---
Subjective Progress Note Date: 12/08/18 68-year-old male one of Dr. Graham patient with past medical history of aortic stenosis, hypertension, hyperlipidemia, history of diabetes, severe GERD chronic edema mild depression who has been experiencing exertional dyspnea over the last 6 month without any syncopal episode denies any chest pain. Patient subsequently seen cardiology transesophageal echocardiogram and heart catheter revealed severe calcified aortic valve stenosis with severe restriction also patient had trace mitral regurgitation. 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 Patient was seen pulmonary PFT performed and showed mild obstructive lung disease patient ended up being hospitalized for elective surgery today successfully and ended up having one-vessel coronary artery bypass saphenous to the RCA and aortic valve replacement using bioprosthetic valve. Patient was admitted to the intensive care unit still on mechanical ventilation still on induced coma this point chest tube is in place. 12/03: Patient is extubated sitting in the chair doing well still have soreness and discomfort from the incision site, blood sugar is in the low 100 still on insulin drip close to 4.5 units an hour. Patient respiratory status is much better so far. No arrhythmia or A. fib. 12/04: Patient remains in the intensive care unit. This morning's blood sugars are running high and he will be started on home insulins but at a lower dose. Lantus will be at 40 units at bedtime tonight and insulin drip will be discontinued, NovoLog 12 units scheduled with meals and scale. Patient has been seen by Dr. Ricci with recommendations to continue his normal dose of chronic doxycycline. 12/05: Blood sugars are now running in the 200s up to 284 and Levemir 20 units in the morning added to his scheduled 40 units at bedtime along with NovoLog increased from 12 units with meals to 15 units with meals along with NovoLog scale to be continued. Leonard is out, patient is waiting to void. right sidedChest tube remains in place. Patient denies any chest pain or shortness of breath. campus monitor is sinus rhythm running in the 80s. case management and social human services assistants following for possible inpatient rehab or second choice would be [facility]. 12/06: This is postop day 4 for patient status post aortic valve placement and coronary artery bypass grafting 1. Patient's doing well, noted to be sitting up in bed. Does complain of some chest discomfort related to postsurgical pain. Incentive spirometer at bedside encouraged to use. Blood sugars running 200s to 160s, no adjustments are made on his insulin today. Right chest tube in place, with plans for removal today. 2/: Patient resting comfortably in bed, he continues to get up in the chair often. He denies any shortness of breath, cough, nausea, chest pain, vomiting. Repeat chest x-ray is stable, shows small left pleural effusion. Hemoglobin 8 , creatinine 1, BUN 29. Vital signs remain stable, blood pressure 132/48, heart rate 67, O2 saturation 98% via 2 L nasal cannula. Encouraged to continue to use incentive spirometer and increase activity as tolerated. Patient remains in the intensive care unit, but is cardiac stepdown overflow. 12/08: Patient remains in the intensive care unit waiting for cardiac stepdown unit bed. Patient went into A. fib with controlled rate last evening and started on amiodarone drip. He is currently in a sinus rhythm. He did ambulate with physical therapy today and feels quite tired afterwards. Yesterday he had several bowel movements but none today. He states he is not eating very much as he is not very hungry. He denies any difficulty swallowing. No thrush noted. He does have occasional cough. Plan is for discharge to [facility] tomorrow and insurance authorization will need to be obtained with [facility]. Review of system: CONSTITUTIONAL: Obese no acute respiratory distress. Reports fatigue. EYES: No icterus sclerae, no conjunctivitis. EARS, NOSE, MOUTH, THROAT, and FACE: No sore throat, lymphadenopathy, carotid bruits or deformity. RESPIRATORY: No SOB cough or wheezes. Still have chest wall pain from the surgical incision CARDIOVASCULAR: Positive CP, no Palpitation, denies PND, Orthopnea, or angina. GASTROINTESTINAL: No Abd pain, Nausea or vomiting, no Diarrhea or constipation, No GI Bleed, no distention or masses. GENITOURINARY: Negative for Hematuria or UTI, no kidney stones. INTEGUMENT/BREAST: Negative for any muscular injury with mild osteoarthritis.. HEMATOLOGIC/LYMPHATIC: Negative for bleed or purpura. MUSCULOSKELTAL: Negative for Myalgia or arthralgia. NEURLOGICAL: No LOC, Sz or syncope, blurred vision dizziness or abnormality.. BEHAVIORAL/PSYCH: Negative. ENDOCRINE: Negative. Objective - Vital Signs Vital signs: Vital Signs Temp 97.7 F 12/08/18 08:00 Pulse 70 12/08/18 08:15 Resp 18 12/08/18 08:00 BP 136/51 12/08/18 08:00 Pulse Ox 96 12/08/18 08:06 Intake & Output 12/07/18 12/08/18 12/08/18 18:59 06:59 18:59 Intake Total 720 259.00 Output Total 1101 350 0 Balance -381 -91.00 0 Weight 125.2 kg Intake: Intake, IV Titration 259.00 Amount Amiodarone 450 mg In 259.00 Dextrose 5% in Water 250 ml @ 1 MG/MIN 34.53 mls/ hr IV .Q7H31M [facility] Rx#: [id number] Oral 720 Output: Urine 1100 350 0 Stool 1 Other: Voiding Method Urinal Urinal # Voids 1 # Bowel Movements 1 ABP, PAP, CO, CI - Last Documented Arterial Blood Pressure 189/45 Pulmonary Artery Pressure 25/17 Cardiac Output 5.9 Cardiac Index 2.4 - Exam General appearance: Present: cooperative, no acute distress, obese, patient in ICU bed - EENT Eyes: Present: EOMI, PERRLA, normal appearance - Neck Neck: Present: normal ROM. Absent: lymphadenopathy, stridor, thyromegaly - Respiratory Respiratory: bilateral: CTA, diminished, negative: rales, rhonchi, wheezing - Cardiovascular Rhythm: regular Heart sounds: normal: S1, S2 - Gastrointestinal General gastrointestinal: Present: normal bowel sounds, soft. Absent: distended , hepatomegaly, organomegaly, splenomegaly, tenderness - Neurologic Neurologic: Present: CNII-XII intact. Absent: focal deficits - Musculoskeletal Musculoskeletal: Present: generalized weakness, strength equal bilaterally. Absent: right sided weakness, left sided weakness - Psychiatric Psychiatric: Present: A&O x's 3, appropriate affect - Labs CBC & Chem 7: 12/08/18 04:51 12/08/18 04:51 Labs: Abnormal Lab Results - Last 24 Hours (Table) 12/07/18 12/07/18 12/08/18 Range/Units 11:56 20:38 02:39 RBC (4.30-5.90) m/uL Hgb (13.0-17.5) gm/dL Hct (39.0-53.0) % Carbon Dioxide (22-30) mmol/L BUN (9-20) mg/dL Glucose (74-99) mg/dL POC Glucose (mg/dL) 250 H 164 H 132 H (75-99) mg/dL Calcium (8.4-10.2) mg/dL Magnesium (1.6-2.3) mg/dL Total Protein (6.3-8.2) g/dL Albumin (3.5-5.0) g/dL 12/08/18 12/08/18 12/08/18 Range/Units 04:51 04:51 06:51 RBC 2.16 L (4.30-5.90) m/uL Hgb 7.2 L (13.0-17.5) gm/dL Hct 21.5 L (39.0-53.0) % Carbon Dioxide 32 H (22-30) mmol/L BUN 21 H (9-20) mg/dL Glucose 118 H (74-99) mg/dL POC Glucose (mg/dL) 125 H (75-99) mg/dL Calcium 7.9 L (8.4-10.2) mg/dL Magnesium 2.6 H (1.6-2.3) mg/dL Total Protein 4.7 L (6.3-8.2) g/dL Albumin 2.5 L (3.5-5.0) g/dL Assessment and Plan Plan: 1 post aortic valve placement for severe calcified aortic valve stenosis patient had bioprosthetic valve successful surgery, continue current plan of care. Patient is now cardiac stepdown overflow. 2 post one-vessel bypass surgery with saphenous to the RCA: Stable and doing well. Intensive care management per Dr. Granda. 3 diabetes mellitus type II, insulin requiringuncontrolled secondary to hyperglycemia. Levemir 20 units in the morning added to his scheduled 40 units at bedtime along with NovoLog increased from 12 units with meals to 15 units with meals along with NovoLog scale to be continued. 4 post op atrial fibrillation, expected with surgery. Patient is on amiodarone drip. He is currently in a sinus rhythm. 5 hyperlipidemia: Remain on atorvastatin 40 mg daily. 6 stage II chronic kidney disease: Daily lab and continue hydration. 7 mild abnormal liver function test: Which most likely hypoperfusion post surgery. 8 hypertension: Patient was started on hydralazine was using at home along with metoprolol resume both medication. 9 chronic pain syndrome: Patient will be back on his oral hydrocodone and tramadol. 10 GI prophylaxis: Patient remain on pantoprazole. 11. Acute blood loss anemia, expected with surgery. Discharge plan: [facility] on Saturday under the care of Dr. Washington. Impression and plan of care have been directed as dictated by the signing physician. Bryanna Coker nurse practitioner acting as scribe for signing physician.
--- NOTE | 2018-12-08 15:25 | P.PN ---
Subjective Progress Note Date: 12/08/18 On 12/08/2018 I'm seeing this patient for a follow-up. The patient has undergone a aortic valve replacement with a 23 Edward magna bioprosthetic valve and the patient is postop day #7. The patient also underwent a single-vessel bypass surgery with saphenous vein graft to RCA. The patient is doing well. He has no specific complaints. He has developed an acute anemia which is an expected outcome of surgery. He is using incentive spirometer. Yesterday, briefly for one hour the patient went into atrial fibrillation and after being given amiodarone the patient converted into normal sinus rhythm with an hour. The patient was started on IV amiodarone. No chest pain. No cough or sputum production. Sternum stable clean and intact and is using incentive spirometer. No dizziness. No syncope. The plan is to transfer the patient to a telemetry unit today. No anticoagulation will be offered. Objective - Vital Signs Vital signs: Vital Signs Temp 98.1 F 12/08/18 12:00 Pulse 69 12/08/18 15:00 Resp 18 12/08/18 15:00 BP 133/44 12/08/18 15:00 Pulse Ox 96 12/08/18 15:00 Intake & Output 12/07/18 12/08/18 12/08/18 18:59 06:59 18:59 Intake Total 720 259.00 Output Total 1101 350 730 Balance -381 -91.00 -730 Weight 125.2 kg Intake: Intake, IV Titration 259.00 Amount Amiodarone 450 mg In 259.00 Dextrose 5% in Water 250 ml @ 1 MG/MIN 34.53 mls/ hr IV .Q7H31M [facility] Rx#: [id number] Oral 720 Output: Urine 1100 350 730 Stool 1 Other: Voiding Method Urinal Urinal Urinal # Voids 1 # Bowel Movements 1 ABP, PAP, CO, CI - Last Documented Arterial Blood Pressure 189/45 Pulmonary Artery Pressure 25/17 Cardiac Output 5.9 Cardiac Index 2.4 - Exam - Constitutional General appearance: Present: cooperative, no acute distress, obese - Respiratory Details: Lungs sounds diminished bilaterally, left greater than right. Respirations even , nonlabored. Currently on room air with oxygen saturation 97%. Able to achieve 1250 mL on his incentive spirometry. Strong productive cough. - Cardiovascular Details: S1, S2 present. Regular rate and rhythm, sinus rhythm on telemetry. A/V epicardial pacemaker wires present, grounded. Sternum stable. Palpable peripheral pulses bilaterally. No edema present. No calf pain or tenderness noted. Heart hugger in place with patient demonstrating appropriate use with encouragement. Antiembolism stockings, SCDs present. - Gastrointestinal Gastrointestinal Comment(s): Abdomen soft, nontender, nondistended, obese. Active bowel sounds present 4 quadrants. Tolerating diet. Positive bowel movement 2/3. - Genitourinary Genitourinary Comment(s): Patient continues to void clear, yellow urine, output 350 mL in the last 8 hours. - Integumentary Integumentary Comment(s): Skin is warm and dry with evidence of good perfusion. Anterior chest incision well approximated and covered with dry intact dressing. Right lower extremity EVH site well approximated with Dermabond. - Neurologic Neurologic: Present: CNII-XII intact - Musculoskeletal Musculoskeletal: Present: gait normal, generalized weakness, strength equal bilaterally - Psychiatric Psychiatric: Present: A&O x's 3, appropriate affect, intact judgment & insight - Labs CBC & Chem 7: 12/08/18 04:51 12/08/18 04:51 Labs: Abnormal Lab Results - Last 24 Hours (Table) 12/07/18 12/08/18 12/08/18 Range/Units 20:38 02:39 04:51 RBC 2.16 L (4.30-5.90) m/uL Hgb 7.2 L (13.0-17.5) gm/dL Hct 21.5 L (39.0-53.0) % Carbon Dioxide (22-30) mmol/L BUN (9-20) mg/dL Glucose (74-99) mg/dL POC Glucose (mg/dL) 164 H 132 H (75-99) mg/dL Calcium (8.4-10.2) mg/dL Magnesium (1.6-2.3) mg/dL Total Protein (6.3-8.2) g/dL Albumin (3.5-5.0) g/dL 12/08/18 12/08/18 Range/Units 04:51 06:51 RBC (4.30-5.90) m/uL Hgb (13.0-17.5) gm/dL Hct (39.0-53.0) % Carbon Dioxide 32 H (22-30) mmol/L BUN 21 H (9-20) mg/dL Glucose 118 H (74-99) mg/dL POC Glucose (mg/dL) 125 H (75-99) mg/dL Calcium 7.9 L (8.4-10.2) mg/dL Magnesium 2.6 H (1.6-2.3) mg/dL Total Protein 4.7 L (6.3-8.2) g/dL Albumin 2.5 L (3.5-5.0) g/dL Assessment and Plan Plan: #1. Severe symptomatic aortic valve stenosis and coronary artery disease, status post aortic valve replacement and one-vessel bypass, SVG to the RCA,post op day 7 #2. Postoperative ventilator management, he was successfully extubated and currently the patient is on room air oxygen #3. Postop blood loss anemia, and expected outcome of bypass surgery, and aortic valve replacement surgery, current hemoglobin is at 7.2 #4. Diabetes mellitus with diabetic neuropathy #5. Hypertension, hyperlipidemia #6. Morbid obesity #7. Osteoarthritis #8. Release episodes of pneumonia #9. Postoperative infections owing left total hip arthroplasty, and right total hip arthroplasty,requiring IV antibiotic infusions maintenance dose of oral doxycycline Plan Continue the supportive care. Monitor the cardiac rhythm. The patient is currently in sinus. Monitor hemoglobin. Use incentive spirometer. Oxygen is been discontinued. The patient is doing well. Transfer to telemetry unit today.
[2018-12-08 17:00] LABS: Glucose,Whole Blood 171 mg/dL (75-99)
[2018-12-08] MEDS: ACETAMINOPHEN TAB 325 MG TAB PO PRN (17:08)
[2018-12-08 17:32] LABS: Glucose,Whole Blood 151 mg/dL (75-99)
[2018-12-08 20:53] LABS: Glucose,Whole Blood 131 mg/dL (75-99)
[2018-12-08] MEDS: SENNOSIDES-DOCUSATE SODIUM 1 EACH TAB PO SCH (20:56)
[2018-12-09 01:39] LABS: Glucose,Whole Blood 95 mg/dL (75-99)
[2018-12-09] MEDS: INSULIN ASPART 100 UNIT/ML 1 ML 10 ML VIAL SQ SCH ×5 (02:14→12:12)
[2018-12-09 05:38] LABS: HCT 24.2 % (39.0-53.0); HGB 7.9 gm/dL (13.0-17.5); Hypochromasia Slight; MCH 33.3 pg (25.0-35.0); MCHC 32.8 g/dL (31.0-37.0); MCV 101.5 fL (80.0-100.0); Macrocytosis Slight; Mean Platelet Volume 6.8; Platelet Count 222 k/uL (150-450); Poikilocytosis Moderate; RBC 2.38 m/uL (4.30-5.90); RDW 15.2 % (11.5-15.5); WBC 9.2 k/uL (3.8-10.6)
[2018-12-09 05:44] LABS: Potassium 4.1 mmol/L (3.5-5.1)
[2018-12-09 05:45] LABS: Albumin 2.9 g/dL (3.5-5.0); Calcium 8.3 mg/dL (8.4-10.2); Magnesium 2.5 mg/dL (1.6-2.3); Total Bilirubin 1.1 mg/dL (0.2-1.3); Total Protein 5.3 g/dL (6.3-8.2)
[2018-12-09 07:16] LABS: Glucose,Whole Blood 101 mg/dL (75-99)
[2018-12-09] MEDS: INSULIN DETEMIR 100 UNIT/ML 10 ML VIAL SQ SCH (07:58)
[2018-12-09] MEDS: HEPARIN SODIUM,PORCINE 5,000 UNIT/ML 1 ML VIAL SQ SCH (07:58)
[2018-12-09] MEDS: valACYclovir 500 MG TAB PO SCH (07:58)
[2018-12-09] MEDS: ASPIRIN 325 MG TAB PO SCH (07:59)
[2018-12-09] MEDS: METOPROLOL TARTRATE 50 MG TAB PO SCH (07:59)
[2018-12-09] MEDS: LISINOPRIL 5 MG TAB PO SCH (07:59)
[2018-12-09] MEDS: PREGABALIN 100 MG CAP PO SCH (07:59)
[2018-12-09] MEDS: AMIODARONE 200 MG TAB PO SCH (07:59)
[2018-12-09] MEDS: CITALOPRAM HYDROBROMIDE 20 MG TAB PO SCH (07:59)
[2018-12-09] MEDS: PANTOPRAZOLE 40 MG TABLET PO SCH (07:59)
[2018-12-09] MEDS: ATORVASTATIN 40 MG TAB PO SCH (07:59)
[2018-12-09] MEDS: CLOPIDOGREL 75 MG TAB PO SCH (07:59)
[2018-12-09] MEDS: DOXYCYCLINE 100 MG CAP PO SCH (07:59)
[2018-12-09] MEDS ORDERED: LISINOPRIL 5 MG TAB PO ONE (08:30)
[2018-12-09] MEDS ORDERED: FUROSEMIDE 10 MG/ML 4 ML VIAL IV ONE (08:30)
--- NOTE | 2018-12-09 08:43 | PN ---
PROGRESS NOTE Mr. Morales is a 68-year-old male status post coronary artery bypass grafting and aortic valve replacement. He has continued to be in sinus mechanism at this time. His breathing is stable. He is denying any chest pain. He denies any dizziness or palpitation. He denies any nausea. The plan is transfer him to rehab unit today. He continues to be on amiodarone 400 mg twice a day, aspirin once a day, Plavix 75 mg daily, lisinopril 5 mg daily, metoprolol tartrate 50 mg twice a day. PHYSICAL EXAMINATION: Blood pressure 127/50 with the heart rate in the 60s. LUNGS: Clear. HEART: Regular rate and rhythm. S1, S2. No S3 with systolic murmur, no diastolic murmur. ABDOMEN: Soft nontender. EXTREMITIES: No significant edema. LAB DATA: Lab data revealed BUN and creatinine 20 and 1.09, potassium of 4.1. Hemoglobin of 7.9. IMPRESSION: 1. Status post coronary artery bypass grafting and aortic valve replacement, stable. 2. Paroxysmal atrial fibrillation, remains in normal sinus rhythm. 3. History of diabetes. 4. History of osteoarthritis, prior hip surgery. RECOMMENDATION: From the cardiac standpoint, I would expect he should be able to be transferred to the rehab unit today. The dose of the amiodarone can be decreased to 200 mg twice a day in 3 days and subsequently to 200 mg daily and if he remains in sinus mechanism to stop it. MMODL / IJN: [id number] /
[2018-12-09] MEDS ORDERED: LISINOPRIL 10 MG TAB PO SCH (09:00)
--- NOTE | 2018-12-09 09:22 | P.PN ---
Subjective Progress Note Date: 12/09/18 Principal diagnosis: Severe aortic valve stenosis, coronary artery disease. Previous medical history of hypertension, hyperlipidemia, family history of coronary artery disease, diabetes mellitus with neuropathy with preoperative hemoglobin A1c 6.3% , previous tobacco dependence, moderate COPD with preoperative FEV1 56% of predicted, morbid obesity, rare EtOH use, depression, shingles, basal cell skin carcinoma diagnosed in 2016 and 2017, osteoarthritis, both right and left hip replacements with postoperative infections and subsequent IV antibiotics per Dr. Ricci. POD #7 aortic valve replacement using 23 mm Pelaez magna ease bioprosthetic valve. Coronary artery bypass grafting 1 vessel, as reverse saphenous vein graft to the right coronary artery. Endoscopic vein harvest, right greater saphenous vein. Epi-aortic ultrasound. Intraoperative transesophageal echocardiogram. Closure of the sternum using [place] cable system. Postoperative acute blood loss anemia, an expected outcome of surgery secondary to cardiopulmonary bypass pump and hemodilution. Postoperative fall from standing without loss of consciousness and without injury, an expected outcome. Postoperative atrial fibrillation, an unexpected but potential outcome of surgery, currently back in normal sinus rhythm. The patient's currently sitting up in bed in no acute distress. States pain is well-controlled on current pain medication regimen, denies shortness of breath. Remains in normal sinus rhythm. Requiring less assist with ambulation but still not ambulating in the hallway. Transfer orders have been placed for 3 S. cardiac stepdown unit, no bed available. Objective - Vital Signs Vital signs: Vital Signs Temp 98.3 F 12/09/18 08:00 Pulse 65 12/09/18 08:00 Resp 30 H 12/09/18 08:00 BP 142/52 12/09/18 08:00 Pulse Ox 100 12/09/18 08:00 Intake & Output 12/08/18 12/09/18 12/09/18 18:59 06:59 18:59 Intake Total 600 Output Total 730 750 Balance -730 -150 Weight 127.2 kg Intake: Oral 600 Output: Urine 730 750 Other: Voiding Method Urinal Urinal # Voids 0 ABP, PAP, CO, CI - Last Documented Arterial Blood Pressure 189/45 Pulmonary Artery Pressure 25/17 Cardiac Output 5.9 Cardiac Index 2.4 - Constitutional General appearance: Present: cooperative, no acute distress, obese - Respiratory Details: Lungs sounds diminished bilaterally, left greater than right. Respirations even , nonlabored. Currently on room air with oxygen saturation 95%. Able to achieve 1000 mL on his incentive spirometry. Strong productive cough. - Cardiovascular Details: S1, S2 present. Regular rate and rhythm, sinus rhythm on telemetry. A/V epicardial pacemaker wires were present, removed this morning. Sternum stable. Palpable peripheral pulses bilaterally. No edema present. No calf pain or tenderness noted. Heart hugger in place with patient demonstrating appropriate use with encouragement. Antiembolism stockings, SCDs present. - Gastrointestinal Gastrointestinal Comment(s): Abdomen soft, nontender, nondistended, obese. Active bowel sounds present 4 quadrants. Tolerating diet. Positive bowel movement 2/3. - Genitourinary Genitourinary Comment(s): Patient continues to void clear, yellow urine, output 400 mL in the last 8 hours. - Integumentary Integumentary Comment(s): Skin is warm and dry with evidence of good perfusion. Anterior chest incision well approximated and covered with dry intact dressing. Right lower extremity EVH site well approximated with Dermabond. - Neurologic Neurologic: Present: CNII-XII intact - Musculoskeletal Musculoskeletal: Present: gait normal, generalized weakness, strength equal bilaterally - Psychiatric Psychiatric: Present: A&O x's 3, appropriate affect, intact judgment & insight - Allied health notes Allied health notes reviewed: nursing - Labs CBC & Chem 7: 12/09/18 05:09 12/09/18 05:09 Labs: Abnormal Lab Results - Last 24 Hours (Table) 12/08/18 12/08/18 12/08/18 Range/Units 16:59 17:30 20:51 RBC (4.30-5.90) m/uL Hgb (13.0-17.5) gm/dL Hct (39.0-53.0) % MCV (80.0-100.0) fL POC Glucose (mg/dL) 171 H 151 H 131 H (75-99) mg/dL Calcium (8.4-10.2) mg/dL Magnesium (1.6-2.3) mg/dL Total Protein (6.3-8.2) g/dL Albumin (3.5-5.0) g/dL 12/09/18 12/09/18 12/09/18 Range/Units 05:09 05:09 07:14 RBC 2.38 L (4.30-5.90) m/uL Hgb 7.9 L (13.0-17.5) gm/dL Hct 24.2 L (39.0-53.0) % MCV 101.5 H (80.0-100.0) fL POC Glucose (mg/dL) 101 H (75-99) mg/dL Calcium 8.3 L (8.4-10.2) mg/dL Magnesium 2.5 H (1.6-2.3) mg/dL Total Protein 5.3 L (6.3-8.2) g/dL Albumin 2.9 L (3.5-5.0) g/dL - Imaging and Cardiology Chest x-ray: image reviewed Assessment and Plan (1) Morbid obesity Current Visit: Yes Status: Chronic Code(s): E66.01 - MORBID (SEVERE) OBESITY DUE TO EXCESS CALORIES SNOMED Code(s): 694518544 (2) COPD (chronic obstructive pulmonary disease) Current Visit: Yes Status: Chronic Code(s): J44.9 - CHRONIC OBSTRUCTIVE PULMONARY DISEASE, UNSPECIFIED SNOMED Code(s): 45500788 (3) Family history of coronary artery disease Current Visit: Yes Status: Chronic Code(s): Z82.49 - FAMILY HX OF ISCHEM HEART DIS AND OTH DIS OF THE CIRC SYS SNOMED Code(s): 811913329 (4) Coronary artery disease Current Visit: Yes Status: Chronic Code(s): I25.10 - ATHSCL HEART DISEASE OF [place] CORONARY ARTERY W/O ANG PCTRS SNOMED Code(s): 11976550 (5) Aortic stenosis Current Visit: Yes Status: Chronic Code(s): I35.0 - NONRHEUMATIC AORTIC ( VALVE) STENOSIS SNOMED Code(s): 75821924 (6) Diabetes mellitus Current Visit: Yes Status: Chronic Code(s): E11.9 - TYPE 2 DIABETES MELLITUS WITHOUT COMPLICATIONS SNOMED Code(s): 14290271 (7) Hyperlipidemia Current Visit: Yes Status: Chronic Code(s): E78.5 - HYPERLIPIDEMIA, UNSPECIFIED SNOMED Code(s): 57784182 (8) Hypertension Current Visit: Yes Status: Chronic Code(s): I10 - ESSENTIAL (PRIMARY) HYPERTENSION SNOMED Code(s): 66521164 (9) Osteoarthritis Current Visit: Yes Status: Chronic Code(s): M19.90 - UNSPECIFIED OSTEOARTHRITIS, UNSPECIFIED SITE SNOMED Code(s): 848470595 (10) Tobacco dependence in remission Current Visit: No Status: Resolved Code(s): F17.201 - NICOTINE DEPENDENCE, UNSPECIFIED, IN REMISSION SNOMED Code(s): 974168758 Plan: 1. Continue aspirin, statin, Plavix, DARWIN inhibitor, beta paul therapy. Will increase beta paul therapy as tolerated. Will increase lisinopril to 10 mg daily 2. Continue amiodarone for A. fib prophylaxis. No need for anticoagulation unless patient is in atrial fibrillation for greater than 24 hours. 3. Encourage incentive spirometry is 10 times every hour while awake. Encourage continued smoking cessation. 4. Will give lasix 40 mg IV again today. Patient will be discharged on 40 mg oral daily. 5. Increase activity. Encourage ambulation. PT/OT/cardiac rehab following. 6. Monitor daily labs and x-rays. Electrolyte replacement per protocol. No transfusion at this time. 7. Pain control with current medication regimen. No narcotics. 8. Bronchodilators per pulmonology. Ultrasound of left chest completed, small left pleural effusion with 3.5 cm pocket not marked for thoracentesis as lung noted within the fluid pocket. 9. GI prophylaxis with Protonix, DVT prophylaxis with subcu heparin, SCDs. 10. Continue daily doxycycline, patient is on lifetime antibiotics per Dr. Ricci for postoperative infections after hip surgeries. 11. Insulin management per primary care service. 12. Transfer orders have been placed for 3 S. cardiac stepdown unit. May transfer when bed available. 13. Anticipate discharge today to [facility]. 14. More recommendations to follow. Time with Patient: Greater than 30
[2018-12-09] MEDS: IPRATROPIUM-ALBUTEROL 3 ML NEB INHALATION SCH ×2 (09:32→13:36)
--- NOTE | 2018-12-09 10:32 | P.PN ---
Subjective Progress Note Date: 12/09/18 On today's evaluation of 12/09/2018, the patient is being seen for a follow-up. The patient is post aortic valve replacement and the patient had a bioprosthetic valve inserted and the patient is postop day #8. The patient also had a single-vessel bypass surgery with saphenous vein graft to RCA. Doing well. No specific complaints. Cardiac rhythm remains sinus. No nausea. No vomiting. No abdominal pain. No chest pain. The patient finished and completed his IV amiodarone loading and currently is on oral amiodarone. Cardiology is on the case. The plan is to transfer this patient to rehabilitation today. He is ambulating. No cough. No sputum production. He is on oral Lasix. He is on oral amiodarone. He is on oral metoprolol. No other issues for now. Using incentive spirometer and pulling up more than 1500. Objective - Vital Signs Vital signs: Vital Signs Temp 98.3 F 12/09/18 08:00 Pulse 62 12/09/18 09:41 Resp 30 H 12/09/18 08:00 BP 142/52 12/09/18 08:00 Pulse Ox 100 12/09/18 08:00 Intake & Output 12/08/18 12/09/18 12/09/18 18:59 06:59 18:59 Intake Total 600 Output Total 730 750 300 Balance -730 -150 -300 Weight 127.2 kg Intake: Oral 600 Output: Urine 730 750 300 Other: Voiding Method Urinal Urinal Urinal # Voids 0 # Bowel Movements 1 ABP, PAP, CO, CI - Last Documented Arterial Blood Pressure 189/45 Pulmonary Artery Pressure 25/17 Cardiac Output 5.9 Cardiac Index 2.4 - Exam - Constitutional General appearance: Present: cooperative, no acute distress, obese - Respiratory Details: Lungs sounds diminished bilaterally, left greater than right. Respirations even , nonlabored. Currently on room air with oxygen saturation 97%. Able to achieve 1250 mL on his incentive spirometry. Strong productive cough. - Cardiovascular Details: S1, S2 present. Regular rate and rhythm, sinus rhythm on telemetry. A/V epicardial pacemaker wires present, grounded. Sternum stable. Palpable peripheral pulses bilaterally. No edema present. No calf pain or tenderness noted. Heart hugger in place with patient demonstrating appropriate use with encouragement. Antiembolism stockings, SCDs present. - Gastrointestinal Gastrointestinal Comment(s): Abdomen soft, nontender, nondistended, obese. Active bowel sounds present 4 quadrants. Tolerating diet. Positive bowel movement 2/3. - Genitourinary Genitourinary Comment(s): Patient continues to void clear, yellow urine, output 350 mL in the last 8 hours. - Integumentary Integumentary Comment(s): Skin is warm and dry with evidence of good perfusion. Anterior chest incision well approximated and covered with dry intact dressing. Right lower extremity EVH site well approximated with Dermabond. - Neurologic Neurologic: Present: CNII-XII intact - Musculoskeletal Musculoskeletal: Present: gait normal, generalized weakness, strength equal bilaterally - Psychiatric Psychiatric: Present: A&O x's 3, appropriate affect, intact judgment & insight - Labs CBC & Chem 7: 12/09/18 05:09 12/09/18 05:09 Labs: Abnormal Lab Results - Last 24 Hours (Table) 12/08/18 12/08/18 12/08/18 Range/Units 16:59 17:30 20:51 RBC (4.30-5.90) m/uL Hgb (13.0-17.5) gm/dL Hct (39.0-53.0) % MCV (80.0-100.0) fL POC Glucose (mg/dL) 171 H 151 H 131 H (75-99) mg/dL Calcium (8.4-10.2) mg/dL Magnesium (1.6-2.3) mg/dL Total Protein (6.3-8.2) g/dL Albumin (3.5-5.0) g/dL 12/09/18 12/09/18 12/09/18 Range/Units 05:09 05:09 07:14 RBC 2.38 L (4.30-5.90) m/uL Hgb 7.9 L (13.0-17.5) gm/dL Hct 24.2 L (39.0-53.0) % MCV 101.5 H (80.0-100.0) fL POC Glucose (mg/dL) 101 H (75-99) mg/dL Calcium 8.3 L (8.4-10.2) mg/dL Magnesium 2.5 H (1.6-2.3) mg/dL Total Protein 5.3 L (6.3-8.2) g/dL Albumin 2.9 L (3.5-5.0) g/dL Assessment and Plan Plan: #1. Severe symptomatic aortic valve stenosis and coronary artery disease, status post aortic valve replacement and one-vessel bypass, SVG to the RCA,post op day 8 #2. Postoperative ventilator management, he was successfully extubated and currently the patient is on room air oxygen #3. Postop blood loss anemia, and expected outcome of bypass surgery, and aortic valve replacement surgery, current hemoglobin is at 7.9 #4. Diabetes mellitus with diabetic neuropathy #5. Hypertension, hyperlipidemia #6. Morbid obesity #7. Osteoarthritis #8. Release episodes of pneumonia #9. Postoperative infections owing left total hip arthroplasty, and right total hip arthroplasty,requiring IV antibiotic infusions maintenance dose of oral doxycycline Plan Continue the supportive care. Monitor the cardiac rhythm. The patient is currently in sinus. The patient is doing extremely well. The patient was sent to rehabilitation. No active pulmonary issues at this point in time.
[2018-12-09 11:43] LABS: Glucose,Whole Blood 86 mg/dL (75-99)
--- NOTE | 2018-12-09 11:46 | P.DS ---
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 Consult: post cardiac surgery Do you want consulting provider notified?: Yes 12/03/18 11:50 Consult Physician Routine Consulting Provider: Сергей Ricci Consult Reason/Comments: infections post prior surgeries, abt recommendations Do you want consulting provider notified?: Yes Primary care physician: Jonathan Graham - Discharge Diagnosis(es) (1) Morbid obesity Current Visit: Yes Status: Chronic (2) COPD (chronic obstructive pulmonary disease) Current Visit: Yes Status: Chronic (3) Family history of coronary artery disease Current Visit: Yes Status: Chronic (4) Coronary artery disease Current Visit: Yes Status: Chronic (5) Aortic stenosis Current Visit: Yes Status: Chronic (6) Diabetes mellitus Current Visit: Yes Status: Chronic (7) Hyperlipidemia Current Visit: Yes Status: Chronic (8) Hypertension Current Visit: Yes Status: Chronic (9) Osteoarthritis Current Visit: Yes Status: Chronic (10) Tobacco dependence in remission Current Visit: No Status: Resolved Hospital Course: FINAL DIAGNOSIS: 1. Severe aortic valve stenosis 2. Coronary artery disease 3. Hypertension 4. Hyperlipidemia 5. Family history of coronary artery disease 6. Diabetes mellitus with neuropathy with preoperative hemoglobin A1c 6.3% 7. Previous tobacco dependence 8. Moderate COPD with preoperative FEV1 56% of predicted 9. Morbid obesity 10. Rare EtOH use 11. Depression 12. Shingles 13. Basal cell skin carcinoma diagnosed in 2016 and 2017 14. Osteoarthritis 15. Both right and left hip replacements of postoperative infections and subsequent IV antibiotics per Dr. Ricci 16. Postoperative acute blood loss anemia 17. Postoperative follow-up from standing without loss of consciousness and without injury 18. Postoperative atrial fibrillation PRINCIPAL PROCEDURE: 1. Elective aortic valve replacement using a 23 mm Pelaez magna ease prosthetic valve 2. Coronary artery bypass grafting 1 vessel, reverse saphenous vein graft to the right coronary artery 3. Endoscopic vein harvest, right greater saphenous vein 4. Epi-aortic ultrasound 5. Intraoperative transesophageal echocardiogram 6. Closure of the sternum using Oden cable system HISTORY OF PRESENT ILLNESS: This is a 68-year-old inactive gentleman who follows on an outpatient basis with Dr. Jonathan Graham. He had been experiencing exertional dyspnea for a few months. He did admit to occasional back pain but denied any syncopal episodes, chest pain, nausea, diaphoresis, or any other symptoms. Due to his increasing symptoms he was brought to the [facility] by Dr. Brennan for transesophageal echocardiogram and left heart catheterization. The CARMELA demonstrated a 3 leaflet aortic valve with heavy calcification and severe restriction, valve area measuring 0.9 cm by planimetry consistent with severe aortic stenosis, trace mitral regurgitation, mild tricuspid regurgitation, and concentric left ventricular hypertrophy with normal left ventricular function. Heart catheterization demonstrated calcified left main coronary artery without significant stenosis, right coronary artery with proximal stenosis 40-50% and mid stenosis 70-80%, and 30-40% stenosis of the circumflex coronary artery. The patient was referred to Dr. Irby from cardiothoracic surgery. He was recommended to undergo single vessel coronary artery bypass and bioprosthetic aortic valve replacement. The usual perioperative course was discussed in detail with the patient and his family, all risks and benefits were discussed, all questions were answered, and consent was obtained to proceed with surgery. The patient was discharged to home to be brought back in as an outpatient after maximizing medical therapy and obtaining dental clearance. HOSPITAL COURSE: The patient was brought to the hospital on 12/02/2018, taken to the preoperative area, prepared in the usual fashion, and subsequently taken to the operating room where Dr. Irby who performed elective aortic valve replacement using a 23 mm Pelaez magna ease prosthetic valve, coronary artery bypass grafting 1 vessel, reverse saphenous vein graft to the right coronary artery, endoscopic vein harvest, right greater saphenous vein, epi-aortic ultrasound, intraoperative transesophageal echocardiogram, and closure of the sternum using Oden cable system. Upon completion of surgery the patient was transferred to the cardiovascular intensive care unit where he was recovered, monitored hemodynamically, and where he progressed to cardiac rehabilitation phase 1. He was extubated, all lines, tubes, and drips were discontinued when appropriate, and transfer orders were placed for 3 cells cardiac stepdown unit, however there was no bed availability and the patient remained in the intensive care unit until discharge as an overflow patient. He did fall postoperatively when trying to get up without assistance, however he never lost consciousness and had no injuries. He did have an episode of atrial fibrillation with conversion to normal sinus rhythm after initiation of amiodarone. His oxygen was titrated down, he continued to work with physical and occupational therapy, he was tolerating oral diet, his pain was controlled, and he was ready to be discharged to [facility] subacute rehab on postoperative day #7. He received written and verbal instruction regarding his medications, activity restrictions , signs and symptoms requiring physician notification, and follow-up appointments. COMPLICATIONS: The patient experienced postoperative fall from standing and atrial fibrillation, which were treated accordingly. Patient Condition at Discharge: Stable Plan - Discharge Summary Discharge Rx Participant: Yes New Discharge Prescriptions: New Acetaminophen Tab [Tylenol] 650 mg PO Q6HR PRN tab PRN Reason: Pain Scale 6 To 10 Acetaminophen Tab [Tylenol] 325 mg PO Q6HR PRN tab PRN Reason: Pain Scale 1 To 5 Amiodarone [Cordarone] 400 mg PO BID tab Aspirin 325 mg PO DAILY tab Atorvastatin [Lipitor] 40 mg PO DAILY tab Clopidogrel [Plavix] 75 mg PO DAILY tab Heparin Sodium,Porcine [Heparin Sodium] 5,000 unit SQ Q8HR vial Insulin Aspart [NovoLOG (formulary)] 15 unit SQ TID-W/MEALS vial Insulin Aspart [NovoLOG (formulary)] 0 unit SQ [id number] vial Insulin Detemir [Levemir] 40 unit SQ HS syr Insulin Detemir [Levemir] 20 unit SQ DAILY syr Ipratropium-Albuterol Nebulize [Duoneb 0.5 mg-3 mg/3 ml Soln] 3 ml INHALATION RT-QID ampul.neb Ipratropium-Albuterol Nebulize [Duoneb 0.5 mg-3 mg/3 ml Soln] 3 ml INHALATION RT-Q2H PRN ampul.neb PRN Reason: Shortness Of Breath Or Wheezing Lisinopril [Zestril] 10 mg PO DAILY tab Metoprolol Tartrate [Lopressor] 50 mg PO BID tab Pantoprazole [Protonix] 40 mg PO AC-BRKFST tablet.dr Villanosideevangelina-Docusate Sodium [Senokot-S] 2 each PO HS PRN tab PRN Reason: Constipation Continue valACYclovir HCL [Valtrex] 500 mg PO DAILY Citalopram Hydrobromide [CeleXA] 20 mg PO DAILY Furosemide [Lasix] 40 mg PO DAILY Pregabalin [Lyrica] 100 mg PO BID Doxycycline [Vibramycin] 100 mg PO BID Cholecalciferol [Vitamin D3] 1,000 unit PO DAILY Discontinued Aspirin EC [Ecotrin Low Dose] 81 mg PO HS hydrALAZINE HCL [Apresoline] 25 mg PO TID metFORMIN HCL [Glucophage] 500 mg PO BID Meloxicam 15 mg PO DAILY Metoprolol Tartrate [Lopressor] 25 mg PO BID Insulin Aspart [NovoLOG] 0 units SQ TID-W/MEALS PRN PRN Reason: Cbg < 70 Mg/Dl Insulin Glargine [Lantus] 80 unit SQ HS Insulin Aspart [NovoLOG] 27 units SQ TID-W/MEALS Omeprazole [PriLOSEC] 20 mg PO AC-BRKFST traMADol HCL [Ultram] 50 mg PO TID PRN PRN Reason: Pain Discharge Medication List valACYclovir HCL [Valtrex] 500 mg PO DAILY 07/18/15 [History] Citalopram Hydrobromide [CeleXA] 20 mg PO DAILY 10/02/17 [History] Cholecalciferol [Vitamin D3] 1,000 unit PO DAILY 11/12/18 [History] Doxycycline [Vibramycin] 100 mg PO BID 11/12/18 [History] Furosemide [Lasix] 40 mg PO DAILY 11/12/18 [History] Pregabalin [Lyrica] 100 mg PO BID 11/12/18 [History] Acetaminophen Tab [Tylenol] 325 mg PO Q6HR PRN tab 12/09/18 [Rx] Acetaminophen Tab [Tylenol] 650 mg PO Q6HR PRN tab 12/09/18 [Rx] Amiodarone [Cordarone] 400 mg PO BID tab 12/09/18 [Rx] Aspirin 325 mg PO DAILY tab 12/09/18 [Rx] Atorvastatin [Lipitor] 40 mg PO DAILY tab 12/09/18 [Rx] Clopidogrel [Plavix] 75 mg PO DAILY tab 12/09/18 [Rx] Heparin Sodium,Porcine [Heparin Sodium] 5,000 unit SQ Q8HR vial 12/09/18 [Rx] Insulin Aspart [NovoLOG (formulary)] 0 unit SQ [id number] vial 12/09/18 [Rx] Insulin Aspart [NovoLOG (formulary)] 15 unit SQ TID-W/MEALS vial 12/09/18 [Rx] Insulin Detemir [Levemir] 20 unit SQ DAILY syr 12/09/18 [Rx] Insulin Detemir [Levemir] 40 unit SQ HS syr 12/09/18 [Rx] Ipratropium-Albuterol Nebulize [Duoneb 0.5 mg-3 mg/3 ml Soln] 3 ml INHALATION RT -Q2H PRN ampul.neb 12/09/18 [Rx] Ipratropium-Albuterol Nebulize [Duoneb 0.5 mg-3 mg/3 ml Soln] 3 ml INHALATION RT -QID ampul.neb 12/09/18 [Rx] Lisinopril [Zestril] 10 mg PO DAILY tab 12/09/18 [Rx] Metoprolol Tartrate [Lopressor] 50 mg PO BID tab 12/09/18 [Rx] Pantoprazole [Protonix] 40 mg PO AC-BRKFST tablet. 12/09/18 [Rx] Sennosides-Docusate Sodium [Senokot-S] 2 each PO HS PRN tab 12/09/18 [Rx] Follow up Appointment(s)/Referral(s): Сергей Ricci MD [STAFF PHYSICIAN] - As Needed Jameel Granda DO [Doctor of Osteopathic Medicine] - 2 Weeks Alex Irby MD [STAFF PHYSICIAN] - 01/02/19 10:15 am Jonathan Graham DO [Primary Care Provider] - 12/19/18 8:45 am Demian Brennan MD [STAFF PHYSICIAN] - 12/15/18 3:00 pm Ambulatory/Diagnostic Orders: Complete Blood Count w/diff [LAB.AMB] Time Frame: 3 Days, Location: None Selected Comprehensive Metabolic Panel [LAB.AMB] Time Frame: 3 Days, Location: None Selected Activity/Diet/Wound Care/Special Instructions: DISCHARGE INSTRUCTIONS: 1. No driving for 4 weeks, or until physician gives their ok. 2. The patient should sleep in their own bed, no medical bed needed. 3. Stairs are not an issue. If the bedroom is upstairs, it is advised that the patient go up at night and down in the morning for the first week. Go slowly, using handrail and take 1 step at a time. 4. AVE hose are to be worn for 30 days or until physician discontinues. 5. Heart hugger is to be worn 100% of the time until physician discontinues.( except when showering) 6. No lifting, pushing, or pulling more than 10 pounds for 12 weeks. The physician will advise of any restriction changes. 7. The patient is expected to continue the prescribed walking program. 8. Continue pain control per as needed orders. 9. Continue with incentive spirometry and splinting/heart hugger until otherwise directed by the physician. 10. Must shower daily using liquid antibacterial soap and a separate white washcloth for each individual incision. 11. Routine sternal incision care. No powders, lotions, ointments on incisions. 12. Please call surgeon/CHEESE PROCESSOR for temp greater than 101 F or purulent drainage from incisions. 13. All prescriptions given by surgeon for 30 days. Refills need to be filled through manager search engine/primary care physician. 14. A Red armband has been placed on the patient. It should be worn for 30 days post surgery and will be removed by the cardiac surgeons. If an ER visit is necessary, please make sure the number on the Red armband is called. SUB-ACUTE REHAB/HOME HEALTH SERVICES TO PROVIDE: RN SKILLED HOME CARE SERVICES FOR POST-OP SURGICAL PATIENTS WITH THE FOLLOWING: Coronary Artery Bypass Surgery (CABG), Mitral Valve Replacement/ Repair ( MVR), Aortic Valve Replacement/Repair (AVR) RN TO CONTINUE EDUCATION FROM ``ROAD TO A HEALTH HEART PATIENT EDUCATION MANUAL (GIVEN TO PATIENT IN THE HOSPITAL) MEDICATION RECONCILIATION WITH EDUCATION NEEDED ON FIRST HOME VISIT EMPHASIZE IMPORTANCE OF WEARING BREAST SUPPORT/HEART HUGGER ENCOURAGE USE OF INCENTIVE SPIROMETER 10 X EVERY HOUR WHILE AWAKE ENCOURAGE UTILIZATION OF LOWER EXTREMITY COMPRESSION STOCKINGS/AVE HOSE and ELEVATE LEGS ABOVE LEVEL OF HEART WHILE AT REST. ENCOURAGE AMBULATION 3-5x/day INCREASING TOLERATES, WHILE AVOID EXTREMES IN TEMPERATURE FREQUENCY: RN TO OPEN THE PATIENT WITHIN 24 HOURS OF DISCHARGE FROM REHAB WITH [place] [facility] [place] VISIT 2-3 X A WEEK FOR 4 WEEKS ESTABLISHED BY PATIENT NEEDS. LABORATORY: CBC, CMP TO BE DRAWN ON THE THIRD DAY HOME, (RAN STAT) FAX RESULTS TO [phone]. TELEHEALTH PARAMETERS: WEIGHT: NOTIFY MD OF WEIGHT GAIN OF 2 LBS IN 24 HOURS OR 5 LBS IN ONE WEEK HR: NOTIFY MD OF HR <55 BPM OR HR>100 BPM BP: NOTIFY MD IF BP <90/55 OR BP>140/100 O2 SAT: NOTIFY MD IF PO2<93% ON ROOM AIR SEND TELEHEALTH REPORT TO ROAD BOSS AND CARDIOVASCULAR SURGEON THE FIRST WEEK OF CARE AND THEN BI-WEEKLY. PLEASE ADDITIONALLY COMMUNICATE ANY ABNORMALS AND NEW FINDINGS TO THE SURGEONS OFFICE. Discharge Disposition: TRANSFER TO SNF/ECF
[2018-12-09] MEDS: CHOLECALCIFEROL 1,000 UNIT TAB PO SCH (11:47)
[2018-12-09 12:08] VITALS: BP 106/44; PULSE 61; RESP 26; TEMP 98.1
--- NOTE | 2018-12-09 13:11 | XR ---
EXAMINATION TYPE: XR chest 2V DATE OF EXAM: 12/09/2018 COMPARISON: Prior chest x-ray 12/08/2018 HISTORY: Status post cardiac surgery TECHNIQUE: Frontal and lateral views of the chest are obtained. FINDINGS: Patient is post median sternotomy and cardiac valve replacement. Heart remains enlarged. L eft hemidiaphragm is obscured. No evident pneumothorax. Lung volumes are low. There are cardiac and e picardial pacing leads. Prominent lung volume may be indicative of underlying COPD. IMPRESSION: Findings are similar to prior exam. Probable left lower lobe atelectasis and associated effusion. Stable cardiomegaly, postop changes.
--- NOTE | 2018-12-09 13:34 | P.PN ---
Subjective Progress Note Date: 12/09/18 68-year-old male one of Dr. Graham patient with past medical history of aortic stenosis, hypertension, hyperlipidemia, history of diabetes, severe GERD chronic edema mild depression who has been experiencing exertional dyspnea over the last 6 month without any syncopal episode denies any chest pain. Patient subsequently seen cardiology transesophageal echocardiogram and heart catheter revealed severe calcified aortic valve stenosis with severe restriction also patient had trace mitral regurgitation. 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 Patient was seen pulmonary PFT performed and showed mild obstructive lung disease patient ended up being hospitalized for elective surgery today successfully and ended up having one-vessel coronary artery bypass saphenous to the RCA and aortic valve replacement using bioprosthetic valve. Patient was admitted to the intensive care unit still on mechanical ventilation still on induced coma this point chest tube is in place. 12/03: Patient is extubated sitting in the chair doing well still have soreness and discomfort from the incision site, blood sugar is in the low 100 still on insulin drip close to 4.5 units an hour. Patient respiratory status is much better so far. No arrhythmia or A. fib. 12/04: Patient remains in the intensive care unit. This morning's blood sugars are running high and he will be started on home insulins but at a lower dose. Lantus will be at 40 units at bedtime tonight and insulin drip will be discontinued, NovoLog 12 units scheduled with meals and scale. Patient has been seen by Dr. Ricci with recommendations to continue his normal dose of chronic doxycycline. 12/05: Blood sugars are now running in the 200s up to 284 and Levemir 20 units in the morning added to his scheduled 40 units at bedtime along with NovoLog increased from 12 units with meals to 15 units with meals along with NovoLog scale to be continued. Leonard is out, patient is waiting to void. right sidedChest tube remains in place. Patient denies any chest pain or shortness of breath. patient monitor is sinus rhythm running in the 80s. case management and social service liaison following for possible inpatient rehab or second choice would be [facility]. 12/06: This is postop day 4 for patient status post aortic valve placement and coronary artery bypass grafting 1. Patient's doing well, noted to be sitting up in bed. Does complain of some chest discomfort related to postsurgical pain. Incentive spirometer at bedside encouraged to use. Blood sugars running 200s to 160s, no adjustments are made on his insulin today. Right chest tube in place, with plans for removal today. 2: Patient resting comfortably in bed, he continues to get up in the chair often. He denies any shortness of breath, cough, nausea, chest pain, vomiting. Repeat chest x-ray is stable, shows small left pleural effusion. Hemoglobin 8 , creatinine 1, BUN 29. Vital signs remain stable, blood pressure 132/48, heart rate 67, O2 saturation 98% via 2 L nasal cannula. Encouraged to continue to use incentive spirometer and increase activity as tolerated. Patient remains in the intensive care unit, but is cardiac stepdown overflow. 12/08: Patient remains in the intensive care unit waiting for cardiac stepdown unit bed. Patient went into A. fib with controlled rate last evening and started on amiodarone drip. He is currently in a sinus rhythm. He did ambulate with physical therapy today and feels quite tired afterwards. Yesterday he had several bowel movements but none today. He states he is not eating very much as he is not very hungry. He denies any difficulty swallowing. No thrush noted. He does have occasional cough. Plan is for discharge to [facility] tomorrow and insurance authorization will need to be obtained with [facility]. 12/09: Patient remains in a sinus rhythm. Pulse ox is 95-100% on room air. Blood pressure 142/52, heart rate running in the 60s, patient has been afebrile. White count is normal, hemoglobin 7.9, creatinine 1.09. Blood sugars are running 95-151. Anticipate possible discharge to [facility] today once insurance authorization is obtained. [facility] [place]. Patient will continue on same diabetic medications. Review of system: CONSTITUTIONAL: Denies fever or chills Reports fatigue. EYES: No icterus sclerae, no conjunctivitis. EARS, NOSE, MOUTH, THROAT, and FACE: No sore throat, lymphadenopathy, carotid bruits or deformity. RESPIRATORY: No SOB cough or wheezes. Still have chest wall pain from the surgical incision CARDIOVASCULAR: Positive CP, no Palpitation, denies PND, Orthopnea, or angina. GASTROINTESTINAL: No Abd pain, Nausea or vomiting, no Diarrhea or constipation, No GI Bleed, no distention or masses. GENITOURINARY: Negative for Hematuria or UTI, no kidney stones. INTEGUMENT/BREAST: Negative for any muscular injury with mild osteoarthritis.. HEMATOLOGIC/LYMPHATIC: Negative for bleed or purpura. MUSCULOSKELTAL: Negative for Myalgia or arthralgia. NEURLOGICAL: No LOC, Sz or syncope, blurred vision dizziness or abnormality.. BEHAVIORAL/PSYCH: Negative. ENDOCRINE: Negative. Objective - Vital Signs Vital signs: Vital Signs Temp 98.3 F 12/09/18 08:00 Pulse 65 12/09/18 08:00 Resp 30 H 12/09/18 08:00 BP 142/52 12/09/18 08:00 Pulse Ox 100 12/09/18 08:00 Intake & Output 12/08/18 12/09/18 12/09/18 18:59 06:59 18:59 Intake Total 600 Output Total 730 750 Balance -730 -150 Weight 127.2 kg Intake: Oral 600 Output: Urine 730 750 Other: Voiding Method Urinal Urinal # Voids 0 ABP, PAP, CO, CI - Last Documented Arterial Blood Pressure 189/45 Pulmonary Artery Pressure 25/17 Cardiac Output 5.9 Cardiac Index 2.4 - Exam General appearance: Present: cooperative, no acute distress, obese, patient in bedside recliner - EENT Eyes: Present: EOMI, PERRLA, normal appearance - Neck Neck: Present: normal ROM. Absent: lymphadenopathy, stridor, thyromegaly - Respiratory Respiratory: bilateral: CTA, diminished, negative: rales, rhonchi, wheezing - Cardiovascular Rhythm: regular Heart sounds: normal: S1, S2 - Gastrointestinal General gastrointestinal: Present: normal bowel sounds, soft. Absent: distended , hepatomegaly, organomegaly, splenomegaly, tenderness - Neurologic Neurologic: Present: CNII-XII intact. Absent: focal deficits - Musculoskeletal Musculoskeletal: Present: generalized weakness, strength equal bilaterally. Absent: right sided weakness, left sided weakness - Psychiatric Psychiatric: Present: A&O x's 3, appropriate affect - Labs CBC & Chem 7: 12/09/18 05:09 12/09/18 05:09 Labs: Abnormal Lab Results - Last 24 Hours (Table) 12/08/18 12/08/18 12/08/18 Range/Units 16:59 17:30 20:51 RBC (4.30-5.90) m/uL Hgb (13.0-17.5) gm/dL Hct (39.0-53.0) % MCV (80.0-100.0) fL POC Glucose (mg/dL) 171 H 151 H 131 H (75-99) mg/dL Calcium (8.4-10.2) mg/dL Magnesium (1.6-2.3) mg/dL Total Protein (6.3-8.2) g/dL Albumin (3.5-5.0) g/dL 12/09/18 12/09/18 12/09/18 Range/Units 05:09 05:09 07:14 RBC 2.38 L (4.30-5.90) m/uL Hgb 7.9 L (13.0-17.5) gm/dL Hct 24.2 L (39.0-53.0) % MCV 101.5 H (80.0-100.0) fL POC Glucose (mg/dL) 101 H (75-99) mg/dL Calcium 8.3 L (8.4-10.2) mg/dL Magnesium 2.5 H (1.6-2.3) mg/dL Total Protein 5.3 L (6.3-8.2) g/dL Albumin 2.9 L (3.5-5.0) g/dL Assessment and Plan Plan: 1 post aortic valve placement for severe calcified aortic valve stenosis patient had bioprosthetic valve successful surgery, continue current plan of care. 2 post one-vessel bypass surgery with saphenous to the RCA: Stable and doing well. Intensive care management per Dr. Granda. 3 diabetes mellitus type II, insulin requiringuncontrolled secondary to hyperglycemia. Levemir 20 units in the morning added to his scheduled 40 units at bedtime along with NovoLog increased from 12 units with meals to 15 units with meals along with NovoLog scale to be continued. 4 post op atrial fibrillation, expected with surgery. He is currently in a sinus rhythm. 5 hyperlipidemia: Remain on atorvastatin 40 mg daily. 6 stage II chronic kidney disease: Daily lab and continue hydration. 7 mild abnormal liver function test: Which most likely hypoperfusion post surgery. 8 hypertension: Patient was started on hydralazine was using at home along with metoprolol resume both medication. 9 chronic pain syndrome: Patient will be back on his oral hydrocodone and tramadol. 10 GI prophylaxis: Patient remain on pantoprazole. 11. Acute blood loss anemia, expected with surgery. Discharge plan: [place] under the care of Dr. Washington. Impression and plan of care have been directed as dictated by the signing physician. Bryanna Coker nurse practitioner acting as scribe for signing physician.
[2018-12-10] MEDS ORDERED: LISINOPRIL 10 MG TAB PO SCH (09:00)
[2018-12-10] MEDS ORDERED: FUROSEMIDE 40 MG TAB PO SCH (09:00)
== END 2018-12-09 13:59 | DRG 220 ==
LOC: 2ORMAIN 12-02 05:28 → 2SICU 12-02 14:53
PROVIDERS: ADMIT Surgery; ATTEND Surgery
PROC: 5A1221Z Performance of Cardiac Output, Continuous (ICD-10-PCS; 2018-12-02)
PROC: B24BZZ4 Ultrasonography of Heart with Aorta, Transesophageal (ICD-10-PCS; 2018-12-02)
PROC: 02RF08Z Replacement of Aortic Valve with Zooplastic Tissue, Open Approach (ICD-10-PCS; principal; 2018-12-02 08:00)
PROC: 021009W Bypass Coronary Artery, One Artery from Aorta with Autologous Venous Tissue, Open Approach (ICD-10-PCS; 2018-12-02 08:00)
PROC: 06BP4ZZ Excision of Right Saphenous Vein, Percutaneous Endoscopic Approach (ICD-10-PCS; 2018-12-02 08:00)
DX: I35.0 Nonrheumatic aortic (valve) stenosis (principal); Z68.42 Body mass index [BMI] 45.0-49.9, adult; D62 Acute posthemorrhagic anemia; I25.10 Atherosclerotic heart disease of native coronary artery without angina pectoris; E78.5 Hyperlipidemia, unspecified; M19.90 Unspecified osteoarthritis, unspecified site; F17.201 Nicotine dependence, unspecified, in remission; E11.40 Type 2 diabetes mellitus with diabetic neuropathy, unspecified; E66.01 Morbid (severe) obesity due to excess calories; Z96.643 Presence of artificial hip joint, bilateral; K21.9 Gastro-esophageal reflux disease without esophagitis; I70.0 Atherosclerosis of aorta; S00.81XA Abrasion of other part of head, initial encounter; I25.84 Coronary atherosclerosis due to calcified coronary lesion; W18.30XA Fall on same level, unspecified, initial encounter; E11.22 Type 2 diabetes mellitus with diabetic chronic kidney disease; G89.4 Chronic pain syndrome; I12.9 Hypertensive chronic kidney disease with stage 1 through stage 4 chronic kidney disease, or unspecified chronic kidney disease; N18.2 Chronic kidney disease, stage 2 (mild); F32.9 Major depressive disorder, single episode, unspecified; J44.9 Chronic obstructive pulmonary disease, unspecified; I48.0 Paroxysmal atrial fibrillation; Z83.3 Family history of diabetes mellitus; Z82.5 Family history of asthma and other chronic lower respiratory diseases; Z82.49 Family history of ischemic heart disease and other diseases of the circulatory system; Z81.8 Family history of other mental and behavioral disorders; Z80.8 Family history of malignant neoplasm of other organs or systems; Z79.899 Other long term (current) drug therapy; Z79.4 Long term (current) use of insulin; Z79.2 Long term (current) use of antibiotics; Z79.02 Long term (current) use of antithrombotics/antiplatelets; Z85.828 Personal history of other malignant neoplasm of skin; Z87.01 Personal history of pneumonia (recurrent); Z86.19 Personal history of other infectious and parasitic diseases
CPT/HCPCS: 36415; 70450; 71045; 71046; 72125; 76604; 80053; 82330; 82805; 83735; 84100; 85025; 85027; 85520; 85610; 85730; 86850; 86891; 86900; 86901; 86920; 88305; 88311; 94002; 94640

== ENCOUNTER 2018-12-26 16:08 | Inpatient (IN) | payer MEDICARE ==
--- NOTE | 2018-12-26 16:21 | ED ---
General Adult HPI - General Stated complaint: Hypotension Time Seen by Provider: 12/26/18 16:11 Source: patient Mode of arrival: EMS Limitations: no limitations - History of Present Illness Initial comments: Dictation was produced using [employer] dictation software. please excuse any grammatical, word or spelling errors. Chief Complaint: This is 68-year-old male. He was sent in by his primary care doctor for A. fib with RVR. History of Present Illness: Patient is a 68-year-old male sent in for A. fib RVR. Patient had open heart surgery performed on December 02 of this year. Patient was seen at the [facility]. He was observed to have an episode of atrial fibrillation with RVR with borderline low blood pressure. Patient states he feels slightly woozy. Chart review shows that patient had single- vessel coronary artery bypass graft and aortic valve replacement for severe aortic stenosis and coronary artery disease. Patient was maintained in the hospital for The ROS documented in this emergency department record has been reviewed and confirmed by me. Those systems with pertinent positive or negative responses have been documented in the HPI. All other systems are other negative and/or noncontributory. PHYSICAL EXAM: General Impression: Alert and oriented x3, not in acute distress HEENT: Normocephalic atraumatic, extra-ocular movements intact, pupils equal and reactive to light bilaterally, mucous membranes moist. Cardiovascular: Tachycardic Chest: Lungs clear to auscultation bilaterally, no rhonchi, no wheeze, no rales , surgical site clean dry and intact Abdomen: Bowel sounds present, abdomen soft, non-tender, non-distended, no organomegaly Musculoskeletal: Pulses present and equal in all extremities, no peripheral edema Motor: Power 5/5 bilaterally, no focal deficits noted Neurological: CN II-XII grossly intact, no focal motor or sensory deficits noted Skin: Intact with no visualized rashes Psych: Normal affect and mood ED course: 68-year-old male presents with atrial fibrillation with rapid ventricular rate. He had recent open heart surgery. Laboratory evaluation was obtained. CBC, coag panel, metabolic panel is unremarkable. Cardiac enzymes negative. Chest x-ray shows improvement of left lower lobe pulmonary infiltrate compared to last exam. Patient feels well except when he exerts himself he feels lightheaded and has palpitations. Medications were reviewed. Patient is on amiodarone. Medication list does not include any anticoagulation medications. Also on a beta paul. Patient denies on being any blood thinner medications.Laboratory evaluation obtained. CBC unremarkable. Cardiac panel unremarkable. Metabolic panel shows elevated renal markers with a creatinine of 2.09. Patient given 2.5 IV metoprolol. Rest metabolic panel is unremarkable. Cardiac enzymes negative. Chest x-ray shows improvement. Discussed patient case with cardiothoracic surgery Dr. Vincent and cardiology Dr. Ritchie. Patient be anticoagulated on heparin. Dr. Ritchie recommends increasing his metoprolol to 75 mg twice a day. Patient given intravenous fluids EKG interpretation: Ventricular rate 123, atrial fibrillation with rapid ventricular rate however EKG machine is reading sinus tachycardia. Patient's heart rate is irregular at bedside QRS 106, QTC 463. No MD prolongation, no QTC prolongation, no ST or T-wave changes noted. Overall, this EKG is unremarkable - Related Data Home Medications Medication Instructions Recorded Confirmed valACYclovir HCL [Valtrex] 500 mg PO DAILY 07/18/15 12/26/18 Citalopram Hydrobromide [CeleXA] 20 mg PO DAILY 10/02/17 12/26/18 Cholecalciferol [Vitamin D3] 1,000 unit PO DAILY 11/12/18 12/26/18 Furosemide [Lasix] 40 mg PO BID 11/12/18 12/26/18 Pregabalin [Lyrica] 100 mg PO BID 11/12/18 12/26/18 Amiodarone [Cordarone] 200 mg PO DAILY 12/26/18 12/26/18 Insulin Glargine,Hum.rec.anlog 20 unit SQ QAM 12/26/18 12/26/18 [Basaglar Kwikpen U-100] Insulin Glargine,Hum.rec.anlog 40 unit SQ HS 12/26/18 12/26/18 [Basaglar Kwikpen U-100] Insulin Lispro [humaLOG Kwikpen] 15 unit SQ TID-W/MEALS 12/26/18 12/26/18 Insulin Lispro [humaLOG Kwikpen] See Protocol SQ TID 12/26/18 12/26/18 Pantoprazole [Protonix] 40 mg PO QAM 12/26/18 12/26/18 Sennosides-Docusate Sodium 2 tab PO HS PRN 12/26/18 12/26/18 [Senokot-S] Previous Rx's Medication Instructions Recorded Acetaminophen Tab [Tylenol] 325 mg PO Q6HR PRN tab 12/09/18 Acetaminophen Tab [Tylenol] 650 mg PO Q6HR PRN tab 12/09/18 Aspirin 325 mg PO DAILY tab 12/09/18 Atorvastatin [Lipitor] 40 mg PO DAILY tab 12/09/18 Clopidogrel [Plavix] 75 mg PO DAILY tab 12/09/18 Heparin Sodium,Porcine [Heparin 5,000 unit SQ Q8HR vial 12/09/18 Sodium] Ipratropium-Albuterol Nebulize 3 ml INHALATION RT-QID ampul.neb 12/09/18 [Duoneb 0.5 mg-3 mg/3 ml Soln] Lisinopril [Zestril] 10 mg PO DAILY tab 12/09/18 Metoprolol Tartrate [Lopressor] 50 mg PO BID tab 12/09/18 Allergies Allergy/AdvReac Type Severity Reaction Status Date / Time Penicillins Allergy Rash/Hives Verified 12/26/18 17:05 Review of Systems ROS Statement: Those systems with pertinent positive or pertinent negative responses have been documented in the HPI. ROS Other: All systems not noted in ROS Statement are negative. Past Medical History Past Medical History: Coronary Artery Disease (CAD), Chest Pain / Angina, Diabetes Mellitus, Hyperlipidemia, Hypertension, Osteoarthritis (OA), Pneumonia Additional Past Medical History / Comment(s): SOB, pain mid back, MURMUR, HX OF HERPES, on preventitive valtrex, DIABETIC NEUROPATHY. 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 07-25-15 .LT HIP REPLACEMENT. ADMITTED WITH INC CELLULITIS LT HIP, one-vessel coronary artery bypass saphenous to the RCA and aortic valve replacement using bioprosthetic valve Past Anesthesia/Blood Transfusion Reactions: No Reported Reaction Additional Past Anesthesia/Blood Transfusion Reaction / Comment(s): Pt has received blood transfusion without reaction. Past Psychological History: Depression Smoking Status: Former smoker - Past Family History Father Family Medical History: Diabetes Mellitus, Hypertension, Memory Impairment Mother Family Medical History: CVA/TIA Brother(s) Family Medical History: Diabetes Mellitus, Hyperlipidemia, Hypertension Son(s) Family Medical History: No Reported History General Exam Limitations: no limitations Course Vital Signs 12/26/18 12/26/18 16:09 17:16 Temperature 97.7 F Pulse Rate 121 H 122 H Respiratory 16 18 Rate Blood Pressure 109/56 114/52 O2 Sat by Pulse 98 98 Oximetry Medical Decision Making - Lab Data Result diagrams: 12/26/18 16:28 12/26/18 16:28 Lab Results 12/26/18 12/26/18 12/26/18 Range/Units 16:28 16:28 16:28 WBC 7.0 (3.8-10.6) k/uL RBC 3.48 L (4.30-5.90) m/uL Hgb 10.6 L (13.0-17.5) gm/dL Hct 33.2 L (39.0-53.0) % MCV 95.4 D (80.0-100.0) fL MCH 30.4 (25.0-35.0) pg MCHC 31.9 (31.0-37.0) g/dL RDW 16.0 H (11.5-15.5) % Plt Count 224 (150-450) k/uL Neutrophils % 54 % Lymphocytes % 30 % Monocytes % 6 % Eosinophils % 7 % Basophils % 0 % Neutrophils # 3.8 (1.3-7.7) k/uL Lymphocytes # 2.1 (1.0-4.8) k/uL Monocytes # 0.4 (0-1.0) k/uL Eosinophils # 0.5 (0-0.7) k/uL Basophils # 0.0 (0-0.2) k/uL Hypochromasia Slight Poikilocytosis Moderate Anisocytosis Slight PT 10.7 (9.0-12.0) sec INR 1.0 (<1.2) Sodium 137 (137-145) mmol/L Potassium 4.9 (3.5-5.1) mmol/L Chloride 102 (98-107) mmol/L Carbon Dioxide 23 (22-30) mmol/L Anion Gap 12 mmol/L BUN 37 H (9-20) mg/dL Creatinine 2.09 H (0.66-1.25) mg/dL Est GFR (CKD-EPI)AfAm 36 (>60 ml/min/1.73 sqM) Est GFR (CKD-EPI)NonAf 31 (>60 ml/min/1.73 sqM) Glucose 165 H (74-99) mg/dL POC Glucose (mg/dL) (75-99) mg/dL POC Glu Family Consumer Science Teacher ID Calcium 9.0 (8.4-10.2) mg/dL Magnesium 1.9 (1.6-2.3) mg/dL Total Bilirubin 1.0 (0.2-1.3) mg/dL AST 32 (17-59) U/L ALT 35 (21-72) U/L Alkaline Phosphatase 117 (38-126) U/L Troponin I (0.000-0.034) ng/mL Total Protein 6.3 (6.3-8.2) g/dL Albumin 3.8 (3.5-5.0) g/dL 12/26/18 12/26/18 Range/Units 16:28 16:35 WBC (3.8-10.6) k/uL RBC (4.30-5.90) m/uL Hgb (13.0-17.5) gm/dL Hct (39.0-53.0) % MCV (80.0-100.0) fL MCH (25.0-35.0) pg MCHC (31.0-37.0) g/dL RDW (11.5-15.5) % Plt Count (150-450) k/uL Neutrophils % % Lymphocytes % % Monocytes % % Eosinophils % % Basophils % % Neutrophils # (1.3-7.7) k/uL Lymphocytes # (1.0-4.8) k/uL Monocytes # (0-1.0) k/uL Eosinophils # (0-0.7) k/uL Basophils # (0-0.2) k/uL Hypochromasia Poikilocytosis Anisocytosis PT (9.0-12.0) sec INR (<1.2) Sodium (137-145) mmol/L Potassium (3.5-5.1) mmol/L Chloride (98-107) mmol/L Carbon Dioxide (22-30) mmol/L Anion Gap mmol/L BUN (9-20) mg/dL Creatinine (0.66-1.25) mg/dL Est GFR (CKD-EPI)AfAm (>60 ml/min/1.73 sqM) Est GFR (CKD-EPI)NonAf (>60 ml/min/1.73 sqM) Glucose (74-99) mg/dL POC Glucose (mg/dL) 177 H (75-99) mg/dL POC Glu Family Consumer Science Teacher ID Jeanne Thrasher Calcium (8.4-10.2) mg/dL Magnesium (1.6-2.3) mg/dL Total Bilirubin (0.2-1.3) mg/dL AST (17-59) U/L ALT (21-72) U/L Alkaline Phosphatase (38-126) U/L Troponin I <0.012 (0.000-0.034) ng/mL Total Protein (6.3-8.2) g/dL Albumin (3.5-5.0) g/dL Disposition Clinical Impression: Atrial fibrillation Disposition: ADMITTED IP TO THIS HOSP Condition: Fair Referrals: Jonathan Graham DO [Primary Care Provider] - 1-2 days Decision Time: 18:52
[2018-12-26] MEDS ORDERED: SODIUM CHLORIDE 0.9% 500 ML IV STA (16:30)
[2018-12-26 16:36] LABS: Anisocytosis Slight; Basophils % (A) 0 %; Eosinophils # (A) 0.5 k/uL (0-0.7); Eosinophils % (A) 7 %; HCT 33.2 % (39.0-53.0); HGB 10.6 gm/dL (13.0-17.5); Hypochromasia Slight; Lymphocytes # (A) 2.1 k/uL (1.0-4.8); Lymphocytes % (A) 30 %; MCH 30.4 pg (25.0-35.0); MCHC 31.9 g/dL (31.0-37.0); Monocytes # (A) 0.4 k/uL (0-1.0); Monocytes % (A) 6 %; Neutrophils # (A) 3.8 k/uL (1.3-7.7); Neutrophils % (A) 54 %; Platelet Count 224 k/uL (150-450); Poikilocytosis Moderate; RBC 3.48 m/uL (4.30-5.90)
[2018-12-26 16:37] LABS: Glucose,Whole Blood 177 mg/dL (75-99)
[2018-12-26 16:40] LABS: MCV 95.4 fL (80.0-100.0)
[2018-12-26 16:41] LABS: Prothrombin Time 10.7 sec (9.0-12.0)
--- NOTE | 2018-12-26 16:55 | XR ---
EXAMINATION TYPE: XR chest 1V portable DATE OF EXAM: 12/26/2018 COMPARISON: 12/09/2008 HISTORY: Hypotension atrial fibrillation TECHNIQUE: Single frontal view of the chest is obtained. FINDINGS: There is no heart failure. There is some infiltrate and atelectasis at the left lateral mundo ng base. Costophrenic angles are clear. There are sternal wires. There are chest leads. IMPRESSION: There is left lower lobe pulmonary infiltrate probably improved slightly compared to las t exam. No heart failure seen.
[2018-12-26 16:57] LABS: Albumin 3.8 g/dL (3.5-5.0); Magnesium 1.9 mg/dL (1.6-2.3); Total Protein 6.3 g/dL (6.3-8.2)
[2018-12-26 17:08] LABS: Potassium 4.9 mmol/L (3.5-5.1)
[2018-12-26] MEDS ORDERED: HEPARIN SODIUM,PORCINE 5,000 UNIT/ML 1 ML VIAL IV PRN (17:48)
[2018-12-26] MEDS ORDERED: HEPARIN SODIUM,PORCINE 5,000 UNIT/ML 1 ML VIAL IV ONE (17:48)
[2018-12-26] MEDS ORDERED: METOPROLOL TARTRATE 5 MG/5 ML VIAL IVP STA (17:55)
[2018-12-26] MEDS ORDERED: HEPARIN SOD,PORK IN 0.45% NACL 25,000 UNIT in 0.45% NACL 1 250ML.BAG IV SCH (18:00)
[2018-12-26] MEDS ORDERED: NALOXONE 0.4 MG/ML 1 ML VIAL IV PRN (18:46)
[2018-12-26] MEDS ORDERED: ACETAMINOPHEN TAB 325 MG TAB PO PRN ×2 (18:47→19:35)
[2018-12-26] MEDS ORDERED: SENNOSIDES-DOCUSATE SODIUM 1 EACH TAB PO PRN (19:35)
--- NOTE | 2018-12-26 19:47 | P.HPIM ---
History of Present Illness H&P Date: 12/26/18 Chief Complaint: A. fib with RVR, acute kidney injury, post aortic valve placement with CABG 68-year-old male one of Dr. Graham patient who was admitted to the hospital 12/02/2018 to 12/09/2018 for elective aortic valve placement and one-vessel CABG which is reverse saphenous vein graft to the right coronary artery in by Dr. Irby cardiothoracic. Patient was in the hospital for a few days developed to have A. fib with RVR was started on amiodarone and was back in sinus rhythm. Pulse rate is well-controlled. Patient was transferred to [facility] for rehab. Was seen Dr. Washington today at [facility] on [facility] [address] and found to be in A. fib with RVR pulse rate running about 150 beats per minutes. Also patient was dehydrated dry having hypotension was sent to the emergency department at [facility] where was seen and evaluated found to be in A. fib with RVR with pulse rate rapid. Cardiothoracic and cardiology were inform patient also found to be in acute kidney failure with acute kidney injury most likely ATN creatinine is up to 2.08 from 1.0. Patient was started on gentle hydration Cardizem drip and heparin drip and was admitted to the hospital with above problem. Review of Systems CONSTITUTIONAL: Well-developed no acute respiratory distress. EYES: No icterus sclerae, no conjunctivitis. EARS, NOSE, MOUTH, THROAT, and FACE: No sore throat, lymphadenopathy, carotid bruits or deformity. RESPIRATORY: Mild shortness of breath no wheezes CARDIOVASCULAR: Positive chest wall pain, positive palpitation and PND GASTROINTESTINAL: No Abd pain, Nausea or vomiting, no Diarrhea or constipation, No GI Bleed, no distention or masses. GENITOURINARY: Negative for Hematuria or UTI, no kidney stones. INTEGUMENT/BREAST: Negative for any muscular injury with mild osteoarthritis.. HEMATOLOGIC/LYMPHATIC: Negative for bleed or purpura. MUSCULOSKELTAL: Negative for Myalgia or arthralgia. NEURLOGICAL: No LOC, Sz or syncope, blurred vision dizziness or abnormality.. BEHAVIORAL/PSYCH: Negative. ENDOCRINE: Negative. Past Medical History Past Medical History: Coronary Artery Disease (CAD), Chest Pain / Angina, Diabetes Mellitus, Hyperlipidemia, Hypertension, Osteoarthritis (OA), Pneumonia Additional Past Medical History / Comment(s): SOB, pain mid back, MURMUR, HX OF HERPES, on preventitive valtrex, DIABETIC NEUROPATHY. 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 07-25-15 .LT HIP REPLACEMENT. ADMITTED WITH INC CELLULITIS LT HIP, one-vessel coronary artery bypass saphenous to the RCA and aortic valve replacement using bioprosthetic valve Past Anesthesia/Blood Transfusion Reactions: No Reported Reaction Additional Past Anesthesia/Blood Transfusion Reaction / Comment(s): Pt has received blood transfusion without reaction. Past Psychological History: Depression Smoking Status: Former smoker - Past Family History Father Family Medical History: Diabetes Mellitus, Hypertension, Memory Impairment Mother Family Medical History: CVA/TIA Brother(s) Family Medical History: Diabetes Mellitus, Hyperlipidemia, Hypertension Son(s) Family Medical History: No Reported History Medications and Allergies Home Medications Medication Instructions Recorded Confirmed Type valACYclovir HCL [Valtrex] 500 mg PO DAILY 07/18/15 12/26/18 History Citalopram Hydrobromide [CeleXA] 20 mg PO DAILY 10/02/17 12/26/18 History Cholecalciferol [Vitamin D3] 1,000 unit PO DAILY 11/12/18 12/26/18 History Furosemide [Lasix] 40 mg PO BID 11/12/18 12/26/18 History Pregabalin [Lyrica] 100 mg PO BID 11/12/18 12/26/18 History Acetaminophen Tab [Tylenol] 325 mg PO Q6HR PRN tab 12/09/18 12/26/18 Rx Acetaminophen Tab [Tylenol] 650 mg PO Q6HR PRN tab 12/09/18 12/26/18 Rx Aspirin 325 mg PO DAILY tab 12/09/18 12/26/18 Rx Atorvastatin [Lipitor] 40 mg PO DAILY tab 12/09/18 12/26/18 Rx Clopidogrel [Plavix] 75 mg PO DAILY tab 12/09/18 12/26/18 Rx Heparin Sodium,Porcine [Heparin 5,000 unit SQ Q8HR vial 12/09/18 12/26/18 Rx Sodium] Ipratropium-Albuterol Nebulize 3 ml INHALATION RT-QID ampul.neb 12/09/18 Rx [Duoneb 0.5 mg-3 mg/3 ml Soln] Lisinopril [Zestril] 10 mg PO DAILY tab 12/09/18 12/26/18 Rx Metoprolol Tartrate [Lopressor] 50 mg PO BID tab 12/09/18 12/26/18 Rx Amiodarone [Cordarone] 200 mg PO DAILY 12/26/18 12/26/18 History Insulin Glargine,Hum.rec.anlog 20 unit SQ QAM 12/26/18 12/26/18 History [Basaglar Kwikpen U-100] Insulin Glargine,Hum.rec.anlog 40 unit SQ HS 12/26/18 12/26/18 History [Basaglar Kwikpen U-100] Insulin Lispro [humaLOG Kwikpen] 15 unit SQ TID-W/MEALS 12/26/18 12/26/18 History Insulin Lispro [humaLOG Kwikpen] See Protocol SQ TID 12/26/18 12/26/18 History Pantoprazole [Protonix] 40 mg PO QAM 12/26/18 12/26/18 History Sennosides-Docusate Sodium 2 tab PO HS PRN 12/26/18 12/26/18 History [Senokot-S] Allergies Allergy/AdvReac Type Severity Reaction Status Date / Time Penicillins Allergy Rash/Hives Verified 12/26/18 17:05 Physical Exam Vitals: Vital Signs Temp Pulse Resp BP Pulse Ox 12/26/18 19:30 97.5 F L 118 H 18 127/48 99 12/26/18 18:30 116 H 18 117/61 100 12/26/18 17:16 122 H 18 114/52 98 12/26/18 16:09 97.7 F 121 H 16 109/56 98 Intake and Output 12/26/18 12/26/18 12/26/18 06:59 14:59 22:59 Other: Weight 119.748 kg General Appearance: Alert, cooperative, no distress, appears stated age. Neck HEENT: Supple, no lymphadenopathy, no thyroid enlargement, no carotid bruits. Lungs: Decreased breath sound bilaterally specially in the left side with fine rhonchi no wheezes. Chest Wall: Decrease expansion with deep inspiration no tenderness and no deformity was found on exam, no costochondral pain or discomfort. Incision in the mid sternum area looks good with no sign of infection or induration or redness. Heart: IRRegular rate and rhythm, S1, S2 normal, positive S3, positive aortic valve click no murmur, rub or gallop. Back: Symmetric, no curvature, ROM normal, no CVA tenderness. Abdomen: Soft, non-tender, bowel sounds active all four quadrants, no masses, no organomegaly. Extremities: Trace edema decreased pulse, positive mild osteoarthritis. Pulses: 2+ and symmetric. Skin: Skin color, texture, tugor normal, no rashes or lesions. Neurologic: Alert oriented x3 cranial nerves II through XII intact, no motor deficit, no abnormal balance or gait. Results CBC & Chem 7: 12/26/18 16:28 12/26/18 16:28 Labs: Abnormal Lab Results - Last 24 Hours (Table) 12/26/18 12/26/18 12/26/18 Range/Units 16:28 16:28 16:35 RBC 3.48 L (4.30-5.90) m/uL Hgb 10.6 L (13.0-17.5) gm/dL Hct 33.2 L (39.0-53.0) % RDW 16.0 H (11.5-15.5) % BUN 37 H (9-20) mg/dL Creatinine 2.09 H (0.66-1.25) mg/dL Glucose 165 H (74-99) mg/dL POC Glucose (mg/dL) 177 H (75-99) mg/dL Thrombosis Risk Factor Assmnt - DVT/VTE Prophylaxis DVT/VTE Prophylaxis: Pharmacologic Prophylaxis ordered, Mechanical Prophylaxis ordered Assessment and Plan Plan: 1 A. fib with RVR: Patient was admitted to the hospital with start Cardizem drip continue on amiodarone continue heparin drip continue metoprolol as well we 'll consult cardiology and cardiothoracic surgery. 2 Acute kidney injury with most likely ATN with acute kidney failure decrease GFR significantly, we'll continue gentle hydration repeat BUN/creatinine 24 hours and try to stop any nephrotoxic agent, also consult nephrology. 3 post aortic valve placement: Successful surgery so far with no major complication. 4 post one-vessel CABG was reverse saphenous to the RCI stable so far. 5 type 2 diabetes: Has been on Humalog and long acting insulin resume both continue Accu-Chek with sliding scales coverage. 6 Hypertension: Blood pressure is well-controlled currently on lisinopril and metoprolol. 7 Hyperlipidemia: Continue patient on atorvastatin 40 mg daily. 8 Mild depression: Continue Cipro Lipram 20 mg daily. 9 mild COPD: Continue patient on albuterol/ipratropium nebulizer continue O2 try to keep pulse ox above 90 percentile. 10 GI prophylaxis/GERD: Continue patient on pantoprazole 40 mg daily. 11 DVT prophylaxis: Patient will be started on heparin drip for now and termite renewal inspector anticoagulation will be needed. CODE STATUS: Full code. Admit patient to inpatient status for more than 2 nights.
[2018-12-26] MEDS: IPRATROPIUM-ALBUTEROL 3 ML NEB INHALATION SCH (20:11)
[2018-12-26] MEDS: PREGABALIN 100 MG CAP PO SCH (21:15)
[2018-12-26] MEDS: METOPROLOL TARTRATE 25 MG TAB PO SCH (21:15)
[2018-12-26] MEDS: FUROSEMIDE 40 MG TAB PO SCH (21:15)
[2018-12-26] MEDS: SODIUM CHLORIDE 0.9% 1,000 ML IV SCH (21:15)
[2018-12-27 00:33] LABS: Glucose,Whole Blood 225 mg/dL (75-99)
[2018-12-27] MEDS: INSULIN DETEMIR (LEVEMIR) 100 UNIT/ML SYR SQ SCH ×3 (00:37→21:46)
[2018-12-27 06:57] LABS: Glucose,Whole Blood 191 mg/dL (75-99)
[2018-12-27 07:06] LABS: Basophils % (A) 0 %; Eosinophils # (A) 0.4 k/uL (0-0.7); Eosinophils % (A) 9 %; HCT 32.2 % (39.0-53.0); HGB 10.2 gm/dL (13.0-17.5); Hypochromasia Marked; Lymphocytes # (A) 1.1 k/uL (1.0-4.8); Lymphocytes % (A) 22 %; MCH 30.6 pg (25.0-35.0); MCHC 31.5 g/dL (31.0-37.0); MCV 97.1 fL (80.0-100.0); Mean Platelet Volume 6.8; Monocytes # (A) 0.3 k/uL (0-1.0); Monocytes % (A) 6 %; Neutrophils # (A) 2.9 k/uL (1.3-7.7); Neutrophils % (A) 61 %; Platelet Count 161 k/uL (150-450); Poikilocytosis Moderate; RBC 3.32 m/uL (4.30-5.90); RDW 15.7 % (11.5-15.5); WBC 4.8 k/uL (3.8-10.6)
[2018-12-27 07:32] LABS: Albumin 3.5 g/dL (3.5-5.0); Potassium 5.3 mmol/L (3.5-5.1); Total Bilirubin 0.8 mg/dL (0.2-1.3)
[2018-12-27] MEDS: INSULIN ASPART (NovoLOG) 100 UNIT/ML VIAL SQ SCH ×5 (07:43→21:47)
[2018-12-27] MEDS: IPRATROPIUM-ALBUTEROL 3 ML NEB INHALATION SCH ×4 (07:59→20:12)
[2018-12-27] MEDS: ATORVASTATIN 40 MG TAB PO SCH (08:19)
[2018-12-27] MEDS: CLOPIDOGREL 75 MG TAB PO SCH (08:19)
[2018-12-27] MEDS: CHOLECALCIFEROL 1,000 UNIT TAB PO SCH (08:19)
[2018-12-27] MEDS: CITALOPRAM HYDROBROMIDE 20 MG TAB PO SCH (08:19)
[2018-12-27] MEDS: FUROSEMIDE 40 MG TAB PO SCH ×2 (08:19→18:25)
[2018-12-27] MEDS: LISINOPRIL 10 MG TAB PO SCH (08:21)
[2018-12-27] MEDS: METOPROLOL TARTRATE 25 MG TAB PO SCH ×2 (08:21→21:47)
[2018-12-27] MEDS: valACYclovir 500 MG TAB PO SCH (08:22)
[2018-12-27] MEDS: PREGABALIN 100 MG CAP PO SCH ×2 (08:22→21:46)
[2018-12-27] MEDS: PANTOPRAZOLE 40 MG TABLET PO SCH (08:22)
[2018-12-27] MEDS ORDERED: ASPIRIN 325 MG TAB PO SCH (09:00)
[2018-12-27] MEDS ORDERED: AMIODARONE 200 MG TAB PO SCH (09:00)
[2018-12-27] MEDS ORDERED: DILTIAZEM 125 MG in SODIUM CHLORIDE 0.9% 100 ML IV SCH (09:15)
--- NOTE | 2018-12-27 09:53 | P.NPCON ---
History of Present Illness - Reason for Consult Consult date: 12/27/18 - Chief Complaint Acute kidney injury - History of Present Illness This is a 68-year-old male seen in consultation because of acute kidney injury. He came in because of recurrence of atrial fibrillation from [facility]. He was recuperating there after recent aortic valve replacement and 1 vessel coronary artery bypass graft which was between 12/02/2018, to discharge on 12/09/2018 He denies taking any nonsteroidals antibiotics. No nausea vomiting diarrhea he did feel dizzy on standing up in the [facility]. He was unable to do much walking with shortness of breath on walking about 20 feet per the patient Here in the hospital he is back in normal sinus rhythm, he was on IV Cardizem. Is feeling somewhat better on IV fluids. His appetite is good. Denies any fever chills. No cough. No abdominal pain diarrhea. Is known with diabetes, history of herpes on prolonged treatment with valve acyclovir, right hip replacement 2004 and the done in 2012 and left hip replacement in 2014. Past Medical History Past Medical History: Coronary Artery Disease (CAD), Chest Pain / Angina, Diabetes Mellitus, Hyperlipidemia, Hypertension, Osteoarthritis (OA), Pneumonia , Skin Disorder, Syncope Additional Past Medical History / Comment(s): SOB, pain mid back, MURMUR, HX OF HERPES, DIABETIC NEUROPATHY. Infections to left total hip arthroplasty and rt total hip, heart valve repair/CABG 12/02/18 History of Any Multi-Drug Resistant Organisms: None Reported Past Surgical History: Heart Catheterization, Joint Replacement Additional Past Surgical History / Comment(s): RIGHT HIP REPLACED IN 2004, DEVELOPED INFECTION, AND REDONE IN AUG, 2013. 07-25-15 .LT HIP REPLACEMENT. ADMITTED WITH INC CELLULITIS LT HIP, one-vessel coronary artery bypass saphenous to the RCA and aortic valve replacement using bioprosthetic valve Past Anesthesia/Blood Transfusion Reactions: No Reported Reaction Additional Past Anesthesia/Blood Transfusion Reaction / Comment(s): Pt has received blood transfusion without reaction. Past Psychological History: Depression Additional Psychological History / Comment(s): and lives with family home with . Retired. Stopped smoking several years ago with no history of alcohol use. experience. No international travel. No animals in the home. Smoking Status: Former smoker Past Alcohol Use History: Rare Additional Past Alcohol Use History / Comment(s): No cpap.Lives at home with , retired. Past Drug Use History: None Reported - Past Family History Father Family Medical History: Diabetes Mellitus, Hypertension, Memory Impairment Mother Family Medical History: CVA/TIA Brother(s) Family Medical History: Diabetes Mellitus, Hyperlipidemia, Hypertension Son(s) Family Medical History: No Reported History Medications and Allergies Home Medications Medication Instructions Recorded Confirmed Type valACYclovir HCL [Valtrex] 500 mg PO DAILY 07/18/15 12/26/18 History Citalopram Hydrobromide [CeleXA] 20 mg PO DAILY 10/02/17 12/26/18 History Cholecalciferol [Vitamin D3] 1,000 unit PO DAILY 11/12/18 12/26/18 History Furosemide [Lasix] 40 mg PO BID 11/12/18 12/26/18 History Pregabalin [Lyrica] 100 mg PO BID 11/12/18 12/26/18 History Acetaminophen Tab [Tylenol] 325 mg PO Q6HR PRN tab 12/09/18 12/26/18 Rx Acetaminophen Tab [Tylenol] 650 mg PO Q6HR PRN tab 12/09/18 12/26/18 Rx Aspirin 325 mg PO DAILY tab 12/09/18 12/26/18 Rx Atorvastatin [Lipitor] 40 mg PO DAILY tab 12/09/18 12/26/18 Rx Clopidogrel [Plavix] 75 mg PO DAILY tab 12/09/18 12/26/18 Rx Heparin Sodium,Porcine [Heparin 5,000 unit SQ Q8HR vial 12/09/18 12/26/18 Rx Sodium] Ipratropium-Albuterol Nebulize 3 ml INHALATION RT-QID ampul.neb 12/09/18 Rx [Duoneb 0.5 mg-3 mg/3 ml Soln] Lisinopril [Zestril] 10 mg PO DAILY tab 12/09/18 12/26/18 Rx Metoprolol Tartrate [Lopressor] 50 mg PO BID tab 12/09/18 12/26/18 Rx Amiodarone [Cordarone] 200 mg PO DAILY 12/26/18 12/26/18 History Insulin Glargine,Hum.rec.anlog 20 unit SQ QAM 12/26/18 12/26/18 History [Basaglar Kwikpen U-100] Insulin Glargine,Hum.rec.anlog 40 unit SQ HS 12/26/18 12/26/18 History [Basaglar Kwikpen U-100] Insulin Lispro [humaLOG Kwikpen] 15 unit SQ TID-W/MEALS 12/26/18 12/26/18 History Insulin Lispro [humaLOG Kwikpen] See Protocol SQ TID 12/26/18 12/26/18 History Pantoprazole [Protonix] 40 mg PO QAM 12/26/18 12/26/18 History Sennosides-Docusate Sodium 2 tab PO HS PRN 12/26/18 12/26/18 History [Senokot-S] Allergies Allergy/AdvReac Type Severity Reaction Status Date / Time Penicillins Allergy Rash/Hives Verified 12/26/18 17:05 Physical Exam Vitals: Vital Signs Temp Pulse Pulse Resp BP BP Pulse Ox 12/27/18 08:12 120 H 12/27/18 08:00 98.2 F 120 H 118 H 18 124/82 99 12/27/18 04:40 114 H 18 120/70 100 12/27/18 00:33 115 H 18 115/57 98 12/26/18 20:40 118 H 18 116/57 97 12/26/18 20:21 114 H 16 12/26/18 20:12 118 H 16 94 L 12/26/18 19:57 119 H 18 114/70 99 12/26/18 19:30 97.5 F L 118 H 18 127/48 99 12/26/18 18:30 116 H 18 117/61 100 12/26/18 17:16 122 H 18 114/52 98 12/26/18 16:09 97.7 F 121 H 16 109/56 98 Intake and Output 12/26/18 12/27/18 12/27/18 22:59 06:59 14:59 Intake Total 400 500.526 Output Total 400 700 Balance 400 -400 -199.474 Intake: Intake, IV Titration 180 140.526 Amount Heparin Sod,Pork in 0.45% 20 140.526 NaCl 25,000 unit In 0.45 % NaCl 1 250ml.bag @ 8.35 UNITS/KG/HR 9.99 mls/hr IV .Q24H REPLACED BY [facility] Rx#: [id number] Sodium Chloride 0.9% 1, 160 000 ml @ 80 mls/hr IV . [id number] REPLACED BY [facility] Rx#:[id number] Oral 220 360 Output: Urine 400 700 Other: Weight 119.748 kg 121.2 kg On examination is awake alert oriented comfortable. HEENT exam no JVP neck is supple no facial asymmetry Lungs are clear to auscultation good air entry bilaterally Heart sounds are unremarkable for any murmur rub gallop Currently in normal sinus rhythm. Abdomen soft nontender no organomegaly ascites masses Neurologically awake alert oriented comfortable no focal motor deficit. Extremity exam was no edema warm to touch. Results - Lab Results Most recent lab results Calcium 9.0 mg/dL (8.4-10.2) 12/27/18 06:35 Magnesium 1.9 mg/dL (1.6-2.3) 12/26/18 16:28 12/27/18 06:35 12/27/18 06:35 Assessment and Plan Assessment: Impression 1. Acute kidney injury secondary to atrial fibrillation, postural dizziness suggesting some amount of volume depletion and improving with IV fluids. Creatinine on admission was 2.09 yesterday and is down to 1.81 today. 2. Possible chronic kidney disease trace proteinuria on 11/18/2018. Creatinine though is 1.09 on 12/09/2018. 3. Admitted with recurrence of atrial fibrillation currently back in normal sinus rhythm. 4. Recent aortic valve replacement with a porcine valve and single-vessel CABG. 5. Mild degree of anemia hemoglobin is 10.2. Recommendation. 1. Continue IV fluids normal saline at 75 an hour. 2. Monitor BUN/creatinine electrolytes, hemoglobin, intake and output and blood pressure. 3. Avoid any nephrotoxic medications. 4. Maintain small dose of lisinopril currently on 10 mg which is acceptable. 5. We'll continue to follow
[2018-12-27] MEDS ORDERED: DEXTROSE 5% IN WATER 100 ML with AMIODARONE 150 MG IV ONE (10:00)
[2018-12-27 11:29] LABS: Glucose,Whole Blood 199 mg/dL (75-99)
[2018-12-27] MEDS ORDERED: AMIODARONE 360 MG in DEXTROSE 5% IN WATER 200 ML IV ONE ×2 (11:30)
--- NOTE | 2018-12-27 11:41 | P.PN ---
Subjective Progress Note Date: 12/27/18 68-year-old male one of Dr. Graham patient who was admitted to the hospital 12/02/2018 to 12/09/2018 for elective aortic valve placement and one-vessel CABG which is reverse saphenous vein graft to the right coronary artery in by Dr. Irby cardiothoracic. Patient was in the hospital for a few days developed to have A. fib with RVR was started on amiodarone and was back in sinus rhythm. Pulse rate is well-controlled. Patient was transferred to [facility] on leg for rehab. Was seen Dr. Washington today at [facility] on the [place] and found to be in A. fib with RVR pulse rate running about 150 beats per minutes. Also patient was dehydrated dry having hypotension was sent to the emergency department at [facility] where was seen and evaluated found to be in A. fib with RVR with pulse rate rapid. Cardiothoracic and cardiology were inform patient also found to be in acute kidney failure with acute kidney injury most likely ATN creatinine is up to 2.08 from 1.0. Patient was started on gentle hydration Cardizem drip and heparin drip and was admitted to the hospital with above problem. 12/27: Patient is resting in bed without any acute distress. Patient continues to be in A. fib with RVR pulse rate running about 120. Patient denies any difficulty breathing or shortness of breath at this time. Incisional site remains clean and dry. Patient has no new concerns or complaints at this time. WC 4.8, hemoglobin 10.2, platelets 15.7, sodium 140, potassium 5.3, chloride 105, BUN is 32 creatinine 1.81, glucose 200. Review of Systems CONSTITUTIONAL: Well-developed no acute respiratory distress. EYES: No icterus sclerae, no conjunctivitis. EARS, NOSE, MOUTH, THROAT, and FACE: No sore throat, lymphadenopathy, carotid bruits or deformity. RESPIRATORY: Mild shortness of breath no wheezes CARDIOVASCULAR: Positive chest wall pain, positive palpitation and PND GASTROINTESTINAL: No Abd pain, Nausea or vomiting, no Diarrhea or constipation, No GI Bleed, no distention or masses. GENITOURINARY: Negative for Hematuria or UTI, no kidney stones. INTEGUMENT/BREAST: Negative for any muscular injury with mild osteoarthritis.. HEMATOLOGIC/LYMPHATIC: Negative for bleed or purpura. MUSCULOSKELTAL: Negative for Myalgia or arthralgia. NEURLOGICAL: No LOC, Sz or syncope, blurred vision dizziness or abnormality.. BEHAVIORAL/PSYCH: Negative. ENDOCRINE: Negative. Objective - Vital Signs Vital signs: Vital Signs Temp 98.2 F 12/27/18 08:00 Pulse 120 H 12/27/18 08:12 Resp 18 12/27/18 08:00 BP 124/82 12/27/18 08:00 Pulse Ox 99 12/27/18 08:00 Intake & Output 12/26/18 12/27/18 12/27/18 18:59 06:59 18:59 Intake Total 400 500.526 Output Total 400 700 Balance 0 -199.474 Weight 119.748 kg 121.2 kg Intake: Intake, IV Titration 180 140.526 Amount Heparin Sod,Pork in 0.45% 20 140.526 NaCl 25,000 unit In 0.45 % NaCl 1 250ml.bag @ 8.35 UNITS/KG/HR 9.99 mls/hr IV .Q24H [facility] Rx#: [id number] Sodium Chloride 0.9% 1, 160 000 ml @ 80 mls/hr IV . [id number] [facility] Rx#:[id number] Oral 220 360 Output: Urine 400 700 - Exam General Appearance: Alert, cooperative, no distress, appears stated age. Neck HEENT: Supple, no lymphadenopathy, no thyroid enlargement, no carotid bruits. Lungs: Decreased breath sound bilaterally specially in the left side with fine rhonchi no wheezes. Chest Wall: Decrease expansion with deep inspiration no tenderness and no deformity was found on exam, no costochondral pain or discomfort. Incision in the mid sternum area looks good with no sign of infection or induration or redness. Heart: IRRegular rate and rhythm, S1, S2 normal, positive S3, positive aortic valve click no murmur, rub or gallop. Back: Symmetric, no curvature, ROM normal, no CVA tenderness. Abdomen: Soft, non-tender, bowel sounds active all four quadrants, no masses, no organomegaly. Extremities: Trace edema decreased pulse, positive mild osteoarthritis. Pulses: 2+ and symmetric. Skin: Skin color, texture, tugor normal, no rashes or lesions. Neurologic: Alert oriented x3 cranial nerves II through XII intact, no motor deficit, no abnormal balance or gait. - Labs CBC & Chem 7: 12/27/18 06:35 12/27/18 06:35 Labs: Abnormal Lab Results - Last 24 Hours (Table) 12/26/18 12/26/18 12/26/18 Range/Units 16:28 16:28 16:35 RBC 3.48 L (4.30-5.90) m/uL Hgb 10.6 L (13.0-17.5) gm/dL Hct 33.2 L (39.0-53.0) % RDW 16.0 H (11.5-15.5) % APTT (22.0-30.0) sec Potassium (3.5-5.1) mmol/L BUN 37 H (9-20) mg/dL Creatinine 2.09 H (0.66-1.25) mg/dL Glucose 165 H (74-99) mg/dL POC Glucose (mg/dL) 177 H (75-99) mg/dL Total Protein (6.3-8.2) g/dL 12/27/18 12/27/18 12/27/18 Range/Units 00:26 00:33 06:35 RBC 3.32 L (4.30-5.90) m/uL Hgb 10.2 L (13.0-17.5) gm/dL Hct 32.2 L (39.0-53.0) % RDW 15.7 H (11.5-15.5) % APTT 57.1 H (22.0-30.0) sec Potassium (3.5-5.1) mmol/L BUN (9-20) mg/dL Creatinine (0.66-1.25) mg/dL Glucose (74-99) mg/dL POC Glucose (mg/dL) 225 H (75-99) mg/dL Total Protein (6.3-8.2) g/dL 12/27/18 12/27/18 12/27/18 Range/Units 06:35 06:35 06:49 RBC (4.30-5.90) m/uL Hgb (13.0-17.5) gm/dL Hct (39.0-53.0) % RDW (11.5-15.5) % APTT 40.0 H (22.0-30.0) sec Potassium 5.3 H (3.5-5.1) mmol/L BUN 32 H (9-20) mg/dL Creatinine 1.81 H (0.66-1.25) mg/dL Glucose 200 H (74-99) mg/dL POC Glucose (mg/dL) 191 H (75-99) mg/dL Total Protein 6.0 L (6.3-8.2) g/dL 12/27/18 Range/Units 11:12 RBC (4.30-5.90) m/uL Hgb (13.0-17.5) gm/dL Hct (39.0-53.0) % RDW (11.5-15.5) % APTT (22.0-30.0) sec Potassium (3.5-5.1) mmol/L BUN (9-20) mg/dL Creatinine (0.66-1.25) mg/dL Glucose (74-99) mg/dL POC Glucose (mg/dL) 199 H (75-99) mg/dL Total Protein (6.3-8.2) g/dL Assessment and Plan Plan: 1 A. fib with RVR: Patient was admitted to the hospital with start Cardizem drip 5 mg per hour, continue on amiodarone, continue heparin drip, continue metoprolol. as well we'll consult cardiology and cardiothoracic surgery. 2 Acute kidney injury with most likely ATN with acute kidney failure decrease GFR significantly, we'll continue gentle hydration, repeat BUN/creatinine 24 hours and try to stop any nephrotoxic agent, also consult nephrology. 3 post aortic valve placement: Successful surgery so far with no major complication. Continue incentive spirometer 4 post one-vessel CABG was reverse saphenous to the RCI stable so far. 5 type 2 diabetes: Has been on Humalog and long acting insulin resume both continue Accu-Chek with sliding scales coverage. 6 Hypertension: Blood pressure is well-controlled currently on lisinopril and metoprolol. 7 Hyperlipidemia: Continue patient on atorvastatin 40 mg daily. 8 Mild depression: Continue Cipro Lipram 20 mg daily. 9 mild COPD: Continue patient on albuterol/ipratropium nebulizer continue O2 try to keep pulse ox above 90 percentile. 10 GI prophylaxis/GERD: Continue patient on pantoprazole 40 mg daily. 11 DVT prophylaxis: Patient will be started on heparin drip for now and long term care pharmacist anticoagulation will be needed. CODE STATUS: Full code. Admit patient to inpatient status for more than 2 nights. Impression and plan of care have been directed as dictated by the signing physician. Lynn Starkey nurse practitioner acting as scribe for signing physician.
[2018-12-27 11:43] LABS: Glucose,Whole Blood 192 mg/dL (75-99)
[2018-12-27] MEDS: SODIUM CHLORIDE 0.9% 1,000 ML IV SCH ×4 (11:54→21:50)
--- NOTE | 2018-12-27 12:36 | P.GSCN ---
History of Present Illness Consult date: 12/27/18 Reason for Consult: Recent aortic valve replacement, coronary artery bypass grafting surgery. Admission for atrial fibrillation with rapid ventricular response. Requesting physician: Сергей Capps History of present illness: This is a 68-year-old gentleman who is followed by Dr. Jonathan Morataya on an outpatient basis. He has a past medical history significant for severe aortic stenosis, coronary artery disease with recent elective aortic valve replacement and coronary artery bypass grafting surgery 1, a reverse greater saphenous vein graft to the right coronary artery on 12/02/[address] Alex Irby, hypertension, hyperlipidemia, family history of coronary artery disease, diabetes mellitus with peripheral neuropathy, history of tobacco dependence, morbid obesity, depression, history of shingles, history of basal cell carcinoma , osteoarthritis, and postoperative paroxysmal atrial fibrillation. Post aortic valve replacement and coronary artery bypass grafting surgery on postoperative day #7 the patient was discharged to [facility] for further rehabilitation needs. On 12/26/2018 Dr. Washington from internal medicine was rounding on the patient at [facility] and found the patient to be in atrial fibrillation with rapid ventricular pulse rate running around 150 bpm. The patient also complained of shortness of breath and some lightheadedness when sitting up on the edge of the bed or standing. Patient denies any complaints of fever, chills, nausea, vomiting, constipation, diarrhea or near syncope. Due to the patient's atrial fibrillation with accelerated heart rate and hypotension he was subsequently transferred to the emergency department here at [facility]. In the emergency department a 12-lead EKG was completed which showed the patient to be in atrial flutter with right bundle branch block and a heart rate of 123 BPM. Subsequently due to the patient's symptoms, hypotension and lightheadedness he was admitted for further evaluation and treatment. Due to the patient's recent aortic valve replacement and coronary artery bypass grafting surgery Dr. Irby from cardiothoracic surgery was consulted. Review of Systems A 14 point review of system was completed and was negative except as mentioned in the HPI. Past Medical History Past Medical History: Atrial Fibrillation, Coronary Artery Disease (CAD), Cancer (Skin cancer), Chest Pain / Angina, COPD (Preoperative FEV1 56 percent of predicted), Diabetes Mellitus, Hyperlipidemia, Hypertension, Osteoarthritis ( OA), Skin Disorder (History of shingles), Syncope Additional Past Medical History / Comment(s): SOB, pain mid back, HX OF HERPES, DIABETIC NEUROPATHY. 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 History of Any Multi-Drug Resistant Organisms: None Reported Past Surgical History: Cardiac Valve Replacement, Coronary Bypass/CABG, Heart Catheterization, Joint Replacement, Orthopedic Surgery Additional Past Surgical History / Comment(s): RIGHT HIP REPLACED IN 2004, DEVELOPED INFECTION, AND REDONE IN AUG, 2013. 07-25-15 .LT HIP REPLACEMENT. ADMITTED WITH INC CELLULITIS LT HIP, one-vessel coronary artery bypass saphenous to the RCA and aortic valve replacement using bioprosthetic valve Past Anesthesia/Blood Transfusion Reactions: No Reported Reaction Additional Past Anesthesia/Blood Transfusion Reaction / Comm: Pt has received blood transfusion without reaction. Past Psychological History: Depression Additional Psychological History / Comment(s): and lives with family home with . Retired. Stopped smoking several years ago with no history of alcohol use. experience. No international travel. No animals in the home. Smoking Status: Former smoker Past Alcohol Use History: Rare Additional Past Alcohol Use History / Comment(s): No cpap.Lives at home with , retired. Past Drug Use History: None Reported - Past Family History Father Family Medical History: Diabetes Mellitus, Hypertension, Memory Impairment Mother Family Medical History: CVA/TIA Brother(s) Family Medical History: Diabetes Mellitus, Hyperlipidemia, Hypertension Son(s) Family Medical History: No Reported History Medications and Allergies Home Medications Medication Instructions Recorded Confirmed Type valACYclovir HCL [Valtrex] 500 mg PO DAILY 07/18/15 12/26/18 History Citalopram Hydrobromide [CeleXA] 20 mg PO DAILY 10/02/17 12/26/18 History Cholecalciferol [Vitamin D3] 1,000 unit PO DAILY 11/12/18 12/26/18 History Furosemide [Lasix] 40 mg PO BID 11/12/18 12/26/18 History Pregabalin [Lyrica] 100 mg PO BID 11/12/18 12/26/18 History Acetaminophen Tab [Tylenol] 325 mg PO Q6HR PRN tab 12/09/18 12/26/18 Rx Acetaminophen Tab [Tylenol] 650 mg PO Q6HR PRN tab 12/09/18 12/26/18 Rx Aspirin 325 mg PO DAILY tab 12/09/18 12/26/18 Rx Atorvastatin [Lipitor] 40 mg PO DAILY tab 12/09/18 12/26/18 Rx Clopidogrel [Plavix] 75 mg PO DAILY tab 12/09/18 12/26/18 Rx Heparin Sodium,Porcine [Heparin 5,000 unit SQ Q8HR vial 12/09/18 12/26/18 Rx Sodium] Ipratropium-Albuterol Nebulize 3 ml INHALATION RT-QID ampul.neb 12/09/18 Rx [Duoneb 0.5 mg-3 mg/3 ml Soln] Lisinopril [Zestril] 10 mg PO DAILY tab 12/09/18 12/26/18 Rx Metoprolol Tartrate [Lopressor] 50 mg PO BID tab 12/09/18 12/26/18 Rx Amiodarone [Cordarone] 200 mg PO DAILY 12/26/18 12/26/18 History Insulin Glargine,Hum.rec.anlog 20 unit SQ QAM 12/26/18 12/26/18 History [Basaglar Kwikpen U-100] Insulin Glargine,Hum.rec.anlog 40 unit SQ HS 12/26/18 12/26/18 History [Basaglar Kwikpen U-100] Insulin Lispro [humaLOG Kwikpen] 15 unit SQ TID-W/MEALS 12/26/18 12/26/18 History Insulin Lispro [humaLOG Kwikpen] See Protocol SQ TID 12/26/18 12/26/18 History Pantoprazole [Protonix] 40 mg PO QAM 12/26/18 12/26/18 History Sennosides-Docusate Sodium 2 tab PO HS PRN 12/26/18 12/26/18 History [Senokot-S] Allergies Allergy/AdvReac Type Severity Reaction Status Date / Time Penicillins Allergy Rash/Hives Verified 12/26/18 17:05 Surgical - Exam Vital Signs Temp Pulse Resp BP Pulse Ox 97.7 F 121 H 16 109/56 98 12/26/18 16:09 12/26/18 16:09 12/26/18 16:09 12/26/18 16:09 12/26/18 16:09 - General well developed, well nourished, no distress, no pain, obese - Eyes PERRL, normal ocular movement - ENT normal pinna, normal nares, normal mucosa, no hearing loss, no congestion - Neck Neck is supple, no lymphadenopathy. no masses, no bruits, trachea midline, no venous distension - Respiratory Lung sounds are essentially clear throughout, diminished to his left lower lobe. Respirations are symmetrical and nonlabored. Oxygen saturation are 100% on room air. - Cardiovascular Regular rhythm with tachycardic rate, S1 and S2 present, negative for S3, gallop or murmur. Remote telemetry showing atrial flutter heart rate 122. No edema present. Sternum is stable. - Abdomen Abdomen is soft, nontender and nondistended. Active bowel sounds all 4 abdominal quadrants. Bowel movement today. No guarding or rigidity. No organomegaly. Obese. - Genitourinary Voiding clear yellow urine. - Integumentary Skin is warm and dry. No clubbing or cyanosis present. Midline sternal incision is clean, dry and approximated. No drainage or redness is present. Right lower extremity EVH sites clean, dry and approximated. No drainage or redness present. no rash, no growths, no abnormal pigmentation - Neurologic normal coordination, normal sensation - Musculoskeletal normal gait, normal posture - Psychiatric oriented to time, oriented to person, oriented to place, speech is normal, memory intact Results - Labs 12/27/18 06:35 12/27/18 06:35 Abnormal Lab Results - Last 24 Hours (Table) 12/26/18 12/26/18 12/26/18 Range/Units 16:28 16:28 16:35 RBC 3.48 L (4.30-5.90) m/uL Hgb 10.6 L (13.0-17.5) gm/dL Hct 33.2 L (39.0-53.0) % RDW 16.0 H (11.5-15.5) % APTT (22.0-30.0) sec Potassium (3.5-5.1) mmol/L BUN 37 H (9-20) mg/dL Creatinine 2.09 H (0.66-1.25) mg/dL Glucose 165 H (74-99) mg/dL POC Glucose (mg/dL) 177 H (75-99) mg/dL Total Protein (6.3-8.2) g/dL 12/27/18 12/27/18 12/27/18 Range/Units 00:26 00:33 06:35 RBC 3.32 L (4.30-5.90) m/uL Hgb 10.2 L (13.0-17.5) gm/dL Hct 32.2 L (39.0-53.0) % RDW 15.7 H (11.5-15.5) % APTT 57.1 H (22.0-30.0) sec Potassium (3.5-5.1) mmol/L BUN (9-20) mg/dL Creatinine (0.66-1.25) mg/dL Glucose (74-99) mg/dL POC Glucose (mg/dL) 225 H (75-99) mg/dL Total Protein (6.3-8.2) g/dL 12/27/18 12/27/18 12/27/18 Range/Units 06:35 06:35 06:49 RBC (4.30-5.90) m/uL Hgb (13.0-17.5) gm/dL Hct (39.0-53.0) % RDW (11.5-15.5) % APTT 40.0 H (22.0-30.0) sec Potassium 5.3 H (3.5-5.1) mmol/L BUN 32 H (9-20) mg/dL Creatinine 1.81 H (0.66-1.25) mg/dL Glucose 200 H (74-99) mg/dL POC Glucose (mg/dL) 191 H (75-99) mg/dL Total Protein 6.0 L (6.3-8.2) g/dL Diabetes panel 12/26/18 12/27/18 Range/Units 16:28 06:35 Sodium 137 140 (137-145) mmol/L Potassium 4.9 5.3 H (3.5-5.1) mmol/L Chloride 102 105 (98-107) mmol/L Carbon Dioxide 23 28 (22-30) mmol/L BUN 37 H 32 H (9-20) mg/dL Creatinine 2.09 H 1.81 H (0.66-1.25) mg/dL Glucose 165 H 200 H (74-99) mg/dL Calcium 9.0 9.0 (8.4-10.2) mg/dL AST 32 34 (17-59) U/L ALT 35 40 (21-72) U/L Alkaline Phosphatase 117 112 (38-126) U/L Total Protein 6.3 6.0 L (6.3-8.2) g/dL Albumin 3.8 3.5 (3.5-5.0) g/dL Calcium panel 12/26/18 12/27/18 Range/Units 16:28 06:35 Calcium 9.0 9.0 (8.4-10.2) mg/dL Albumin 3.8 3.5 (3.5-5.0) g/dL Pituitary panel 12/26/18 12/27/18 Range/Units 16:28 06:35 Sodium 137 140 (137-145) mmol/L Potassium 4.9 5.3 H (3.5-5.1) mmol/L Chloride 102 105 (98-107) mmol/L Carbon Dioxide 23 28 (22-30) mmol/L BUN 37 H 32 H (9-20) mg/dL Creatinine 2.09 H 1.81 H (0.66-1.25) mg/dL Glucose 165 H 200 H (74-99) mg/dL Calcium 9.0 9.0 (8.4-10.2) mg/dL Adrenal panel 12/26/18 12/27/18 Range/Units 16:28 06:35 Sodium 137 140 (137-145) mmol/L Potassium 4.9 5.3 H (3.5-5.1) mmol/L Chloride 102 105 (98-107) mmol/L Carbon Dioxide 23 28 (22-30) mmol/L BUN 37 H 32 H (9-20) mg/dL Creatinine 2.09 H 1.81 H (0.66-1.25) mg/dL Glucose 165 H 200 H (74-99) mg/dL Calcium 9.0 9.0 (8.4-10.2) mg/dL Total Bilirubin 1.0 0.8 (0.2-1.3) mg/dL AST 32 34 (17-59) U/L ALT 35 40 (21-72) U/L Alkaline Phosphatase 117 112 (38-126) U/L Total Protein 6.3 6.0 L (6.3-8.2) g/dL Albumin 3.8 3.5 (3.5-5.0) g/dL - Imaging Chest x-ray: report reviewed, image reviewed Assessment and Plan (1) Atrial flutter by electrocardiogram Current Visit: Yes Status: Acute Code(s): I48.92 - UNSPECIFIED ATRIAL FLUTTER SNOMED Code(s): 288181184 (2) Acute kidney injury Current Visit: Yes Status: Acute Code(s): N17.9 - ACUTE KIDNEY FAILURE, UNSPECIFIED SNOMED Code(s): 18305020 (3) H/O aortic valve replacement Current Visit: Yes Status: Acute Code(s): Z95.2 - PRESENCE OF PROSTHETIC HEART VALVE SNOMED Code(s): 4521623072835 (4) History of coronary artery bypass graft x 1 Current Visit: Yes Status: Acute Code(s): Z95.1 - PRESENCE OF AORTOCORONARY BYPASS GRAFT SNOMED Code(s): 799791551 (5) Aortic stenosis Current Visit: No Status: Chronic Code(s): I35.0 - NONRHEUMATIC AORTIC ( VALVE) STENOSIS SNOMED Code(s): 08673764 (6) History of infection of total joint prosthesis of knee Current Visit: No Status: Acute Code(s): Z87.39 - PERSONAL HISTORY OF DISEASES OF THE MS SYS AND CONN TISS SNOMED Code(s): 837177740 (7) COPD (chronic obstructive pulmonary disease) Current Visit: No Status: Chronic Code(s): J44.9 - CHRONIC OBSTRUCTIVE PULMONARY DISEASE, UNSPECIFIED SNOMED Code(s): 77497216 (8) Coronary artery disease Current Visit: No Status: Chronic Code(s): I25.10 - ATHSCL HEART DISEASE OF [place] CORONARY ARTERY W/O ANG PCTRS SNOMED Code(s): 32394282 (9) Diabetes mellitus Current Visit: No Status: Chronic Code(s): E11.9 - TYPE 2 DIABETES MELLITUS WITHOUT COMPLICATIONS SNOMED Code(s): 74759415 (10) Family history of coronary artery disease Current Visit: No Status: Chronic Code(s): Z82.49 - FAMILY HX OF ISCHEM HEART DIS AND OTH DIS OF THE CIRC SYS SNOMED Code(s): 902836464 (11) Hyperlipidemia Current Visit: No Status: Chronic Code(s): E78.5 - HYPERLIPIDEMIA, UNSPECIFIED SNOMED Code(s): 30342762 (12) Hypertension Current Visit: No Status: Chronic Code(s): I10 - ESSENTIAL (PRIMARY) HYPERTENSION SNOMED Code(s): 68276662 (13) Obesity (BMI 30-39.9) Current Visit: No Status: Chronic Code(s): E66.9 - OBESITY, UNSPECIFIED SNOMED Code(s): 485516503 (14) Osteoarthritis Current Visit: No Status: Chronic Code(s): M19.90 - UNSPECIFIED OSTEOARTHRITIS, UNSPECIFIED SITE SNOMED Code(s): 749272682 (15) Tobacco dependence in remission Current Visit: No Status: Resolved Code(s): F17.201 - NICOTINE DEPENDENCE, UNSPECIFIED, IN REMISSION SNOMED Code(s): 262222867 (16) Depression Current Visit: Yes Status: Acute Code(s): F32.9 - MAJOR DEPRESSIVE DISORDER , SINGLE EPISODE, UNSPECIFIED SNOMED Code(s): 78648913 (17) DVT prophylaxis Current Visit: Yes Status: Acute Code(s): LYX8528 - SNOMED Code(s): 977693012 Plan: The patient was seen and examined. His chart and diagnostics were reviewed. The patient was seen and examined by Dr. Deirdre Vincent. Surgical sites are clean and dry without redness or drainage. Patient is afebrile. Currently the patient is in atrial flutter with heart rate of 122. Continue heparin drip, the patient will need a transesophageal echocardiogram and synchronized cardioversion for his atrial flutter.. Continue aspirin, beta paul, DARWIN inhibitor and statin. The patient was given a starting dose of 150 mg bolus of amiodarone. Once the bolus was initiated and the patient became bradycardic and unresponsive. The amiodarone bolus was stopped and the patient regained consciousness. Amiodarone was discontinued. Cardiac rhythm management per cardiology. Blood sugar management per internal medicine recommendations. Avoid nephrotoxic agents. Continue GI and DVT prophylaxis. SCDs to bilateral lower extremities ordered. Continue use of his incentive spirometry every hour while awake. Continue heart hugger. Thank you Dr. Capps for this consult and we look forward to working with you in the care of your patient. Time with Patient: Greater than 30
[2018-12-27] MEDS: APIXABAN 5 MG TAB PO SCH ×2 (13:40→21:46)
--- NOTE | 2018-12-27 13:44 | ECHOF ---
Referral Reason:sob with exertion, recent valve MEASUREMENTS -------- HEIGHT: 182.9 cm WEIGHT: 122.9 kg BP: RVIDd: 2.5 cm (< 3.3) IVSd: 1.6 cm (0.6 - 1.1) LVIDd: 4.5 cm (3.9 - 5.3) LVPWd: 1.8 cm (0.6 - 1.1) IVSs: 1.7 cm LVIDs: 2.9 cm LVPWs: 1.7 cm LA Diam: 1.9 cm (2.7 - 3.8) Ao Diam: 2.6 cm (2.0 - 3.7) LA Diam: 4.1 cm (2.7 - 3.8) MV EXCURSION: 19.913 mm (> 18.000) MV EF SLOPE: 110 mm/s (70 - 150) EPSS: 0.5 cm MV E Elbert: 1.01 m/s MV DecT: 119 ms MV A Elbert: 0.03 m/s MV E/A Ratio: 32.44 AV maxP.77 mmHg AV meanP.14 mmHg FINDINGS -------- The rhythm appears to be atrial flutter. Morbid Obesity This was a techncally difficult study with suboptimal views, , Lumason utilized for enhancement of images. The left ventricular size is normal. There is moderate concentric left ventricular hypertrophy. O verall left ventricular systolic function is low-normal with, an EF between 50 - 55 %. Septal wall motion is delayed and consistent with prior cardiac surgery. The right ventricle is normal in size. The left atrial size is normal. The right atrial size is normal. 5.0mg OF Lumason UTLIZED: 2 OR MORE WALL SEGMENTS NOT VISUALIZED. The aortic valve was not well visualized. Peak/mean gradient across the Aortic Valve is 11.77mmHg / 8.14mmHg. Normally functioning bioprosthetic valve. Mild mitral annular calcification present. Mild mitral regurgitation is present. Mild tricuspid regurgitation present. Unable to estimate RVSP due to inadequate TR jet spectral dop pler profile. The pulmonic valve was not well visualized. The aortic root size is normal. There is a small, generalized pericardial effusion present. CONCLUSIONS -------- 1. Morbid Obesity 2. This was a techncally difficult study with suboptimal views, , Lumason utilized for enhancement of images. 3. The left ventricular size is normal. 4. There is moderate concentric left ventricular hypertrophy. 5. Overall left ventricular systolic function is low-normal with, an EF between 50 - 55 %. 6. Septal wall motion is delayed and consistent with prior cardiac surgery. 7. The right ventricle is normal in size. 8. The left atrial size is normal. 9. The right atrial size is normal. 10. 5.0mg OF Lumason UTLIZED: 2 OR MORE WALL SEGMENTS NOT VISUALIZED. 11. The aortic valve was not well visualized. 12. Peak/mean gradient across the Aortic Valve is 11.77mmHg / 8.14mmHg. 13. Normally functioning bioprosthetic valve. 14. Mild mitral annular calcification present. 15. Mild mitral regurgitation is present. 16. Mild tricuspid regurgitation present. 17. Unable to estimate RVSP due to inadequate TR jet spectral doppler profile. 18. The pulmonic valve was not well visualized. 19. The aortic root size is normal. 20. There is a small, generalized pericardial effusion present. ROTARY RIG ENGINE OPERATOR: Jonna Dick RDCS
--- NOTE | 2018-12-27 14:40 | P.CRDCN ---
History of Present Illness History of present illness: This is a pleasant 68-year-old male past medical history significant for recently undergoing single vessel bypass grafting and aortic valve replacement with an SVG to the RCA on December 02, hypertension, dyslipidemia, diabetes mellitus, peripheral neuropathy and former nicotine dependence. He follows in the office with Dr. Brennan. [facility] secondary to increased fatigue, dizziness with position changes and was noted to be in atrial fibrillation with rapid ventricular response. He is seen and examined initially resting comfortably in bed laying flat in no acute distress. He denies symptoms of chest discomfort, shortness of breath or dizziness. He states he can feel his heart racing fast although it is very tolerable. Upon arrival he was also found to be in acute kidney injury. Nephrology is following the patient. He was started on Cardizem and heparin infusions. Echocardiogram obtained reveals preserved left ventricular systolic function with ejection fraction 50-55%, septal wall motion delay consistent with prior cardiac surgery, normally functioning bioprosthetic valve with a mean gradient across the valve of 8 mmHg, mild MR and mild TR noted. EKG reveals 2:1 atrial flutter rate 123 with incomplete right bundle branch block and inferior Q-waves. Chest xray reveals left lower lobe pulmonary infiltrate slightly improved. Laboratory data reviewed, WBC 4.8, hgb 10.2, plt 161, sodium 140, potassium 5.3 , creatinine 1.81, magnesium 1.9. Current cardiac medications include aspirin 325 mg daily, atorvastatin 40 mg daily, Plavix 75 mg daily, lisinopril 10 mg daily, amiodarone 200 mg daily, Lasix 40 mg twice a day, Lopressor 50 mg twice a day. At the time of my exam: CONSTITUTIONAL: Denies fever. Denies chills. EYES: Denies blurred vision. Denies vision changes. Denies eye pain. EARS, NOSE, MOUTH & THROAT: Denies headache. Denies sore throat. Denies ear pain. CARDIOVASCULAR: Denies chest pain. Denies shortness of breath. Denies orthopnea. Denies PND. Denies palpitations. RESPIRATORY: Denies cough. GASTROINTESTINAL: Denies abdominal pain. Denies diarrhea. Denies constipation. Denies nausea. Denies vomiting. MUSCULOSKELETAL: Denies myalgias. INTEGUMENTARY: Denies pruitis. Denies rash. NEUROLOGIC: Denies numbness. Denies tingling. Denies weakness. PSYCHIATRIC: Denies anxiety. Denies depression. ENDOCRINE: Denies fatigue. Denies weight change. Denies polydipsia. Denies polyurina. GENITOURINARY: Denies burning, hematuria or urgency with micturation. HEMATOLOGIC: Denies history of anemia. Denies bleeding. Blood pressure 101/62 heart rate 124 afebrile maintaining oxygen saturation on room air GENERAL: This is a 68-year-old male in no apparent distress at the time of my examination. HEENT: Head is atraumatic, normocephalic. Pupils are equal, round. Sclerae anicteric. Conjunctivae are clear. Mucous membranes of the mouth are moist. Neck is supple. There is no jugular venous distention. No carotid bruit is heard. LUNGS: Clear to auscultation no wheezes, rales or rhonchi. No chest wall tenderness is noted on palpation or with deep breathing. HEART: Irregular rate and rhythm with systolic ejection murmur at the base, no rubs or gallops. S1 and S2 heard. Heart [address]. Sternal scar noted clean dry and intact. ABDOMEN: Soft, nontender. Bowel sounds are heard. No organomegaly noted. EXTREMITIES: No evidence of peripheral edema and no calf tenderness noted. VASCULAR: Radial and dorsalis pedis pulses palpated, no evidence of clubbing. NEUROLOGIC: Patient is awake, alert and oriented x3. ASSESSMENT Atrial flutter Acute kidney injury Status post single-vessel bypass grafting and aortic valve replacement Hypertension Dyslipidemia Diabetes mellitus PLAN Initially amiodarone bolus and drip were ordered. Approximately 3-4 minutes into the infusion of the bolus the patient became bradycardic and unresponsive. Infusion was immediately discontinued and the patient was transferred to the intensive care unit. He will require CARMELA and cardioversion. Initiate on eliquis 5 mg BID for thromboembolic protection. Further recommendations to follow based on clinical course. Thank you kindly for this consultation. Nurse Practitioner note has been reviewed, I agree with a documented findings and plan of care. Patient was seen and examined. Past Medical History Past Medical History: Atrial Fibrillation, Coronary Artery Disease (CAD), Cancer (Skin cancer), Chest Pain / Angina, COPD (Preoperative FEV1 56 percent of predicted), Diabetes Mellitus, Hyperlipidemia, Hypertension, Osteoarthritis ( OA), Skin Disorder (History of shingles), Syncope Additional Past Medical History / Comment(s): SOB, pain mid back, HX OF HERPES, DIABETIC NEUROPATHY. 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 History of Any Multi-Drug Resistant Organisms: None Reported Past Surgical History: Cardiac Valve Replacement, Coronary Bypass/CABG, Heart Catheterization, Joint Replacement, Orthopedic Surgery Additional Past Surgical History / Comment(s): RIGHT HIP REPLACED IN 2004, DEVELOPED INFECTION, AND REDONE IN AUG, 2013. 07-25-15 .LT HIP REPLACEMENT. ADMITTED WITH INC CELLULITIS LT HIP, one-vessel coronary artery bypass saphenous to the RCA and aortic valve replacement using bioprosthetic valve Past Anesthesia/Blood Transfusion Reactions: No Reported Reaction Additional Past Anesthesia/Blood Transfusion Reaction / Comment(s): Pt has received blood transfusion without reaction. Past Psychological History: Depression Additional Psychological History / Comment(s): and lives with family home with . Retired. Stopped smoking several years ago with no history of alcohol use. experience. No international travel. No animals in the home. Smoking Status: Former smoker Past Alcohol Use History: Rare Additional Past Alcohol Use History / Comment(s): No cpap.Lives at home with , retired. Past Drug Use History: None Reported - Past Family History Father Family Medical History: Diabetes Mellitus, Hypertension, Memory Impairment Mother Family Medical History: CVA/TIA Brother(s) Family Medical History: Diabetes Mellitus, Hyperlipidemia, Hypertension Son(s) Family Medical History: No Reported History Medications and Allergies Home Medications Medication Instructions Recorded Confirmed Type valACYclovir HCL [Valtrex] 500 mg PO DAILY 07/18/15 12/26/18 History Citalopram Hydrobromide [CeleXA] 20 mg PO DAILY 10/02/17 12/26/18 History Cholecalciferol [Vitamin D3] 1,000 unit PO DAILY 11/12/18 12/26/18 History Furosemide [Lasix] 40 mg PO BID 11/12/18 12/26/18 History Pregabalin [Lyrica] 100 mg PO BID 11/12/18 12/26/18 History Acetaminophen Tab [Tylenol] 325 mg PO Q6HR PRN tab 12/09/18 12/26/18 Rx Acetaminophen Tab [Tylenol] 650 mg PO Q6HR PRN tab 12/09/18 12/26/18 Rx Aspirin 325 mg PO DAILY tab 12/09/18 12/26/18 Rx Atorvastatin [Lipitor] 40 mg PO DAILY tab 12/09/18 12/26/18 Rx Clopidogrel [Plavix] 75 mg PO DAILY tab 12/09/18 12/26/18 Rx Heparin Sodium,Porcine [Heparin 5,000 unit SQ Q8HR vial 12/09/18 12/26/18 Rx Sodium] Ipratropium-Albuterol Nebulize 3 ml INHALATION RT-QID ampul.neb 12/09/18 Rx [Duoneb 0.5 mg-3 mg/3 ml Soln] Lisinopril [Zestril] 10 mg PO DAILY tab 12/09/18 12/26/18 Rx Metoprolol Tartrate [Lopressor] 50 mg PO BID tab 12/09/18 12/26/18 Rx Amiodarone [Cordarone] 200 mg PO DAILY 12/26/18 12/26/18 History Insulin Glargine,Hum.rec.anlog 20 unit SQ QAM 12/26/18 12/26/18 History [Basaglar Kwikpen U-100] Insulin Glargine,Hum.rec.anlog 40 unit SQ HS 12/26/18 12/26/18 History [Basaglar Kwikpen U-100] Insulin Lispro [humaLOG Kwikpen] 15 unit SQ TID-W/MEALS 12/26/18 12/26/18 History Insulin Lispro [humaLOG Kwikpen] See Protocol SQ TID 12/26/18 12/26/18 History Pantoprazole [Protonix] 40 mg PO QAM 12/26/18 12/26/18 History Sennosides-Docusate Sodium 2 tab PO HS PRN 12/26/18 12/26/18 History [Senokot-S] Allergies Allergy/AdvReac Type Severity Reaction Status Date / Time Penicillins Allergy Rash/Hives Verified 12/26/18 17:05 Physical Exam Vitals: Vital Signs Temp Pulse Pulse Resp BP BP Pulse Ox 12/27/18 14:00 124 H 19 101/62 96 12/27/18 13:30 120 H 16 96 12/27/18 13:20 121 H 19 94/58 96 12/27/18 13:05 94/58 12/27/18 13:00 97/60 12/27/18 12:50 116/60 12/27/18 12:45 118 H 19 12/27/18 12:40 112/55 12/27/18 12:35 122 H 12/27/18 12:30 111/72 12/27/18 12:24 122 H 12/27/18 08:12 120 H 12/27/18 08:00 98.2 F 120 H 118 H 18 124/82 99 12/27/18 04:40 114 H 18 120/70 100 12/27/18 00:33 115 H 18 115/57 98 12/26/18 20:40 118 H 18 116/57 97 12/26/18 20:21 114 H 16 12/26/18 20:12 118 H 16 94 L 12/26/18 19:57 119 H 18 114/70 99 12/26/18 19:30 97.5 F L 118 H 18 127/48 99 12/26/18 18:30 116 H 18 117/61 100 12/26/18 17:16 122 H 18 114/52 98 12/26/18 16:09 97.7 F 121 H 16 109/56 98 Intake and Output 12/26/18 12/27/18 12/27/18 22:59 06:59 14:59 Intake Total 400 580.526 Output Total 400 700 Balance 400 -400 -119.474 Intake: IV 80 Sodium Chloride 0.9% 1, 80 000 ml @ 80 mls/hr IV . [id number] [facility] Rx#:[id number] Intake, IV Titration 180 140.526 Amount Heparin Sod,Pork in 0.45% 20 140.526 NaCl 25,000 unit In 0.45 % NaCl 1 250ml.bag @ 8.35 UNITS/KG/HR 9.99 mls/hr IV .Q24H [facility] Rx#: [id number] Sodium Chloride 0.9% 1, 160 000 ml @ 80 mls/hr IV . [id number] [facility] Rx#:[id number] Oral 220 360 Output: Urine 400 700 Other: Weight 119.748 kg 121.2 kg Results 12/27/18 06:35 12/27/18 06:35 Cardiac Enzymes 12/26/18 12/26/18 12/27/18 Range/Units 16:28 16:28 06:35 AST 32 34 (17-59) U/L Troponin I <0.012 (0.000-0.034) ng/mL Coagulation 12/26/18 12/27/18 12/27/18 Range/Units 16:28 00:33 06:35 PT 10.7 (9.0-12.0) sec APTT 57.1 H 40.0 H (22.0-30.0) sec CBC 12/26/18 12/27/18 Range/Units 16:28 06:35 WBC 7.0 4.8 (3.8-10.6) k/uL RBC 3.48 L 3.32 L (4.30-5.90) m/uL Hgb 10.6 L 10.2 L (13.0-17.5) gm/dL Hct 33.2 L 32.2 L (39.0-53.0) % Plt Count 224 161 (150-450) k/uL Comprehensive Metabolic Panel 12/26/18 12/27/18 Range/Units 16:28 06:35 Sodium 137 140 (137-145) mmol/L Potassium 4.9 5.3 H (3.5-5.1) mmol/L Chloride 102 105 (98-107) mmol/L Carbon Dioxide 23 28 (22-30) mmol/L BUN 37 H 32 H (9-20) mg/dL Creatinine 2.09 H 1.81 H (0.66-1.25) mg/dL Glucose 165 H 200 H (74-99) mg/dL Calcium 9.0 9.0 (8.4-10.2) mg/dL AST 32 34 (17-59) U/L ALT 35 40 (21-72) U/L Alkaline Phosphatase 117 112 (38-126) U/L Total Protein 6.3 6.0 L (6.3-8.2) g/dL Albumin 3.8 3.5 (3.5-5.0) g/dL Current Medications Generic Name Dose Route Start Last Admin Trade Name Freq PRN Reason Stop Dose Admin Acetaminophen 650 mg 12/26/18 18:47 Tylenol Tab PO Q6HR PRN Pain Scale 6 to 10 Acetaminophen 325 mg 12/26/18 19:35 Tylenol Tab PO Q6HR PRN Pain Scale 1 to 5 Albuterol/Ipratropium 3 ml 12/26/18 20:00 12/27/18 12:24 Duoneb 0.5 Mg-3 Mg/3 Ml Soln INHALATION 3 ml RT-QID [facility] Administration Apixaban 5 mg 12/27/18 09:45 12/27/18 13:40 Eliquis PO 5 mg BID [facility] Administration Aspirin 81 mg 12/28/18 09:00 Aspirin PO DAILY [facility] Atorvastatin Calcium 40 mg 12/27/18 09:00 12/27/18 08:19 Lipitor PO 40 mg DAILY [facility] Administration Cholecalciferol 1,000 unit 12/27/18 09:00 12/27/18 08:19 Vitamin D3 PO 1,000 unit DAILY [facility] Administration Citalopram Hydrobromide 20 mg 12/27/18 09:00 12/27/18 08:19 Celexa PO 20 mg DAILY [facility] Administration Clopidogrel Bisulfate 75 mg 12/27/18 09:00 12/27/18 08:19 Plavix PO 75 mg DAILY [facility] Administration Furosemide 40 mg 12/26/18 21:00 12/27/18 08:19 Lasix PO 40 mg 0900,1800 [facility] Administration Sodium Chloride 1,000 mls @ 80 mls/hr 12/26/18 19:00 12/27/18 11:54 Saline 0.9% IV Not Given .[id number] [facility] Sodium Chloride 1,000 mls @ 200 mls/hr 12/27/18 14:15 Saline 0.9% IV .Q5H [facility] Insulin Aspart 15 unit 12/27/18 07:30 12/27/18 07:43 Novolog SQ 15 unit TID-W/MEALS [facility] Administration Insulin Aspart 0 unit 12/27/18 17:30 Novolog SQ ACHS [facility] Protocol Insulin Detemir 20 unit 12/27/18 09:00 12/27/18 08:20 Levemir SQ 20 unit QAM [facility] Administration Insulin Detemir 40 unit 12/26/18 21:00 12/27/18 00:37 Levemir SQ 40 unit HS [facility] Administration Lisinopril 10 mg 12/27/18 09:00 12/27/18 08:21 Zestril PO 10 mg DAILY [facility] Administration Metoprolol Tartrate 75 mg 12/26/18 21:00 12/27/18 08:21 Lopressor PO 75 mg BID [facility] Administration Naloxone HCl 0.2 mg 12/26/18 18:46 Narcan IV Q2M PRN Opioid Reversal Pantoprazole Sodium 40 mg 12/27/18 09:00 12/27/18 08:22 Protonix PO 40 mg QAM [facility] Administration Pregabalin 100 mg 12/26/18 21:00 12/27/18 08:22 Lyrica PO 100 mg BID [facility] Administration Senna/Docusate Sodium 2 each 12/26/18 19:35 Senokot-S PO HS PRN Constipation Valacyclovir HCl 500 mg 12/27/18 09:00 12/27/18 08:22 Valtrex PO 500 mg DAILY [facility] Administration Intake and Output 12/26/18 12/27/18 12/27/18 22:59 06:59 14:59 Intake Total 400 580.526 Output Total 400 700 Balance 400 -400 -119.474 Intake: IV 80 Sodium Chloride 0.9% 1, 80 000 ml @ 80 mls/hr IV . [id number] [facility] Rx#:[id number] Intake, IV Titration 180 140.526 Amount Heparin Sod,Pork in 0.45% 20 140.526 NaCl 25,000 unit In 0.45 % NaCl 1 250ml.bag @ 8.35 UNITS/KG/HR 9.99 mls/hr IV .Q24H [facility] Rx#: [id number] Sodium Chloride 0.9% 1, 160 000 ml @ 80 mls/hr IV . [id number] [facility] Rx#:[id number] Oral 220 360 Output: Urine 400 700 Other: Weight 119.748 kg 121.2 kg 12/27/18 06:35 12/27/18 06:35
[2018-12-27 17:07] LABS: Glucose,Whole Blood 227 mg/dL (75-99)
[2018-12-27] MEDS ORDERED: AMIODARONE 300 MG in DEXTROSE 5% IN WATER 250 ML IV SCH ×2 (17:30)
[2018-12-27 20:57] LABS: Glucose,Whole Blood 190 mg/dL (75-99)
[2018-12-28] MEDS ORDERED: SODIUM CHLORIDE 0.9% 1,000 ML IV ONE (00:20)
[2018-12-28 05:40] LABS: Basophils % (A) 0 %; Eosinophils # (A) 0.2 k/uL (0-0.7); Eosinophils % (A) 2 %; HCT 29.6 % (39.0-53.0); HGB 9.6 gm/dL (13.0-17.5); Hypochromasia Marked; Lymphocytes # (A) 1.1 k/uL (1.0-4.8); Lymphocytes % (A) 13 %; MCH 31.1 pg (25.0-35.0); MCHC 32.6 g/dL (31.0-37.0); MCV 95.6 fL (80.0-100.0); Mean Platelet Volume 6.7; Monocytes # (A) 0.5 k/uL (0-1.0); Monocytes % (A) 6 %; Neutrophils # (A) 7.1 k/uL (1.3-7.7); Neutrophils % (A) 79 %; Platelet Count 153 k/uL (150-450); Poikilocytosis Moderate; RBC 3.09 m/uL (4.30-5.90); RDW 15.6 % (11.5-15.5)
[2018-12-28 05:51] LABS: Albumin 2.7 g/dL (3.5-5.0); Magnesium 1.8 mg/dL (1.6-2.3); Phosphorus 3.8 mg/dL (2.5-4.5); Total Bilirubin 1.2 mg/dL (0.2-1.3); Total Protein 4.9 g/dL (6.3-8.2)
[2018-12-28 06:11] LABS: Potassium 4.7 mmol/L (3.5-5.1)
[2018-12-28 06:57] LABS: Glucose,Whole Blood 102 mg/dL (75-99)
[2018-12-28] MEDS: IPRATROPIUM-ALBUTEROL 3 ML NEB INHALATION SCH ×4 (07:13→20:19)
[2018-12-28] MEDS: INSULIN ASPART (NovoLOG) 100 UNIT/ML VIAL SQ SCH ×7 (07:13→23:39)
[2018-12-28] MEDS ORDERED: Magnesium Replacement Protocol 1 EACH MISC MISCELLANE PRN (07:19)
--- NOTE | 2018-12-28 07:23 | XR ---
EXAMINATION TYPE: XR chest 1V DATE OF EXAM: 12/28/2018 COMPARISON: 12/26/2018 INDICATION: Assess lungs TECHNIQUE: Single frontal view of the chest is obtained. FINDINGS: The heart size is normal. The pulmonary vasculature is normal. There is a left lower lobe infiltrate. There is blunting left costophrenic angle. Correlate for small pleural effusion Sternotomy wires are from prior cardiac valve surgery. IMPRESSION: 1. Left lower lobe infiltrate and/or small left pleural effusion.
[2018-12-28] MEDS: IOPAMIDOL-300 CONTRAST 30 ML VIAL (ORAL USE) PO PRN ×2 (07:38→08:33)
[2018-12-28] MEDS: SODIUM CHLORIDE 0.9% 1,000 ML IV SCH ×5 (07:41→21:14)
--- NOTE | 2018-12-28 09:57 | P.CNPUL ---
History of Present Illness Consult date: 12/27/18 Chief complaint: A flutter/RVR/unresponsiveness History of present illness: This is a 68-year-old male patient with known history of coronary artery disease and the patient underwent a single-vessel bypass surgery and aortic valve replacement on 12/02/2018 in our institution. The patient is also known to have hypertension and hyperlipidemia and diabetes mellitus and peripheral neuropathy. Is a former smoker. I was involved in this patient's postoperative care. The patient did well. The patient was discharged to [facility] on on 12/09/2018. Note that the patient's aortic valve are present was done for severe aortic stenosis. He has some background COPD with an FEV1 of 56% of predicted. He is obese and his BMI is at 38.3. The patient did develop atrial fibrillation following his surgery. He did convert to normal sinus rhythm after he was given amiodarone. Upon discharge, he was given amiodarone 400 mg by mouth twice a day in addition to aspirin and metoprolol 50 mg by mouth twice a day. He was also given Lasix 40 mg by mouth daily. He was asked to continue Levemir insulin 40 units at bedtime and 20 units in the morning in addition to DuoNeb nebulized treatments on the clock. His regimen also includes a combination of aspirin and Plavix. He has also history of herpetic infection for which she is on Valtrex. The patient came in to the emergency department after he was found by his primary care physician to be in atrial fibrillation/flutter with rapid ventricular response. The patient was initially resting comfortably in his bed and he was not having any significant distress. He denies having any symptoms of chest pain or shortness of breath or dizziness. He stated that his heart was racing. In the emergency department, the patient was also found to be acute kidney injury. The creatinine at time of admission was 2.09 knowing that time of the chest creatinine was completely within normal limits. His current creatinine is at 1.8. The patient was initially admitted to selective unit where he was started on amiodarone bolus and while the bolus was infusing the patient went unresponsive. According to the rhythm strips, the patient had a positive around 5 seconds and he was briefly given CPR. He did wake up within a few seconds. The patient had a bowel movement following that and he also felt diaphoretic. He got moved to the intensive care unit. His current rhythm is a flutter with a rate of 117-120. He is on no amiodarone drip. He is taking metoprolol the dose of which was modified and the patient is currently taking 75 mg by mouth twice a day. He is also started on long-term anticoagulation with Eliquis. His sternum is stable clean and intact. He has not voided yet. He is receiving IV fluids in order of 80 mL an hour and he will be receiving IV fluid bolus as recommended by cardiology. Echocardiogram was done and the patient has a preserved LV function with an ejection fraction of 50-55% and there is no other valvular abnormalities. The aortic valve was not well visualized and the peak gradient across the valve was 11 mmHg and it is a normally functioning bioprosthetic valve. The right ventricular systolic pressure was not measured as there was no tricuspid regurgitation jet. Review of Systems CONSTITUTIONAL: Denies fever. Denies chills. EYES: Denies blurred vision. Denies vision changes. Denies eye pain. EARS, NOSE, MOUTH & THROAT: Denies headache. Denies sore throat. Denies ear pain. CARDIOVASCULAR: Denies chest pain. Denies shortness of breath. Denies orthopnea. Denies PND. Denies palpitations although the patient has been having atrial flutter with rapid ventricular response. GASTROINTESTINAL: Denies abdominal pain. Denies diarrhea. Denies constipation. Denies nausea. Denies vomiting. Note that the patient's been having some intermittent nausea. MUSCULOSKELETAL: Denies myalgias. INTEGUMENTARY: Denies pruitis. Denies rash. NEUROLOGIC: Denies numbness. Denies tingling. Denies weakness. PSYCHIATRIC: Denies anxiety. Denies depression. ENDOCRINE: Denies fatigue. Denies weight change. Denies polydipsia. Denies polyurina. GENITOURINARY: Denies burning, hematuria or urgency with micturation. HEMATOLOGIC: Denies history of anemia. Denies bleeding. Past Medical History Past Medical History: Atrial Fibrillation, Coronary Artery Disease (CAD), Cancer (Skin cancer), Chest Pain / Angina, COPD (Preoperative FEV1 56 percent of predicted), Diabetes Mellitus, Hyperlipidemia, Hypertension, Osteoarthritis ( OA), Skin Disorder (History of shingles), Syncope Additional Past Medical History / Comment(s): Severe aortic stenosis status post aortic valve replacement, coronary artery disease status post single- vessel bypass surgery, hypertension, hyperlipidemia, diabetes mellitus with symptoms of neuropathy and the patient is a preoperative hemoglobin A1c of 6.3, COPD with an FEV1 of 56% of predicted, obesity with a BMI of 38, shingles, depression, basal cell carcinoma of the skin that was diagnosed in 2015 2017 resected, osteoarthritis, history of right and left hip replacement with postoperative infections and subsequent antibiotic treatment with Dr. Ricci, anemia predominantly postop, postoperative atrial fibrillation following cardiac surgery History of Any Multi-Drug Resistant Organisms: None Reported Past Surgical History: Cardiac Valve Replacement, Coronary Bypass/CABG, Heart Catheterization, Joint Replacement, Orthopedic Surgery Additional Past Surgical History / Comment(s): RIGHT HIP REPLACED IN 2004, DEVELOPED INFECTION, AND REDONE IN AUG, 2013. 07-25-15 .LT HIP REPLACEMENT. ADMITTED WITH INC CELLULITIS LT HIP, one-vessel coronary artery bypass saphenous to the RCA and aortic valve replacement using bioprosthetic valve Past Anesthesia/Blood Transfusion Reactions: No Reported Reaction Additional Past Anesthesia/Blood Transfusion Reaction / Comment(s): Pt has received blood transfusion without reaction. Past Psychological History: Depression Additional Psychological History / Comment(s): and lives with family home with . Retired. Stopped smoking several years ago with no history of alcohol use. experience. No international travel. No animals in the home. Smoking Status: Former smoker Past Alcohol Use History: Rare Additional Past Alcohol Use History / Comment(s): No cpap.Lives at home with , retired. Past Drug Use History: None Reported - Past Family History Father Family Medical History: Diabetes Mellitus, Hypertension, Memory Impairment Mother Family Medical History: CVA/TIA Brother(s) Family Medical History: Diabetes Mellitus, Hyperlipidemia, Hypertension Son(s) Family Medical History: No Reported History Medications and Allergies Home Medications Medication Instructions Recorded Confirmed Type valACYclovir HCL [Valtrex] 500 mg PO DAILY 07/18/15 12/26/18 History Citalopram Hydrobromide [CeleXA] 20 mg PO DAILY 10/02/17 12/26/18 History Cholecalciferol [Vitamin D3] 1,000 unit PO DAILY 11/12/18 12/26/18 History Furosemide [Lasix] 40 mg PO BID 11/12/18 12/26/18 History Pregabalin [Lyrica] 100 mg PO BID 11/12/18 12/26/18 History Acetaminophen Tab [Tylenol] 325 mg PO Q6HR PRN tab 12/09/18 12/26/18 Rx Acetaminophen Tab [Tylenol] 650 mg PO Q6HR PRN tab 12/09/18 12/26/18 Rx Aspirin 325 mg PO DAILY tab 12/09/18 12/26/18 Rx Atorvastatin [Lipitor] 40 mg PO DAILY tab 12/09/18 12/26/18 Rx Clopidogrel [Plavix] 75 mg PO DAILY tab 12/09/18 12/26/18 Rx Heparin Sodium,Porcine [Heparin 5,000 unit SQ Q8HR vial 12/09/18 12/26/18 Rx Sodium] Ipratropium-Albuterol Nebulize 3 ml INHALATION RT-QID ampul.neb 12/09/18 Rx [Duoneb 0.5 mg-3 mg/3 ml Soln] Lisinopril [Zestril] 10 mg PO DAILY tab 12/09/18 12/26/18 Rx Metoprolol Tartrate [Lopressor] 50 mg PO BID tab 12/09/18 12/26/18 Rx Amiodarone [Cordarone] 200 mg PO DAILY 12/26/18 12/26/18 History Insulin Glargine,Hum.rec.anlog 20 unit SQ QAM 12/26/18 12/26/18 History [Basaglar Kwikpen U-100] Insulin Glargine,Hum.rec.anlog 40 unit SQ HS 12/26/18 12/26/18 History [Basaglar Kwikpen U-100] Insulin Lispro [humaLOG Kwikpen] 15 unit SQ TID-W/MEALS 12/26/18 12/26/18 History Insulin Lispro [humaLOG Kwikpen] See Protocol SQ TID 12/26/18 12/26/18 History Pantoprazole [Protonix] 40 mg PO QAM 12/26/18 12/26/18 History Sennosides-Docusate Sodium 2 tab PO HS PRN 12/26/18 12/26/18 History [Senokot-S] Allergies Allergy/AdvReac Type Severity Reaction Status Date / Time Penicillins Allergy Rash/Hives Verified 12/26/18 17:05 Physical Exam Vitals: Vital Signs Temp Pulse Pulse Resp BP BP Pulse Ox 12/27/18 15:00 118 H 17 84/53 96 12/27/18 14:30 121 H 15 94/51 98 12/27/18 14:00 124 H 19 101/62 96 12/27/18 13:30 120 H 16 96 12/27/18 13:20 121 H 19 94/58 96 12/27/18 13:05 94/58 12/27/18 13:00 97/60 12/27/18 12:50 116/60 12/27/18 12:45 118 H 19 12/27/18 12:40 112/55 12/27/18 12:35 122 H 12/27/18 12:30 111/72 12/27/18 12:24 122 H 12/27/18 08:12 120 H 12/27/18 08:00 98.2 F 120 H 118 H 18 124/82 99 12/27/18 04:40 114 H 18 120/70 100 12/27/18 00:33 115 H 18 115/57 98 12/26/18 20:40 118 H 18 116/57 97 12/26/18 20:21 114 H 16 12/26/18 20:12 118 H 16 94 L 12/26/18 19:57 119 H 18 114/70 99 12/26/18 19:30 97.5 F L 118 H 18 127/48 99 12/26/18 18:30 116 H 18 117/61 100 12/26/18 17:16 122 H 18 114/52 98 12/26/18 16:09 97.7 F 121 H 16 109/56 98 Intake and Output 12/27/18 12/27/18 12/27/18 06:59 14:59 22:59 Intake Total 580.526 200 Output Total 400 700 Balance -400 -119.474 200 Intake: IV 80 Sodium Chloride 0.9% 1, 80 000 ml @ 80 mls/hr IV . [id number] GAETANO Rx#:[id number] Intake, IV Titration 140.526 200 Amount Heparin Sod,Pork in 0.45% 140.526 NaCl 25,000 unit In 0.45 % NaCl 1 250ml.bag @ 8.35 UNITS/KG/HR 9.99 mls/hr IV .Q24H GAETANO Rx#: [id number] Sodium Chloride 0.9% 1, 200 000 ml @ 200 mls/hr IV . Q5H GAETANO Rx#:[id number] Oral 360 Output: Urine 400 700 Other: Weight 121.2 kg GENERAL: This is a 68-year-old male in no apparent distress at the time of my examination. HEENT: Head is atraumatic, normocephalic. Pupils are equal, round. Sclerae anicteric. Conjunctivae are clear. Mucous membranes of the mouth are moist. Neck is supple. There is no jugular venous distention. No carotid bruit is heard. LUNGS: Clear to auscultation no wheezes, rales or rhonchi. No chest wall tenderness is noted on palpation or with deep breathing. HEART: Irregular rate and rhythm with systolic ejection murmur at the base, no rubs or gallops. S1 and S2 heard. Heart [address]. Sternal scar noted clean dry and intact. ABDOMEN: Soft, nontender. Bowel sounds are heard. No organomegaly noted. EXTREMITIES: No evidence of peripheral edema and no calf tenderness noted. VASCULAR: Radial and dorsalis pedis pulses palpated, no evidence of clubbing. NEUROLOGIC: Patient is awake, alert and oriented x3. Results - Laboratory Findings CBC and BMP: 12/27/18 06:35 12/27/18 14:27 PT/INR, D-dimer PT 10.7 sec (9.0-12.0) 12/26/18 16:28 INR 1.0 (<1.2) 12/26/18 16:28 Abnormal lab findings: Abnormal Labs 12/26/18 12/26/18 12/26/18 16:28 16:28 16:35 RBC 3.48 L Hgb 10.6 L Hct 33.2 L RDW 16.0 H APTT Potassium BUN 37 H Creatinine 2.09 H Glucose 165 H POC Glucose (mg/dL) 177 H Total Protein 12/27/18 12/27/18 12/27/18 00:26 00:33 06:35 RBC 3.32 L Hgb 10.2 L Hct 32.2 L RDW 15.7 H APTT 57.1 H Potassium BUN Creatinine Glucose POC Glucose (mg/dL) 225 H Total Protein 12/27/18 12/27/18 12/27/18 06:35 06:35 06:49 RBC Hgb Hct RDW APTT 40.0 H Potassium 5.3 H BUN 32 H Creatinine 1.81 H Glucose 200 H POC Glucose (mg/dL) 191 H Total Protein 6.0 L 12/27/18 12/27/18 11:12 11:36 RBC Hgb Hct RDW APTT Potassium BUN Creatinine Glucose POC Glucose (mg/dL) 199 H 192 H Total Protein - Diagnostic Findings Chest x-ray: image reviewed Assessment and Plan Plan: Assessment 1 a flutter with rapid ventricular response with a brief bout of cardiac cause/ arrest from which the patient recovered and the patient is currently off amiodarone drip. The patient's rate is being controlled with metoprolol and is being considered for cardioversion. LV function is preserved and the aortic bioprosthetic valve is fully functional. 2 coronary artery disease with a recent single-vessel bypass surgery 3 obesity with a BMI of 38 4 diabetes mellitus type 2 with peripheral neuropathy 5 hypertension history of currently slightly hypotensive receiving IV fluids 6 acute kidney injury with a creatinine of 2.0, urine output as long the patient is being bolused IV fluids and a Leonard cath will be inserted 7 hyperlipidemia 8 COPD with a baseline FEV1 of 56% of predicted 9 history of depression 10 history of shingles currently on Valtrex for chronic suppression 11 history of right and left hip replacement with postoperative infections requiring antibiotics and the patient has been maintained on doxycycline outpatient basis 12 normocytic anemia Plan Continue IV fluids. The patient is currently on 80 mL as maintenance however he would receive boluses of 1 L over the next 4 hours. The patient will need a Leonard catheter in place. We'll monitor renal function. Agree on metoprolol and holding the amiodarone for now. Agree on long-term and coagulation with Eliquis. Echocardiogram was noted. He is being considered for cardioversion. Meanwhile, we'll proceed with rate control with beta blockers. Resume outpatient medications including his insulin, aspirin and Plavix. Surgical wound site is dry clean and intact. Echocardiogram was noted. We'll continue to follow make further recommendations. The patient be kept in ICU for now.
[2018-12-28] MEDS ORDERED: HEPARIN SODIUM,PORCINE 5,000 UNIT/ML 1 ML VIAL IV PRN (10:12)
[2018-12-28] MEDS: valACYclovir 500 MG TAB PO SCH (10:15)
[2018-12-28] MEDS: ASPIRIN 81 MG PO SCH (10:15)
[2018-12-28] MEDS: CLOPIDOGREL 75 MG TAB PO SCH (10:15)
[2018-12-28] MEDS: METOPROLOL TARTRATE 25 MG TAB PO SCH ×2 (10:15→21:13)
[2018-12-28] MEDS: FUROSEMIDE 40 MG TAB PO SCH (10:16)
[2018-12-28] MEDS: PREGABALIN 100 MG CAP PO SCH ×2 (10:16→21:13)
[2018-12-28] MEDS: LISINOPRIL 10 MG TAB PO SCH (10:16)
[2018-12-28] MEDS: CHOLECALCIFEROL 1,000 UNIT TAB PO SCH (10:16)
[2018-12-28] MEDS: CITALOPRAM HYDROBROMIDE 20 MG TAB PO SCH (10:16)
[2018-12-28] MEDS: MAGNESIUM SULFATE-D5W PMX 1 GM in DEXTROSE/WATER 1 100ML.BAG IVPB SCH ×2 (10:16→11:53)
[2018-12-28] MEDS: ATORVASTATIN 40 MG TAB PO SCH (10:16)
--- NOTE | 2018-12-28 10:16 | CT ---
EXAMINATION TYPE: CT abdomen pelvis w con DATE OF EXAM: 12/28/2018 COMPARISON: None INDICATION: Abdominal pain; Rule out Appendicitis DLP: 1858 mGycm, Automated exposure control for dose reduction was used. CONTRAST: 100 ml mL of Isovue 300. Study performed with Oral Contrast TECHNIQUE: Axial images were obtained from above the diaphragm to the pubic rami in the axial plane a t 5 mm thick sections. Reconstructed images are reviewed on the computer in the coronal plane. FINDINGS: Limited CT sections are obtained the lung bases. Small bilateral pleural effusions are present. Some minimal atelectasis may be at the left base can be associated with compressive atelectasis. Coronary artery calcification is present.. CT ABDOMEN: Liver: Normal Spleen: Normal Pancreas: Normal Adrenal glands: The adrenal glands are normal. Gallbladder: Gallstone is present. No pericholecystic fluid is identified. Kidneys: No masses are evident. No hydronephrosis is present. No cysts are present. Nonobstructing renal stone in the mid lateral left kidney measures 0.3 cm. Delayed images were obtained through the kidneys which remain unremarkable. Aorta: Vascular calcification is within the aorta. Inferior vena cava: Normal. CT PELVIS: There is marked thickening through the cecum and proximal ascending colon. Some mild adjacent inflamm atory changes are present. However, normal-appearing appendix appears to be identified. There is a sm all lymph node adjacent. Correlate for typhlitis. Remaining loops of bowel appear unremarkable without abnormal thickening. Oral contrast extends to th e rectum. There are some loops of bowel lacking oral contrast limiting their evaluation. Terminal ile um appears normal. Appendix: Normal as visualized. Urinary bladder: Normal as visualized Genitourinary structures: Prostate appears unremarkable. This is limited in evaluation due to bilater al hip prostheses. Osseous structures: No suspicious lytic or sclerotic lesions. Facet hypertrophy is present within the lumbar spine. IMPRESSIONS: 1. Small bilateral pleural effusions. 2. Compressive atelectasis adjacent to the left pleural effusion. 3. Cholelithiasis. 4. Diffuse thickening through the cecum and proximal ascending colon. Correlate for typhlitis. The ad jacent appendix appears within normal limits. There are some inflammatory changes adjacent to the cec um. 5. Preliminary results were discussed with Dr. Hebert by Dr. Castro by telephone approximately 095 5 hours.
[2018-12-28] MEDS: PANTOPRAZOLE 40 MG TABLET PO SCH (10:17)
[2018-12-28] MEDS: AMIODARONE 200 MG TAB PO SCH ×3 (10:17→23:40)
--- NOTE | 2018-12-28 10:20 | P.PN ---
Subjective Progress Note Date: 12/28/18 Principal diagnosis: Atrial flutter by echocardiogram, acute kidney injury, history of aortic valve replacement, history of coronary artery bypass graft 1, history of aortic stenosis, history of infection total joint prosthesis, chronic obstructive pulmonary disease, coronary artery disease, diabetes mellitus, family history of coronary artery disease, hyperlipidemia, hypertension, morbid obesity, osteoarthritis, tobacco dependence in remission, and history of depression. The patient has a history of recent elective aortic valve replacement and coronary artery bypass grafting surgery 1 with a reverse greater saphenous vein graft to the right coronary artery performed on 12/02/[address] Alex Irby. He was readmitted to the hospital with atrial flutter with a right bundle branch block and a heart rate of 123 BPM. He was subsequently admitted for further evaluation and treatment. Yesterday, while on the cardiac stepdown unit the patient was given an amiodarone bolus and within minutes of starting the bolus the patient became unresponsive. The amiodarone bolus was stopped immediately and the patient regained consciousness. This morning the patient remains in atrial flutter heart rate 122 on his bedside monitor. He is complaining of right lower quadrant abdominal pain and is very tender to palpate. A computed tomography scan of his abdomen and pelvis was completed this morning and the results are pending. He denies any complaints of nausea, vomiting, diarrhea or constipation. Reports he did have a bowel movement this a.m. Currently he is on 2 L nasal cannula oxygen saturations 95%. His WBC count this morning is 9.0, hemoglobin 9.6, BUN 29, creatinine 1.38. He is scheduled for a CARMELA and cardioversion for Saturday12/29/2018. He is currently afebrile. Objective - Vital Signs Vital signs: Vital Signs Temp 98.4 F 12/28/18 04:30 Pulse 101 H 12/28/18 07:30 Resp 17 12/28/18 07:30 BP 93/53 12/28/18 07:30 Pulse Ox 97 12/28/18 07:30 Intake & Output 12/27/18 12/28/18 12/28/18 18:59 06:59 18:59 Intake Total 3307.239 8136 1360 Output Total 950 800 Balance 500.764 6758 1360 Weight 127.6 kg Intake: IV 80 2000 160 Sodium Chloride 0.9% 1, 200 000 ml @ 200 mls/hr IV . Q5H [facility] Rx#:[id number] Sodium Chloride 0.9% 1, 80 800 160 000 ml @ 80 mls/hr IV . [id number] [facility] Rx#:[id number] Sodium Chloride 0.9% 1, 1000 000 ml @ 999 mls/hr IV . Q1H1M [facility] Rx#:[id number] Intake, IV Titration 740.526 Amount Heparin Sod,Pork in 0.45% 140.526 NaCl 25,000 unit In 0.45 % NaCl 1 250ml.bag @ 8.35 UNITS/KG/HR 9.99 mls/hr IV .Q24H [facility] Rx#: [id number] Sodium Chloride 0.9% 1, 600 000 ml @ 200 mls/hr IV . Q5H [facility] Rx#:[id number] Oral 360 1200 Output: Urine 950 800 Other: # Bowel Movements 1 1 - Constitutional General appearance: Present: cooperative, morbidly obese, no acute distress - Respiratory Details: Lungs sounds are essentially clear throughout, diminished to his bilateral bases. Respirations are symmetrical and nonlabored. Oxygen saturation are 95% on 2 L nasal cannula. He is achieving 1500 mL on his incentive spirometry. - Cardiovascular Details: Regular rhythm and rate. S1 and S2 present, negative for S3, gallop or murmur. Sternum is stable. Bedside telemetry showing atrial flutter heart rate 122. Heart hugger's in place and he is demonstrating appropriate use. Knee-high AVE hose and sequential compression devices in place to his bilateral lower extremities. - Gastrointestinal Gastrointestinal Comment(s): Abdomen soft, nondistended with some right lower quadrant abdominal tenderness. Active bowel sounds all 4 abdominal quadrants. Passing flatus, bowel movement this a.m. Guarding to his right lower quadrant abdomen. - Genitourinary Genitourinary Comment(s): Voiding clear yellow urine. 560 mL output in the last 8 hours. - Integumentary Integumentary Comment(s): Skin is warm and dry. No clubbing or cyanosis is present. No rash or abnormal pigmentation. Yellowish color ecchymotic areas to his bilateral lower abdominal quadrant. Midline sternal incision is clean, dry and approximated. No drainage or redness present. Right lower extremity EVH site clean, dry and approximated. No drainage or redness present. - Neurologic Neurologic: Present: CNII-XII intact - Musculoskeletal Musculoskeletal: Present: gait normal, generalized weakness, strength equal bilaterally - Psychiatric Psychiatric: Present: A&O x's 3, appropriate affect, intact judgment & insight - Allied health notes Allied health notes reviewed: nursing - Labs CBC & Chem 7: 12/28/18 04:59 12/28/18 04:59 Labs: Abnormal Lab Results - Last 24 Hours (Table) 12/27/18 12/27/18 12/27/18 Range/Units 11:12 11:36 17:06 RBC (4.30-5.90) m/uL Hgb (13.0-17.5) gm/dL Hct (39.0-53.0) % RDW (11.5-15.5) % Chloride (98-107) mmol/L BUN (9-20) mg/dL Creatinine (0.66-1.25) mg/dL POC Glucose (mg/dL) 199 H 192 H 227 H (75-99) mg/dL Calcium (8.4-10.2) mg/dL Total Protein (6.3-8.2) g/dL Albumin (3.5-5.0) g/dL 12/27/18 12/28/18 12/28/18 Range/Units 20:54 04:59 04:59 RBC 3.09 L (4.30-5.90) m/uL Hgb 9.6 L (13.0-17.5) gm/dL Hct 29.6 L (39.0-53.0) % RDW 15.6 H (11.5-15.5) % Chloride 108 H (98-107) mmol/L BUN 29 H (9-20) mg/dL Creatinine 1.38 H (0.66-1.25) mg/dL POC Glucose (mg/dL) 190 H (75-99) mg/dL Calcium 8.0 L (8.4-10.2) mg/dL Total Protein 4.9 L (6.3-8.2) g/dL Albumin 2.7 L (3.5-5.0) g/dL 12/28/18 Range/Units 06:55 RBC (4.30-5.90) m/uL Hgb (13.0-17.5) gm/dL Hct (39.0-53.0) % RDW (11.5-15.5) % Chloride (98-107) mmol/L BUN (9-20) mg/dL Creatinine (0.66-1.25) mg/dL POC Glucose (mg/dL) 102 H (75-99) mg/dL Calcium (8.4-10.2) mg/dL Total Protein (6.3-8.2) g/dL Albumin (3.5-5.0) g/dL - Imaging and Cardiology Chest x-ray: report reviewed, image reviewed Assessment and Plan (1) Atrial flutter by electrocardiogram Current Visit: Yes Status: Acute Code(s): I48.92 - UNSPECIFIED ATRIAL FLUTTER SNOMED Code(s): 054716981 (2) Acute kidney injury Current Visit: Yes Status: Acute Code(s): N17.9 - ACUTE KIDNEY FAILURE, UNSPECIFIED SNOMED Code(s): 48358449 (3) H/O aortic valve replacement Current Visit: Yes Status: Acute Code(s): Z95.2 - PRESENCE OF PROSTHETIC HEART VALVE SNOMED Code(s): 2928486349305 (4) History of coronary artery bypass graft x 1 Current Visit: Yes Status: Acute Code(s): Z95.1 - PRESENCE OF AORTOCORONARY BYPASS GRAFT SNOMED Code(s): 853560990 (5) Aortic stenosis Current Visit: No Status: Chronic Code(s): I35.0 - NONRHEUMATIC AORTIC ( VALVE) STENOSIS SNOMED Code(s): 24989598 (6) COPD (chronic obstructive pulmonary disease) Current Visit: No Status: Chronic Code(s): J44.9 - CHRONIC OBSTRUCTIVE PULMONARY DISEASE, UNSPECIFIED SNOMED Code(s): 84927297 (7) Coronary artery disease Current Visit: No Status: Chronic Code(s): I25.10 - ATHSCL HEART DISEASE OF [place] CORONARY ARTERY W/O ANG PCTRS SNOMED Code(s): 73382504 (8) Diabetes mellitus Current Visit: No Status: Chronic Code(s): E11.9 - TYPE 2 DIABETES MELLITUS WITHOUT COMPLICATIONS SNOMED Code(s): 75481384 (9) Family history of coronary artery disease Current Visit: No Status: Chronic Code(s): Z82.49 - FAMILY HX OF ISCHEM HEART DIS AND OTH DIS OF THE CIRC SYS SNOMED Code(s): 514604037 (10) Hyperlipidemia Current Visit: No Status: Chronic Code(s): E78.5 - HYPERLIPIDEMIA, UNSPECIFIED SNOMED Code(s): 05725796 (11) Hypertension Current Visit: No Status: Chronic Code(s): I10 - ESSENTIAL (PRIMARY) HYPERTENSION SNOMED Code(s): 79265501 (12) Obesity (BMI 30-39.9) Current Visit: No Status: Chronic Code(s): E66.9 - OBESITY, UNSPECIFIED SNOMED Code(s): 877018150 (13) Osteoarthritis Current Visit: No Status: Chronic Code(s): M19.90 - UNSPECIFIED OSTEOARTHRITIS, UNSPECIFIED SITE SNOMED Code(s): 164599058 (14) Tobacco dependence in remission Current Visit: No Status: Resolved Code(s): F17.201 - NICOTINE DEPENDENCE, UNSPECIFIED, IN REMISSION SNOMED Code(s): 663497702 (15) Depression Current Visit: Yes Status: Acute Code(s): F32.9 - MAJOR DEPRESSIVE DISORDER , SINGLE EPISODE, UNSPECIFIED SNOMED Code(s): 52765305 (16) DVT prophylaxis Current Visit: Yes Status: Acute Code(s): ZQS2936 - SNOMED Code(s): 969226529 (17) Personal history of infected joint Current Visit: No Status: Acute Code(s): Z87.39 - PERSONAL HISTORY OF DISEASES OF THE MS SYS AND CONN TISS SNOMED Code(s): 723600833 Plan: 1. Continue low-dose aspirin, statin, DARWIN inhibitor and beta paul. 2. Encourage use of his incentive spirometry every hour while awake. 3. Will monitor daily labs and x-rays. 4. Increase activity as tolerated. PT/OT consulted. 5. GI prophylaxis with Protonix. DVT prophylaxis with heparin drip, SCDs. 6. Pain control with current medication regimen. 7. Insulin management per primary care service. 8. Discontinue Eliquis, start heparin drip per protocol low intensity. 9. Per cardiology the patient will be scheduled for a CARMELA with cardioversion tomorrow morning 12/29/2017. 10. Initiate amiodarone 200 mg by mouth 3 times a day. Atrial fibrillation/ atrial flutter prophylaxis. 11. General surgery consulted for abnormal findings on computed tomography scan of his abdomen/pelvis. 12. Antibiotic management per Dr. Hebert's recommendations. 13. Nothing by mouth. 14. More recommendations to follow based on patient's clinical course. Time with Patient: Greater than 30
--- NOTE | 2018-12-28 10:31 | P.PN ---
Subjective Progress Note Date: 12/28/18 Principal diagnosis: This is a 68-year-old male seen in consultation because of acute kidney injury, secondary to atrial fibrillation and prerenal. Creatinine has continued to improve. This morning he does complain of right lower quadrant pain a CAT scan shows possible ileus he has moved her bowels twice today. Somewhat loose but no blood. Is somewhat tender in the right lower quadrant area. He has been urinating without any problem, she does not have a Leonard catheter. His appetite is good. Denies any fever chills. No cough. No abdominal pain diarrhea. He came in because of recurrence of atrial fibrillation from [facility]. He was recuperating there after recent aortic valve replacement and 1 vessel coronary artery bypass graft which was between 12/02/2018, to discharge on 12/09/2018 He denies taking any nonsteroidals antibiotics. No nausea vomiting diarrhea he did feel dizzy on standing up in the [facility]. He was unable to do much walking with shortness of breath on walking about 20 feet per the patient Is known with diabetes, history of herpes on prolonged treatment with valve acyclovir, right hip replacement 2004 and the done in 2012 and left hip replacement in 2014. Objective - Vital Signs Vital signs: Vital Signs Temp 98.4 F 12/28/18 04:30 Pulse 101 H 12/28/18 07:30 Resp 17 12/28/18 07:30 BP 93/53 12/28/18 07:30 Pulse Ox 97 12/28/18 07:30 Intake & Output 12/27/18 12/28/18 12/28/18 18:59 06:59 18:59 Intake Total 4901.148 3467 1360 Output Total 950 800 Balance 920.006 6440 1360 Weight 127.6 kg Intake: IV 80 2000 160 Sodium Chloride 0.9% 1, 200 000 ml @ 200 mls/hr IV . Q5H [facility] Rx#:[id number] Sodium Chloride 0.9% 1, 80 800 160 000 ml @ 80 mls/hr IV . [id number] [facility] Rx#:[id number] Sodium Chloride 0.9% 1, 1000 000 ml @ 999 mls/hr IV . Q1H1M [facility] Rx#:[id number] Intake, IV Titration 740.526 Amount Heparin Sod,Pork in 0.45% 140.526 NaCl 25,000 unit In 0.45 % NaCl 1 250ml.bag @ 8.35 UNITS/KG/HR 9.99 mls/hr IV .Q24H [facility] Rx#: [id number] Sodium Chloride 0.9% 1, 600 000 ml @ 200 mls/hr IV . Q5H [facility] Rx#:[id number] Oral 360 1200 Output: Urine 950 800 Other: # Bowel Movements 1 1 On examination is awake alert oriented comfortable Remains in atrial fibrillation. Blood pressure is somewhat low in the 90s No JVP neck is supple no facial asymmetry Lungs are clear to auscultation good air entry bilaterally Heart sounds are unremarkable for any murmur rub gallop Abdomen soft but tender in the right lower quadrant somewhat obese Extremity exam was trace edema Neurologically awake alert oriented. - Labs CBC & Chem 7: 12/28/18 04:59 12/28/18 04:59 Labs: Abnormal Lab Results - Last 24 Hours (Table) 12/27/18 12/27/18 12/27/18 Range/Units 11:12 11:36 17:06 RBC (4.30-5.90) m/uL Hgb (13.0-17.5) gm/dL Hct (39.0-53.0) % RDW (11.5-15.5) % Chloride (98-107) mmol/L BUN (9-20) mg/dL Creatinine (0.66-1.25) mg/dL POC Glucose (mg/dL) 199 H 192 H 227 H (75-99) mg/dL Calcium (8.4-10.2) mg/dL Total Protein (6.3-8.2) g/dL Albumin (3.5-5.0) g/dL 12/27/18 12/28/18 12/28/18 Range/Units 20:54 04:59 04:59 RBC 3.09 L (4.30-5.90) m/uL Hgb 9.6 L (13.0-17.5) gm/dL Hct 29.6 L (39.0-53.0) % RDW 15.6 H (11.5-15.5) % Chloride 108 H (98-107) mmol/L BUN 29 H (9-20) mg/dL Creatinine 1.38 H (0.66-1.25) mg/dL POC Glucose (mg/dL) 190 H (75-99) mg/dL Calcium 8.0 L (8.4-10.2) mg/dL Total Protein 4.9 L (6.3-8.2) g/dL Albumin 2.7 L (3.5-5.0) g/dL 12/28/18 Range/Units 06:55 RBC (4.30-5.90) m/uL Hgb (13.0-17.5) gm/dL Hct (39.0-53.0) % RDW (11.5-15.5) % Chloride (98-107) mmol/L BUN (9-20) mg/dL Creatinine (0.66-1.25) mg/dL POC Glucose (mg/dL) 102 H (75-99) mg/dL Calcium (8.4-10.2) mg/dL Total Protein (6.3-8.2) g/dL Albumin (3.5-5.0) g/dL Assessment and Plan Assessment: Impression 1. Acute kidney injury secondary to atrial fibrillation, postural dizziness suggesting some amount of volume depletion and improving with IV fluids. Creatinine on admission was 2.09 and is improved to 1.38 this morning . 2. Possible chronic kidney disease trace proteinuria on 11/18/2018. Creatinine though is 1.09 on 12/09/2018. 3. Admitted with recurrence of atrial fibrillation currently back in normal sinus rhythm. 4. Recent aortic valve replacement with a porcine valve and single-vessel CABG. 5. Mild degree of anemia hemoglobin is 10.2. Recommendation. 1. Continue IV fluids normal saline at 75 an hour. 2. Monitor BUN/creatinine electrolytes, hemoglobin, intake and output and blood pressure. 3. Avoid any nephrotoxic medications. 4. Maintain small dose of lisinopril currently on 10 mg which is acceptable. 5. We'll continue to follow
--- NOTE | 2018-12-28 10:54 | P.PN ---
Subjective Progress Note Date: 12/28/18 68-year-old male one of Dr. Graham patient who was admitted to the hospital 12/02/2018 to 12/09/2018 for elective aortic valve placement and one-vessel CABG which is reverse saphenous vein graft to the right coronary artery in by Dr. Irby cardiothoracic. Patient was in the hospital for a few days developed to have A. fib with RVR was started on amiodarone and was back in sinus rhythm. Pulse rate is well-controlled. Patient was transferred to [facility] on leg for rehab. Was seen Dr. Washington today at [facility] on the anthony and found to be in A. fib with RVR pulse rate running about 150 beats per minutes. Also patient was dehydrated dry having hypotension was sent to the emergency department at [facility] where was seen and evaluated found to be in A. fib with RVR with pulse rate rapid. Cardiothoracic and cardiology were inform patient also found to be in acute kidney failure with acute kidney injury most likely ATN creatinine is up to 2.08 from 1.0. Patient was started on gentle hydration Cardizem drip and heparin drip and was admitted to the hospital with above problem. 12/27: Patient is resting in bed without any acute distress. Patient continues to be in A. fib with RVR pulse rate running about 120. Patient denies any difficulty breathing or shortness of breath at this time. Incisional site remains clean and dry. Patient has no new concerns or complaints at this time. WC 4.8, hemoglobin 10.2, platelets 15.7, sodium 140, potassium 5.3, chloride 105, BUN is 32 creatinine 1.81, glucose 200. 12/28: Through the night patient experienced severe abdominal pain. Patient was transferred to the intensive care unit for monitoring. CAT of the abdomen with and without contrast was performed. CT showed small bilateral pleural effusion , compressive atelectasis adjacent to the left pleural effusion, cholelithiasis , diffuse thickening through the cecum and proximal ascending colon. Patient continues to have right lower quadrant abdominal pain and tenderness. Patient denies any nausea or vomiting. Patient continues to be in A. fib with RVR pulse rate running in 115. Review of Systems CONSTITUTIONAL: Well-developed no acute respiratory distress. EYES: No icterus sclerae, no conjunctivitis. EARS, NOSE, MOUTH, THROAT, and FACE: No sore throat, lymphadenopathy, carotid bruits or deformity. RESPIRATORY: Mild shortness of breath no wheezes CARDIOVASCULAR: Positive chest wall pain, positive palpitation and PND GASTROINTESTINAL: Reports right lower quadrant Abd pain, Nausea or vomiting, no Diarrhea or constipation, No GI Bleed, no distention or masses. GENITOURINARY: Negative for Hematuria or UTI, no kidney stones. INTEGUMENT/BREAST: Negative for any muscular injury with mild osteoarthritis.. HEMATOLOGIC/LYMPHATIC: Negative for bleed or purpura. MUSCULOSKELTAL: Negative for Myalgia or arthralgia. NEURLOGICAL: No LOC, Sz or syncope, blurred vision dizziness or abnormality.. BEHAVIORAL/PSYCH: Negative. ENDOCRINE: Negative. Objective - Vital Signs Vital signs: Vital Signs Temp 98.4 F 12/28/18 04:30 Pulse 101 H 12/28/18 07:30 Resp 17 12/28/18 07:30 BP 93/53 12/28/18 07:30 Pulse Ox 97 12/28/18 07:30 Intake & Output 12/27/18 12/28/18 12/28/18 18:59 06:59 18:59 Intake Total 1836.875 4225 1360 Output Total 950 800 Balance 515.530 0502 1360 Weight 127.6 kg Intake: IV 80 2000 160 Sodium Chloride 0.9% 1, 200 000 ml @ 200 mls/hr IV . Q5H [facility] Rx#:[id number] Sodium Chloride 0.9% 1, 80 800 160 000 ml @ 80 mls/hr IV . [id number] [facility] Rx#:[id number] Sodium Chloride 0.9% 1, 1000 000 ml @ 999 mls/hr IV . Q1H1M [facility] Rx#:[id number] Intake, IV Titration 740.526 Amount Heparin Sod,Pork in 0.45% 140.526 NaCl 25,000 unit In 0.45 % NaCl 1 250ml.bag @ 8.35 UNITS/KG/HR 9.99 mls/hr IV .Q24H [facility] Rx#: [id number] Sodium Chloride 0.9% 1, 600 000 ml @ 200 mls/hr IV . Q5H [facility] Rx#:[id number] Oral 360 1200 Output: Urine 950 800 Other: # Bowel Movements 1 1 - Exam General Appearance: Alert, cooperative, no distress, appears stated age. Neck HEENT: Supple, no lymphadenopathy, no thyroid enlargement, no carotid bruits. Lungs: Decreased breath sound bilaterally specially in the left side with fine rhonchi no wheezes. Chest Wall: Decrease expansion with deep inspiration no tenderness and no deformity was found on exam, no costochondral pain or discomfort. Incision in the mid sternum area looks good with no sign of infection or induration or redness. Heart: IRRegular rate and rhythm, S1, S2 normal, positive S3, positive aortic valve click no murmur, rub or gallop. Back: Symmetric, no curvature, ROM normal, no CVA tenderness. Abdomen: Soft, tender right lower quadrant, no rebound tenderness, bowel sounds active all four quadrants, no masses, no organomegaly. Extremities: Trace edema decreased pulse, positive mild osteoarthritis. Pulses: 2+ and symmetric. Skin: Skin color, texture, tugor normal, no rashes or lesions. Neurologic: Alert oriented x3 cranial nerves II through XII intact, no motor deficit, no abnormal balance or gait. - Labs CBC & Chem 7: 12/28/18 04:59 12/28/18 04:59 Labs: Abnormal Lab Results - Last 24 Hours (Table) 12/27/18 12/27/18 12/27/18 Range/Units 11:12 11:36 17:06 RBC (4.30-5.90) m/uL Hgb (13.0-17.5) gm/dL Hct (39.0-53.0) % RDW (11.5-15.5) % Chloride (98-107) mmol/L BUN (9-20) mg/dL Creatinine (0.66-1.25) mg/dL POC Glucose (mg/dL) 199 H 192 H 227 H (75-99) mg/dL Calcium (8.4-10.2) mg/dL Total Protein (6.3-8.2) g/dL Albumin (3.5-5.0) g/dL 12/27/18 12/28/18 12/28/18 Range/Units 20:54 04:59 04:59 RBC 3.09 L (4.30-5.90) m/uL Hgb 9.6 L (13.0-17.5) gm/dL Hct 29.6 L (39.0-53.0) % RDW 15.6 H (11.5-15.5) % Chloride 108 H (98-107) mmol/L BUN 29 H (9-20) mg/dL Creatinine 1.38 H (0.66-1.25) mg/dL POC Glucose (mg/dL) 190 H (75-99) mg/dL Calcium 8.0 L (8.4-10.2) mg/dL Total Protein 4.9 L (6.3-8.2) g/dL Albumin 2.7 L (3.5-5.0) g/dL 12/28/18 Range/Units 06:55 RBC (4.30-5.90) m/uL Hgb (13.0-17.5) gm/dL Hct (39.0-53.0) % RDW (11.5-15.5) % Chloride (98-107) mmol/L BUN (9-20) mg/dL Creatinine (0.66-1.25) mg/dL POC Glucose (mg/dL) 102 H (75-99) mg/dL Calcium (8.4-10.2) mg/dL Total Protein (6.3-8.2) g/dL Albumin (3.5-5.0) g/dL Assessment and Plan Plan: 1 A. fib with RVR: Patient was admitted to the hospital with start Cardizem drip 5 mg per hour, continue on amiodarone, continue heparin drip, continue metoprolol. as well we'll consult cardiology and cardiothoracic surgery. 2 Acute kidney injury with most likely ATN with acute kidney failure decrease GFR significantly, we'll continue gentle hydration, repeat BUN/creatinine 24 hours and try to stop any nephrotoxic agent, also consult nephrology. 3 post aortic valve placement: Successful surgery so far with no major complication. Continue incentive spirometer 4 post one-vessel CABG was reverse saphenous to the RCI stable so far. 5 type 2 diabetes: Has been on Humalog and long acting insulin resume both continue Accu-Chek with sliding scales coverage. 6 Hypertension: Blood pressure is well-controlled currently on lisinopril and metoprolol. 7 Hyperlipidemia: Continue patient on atorvastatin 40 mg daily. 8 Mild depression: Continue Cipro Lipram 20 mg daily. 9 mild COPD: Continue patient on albuterol/ipratropium nebulizer continue O2 try to keep pulse ox above 90 percentile. 10. Colitis: Consult surgery, start Flagyl 500 grams every 8 hours IV piggyback , Rocephin 1 g IV piggyback every 24 hours for 11 GI prophylaxis/GERD: Continue patient on pantoprazole 40 mg daily. 12 DVT prophylaxis: Patient will be started on heparin drip for now and buttermaker helper anticoagulation will be needed. CODE STATUS: Full code. Admit patient to inpatient status for more than 2 nights. Impression and plan of care have been directed as dictated by the signing physician. Lynn Starkey nurse practitioner acting as scribe for signing physician.
[2018-12-28] MEDS: INSULIN DETEMIR (LEVEMIR) 100 UNIT/ML SYR SQ SCH ×2 (10:59→20:48)
[2018-12-28 11:18] LABS: INR 1.1 (<1.2); Partial Thromboplastin Time 28.7 sec (22.0-30.0); Prothrombin Time 11.2 sec (9.0-12.0)
[2018-12-28 11:43] LABS: Glucose,Whole Blood 144 mg/dL (75-99)
[2018-12-28] MEDS: metroNIDAZOLE-NS PMX 500 MG in SALINE 1 100ML.BAG IVPB SCH ×3 (11:53→23:38)
[2018-12-28] MEDS: HEPARIN SOD,PORK IN 0.45% NACL 25,000 UNIT in 0.45% NACL 1 250ML.BAG IV SCH (12:08)
--- NOTE | 2018-12-28 12:12 | P.GSCN ---
History of Present Illness Consult date: 12/28/18 Reason for Consult: Abdominal pain History of present illness: 68-year-old male with history of recent aortic valve replacement. Patient was in A. fib with rapid ventricular response. Transferred back to the hospital for findings of hypotension at the rehab facility. Patient yesterday was given amiodarone and developed a cardiac arrest that was very short-lived. Chest compressions apparently were given temporarily. This morning the patient developed fairly acute onset right lower quadrant abdominal pain. CAT scan shows significant thickening of a short segment of ascending colon. The small bowel and the remainder of the colon including hepatic flexure and transverse colon are free of inflammatory changes. This study was performed with IV contrast. SMA distribution however difficult to visualize well. Patient is not having pain at rest. Only during examination at this time. He has not been given pain medications. On anticoagulation currently. Review of Systems The patient denies any acute changes in vision or hearing, no dysphagia or odynophagia, no chest pain or shortness of breath, no dysuria or hematuria, no headache, no runny nose, no rectal bleeding or melena, no unexplained weight loss Past Medical History Past Medical History: Atrial Fibrillation, Coronary Artery Disease (CAD), Cancer (Skin cancer), Chest Pain / Angina, COPD (Preoperative FEV1 56 percent of predicted), Diabetes Mellitus, Hyperlipidemia, Hypertension, Osteoarthritis ( OA), Skin Disorder (History of shingles), Syncope Additional Past Medical History / Comment(s): Severe aortic stenosis status post aortic valve replacement, coronary artery disease status post single- vessel bypass surgery, hypertension, hyperlipidemia, diabetes mellitus with symptoms of neuropathy and the patient is a preoperative hemoglobin A1c of 6.3, COPD with an FEV1 of 56% of predicted, obesity with a BMI of 38, shingles, depression, basal cell carcinoma of the skin that was diagnosed in 2015 2016 resected, osteoarthritis, history of right and left hip replacement with postoperative infections and subsequent antibiotic treatment with Dr. Ricci, anemia predominantly postop, postoperative atrial fibrillation following cardiac surgery History of Any Multi-Drug Resistant Organisms: None Reported Past Surgical History: Cardiac Valve Replacement, Coronary Bypass/CABG, Heart Catheterization, Joint Replacement, Orthopedic Surgery Additional Past Surgical History / Comment(s): RIGHT HIP REPLACED IN 2004, DEVELOPED INFECTION, AND REDONE IN AUG, 2013. 07-25-15 .LT HIP REPLACEMENT. ADMITTED WITH INC CELLULITIS LT HIP, one-vessel coronary artery bypass saphenous to the RCA and aortic valve replacement using bioprosthetic valve Past Anesthesia/Blood Transfusion Reactions: No Reported Reaction Additional Past Anesthesia/Blood Transfusion Reaction / Comm: Pt has received blood transfusion without reaction. Past Psychological History: Depression Additional Psychological History / Comment(s): and lives with family home with . Retired. Stopped smoking several years ago with no history of alcohol use. experience. No international travel. No animals in the home. Smoking Status: Former smoker Past Alcohol Use History: Rare Additional Past Alcohol Use History / Comment(s): No cpap.Lives at home with , retired. Past Drug Use History: None Reported - Past Family History Father Family Medical History: Diabetes Mellitus, Hypertension, Memory Impairment Mother Family Medical History: CVA/TIA Brother(s) Family Medical History: Diabetes Mellitus, Hyperlipidemia, Hypertension Son(s) Family Medical History: No Reported History Medications and Allergies Home Medications Medication Instructions Recorded Confirmed Type valACYclovir HCL [Valtrex] 500 mg PO DAILY 07/18/15 12/26/18 History Citalopram Hydrobromide [CeleXA] 20 mg PO DAILY 10/02/17 12/26/18 History Cholecalciferol [Vitamin D3] 1,000 unit PO DAILY 11/12/18 12/26/18 History Furosemide [Lasix] 40 mg PO BID 11/12/18 12/26/18 History Pregabalin [Lyrica] 100 mg PO BID 11/12/18 12/26/18 History Acetaminophen Tab [Tylenol] 325 mg PO Q6HR PRN tab 12/09/18 12/26/18 Rx Acetaminophen Tab [Tylenol] 650 mg PO Q6HR PRN tab 12/09/18 12/26/18 Rx Aspirin 325 mg PO DAILY tab 12/09/18 12/26/18 Rx Atorvastatin [Lipitor] 40 mg PO DAILY tab 12/09/18 12/26/18 Rx Clopidogrel [Plavix] 75 mg PO DAILY tab 12/09/18 12/26/18 Rx Heparin Sodium,Porcine [Heparin 5,000 unit SQ Q8HR vial 12/09/18 12/26/18 Rx Sodium] Ipratropium-Albuterol Nebulize 3 ml INHALATION RT-QID ampul.neb 12/09/18 Rx [Duoneb 0.5 mg-3 mg/3 ml Soln] Lisinopril [Zestril] 10 mg PO DAILY tab 12/09/18 12/26/18 Rx Metoprolol Tartrate [Lopressor] 50 mg PO BID tab 12/09/18 12/26/18 Rx Amiodarone [Cordarone] 200 mg PO DAILY 12/26/18 12/26/18 History Insulin Glargine,Hum.rec.anlog 20 unit SQ QAM 12/26/18 12/26/18 History [Basaglar Kwikpen U-100] Insulin Glargine,Hum.rec.anlog 40 unit SQ HS 12/26/18 12/26/18 History [Basaglar Kwikpen U-100] Insulin Lispro [humaLOG Kwikpen] 15 unit SQ TID-W/MEALS 12/26/18 12/26/18 History Insulin Lispro [humaLOG Kwikpen] See Protocol SQ TID 12/26/18 12/26/18 History Pantoprazole [Protonix] 40 mg PO QAM 12/26/18 12/26/18 History Sennosides-Docusate Sodium 2 tab PO HS PRN 12/26/18 12/26/18 History [Senokot-S] Allergies Allergy/AdvReac Type Severity Reaction Status Date / Time Penicillins Allergy Rash/Hives Verified 12/26/18 17:05 Surgical - Exam Vital Signs Temp Pulse Resp BP Pulse Ox 97.7 F 121 H 16 109/56 98 12/26/18 16:09 12/26/18 16:09 12/26/18 16:09 12/26/18 16:09 12/26/18 16:09 Physical exam: General: Well-developed, well-nourished HEENT: Normocephalic, sclerae nonicteric Abdomen: Right lower and mid abdominal tenderness, nondistended Extremities: No edema Neuro: Alert and oriented Results - Labs 12/28/18 04:59 12/28/18 04:59 Abnormal Lab Results - Last 24 Hours (Table) 12/27/18 12/27/18 12/28/18 Range/Units 17:06 20:54 04:59 RBC 3.09 L (4.30-5.90) m/uL Hgb 9.6 L (13.0-17.5) gm/dL Hct 29.6 L (39.0-53.0) % RDW 15.6 H (11.5-15.5) % Chloride (98-107) mmol/L BUN (9-20) mg/dL Creatinine (0.66-1.25) mg/dL POC Glucose (mg/dL) 227 H 190 H (75-99) mg/dL Plasma Lactic Acid Philip (0.7-2.0) mmol/L Calcium (8.4-10.2) mg/dL Total Protein (6.3-8.2) g/dL Albumin (3.5-5.0) g/dL 12/28/18 12/28/18 12/28/18 Range/Units 04:59 06:55 10:45 RBC (4.30-5.90) m/uL Hgb (13.0-17.5) gm/dL Hct (39.0-53.0) % RDW (11.5-15.5) % Chloride 108 H (98-107) mmol/L BUN 29 H (9-20) mg/dL Creatinine 1.38 H (0.66-1.25) mg/dL POC Glucose (mg/dL) 102 H (75-99) mg/dL Plasma Lactic Acid Philip 3.2 H* (0.7-2.0) mmol/L Calcium 8.0 L (8.4-10.2) mg/dL Total Protein 4.9 L (6.3-8.2) g/dL Albumin 2.7 L (3.5-5.0) g/dL 12/28/18 Range/Units 11:42 RBC (4.30-5.90) m/uL Hgb (13.0-17.5) gm/dL Hct (39.0-53.0) % RDW (11.5-15.5) % Chloride (98-107) mmol/L BUN (9-20) mg/dL Creatinine (0.66-1.25) mg/dL POC Glucose (mg/dL) 144 H (75-99) mg/dL Plasma Lactic Acid Philip (0.7-2.0) mmol/L Calcium (8.4-10.2) mg/dL Total Protein (6.3-8.2) g/dL Albumin (3.5-5.0) g/dL Diabetes panel 12/27/18 12/28/18 Range/Units 14:27 04:59 Sodium 137 (137-145) mmol/L Potassium 4.9 4.7 (3.5-5.1) mmol/L Chloride 108 H (98-107) mmol/L Carbon Dioxide 23 (22-30) mmol/L BUN 29 H (9-20) mg/dL Creatinine 1.38 H (0.66-1.25) mg/dL Glucose 94 (74-99) mg/dL Calcium 8.0 L (8.4-10.2) mg/dL AST 35 (17-59) U/L ALT 25 (21-72) U/L Alkaline Phosphatase 64 (38-126) U/L Total Protein 4.9 L (6.3-8.2) g/dL Albumin 2.7 L (3.5-5.0) g/dL Calcium panel 12/28/18 Range/Units 04:59 Calcium 8.0 L (8.4-10.2) mg/dL Phosphorus 3.8 (2.5-4.5) mg/dL Albumin 2.7 L (3.5-5.0) g/dL Pituitary panel 12/27/18 12/28/18 Range/Units 14:27 04:59 Sodium 137 (137-145) mmol/L Potassium 4.9 4.7 (3.5-5.1) mmol/L Chloride 108 H (98-107) mmol/L Carbon Dioxide 23 (22-30) mmol/L BUN 29 H (9-20) mg/dL Creatinine 1.38 H (0.66-1.25) mg/dL Glucose 94 (74-99) mg/dL Calcium 8.0 L (8.4-10.2) mg/dL Adrenal panel 12/27/18 12/28/18 Range/Units 14:27 04:59 Sodium 137 (137-145) mmol/L Potassium 4.9 4.7 (3.5-5.1) mmol/L Chloride 108 H (98-107) mmol/L Carbon Dioxide 23 (22-30) mmol/L BUN 29 H (9-20) mg/dL Creatinine 1.38 H (0.66-1.25) mg/dL Glucose 94 (74-99) mg/dL Calcium 8.0 L (8.4-10.2) mg/dL Total Bilirubin 1.2 (0.2-1.3) mg/dL AST 35 (17-59) U/L ALT 25 (21-72) U/L Alkaline Phosphatase 64 (38-126) U/L Total Protein 4.9 L (6.3-8.2) g/dL Albumin 2.7 L (3.5-5.0) g/dL Assessment and Plan (1) Acute ischemic colitis Narrative/Plan: Patient with short segment of colitis likely on the basis of ischemia from microvascular emboli. Patient seems to be having less pain than when the pain began at 6 AM. CAT scan findings do not suggest a wide distribution. Continue anticoagulation. Begin liquid diet. Empiric antibiotics. We'll follow closely and if the patient has increasing tenderness or evidence of peritoneal signs may require surgical exploration. Current Visit: Yes Status: Acute Code(s): K55.039 - ACUTE ISCHEMIA OF LARGE INTESTINE, EXTENT UNSPECIFIED SNOMED Code(s): 08686484
[2018-12-28] MEDS ORDERED: HYDROmorphone 0.5 MG/0.5 ML SYRINGE IM PRN (12:13)
--- NOTE | 2018-12-28 13:01 | P.PN ---
Subjective Progress Note Date: 12/28/18 This is a 68-year-old male patient with known history of coronary artery disease and the patient underwent a single-vessel bypass surgery and aortic valve replacement on 12/02/2018 in our institution. The patient is also known to have hypertension and hyperlipidemia and diabetes mellitus and peripheral neuropathy. Is a former smoker. I was involved in this patient's postoperative care. The patient did well. The patient was discharged to [facility] on [facility] on on 12/09/2018. Note that the patient's aortic valve are present was done for severe aortic stenosis. He has some background COPD with an FEV1 of 56% of predicted. He is obese and his BMI is at 38.3. The patient did develop atrial fibrillation following his surgery. He did convert to normal sinus rhythm after he was given amiodarone. Upon discharge, he was given amiodarone 400 mg by mouth twice a day in addition to aspirin and metoprolol 50 mg by mouth twice a day. He was also given Lasix 40 mg by mouth daily. He was asked to continue Levemir insulin 40 units at bedtime and 20 units in the morning in addition to DuoNeb nebulized treatments on the clock. His regimen also includes a combination of aspirin and Plavix. He has also history of herpetic infection for which she is on Valtrex. The patient came in to the emergency department after he was found by his primary care physician to be in atrial fibrillation/flutter with rapid ventricular response. The patient was initially resting comfortably in his bed and he was not having any significant distress. He denies having any symptoms of chest pain or shortness of breath or dizziness. He stated that his heart was racing. In the emergency department, the patient was also found to be acute kidney injury. The creatinine at time of admission was 2.09 knowing that time of the chest creatinine was completely within normal limits. His current creatinine is at 1.8. The patient was initially admitted to selective unit where he was started on amiodarone bolus and while the bolus was infusing the patient went unresponsive. According to the rhythm strips, the patient had a positive around 5 seconds and he was briefly given CPR. He did wake up within a few seconds. The patient had a bowel movement following that and he also felt diaphoretic. He got moved to the intensive care unit. His current rhythm is a flutter with a rate of 117-120. He is on no amiodarone drip. He is taking metoprolol the dose of which was modified and the patient is currently taking 75 mg by mouth twice a day. He is also started on long-term anticoagulation with Eliquis. His sternum is stable clean and intact. He has not voided yet. He is receiving IV fluids in order of 80 mL an hour and he will be receiving IV fluid bolus as recommended by cardiology. Echocardiogram was done and the patient has a preserved LV function with an ejection fraction of 50-55% and there is no other valvular abnormalities. The aortic valve was not well visualized and the peak gradient across the valve was 11 mmHg and it is a normally functioning bioprosthetic valve. The right ventricular systolic pressure was not measured as there was no tricuspid regurgitation jet. On today's evaluation of 12/28/2018, the patient remains in atrial flutter. The rate is under better control and the patient is less tachycardic. He briefly went into a sinus rhythm yesterday however subsequently went back into a flutter rhythm. No chest pain. No palpitation. No shortness of breath. He did complain of right lower quadrant pain today. On examination he had direct and rebound tenderness. Based on that, he was sent for a stat CAT scan of the abdomen and pelvis that showed evidence of cecal inflammation. The area in the cecum was quite inflamed and swollen and there was diffuse thickening through the cecum and proximal ascending colon. For this reason, the patient was started on a combination of IV Rocephin and Flagyl. Gen. surgery was consulted. The patient likely had an embolic phenomena as the patient went into atrial flutter and he could've embolized to his bowel. Ischemic colitis, hypotension is another possibility. In any rate, the patient was seen by general surgery. He is not having any nausea or vomiting. His abdominal pain is around 2 out of 10 in severity. No altered mentation. His lactic acid level came back at 3.2. He is on IV fluids. He was given another bolus yesterday and his creatinine is improving and is down to 1.38. He is back on oral amiodarone 200 mg by mouth 3 times a day. He is also on metoprolol 75 mg by mouth twice a day and his heart rate is under much better control and today' s evaluation. Objective - Vital Signs Vital signs: Vital Signs Temp 98.5 F 12/28/18 08:00 Pulse 89 12/28/18 11:30 Resp 16 12/28/18 11:30 BP 95/52 12/28/18 11:30 Pulse Ox 97 12/28/18 11:30 Intake & Output 12/27/18 12/28/18 12/28/18 18:59 06:59 18:59 Intake Total 6684.467 4866 1700 Output Total 950 800 350 Balance 869.893 2678 1350 Weight 127.6 kg Intake: IV 80 2000 500 Magnesium Sulfate-D5w Pmx 100 1 gm In Dextrose/Water 1 100ml.bag @ 100 mls/hr IVPB Q1H [facility] Rx#: [id number] Sodium Chloride 0.9% 1, 200 000 ml @ 200 mls/hr IV . Q5H [facility] Rx#:[id number] Sodium Chloride 0.9% 1, 80 800 400 000 ml @ 80 mls/hr IV . [id number] [facility] Rx#:[id number] Sodium Chloride 0.9% 1, 1000 000 ml @ 999 mls/hr IV . Q1H1M [facility] Rx#:[id number] Intake, IV Titration 740.526 Amount Heparin Sod,Pork in 0.45% 140.526 NaCl 25,000 unit In 0.45 % NaCl 1 250ml.bag @ 8.35 UNITS/KG/HR 9.99 mls/hr IV .Q24H [facility] Rx#: [id number] Sodium Chloride 0.9% 1, 600 000 ml @ 200 mls/hr IV . Q5H [facility] Rx#:[id number] Oral 360 1200 Output: Urine 950 800 350 Other: # Bowel Movements 1 1 - Exam GENERAL: This is a 68-year-old male in no apparent distress at the time of my examination. HEENT: Head is atraumatic, normocephalic. Pupils are equal, round. Sclerae anicteric. Conjunctivae are clear. Mucous membranes of the mouth are moist. Neck is supple. There is no jugular venous distention. No carotid bruit is heard. LUNGS: Clear to auscultation no wheezes, rales or rhonchi. No chest wall tenderness is noted on palpation or with deep breathing. HEART: Irregular rate and rhythm with systolic ejection murmur at the base, no rubs or gallops. S1 and S2 heard. Heart [address]. Sternal scar noted clean dry and intact. ABDOMEN: Soft, tender. Bowel sounds are heard. No organomegaly noted. The patient has direct tenderness in his right lower quadrant area. there is some rebound tenderness. No guarding. No ascites. Bowel sounds are hypoactive at the present.EXTREMITIES: No evidence of peripheral edema and no calf tenderness noted. VASCULAR: Radial and dorsalis pedis pulses palpated, no evidence of clubbing. NEUROLOGIC: Patient is awake, alert and oriented x3. - Labs CBC & Chem 7: 12/28/18 04:59 12/28/18 04:59 Labs: Abnormal Lab Results - Last 24 Hours (Table) 12/27/18 12/27/18 12/28/18 Range/Units 17:06 20:54 04:59 RBC 3.09 L (4.30-5.90) m/uL Hgb 9.6 L (13.0-17.5) gm/dL Hct 29.6 L (39.0-53.0) % RDW 15.6 H (11.5-15.5) % Chloride (98-107) mmol/L BUN (9-20) mg/dL Creatinine (0.66-1.25) mg/dL POC Glucose (mg/dL) 227 H 190 H (75-99) mg/dL Plasma Lactic Acid Philip (0.7-2.0) mmol/L Calcium (8.4-10.2) mg/dL Total Protein (6.3-8.2) g/dL Albumin (3.5-5.0) g/dL 12/28/18 12/28/18 12/28/18 Range/Units 04:59 06:55 10:45 RBC (4.30-5.90) m/uL Hgb (13.0-17.5) gm/dL Hct (39.0-53.0) % RDW (11.5-15.5) % Chloride 108 H (98-107) mmol/L BUN 29 H (9-20) mg/dL Creatinine 1.38 H (0.66-1.25) mg/dL POC Glucose (mg/dL) 102 H (75-99) mg/dL Plasma Lactic Acid Philip 3.2 H* (0.7-2.0) mmol/L Calcium 8.0 L (8.4-10.2) mg/dL Total Protein 4.9 L (6.3-8.2) g/dL Albumin 2.7 L (3.5-5.0) g/dL 12/28/18 Range/Units 11:42 RBC (4.30-5.90) m/uL Hgb (13.0-17.5) gm/dL Hct (39.0-53.0) % RDW (11.5-15.5) % Chloride (98-107) mmol/L BUN (9-20) mg/dL Creatinine (0.66-1.25) mg/dL POC Glucose (mg/dL) 144 H (75-99) mg/dL Plasma Lactic Acid Philip (0.7-2.0) mmol/L Calcium (8.4-10.2) mg/dL Total Protein (6.3-8.2) g/dL Albumin (3.5-5.0) g/dL Assessment and Plan Plan: Assessment 1 a flutter with rapid ventricular response with a brief bout of cardiac cause/ arrest from which the patient recovered and the patient is currently off amiodarone drip. The patient's rate is being controlled with metoprolol and is being considered for cardioversion. Amiodarone was also restarted a dose of 200 mg orally 3 times a day. LV function is preserved and the aortic bioprosthetic valve is fully functional. 2 coronary artery disease with a recent single-vessel bypass surgery 3 acute right lower quadrant pain with evidence of diffuse bowel thickening involving the cecum and ascending colon, consider embolism to the got due to an underlying atrial flutter. Patient will be started on IV heparin. Oral medical condition with taken off. He has been started on broad-spectrum antibiotics and surgical consult this is also obtained. The patient has mild lactic acid elevation. 4 diabetes mellitus type 2 with peripheral neuropathy 5 hypertension history of currently slightly hypotensive receiving IV fluids 6 acute kidney injury, improving and the creatinine is down to 1.3 7 hyperlipidemia 8 COPD with a baseline FEV1 of 56% of predicted 9 history of depression 10 history of shingles currently on Valtrex for chronic suppression 11 history of right and left hip replacement with postoperative infections requiring antibiotics and the patient has been maintained on doxycycline outpatient basis 12 normocytic anemia Plan The patient will be covered with broad-spectrum antibiotics. He is on a combination of Rocephin and Flagyl Continue monitoring the abdominal pain. Monitor the lactic acid level. Monitor the white count. Keep the patient IV heparin for now. Gen. surgical consultation. Patient will need to stay in the intensive care unit. The patient's a flutter has been controlled with a combination of amiodarone and metoprolol orally. Continue IV fluids. Hold Lasix for now. Hold lisinopril for now. We'll continue to follow make further recommendations based on his progress.
--- NOTE | 2018-12-28 14:15 | PN ---
PROGRESS NOTE This patient is status post recent aortic valve replacement, came with atrial flutter and a rapid ventricular response. The patient had an episode of bradycardia with IV amiodarone use. Now patient's heart rate is 90 to 110 per minute. The patient had episodes of hypotension during the night, responded with IV fluids. This morning patient complained of right lower quadrant pain. The CT scan of the abdomen was obtained which is suggestive of possible ischemic colitis. This could be embolic in origin or low blood flow. He is otherwise comfortable. Blood pressure is 95/52 mmHg. Heart rate is 90 per minute. First and second heart sounds are heard. Lungs are clinically clear to auscultation and percussion. Patient's lactic acid is 3.2. Electrolytes are normal. FINAL IMPRESSION: Status post aortic valve replacement with persistent atrial flutter. At present, patient's rate is controlled. The patient had a possible ischemic colitis secondary to embolic episode. The patient will be continued at present on IV heparin. Discussed the condition with Dr. Gimenez and the patient at present is going to be treated conservatively. MMODL / IJN: [id number] /
[2018-12-28 16:49] LABS: Glucose,Whole Blood 151 mg/dL (75-99)
[2018-12-28] MEDS ORDERED: HEPARIN SODIUM,PORCINE 5,000 UNIT/ML 1 ML VIAL IV ONE (20:46)
[2018-12-28 20:48] LABS: Glucose,Whole Blood 139 mg/dL (75-99)
[2018-12-28 23:26] LABS: Glucose,Whole Blood 159 mg/dL (75-99)
[2018-12-29 03:33] LABS: Basophils % (A) 0 %; Eosinophils # (A) 0.2 k/uL (0-0.7); Eosinophils % (A) 3 %; HCT 27.3 % (39.0-53.0); HGB 8.9 gm/dL (13.0-17.5); Hypochromasia Marked; Lymphocytes # (A) 1.4 k/uL (1.0-4.8); Lymphocytes % (A) 19 %; MCH 31.7 pg (25.0-35.0); MCHC 32.7 g/dL (31.0-37.0); Monocytes # (A) 0.3 k/uL (0-1.0); Monocytes % (A) 5 %; Neutrophils # (A) 5.2 k/uL (1.3-7.7); Neutrophils % (A) 71 %; Platelet Count 141 k/uL (150-450); Poikilocytosis Moderate; RBC 2.81 m/uL (4.30-5.90); RDW 15.8 % (11.5-15.5); WBC 7.4 k/uL (3.8-10.6)
[2018-12-29 03:42] LABS: Calcium 8.5 mg/dL (8.4-10.2); Magnesium 2.4 mg/dL (1.6-2.3); Phosphorus 3.9 mg/dL (2.5-4.5); Potassium 4.5 mmol/L (3.5-5.1)
[2018-12-29 05:47] LABS: Glucose,Whole Blood 176 mg/dL (75-99)
[2018-12-29] MEDS: INSULIN ASPART (NovoLOG) 100 UNIT/ML VIAL SQ SCH ×7 (05:50→21:30)
[2018-12-29] MEDS: IPRATROPIUM-ALBUTEROL 3 ML NEB INHALATION SCH ×4 (07:15→20:40)
[2018-12-29] MEDS: METOPROLOL TARTRATE 25 MG TAB PO SCH ×2 (08:58→21:31)
[2018-12-29] MEDS: ATORVASTATIN 40 MG TAB PO SCH (08:58)
[2018-12-29] MEDS: PREGABALIN 100 MG CAP PO SCH ×2 (08:58→21:31)
[2018-12-29] MEDS: CHOLECALCIFEROL 1,000 UNIT TAB PO SCH (08:58)
[2018-12-29] MEDS: CITALOPRAM HYDROBROMIDE 20 MG TAB PO SCH (08:59)
[2018-12-29] MEDS: INSULIN DETEMIR (LEVEMIR) 100 UNIT/ML SYR SQ SCH ×2 (08:59→21:26)
[2018-12-29] MEDS: metroNIDAZOLE-NS PMX 500 MG in SALINE 1 100ML.BAG IVPB SCH ×3 (08:59→23:03)
[2018-12-29] MEDS: ASPIRIN 81 MG PO SCH (08:59)
[2018-12-29] MEDS: AMIODARONE 200 MG TAB PO SCH ×3 (08:59→23:03)
[2018-12-29] MEDS: PANTOPRAZOLE 40 MG TABLET PO SCH (08:59)
[2018-12-29] MEDS: valACYclovir 500 MG TAB PO SCH (08:59)
[2018-12-29] MEDS: SODIUM CHLORIDE 0.9% 1,000 ML IV SCH ×2 (09:00→23:03)
--- NOTE | 2018-12-29 09:28 | XR ---
EXAMINATION TYPE: XR chest 1V DATE OF EXAM: 12/29/2018 COMPARISON: 12/28/2018 HISTORY: Cough TECHNIQUE: Single frontal view of the chest is obtained. FINDINGS: There is left-sided consolidation and pleural effusion. Cardiomegaly and postsurgical miller ges are noted and is arthropathy of the shoulders. No pneumothorax. Subsegmental right basilar change s noted. Atherosclerotic change of the aorta. IMPRESSION: 1. Bibasilar consolidation greater on the left with small left pleural effusion.
--- NOTE | 2018-12-29 10:56 | P.PN ---
Subjective Progress Note Date: 12/29/18 Principal diagnosis: New-onset atrial flutter, acute kidney injury, right lower quadrant abdominal pain. 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 The patient is currently sitting up in bed in no acute distress. He remains in atrial flutter with heart rate in the low 100s, currently on heparin IV and oral amiodarone. Does still complain of the same type of abdominal pain, worse on the right side with palpation. He is able to take deep breaths without increase in pain. He has had no nausea or emesis. He is tolerating some clear liquids. He does admit to episodes of diarrhea. He remains afebrile with no leukocytosis and his lactic acid is 1.1 this morning. Objective - Vital Signs Vital signs: Vital Signs Temp 98.5 F 12/29/18 08:00 Pulse 73 12/29/18 10:00 Resp 16 12/29/18 10:00 BP 111/57 12/29/18 10:00 Pulse Ox 97 12/29/18 10:00 Intake & Output 12/28/18 12/29/18 12/29/18 18:59 06:59 18:59 Intake Total 2260 1082.8 340 Output Total 1999 1250 650 Balance 260 -167.2 -310 Weight 127.3 kg Intake: IV 1060 1010 340 Magnesium Sulfate-D5w Pmx 100 1 gm In Dextrose/Water 1 100ml.bag @ 100 mls/hr IVPB Q1H [facility] Rx#: [id number] Sodium Chloride 0.9% 1, 960 960 240 000 ml @ 80 mls/hr IV . [id number] [facility] Rx#:[id number] cefTRIAXone 1 gm In 50 100 Sodium Chloride 0.9% 50 ml @ 100 mls/hr IVPB Q24HR [facility] Rx#:[id number] Intake, IV Titration 72.8 Amount Heparin Sod,Pork in 0.45% 72.8 NaCl 25,000 unit In 0.45 % NaCl 1 250ml.bag @ 6.27 UNITS/KG/HR 8 mls/hr IV .Q24H [facility] Rx#:[id number] Oral 1200 Output: Urine 2000 1250 650 Other: # Voids 1 # Bowel Movements 1 1 - Constitutional General appearance: Present: cooperative, morbidly obese, no acute distress - Respiratory Details: Lungs sounds diminished bilaterally. Respirations even, nonlabored. Currently on room air with oxygen saturation 95%. Able to achieve 1000 mL on his incentive spirometry. Strong cough. - Cardiovascular Details: S1, S2 present. Regular, occasionally irregular rate and rhythm, atrial flutter on telemetry. Sternum stable. Palpable peripheral pulses bilaterally. Trace bilateral lower extremity edema present. No calf pain or tenderness noted. Heart hugger in place with patient demonstrating appropriate use. Antiembolism stockings, SCDs present. - Gastrointestinal Gastrointestinal Comment(s): Abdomen soft, tender to palpation right lower quadrant, nondistended, obese. Active bowel sounds present 4 quadrants. Tolerating clear liquids. Positive flatus, positive diarrhea per patient. - Genitourinary Genitourinary Comment(s): Continues to void clear, yellow urine. Output overnight 650 mL. - Integumentary Integumentary Comment(s): Skin is warm and dry with evidence of good perfusion. Anterior chest incision well approximated and covered with Dermabond dressing. Right lower extremity EVH site well approximated. - Neurologic Neurologic: Present: CNII-XII intact - Musculoskeletal Musculoskeletal: Present: strength equal bilaterally - Psychiatric Psychiatric: Present: A&O x's 3, appropriate affect, intact judgment & insight - Allied health notes Allied health notes reviewed: nursing - Labs CBC & Chem 7: 12/29/18 03:07 12/29/18 03:07 Labs: Abnormal Lab Results - Last 24 Hours (Table) 12/28/18 12/28/18 12/28/18 Range/Units 10:45 11:42 14:44 RBC (4.30-5.90) m/uL Hgb (13.0-17.5) gm/dL Hct (39.0-53.0) % RDW (11.5-15.5) % Plt Count (150-450) k/uL APTT (22.0-30.0) sec Chloride (98-107) mmol/L Creatinine (0.66-1.25) mg/dL Glucose (74-99) mg/dL POC Glucose (mg/dL) 144 H (75-99) mg/dL Plasma Lactic Acid Philip 3.2 H* 2.1 H* (0.7-2.0) mmol/L Magnesium (1.6-2.3) mg/dL 12/28/18 12/28/18 12/28/18 Range/Units 16:47 18:44 20:47 RBC (4.30-5.90) m/uL Hgb (13.0-17.5) gm/dL Hct (39.0-53.0) % RDW (11.5-15.5) % Plt Count (150-450) k/uL APTT 38.8 H (22.0-30.0) sec Chloride (98-107) mmol/L Creatinine (0.66-1.25) mg/dL Glucose (74-99) mg/dL POC Glucose (mg/dL) 151 H 139 H (75-99) mg/dL Plasma Lactic Acid Philip (0.7-2.0) mmol/L Magnesium (1.6-2.3) mg/dL 12/28/18 12/29/18 12/29/18 Range/Units 23:24 03:07 03:07 RBC 2.81 L (4.30-5.90) m/uL Hgb 8.9 L (13.0-17.5) gm/dL Hct 27.3 L (39.0-53.0) % RDW 15.8 H (11.5-15.5) % Plt Count 141 L (150-450) k/uL APTT (22.0-30.0) sec Chloride 109 H (98-107) mmol/L Creatinine 1.44 H (0.66-1.25) mg/dL Glucose 150 H (74-99) mg/dL POC Glucose (mg/dL) 159 H (75-99) mg/dL Plasma Lactic Acid Philip (0.7-2.0) mmol/L Magnesium 2.4 H (1.6-2.3) mg/dL 12/29/18 12/29/18 Range/Units 03:07 05:46 RBC (4.30-5.90) m/uL Hgb (13.0-17.5) gm/dL Hct (39.0-53.0) % RDW (11.5-15.5) % Plt Count (150-450) k/uL APTT 57.1 H (22.0-30.0) sec Chloride (98-107) mmol/L Creatinine (0.66-1.25) mg/dL Glucose (74-99) mg/dL POC Glucose (mg/dL) 176 H (75-99) mg/dL Plasma Lactic Acid Philip (0.7-2.0) mmol/L Magnesium (1.6-2.3) mg/dL - Imaging and Cardiology Chest x-ray: report reviewed, image reviewed Assessment and Plan Assessment: 1. New-onset atrial flutter 2. Acute kidney injury, resolving 3. Right lower quadrant abdominal pain 4. History of aortic stenosis status post bioprosthetic aortic valve replacement 5. History of coronary artery disease status post bypass surgery 6. Postoperative atrial fibrillation, in normal sinus rhythm upon discharge from the hospital 7. Hypertension 8. Hyperlipidemia 9. Morbid obesity 10. Diabetes mellitus with recent hemoglobin A1c 6.3% 11. Previous tobacco dependence, mild COPD with recent FEV1 56% of predicted 12. 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 Continue amiodarone, IV heparin. CARMELA, cardioversion per cardiology. 2. Continue aspirin, statin, beta paul therapy. 3. Continue antibiotics, diet per general surgery. Appreciate general surgery recommendations. 4. Avoid nephrotoxins. Okay for DARWIN inhibitor per nephrology. 5. Encourage use of incentive spirometer. 6. Will monitor daily labs and x-rays. 7. Pain control with current medication regimen. 8. GI prophylaxis with Protonix, DVT prophylaxis with IV heparin, SCDs. 9. Increase activity, ambulate as tolerated. PT/OT following. 10. May transfer out of ICU to cardiac stepdown unit from our standpoint. 11. More recommendations to follow. Time with Patient: Greater than 30
--- NOTE | 2018-12-29 11:22 | P.PN ---
Subjective Patient is seen in follow-up for acute kidney injury. Patient's basic creatinine is 1 and peaked at 2.09 this admission. It is relatively stable at 1.44 today. He's currently maintained on normal saline at 80 mL an hour. Continues to have diarrhea every 2-3 hours. Admits to good urine output. Denies chest pain or shortness of breath. Vital signs are stable. General: The patient appeared well nourished and normally developed. HEENT: Head exam is unremarkable. Neck is without jugular venous distension. LUNGS: Lungs are clear to auscultation and percussion. Breath sounds decreased. HEART: Rate and Rhythm are regular. First and second heart sounds normal. No murmurs, rubs or gallops. ABDOMEN: Abdominal exam reveals normal bowel sounds. Non-tender and non- distended. No evidence of peritonitis. EXTREMITITES: No clubbing, cyanosis, or edema. Objective - Vital Signs Vital signs: Vital Signs Temp 98.5 F 12/29/18 08:00 Pulse 73 12/29/18 11:05 Resp 16 12/29/18 11:00 BP 111/57 12/29/18 10:00 Pulse Ox 100 12/29/18 11:00 Intake & Output 12/28/18 12/29/18 12/29/18 18:59 06:59 18:59 Intake Total 2260 1082.8 420 Output Total 1999 1250 850 Balance 260 -167.2 -430 Weight 127.3 kg Intake: IV 1060 1010 420 Magnesium Sulfate-D5w Pmx 100 1 gm In Dextrose/Water 1 100ml.bag @ 100 mls/hr IVPB Q1H [facility] Rx#: [id number] Sodium Chloride 0.9% 1, 960 960 320 000 ml @ 80 mls/hr IV . [id number] [facility] Rx#:[id number] cefTRIAXone 1 gm In 50 100 Sodium Chloride 0.9% 50 ml @ 100 mls/hr IVPB Q24HR [facility] Rx#:[id number] Intake, IV Titration 72.8 Amount Heparin Sod,Pork in 0.45% 72.8 NaCl 25,000 unit In 0.45 % NaCl 1 250ml.bag @ 6.27 UNITS/KG/HR 8 mls/hr IV .Q24H [facility] Rx#:[id number] Oral 1200 Output: Urine 2000 1250 850 Other: # Voids 1 # Bowel Movements 1 1 - Labs CBC & Chem 7: 12/29/18 03:07 12/29/18 03:07 Labs: Abnormal Lab Results - Last 24 Hours (Table) 12/28/18 12/28/18 12/28/18 Range/Units 10:45 11:42 14:44 RBC (4.30-5.90) m/uL Hgb (13.0-17.5) gm/dL Hct (39.0-53.0) % RDW (11.5-15.5) % Plt Count (150-450) k/uL APTT (22.0-30.0) sec Chloride (98-107) mmol/L Creatinine (0.66-1.25) mg/dL Glucose (74-99) mg/dL POC Glucose (mg/dL) 144 H (75-99) mg/dL Plasma Lactic Acid Philip 3.2 H* 2.1 H* (0.7-2.0) mmol/L Magnesium (1.6-2.3) mg/dL 12/28/18 12/28/18 12/28/18 Range/Units 16:47 18:44 20:47 RBC (4.30-5.90) m/uL Hgb (13.0-17.5) gm/dL Hct (39.0-53.0) % RDW (11.5-15.5) % Plt Count (150-450) k/uL APTT 38.8 H (22.0-30.0) sec Chloride (98-107) mmol/L Creatinine (0.66-1.25) mg/dL Glucose (74-99) mg/dL POC Glucose (mg/dL) 151 H 139 H (75-99) mg/dL Plasma Lactic Acid Philip (0.7-2.0) mmol/L Magnesium (1.6-2.3) mg/dL 12/28/18 12/29/18 12/29/18 Range/Units 23:24 03:07 03:07 RBC 2.81 L (4.30-5.90) m/uL Hgb 8.9 L (13.0-17.5) gm/dL Hct 27.3 L (39.0-53.0) % RDW 15.8 H (11.5-15.5) % Plt Count 141 L (150-450) k/uL APTT (22.0-30.0) sec Chloride 109 H (98-107) mmol/L Creatinine 1.44 H (0.66-1.25) mg/dL Glucose 150 H (74-99) mg/dL POC Glucose (mg/dL) 159 H (75-99) mg/dL Plasma Lactic Acid Philip (0.7-2.0) mmol/L Magnesium 2.4 H (1.6-2.3) mg/dL 12/29/18 12/29/18 Range/Units 03:07 05:46 RBC (4.30-5.90) m/uL Hgb (13.0-17.5) gm/dL Hct (39.0-53.0) % RDW (11.5-15.5) % Plt Count (150-450) k/uL APTT 57.1 H (22.0-30.0) sec Chloride (98-107) mmol/L Creatinine (0.66-1.25) mg/dL Glucose (74-99) mg/dL POC Glucose (mg/dL) 176 H (75-99) mg/dL Plasma Lactic Acid Philip (0.7-2.0) mmol/L Magnesium (1.6-2.3) mg/dL Assessment and Plan Plan: Assessment: 1. Acute kidney injury secondary to ATN secondary to intravascular volume depletion from diarrhea as well as hemodynamic instability. Creatinine 1.44 today. Baseline creatinine near 1. No evidence of hydronephrosis or infarct noted on CAT scan of the abdomen and pelvis. 2. Diarrhea. Possibly ischemic colitis from microvascular emboli. Maintain on antibiotics. Gen. surgery following. 3. Atrial flutter. Maintain on amiodarone and IV heparin. 4. Insulin-dependent diabetes mellitus. 5. Anemia. Rule out iron deficiency. Plan: Maintain normal saline at 80 mL an hour. Avoid nephrotoxins. Continue to hold DARWIN inhibitor for now. Check iron studies.
[2018-12-29 12:39] LABS: Glucose,Whole Blood 174 mg/dL (75-99)
[2018-12-29] MEDS: HEPARIN SOD,PORK IN 0.45% NACL 25,000 UNIT in 0.45% NACL 1 250ML.BAG IV SCH (12:53)
--- NOTE | 2018-12-29 14:50 | P.PN ---
Subjective Progress Note Date: 12/29/18 68-year-old male one of Dr. Graham patient who was admitted to the hospital 12/02/2018 to 12/09/2018 for elective aortic valve placement and one-vessel CABG which is reverse saphenous vein graft to the right coronary artery in by Dr. Irby cardiothoracic. Patient was in the hospital for a few days developed to have A. fib with RVR was started on amiodarone and was back in sinus rhythm. Pulse rate is well-controlled. Patient was transferred to [facility] on leg for rehab. Was seen Dr. Washington today at [facility] on the [place] and found to be in A. fib with RVR pulse rate running about 150 beats per minutes. Also patient was dehydrated dry having hypotension was sent to the emergency department at [facility] where was seen and evaluated found to be in A. fib with RVR with pulse rate rapid. Cardiothoracic and cardiology were inform patient also found to be in acute kidney failure with acute kidney injury most likely ATN creatinine is up to 2.08 from 1.0. Patient was started on gentle hydration Cardizem drip and heparin drip and was admitted to the hospital with above problem. 12/27: Patient is resting in bed without any acute distress. Patient continues to be in A. fib with RVR pulse rate running about 120. Patient denies any difficulty breathing or shortness of breath at this time. Incisional site remains clean and dry. Patient has no new concerns or complaints at this time. WC 4.8, hemoglobin 10.2, platelets 15.7, sodium 140, potassium 5.3, chloride 105, BUN is 32 creatinine 1.81, glucose 200. 12/28: Through the night patient experienced severe abdominal pain. Patient was transferred to the intensive care unit for monitoring. CAT of the abdomen with and without contrast was performed. CT showed small bilateral pleural effusion , compressive atelectasis adjacent to the left pleural effusion, cholelithiasis , diffuse thickening through the cecum and proximal ascending colon. Patient continues to have right lower quadrant abdominal pain and tenderness. Patient denies any nausea or vomiting. Patient continues to be in A. fib with RVR pulse rate running in 115. 12/29: Patient has been evaluated by Dr. Monahan regarding short segment of colitis likely ischemic from microvascular emboli. Recommend continuing anticoagulation and begin liquid diet, empiric antibiotics plan is for conservative management. He is currently on Rocephin and Flagyl. Patient is also followed by cardiology. He is currently on heparin drip and oral amiodarone. conveyor monitor is atrial flutter. Heart rate is running 95-108, blood pressure 92/60, pulse ox 97% on room air. He has been afebrile. White count is normal some 0.4, hemoglobin 8.9, platelet count 141, creatinine 1.44. Capillary blood glucose running between 150-176. Repeat chest x-ray reveals bibasilar consolidation greater on the left with small left pleural effusion. Echocardiogram reveals EF of 50-55% with moderate concentric left ventricle hypertrophy, mild mitral regurgitation, mild tricuspid regurgitation, small generalized pericardial effusion. Patient is also followed by consultants: nephrology, pulmonary medicine, cardiothoracic surgery. Review of Systems CONSTITUTIONAL: Well-developed no acute respiratory distress. No fever no chills. EYES: No icterus sclerae, no conjunctivitis. EARS, NOSE, MOUTH, THROAT, and FACE: No sore throat, lymphadenopathy, carotid bruits or deformity. RESPIRATORY: Mild shortness of breath no wheezes CARDIOVASCULAR: Positive chest wall pain, positive palpitation and PND GASTROINTESTINAL: Reports right lower quadrant Abd pain, Nausea or vomiting, no Diarrhea or constipation, No GI Bleed, no distention or masses. GENITOURINARY: Negative for Hematuria or UTI, no kidney stones. INTEGUMENT/BREAST: Negative for any muscular injury with mild osteoarthritis.. HEMATOLOGIC/LYMPHATIC: Negative for bleed or purpura. MUSCULOSKELTAL: Negative for Myalgia or arthralgia. NEURLOGICAL: No LOC, Sz or syncope, blurred vision dizziness or abnormality.. BEHAVIORAL/PSYCH: Negative. ENDOCRINE: Negative. Objective - Vital Signs Vital signs: Vital Signs Temp 98.3 F 12/29/18 04:00 Pulse 108 H 12/29/18 07:26 Resp 15 12/29/18 07:00 BP 92/60 12/29/18 07:00 Pulse Ox 97 12/29/18 07:16 Intake & Output 12/28/18 12/29/18 12/29/18 18:59 06:59 18:59 Intake Total 2260 1082.8 80 Output Total 1999 1250 450 Balance 260 -167.2 -370 Weight 127.3 kg Intake: IV 1060 1010 80 Magnesium Sulfate-D5w Pmx 100 1 gm In Dextrose/Water 1 100ml.bag @ 100 mls/hr IVPB Q1H [facility] Rx#: [id number] Sodium Chloride 0.9% 1, 960 960 80 000 ml @ 80 mls/hr IV . [id number] [facility] Rx#:[id number] cefTRIAXone 1 gm In 50 Sodium Chloride 0.9% 50 ml @ 100 mls/hr IVPB Q24HR [facility] Rx#:[id number] Intake, IV Titration 72.8 Amount Heparin Sod,Pork in 0.45% 72.8 NaCl 25,000 unit In 0.45 % NaCl 1 250ml.bag @ 6.27 UNITS/KG/HR 8 mls/hr IV .Q24H [facility] Rx#:[id number] Oral 1200 Output: Urine 2000 1250 450 Other: # Voids 1 # Bowel Movements 1 1 - Exam General Appearance: Alert, cooperative, no distress, appears stated age. Resting in ICU bed. Neck HEENT: Supple, no lymphadenopathy, no thyroid enlargement, no carotid bruits. Lungs: Decreased breath sound bilaterally specially in the left side with fine rhonchi no wheezes. Chest Wall: Decrease expansion with deep inspiration no tenderness and no deformity was found on exam, no costochondral pain or discomfort. Incision in the mid sternum area looks good with no sign of infection or induration or redness. Heart: IRRegular rate and rhythm, S1, S2 normal, positive S3, positive aortic valve click no murmur, rub or gallop. Back: Symmetric, no curvature, ROM normal, no CVA tenderness. Abdomen: Soft, tender right lower quadrant, no rebound tenderness, bowel sounds active all four quadrants, no masses, no organomegaly. Extremities: Trace edema decreased pulse, positive mild osteoarthritis. Pulses: 2+ and symmetric. Skin: Skin color, texture, tugor normal, no rashes or lesions. Neurologic: Alert oriented x3 cranial nerves II through XII intact, no motor deficit, no abnormal balance or gait. - Labs CBC & Chem 7: 12/29/18 03:07 12/29/18 03:07 Labs: Abnormal Lab Results - Last 24 Hours (Table) 12/28/18 12/28/18 12/28/18 Range/Units 10:45 11:42 14:44 RBC (4.30-5.90) m/uL Hgb (13.0-17.5) gm/dL Hct (39.0-53.0) % RDW (11.5-15.5) % Plt Count (150-450) k/uL APTT (22.0-30.0) sec Chloride (98-107) mmol/L Creatinine (0.66-1.25) mg/dL Glucose (74-99) mg/dL POC Glucose (mg/dL) 144 H (75-99) mg/dL Plasma Lactic Acid Philip 3.2 H* 2.1 H* (0.7-2.0) mmol/L Magnesium (1.6-2.3) mg/dL 12/28/18 12/28/18 12/28/18 Range/Units 16:47 18:44 20:47 RBC (4.30-5.90) m/uL Hgb (13.0-17.5) gm/dL Hct (39.0-53.0) % RDW (11.5-15.5) % Plt Count (150-450) k/uL APTT 38.8 H (22.0-30.0) sec Chloride (98-107) mmol/L Creatinine (0.66-1.25) mg/dL Glucose (74-99) mg/dL POC Glucose (mg/dL) 151 H 139 H (75-99) mg/dL Plasma Lactic Acid Philip (0.7-2.0) mmol/L Magnesium (1.6-2.3) mg/dL 12/28/18 12/29/18 12/29/18 Range/Units 23:24 03:07 03:07 RBC 2.81 L (4.30-5.90) m/uL Hgb 8.9 L (13.0-17.5) gm/dL Hct 27.3 L (39.0-53.0) % RDW 15.8 H (11.5-15.5) % Plt Count 141 L (150-450) k/uL APTT (22.0-30.0) sec Chloride 109 H (98-107) mmol/L Creatinine 1.44 H (0.66-1.25) mg/dL Glucose 150 H (74-99) mg/dL POC Glucose (mg/dL) 159 H (75-99) mg/dL Plasma Lactic Acid Philip (0.7-2.0) mmol/L Magnesium 2.4 H (1.6-2.3) mg/dL 12/29/18 12/29/18 Range/Units 03:07 05:46 RBC (4.30-5.90) m/uL Hgb (13.0-17.5) gm/dL Hct (39.0-53.0) % RDW (11.5-15.5) % Plt Count (150-450) k/uL APTT 57.1 H (22.0-30.0) sec Chloride (98-107) mmol/L Creatinine (0.66-1.25) mg/dL Glucose (74-99) mg/dL POC Glucose (mg/dL) 176 H (75-99) mg/dL Plasma Lactic Acid Philip (0.7-2.0) mmol/L Magnesium (1.6-2.3) mg/dL Assessment and Plan Plan: 1 A. flutter with RVR and underlying chronic atrial flutter with brief cardiac arrest recovered. Continue amiodarone 200 mg 3 times daily, heparin drip. Cardiology consult appreciated 2 Acute kidney injury with most likely ATN with acute kidney failure decrease GFR significantly avoid nephrotoxic agent, consult with nephrology appreciated. 3 post aortic valve placement: Successful surgery so far with no major complication. Continue incentive spirometery, consult with cardiothoracic surgery appreciated 4 post one-vessel CABG was reverse saphenous to the RCI stable so far. 5 type 2 diabetes: Has been on Humalog and long acting insulin resume both continue Accu-Chek with sliding scales coverage. 6 Hypertension: Continue metoprolol and amiodarone. 7 Hyperlipidemia: Continue patient on atorvastatin 40 mg daily. 8. Recurrent depression. Continue Celexa 20 mg daily. 9. COPD: Continue patient on albuterol/ipratropium nebulizer continue O2 try to keep pulse ox above 90 percentile. 10. Ischemic colitis: Surgical consult appreciated, plan for conservative management. Continue Flagyl 500 grams every 8 hours IV piggyback, Rocephin 1 g IV piggyback every 24 hours. Clear liquid diet 11 GI prophylaxis/GERD: Continue patient on pantoprazole 40 mg daily. 12 DVT prophylaxis: Patient will be started on heparin drip for now and senior living anticoagulation will be needed. 13. Chronic pain syndrome. Continue Lyrica 100 mg twice daily. 14. History of bilateral hip replacements and postop infections requiring chronic suppressive antibiotic therapy with doxycycline under the care of Dr. Ricci. 15. Chronic kidney disease stage II. CODE STATUS: Full code. Discharge plan: To be determined Impression and plan of care have been directed as dictated by the signing physician. Bryanna Coker nurse practitioner acting as scribe for signing physician.
--- NOTE | 2018-12-29 14:51 | P.PN ---
Subjective Progress Note Date: 12/29/18 Principal diagnosis: Ischemic colitis Patient says his pain is improved from yesterday. No nausea or vomiting. He is passing flatus. He is hungry. Tolerating liquids. Lactic acid is normalized. White blood cell count normal. Objective - Vital Signs Vital signs: Vital Signs Temp 97.8 F 12/29/18 12:00 Pulse 110 H 12/29/18 14:00 Resp 18 12/29/18 14:00 BP 104/71 12/29/18 14:00 Pulse Ox 97 12/29/18 14:00 Intake & Output 12/28/18 12/29/18 12/29/18 18:59 06:59 18:59 Intake Total 2260 1082.8 837.2 Output Total 1999 1250 1250 Balance 260 -167.2 -412.8 Weight 127.3 kg Intake: IV 1060 1010 660 Magnesium Sulfate-D5w Pmx 100 1 gm In Dextrose/Water 1 100ml.bag @ 100 mls/hr IVPB Q1H [facility] Rx#: [id number] Sodium Chloride 0.9% 1, 960 960 560 000 ml @ 80 mls/hr IV . [id number] [facility] Rx#:[id number] cefTRIAXone 1 gm In 50 100 Sodium Chloride 0.9% 50 ml @ 100 mls/hr IVPB Q24HR [facility] Rx#:[id number] Intake, IV Titration 72.8 177.2 Amount Heparin Sod,Pork in 0.45% 72.8 177.2 NaCl 25,000 unit In 0.45 % NaCl 1 250ml.bag @ 6.27 UNITS/KG/HR 8 mls/hr IV .Q24H [facility] Rx#:[id number] Oral 1200 Output: Urine 2000 1250 1250 Other: # Voids 1 # Bowel Movements 1 1 - Exam Abdomen: Soft, nondistended, mild right lower quadrant tenderness slightly improved - Labs CBC & Chem 7: 12/29/18 03:07 12/29/18 03:07 Labs: Abnormal Lab Results - Last 24 Hours (Table) 12/28/18 12/28/18 12/28/18 Range/Units 14:44 16:47 18:44 RBC (4.30-5.90) m/uL Hgb (13.0-17.5) gm/dL Hct (39.0-53.0) % RDW (11.5-15.5) % Plt Count (150-450) k/uL APTT 38.8 H (22.0-30.0) sec Chloride (98-107) mmol/L Creatinine (0.66-1.25) mg/dL Glucose (74-99) mg/dL POC Glucose (mg/dL) 151 H (75-99) mg/dL Plasma Lactic Acid Philip 2.1 H* (0.7-2.0) mmol/L Magnesium (1.6-2.3) mg/dL 12/28/18 12/28/18 12/29/18 Range/Units 20:47 23:24 03:07 RBC (4.30-5.90) m/uL Hgb (13.0-17.5) gm/dL Hct (39.0-53.0) % RDW (11.5-15.5) % Plt Count (150-450) k/uL APTT (22.0-30.0) sec Chloride 109 H (98-107) mmol/L Creatinine 1.44 H (0.66-1.25) mg/dL Glucose 150 H (74-99) mg/dL POC Glucose (mg/dL) 139 H 159 H (75-99) mg/dL Plasma Lactic Acid Philip (0.7-2.0) mmol/L Magnesium 2.4 H (1.6-2.3) mg/dL 12/29/18 12/29/18 12/29/18 Range/Units 03:07 03:07 05:46 RBC 2.81 L (4.30-5.90) m/uL Hgb 8.9 L (13.0-17.5) gm/dL Hct 27.3 L (39.0-53.0) % RDW 15.8 H (11.5-15.5) % Plt Count 141 L (150-450) k/uL APTT 57.1 H (22.0-30.0) sec Chloride (98-107) mmol/L Creatinine (0.66-1.25) mg/dL Glucose (74-99) mg/dL POC Glucose (mg/dL) 176 H (75-99) mg/dL Plasma Lactic Acid Philip (0.7-2.0) mmol/L Magnesium (1.6-2.3) mg/dL 12/29/18 Range/Units 12:37 RBC (4.30-5.90) m/uL Hgb (13.0-17.5) gm/dL Hct (39.0-53.0) % RDW (11.5-15.5) % Plt Count (150-450) k/uL APTT (22.0-30.0) sec Chloride (98-107) mmol/L Creatinine (0.66-1.25) mg/dL Glucose (74-99) mg/dL POC Glucose (mg/dL) 174 H (75-99) mg/dL Plasma Lactic Acid Philip (0.7-2.0) mmol/L Magnesium (1.6-2.3) mg/dL Assessment and Plan (1) Acute ischemic colitis Narrative/Plan: Will gradually advance diet to full liquids. Continue anticoagulation. Continue empiric antibiotics. Current Visit: Yes Status: Acute Code(s): K55.039 - ACUTE ISCHEMIA OF LARGE INTESTINE, EXTENT UNSPECIFIED SNOMED Code(s): 79230241
--- NOTE | 2018-12-29 15:06 | P.PN ---
Subjective Progress Note Date: 12/29/18 This is a 68-year-old male patient with known history of coronary artery disease and the patient underwent a single-vessel bypass surgery and aortic valve replacement on 12/02/2018 in our institution. The patient is also known to have hypertension and hyperlipidemia and diabetes mellitus and peripheral neuropathy. Is a former smoker. I was involved in this patient's postoperative care. The patient did well. The patient was discharged to [facility] on [facility] on on 12/09/2018. Note that the patient's aortic valve are present was done for severe aortic stenosis. He has some background COPD with an FEV1 of 56% of predicted. He is obese and his BMI is at 38.3. The patient did develop atrial fibrillation following his surgery. He did convert to normal sinus rhythm after he was given amiodarone. Upon discharge, he was given amiodarone 400 mg by mouth twice a day in addition to aspirin and metoprolol 50 mg by mouth twice a day. He was also given Lasix 40 mg by mouth daily. He was asked to continue Levemir insulin 40 units at bedtime and 20 units in the morning in addition to DuoNeb nebulized treatments on the clock. His regimen also includes a combination of aspirin and Plavix. He has also history of herpetic infection for which she is on Valtrex. The patient came in to the emergency department after he was found by his primary care physician to be in atrial fibrillation/flutter with rapid ventricular response. The patient was initially resting comfortably in his bed and he was not having any significant distress. He denies having any symptoms of chest pain or shortness of breath or dizziness. He stated that his heart was racing. In the emergency department, the patient was also found to be acute kidney injury. The creatinine at time of admission was 2.09 knowing that time of the chest creatinine was completely within normal limits. His current creatinine is at 1.8. The patient was initially admitted to selective unit where he was started on amiodarone bolus and while the bolus was infusing the patient went unresponsive. According to the rhythm strips, the patient had a positive around 5 seconds and he was briefly given CPR. He did wake up within a few seconds. The patient had a bowel movement following that and he also felt diaphoretic. He got moved to the intensive care unit. His current rhythm is a flutter with a rate of 117-120. He is on no amiodarone drip. He is taking metoprolol the dose of which was modified and the patient is currently taking 75 mg by mouth twice a day. He is also started on long-term anticoagulation with Eliquis. His sternum is stable clean and intact. He has not voided yet. He is receiving IV fluids in order of 80 mL an hour and he will be receiving IV fluid bolus as recommended by cardiology. Echocardiogram was done and the patient has a preserved LV function with an ejection fraction of 50-55% and there is no other valvular abnormalities. The aortic valve was not well visualized and the peak gradient across the valve was 11 mmHg and it is a normally functioning bioprosthetic valve. The right ventricular systolic pressure was not measured as there was no tricuspid regurgitation jet. On today's evaluation of 12/28/2018, the patient remains in atrial flutter. The rate is under better control and the patient is less tachycardic. He briefly went into a sinus rhythm yesterday however subsequently went back into a flutter rhythm. No chest pain. No palpitation. No shortness of breath. He did complain of right lower quadrant pain today. On examination he had direct and rebound tenderness. Based on that, he was sent for a stat CAT scan of the abdomen and pelvis that showed evidence of cecal inflammation. The area in the cecum was quite inflamed and swollen and there was diffuse thickening through the cecum and proximal ascending colon. For this reason, the patient was started on a combination of IV Rocephin and Flagyl. Gen. surgery was consulted. The patient likely had an embolic phenomena as the patient went into atrial flutter and he could've embolized to his bowel. Ischemic colitis, hypotension is another possibility. In any rate, the patient was seen by general surgery. He is not having any nausea or vomiting. His abdominal pain is around 2 out of 10 in severity. No altered mentation. His lactic acid level came back at 3.2. He is on IV fluids. He was given another bolus yesterday and his creatinine is improving and is down to 1.38. He is back on oral amiodarone 200 mg by mouth 3 times a day. He is also on metoprolol 75 mg by mouth twice a day and his heart rate is under much better control and today' s evaluation. On today's evaluation of 12/29/2018, the patient remains in a slower rate atrial flutter. He is doing well per no chest pain no shortness of breath. He still having right lower quadrant pain and would believe that the patient embolic phenomena causing acute inflammation of the cecum/ascending colon. He is on a combination of Rocephin and Flagyl. He is passing flatus per no signs of any bowel obstruction. No nausea or vomiting. He is tolerating clear liquid diet. His white cell count is at 7.4. His BUN is at 20 with a creatinine of 1.4. He remains on IV heparin and his PTT is therapeutic at this point in time. No fever. No chills. No chest pain. No shortness of breath. Resting comfortably in bed. Surgeries on the case regarding the abdominal findings. Objective - Vital Signs Vital signs: Vital Signs Temp 97.8 F 12/29/18 12:00 Pulse 110 H 12/29/18 14:00 Resp 18 12/29/18 14:00 BP 104/71 12/29/18 14:00 Pulse Ox 97 12/29/18 14:00 Intake & Output 12/28/18 12/29/18 12/29/18 18:59 06:59 18:59 Intake Total 2260 1082.8 837.2 Output Total 1999 1250 1850 Balance 260 -167.2 -1012.8 Weight 127.3 kg Intake: IV 1060 1010 660 Magnesium Sulfate-D5w Pmx 100 1 gm In Dextrose/Water 1 100ml.bag @ 100 mls/hr IVPB Q1H GA[facility]ANO Rx#: [id number] Sodium Chloride 0.9% 1, 960 960 560 000 ml @ 80 mls/hr IV . [id number] GA[facility]ANO Rx#:[id number] cefTRIAXone 1 gm In 50 100 Sodium Chloride 0.9% 50 ml @ 100 mls/hr IVPB Q24HR GA[facility]ANO Rx#:[id number] Intake, IV Titration 72.8 177.2 Amount Heparin Sod,Pork in 0.45% 72.8 177.2 NaCl 25,000 unit In 0.45 % NaCl 1 250ml.bag @ 6.27 UNITS/KG/HR 8 mls/hr IV .Q24H GAETANO Rx#:[id number] Oral 1200 Output: Urine 1999 1250 1850 Other: # Voids 2 # Bowel Movements 1 1 - Exam GENERAL: This is a 68-year-old male in no apparent distress at the time of my examination. HEENT: Head is atraumatic, normocephalic. Pupils are equal, round. Sclerae anicteric. Conjunctivae are clear. Mucous membranes of the mouth are moist. Neck is supple. There is no jugular venous distention. No carotid bruit is heard. LUNGS: Clear to auscultation no wheezes, rales or rhonchi. No chest wall tenderness is noted on palpation or with deep breathing. HEART: Irregular rate and rhythm with systolic ejection murmur at the base, no rubs or gallops. S1 and S2 heard. Heart [address]. Sternal scar noted clean dry and intact. ABDOMEN: Soft, tender. Bowel sounds are heard. No organomegaly noted. The patient has direct tenderness in his right lower quadrant area. there is some rebound tenderness. No guarding. No ascites. Bowel sounds are hypoactive at the present.EXTREMITIES: No evidence of peripheral edema and no calf tenderness noted. VASCULAR: Radial and dorsalis pedis pulses palpated, no evidence of clubbing. NEUROLOGIC: Patient is awake, alert and oriented x3. - Labs CBC & Chem 7: 12/29/18 03:07 12/29/18 03:07 Labs: Abnormal Lab Results - Last 24 Hours (Table) 12/28/18 12/28/18 12/28/18 Range/Units 14:44 16:47 18:44 RBC (4.30-5.90) m/uL Hgb (13.0-17.5) gm/dL Hct (39.0-53.0) % RDW (11.5-15.5) % Plt Count (150-450) k/uL APTT 38.8 H (22.0-30.0) sec Chloride (98-107) mmol/L Creatinine (0.66-1.25) mg/dL Glucose (74-99) mg/dL POC Glucose (mg/dL) 151 H (75-99) mg/dL Plasma Lactic Acid Philip 2.1 H* (0.7-2.0) mmol/L Magnesium (1.6-2.3) mg/dL 12/28/18 12/28/18 12/29/18 Range/Units 20:47 23:24 03:07 RBC (4.30-5.90) m/uL Hgb (13.0-17.5) gm/dL Hct (39.0-53.0) % RDW (11.5-15.5) % Plt Count (150-450) k/uL APTT (22.0-30.0) sec Chloride 109 H (98-107) mmol/L Creatinine 1.44 H (0.66-1.25) mg/dL Glucose 150 H (74-99) mg/dL POC Glucose (mg/dL) 139 H 159 H (75-99) mg/dL Plasma Lactic Acid Philip (0.7-2.0) mmol/L Magnesium 2.4 H (1.6-2.3) mg/dL 12/29/18 12/29/18 12/29/18 Range/Units 03:07 03:07 05:46 RBC 2.81 L (4.30-5.90) m/uL Hgb 8.9 L (13.0-17.5) gm/dL Hct 27.3 L (39.0-53.0) % RDW 15.8 H (11.5-15.5) % Plt Count 141 L (150-450) k/uL APTT 57.1 H (22.0-30.0) sec Chloride (98-107) mmol/L Creatinine (0.66-1.25) mg/dL Glucose (74-99) mg/dL POC Glucose (mg/dL) 176 H (75-99) mg/dL Plasma Lactic Acid Philip (0.7-2.0) mmol/L Magnesium (1.6-2.3) mg/dL 12/29/18 Range/Units 12:37 RBC (4.30-5.90) m/uL Hgb (13.0-17.5) gm/dL Hct (39.0-53.0) % RDW (11.5-15.5) % Plt Count (150-450) k/uL APTT (22.0-30.0) sec Chloride (98-107) mmol/L Creatinine (0.66-1.25) mg/dL Glucose (74-99) mg/dL POC Glucose (mg/dL) 174 H (75-99) mg/dL Plasma Lactic Acid Philip (0.7-2.0) mmol/L Magnesium (1.6-2.3) mg/dL Assessment and Plan Plan: Assessment 1 atrial flutter with rapid ventricular response with a brief bout of cardiac cause/arrest from which the patient recovered and the patient is currently off amiodarone drip. Subsequently, the patient got moved to the intensive care unit. The patient was given amiodarone 200 mg 3 times a day in addition to metoprolol 75 mg twice a day and the rate is under better control. The patient remains in atrial flutter. 2 coronary artery disease with a recent single-vessel bypass surgery 3 acute right lower quadrant pain with evidence of diffuse bowel thickening involving the cecum and ascending colon, consider embolism to the got due to an underlying atrial flutter. Patient will be started on IV heparin. Patient's abdominal exam is unchanged compared to yesterday. No significant leukocytosis. No lactic acidosis. He still has some right lower quadrant pain. He is tolerating clear liquid diet. Passing flatus and bowel movements and there is no signs of bowel perforation or obstruction. 4 diabetes mellitus type 2 with peripheral neuropathy 5 hypertension history of currently slightly hypotensive receiving IV fluids 6 acute kidney injury, improving and the creatinine is down to 1.4 7 hyperlipidemia 8 COPD with a baseline FEV1 of 56% of predicted 9 history of depression 10 history of shingles currently on Valtrex for chronic suppression 11 history of right and left hip replacement with postoperative infections requiring antibiotics and the patient has been maintained on doxycycline outpatient basis 12 normocytic anemia Plan Keep the patient in intensive care unit. Continue same antibiotic coverage. Continue the patient IV heparin. Monitor the abdominal exam. Watch for any signs of perforation of bowel obstruction. Keep him on a clear liquid diet. Continued IV heparin. We'll continue to follow this case along with a general surgeon and the cardiothoracic surgeon. He is stable although his condition is guarded. We'll continue to follow.
[2018-12-29 17:45] LABS: Glucose,Whole Blood 161 mg/dL (75-99)
[2018-12-29 18:53] LABS: Iron Saturation 5.24 (15.00-50.00)
--- NOTE | 2018-12-29 20:46 | PN ---
PROGRESS NOTE This patient was admitted with atrial flutter with a rapid rate. The patient has possibly ischemic colitis. Hemodynamically remains stable. Patient has a heart rate now is in 80-90 per minute. Blood pressure is 104/71 mmHg. First and second heart sounds are heard. Lungs reveal clear to auscultation and percussion. There is a tenderness present in the right lower quadrant. Dr. Monahan is following as far as the ischemic colitis is concerned. The patient is currently on IV heparin. We will continue that. At present we will continue the patient on the rate control management. MMODL / IJN: [id number] /
[2018-12-29 21:03] LABS: Glucose,Whole Blood 153 mg/dL (75-99)
[2018-12-30 05:22] LABS: Basophils % (A) 0 %; Eosinophils # (A) 0.3 k/uL (0-0.7); Eosinophils % (A) 6 %; HCT 28.2 % (39.0-53.0); HGB 8.9 gm/dL (13.0-17.5); Hypochromasia Marked; Lymphocytes % (A) 23 %; MCHC 31.7 g/dL (31.0-37.0); MCV 97.7 fL (80.0-100.0); Mean Platelet Volume 6.9; Monocytes # (A) 0.2 k/uL (0-1.0); Monocytes % (A) 5 %; Neutrophils # (A) 2.9 k/uL (1.3-7.7); Neutrophils % (A) 64 %; Platelet Count 138 k/uL (150-450); Poikilocytosis Moderate; RBC 2.88 m/uL (4.30-5.90); RDW 15.7 % (11.5-15.5); WBC 4.6 k/uL (3.8-10.6)
[2018-12-30 05:43] LABS: Calcium 8.4 mg/dL (8.4-10.2); Magnesium 2.3 mg/dL (1.6-2.3); Phosphorus 3.7 mg/dL (2.5-4.5); Potassium 4.9 mmol/L (3.5-5.1)
[2018-12-30 06:51] LABS: Glucose,Whole Blood 182 mg/dL (75-99)
[2018-12-30] MEDS: INSULIN ASPART (NovoLOG) 100 UNIT/ML VIAL SQ SCH ×7 (06:56→20:44)
[2018-12-30] MEDS: IPRATROPIUM-ALBUTEROL 3 ML NEB INHALATION SCH ×4 (08:32→19:43)
--- NOTE | 2018-12-30 08:34 | XR ---
EXAMINATION TYPE: XR chest 1V DATE OF EXAM: 12/30/2018 COMPARISON: Prior chest x-ray 12/29/2018 HISTORY: Abnormal chest x-ray TECHNIQUE: frontal view of the chest is obtained on 2 images. FINDINGS: Patient is post median sternotomy and rotated. Heart remains enlarged. Basilar density per sists. No evident pneumothorax. There are cardiac leads. IMPRESSION: Essentially stable findings. Basilar atelectasis, there may be associated effusion. Hear t size may be accentuated by rotation.
[2018-12-30] MEDS: metroNIDAZOLE-NS PMX 500 MG in SALINE 1 100ML.BAG IVPB SCH ×2 (08:46→15:14)
--- NOTE | 2018-12-30 09:21 | P.PN ---
Subjective Progress Note Date: 12/30/18 Principal diagnosis: New-onset atrial flutter, acute kidney injury, right lower quadrant abdominal pain. 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 The patient is currently sitting up in bed in no acute distress. He remains in atrial flutter with heart rate in the low 100s although he did dip down into the 70s and 80s yesterday afternoon, currently on heparin IV and oral amiodarone. Does still complain of the same type of abdominal pain, worse on the right side with palpation. He is able to take deep breaths without increase in pain. He has had no nausea or emesis. He is tolerating full liquids. He does admit to episodes of diarrhea. He remains afebrile with no leukocytosis. No new complaints except he is anxious to get out of the hospital. Objective - Vital Signs Vital signs: Vital Signs Temp 98.2 F 12/30/18 04:00 Pulse 112 H 12/30/18 08:47 Resp 14 12/30/18 08:35 BP 100/64 12/30/18 04:00 Pulse Ox 97 12/30/18 04:00 Intake & Output 12/29/18 12/30/18 12/30/18 18:59 06:59 18:59 Intake Total 1077.2 720 Output Total 2601 1850 Balance -1523.8 -1130 Weight 126.4 kg Intake: IV 900 720 Sodium Chloride 0.9% 1, 800 720 000 ml @ 80 mls/hr IV . [id number] [facility]O Rx#:[id number] cefTRIAXone 1 gm In 100 Sodium Chloride 0.9% 50 ml @ 100 mls/hr IVPB Q24HR [facility] Rx#:[id number] Intake, IV Titration 177.2 Amount Heparin Sod,Pork in 0.45% 177.2 NaCl 25,000 unit In 0.45 % NaCl 1 250ml.bag @ 6.27 UNITS/KG/HR 8 mls/hr IV .Q24H GAETANO Rx#:[id number] Output: Urine 2600 1850 Urine/Stool Mix 1 Other: # Voids 1 # Bowel Movements 1 1 1 - Constitutional General appearance: Present: cooperative, morbidly obese, no acute distress - Respiratory Details: Lungs sounds diminished bilaterally. Respirations even, nonlabored. Currently on room air with oxygen saturation 97%. Able to achieve 1250 mL on his incentive spirometry. Strong cough. - Cardiovascular Details: S1, S2 present. Regular, occasionally irregular rate and rhythm, atrial flutter on telemetry. Sternum stable. Palpable peripheral pulses bilaterally. Trace bilateral lower extremity edema present. No calf pain or tenderness noted. Heart hugger in place with patient demonstrating appropriate use. Antiembolism stockings, SCDs present. - Gastrointestinal Gastrointestinal Comment(s): Abdomen soft, tender to palpation right lower quadrant, nondistended, obese. Active bowel sounds present 4 quadrants. Tolerating full liquids. Positive flatus, positive diarrhea per patient. - Genitourinary Genitourinary Comment(s): Continues to void clear, yellow urine. Output overnight 1300 mL. - Integumentary Integumentary Comment(s): Skin is warm and dry with evidence of good perfusion. Anterior chest incision well approximated and covered with Dermabond dressing. Right lower extremity EVH site well approximated. - Neurologic Neurologic: Present: CNII-XII intact - Musculoskeletal Musculoskeletal: Present: strength equal bilaterally - Psychiatric Psychiatric: Present: A&O x's 3, appropriate affect, intact judgment & insight - Allied health notes Allied health notes reviewed: nursing - Labs CBC & Chem 7: 12/30/18 04:28 12/30/18 04:28 Labs: Abnormal Lab Results - Last 24 Hours (Table) 12/29/18 12/29/18 12/29/18 Range/Units 03:07 12:37 17:44 RBC (4.30-5.90) m/uL Hgb (13.0-17.5) gm/dL Hct (39.0-53.0) % RDW (11.5-15.5) % Plt Count (150-450) k/uL APTT (22.0-30.0) sec Chloride (98-107) mmol/L Carbon Dioxide (22-30) mmol/L Glucose (74-99) mg/dL POC Glucose (mg/dL) 174 H 161 H (75-99) mg/dL Iron 15 L (65-175) ug/dL Iron Saturation 5.24 L (15.00-50.00) 12/29/18 12/30/18 12/30/18 Range/Units 21:01 04:28 04:28 RBC 2.88 L (4.30-5.90) m/uL Hgb 8.9 L (13.0-17.5) gm/dL Hct 28.2 L (39.0-53.0) % RDW 15.7 H (11.5-15.5) % Plt Count 138 L (150-450) k/uL APTT (22.0-30.0) sec Chloride 112 H (98-107) mmol/L Carbon Dioxide 20 L (22-30) mmol/L Glucose 163 H (74-99) mg/dL POC Glucose (mg/dL) 153 H (75-99) mg/dL Iron (65-175) ug/dL Iron Saturation (15.00-50.00) 12/30/18 12/30/18 Range/Units 04:28 06:50 RBC (4.30-5.90) m/uL Hgb (13.0-17.5) gm/dL Hct (39.0-53.0) % RDW (11.5-15.5) % Plt Count (150-450) k/uL APTT 51.3 H (22.0-30.0) sec Chloride (98-107) mmol/L Carbon Dioxide (22-30) mmol/L Glucose (74-99) mg/dL POC Glucose (mg/dL) 182 H (75-99) mg/dL Iron (65-175) ug/dL Iron Saturation (15.00-50.00) - Imaging and Cardiology Chest x-ray: report reviewed, image reviewed Assessment and Plan Assessment: 1. New-onset atrial flutter 2. Acute kidney injury, resolving 3. Right lower quadrant abdominal pain 4. History of aortic stenosis status post bioprosthetic aortic valve replacement 5. History of coronary artery disease status post bypass surgery 6. Postoperative atrial fibrillation, in normal sinus rhythm upon discharge from the hospital 7. Hypertension 8. Hyperlipidemia 9. Morbid obesity 10. Diabetes mellitus with recent hemoglobin A1c 6.3% 11. Previous tobacco dependence, mild COPD with recent FEV1 56% of predicted 12. 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 Continue amiodarone, IV heparin. Per Dr. Velez he will leave the patient anticoagulated for approximately 6 weeks and then attempt cardioversion. 2. Continue aspirin, statin, beta paul therapy. 3. Continue antibiotics, diet per general surgery. Appreciate general surgery recommendations. 4. Avoid nephrotoxins. 5. Encourage use of incentive spirometer. 6. Will monitor daily labs and x-rays. 7. Pain control with current medication regimen. 8. GI prophylaxis with Protonix, DVT prophylaxis with IV heparin, SCDs. 9. Increase activity, ambulate as tolerated. PT/OT following. Patient should be out of bed for all meals. 10. May transfer out of ICU to cardiac stepdown unit from our standpoint. 11. More recommendations to follow. Time with Patient: Greater than 30
[2018-12-30] MEDS: valACYclovir 500 MG TAB PO SCH (09:57)
[2018-12-30] MEDS: ATORVASTATIN 40 MG TAB PO SCH (09:58)
[2018-12-30] MEDS: HEPARIN SOD,PORK IN 0.45% NACL 25,000 UNIT in 0.45% NACL 1 250ML.BAG IV SCH (09:58)
[2018-12-30] MEDS: AMIODARONE 200 MG TAB PO SCH ×3 (09:58→20:55)
[2018-12-30] MEDS: ASPIRIN 81 MG PO SCH (09:58)
[2018-12-30] MEDS: PREGABALIN 100 MG CAP PO SCH ×2 (09:59→20:49)
[2018-12-30] MEDS: METOPROLOL TARTRATE 25 MG TAB PO SCH ×2 (09:59→20:49)
[2018-12-30] MEDS: CHOLECALCIFEROL 1,000 UNIT TAB PO SCH (09:59)
[2018-12-30] MEDS: CITALOPRAM HYDROBROMIDE 20 MG TAB PO SCH (09:59)
[2018-12-30] MEDS: INSULIN DETEMIR (LEVEMIR) 100 UNIT/ML SYR SQ SCH ×2 (09:59→20:50)
[2018-12-30] MEDS: PANTOPRAZOLE 40 MG TABLET PO SCH (09:59)
[2018-12-30] MEDS ORDERED: LOPERAMIDE 2 MG CAP PO STA (10:06)
--- NOTE | 2018-12-30 10:28 | P.PN ---
Subjective Patient is seen in follow-up for acute kidney injury. Patient's basic creatinine is 1 and peaked at 2.09 this admission. It is down to 1.21 today. He's currently maintained on normal saline at 80 mL an hour. Continues to have diarrhea every 2-3 hours. Admits to good urine output. Denies chest pain or shortness of breath. Vital signs are stable. General: The patient appeared well nourished and normally developed. HEENT: Head exam is unremarkable. Neck is without jugular venous distension. LUNGS: Lungs are clear to auscultation and percussion. Breath sounds decreased. HEART: Rate and Rhythm are regular. First and second heart sounds normal. No murmurs, rubs or gallops. ABDOMEN: Abdominal exam reveals normal bowel sounds. Non-tender and non- distended. No evidence of peritonitis. EXTREMITITES: No clubbing, cyanosis, or edema. Objective - Vital Signs Vital signs: Vital Signs Temp 98.2 F 12/30/18 04:00 Pulse 112 H 12/30/18 08:47 Resp 14 12/30/18 08:35 BP 100/64 12/30/18 04:00 Pulse Ox 97 12/30/18 04:00 Intake & Output 12/29/18 12/30/18 12/30/18 18:59 06:59 18:59 Intake Total 1077.2 720 249.205 Output Total 2601 1850 Balance -1523.8 -1130 249.205 Weight 126.4 kg Intake: IV 900 720 Sodium Chloride 0.9% 1, 800 720 000 ml @ 80 mls/hr IV . [id number] [facility] Rx#:[id number] cefTRIAXone 1 gm In 100 Sodium Chloride 0.9% 50 ml @ 100 mls/hr IVPB Q24HR [facility] Rx#:[id number] Intake, IV Titration 177.2 249.205 Amount Heparin Sod,Pork in 0.45% 177.2 249.205 NaCl 25,000 unit In 0.45 % NaCl 1 250ml.bag @ 6.27 UNITS/KG/HR 8 mls/hr IV .Q24H [facility] Rx#:[id number] Output: Urine 2600 1850 Urine/Stool Mix 1 Other: # Voids 1 # Bowel Movements 1 1 1 - Labs CBC & Chem 7: 12/30/18 04:28 12/30/18 04:28 Labs: Abnormal Lab Results - Last 24 Hours (Table) 12/29/18 12/29/18 12/29/18 Range/Units 03:07 12:37 17:44 RBC (4.30-5.90) m/uL Hgb (13.0-17.5) gm/dL Hct (39.0-53.0) % RDW (11.5-15.5) % Plt Count (150-450) k/uL APTT (22.0-30.0) sec Chloride (98-107) mmol/L Carbon Dioxide (22-30) mmol/L Glucose (74-99) mg/dL POC Glucose (mg/dL) 174 H 161 H (75-99) mg/dL Iron 15 L (65-175) ug/dL Iron Saturation 5.24 L (15.00-50.00) 12/29/18 12/30/18 12/30/18 Range/Units 21:01 04:28 04:28 RBC 2.88 L (4.30-5.90) m/uL Hgb 8.9 L (13.0-17.5) gm/dL Hct 28.2 L (39.0-53.0) % RDW 15.7 H (11.5-15.5) % Plt Count 138 L (150-450) k/uL APTT (22.0-30.0) sec Chloride 112 H (98-107) mmol/L Carbon Dioxide 20 L (22-30) mmol/L Glucose 163 H (74-99) mg/dL POC Glucose (mg/dL) 153 H (75-99) mg/dL Iron (65-175) ug/dL Iron Saturation (15.00-50.00) 12/30/18 12/30/18 Range/Units 04:28 06:50 RBC (4.30-5.90) m/uL Hgb (13.0-17.5) gm/dL Hct (39.0-53.0) % RDW (11.5-15.5) % Plt Count (150-450) k/uL APTT 51.3 H (22.0-30.0) sec Chloride (98-107) mmol/L Carbon Dioxide (22-30) mmol/L Glucose (74-99) mg/dL POC Glucose (mg/dL) 182 H (75-99) mg/dL Iron (65-175) ug/dL Iron Saturation (15.00-50.00) Assessment and Plan Plan: Assessment: 1. Acute kidney injury secondary to ATN secondary to intravascular volume depletion from diarrhea as well as hemodynamic instability. Creatinine 1.21 today. Baseline creatinine near 1. No evidence of hydronephrosis or infarct noted on CAT scan of the abdomen and pelvis. 2. Diarrhea. Possibly ischemic colitis from microvascular emboli. Maintained on antibiotics. Gen. surgery following. Rule out C.diff. 3. Atrial flutter. Maintain on amiodarone and IV heparin. 4. Insulin-dependent diabetes mellitus. 5. Anemia. Iron deficiency noted. Plan: Maintain normal saline at 80 mL an hour. Avoid nephrotoxins. Continue to hold DARWIN inhibitor for now. IV iron x 3 doses.
[2018-12-30] MEDS: SODIUM FERRIC GLUCONAT-SUCROSE 125 MG in SODIUM CHLORIDE 0.9% 100 ML IVPB SCH (11:24)
--- NOTE | 2018-12-30 11:48 | P.PN ---
Subjective Progress Note Date: 12/30/18 This is a 68-year-old male patient with known history of coronary artery disease and the patient underwent a single-vessel bypass surgery and aortic valve replacement on 12/02/2018 in our institution. The patient is also known to have hypertension and hyperlipidemia and diabetes mellitus and peripheral neuropathy. Is a former smoker. I was involved in this patient's postoperative care. The patient did well. The patient was discharged to [facility] on [facility] on on 12/09/2018. Note that the patient's aortic valve are present was done for severe aortic stenosis. He has some background COPD with an FEV1 of 56% of predicted. He is obese and his BMI is at 38.3. The patient did develop atrial fibrillation following his surgery. He did convert to normal sinus rhythm after he was given amiodarone. Upon discharge, he was given amiodarone 400 mg by mouth twice a day in addition to aspirin and metoprolol 50 mg by mouth twice a day. He was also given Lasix 40 mg by mouth daily. He was asked to continue Levemir insulin 40 units at bedtime and 20 units in the morning in addition to DuoNeb nebulized treatments on the clock. His regimen also includes a combination of aspirin and Plavix. He has also history of herpetic infection for which she is on Valtrex. The patient came in to the emergency department after he was found by his primary care physician to be in atrial fibrillation/flutter with rapid ventricular response. The patient was initially resting comfortably in his bed and he was not having any significant distress. He denies having any symptoms of chest pain or shortness of breath or dizziness. He stated that his heart was racing. In the emergency department, the patient was also found to be acute kidney injury. The creatinine at time of admission was 2.09 knowing that time of the chest creatinine was completely within normal limits. His current creatinine is at 1.8. The patient was initially admitted to selective unit where he was started on amiodarone bolus and while the bolus was infusing the patient went unresponsive. According to the rhythm strips, the patient had a positive around 5 seconds and he was briefly given CPR. He did wake up within a few seconds. The patient had a bowel movement following that and he also felt diaphoretic. He got moved to the intensive care unit. His current rhythm is a flutter with a rate of 117-120. He is on no amiodarone drip. He is taking metoprolol the dose of which was modified and the patient is currently taking 75 mg by mouth twice a day. He is also started on long-term anticoagulation with Eliquis. His sternum is stable clean and intact. He has not voided yet. He is receiving IV fluids in order of 80 mL an hour and he will be receiving IV fluid bolus as recommended by cardiology. Echocardiogram was done and the patient has a preserved LV function with an ejection fraction of 50-55% and there is no other valvular abnormalities. The aortic valve was not well visualized and the peak gradient across the valve was 11 mmHg and it is a normally functioning bioprosthetic valve. The right ventricular systolic pressure was not measured as there was no tricuspid regurgitation jet. On today's evaluation of 12/28/2018, the patient remains in atrial flutter. The rate is under better control and the patient is less tachycardic. He briefly went into a sinus rhythm yesterday however subsequently went back into a flutter rhythm. No chest pain. No palpitation. No shortness of breath. He did complain of right lower quadrant pain today. On examination he had direct and rebound tenderness. Based on that, he was sent for a stat CAT scan of the abdomen and pelvis that showed evidence of cecal inflammation. The area in the cecum was quite inflamed and swollen and there was diffuse thickening through the cecum and proximal ascending colon. For this reason, the patient was started on a combination of IV Rocephin and Flagyl. Gen. surgery was consulted. The patient likely had an embolic phenomena as the patient went into atrial flutter and he could've embolized to his bowel. Ischemic colitis, hypotension is another possibility. In any rate, the patient was seen by general surgery. He is not having any nausea or vomiting. His abdominal pain is around 2 out of 10 in severity. No altered mentation. His lactic acid level came back at 3.2. He is on IV fluids. He was given another bolus yesterday and his creatinine is improving and is down to 1.38. He is back on oral amiodarone 200 mg by mouth 3 times a day. He is also on metoprolol 75 mg by mouth twice a day and his heart rate is under much better control and today' s evaluation. On today's evaluation of 12/29/2018, the patient remains in a slower rate atrial flutter. He is doing well per no chest pain no shortness of breath. He still having right lower quadrant pain and would believe that the patient embolic phenomena causing acute inflammation of the cecum/ascending colon. He is on a combination of Rocephin and Flagyl. He is passing flatus per no signs of any bowel obstruction. No nausea or vomiting. He is tolerating clear liquid diet. His white cell count is at 7.4. His BUN is at 20 with a creatinine of 1.4. He remains on IV heparin and his PTT is therapeutic at this point in time. No fever. No chills. No chest pain. No shortness of breath. Resting comfortably in bed. Surgeries on the case regarding the abdominal findings. On 12/30/2018 the patient remains in intensive care unit. The patient remains in a a flutter rhythm and the rate is as high as low 100s and typically is running in the 80 beats per minute range. The patient is also on IV heparin. The patient is on oral amiodarone. No respiratory distress. His resting comfortably in bed. He is taking clear liquid diet. He still has a right abdominal quadrant tenderness in the right lower quadrant area. The overall tenderness is unchanged compared to yesterday. He has no abdominal distention. His passing flatus. I do not think there is any change in his abdominal exam compared to yesterday. Remains afebrile. No significant leukocytosis. He is not toxic at all. He is still receiving normal state rate of 80 mL an hour. He is on IV Rocephin and Flagyl as broad-spectrum antibiotic coverage. Objective - Vital Signs Vital signs: Vital Signs Temp 97.6 F 12/30/18 08:00 Pulse 118 H 12/30/18 10:00 Resp 17 12/30/18 10:00 BP 113/83 12/30/18 10:00 Pulse Ox 96 12/30/18 10:00 Intake & Output 12/29/18 12/30/18 12/30/18 18:59 06:59 18:59 Intake Total 1077.2 720 879.205 Output Total 2601 1850 225 Balance -1523.8 -1130 654.205 Weight 126.4 kg Intake: IV 900 720 630 Sodium Chloride 0.9% 1, 800 720 480 000 ml @ 80 mls/hr IV . [id number] GAETANO Rx#:[id number] cefTRIAXone 1 gm In 100 50 Sodium Chloride 0.9% 50 ml @ 100 mls/hr IVPB Q24HR GAETANO Rx#:[id number] metroNIDAZOLE-NS PMX 500 100 mg In Saline 1 100ml.bag @ 100 mls/hr IVPB Q8HR GAETANO Rx#:[id number] Intake, IV Titration 177.2 249.205 Amount Heparin Sod,Pork in 0.45% 177.2 249.205 NaCl 25,000 unit In 0.45 % NaCl 1 250ml.bag @ 6.27 UNITS/KG/HR 8 mls/hr IV .Q24H GAETANO Rx#:[id number] Output: Urine 2600 1850 225 Urine/Stool Mix 1 Other: # Voids 1 # Bowel Movements 1 1 1 - Exam GENERAL: This is a 68-year-old male in no apparent distress at the time of my examination. HEENT: Head is atraumatic, normocephalic. Pupils are equal, round. Sclerae anicteric. Conjunctivae are clear. Mucous membranes of the mouth are moist. Neck is supple. There is no jugular venous distention. No carotid bruit is heard. LUNGS: Clear to auscultation no wheezes, rales or rhonchi. No chest wall tenderness is noted on palpation or with deep breathing. HEART: Irregular rate and rhythm with systolic ejection murmur at the base, no rubs or gallops. S1 and S2 heard. Heart [address]. Sternal scar noted clean dry and intact. ABDOMEN: Soft, tender. Bowel sounds are heard. No organomegaly noted. The patient has direct tenderness in his right lower quadrant area. there is some rebound tenderness. No guarding. No ascites. Bowel sounds are hypoactive at the present.EXTREMITIES: No evidence of peripheral edema and no calf tenderness noted. VASCULAR: Radial and dorsalis pedis pulses palpated, no evidence of clubbing. NEUROLOGIC: Patient is awake, alert and oriented x3. - Labs CBC & Chem 7: 12/30/18 04:28 12/30/18 04:28 Labs: Abnormal Lab Results - Last 24 Hours (Table) 12/29/18 12/29/18 12/29/18 Range/Units 03:07 12:37 17:44 RBC (4.30-5.90) m/uL Hgb (13.0-17.5) gm/dL Hct (39.0-53.0) % RDW (11.5-15.5) % Plt Count (150-450) k/uL APTT (22.0-30.0) sec Chloride (98-107) mmol/L Carbon Dioxide (22-30) mmol/L Glucose (74-99) mg/dL POC Glucose (mg/dL) 174 H 161 H (75-99) mg/dL Iron 15 L (65-175) ug/dL Iron Saturation 5.24 L (15.00-50.00) 12/29/18 12/30/18 12/30/18 Range/Units 21:01 04:28 04:28 RBC 2.88 L (4.30-5.90) m/uL Hgb 8.9 L (13.0-17.5) gm/dL Hct 28.2 L (39.0-53.0) % RDW 15.7 H (11.5-15.5) % Plt Count 138 L (150-450) k/uL APTT (22.0-30.0) sec Chloride 112 H (98-107) mmol/L Carbon Dioxide 20 L (22-30) mmol/L Glucose 163 H (74-99) mg/dL POC Glucose (mg/dL) 153 H (75-99) mg/dL Iron (65-175) ug/dL Iron Saturation (15.00-50.00) 12/30/18 12/30/18 Range/Units 04:28 06:50 RBC (4.30-5.90) m/uL Hgb (13.0-17.5) gm/dL Hct (39.0-53.0) % RDW (11.5-15.5) % Plt Count (150-450) k/uL APTT 51.3 H (22.0-30.0) sec Chloride (98-107) mmol/L Carbon Dioxide (22-30) mmol/L Glucose (74-99) mg/dL POC Glucose (mg/dL) 182 H (75-99) mg/dL Iron (65-175) ug/dL Iron Saturation (15.00-50.00) Assessment and Plan Plan: Assessment 1 atrial flutter with rapid ventricular response with a brief bout of cardiac cause/arrest from which the patient recovered and the patient is currently off amiodarone drip. Subsequently, the patient got moved to the intensive care unit. The patient was given amiodarone 200 mg 3 times a day in addition to metoprolol 75 mg twice a day and the rate is under better control. The patient remains in atrial flutter. The rate is under better control and the patient is still on IV heparin for now. He is being considered for a cardioversion at the later stages depending on his outcome regarding his colitis. 2 coronary artery disease with a recent single-vessel bypass surgery 3 acute right lower quadrant pain with evidence of diffuse bowel thickening involving the cecum and ascending colon, consider embolism to the got due to an underlying atrial flutter. Patient will be started on IV heparin. Patient's abdominal exam is unchanged compared to yesterday. No significant leukocytosis. No lactic acidosis. He still has some right lower quadrant pain. He is tolerating clear liquid diet. Passing flatus and bowel movements and there is no signs of bowel perforation or obstruction. On today's evaluation, there is no significant changes abdominal exam compared to yesterday. Still on clear liquid diet. Passing classes. 4 diabetes mellitus type 2 with peripheral neuropathy 5 hypertension history of currently slightly hypotensive receiving IV fluids 6 acute kidney injury, improving and the creatinine is down to 1.2 7 hyperlipidemia 8 COPD with a baseline FEV1 of 56% of predicted 9 history of depression 10 history of shingles currently on Valtrex for chronic suppression 11 history of right and left hip replacement with postoperative infections requiring antibiotics and the patient has been maintained on doxycycline outpatient basis 12 normocytic anemia Plan Keep the patient in intensive care unit. Continue same antibiotic coverage. Continue the patient IV heparin. Abdominal exam compared to yesterday's essentially the same. The patient is not toxic looking. Continue same antibiotic coverage. Clear liquid diet. Ambulate in the hallway. We'll continue to follow. We are expecting at least some improvement in his right lower quadrant pain over the next few days. This is probably an ischemic phenomena or an embolic phenomena secondary to his atrial flutter.
[2018-12-30 12:13] LABS: Glucose,Whole Blood 178 mg/dL (75-99)
--- NOTE | 2018-12-30 15:46 | P.PN ---
Subjective Progress Note Date: 12/30/18 68-year-old male one of Dr. Graham patient who was admitted to the hospital 12/02/2018 to 12/09/2018 for elective aortic valve placement and one-vessel CABG which is reverse saphenous vein graft to the right coronary artery in by Dr. Irby cardiothoracic. Patient was in the hospital for a few days developed to have A. fib with RVR was started on amiodarone and was back in sinus rhythm. Pulse rate is well-controlled. Patient was transferred to [facility] on leg for rehab. Was seen Dr. Washington today at [facility] on the [place] and found to be in A. fib with RVR pulse rate running about 150 beats per minutes. Also patient was dehydrated dry having hypotension was sent to the emergency department at [facility] where was seen and evaluated found to be in A. fib with RVR with pulse rate rapid. Cardiothoracic and cardiology were inform patient also found to be in acute kidney failure with acute kidney injury most likely ATN creatinine is up to 2.08 from 1.0. Patient was started on gentle hydration Cardizem drip and heparin drip and was admitted to the hospital with above problem. 12/27: Patient is resting in bed without any acute distress. Patient continues to be in A. fib with RVR pulse rate running about 120. Patient denies any difficulty breathing or shortness of breath at this time. Incisional site remains clean and dry. Patient has no new concerns or complaints at this time. WC 4.8, hemoglobin 10.2, platelets 15.7, sodium 140, potassium 5.3, chloride 105, BUN is 32 creatinine 1.81, glucose 200. 12/28: Through the night patient experienced severe abdominal pain. Patient was transferred to the intensive care unit for monitoring. CAT of the abdomen with and without contrast was performed. CT showed small bilateral pleural effusion , compressive atelectasis adjacent to the left pleural effusion, cholelithiasis , diffuse thickening through the cecum and proximal ascending colon. Patient continues to have right lower quadrant abdominal pain and tenderness. Patient denies any nausea or vomiting. Patient continues to be in A. fib with RVR pulse rate running in 115. 12/29: Patient has been evaluated by Dr. Monahan regarding short segment of colitis likely ischemic from microvascular emboli. Recommend continuing anticoagulation and begin liquid diet, empiric antibiotics plan is for conservative management. He is currently on Rocephin and Flagyl. Patient is also followed by cardiology. He is currently on heparin drip and oral amiodarone. equipment monitor phototypesetting is atrial flutter. Heart rate is running 95-108, blood pressure 92/60, pulse ox 97% on room air. He has been afebrile. White count is normal some 0.4, hemoglobin 8.9, platelet count 141, creatinine 1.44. Capillary blood glucose running between 150-176. Repeat chest x-ray reveals bibasilar consolidation greater on the left with small left pleural effusion. Echocardiogram reveals EF of 50-55% with moderate concentric left ventricle hypertrophy, mild mitral regurgitation, mild tricuspid regurgitation, small generalized pericardial effusion. Patient is also followed by consultants: nephrology, pulmonary medicine, cardiothoracic surgery. 12/30: Patient remains in intensive care unit awaiting a cardiac stepdown unit bed. He remains on heparin drip also on Flagyl. He complains of diarrhea every 3 hours at least a small amount. Stool will be checked for C. difficile toxin and if negative patient will be started on Imodium. He has no respiratory distress. His found sitting in a recliner and appears to be comfortable. equipment monitor phototypesetting is atrial flutter rate is controlled Review of Systems CONSTITUTIONAL: Well-developed no acute respiratory distress. No fever no chills. Reports generalized weakness EYES: No icterus sclerae, no conjunctivitis. EARS, NOSE, MOUTH, THROAT, and FACE: No sore throat, lymphadenopathy, carotid bruits or deformity. RESPIRATORY: Mild shortness of breath no wheezes CARDIOVASCULAR: Positive chest wall pain, positive palpitation and PND GASTROINTESTINAL: Reports right Abd pain, Nausea or vomiting, reports Diarrhea denies constipation, No GI Bleed, no distention or masses. GENITOURINARY: Negative for Hematuria or UTI, no kidney stones. INTEGUMENT/BREAST: Negative for any muscular injury with mild osteoarthritis.. HEMATOLOGIC/LYMPHATIC: Negative for bleed or purpura. MUSCULOSKELTAL: Negative for Myalgia or arthralgia. NEURLOGICAL: No LOC, Sz or syncope, blurred vision dizziness or abnormality.. BEHAVIORAL/PSYCH: Negative. ENDOCRINE: Negative. Objective - Vital Signs Vital signs: Vital Signs Temp 98.2 F 12/30/18 12:01 Pulse 80 02/26/19 12:06 Resp 18 12/30/18 12:06 BP 91/49 12/30/18 12:01 Pulse Ox 96 12/30/18 12:01 Intake & Output 12/29/18 12/30/18 12/30/18 18:59 06:59 18:59 Intake Total 1077.2 720 1739.205 Output Total 2601 1850 225 Balance -1523.8 -1130 1514.205 Weight 126.4 kg Intake: IV 900 720 890 Sodium Chloride 0.9% 1, 800 720 640 000 ml @ 80 mls/hr IV . [id number] GAETANO Rx#:[id number] Sodium Ferric Gluconat- 100 Sucrose 125 mg In Sodium Chloride 0.9% 100 ml @ 100 mls/hr IVPB DAILY GAETANO Rx#:[id number] cefTRIAXone 1 gm In 100 50 Sodium Chloride 0.9% 50 ml @ 100 mls/hr IVPB Q24HR GAETANO Rx#:[id number] metroNIDAZOLE-NS PMX 500 100 mg In Saline 1 100ml.bag @ 100 mls/hr IVPB Q8HR GAETANO Rx#:[id number] Intake, IV Titration 177.2 249.205 Amount Heparin Sod,Pork in 0.45% 177.2 249.205 NaCl 25,000 unit In 0.45 % NaCl 1 250ml.bag @ 6.27 UNITS/KG/HR 8 mls/hr IV .Q24H GAETANO Rx#:[id number] Oral 600 Output: Urine 2600 1850 225 Urine/Stool Mix 1 Other: # Voids 1 # Bowel Movements 1 1 1 - Exam General Appearance: Alert, cooperative, no distress, appears stated age. Resting in a recliner. Neck HEENT: Supple, no lymphadenopathy, no thyroid enlargement, no carotid bruits. Lungs: Decreased breath sound bilaterally specially in the left side with fine rhonchi no wheezes. Chest Wall: Decrease expansion with deep inspiration no tenderness and no deformity was found on exam, no costochondral pain or discomfort. Incision in the mid sternum area looks good with no sign of infection or induration or redness. Heart: IRRegular rate and rhythm, S1, S2 normal, positive S3, positive aortic valve click no murmur, rub or gallop. Back: Symmetric, no curvature, ROM normal, no CVA tenderness. Abdomen: Soft, tender right lower quadrant, no rebound tenderness, bowel sounds active all four quadrants, no masses, no organomegaly. Extremities: Trace edema decreased pulse, positive mild osteoarthritis. Pulses: 2+ and symmetric. Skin: Skin color, texture, tugor normal, no rashes or lesions. Neurologic: Alert oriented x3 cranial nerves II through XII intact, no motor deficit, no abnormal balance or gait. - Labs CBC & Chem 7: 12/30/18 04:28 12/30/18 04:28 Labs: Abnormal Lab Results - Last 24 Hours (Table) 12/29/18 12/29/18 12/29/18 Range/Units 03:07 17:44 21:01 RBC (4.30-5.90) m/uL Hgb (13.0-17.5) gm/dL Hct (39.0-53.0) % RDW (11.5-15.5) % Plt Count (150-450) k/uL APTT (22.0-30.0) sec Chloride (98-107) mmol/L Carbon Dioxide (22-30) mmol/L Glucose (74-99) mg/dL POC Glucose (mg/dL) 161 H 153 H (75-99) mg/dL Iron 15 L (65-175) ug/dL Iron Saturation 5.24 L (15.00-50.00) 12/30/18 12/30/18 12/30/18 Range/Units 04:28 04:28 04:28 RBC 2.88 L (4.30-5.90) m/uL Hgb 8.9 L (13.0-17.5) gm/dL Hct 28.2 L (39.0-53.0) % RDW 15.7 H (11.5-15.5) % Plt Count 138 L (150-450) k/uL APTT 51.3 H (22.0-30.0) sec Chloride 112 H (98-107) mmol/L Carbon Dioxide 20 L (22-30) mmol/L Glucose 163 H (74-99) mg/dL POC Glucose (mg/dL) (75-99) mg/dL Iron (65-175) ug/dL Iron Saturation (15.00-50.00) 12/30/18 12/30/18 Range/Units 06:50 12:12 RBC (4.30-5.90) m/uL Hgb (13.0-17.5) gm/dL Hct (39.0-53.0) % RDW (11.5-15.5) % Plt Count (150-450) k/uL APTT (22.0-30.0) sec Chloride (98-107) mmol/L Carbon Dioxide (22-30) mmol/L Glucose (74-99) mg/dL POC Glucose (mg/dL) 182 H 178 H (75-99) mg/dL Iron (65-175) ug/dL Iron Saturation (15.00-50.00) Assessment and Plan Plan: 1 A. flutter with RVR and underlying chronic atrial flutter with brief cardiac arrest recovered. Continue amiodarone 200 mg 3 times daily, heparin drip. Cardiology consult appreciated 2 Acute kidney injury with most likely ATN with acute kidney failure decrease GFR significantly avoid nephrotoxic agent, consult with nephrology appreciated. 3 post aortic valve placement: Successful surgery so far with no major complication. Continue incentive spirometery, consult with cardiothoracic surgery appreciated 4 post one-vessel CABG was reverse saphenous to the RCI stable so far. 5 type 2 diabetes: Has been on Humalog and long acting insulin resume both continue Accu-Chek with sliding scales coverage. 6 Hypertension: Continue metoprolol and amiodarone. 7 Hyperlipidemia: Continue patient on atorvastatin 40 mg daily. 8. Recurrent depression. Continue Celexa 20 mg daily. 9. COPD: Continue patient on albuterol/ipratropium nebulizer continue O2 try to keep pulse ox above 90 percentile. 10. Ischemic colitis: Surgical consult appreciated, plan for conservative management. Continue Flagyl 500 grams every 8 hours IV piggyback, Rocephin 1 g IV piggyback every 24 hours. Clear liquid diet 11 GI prophylaxis/GERD: Continue patient on pantoprazole 40 mg daily. 12 DVT prophylaxis: Patient will be started on heparin drip for now and half-way anticoagulation will be needed. 13. Chronic pain syndrome. Continue Lyrica 100 mg twice daily. 14. History of bilateral hip replacements and postop infections requiring chronic suppressive antibiotic therapy with doxycycline under the care of Dr. Ricci. 15. Chronic kidney disease stage II. 16. Diarrhea. Stool to be sent for C. difficile toxin. Start Lomotil CODE STATUS: Full code. Discharge plan: Return to [facility] on Saturday Impression and plan of care have been directed as dictated by the signing physician. Bryanna Coker nurse practitioner acting as scribe for signing physician.
--- NOTE | 2018-12-30 16:24 | PN ---
PROGRESS NOTE This patient was admitted with atrial flutter and shortness of breath. Subsequently patient developed ischemic colitis. He is feeling better. Patient's right lower quadrant pain remains about the same. He remains afebrile and hemodynamically remains stable. Patient is started back on full liquid diet. Patient's heart rate now remains in the range of 80 to 90. Blood pressure is 100/49 mmHg. First and second heart sounds are normal. Lungs are clinically clear to auscultation and percussion. At present we will maintain the patient on amiodarone, beta paul and continue rate control management. MMODL / IJN: [id number] /
--- NOTE | 2018-12-30 16:57 | P.PN ---
Subjective Progress Note Date: 12/30/18 Principal diagnosis: Ischemic colitis Patient says his pain is slightly improved from yesterday. He is hungry. Passing flatus. Small bowel movements. No fevers. White blood cell count normal. Objective - Vital Signs Vital signs: Vital Signs Temp 97.6 F 12/30/18 16:00 Pulse 113 H 12/30/18 16:22 Resp 17 12/30/18 16:00 BP 104/86 12/30/18 16:00 Pulse Ox 96 12/30/18 16:00 Intake & Output 12/29/18 12/30/18 12/30/18 18:59 06:59 18:59 Intake Total 1077.2 720 2279.205 Output Total 2601 1850 600 Balance -1523.8 -1130 1679.205 Weight 126.4 kg Intake: IV 327 147 9464 Sodium Chloride 0.9% 1, 800 720 960 000 ml @ 80 mls/hr IV . [id number] [facility] Rx#:[id number] Sodium Ferric Gluconat- 100 Sucrose 125 mg In Sodium Chloride 0.9% 100 ml @ 100 mls/hr IVPB DAILY [facility] Rx#:[id number] cefTRIAXone 1 gm In 100 50 Sodium Chloride 0.9% 50 ml @ 100 mls/hr IVPB Q24HR [facility] Rx#:[id number] metroNIDAZOLE-NS PMX 500 200 mg In Saline 1 100ml.bag @ 100 mls/hr IVPB Q8HR [facility] Rx#:[id number] Intake, IV Titration 177.2 249.205 Amount Heparin Sod,Pork in 0.45% 177.2 249.205 NaCl 25,000 unit In 0.45 % NaCl 1 250ml.bag @ 6.27 UNITS/KG/HR 8 mls/hr IV .Q24H [facility] Rx#:[id number] Oral 720 Output: Urine 2600 1850 600 Urine/Stool Mix 1 Other: # Voids 1 # Bowel Movements 1 1 1 - Exam Abdomen: Soft, nondistended, mild right lower quadrant tenderness - Labs CBC & Chem 7: 12/30/18 04:28 12/30/18 04:28 Labs: Abnormal Lab Results - Last 24 Hours (Table) 12/29/18 12/29/18 12/29/18 Range/Units 03:07 17:44 21:01 RBC (4.30-5.90) m/uL Hgb (13.0-17.5) gm/dL Hct (39.0-53.0) % RDW (11.5-15.5) % Plt Count (150-450) k/uL APTT (22.0-30.0) sec Chloride (98-107) mmol/L Carbon Dioxide (22-30) mmol/L Glucose (74-99) mg/dL POC Glucose (mg/dL) 161 H 153 H (75-99) mg/dL Iron 15 L (65-175) ug/dL Iron Saturation 5.24 L (15.00-50.00) 12/30/18 12/30/18 12/30/18 Range/Units 04:28 04:28 04:28 RBC 2.88 L (4.30-5.90) m/uL Hgb 8.9 L (13.0-17.5) gm/dL Hct 28.2 L (39.0-53.0) % RDW 15.7 H (11.5-15.5) % Plt Count 138 L (150-450) k/uL APTT 51.3 H (22.0-30.0) sec Chloride 112 H (98-107) mmol/L Carbon Dioxide 20 L (22-30) mmol/L Glucose 163 H (74-99) mg/dL POC Glucose (mg/dL) (75-99) mg/dL Iron (65-175) ug/dL Iron Saturation (15.00-50.00) 12/30/18 12/30/18 Range/Units 06:50 12:12 RBC (4.30-5.90) m/uL Hgb (13.0-17.5) gm/dL Hct (39.0-53.0) % RDW (11.5-15.5) % Plt Count (150-450) k/uL APTT (22.0-30.0) sec Chloride (98-107) mmol/L Carbon Dioxide (22-30) mmol/L Glucose (74-99) mg/dL POC Glucose (mg/dL) 182 H 178 H (75-99) mg/dL Iron (65-175) ug/dL Iron Saturation (15.00-50.00) Assessment and Plan (1) Acute ischemic colitis Narrative/Plan: Gradually increase diet. Continue empiric antibiotics. Serial exams. Current Visit: Yes Status: Acute Code(s): K55.039 - ACUTE ISCHEMIA OF LARGE INTESTINE, EXTENT UNSPECIFIED SNOMED Code(s): 45876493
[2018-12-30 17:06] LABS: Glucose,Whole Blood 157 mg/dL (75-99)
[2018-12-30] MEDS: SODIUM CHLORIDE 0.9% 1,000 ML IV SCH ×2 (17:27→20:53)
[2018-12-30] MEDS: LOPERAMIDE 2 MG CAP PO PRN (17:28)
[2018-12-30 20:27] LABS: Glucose,Whole Blood 77 mg/dL (75-99)
[2018-12-31] MEDS: metroNIDAZOLE-NS PMX 500 MG in SALINE 1 100ML.BAG IVPB SCH ×4 (00:35→23:44)
[2018-12-31] MEDS: HEPARIN SOD,PORK IN 0.45% NACL 25,000 UNIT in 0.45% NACL 1 250ML.BAG IV SCH (04:42)
[2018-12-31 04:52] LABS: Basophils % (A) 0 %; Eosinophils # (A) 0.4 k/uL (0-0.7); Eosinophils % (A) 7 %; HCT 29.5 % (39.0-53.0); HGB 9.1 gm/dL (13.0-17.5); Hypochromasia Marked; Lymphocytes # (A) 1.2 k/uL (1.0-4.8); Lymphocytes % (A) 24 %; MCH 29.5 pg (25.0-35.0); MCHC 30.7 g/dL (31.0-37.0); Mean Platelet Volume 7.1; Monocytes # (A) 0.3 k/uL (0-1.0); Monocytes % (A) 5 %; Neutrophils # (A) 3.1 k/uL (1.3-7.7); Neutrophils % (A) 61 %; Platelet Count 143 k/uL (150-450); Poikilocytosis Moderate; RBC 3.07 m/uL (4.30-5.90); RDW 15.6 % (11.5-15.5); WBC 5.1 k/uL (3.8-10.6)
[2018-12-31 05:09] LABS: Calcium 8.6 mg/dL (8.4-10.2); Magnesium 2.1 mg/dL (1.6-2.3); Potassium 4.5 mmol/L (3.5-5.1)
[2018-12-31 06:50] LABS: Glucose,Whole Blood 89 mg/dL (75-99)
[2018-12-31] MEDS: INSULIN ASPART (NovoLOG) 100 UNIT/ML VIAL SQ SCH ×7 (07:08→21:18)
[2018-12-31] MEDS: IPRATROPIUM-ALBUTEROL 3 ML NEB INHALATION SCH ×4 (07:58→20:18)
--- NOTE | 2018-12-31 09:18 | P.PN ---
Subjective Progress Note Date: 12/31/18 Principal diagnosis: New onset atrial flutter, acute kidney injury, history of aortic valve replacement, history of coronary artery bypass graft 1, history of aortic stenosis, history of infection total joint prosthesis postoperative bilateral hip replacements, chronic obstructive pulmonary disease, coronary artery disease , diabetes mellitus, family history of coronary artery disease, hyperlipidemia, hypertension, morbid obesity, osteoarthritis, tobacco dependence in remission, on 12/02/2018 patient had postoperative paroxysmal atrial fibrillation and a fall from standing without loss of consciousness and without injury, COPD with a recent FEV1 56% of predicted value and history of depression. The patient is currently sitting up to the bedside chair in no acute distress. He is alert and oriented 3. He remains complaining of right lower quadrant abdominal pain, rating his pain 3 out of 10 on the pain scale. With palpation he rates his pain 7 out of 10 on the pain scale. His bedside telemetry and kidneys show atrial fibrillation/atrial flutter heart rate 98. Heparin drip remains infusing per protocol. He denies any complaints of nausea or vomiting, although he complains of episodes of loose stools. Stool for C. diff was negative on 12/30/2018. He reports he ambulated in the intensive care unit hallway yesterday 3 times, he did have some episodes of shortness of breath although he reports that he took frequent breaks. He remains afebrile and his WBC count today is 5.1. He remains on Rocephin 1 g IV piggyback every 24 hours. Objective - Vital Signs Vital signs: Vital Signs Temp 97.9 F 12/31/18 08:00 Pulse 115 H 12/31/18 08:00 Resp 16 12/31/18 08:00 BP 117/74 12/31/18 08:00 Pulse Ox 96 12/31/18 08:00 Intake & Output 12/30/18 12/31/18 12/31/18 18:59 06:59 18:59 Intake Total 2519.205 1130.884 538 Output Total 876 735 200 Balance 1643.205 395.884 338 Weight 127.1 kg Intake: IV 1550 900 420 Sodium Chloride 0.9% 1, 1200 800 320 000 ml @ 80 mls/hr IV . [id number] [facility] Rx#:[id number] Sodium Ferric Gluconat- 100 Sucrose 125 mg In Sodium Chloride 0.9% 100 ml @ 100 mls/hr IVPB DAILY [facility] Rx#:[id number] cefTRIAXone 1 gm In 50 Sodium Chloride 0.9% 50 ml @ 100 mls/hr IVPB Q24HR [facility] Rx#:[id number] metroNIDAZOLE-NS PMX 500 200 100 100 mg In Saline 1 100ml.bag @ 100 mls/hr IVPB Q8HR [facility] Rx#:[id number] Intake, IV Titration 249.205 230.884 Amount Heparin Sod,Pork in 0.45% 249.205 230.884 NaCl 25,000 unit In 0.45 % NaCl 1 250ml.bag @ 6.27 UNITS/KG/HR 8 mls/hr IV .Q24H [facility] Rx#:[id number] Oral 720 118 Output: Urine 875 735 200 Urine/Stool Mix 1 Other: Voiding Method Urinal # Bowel Movements 1 1 1 - Constitutional General appearance: Present: cooperative, morbidly obese, no acute distress - Respiratory Details: Lung sounds are essentially clear to his bilateral upper lobes, diminished to his bilateral bases. Respirations are symmetrical and nonlabored. Oxygen saturation are 96% on room air. He is achieving 1500 mL on his incentive spirometry. - Cardiovascular Details: Irregular rhythm with controlled rate. S1 and S2 present, negative for S3, gallop or murmur. Sternum is stable. Bedside telemetry showing atrial fibrillation/atrial flutter heart rate 98. Trace edema to his bilateral lower extremities. Heart hugger is in place and he is demonstrating appropriate use. Knee-high AVE hose and sequential compression devices in place to his bilateral lower extremities. - Gastrointestinal Gastrointestinal Comment(s): Abdomen is soft, nondistended with tenderness to his right lower quadrant with and without palpating. Obese. Active bowel sounds to all 4 abdominal quadrants. Loose bowel movement this a.m. Tolerating oral intake. - Genitourinary Genitourinary Comment(s): Voiding clear yellow urine. 375 mL output in the last 8 hours. - Integumentary Integumentary Comment(s): Skin is warm and dry. No clubbing or cyanosis is present. Midline sternal incision is clean, dry and approximated. No redness or drainage is present. Right lower extremity EVH site clean, dry and approximated. No drainage or redness present. - Neurologic Neurologic: Present: CNII-XII intact - Musculoskeletal Musculoskeletal: Present: gait normal, strength equal bilaterally - Psychiatric Psychiatric: Present: A&O x's 3, appropriate affect, intact judgment & insight - Allied health notes Allied health notes reviewed: nursing - Labs CBC & Chem 7: 12/31/18 04:24 12/31/18 04:24 Labs: Abnormal Lab Results - Last 24 Hours (Table) 12/30/18 12/30/18 12/31/18 Range/Units 12:12 17:04 04:24 RBC (4.30-5.90) m/uL Hgb (13.0-17.5) gm/dL Hct (39.0-53.0) % MCHC (31.0-37.0) g/dL RDW (11.5-15.5) % Plt Count (150-450) k/uL APTT (22.0-30.0) sec Chloride 115 H (98-107) mmol/L Creatinine 1.27 H (0.66-1.25) mg/dL POC Glucose (mg/dL) 178 H 157 H (75-99) mg/dL 12/31/18 12/31/18 Range/Units 04:24 04:24 RBC 3.07 L (4.30-5.90) m/uL Hgb 9.1 L (13.0-17.5) gm/dL Hct 29.5 L (39.0-53.0) % MCHC 30.7 L (31.0-37.0) g/dL RDW 15.6 H (11.5-15.5) % Plt Count 143 L (150-450) k/uL APTT 37.2 H (22.0-30.0) sec Chloride (98-107) mmol/L Creatinine (0.66-1.25) mg/dL POC Glucose (mg/dL) (75-99) mg/dL - Imaging and Cardiology Chest x-ray: report reviewed, image reviewed Assessment and Plan (1) Atrial flutter by electrocardiogram Current Visit: Yes Status: Acute Code(s): I48.92 - UNSPECIFIED ATRIAL FLUTTER SNOMED Code(s): 179881046 (2) Acute kidney injury Current Visit: Yes Status: Acute Code(s): N17.9 - ACUTE KIDNEY FAILURE, UNSPECIFIED SNOMED Code(s): 26589202 (3) H/O aortic valve replacement Current Visit: Yes Status: Acute Code(s): Z95.2 - PRESENCE OF PROSTHETIC HEART VALVE SNOMED Code(s): 0417100373987 (4) History of coronary artery bypass graft x 1 Current Visit: Yes Status: Acute Code(s): Z95.1 - PRESENCE OF AORTOCORONARY BYPASS GRAFT SNOMED Code(s): 910115540 (5) Aortic stenosis Current Visit: No Status: Chronic Code(s): I35.0 - NONRHEUMATIC AORTIC ( VALVE) STENOSIS SNOMED Code(s): 88410436 (6) COPD (chronic obstructive pulmonary disease) Current Visit: No Status: Chronic Code(s): J44.9 - CHRONIC OBSTRUCTIVE PULMONARY DISEASE, UNSPECIFIED SNOMED Code(s): 74661834 (7) Coronary artery disease Current Visit: No Status: Chronic Code(s): I25.10 - ATHSCL HEART DISEASE OF [place] CORONARY ARTERY W/O ANG PCTRS SNOMED Code(s): 11721452 (8) Diabetes mellitus Current Visit: No Status: Chronic Code(s): E11.9 - TYPE 2 DIABETES MELLITUS WITHOUT COMPLICATIONS SNOMED Code(s): 79892025 (9) Family history of coronary artery disease Current Visit: No Status: Chronic Code(s): Z82.49 - FAMILY HX OF ISCHEM HEART DIS AND OTH DIS OF THE CIRC SYS SNOMED Code(s): 127393157 (10) Hyperlipidemia Current Visit: No Status: Chronic Code(s): E78.5 - HYPERLIPIDEMIA, UNSPECIFIED SNOMED Code(s): 01074412 (11) Hypertension Current Visit: No Status: Chronic Code(s): I10 - ESSENTIAL (PRIMARY) HYPERTENSION SNOMED Code(s): 55362362 (12) Obesity (BMI 30-39.9) Current Visit: No Status: Chronic Code(s): E66.9 - OBESITY, UNSPECIFIED SNOMED Code(s): 970839665 (13) Osteoarthritis Current Visit: No Status: Chronic Code(s): M19.90 - UNSPECIFIED OSTEOARTHRITIS, UNSPECIFIED SITE SNOMED Code(s): 378543656 (14) Tobacco dependence in remission Current Visit: No Status: Resolved Code(s): F17.201 - NICOTINE DEPENDENCE, UNSPECIFIED, IN REMISSION SNOMED Code(s): 462379665 (15) Depression Current Visit: Yes Status: Acute Code(s): F32.9 - MAJOR DEPRESSIVE DISORDER , SINGLE EPISODE, UNSPECIFIED SNOMED Code(s): 09645680 (16) DVT prophylaxis Current Visit: Yes Status: Acute Code(s): LEB0944 - SNOMED Code(s): 936274952 (17) Personal history of infected joint Current Visit: No Status: Acute Code(s): Z87.39 - PERSONAL HISTORY OF DISEASES OF THE MS SYS AND CONN TISS SNOMED Code(s): 958482250 Plan: 1. Continue low-dose aspirin, statin, DARWIN inhibitor and beta paul. 2. Encourage use of his incentive spirometry every hour while awake. 3. Will monitor daily labs and x-rays. 4. Increase activity as tolerated. PT/OT following. 5. GI prophylaxis with Protonix. DVT prophylaxis with heparin drip, SCDs. 6. Pain control with current medication regimen. 7. Insulin management per primary care service. 8. Amiodarone and heparin drip management per cardiology. 9. Per cardiology the patient will be scheduled for a CARMELA with cardioversion tomorrow morning 12/29/2017. 10. Continue amiodarone for atrial fibrillation/atrial flutter prophylaxis. 11. General surgery following for complaints of right lower quadrant abdominal pain and abnormal findings on computed tomography scan of his abdomen/pelvis. 12. Antibiotic management per Dr. Hebert's recommendations. 13. May transfer to [address] [place] [address] cardiac stepdown unit from the cardiothoracic surgery standpoint. 14. Avoid nephrotoxic agents. Nephrology following. 15. More recommendations to follow based on patient's clinical course. Time with Patient: Greater than 30
--- NOTE | 2018-12-31 09:20 | XR ---
EXAMINATION TYPE: XR chest 1V DATE OF EXAM: 12/31/2018 COMPARISON: Prior chest x-ray 12/30/2018 HISTORY: Abnormal chest x-ray, assess lungs TECHNIQUE: Single frontal view of the chest is obtained. FINDINGS: Retrocardiac density with obscured left hemidiaphragm persists, basilar right sided densit ies also present. No pneumothorax. Patient is post median sternotomy. Heart size may be accentuated b y rotation. There are overlying cardiac leads. There is overlying artifact. IMPRESSION: Findings similar to prior exam. Probable basilar atelectasis, associated effusion, corre late to exclude pneumonia or edema.
[2018-12-31] MEDS: ASPIRIN 81 MG PO SCH (09:31)
[2018-12-31] MEDS: AMIODARONE 200 MG TAB PO SCH ×3 (09:31→23:43)
[2018-12-31] MEDS: ATORVASTATIN 40 MG TAB PO SCH (09:31)
[2018-12-31] MEDS: CITALOPRAM HYDROBROMIDE 20 MG TAB PO SCH (09:31)
[2018-12-31] MEDS: CHOLECALCIFEROL 1,000 UNIT TAB PO SCH (09:31)
[2018-12-31] MEDS: METOPROLOL TARTRATE 25 MG TAB PO SCH (09:32)
[2018-12-31] MEDS: INSULIN DETEMIR (LEVEMIR) 100 UNIT/ML SYR SQ SCH ×2 (09:32→21:19)
[2018-12-31] MEDS: valACYclovir 500 MG TAB PO SCH (09:33)
[2018-12-31] MEDS: PREGABALIN 100 MG CAP PO SCH ×2 (09:33→21:18)
[2018-12-31] MEDS: SODIUM FERRIC GLUCONAT-SUCROSE 125 MG in SODIUM CHLORIDE 0.9% 100 ML IVPB SCH (09:33)
[2018-12-31] MEDS: PANTOPRAZOLE 40 MG TABLET PO SCH (09:33)
--- NOTE | 2018-12-31 10:17 | P.PN ---
Subjective Progress Note Date: 12/31/18 Principal diagnosis: Ischemic colitis Patient says his pain is improved. No pain at rest currently. Says the pain is involving a smaller area. Tolerating diet. Objective - Vital Signs Vital signs: Vital Signs Temp 97.9 F 12/31/18 08:00 Pulse 115 H 12/31/18 08:00 Resp 16 12/31/18 08:00 BP 117/74 12/31/18 08:00 Pulse Ox 96 12/31/18 08:00 Intake & Output 12/30/18 12/31/18 12/31/18 18:59 06:59 18:59 Intake Total 2519.205 1130.884 538 Output Total 876 735 200 Balance 1643.205 395.884 338 Weight 127.1 kg Intake: IV 1550 900 420 Sodium Chloride 0.9% 1, 1200 800 320 000 ml @ 80 mls/hr IV . [id number] [facility] Rx#:[id number] Sodium Ferric Gluconat- 100 Sucrose 125 mg In Sodium Chloride 0.9% 100 ml @ 100 mls/hr IVPB DAILY [facility] Rx#:[id number] cefTRIAXone 1 gm In 50 Sodium Chloride 0.9% 50 ml @ 100 mls/hr IVPB Q24HR [facility] Rx#:[id number] metroNIDAZOLE-NS PMX 500 200 100 100 mg In Saline 1 100ml.bag @ 100 mls/hr IVPB Q8HR [facility] Rx#:[id number] Intake, IV Titration 249.205 230.884 Amount Heparin Sod,Pork in 0.45% 249.205 230.884 NaCl 25,000 unit In 0.45 % NaCl 1 250ml.bag @ 6.27 UNITS/KG/HR 8 mls/hr IV .Q24H [facility] Rx#:[id number] Oral 720 118 Output: Urine 875 735 200 Urine/Stool Mix 1 Other: Voiding Method Urinal # Bowel Movements 1 1 1 - Exam Abdomen: Soft, nondistended, mild right lower quadrant tenderness - Labs CBC & Chem 7: 12/31/18 04:24 12/31/18 04:24 Labs: Abnormal Lab Results - Last 24 Hours (Table) 12/30/18 12/30/18 12/31/18 Range/Units 12:12 17:04 04:24 RBC (4.30-5.90) m/uL Hgb (13.0-17.5) gm/dL Hct (39.0-53.0) % MCHC (31.0-37.0) g/dL RDW (11.5-15.5) % Plt Count (150-450) k/uL APTT (22.0-30.0) sec Chloride 115 H (98-107) mmol/L Creatinine 1.27 H (0.66-1.25) mg/dL POC Glucose (mg/dL) 178 H 157 H (75-99) mg/dL 12/31/18 12/31/18 Range/Units 04:24 04:24 RBC 3.07 L (4.30-5.90) m/uL Hgb 9.1 L (13.0-17.5) gm/dL Hct 29.5 L (39.0-53.0) % MCHC 30.7 L (31.0-37.0) g/dL RDW 15.6 H (11.5-15.5) % Plt Count 143 L (150-450) k/uL APTT 37.2 H (22.0-30.0) sec Chloride (98-107) mmol/L Creatinine (0.66-1.25) mg/dL POC Glucose (mg/dL) (75-99) mg/dL Assessment and Plan (1) Acute ischemic colitis Narrative/Plan: Continue low fiber diet. Ambulate. Continue medical regular. Continue empiric antibiotics. Current Visit: Yes Status: Acute Code(s): K55.039 - ACUTE ISCHEMIA OF LARGE INTESTINE, EXTENT UNSPECIFIED SNOMED Code(s): 21644992
--- NOTE | 2018-12-31 10:50 | P.PN ---
Subjective Patient is seen in follow-up for acute kidney injury. Patient's basic creatinine is 1 and peaked at 2.09 this admission. It is stable at 1.27 today. He's currently maintained on normal saline at 80 mL an hour. Continues to have diarrhea. C. diff was negative. Admits to good urine output. Denies chest pain or shortness of breath. Vital signs are stable. General: The patient appeared well nourished and normally developed. HEENT: Head exam is unremarkable. Neck is without jugular venous distension. LUNGS: Lungs are clear to auscultation and percussion. Breath sounds decreased. HEART: Rate and Rhythm are regular. First and second heart sounds normal. No murmurs, rubs or gallops. ABDOMEN: Abdominal exam reveals normal bowel sounds. Non-tender and non- distended. No evidence of peritonitis. EXTREMITITES: No clubbing, cyanosis, or edema. Objective - Vital Signs Vital signs: Vital Signs Temp 97.9 F 12/31/18 08:00 Pulse 115 H 12/31/18 08:00 Resp 16 12/31/18 08:00 BP 117/74 12/31/18 08:00 Pulse Ox 96 12/31/18 08:00 Intake & Output 12/30/18 12/31/18 12/31/18 18:59 06:59 18:59 Intake Total 2519.205 1130.884 538 Output Total 876 735 200 Balance 1643.205 395.884 338 Weight 127.1 kg Intake: IV 1550 900 420 Sodium Chloride 0.9% 1, 1200 800 320 000 ml @ 80 mls/hr IV . [id number] [facility] Rx#:[id number] Sodium Ferric Gluconat- 100 Sucrose 125 mg In Sodium Chloride 0.9% 100 ml @ 100 mls/hr IVPB DAILY [facility] Rx#:[id number] cefTRIAXone 1 gm In 50 Sodium Chloride 0.9% 50 ml @ 100 mls/hr IVPB Q24HR [facility] Rx#:[id number] metroNIDAZOLE-NS PMX 500 200 100 100 mg In Saline 1 100ml.bag @ 100 mls/hr IVPB Q8HR [facility] Rx#:[id number] Intake, IV Titration 249.205 230.884 Amount Heparin Sod,Pork in 0.45% 249.205 230.884 NaCl 25,000 unit In 0.45 % NaCl 1 250ml.bag @ 6.27 UNITS/KG/HR 8 mls/hr IV .Q24H [facility] Rx#:[id number] Oral 720 118 Output: Urine 875 735 200 Urine/Stool Mix 1 Other: Voiding Method Urinal # Bowel Movements 1 1 1 - Labs CBC & Chem 7: 12/31/18 04:24 12/31/18 04:24 Labs: Abnormal Lab Results - Last 24 Hours (Table) 12/30/18 12/30/18 12/31/18 Range/Units 12:12 17:04 04:24 RBC (4.30-5.90) m/uL Hgb (13.0-17.5) gm/dL Hct (39.0-53.0) % MCHC (31.0-37.0) g/dL RDW (11.5-15.5) % Plt Count (150-450) k/uL APTT (22.0-30.0) sec Chloride 115 H (98-107) mmol/L Creatinine 1.27 H (0.66-1.25) mg/dL POC Glucose (mg/dL) 178 H 157 H (75-99) mg/dL 12/31/18 12/31/18 Range/Units 04:24 04:24 RBC 3.07 L (4.30-5.90) m/uL Hgb 9.1 L (13.0-17.5) gm/dL Hct 29.5 L (39.0-53.0) % MCHC 30.7 L (31.0-37.0) g/dL RDW 15.6 H (11.5-15.5) % Plt Count 143 L (150-450) k/uL APTT 37.2 H (22.0-30.0) sec Chloride (98-107) mmol/L Creatinine (0.66-1.25) mg/dL POC Glucose (mg/dL) (75-99) mg/dL Assessment and Plan Plan: Assessment: 1. Acute kidney injury secondary to ATN secondary to intravascular volume depletion from diarrhea as well as hemodynamic instability. Creatinine 1.27 today. Baseline creatinine near 1. No evidence of hydronephrosis or infarct noted on CAT scan of the abdomen and pelvis. 2. Diarrhea. Possibly ischemic colitis from microvascular emboli. Maintained on antibiotics. Gen. surgery following. C. diff negative. 3. Atrial flutter. Maintain on amiodarone and IV heparin. 4. Insulin-dependent diabetes mellitus. 5. Anemia. Iron deficiency noted. Plan: Maintain normal saline at 80 mL an hour. Avoid nephrotoxins. Continue to hold DARWIN inhibitor for now. IV iron x 3 doses. Second dose today.
--- NOTE | 2018-12-31 11:12 | XR ---
EXAMINATION TYPE: XR KUB DATE OF EXAM: 12/31/2018 COMPARISON: NONE HISTORY: Pain TECHNIQUE: One view abdominal series FINDINGS: The osseous structures are intact. The bowel gas pattern is nonspecific. Bilateral hip prostheses ar e seen. Assessment for free air limited by supine positioning. Left lower lobe consolidation and bila teral small effusion suspected. Degenerative changes spine and surgical change involving the mediasti num. Soft tissue ossification adjacent to the right iliac bone noted. Nonspecific calcification left upper quadrant. IMPRESSION: 1. Nonspecific gas pattern. Assessment for free air limited by supine technique. If there is clinical suspicion for free air correlate with CT scan. 2. Bilateral small pleural effusion and left basilar infiltrate.
[2018-12-31 11:46] LABS: Glucose,Whole Blood 143 mg/dL (75-99)
[2018-12-31] MEDS: LOPERAMIDE 2 MG CAP PO PRN (12:17)
--- NOTE | 2018-12-31 13:10 | P.PN ---
Subjective Progress Note Date: 12/31/18 68-year-old male one of Dr. Graham patient who was admitted to the hospital 12/02/2018 to 12/09/2018 for elective aortic valve placement and one-vessel CABG which is reverse saphenous vein graft to the right coronary artery in by Dr. Irby cardiothoracic. Patient was in the hospital for a few days developed to have A. fib with RVR was started on amiodarone and was back in sinus rhythm. Pulse rate is well-controlled. Patient was transferred to [facility] on leg for rehab. Was seen Dr. Washington today at [facility] on the [place] and found to be in A. fib with RVR pulse rate running about 150 beats per minutes. Also patient was dehydrated dry having hypotension was sent to the emergency department at [facility] where was seen and evaluated found to be in A. fib with RVR with pulse rate rapid. Cardiothoracic and cardiology were inform patient also found to be in acute kidney failure with acute kidney injury most likely ATN creatinine is up to 2.08 from 1.0. Patient was started on gentle hydration Cardizem drip and heparin drip and was admitted to the hospital with above problem. 12/27: Patient is resting in bed without any acute distress. Patient continues to be in A. fib with RVR pulse rate running about 120. Patient denies any difficulty breathing or shortness of breath at this time. Incisional site remains clean and dry. Patient has no new concerns or complaints at this time. WC 4.8, hemoglobin 10.2, platelets 15.7, sodium 140, potassium 5.3, chloride 105, BUN is 32 creatinine 1.81, glucose 200. 12/28: Through the night patient experienced severe abdominal pain. Patient was transferred to the intensive care unit for monitoring. CAT of the abdomen with and without contrast was performed. CT showed small bilateral pleural effusion , compressive atelectasis adjacent to the left pleural effusion, cholelithiasis , diffuse thickening through the cecum and proximal ascending colon. Patient continues to have right lower quadrant abdominal pain and tenderness. Patient denies any nausea or vomiting. Patient continues to be in A. fib with RVR pulse rate running in 115. 12/29: Patient has been evaluated by Dr. Monhaan regarding short segment of colitis likely ischemic from microvascular emboli. Recommend continuing anticoagulation and begin liquid diet, empiric antibiotics plan is for conservative management. He is currently on Rocephin and Flagyl. Patient is also followed by cardiology. He is currently on heparin drip and oral amiodarone. rn hemodialysis charge is atrial flutter. Heart rate is running 95-108, blood pressure 92/60, pulse ox 97% on room air. He has been afebrile. White count is normal some 0.4, hemoglobin 8.9, platelet count 141, creatinine 1.44. Capillary blood glucose running between 150-176. Repeat chest x-ray reveals bibasilar consolidation greater on the left with small left pleural effusion. Echocardiogram reveals EF of 50-55% with moderate concentric left ventricle hypertrophy, mild mitral regurgitation, mild tricuspid regurgitation, small generalized pericardial effusion. Patient is also followed by consultants: nephrology, pulmonary medicine, cardiothoracic surgery. 12/30: Patient remains in intensive care unit awaiting a cardiac stepdown unit bed. He remains on heparin drip also on Flagyl. He complains of diarrhea every 3 hours at least a small amount. Stool will be checked for C. difficile toxin and if negative patient will be started on Imodium. He has no respiratory distress. His found sitting in a recliner and appears to be comfortable. rn hemodialysis charge is atrial flutter rate is controlled 12/31: Patient states the diarrhea is not any better. Lomotil increased 4 mg as needed. No lower extremity edema. No abdominal pain. He is currently on low fiber diet and maintain on IV fluids at 80 mL per hour. He has had good urine output. C. difficile toxin came back negative. Stool for occult blood was positive. He denies any chest pain or shortness of breath BUN 10 and creatinine 1.27. White count is 5.1, hemoglobin 9.1, platelet count 143. He is receiving his second 03 doses of iron infusion. Review of Systems CONSTITUTIONAL: Well-developed no acute respiratory distress. No fever no chills. Reports generalized weakness EYES: No icterus sclerae, no conjunctivitis. EARS, NOSE, MOUTH, THROAT, and FACE: No sore throat, lymphadenopathy, carotid bruits or deformity. RESPIRATORY: Mild shortness of breath no wheezes CARDIOVASCULAR: Positive chest wall pain, positive palpitation and PND GASTROINTESTINAL: Denies right Abd pain, denies Nausea or vomiting, reports Diarrhea denies constipation, No GI Bleed, no distention or masses. GENITOURINARY: Negative for Hematuria or UTI, no kidney stones. INTEGUMENT/BREAST: Negative for any muscular injury with mild osteoarthritis.. HEMATOLOGIC/LYMPHATIC: Negative for bleed or purpura. MUSCULOSKELTAL: Negative for Myalgia or arthralgia. NEURLOGICAL: No LOC, Sz or syncope, blurred vision dizziness or abnormality.. BEHAVIORAL/PSYCH: Negative. ENDOCRINE: Negative. Objective - Vital Signs Vital signs: Vital Signs Temp 97.9 F 12/31/18 08:00 Pulse 115 H 12/31/18 08:00 Resp 16 12/31/18 08:00 BP 117/74 12/31/18 08:00 Pulse Ox 96 12/31/18 08:00 Intake & Output 12/30/18 12/31/18 12/31/18 18:59 06:59 18:59 Intake Total 2519.205 1130.884 538 Output Total 876 735 200 Balance 1643.205 395.884 338 Weight 127.1 kg Intake: IV 1550 900 420 Sodium Chloride 0.9% 1, 1200 800 320 000 ml @ 80 mls/hr IV . [id number] GAETANO Rx#:[id number] Sodium Ferric Gluconat- 100 Sucrose 125 mg In Sodium Chloride 0.9% 100 ml @ 100 mls/hr IVPB DAILY GAETANO Rx#:[id number] cefTRIAXone 1 gm In 50 Sodium Chloride 0.9% 50 ml @ 100 mls/hr IVPB Q24HR GAETANO Rx#:[id number] metroNIDAZOLE-NS PMX 500 200 100 100 mg In Saline 1 100ml.bag @ 100 mls/hr IVPB Q8HR GAETANO Rx#:[id number] Intake, IV Titration 249.205 230.884 Amount Heparin Sod,Pork in 0.45% 249.205 230.884 NaCl 25,000 unit In 0.45 % NaCl 1 250ml.bag @ 6.27 UNITS/KG/HR 8 mls/hr IV .Q24H GAETANO Rx#:[id number] Oral 720 118 Output: Urine 875 735 200 Urine/Stool Mix 1 Other: Voiding Method Urinal # Bowel Movements 1 1 1 - Exam General Appearance: Alert, no distress, appears stated age. Resting in a recliner. Neck HEENT: Supple, no lymphadenopathy, no thyroid enlargement, no carotid bruits. Lungs: Decreased breath sound bilaterally specially in the left side with fine rhonchi no wheezes. Chest Wall: Decrease expansion with deep inspiration no tenderness and no deformity was found on exam, no costochondral pain or discomfort. Incision in the mid sternum area looks good with no sign of infection or induration or redness. Heart: IRRegular rate and rhythm, S1, S2 normal, positive S3, positive aortic valve click no murmur, rub or gallop. Back: Symmetric, no curvature, ROM normal, no CVA tenderness. Abdomen: Soft, minimal tenderness right lower quadrant, no rebound tenderness, bowel sounds active all four quadrants, no masses, no organomegaly. Extremities: Trace edema decreased pulse, positive mild osteoarthritis. Pulses: 2+ and symmetric. Skin: Skin color, texture, tugor normal, no rashes or lesions. Neurologic: Alert oriented x3 cranial nerves II through XII intact, no motor deficit, no abnormal balance or gait. - Labs CBC & Chem 7: 12/31/18 04:24 12/31/18 04:24 Labs: Abnormal Lab Results - Last 24 Hours (Table) 12/30/18 12/30/18 12/31/18 Range/Units 12:12 17:04 04:24 RBC (4.30-5.90) m/uL Hgb (13.0-17.5) gm/dL Hct (39.0-53.0) % MCHC (31.0-37.0) g/dL RDW (11.5-15.5) % Plt Count (150-450) k/uL APTT (22.0-30.0) sec Chloride 115 H (98-107) mmol/L Creatinine 1.27 H (0.66-1.25) mg/dL POC Glucose (mg/dL) 178 H 157 H (75-99) mg/dL 12/31/18 12/31/18 Range/Units 04:24 04:24 RBC 3.07 L (4.30-5.90) m/uL Hgb 9.1 L (13.0-17.5) gm/dL Hct 29.5 L (39.0-53.0) % MCHC 30.7 L (31.0-37.0) g/dL RDW 15.6 H (11.5-15.5) % Plt Count 143 L (150-450) k/uL APTT 37.2 H (22.0-30.0) sec Chloride (98-107) mmol/L Creatinine (0.66-1.25) mg/dL POC Glucose (mg/dL) (75-99) mg/dL Assessment and Plan Plan: 1 A. flutter with RVR and underlying chronic atrial flutter with brief cardiac arrest recovered. Continue amiodarone 200 mg 3 times daily, heparin drip. Cardiology consult appreciated 2 Acute kidney injury with most likely ATN with acute kidney failure decrease GFR significantly avoid nephrotoxic agent, consult with nephrology appreciated. 3 post aortic valve placement: Successful surgery so far with no major complication. Continue incentive spirometery, consult with cardiothoracic surgery appreciated 4 post one-vessel CABG was reverse saphenous to the RCI stable so far. 5 type 2 diabetes: Has been on Humalog and long acting insulin resume both continue Accu-Chek with sliding scales coverage. 6 Hypertension: Continue metoprolol and amiodarone. 7 Hyperlipidemia: Continue patient on atorvastatin 40 mg daily. 8. Recurrent depression. Continue Celexa 20 mg daily. 9. COPD: Continue patient on albuterol/ipratropium nebulizer continue O2 try to keep pulse ox above 90 percentile. 10. Ischemic colitis: Surgical consult appreciated, plan for conservative management. Continue Flagyl 500 grams every 8 hours IV piggyback, Rocephin 1 g IV piggyback every 24 hours. Low fiber diet. Patient is on heparin drip. 11 GI prophylaxis/GERD: Continue patient on pantoprazole 40 mg daily. 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 13. Chronic pain syndrome. Continue Lyrica 100 mg twice daily. 14. History of bilateral hip replacements and postop infections requiring chronic suppressive antibiotic therapy with doxycycline under the care of Dr. Ricci. 15. Chronic kidney disease stage II. 16. Diarrhea. Stool to be sent for C. difficile toxin. Lomotil increased. CODE STATUS: Full code. Discharge plan: Return to [facility] on Saturday Impression and plan of care have been directed as dictated by the signing physician. Bryanna Coker nurse practitioner acting as scribe for signing physician.
[2018-12-31] MEDS: SODIUM CHLORIDE 0.9% 1,000 ML IV SCH (16:32)
--- NOTE | 2018-12-31 16:42 | P.PN ---
Subjective Progress Note Date: 12/31/18 This is a 68-year-old male patient with known history of coronary artery disease and the patient underwent a single-vessel bypass surgery and aortic valve replacement on 12/02/2018 in our institution. The patient is also known to have hypertension and hyperlipidemia and diabetes mellitus and peripheral neuropathy. Is a former smoker. I was involved in this patient's postoperative care. The patient did well. The patient was discharged to [facility] on [facility] on on 12/09/2018. Note that the patient's aortic valve are present was done for severe aortic stenosis. He has some background COPD with an FEV1 of 56% of predicted. He is obese and his BMI is at 38.3. The patient did develop atrial fibrillation following his surgery. He did convert to normal sinus rhythm after he was given amiodarone. Upon discharge, he was given amiodarone 400 mg by mouth twice a day in addition to aspirin and metoprolol 50 mg by mouth twice a day. He was also given Lasix 40 mg by mouth daily. He was asked to continue Levemir insulin 40 units at bedtime and 20 units in the morning in addition to DuoNeb nebulized treatments on the clock. His regimen also includes a combination of aspirin and Plavix. He has also history of herpetic infection for which she is on Valtrex. The patient came in to the emergency department after he was found by his primary care physician to be in atrial fibrillation/flutter with rapid ventricular response. The patient was initially resting comfortably in his bed and he was not having any significant distress. He denies having any symptoms of chest pain or shortness of breath or dizziness. He stated that his heart was racing. In the emergency department, the patient was also found to be acute kidney injury. The creatinine at time of admission was 2.09 knowing that time of the chest creatinine was completely within normal limits. His current creatinine is at 1.8. The patient was initially admitted to [facility] where he was started on amiodarone bolus and while the bolus was infusing the patient went unresponsive. According to the rhythm strips, the patient had a positive around 5 seconds and he was briefly given CPR. He did wake up within a few seconds. The patient had a bowel movement following that and he also felt diaphoretic. He got moved to the intensive care unit. His current rhythm is a flutter with a rate of 117-120. He is on no amiodarone drip. He is taking metoprolol the dose of which was modified and the patient is currently taking 75 mg by mouth twice a day. He is also started on long-term anticoagulation with Eliquis. His sternum is stable clean and intact. He has not voided yet. He is receiving IV fluids in order of 80 mL an hour and he will be receiving IV fluid bolus as recommended by cardiology. Echocardiogram was done and the patient has a preserved LV function with an ejection fraction of 50-55% and there is no other valvular abnormalities. The aortic valve was not well visualized and the peak gradient across the valve was 11 mmHg and it is a normally functioning bioprosthetic valve. The right ventricular systolic pressure was not measured as there was no tricuspid regurgitation jet. On today's evaluation of 12/28/2018, the patient remains in atrial flutter. The rate is under better control and the patient is less tachycardic. He briefly went into a sinus rhythm yesterday however subsequently went back into a flutter rhythm. No chest pain. No palpitation. No shortness of breath. He did complain of right lower quadrant pain today. On examination he had direct and rebound tenderness. Based on that, he was sent for a stat CAT scan of the abdomen and pelvis that showed evidence of cecal inflammation. The area in the cecum was quite inflamed and swollen and there was diffuse thickening through the cecum and proximal ascending colon. For this reason, the patient was started on a combination of IV Rocephin and Flagyl. Gen. surgery was consulted. The patient likely had an embolic phenomena as the patient went into atrial flutter and he could've embolized to his bowel. Ischemic colitis, hypotension is another possibility. In any rate, the patient was seen by general surgery. He is not having any nausea or vomiting. His abdominal pain is around 2 out of 10 in severity. No altered mentation. His lactic acid level came back at 3.2. He is on IV fluids. He was given another bolus yesterday and his creatinine is improving and is down to 1.38. He is back on oral amiodarone 200 mg by mouth 3 times a day. He is also on metoprolol 75 mg by mouth twice a day and his heart rate is under much better control and today' s evaluation. On today's evaluation of 12/29/2018, the patient remains in a slower rate atrial flutter. He is doing well per no chest pain no shortness of breath. He still having right lower quadrant pain and would believe that the patient embolic phenomena causing acute inflammation of the cecum/ascending colon. He is on a combination of Rocephin and Flagyl. He is passing flatus per no signs of any bowel obstruction. No nausea or vomiting. He is tolerating clear liquid diet. His white cell count is at 7.4. His BUN is at 20 with a creatinine of 1.4. He remains on IV heparin and his PTT is therapeutic at this point in time. No fever. No chills. No chest pain. No shortness of breath. Resting comfortably in bed. Surgeries on the case regarding the abdominal findings. On 12/30/2018 the patient remains in intensive care unit. The patient remains in a a flutter rhythm and the rate is as high as low 100s and typically is running in the 80 beats per minute range. The patient is also on IV heparin. The patient is on oral amiodarone. No respiratory distress. His resting comfortably in bed. He is taking clear liquid diet. He still has a right abdominal quadrant tenderness in the right lower quadrant area. The overall tenderness is unchanged compared to yesterday. He has no abdominal distention. His passing flatus. I do not think there is any change in his abdominal exam compared to yesterday. Remains afebrile. No significant leukocytosis. He is not toxic at all. He is still receiving normal state rate of 80 mL an hour. He is on IV Rocephin and Flagyl as broad-spectrum antibiotic coverage. On 12/31/2018 [address] Mr. coronel for a follow-up. His condition essentially the same. No fever. No chills. He is having loose liquidy bowel movements. The Abdomen Shows No Free Air. He Remains in Atrial Flutter. He is taking, consistent low fiber diet. He is emanating in the hallway. No chest pain. No fever or chills. He remains on the same antibiotic coverage. Right lower quadrant remains tender. The metoprolol dose was increased up to 100 mg by mouth twice a day. He remains on a combination of Rocephin and Flagyl. He is also on amiodarone 400 mg by mouth 3 times a day. He remains on IV heparin and no plans to initiate long-term anticoagulation yet filled the abdominal findings improve Objective - Vital Signs Vital signs: Vital Signs Temp 98.1 F 12/31/18 16:00 Pulse 115 H 12/31/18 16:00 Resp 17 12/31/18 16:00 BP 102/70 12/31/18 16:00 Pulse Ox 96 12/31/18 16:00 Intake & Output 12/30/18 12/31/18 12/31/18 18:59 06:59 18:59 Intake Total 2519.205 5561.124 1147.246 Output Total 876 735 575 Balance 1643.205 974.745 8211.246 Weight 127.1 kg Intake: IV 0793 335 1445 Sodium Chloride 0.9% 1, 1200 800 960 000 ml @ 80 mls/hr IV . [id number] GAETANO Rx#:[id number] Sodium Ferric Gluconat- 100 100 Sucrose 125 mg In Sodium Chloride 0.9% 100 ml @ 100 mls/hr IVPB DAILY GAETANO Rx#:[id number] cefTRIAXone 1 gm In 50 50 Sodium Chloride 0.9% 50 ml @ 100 mls/hr IVPB Q24HR GAETANO Rx#:[id number] metroNIDAZOLE-NS PMX 500 200 100 200 mg In Saline 1 100ml.bag @ 100 mls/hr IVPB Q8HR GAETANO Rx#:[id number] Intake, IV Titration 249.205 230.884 108.246 Amount Heparin Sod,Pork in 0.45% 249.205 230.884 108.246 NaCl 25,000 unit In 0.45 % NaCl 1 250ml.bag @ 6.27 UNITS/KG/HR 8 mls/hr IV .Q24H GAETANO Rx#:[id number] Oral 720 958 Output: Urine 875 735 575 Urine/Stool Mix 1 Other: Voiding Method Urinal # Bowel Movements 1 1 1 - Exam GENERAL: This is a 68-year-old male in no apparent distress at the time of my examination. HEENT: Head is atraumatic, normocephalic. Pupils are equal, round. Sclerae anicteric. Conjunctivae are clear. Mucous membranes of the mouth are moist. Neck is supple. There is no jugular venous distention. No carotid bruit is heard. LUNGS: Clear to auscultation no wheezes, rales or rhonchi. No chest wall tenderness is noted on palpation or with deep breathing. HEART: Irregular rate and rhythm with systolic ejection murmur at the base, no rubs or gallops. S1 and S2 heard. Heart [address]. Sternal scar noted clean dry and intact. ABDOMEN: Soft, tender. Bowel sounds are heard. No organomegaly noted. The patient has direct tenderness in his right lower quadrant area. there is some rebound tenderness. No guarding. No ascites. Bowel sounds are hypoactive at the present.EXTREMITIES: No evidence of peripheral edema and no calf tenderness noted. VASCULAR: Radial and dorsalis pedis pulses palpated, no evidence of clubbing. NEUROLOGIC: Patient is awake, alert and oriented x3. - Labs CBC & Chem 7: 12/31/18 04:24 12/31/18 04:24 Labs: Abnormal Lab Results - Last 24 Hours (Table) 12/30/18 12/31/18 12/31/18 Range/Units 17:04 04:24 04:24 RBC 3.07 L (4.30-5.90) m/uL Hgb 9.1 L (13.0-17.5) gm/dL Hct 29.5 L (39.0-53.0) % MCHC 30.7 L (31.0-37.0) g/dL RDW 15.6 H (11.5-15.5) % Plt Count 143 L (150-450) k/uL APTT (22.0-30.0) sec Chloride 115 H (98-107) mmol/L Creatinine 1.27 H (0.66-1.25) mg/dL POC Glucose (mg/dL) 157 H (75-99) mg/dL 12/31/18 12/31/18 12/31/18 Range/Units 04:24 11:11 11:45 RBC (4.30-5.90) m/uL Hgb (13.0-17.5) gm/dL Hct (39.0-53.0) % MCHC (31.0-37.0) g/dL RDW (11.5-15.5) % Plt Count (150-450) k/uL APTT 37.2 H 132.5 H* (22.0-30.0) sec Chloride (98-107) mmol/L Creatinine (0.66-1.25) mg/dL POC Glucose (mg/dL) 143 H (75-99) mg/dL Assessment and Plan Plan: Assessment 1 atrial flutter with rapid ventricular response , the patient achieved a better rate control with a combination of high-dose metoprolol and amiodarone. The patient is on IV heparin. He remains in atrial flutter. 2 coronary artery disease with a recent single-vessel bypass surgery 3 acute right lower quadrant pain with evidence of diffuse bowel thickening involving the cecum and ascending colon, consider embolism to the got due to an underlying atrial flutter. Patient will be started on IV heparin. Patient's abdominal exam is unchanged compared to yesterday. No significant leukocytosis. No lactic acidosis. He still has some right lower quadrant pain. He is tolerating clear liquid diet. Passing flatus and bowel movements and there is no signs of bowel perforation or obstruction. On today's evaluation, there is no significant changes abdominal exam compared to yesterday. Diet has been advanced to Consistent low fiber diet. 4 diabetes mellitus type 2 with peripheral neuropathy 5 hypertension, history of 6 acute kidney injury, improving and the creatinine is down to 1.2 7 hyperlipidemia 8 COPD with a baseline FEV1 of 56% of predicted 9 history of depression 10 history of shingles currently on Valtrex for chronic suppression 11 history of right and left hip replacement with postoperative infections requiring antibiotics and the patient has been maintained on doxycycline outpatient basis 12 normocytic anemia Plan Keep the patient in intensive care unit. Continue same antibiotic coverage. Continue the patient IV heparin. Abdominal exam compared to yesterday's essentially the same. Flat film of the abdomen that is no evidence of any free air. The patient is passing bowel movements. The patient is tolerating his diet. No other significant events otherwise for now. Continue IV heparin. Continue antibiotics. We'll follow.
[2018-12-31 16:55] LABS: Glucose,Whole Blood 106 mg/dL (75-99)
--- NOTE | 2018-12-31 18:39 | PN ---
PROGRESS NOTE This patient is admitted with atrial flutter. Patient subsequently developed ischemic colitis due to embolic embolism. Patient remains in atrial flutter. Patient's heart rate remains in the range of 100-120. Patient remains otherwise clinically stable. Blood pressure is 102/70 mmHg. First and second heart sounds are heard. Lungs are clear to auscultation and percussion. Patient is tolerating the diet fairly well. He is currently still getting IV heparin. We will increase the dose of Lopressor to 100 mg b.i.d. MMODL / IJN: [id number] /
[2018-12-31 21:19] LABS: Glucose,Whole Blood 119 mg/dL (75-99)
[2018-12-31] MEDS: METOPROLOL TARTRATE 50 MG TAB PO SCH (21:19)
[2019-01-01] MEDS: SODIUM CHLORIDE 0.9% 1,000 ML IV SCH (05:14)
[2019-01-01 06:00] LABS: Anisocytosis Slight; Basophils % (A) 0 %; Eosinophils # (A) 0.4 k/uL (0-0.7); Eosinophils % (A) 7 %; HCT 29.7 % (39.0-53.0); HGB 9.4 gm/dL (13.0-17.5); Hypochromasia Marked; Lymphocytes % (A) 21 %; MCH 31.1 pg (25.0-35.0); MCHC 31.5 g/dL (31.0-37.0); MCV 98.6 fL (80.0-100.0); Macrocytosis Slight; Mean Platelet Volume 6.7; Monocytes # (A) 0.3 k/uL (0-1.0); Monocytes % (A) 5 %; Neutrophils # (A) 3.2 k/uL (1.3-7.7); Neutrophils % (A) 64 %; Platelet Count 153 k/uL (150-450); Poikilocytosis Moderate; RBC 3.02 m/uL (4.30-5.90)
[2019-01-01 06:13] LABS: Calcium 8.6 mg/dL (8.4-10.2); Potassium 4.2 mmol/L (3.5-5.1)
--- NOTE | 2019-01-01 08:22 | P.PN ---
Subjective Progress Note Date: 01/01/19 Principal diagnosis: New-onset atrial flutter, acute kidney injury, right lower quadrant abdominal pain. 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 The patient is currently sitting up in the recliner in no acute distress in the intensive care unit. He remains in atrial flutter with with better rate control since increase in Lopressor, currently on heparin IV and oral amiodarone. States his abdominal pain is all but gone. He has had no nausea or emesis. He is tolerating full diet. He confirms episodes of diarrhea had decreased significantly. He remains afebrile with no leukocytosis. States he expects to be returned to [facility] tomorrow. Objective - Vital Signs Vital signs: Vital Signs Temp 97.8 F 01/01/19 04:00 Pulse 74 01/01/19 04:00 Resp 14 01/01/19 04:00 BP 108/58 01/01/19 04:00 Pulse Ox 97 01/01/19 04:00 Intake & Output 12/31/18 01/01/19 01/01/19 18:59 06:59 18:59 Intake Total 2776.246 960 Output Total 575 950 Balance 2201.246 10 Weight 125 kg Intake: IV 1470 960 Sodium Chloride 0.9% 1, 1120 960 000 ml @ 80 mls/hr IV . [id number] [facility] Rx#:[id number] Sodium Ferric Gluconat- 100 Sucrose 125 mg In Sodium Chloride 0.9% 100 ml @ 100 mls/hr IVPB DAILY [facility] Rx#:[id number] cefTRIAXone 1 gm In 50 Sodium Chloride 0.9% 50 ml @ 100 mls/hr IVPB Q24HR [facility] Rx#:[id number] metroNIDAZOLE-NS PMX 500 200 mg In Saline 1 100ml.bag @ 100 mls/hr IVPB Q8HR [facility] Rx#:[id number] Intake, IV Titration 108.246 Amount Heparin Sod,Pork in 0.45% 108.246 NaCl 25,000 unit In 0.45 % NaCl 1 250ml.bag @ 6.27 UNITS/KG/HR 8 mls/hr IV .Q24H [facility] Rx#:[id number] Oral 1198 Output: Urine 575 950 Other: Voiding Method Urinal Urinal # Voids 1 # Bowel Movements 1 - Constitutional General appearance: Present: cooperative, morbidly obese, no acute distress - Respiratory Details: Lungs sounds diminished bilaterally. Respirations even, nonlabored. Currently on room air with oxygen saturation 97%. Able to achieve 1250 mL on his incentive spirometry. Strong cough. - Cardiovascular Details: S1, S2 present. Regular, occasionally irregular rate and rhythm, atrial flutter on telemetry. Sternum stable. Palpable peripheral pulses bilaterally. Trace right lower extremity edema present. No calf pain or tenderness noted. Heart hugger in place with patient demonstrating appropriate use. Antiembolism stockings, SCDs present. - Gastrointestinal Gastrointestinal Comment(s): Abdomen soft, nontender, nondistended, obese. Active bowel sounds present 4 quadrants. Tolerating full diet. Positive diarrhea with less frequency. - Genitourinary Genitourinary Comment(s): Continues to void clear, yellow urine. Output overnight 950 mL. - Integumentary Integumentary Comment(s): Skin is warm and dry with evidence of good perfusion. Anterior chest incision well approximated and covered with Dermabond dressing. Right lower extremity EVH site well approximated. - Neurologic Neurologic: Present: CNII-XII intact - Musculoskeletal Musculoskeletal: Present: gait normal, strength equal bilaterally - Psychiatric Psychiatric: Present: A&O x's 3, appropriate affect, intact judgment & insight - Allied health notes Allied health notes reviewed: nursing - Labs CBC & Chem 7: 01/01/19 05:15 01/01/19 05:15 Labs: Abnormal Lab Results - Last 24 Hours (Table) 12/31/18 12/31/18 12/31/18 Range/Units 11:11 11:45 16:54 RBC (4.30-5.90) m/uL Hgb (13.0-17.5) gm/dL Hct (39.0-53.0) % RDW (11.5-15.5) % APTT 132.5 H* (22.0-30.0) sec Chloride (98-107) mmol/L Carbon Dioxide (22-30) mmol/L Glucose (74-99) mg/dL POC Glucose (mg/dL) 143 H 106 H (75-99) mg/dL 12/31/18 12/31/18 01/01/19 Range/Units 18:54 21:17 05:15 RBC (4.30-5.90) m/uL Hgb (13.0-17.5) gm/dL Hct (39.0-53.0) % RDW (11.5-15.5) % APTT 57.6 H (22.0-30.0) sec Chloride 115 H (98-107) mmol/L Carbon Dioxide 20 L (22-30) mmol/L Glucose 69 L (74-99) mg/dL POC Glucose (mg/dL) 119 H (75-99) mg/dL 01/01/19 01/01/19 Range/Units 05:15 05:15 RBC 3.02 L (4.30-5.90) m/uL Hgb 9.4 L (13.0-17.5) gm/dL Hct 29.7 L (39.0-53.0) % RDW 16.0 H (11.5-15.5) % APTT 53.2 H (22.0-30.0) sec Chloride (98-107) mmol/L Carbon Dioxide (22-30) mmol/L Glucose (74-99) mg/dL POC Glucose (mg/dL) (75-99) mg/dL - Imaging and Cardiology Chest x-ray: image reviewed Assessment and Plan Assessment: 1. New-onset atrial flutter, rate better controlled 2. Acute kidney injury, resolving 3. Right lower quadrant abdominal pain, resolving 4. History of aortic stenosis status post bioprosthetic aortic valve replacement 5. History of coronary artery disease status post bypass surgery 6. Postoperative atrial fibrillation, in normal sinus rhythm upon discharge from the hospital 7. Hypertension 8. Hyperlipidemia 9. Morbid obesity 10. Diabetes mellitus with recent hemoglobin A1c 6.3% 11. Previous tobacco dependence, mild COPD with recent FEV1 56% of predicted 12. 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 Continue amiodarone, IV heparin. Per Dr. Velez he will leave the patient anticoagulated for approximately 6 weeks and then attempt cardioversion. 2. Continue aspirin, statin, beta paul therapy. Increased to 100 mg twice daily yesterday with better rate control. 3. Continue antibiotics, diet per general surgery. 4. Avoid nephrotoxins. 5. Encourage use of incentive spirometer. Bronchodilators per pulmonology. 6. Will monitor daily labs and x-rays. 7. Pain control with current medication regimen. 8. GI prophylaxis with Protonix, DVT prophylaxis with IV heparin, SCDs. 9. Increase activity, ambulate as tolerated. PT/OT following. Patient should be out of bed for all meals. 10. May transfer out of ICU to cardiac stepdown unit from our standpoint. 11. More recommendations to follow. Time with Patient: Greater than 30
--- NOTE | 2019-01-01 08:54 | XR ---
EXAMINATION TYPE: XR chest 1V DATE OF EXAM: 01/01/2019 COMPARISON: 12/31/2018 HISTORY: Abnormal x-ray TECHNIQUE: Single frontal view of the chest is obtained. FINDINGS: Bilateral consolidation and small effusion noted. Cardiomegaly and postsurgical changes. B iapical pleural thickening. Arthropathy of the shoulders. No pneumothorax. Central interstitial promi nence noted. IMPRESSION: 1. Bilateral infiltrate and small effusion greater on the left correlate for CHF. Otherwise consider pneumonia.
[2019-01-01] MEDS: INSULIN ASPART (NovoLOG) 100 UNIT/ML VIAL SQ SCH ×7 (09:10→21:29)
[2019-01-01] MEDS: CITALOPRAM HYDROBROMIDE 20 MG TAB PO SCH (09:13)
[2019-01-01] MEDS: ATORVASTATIN 40 MG TAB PO SCH (09:13)
[2019-01-01] MEDS: AMIODARONE 200 MG TAB PO SCH ×3 (09:13→21:37)
[2019-01-01] MEDS: ASPIRIN 81 MG PO SCH (09:13)
[2019-01-01] MEDS: CHOLECALCIFEROL 1,000 UNIT TAB PO SCH (09:13)
[2019-01-01] MEDS: METOPROLOL TARTRATE 50 MG TAB PO SCH ×2 (09:14→21:29)
[2019-01-01] MEDS: INSULIN DETEMIR (LEVEMIR) 100 UNIT/ML SYR SQ SCH ×2 (09:14→21:34)
[2019-01-01] MEDS: PREGABALIN 100 MG CAP PO SCH ×2 (09:15→21:29)
[2019-01-01] MEDS: valACYclovir 500 MG TAB PO SCH (09:15)
[2019-01-01] MEDS: PANTOPRAZOLE 40 MG TABLET PO SCH (09:16)
[2019-01-01] MEDS: IPRATROPIUM-ALBUTEROL 3 ML NEB INHALATION SCH ×4 (09:18→20:39)
[2019-01-01] MEDS: metroNIDAZOLE-NS PMX 500 MG in SALINE 1 100ML.BAG IVPB SCH (09:23)
--- NOTE | 2019-01-01 09:44 | P.PN ---
Subjective Patient is seen in follow-up for acute kidney injury. Patient's basic creatinine is 1 and peaked at 2.09 this admission. It is stable at 1.23 today. He's currently maintained on normal saline at 80 mL an hour. No diarrhea overnight. C. diff was negative. Admits to good urine output. Denies chest pain or shortness of breath. Oral intake is good. Vital signs are stable. General: The patient appeared well nourished and normally developed. HEENT: Head exam is unremarkable. Neck is without jugular venous distension. LUNGS: Lungs are clear to auscultation and percussion. Breath sounds decreased. HEART: Rate and Rhythm are regular. First and second heart sounds normal. No murmurs, rubs or gallops. ABDOMEN: Abdominal exam reveals normal bowel sounds. Non-tender and non- distended. No evidence of peritonitis. EXTREMITITES: No clubbing, cyanosis, or edema. Objective - Vital Signs Vital signs: Vital Signs Temp 97.9 F 01/01/19 08:00 Pulse 115 H 01/01/19 09:29 Resp 13 01/01/19 08:00 BP 108/62 01/01/19 08:00 Pulse Ox 96 01/01/19 08:00 Intake & Output 12/31/18 01/01/19 01/01/19 18:59 06:59 18:59 Intake Total 2776.246 960 160 Output Total 575 950 Balance 2201.246 10 160 Weight 125 kg Intake: IV 1470 960 160 Sodium Chloride 0.9% 1, 1120 960 160 000 ml @ 80 mls/hr IV . [id number] [facility] Rx#:[id number] Sodium Ferric Gluconat- 100 Sucrose 125 mg In Sodium Chloride 0.9% 100 ml @ 100 mls/hr IVPB DAILY [facility] Rx#:[id number] cefTRIAXone 1 gm In 50 Sodium Chloride 0.9% 50 ml @ 100 mls/hr IVPB Q24HR [facility] Rx#:[id number] metroNIDAZOLE-NS PMX 500 200 mg In Saline 1 100ml.bag @ 100 mls/hr IVPB Q8HR [facility] Rx#:[id number] Intake, IV Titration 108.246 Amount Heparin Sod,Pork in 0.45% 108.246 NaCl 25,000 unit In 0.45 % NaCl 1 250ml.bag @ 6.27 UNITS/KG/HR 8 mls/hr IV .Q24H [facility] Rx#:[id number] Oral 1198 Output: Urine 575 950 Other: Voiding Method Urinal Urinal Urinal # Voids 1 1 # Bowel Movements 1 - Labs CBC & Chem 7: 01/01/19 05:15 01/01/19 05:15 Labs: Abnormal Lab Results - Last 24 Hours (Table) 12/31/18 12/31/18 12/31/18 Range/Units 11:11 11:45 16:54 RBC (4.30-5.90) m/uL Hgb (13.0-17.5) gm/dL Hct (39.0-53.0) % RDW (11.5-15.5) % APTT 132.5 H* (22.0-30.0) sec Chloride (98-107) mmol/L Carbon Dioxide (22-30) mmol/L Glucose (74-99) mg/dL POC Glucose (mg/dL) 143 H 106 H (75-99) mg/dL 12/31/18 12/31/18 01/01/19 Range/Units 18:54 21:17 05:15 RBC (4.30-5.90) m/uL Hgb (13.0-17.5) gm/dL Hct (39.0-53.0) % RDW (11.5-15.5) % APTT 57.6 H (22.0-30.0) sec Chloride 115 H (98-107) mmol/L Carbon Dioxide 20 L (22-30) mmol/L Glucose 69 L (74-99) mg/dL POC Glucose (mg/dL) 119 H (75-99) mg/dL 01/01/19 01/01/19 Range/Units 05:15 05:15 RBC 3.02 L (4.30-5.90) m/uL Hgb 9.4 L (13.0-17.5) gm/dL Hct 29.7 L (39.0-53.0) % RDW 16.0 H (11.5-15.5) % APTT 53.2 H (22.0-30.0) sec Chloride (98-107) mmol/L Carbon Dioxide (22-30) mmol/L Glucose (74-99) mg/dL POC Glucose (mg/dL) (75-99) mg/dL Assessment and Plan Plan: Assessment: 1. Acute kidney injury secondary to ATN secondary to intravascular volume depletion from diarrhea as well as hemodynamic instability. Creatinine 1.23 today. Baseline creatinine near 1. No evidence of hydronephrosis or infarct noted on CAT scan of the abdomen and pelvis. 2. Diarrhea. Possibly ischemic colitis from microvascular emboli. Maintained on antibiotics. Gen. surgery following. C. diff negative. 3. Atrial flutter. Maintained on amiodarone and IV heparin. 4. Insulin-dependent diabetes mellitus. 5. Anemia. Iron deficiency noted. Plan: Hep-Lock IV fluids. Avoid nephrotoxins. Continue to hold DARWIN inhibitor for now. IV iron x 3 doses. Third dose today.
[2019-01-01] MEDS: APIXABAN 5 MG TAB PO SCH ×2 (11:16→21:29)
[2019-01-01] MEDS: SODIUM FERRIC GLUCONAT-SUCROSE 125 MG in SODIUM CHLORIDE 0.9% 100 ML IVPB SCH (11:16)
--- NOTE | 2019-01-01 11:35 | CDI ---
Documentation Clarification Form Date: 01/01/2019 11:03:30 AM From: Emely Lagunas RN, CCDS Admit Date: 12/26/2018 6:46:00 PM Patient Name: Nick Morales Visit Number: [id number] Discharge Date: ATTENTION: The Clinical Documentation Specialists (CDI) and [facility] Coding Staff appreciate your assistance in clarifying documentation. Please respond to the clarification below the line at the bottom and electronically sign. The CDI & [facility] Coding staff will review the response and follow-up if needed. Please note: Queries are made part of the Legal Health Record. If you have any questions, please contact the author of this message via ITS. Dr. Angle Velez Atrial Flutter is documented in the consultation and your ongoing progress notes History/Risk factors: Hypertension, Diabetes Mellitus, recent single vessel CABG and Aortic Valve replacement, Atrial fibrillation Clinical Indicators: 68-year-old male presented to the hospital with increased fatigue, dizziness with position changes and was noted to be in atrial flutter with rapid ventricular response . EKG/telemetry: On 12/27/18: 2:1 atrial flutter rate 123 with incomplete right bundle branch block and inferior Q-waves ECHO: The rhythm appears to be atrial flutter. EF between 50-55 % Treatment: Telemetry Monitoring Amiodarone Drip (change to PO Heparin IV change to Eliquis PO IV Fluids In your professional opinion, in order to capture the severity of condition; can you please clarify the type of Atrial Flutter if known? Typical/Type I Atypical/Type II Other, please specify Unable to determine (Last Revision: February 2018) MTDD
[2019-01-01 12:12] LABS: Glucose,Whole Blood 90 mg/dL (75-99)
--- NOTE | 2019-01-01 13:22 | P.PN ---
Progress Note - Text Progress Note Date: 01/01/19 Patient has typical atrial flutter. DNP note has been reviewed, I agree with a documented findings and plan of care. Patient was seen and examined.
--- NOTE | 2019-01-01 14:17 | P.PN ---
Subjective Progress Note Date: 01/01/19 Principal diagnosis: Ischemic colitis Patient doing well today. Pain is much improved today he states. White blood cell count normal. He is afebrile. Tolerating diet. Objective - Vital Signs Vital signs: Vital Signs Temp 98.3 F 01/01/19 12:00 Pulse 90 01/01/19 12:22 Resp 16 01/01/19 12:00 BP 96/94 01/01/19 12:00 Pulse Ox 96 01/01/19 12:00 Intake & Output 12/31/18 01/01/19 01/01/19 18:59 06:59 18:59 Intake Total 2776.246 960 160 Output Total 575 950 200 Balance 2201.246 10 -40 Weight 125 kg Intake: IV 1470 960 160 Sodium Chloride 0.9% 1, 1120 960 160 000 ml @ 80 mls/hr IV . [id number] [facility] Rx#:[id number] Sodium Ferric Gluconat- 100 Sucrose 125 mg In Sodium Chloride 0.9% 100 ml @ 100 mls/hr IVPB DAILY [facility] Rx#:[id number] cefTRIAXone 1 gm In 50 Sodium Chloride 0.9% 50 ml @ 100 mls/hr IVPB Q24HR [facility] Rx#:[id number] metroNIDAZOLE-NS PMX 500 200 mg In Saline 1 100ml.bag @ 100 mls/hr IVPB Q8HR [facility] Rx#:[id number] Intake, IV Titration 108.246 Amount Heparin Sod,Pork in 0.45% 108.246 NaCl 25,000 unit In 0.45 % NaCl 1 250ml.bag @ 6.27 UNITS/KG/HR 8 mls/hr IV .Q24H [facility] Rx#:[id number] Oral 1198 Output: Urine 575 950 200 Other: Voiding Method Urinal Urinal Urinal # Voids 1 1 # Bowel Movements 1 - Exam Abdomen: Soft, nondistended, mild right lower quadrant tenderness - Labs CBC & Chem 7: 01/01/19 05:15 01/01/19 05:15 Labs: Abnormal Lab Results - Last 24 Hours (Table) 12/31/18 12/31/18 12/31/18 Range/Units 16:54 18:54 21:17 RBC (4.30-5.90) m/uL Hgb (13.0-17.5) gm/dL Hct (39.0-53.0) % RDW (11.5-15.5) % APTT 57.6 H (22.0-30.0) sec Chloride (98-107) mmol/L Carbon Dioxide (22-30) mmol/L Glucose (74-99) mg/dL POC Glucose (mg/dL) 106 H 119 H (75-99) mg/dL 01/01/19 01/01/19 01/01/19 Range/Units 05:15 05:15 05:15 RBC 3.02 L (4.30-5.90) m/uL Hgb 9.4 L (13.0-17.5) gm/dL Hct 29.7 L (39.0-53.0) % RDW 16.0 H (11.5-15.5) % APTT 53.2 H (22.0-30.0) sec Chloride 115 H (98-107) mmol/L Carbon Dioxide 20 L (22-30) mmol/L Glucose 69 L (74-99) mg/dL POC Glucose (mg/dL) (75-99) mg/dL Assessment and Plan (1) Acute ischemic colitis Narrative/Plan: Continue diet as tolerated. Continue on a coagulation. Patient being discharged tomorrow which seems reasonable at this point. Current Visit: Yes Status: Acute Code(s): K55.039 - ACUTE ISCHEMIA OF LARGE INTESTINE, EXTENT UNSPECIFIED SNOMED Code(s): 37467671
[2019-01-01 15:02] VITALS: BMI 39.5
--- NOTE | 2019-01-01 15:15 | P.PN ---
Subjective Progress Note Date: 01/01/19 68-year-old male one of Dr. Graham patient who was admitted to the hospital 12/02/2018 to 12/09/2018 for elective aortic valve placement and one-vessel CABG which is reverse saphenous vein graft to the right coronary artery in by Dr. Irby cardiothoracic. Patient was in the hospital for a few days developed to have A. fib with RVR was started on amiodarone and was back in sinus rhythm. Pulse rate is well-controlled. Patient was transferred to [facility] on leg for rehab. Was seen Dr. Washington today at [facility] on the [place] and found to be in A. fib with RVR pulse rate running about 150 beats per minutes. Also patient was dehydrated dry having hypotension was sent to the emergency department at [facility] where was seen and evaluated found to be in A. fib with RVR with pulse rate rapid. Cardiothoracic and cardiology were inform patient also found to be in acute kidney failure with acute kidney injury most likely ATN creatinine is up to 2.08 from 1.0. Patient was started on gentle hydration Cardizem drip and heparin drip and was admitted to the hospital with above problem. 12/27: Patient is resting in bed without any acute distress. Patient continues to be in A. fib with RVR pulse rate running about 120. Patient denies any difficulty breathing or shortness of breath at this time. Incisional site remains clean and dry. Patient has no new concerns or complaints at this time. WC 4.8, hemoglobin 10.2, platelets 15.7, sodium 140, potassium 5.3, chloride 105, BUN is 32 creatinine 1.81, glucose 200. 12/28: Through the night patient experienced severe abdominal pain. Patient was transferred to the intensive care unit for monitoring. CAT of the abdomen with and without contrast was performed. CT showed small bilateral pleural effusion , compressive atelectasis adjacent to the left pleural effusion, cholelithiasis , diffuse thickening through the cecum and proximal ascending colon. Patient continues to have right lower quadrant abdominal pain and tenderness. Patient denies any nausea or vomiting. Patient continues to be in A. fib with RVR pulse rate running in 115. 12/29: Patient has been evaluated by Dr. Monahan regarding short segment of colitis likely ischemic from microvascular emboli. Recommend continuing anticoagulation and begin liquid diet, empiric antibiotics plan is for conservative management. He is currently on Rocephin and Flagyl. Patient is also followed by cardiology. He is currently on heparin drip and oral amiodarone. night monitor is atrial flutter. Heart rate is running 95-108, blood pressure 92/60, pulse ox 97% on room air. He has been afebrile. White count is normal some 0.4, hemoglobin 8.9, platelet count 141, creatinine 1.44. Capillary blood glucose running between 150-176. Repeat chest x-ray reveals bibasilar consolidation greater on the left with small left pleural effusion. Echocardiogram reveals EF of 50-55% with moderate concentric left ventricle hypertrophy, mild mitral regurgitation, mild tricuspid regurgitation, small generalized pericardial effusion. Patient is also followed by consultants: nephrology, pulmonary medicine, cardiothoracic surgery. 12/30: Patient remains in intensive care unit awaiting a cardiac stepdown unit bed. He remains on heparin drip also on Flagyl. He complains of diarrhea every 3 hours at least a small amount. Stool will be checked for C. difficile toxin and if negative patient will be started on Imodium. He has no respiratory distress. His found sitting in a recliner and appears to be comfortable. night monitor is atrial flutter rate is controlled 12/31: Patient states the diarrhea is not any better. Lomotil increased 4 mg as needed. No lower extremity edema. No abdominal pain. He is currently on low fiber diet and maintain on IV fluids at 80 mL per hour. He has had good urine output. C. difficile toxin came back negative. Stool for occult blood was positive. He denies any chest pain or shortness of breath BUN 10 and creatinine 1.27. White count is 5.1, hemoglobin 9.1, platelet count 143. He is receiving his second 03 doses of iron infusion. 01/01: Patient remains in the intensive care unit as a cardiac stepdown overflow. Patient is denying any new complaints. Developed pain is improved. He has been tolerating diet. Diarrhea is much improved. Patient is continued on heparin drip as well as IV antibiotics. Patient has been afebrile, heart rate running anywhere between 83 and 1:15, blood pressure 96/94, pulse ox 96% on room air. White count is normal, hemoglobin 9.4, creatinine 1.23. Blood sugars running between 69 and 119. Anticipate discharge on Saturday with return to [facility]. Review of Systems CONSTITUTIONAL: Well-developed no acute respiratory distress. No fever no chills. Reports generalized weakness EYES: No icterus sclerae, no conjunctivitis. EARS, NOSE, MOUTH, THROAT, and FACE: No sore throat, lymphadenopathy, carotid bruits or deformity. RESPIRATORY: Mild shortness of breath no wheezes CARDIOVASCULAR: Positive chest wall pain, positive palpitation and PND GASTROINTESTINAL: Denies right Abd pain, denies Nausea or vomiting, improving Diarrhea denies constipation, No GI Bleed, no distention or masses. GENITOURINARY: Negative for Hematuria or UTI, no kidney stones. INTEGUMENT/BREAST: Negative for any muscular injury with mild osteoarthritis.. HEMATOLOGIC/LYMPHATIC: Negative for bleed or purpura. MUSCULOSKELTAL: Negative for Myalgia or arthralgia. NEURLOGICAL: No LOC, Sz or syncope, blurred vision dizziness or abnormality.. BEHAVIORAL/PSYCH: Negative. ENDOCRINE: Negative. Objective - Vital Signs Vital signs: Vital Signs Temp 97.9 F 01/01/19 08:00 Pulse 90 01/01/19 12:22 Resp 13 01/01/19 08:00 BP 108/62 01/01/19 08:00 Pulse Ox 96 01/01/19 08:00 Intake & Output 12/31/18 01/01/19 01/01/19 18:59 06:59 18:59 Intake Total 2776.246 960 160 Output Total 575 950 Balance 2201.246 10 160 Weight 125 kg Intake: IV 1470 960 160 Sodium Chloride 0.9% 1, 1120 960 160 000 ml @ 80 mls/hr IV . [id number] [facility] Rx#:[id number] Sodium Ferric Gluconat- 100 Sucrose 125 mg In Sodium Chloride 0.9% 100 ml @ 100 mls/hr IVPB DAILY [facility] Rx#:[id number] cefTRIAXone 1 gm In 50 Sodium Chloride 0.9% 50 ml @ 100 mls/hr IVPB Q24HR [facility] Rx#:[id number] metroNIDAZOLE-NS PMX 500 200 mg In Saline 1 100ml.bag @ 100 mls/hr IVPB Q8HR [facility] Rx#:[id number] Intake, IV Titration 108.246 Amount Heparin Sod,Pork in 0.45% 108.246 NaCl 25,000 unit In 0.45 % NaCl 1 250ml.bag @ 6.27 UNITS/KG/HR 8 mls/hr IV .Q24H [facility] Rx#:[id number] Oral 1198 Output: Urine 575 950 Other: Voiding Method Urinal Urinal Urinal # Voids 1 1 # Bowel Movements 1 - Exam General Appearance: Alert, no distress, appears stated age. Resting in a recliner. Family at bedside Neck HEENT: Supple, no lymphadenopathy, no thyroid enlargement, no carotid bruits. Lungs: Decreased breath sound bilaterally specially in the left side with fine rhonchi no wheezes. Chest Wall: Decrease expansion with deep inspiration no tenderness and no deformity was found on exam, no costochondral pain or discomfort. Incision in the mid sternum area looks good with no sign of infection or induration or redness. Heart: IRRegular rate and rhythm, S1, S2 normal, positive S3, positive aortic valve click no murmur, rub or gallop. Back: Symmetric, no curvature, ROM normal, no CVA tenderness. Abdomen: Soft, minimal tenderness right lower quadrant, no rebound tenderness, bowel sounds active all four quadrants, no masses, no organomegaly. Extremities: Trace edema decreased pulse, positive mild osteoarthritis. Pulses: 2+ and symmetric. Skin: Skin color, texture, tugor normal, no rashes or lesions. Neurologic: Alert oriented x3 cranial nerves II through XII intact, no motor deficit, no abnormal balance or gait. - Labs CBC & Chem 7: 01/01/19 05:15 01/01/19 05:15 Labs: Abnormal Lab Results - Last 24 Hours (Table) 12/31/18 12/31/18 12/31/18 Range/Units 16:54 18:54 21:17 RBC (4.30-5.90) m/uL Hgb (13.0-17.5) gm/dL Hct (39.0-53.0) % RDW (11.5-15.5) % APTT 57.6 H (22.0-30.0) sec Chloride (98-107) mmol/L Carbon Dioxide (22-30) mmol/L Glucose (74-99) mg/dL POC Glucose (mg/dL) 106 H 119 H (75-99) mg/dL 01/01/19 01/01/19 01/01/19 Range/Units 05:15 05:15 05:15 RBC 3.02 L (4.30-5.90) m/uL Hgb 9.4 L (13.0-17.5) gm/dL Hct 29.7 L (39.0-53.0) % RDW 16.0 H (11.5-15.5) % APTT 53.2 H (22.0-30.0) sec Chloride 115 H (98-107) mmol/L Carbon Dioxide 20 L (22-30) mmol/L Glucose 69 L (74-99) mg/dL POC Glucose (mg/dL) (75-99) mg/dL Assessment and Plan Plan: 1 A. flutter with RVR and underlying chronic atrial flutter with brief cardiac arrest recovered. Continue amiodarone 200 mg 3 times daily, heparin drip. Cardiology consult appreciated 2 Acute kidney injury with most likely ATN with acute kidney failure decrease GFR significantly avoid nephrotoxic agent, consult with nephrology appreciated. 3 post aortic valve placement: Successful surgery so far with no major complication. Continue incentive spirometery, consult with cardiothoracic surgery appreciated 4 post one-vessel CABG was reverse saphenous to the RCI stable so far. 5 type 2 diabetes: Has been on Humalog and long acting insulin resume both continue Accu-Chek with sliding scales coverage. 6 Hypertension: Continue metoprolol and amiodarone. 7 Hyperlipidemia: Continue patient on atorvastatin 40 mg daily. 8. Recurrent depression. Continue Celexa 20 mg daily. 9. COPD: Continue patient on albuterol/ipratropium nebulizer continue O2 try to keep pulse ox above 90 percentile. 10. Ischemic colitis: Surgical consult appreciated, plan for conservative management. Continue Flagyl 500 grams every 8 hours IV piggyback, Rocephin 1 g IV piggyback every 24 hours. Low fiber diet. Patient is on heparin drip. 11 GI prophylaxis/GERD: Continue patient on pantoprazole 40 mg daily. 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 13. Chronic pain syndrome. Continue Lyrica 100 mg twice daily. 14. History of bilateral hip replacements and postop infections requiring chronic suppressive antibiotic therapy with doxycycline under the care of Dr. Ricci. 15. Chronic kidney disease stage II. 16. Diarrhea. Stool to be sent for C. difficile toxin which was negative. Lomotil increased. CODE STATUS: Full code. Discharge plan: Return to [facility] on Saturday Impression and plan of care have been directed as dictated by the signing physician. Bryanna Coker nurse practitioner acting as scribe for signing physician.
--- NOTE | 2019-01-01 16:46 | P.PN ---
Subjective Progress Note Date: 01/01/19 This is a 68-year-old male patient with known history of coronary artery disease and the patient underwent a single-vessel bypass surgery and aortic valve replacement on 12/02/2018 in our institution. The patient is also known to have hypertension and hyperlipidemia and diabetes mellitus and peripheral neuropathy. Is a former smoker. I was involved in this patient's postoperative care. The patient did well. The patient was discharged to [facility] on on 12/09/2018. Note that the patient's aortic valve are present was done for severe aortic stenosis. He has some background COPD with an FEV1 of 56% of predicted. He is obese and his BMI is at 38.3. The patient did develop atrial fibrillation following his surgery. He did convert to normal sinus rhythm after he was given amiodarone. Upon discharge, he was given amiodarone 400 mg by mouth twice a day in addition to aspirin and metoprolol 50 mg by mouth twice a day. He was also given Lasix 40 mg by mouth daily. He was asked to continue Levemir insulin 40 units at bedtime and 20 units in the morning in addition to DuoNeb nebulized treatments on the clock. His regimen also includes a combination of aspirin and Plavix. He has also history of herpetic infection for which she is on Valtrex. The patient came in to the emergency department after he was found by his primary care physician to be in atrial fibrillation/flutter with rapid ventricular response. The patient was initially resting comfortably in his bed and he was not having any significant distress. He denies having any symptoms of chest pain or shortness of breath or dizziness. He stated that his heart was racing. In the emergency department, the patient was also found to be acute kidney injury. The creatinine at time of admission was 2.09 knowing that time of the chest creatinine was completely within normal limits. His current creatinine is at 1.8. The patient was initially admitted to selective unit where he was started on amiodarone bolus and while the bolus was infusing the patient went unresponsive. According to the rhythm strips, the patient had a positive around 5 seconds and he was briefly given CPR. He did wake up within a few seconds. The patient had a bowel movement following that and he also felt diaphoretic. He got moved to the intensive care unit. His current rhythm is a flutter with a rate of 117-120. He is on no amiodarone drip. He is taking metoprolol the dose of which was modified and the patient is currently taking 75 mg by mouth twice a day. He is also started on long-term anticoagulation with Eliquis. His sternum is stable clean and intact. He has not voided yet. He is receiving IV fluids in order of 80 mL an hour and he will be receiving IV fluid bolus as recommended by cardiology. Echocardiogram was done and the patient has a preserved LV function with an ejection fraction of 50-55% and there is no other valvular abnormalities. The aortic valve was not well visualized and the peak gradient across the valve was 11 mmHg and it is a normally functioning bioprosthetic valve. The right ventricular systolic pressure was not measured as there was no tricuspid regurgitation jet. On today's evaluation of 12/28/2018, the patient remains in atrial flutter. The rate is under better control and the patient is less tachycardic. He briefly went into a sinus rhythm yesterday however subsequently went back into a flutter rhythm. No chest pain. No palpitation. No shortness of breath. He did complain of right lower quadrant pain today. On examination he had direct and rebound tenderness. Based on that, he was sent for a stat CAT scan of the abdomen and pelvis that showed evidence of cecal inflammation. The area in the cecum was quite inflamed and swollen and there was diffuse thickening through the cecum and proximal ascending colon. For this reason, the patient was started on a combination of IV Rocephin and Flagyl. Gen. surgery was consulted. The patient likely had an embolic phenomena as the patient went into atrial flutter and he could've embolized to his bowel. Ischemic colitis, hypotension is another possibility. In any rate, the patient was seen by general surgery. He is not having any nausea or vomiting. His abdominal pain is around 2 out of 10 in severity. No altered mentation. His lactic acid level came back at 3.2. He is on IV fluids. He was given another bolus yesterday and his creatinine is improving and is down to 1.38. He is back on oral amiodarone 200 mg by mouth 3 times a day. He is also on metoprolol 75 mg by mouth twice a day and his heart rate is under much better control and today' s evaluation. On today's evaluation of 12/29/2018, the patient remains in a slower rate atrial flutter. He is doing well per no chest pain no shortness of breath. He still having right lower quadrant pain and would believe that the patient embolic phenomena causing acute inflammation of the cecum/ascending colon. He is on a combination of Rocephin and Flagyl. He is passing flatus per no signs of any bowel obstruction. No nausea or vomiting. He is tolerating clear liquid diet. His white cell count is at 7.4. His BUN is at 20 with a creatinine of 1.4. He remains on IV heparin and his PTT is therapeutic at this point in time. No fever. No chills. No chest pain. No shortness of breath. Resting comfortably in bed. Surgeries on the case regarding the abdominal findings. On 12/30/2018 the patient remains in intensive care unit. The patient remains in a a flutter rhythm and the rate is as high as low 100s and typically is running in the 80 beats per minute range. The patient is also on IV heparin. The patient is on oral amiodarone. No respiratory distress. His resting comfortably in bed. He is taking clear liquid diet. He still has a right abdominal quadrant tenderness in the right lower quadrant area. The overall tenderness is unchanged compared to yesterday. He has no abdominal distention. His passing flatus. I do not think there is any change in his abdominal exam compared to yesterday. Remains afebrile. No significant leukocytosis. He is not toxic at all. He is still receiving normal state rate of 80 mL an hour. He is on IV Rocephin and Flagyl as broad-spectrum antibiotic coverage. On 12/31/[address] Mr. coronel for a follow-up. His condition essentially the same. No fever. No chills. He is having loose liquidy bowel movements. The Abdomen Shows No Free Air. He Remains in Atrial Flutter. He is taking, consistent low fiber diet. He is emanating in the hallway. No chest pain. No fever or chills. He remains on the same antibiotic coverage. Right lower quadrant remains tender. The metoprolol dose was increased up to 100 mg by mouth twice a day. He remains on a combination of Rocephin and Flagyl. He is also on amiodarone 400 mg by mouth 3 times a day. He remains on IV heparin and no plans to initiate long-term anticoagulation yet filled the abdominal findings improve On 01/01/2019, and seeing this patient for a follow-up. The patient is doing better. The right lower quadrant tenderness is improved compared to yesterday. His advancing his diet. He is ambulating. His rhythm is still in atrial fibrillation. He was taken off the IV heparin and he was started on oral Eliquis. She was under decent control. No fever. No chills. No leukocytosis. No other complaints otherwise for now. There is significant improvement in the right lower quadrant pain compared to yesterday. He was stable at 9.4. Objective - Vital Signs Vital signs: Vital Signs Temp 98.3 F 01/01/19 12:00 Pulse 82 01/01/19 16:39 Resp 16 01/01/19 12:00 BP 96/94 01/01/19 12:00 Pulse Ox 96 01/01/19 12:00 Intake & Output 12/31/18 01/01/19 01/01/19 18:59 06:59 18:59 Intake Total 2776.246 960 160 Output Total 575 950 200 Balance 2201.246 10 -40 Weight 125 kg 125 kg Intake: IV 1470 960 160 Sodium Chloride 0.9% 1, 1120 960 160 000 ml @ 80 mls/hr IV . [id number] [facility] Rx#:[id number] Sodium Ferric Gluconat- 100 Sucrose 125 mg In Sodium Chloride 0.9% 100 ml @ 100 mls/hr IVPB DAILY [facility] Rx#:[id number] cefTRIAXone 1 gm In 50 Sodium Chloride 0.9% 50 ml @ 100 mls/hr IVPB Q24HR [facility] Rx#:[id number] metroNIDAZOLE-NS PMX 500 200 mg In Saline 1 100ml.bag @ 100 mls/hr IVPB Q8HR [facility] Rx#:[id number] Intake, IV Titration 108.246 Amount Heparin Sod,Pork in 0.45% 108.246 NaCl 25,000 unit In 0.45 % NaCl 1 250ml.bag @ 6.27 UNITS/KG/HR 8 mls/hr IV .Q24H [facility] Rx#:[id number] Oral 1198 Output: Urine 575 950 200 Other: Voiding Method Urinal Urinal Urinal # Voids 1 1 # Bowel Movements 1 - Exam GENERAL: This is a 68-year-old male in no apparent distress at the time of my examination. HEENT: Head is atraumatic, normocephalic. Pupils are equal, round. Sclerae anicteric. Conjunctivae are clear. Mucous membranes of the mouth are moist. Neck is supple. There is no jugular venous distention. No carotid bruit is heard. LUNGS: Clear to auscultation no wheezes, rales or rhonchi. No chest wall tenderness is noted on palpation or with deep breathing. HEART: Irregular rate and rhythm with systolic ejection murmur at the base, no rubs or gallops. S1 and S2 heard. Heart [address]. Sternal scar noted clean dry and intact. ABDOMEN: Soft, tender. Bowel sounds are heard. No organomegaly noted. The patient has no significant tenderness in the abdomen. No rebound tenderness. No guarding. No ascites. Bowel sounds are hypoactive at the present.EXTREMITIES: No evidence of peripheral edema and no calf tenderness noted. VASCULAR: Radial and dorsalis pedis pulses palpated, no evidence of clubbing. NEUROLOGIC: Patient is awake, alert and oriented x3. - Labs CBC & Chem 7: 01/01/19 05:15 01/01/19 05:15 Labs: Abnormal Lab Results - Last 24 Hours (Table) 12/31/18 12/31/18 12/31/18 Range/Units 16:54 18:54 21:17 RBC (4.30-5.90) m/uL Hgb (13.0-17.5) gm/dL Hct (39.0-53.0) % RDW (11.5-15.5) % APTT 57.6 H (22.0-30.0) sec Chloride (98-107) mmol/L Carbon Dioxide (22-30) mmol/L Glucose (74-99) mg/dL POC Glucose (mg/dL) 106 H 119 H (75-99) mg/dL 01/01/19 01/01/19 01/01/19 Range/Units 05:15 05:15 05:15 RBC 3.02 L (4.30-5.90) m/uL Hgb 9.4 L (13.0-17.5) gm/dL Hct 29.7 L (39.0-53.0) % RDW 16.0 H (11.5-15.5) % APTT 53.2 H (22.0-30.0) sec Chloride 115 H (98-107) mmol/L Carbon Dioxide 20 L (22-30) mmol/L Glucose 69 L (74-99) mg/dL POC Glucose (mg/dL) (75-99) mg/dL Assessment and Plan Plan: Assessment 1 atrial flutter with rapid ventricular moderate is controlled and the patient is currently on oral anticoagulants in addition to rate control with amiodarone 200 mg by mouth 3 times a day and metoprolol 100 mg by mouth twice a day. 2 coronary artery disease with a recent single-vessel bypass surgery 3 acute right lower quadrant pain with evidence of diffuse bowel thickening involving the cecum and ascending colon, consider embolism to the got due to an underlying atrial flutter. Patient will be started on IV heparin. Patient's abdominal exam is unchanged compared to yesterday. No significant leukocytosis. No lactic acidosis. Clinically the patient is improved with IV antibiotics. The patient was taken off the IV heparin and patient is currently on Eliquis. On examination the right lower quadrant tenderness is improved considerably. 4 diabetes mellitus type 2 with peripheral neuropathy 5 hypertension, history of 6 acute kidney injury, improving and the creatinine is down to 1.2 7 hyperlipidemia 8 COPD with a baseline FEV1 of 56% of predicted 9 history of depression 10 history of shingles currently on Valtrex for chronic suppression 11 history of right and left hip replacement with postoperative infections requiring antibiotics and the patient has been maintained on doxycycline outpatient basis 12 normocytic anemia Plan Agree on the current changes. Clinically improving. The patient can be transferred to a medical floor. He will need telemetry monitoring. The continue on the same antibiotic coverage. Continue rate control. Oral anticoagulation.
[2019-01-01 17:14] LABS: Glucose,Whole Blood 112 mg/dL (75-99)
--- NOTE | 2019-01-01 18:58 | PN ---
PROGRESS NOTE This patient is admitted with typical atrial flutter. Patient is feeling better. The abdominal pain is significantly improved. He still says he gets exertional shortness of breath. The patient's heart rate is under better control. Heart rate now is between 80-100 per minute. The blood pressure is 100/94 mmHg. First and second heart sounds are normal. Lungs are clear to auscultation and percussion. The patient is started on Eliquis 5 mg b.i.d. and the heparin is discontinued. The patient will be probably discharged home tomorrow. MMODL / IJN: [id number] /
[2019-01-01 20:40] LABS: Glucose,Whole Blood 66 mg/dL (75-99)
[2019-01-01] MEDS ORDERED: CIPROFLOXACIN HCL 500 MG TAB PO SCH (21:00)
[2019-01-01 21:02] LABS: Glucose,Whole Blood 80 mg/dL (75-99)
[2019-01-01] MEDS: metroNIDAZOLE 500 MG TAB PO SCH (21:29)
[2019-01-02 02:51] LABS: Glucose,Whole Blood 79 mg/dL (75-99)
[2019-01-02 05:22] LABS: Anisocytosis Slight; HCT 28.7 % (39.0-53.0); HGB 8.8 gm/dL (13.0-17.5); Hypochromasia Marked; MCH 29.5 pg (25.0-35.0); MCHC 30.6 g/dL (31.0-37.0); MCV 96.2 fL (80.0-100.0); Mean Platelet Volume 7.4; Platelet Count 156 k/uL (150-450); Poikilocytosis Moderate; RBC 2.98 m/uL (4.30-5.90); RDW 16.2 % (11.5-15.5); WBC 5.6 k/uL (3.8-10.6)
[2019-01-02 05:31] LABS: Calcium 8.4 mg/dL (8.4-10.2); Magnesium 1.9 mg/dL (1.6-2.3); Potassium 4.2 mmol/L (3.5-5.1)
[2019-01-02 07:01] LABS: Glucose,Whole Blood 86 mg/dL (75-99)
[2019-01-02] MEDS: INSULIN ASPART (NovoLOG) 100 UNIT/ML VIAL SQ SCH ×4 (07:51→12:35)
[2019-01-02] MEDS: INSULIN DETEMIR (LEVEMIR) 100 UNIT/ML SYR SQ SCH (07:52)
[2019-01-02] MEDS: PANTOPRAZOLE 40 MG TABLET PO SCH (07:55)
[2019-01-02] MEDS: metroNIDAZOLE 500 MG TAB PO SCH (07:55)
[2019-01-02] MEDS: PREGABALIN 100 MG CAP PO SCH (07:55)
[2019-01-02] MEDS: valACYclovir 500 MG TAB PO SCH (07:56)
[2019-01-02] MEDS: AMIODARONE 200 MG TAB PO SCH (07:57)
[2019-01-02] MEDS: APIXABAN 5 MG TAB PO SCH (07:57)
[2019-01-02] MEDS: ASPIRIN 81 MG PO SCH (07:58)
[2019-01-02] MEDS: ATORVASTATIN 40 MG TAB PO SCH (07:58)
[2019-01-02] MEDS: CITALOPRAM HYDROBROMIDE 20 MG TAB PO SCH (07:59)
[2019-01-02] MEDS: METOPROLOL TARTRATE 50 MG TAB PO SCH (07:59)
[2019-01-02] MEDS: CHOLECALCIFEROL 1,000 UNIT TAB PO SCH (07:59)
--- NOTE | 2019-01-02 08:16 | P.PN ---
Subjective Patient is seen in follow-up for acute kidney injury. Patient's baseline creatinine is 1 and peaked at 2.09 this admission. It is stable at 1.3 today. He's off IVF. No diarrhea overnight. C. diff was negative. Admits to good urine output. Denies chest pain or shortness of breath. Oral intake is good. Vital signs are stable. General: The patient appeared well nourished and normally developed. HEENT: Head exam is unremarkable. Neck is without jugular venous distension. LUNGS: Lungs are clear to auscultation and percussion. Breath sounds decreased. HEART: Rate and Rhythm are regular. First and second heart sounds normal. No murmurs, rubs or gallops. ABDOMEN: Abdominal exam reveals normal bowel sounds. Non-tender and non- distended. No evidence of peritonitis. EXTREMITITES: No clubbing, cyanosis, or edema. Objective - Vital Signs Vital signs: Vital Signs Temp 97.9 F 01/02/19 08:00 Pulse 112 H 01/02/19 08:00 Resp 19 01/02/19 08:00 BP 118/75 01/02/19 08:00 Pulse Ox 97 01/02/19 08:00 Intake & Output 01/01/19 01/02/19 01/02/19 18:59 06:59 18:59 Intake Total 160 960 Output Total 500 600 Balance -340 360 Weight 125 kg 128.3 kg Intake: IV 160 960 Sodium Chloride 0.9% 1, 160 960 000 ml @ 80 mls/hr IV . [id number] [facility] Rx#:[id number] Output: Urine 500 600 Other: Voiding Method Urinal Urinal # Voids 1 1 1 - Labs CBC & Chem 7: 01/02/19 05:02 01/02/19 05:02 Labs: Abnormal Lab Results - Last 24 Hours (Table) 01/01/19 01/01/19 01/02/19 Range/Units 17:12 20:39 05:02 RBC 2.98 L (4.30-5.90) m/uL Hgb 8.8 L (13.0-17.5) gm/dL Hct 28.7 L (39.0-53.0) % MCHC 30.6 L (31.0-37.0) g/dL RDW 16.2 H (11.5-15.5) % Chloride (98-107) mmol/L Creatinine (0.66-1.25) mg/dL POC Glucose (mg/dL) 112 H 66 L (75-99) mg/dL 01/02/19 Range/Units 05:02 RBC (4.30-5.90) m/uL Hgb (13.0-17.5) gm/dL Hct (39.0-53.0) % MCHC (31.0-37.0) g/dL RDW (11.5-15.5) % Chloride 114 H (98-107) mmol/L Creatinine 1.31 H (0.66-1.25) mg/dL POC Glucose (mg/dL) (75-99) mg/dL Assessment and Plan Plan: Assessment: 1. Acute kidney injury secondary to ATN secondary to intravascular volume depletion from diarrhea as well as hemodynamic instability. Creatinine 1.3 today. Baseline creatinine near 1. No evidence of hydronephrosis or infarct noted on CAT scan of the abdomen and pelvis. 2. Diarrhea. Possibly ischemic colitis from microvascular emboli. Maintained on antibiotics. Gen. surgery following. C. diff negative. 3. Atrial flutter. Maintained on amiodarone. 4. Insulin-dependent diabetes mellitus. 5. Anemia. Iron deficiency noted. S/p 3 doses of IV iron. Plan: Encouraged PO intake. Avoid nephrotoxins. Continue to hold DARWIN inhibitor for now.
--- NOTE | 2019-01-02 08:43 | P.DS ---
Providers Date of admission: 12/26/18 18:46 Expected date of discharge: 01/02/19 Attending physician: Сергей Capps Consults: 12/26/18 18:42 Consult Physician Routine Consulting Provider: Edmar Lane Consult Reason/Comments: afib, recent aortic valve replacement and single vessel CABG Do you want consulting provider notified?: Yes Consult Physician Routine Consulting Provider: Karol Mcnamara Consult Reason/Comments: [place] Do you want consulting provider notified?: Yes 12/27/18 09:06 Consult Physician Routine Consulting Provider: Alex Irby Consult Reason/Comments: afib rvr Do you want consulting provider notified?: Yes 12/27/18 12:48 Consult Physician Routine Consulting Provider: Christina Hebert Consult Reason/Comments: icu management Do you want consulting provider notified?: Already Contacted 12/28/18 09:58 Consult Physician Routine Consulting Provider: Alessandro Monahan Consult Reason/Comments: cecal inflammation, typhilitis Do you want consulting provider notified?: Yes Primary care physician: Jonathan Graham [facility] Course: 68-year-old male one of Dr. Graham patient who was admitted to the hospital 12/02/2018 to 12/09/2018 for elective aortic valve placement and one-vessel CABG which is reverse saphenous vein graft to the right coronary artery in by Dr. Irby cardiothoracic. Patient was in the hospital for a few days developed to have A. fib with RVR was started on amiodarone and was back in sinus rhythm. Pulse rate is well-controlled. Patient was transferred to [facility] for rehab. Was seen Dr. Washington today at [facility] on the [place] and found to be in A. fib with RVR pulse rate running about 150 beats per minutes. Also patient was dehydrated dry having hypotension was sent to the emergency department at [facility] where was seen and evaluated found to be in A. fib with RVR with pulse rate rapid. Cardiothoracic and cardiology were inform patient also found to be in acute kidney failure with acute kidney injury most likely ATN creatinine is up to 2.08 from 1.0. Patient was started on gentle hydration Cardizem drip and heparin drip and was admitted to the hospital with above problem. 12/27: Patient is resting in bed without any acute distress. Patient continues to be in A. fib with RVR pulse rate running about 120. Patient denies any difficulty breathing or shortness of breath at this time. Incisional site remains clean and dry. Patient has no new concerns or complaints at this time. WC 4.8, hemoglobin 10.2, platelets 15.7, sodium 140, potassium 5.3, chloride 105, BUN is 32 creatinine 1.81, glucose 200. 12/28: Through the night patient experienced severe abdominal pain. Patient was transferred to the intensive care unit for monitoring. CAT of the abdomen with and without contrast was performed. CT showed small bilateral pleural effusion , compressive atelectasis adjacent to the left pleural effusion, cholelithiasis , diffuse thickening through the cecum and proximal ascending colon. Patient continues to have right lower quadrant abdominal pain and tenderness. Patient denies any nausea or vomiting. Patient continues to be in A. fib with RVR pulse rate running in 115. 12/29: Patient has been evaluated by Dr. Monahan regarding short segment of colitis likely ischemic from microvascular emboli. Recommend continuing anticoagulation and begin liquid diet, empiric antibiotics plan is for conservative management. He is currently on Rocephin and Flagyl. Patient is also followed by cardiology. He is currently on heparin drip and oral amiodarone. radiation monitor is atrial flutter. Heart rate is running 95-108, blood pressure 92/60, pulse ox 97% on room air. He has been afebrile. White count is normal some 0.4, hemoglobin 8.9, platelet count 141, creatinine 1.44. Capillary blood glucose running between 150-176. Repeat chest x-ray reveals bibasilar consolidation greater on the left with small left pleural effusion. Echocardiogram reveals EF of 50-55% with moderate concentric left ventricle hypertrophy, mild mitral regurgitation, mild tricuspid regurgitation, small generalized pericardial effusion. Patient is also followed by consultants: nephrology, pulmonary medicine, cardiothoracic surgery. 12/30: Patient remains in intensive care unit awaiting a cardiac stepdown unit bed. He remains on heparin drip also on Flagyl. He complains of diarrhea every 3 hours at least a small amount. Stool will be checked for C. difficile toxin and if negative patient will be started on Imodium. He has no respiratory distress. His found sitting in a recliner and appears to be comfortable. radiation monitor is atrial flutter rate is controlled 12/31: Patient states the diarrhea is not any better. Lomotil increased 4 mg as needed. No lower extremity edema. No abdominal pain. He is currently on low fiber diet and maintain on IV fluids at 80 mL per hour. He has had good urine output. C. difficile toxin came back negative. Stool for occult blood was positive. He denies any chest pain or shortness of breath BUN 10 and creatinine 1.27. White count is 5.1, hemoglobin 9.1, platelet count 143. He is receiving his second 03 doses of iron infusion. 01/01: Patient remains in the intensive care unit as a cardiac stepdown overflow. Patient is denying any new complaints. Developed pain is improved. He has been tolerating diet. Diarrhea is much improved. Patient is continued on heparin drip as well as IV antibiotics. Patient has been afebrile, heart rate running anywhere between 83 and 1:15, blood pressure 96/94, pulse ox 96% on room air. White count is normal, hemoglobin 9.4, creatinine 1.23. Blood sugars running between 69 and 119. Anticipate discharge on Saturday with return to [facility]. 01/02: Lab work this morning reveals hemoglobin of 8.8, white count 5.6, platelet count 156. Sodium 141, potassium 4.2, chloride 114, CO2 23, BUN 10 and creatinine 1.31. Blood sugars up and running between 74 and 86. He has had a good urine output. He denies any chest pain or shortness of breath. He is tolerating oral diet. No nausea or vomiting. Dr. Mendoza is recommended continuing to hold DARWIN inhibitor. Patient is anxious to return to [facility] for rehab. The patient will be discharged back to [facility] today once insurance authorization has been completed. Discharge diagnoses: 1 A. flutter with RVR and underlying chronic atrial flutter with brief cardiac arrest recovered. 2 Acute kidney injury with most likely ATN 3 post aortic valve placement 4 post one-vessel CABG was reverse saphenous to the RCI 5 type 2 diabetes 6 Hypertension 7 Hyperlipidemia 8. Recurrent depression 9. COPD 10. Ischemic colitis 11 Chronic pain syndrome. Continue Lyrica 100 mg twice daily. 12. History of bilateral hip replacements and postop infections requiring chronic suppressive antibiotic therapy 13. Chronic kidney disease stage II. 14. Diarrhea. Discharge plan: Return to [facility] Impression and plan of care have been directed as dictated by the signing physician. Bryanna Coker nurse practitioner acting as scribe for signing physician. Patient Condition at Discharge: Good Plan - Discharge Summary Discharge Rx Participant: No New Discharge Prescriptions: New Amiodarone [Cordarone] 200 mg PO TID #90 tab Apixaban [Eliquis] 5 mg PO BID #60 tab Aspirin 81 mg PO DAILY chew Loperamide [Imodium] 2 mg PO QID PRN #30 cap PRN Reason: Diarrhea Metoprolol Tartrate [Lopressor] 100 mg PO BID #120 tab metroNIDAZOLE [Flagyl] 500 mg PO BID #6 tab Continue valACYclovir HCL [Valtrex] 500 mg PO DAILY Citalopram Hydrobromide [CeleXA] 20 mg PO DAILY Cholecalciferol [Vitamin D3] 1,000 unit PO DAILY Acetaminophen Tab [Tylenol] 650 mg PO Q6HR PRN tab PRN Reason: Pain Scale 6 To 10 Acetaminophen Tab [Tylenol] 325 mg PO Q6HR PRN tab PRN Reason: Pain Scale 1 To 5 Atorvastatin [Lipitor] 40 mg PO DAILY tab Ipratropium-Albuterol Nebulize [Duoneb 0.5 mg-3 mg/3 ml Soln] 3 ml INHALATION RT-QID ampul.neb Sennosides-Docusate Sodium [Senokot-S] 2 tab PO HS PRN PRN Reason: Constipation Insulin Lispro [humaLOG Kwikpen] See Protocol SQ TID Insulin Lispro [humaLOG Kwikpen] 15 unit SQ TID-W/MEALS Pantoprazole [Protonix] 40 mg PO QAM Insulin Glargine,Hum.rec.anlog [Basaglar Kwikpen U-100] 40 unit SQ HS Insulin Glargine,Hum.rec.anlog [Basaglar Kwikpen U-100] 20 unit SQ QAM Pregabalin [Lyrica] 100 mg PO BID #12 cap Changed Furosemide [Lasix] 40 mg PO DAILY #0 Discontinued Aspirin 325 mg PO DAILY tab Clopidogrel [Plavix] 75 mg PO DAILY tab Heparin Sodium,Porcine [Heparin Sodium] 5,000 unit SQ Q8HR vial Lisinopril [Zestril] 10 mg PO DAILY tab Metoprolol Tartrate [Lopressor] 50 mg PO BID tab Amiodarone [Cordarone] 200 mg PO DAILY Discharge Medication List valACYclovir HCL [Valtrex] 500 mg PO DAILY 07/18/15 [History] Citalopram Hydrobromide [CeleXA] 20 mg PO DAILY 10/02/17 [History] Cholecalciferol [Vitamin D3] 1,000 unit PO DAILY 11/12/18 [History] Acetaminophen Tab [Tylenol] 325 mg PO Q6HR PRN tab 12/09/18 [Rx] Acetaminophen Tab [Tylenol] 650 mg PO Q6HR PRN tab 12/09/18 [Rx] Atorvastatin [Lipitor] 40 mg PO DAILY tab 12/09/18 [Rx] Ipratropium-Albuterol Nebulize [Duoneb 0.5 mg-3 mg/3 ml Soln] 3 ml INHALATION RT -QID ampul.neb 12/09/18 [Rx] Insulin Glargine,Hum.rec.anlog [Basaglar Kwikpen U-100] 20 unit SQ QAM 12/26/18 [History] Insulin Glargine,Hum.rec.anlog [Basaglar Kwikpen U-100] 40 unit SQ HS 12/26/18 [ History] Insulin Lispro [humaLOG Kwikpen] 15 unit SQ TID-W/MEALS 12/26/18 [History] Insulin Lispro [humaLOG Kwikpen] See Protocol SQ TID 12/26/18 [History] Pantoprazole [Protonix] 40 mg PO QAM 12/26/18 [History] Sennosides-Docusate Sodium [Senokot-S] 2 tab PO HS PRN 12/26/18 [History] Amiodarone [Cordarone] 200 mg PO TID #90 tab 01/02/19 [Rx] Apixaban [Eliquis] 5 mg PO BID #60 tab 01/02/19 [Rx] Aspirin 81 mg PO DAILY chew 01/02/19 [Rx] Furosemide [Lasix] 40 mg PO DAILY #0 01/02/19 [Rx] Loperamide [Imodium] 2 mg PO QID PRN #30 cap 01/02/19 [Rx] Metoprolol Tartrate [Lopressor] 100 mg PO BID #120 tab 01/02/19 [Rx] Pregabalin [Lyrica] 100 mg PO BID #12 cap 01/02/19 [Rx] metroNIDAZOLE [Flagyl] 500 mg PO BID #6 tab 01/02/19 [Rx] Follow up Appointment(s)/Referral(s): Alex Irby MD [STAFF PHYSICIAN] - 01/02/19 10:15 am Jonathan Graham DO [Primary Care Provider] - 1-2 days Discharge Disposition: TRANSFER TO SNF/ECF
[2019-01-02] MEDS: IPRATROPIUM-ALBUTEROL 3 ML NEB INHALATION SCH ×2 (08:55→12:25)
--- NOTE | 2019-01-02 10:54 | P.PN ---
Subjective Progress Note Date: 01/02/19 Principal diagnosis: New onset atrial flutter, acute kidney injury, history of aortic valve replacement, history of coronary artery bypass graft 1, history of aortic stenosis, history of infection total joint prosthesis postoperative bilateral hip replacements, chronic obstructive pulmonary disease, coronary artery disease , diabetes mellitus, family history of coronary artery disease, hyperlipidemia, hypertension, morbid obesity, osteoarthritis, tobacco dependence in remission, on 12/02/2018 patient had postoperative paroxysmal atrial fibrillation and a fall from standing without loss of consciousness and without injury, COPD with a recent FEV1 56% of predicted value and history of depression and ischemic colitis. The patient is currently sitting up to the bedside chair in no acute distress. He is alert and oriented 3. 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 He denies any further complaints of abdominal discomfort. He said his abdominal discomfort is totally gone. He does report although that he continues to have episodes of loose stools. He is tolerating a low fiber consistent carbohydrate diet. He remains afebrile and his WBC count this morning is 5.6. He is anxious to return to [facility] for further rehabilitation needs. The patient has been ambulating in the intensive care unit already this morning with assistance from physical therapy. Objective - Vital Signs Vital signs: Vital Signs Temp 97.9 F 01/02/19 08:00 Pulse 110 H 01/02/19 09:08 Resp 19 01/02/19 08:00 BP 118/75 01/02/19 08:00 Pulse Ox 97 01/02/19 08:00 Intake & Output 01/01/19 01/02/19 01/02/19 18:59 06:59 18:59 Intake Total 160 960 Output Total 500 600 Balance -340 360 Weight 125 kg 128.3 kg Intake: IV 160 960 Sodium Chloride 0.9% 1, 160 960 000 ml @ 80 mls/hr IV . [id number] [facility] Rx#:[id number] Output: Urine 500 600 Other: Voiding Method Urinal Urinal Urinal # Voids 1 1 1 - Constitutional General appearance: Present: cooperative, morbidly obese, no acute distress - Respiratory Details: Lung sounds are diminished throughout. Respirations are symmetrical and nonlabored. Oxygen saturation are 95% on room air. He is achieving 1500 mL on his incentive spirometry. - Cardiovascular Details: Irregular rhythm with controlled rate. S1 and S2 present, negative for S3, gallop or murmur. Heart hugger is in place and he is demonstrating appropriate use. Knee-high AVE hose and sequential compression devices in place to his bilateral lower extremities. No edema present. - Gastrointestinal Gastrointestinal Comment(s): Abdomen is soft, nontender and nondistended. Active bowel sounds to all 4 abdominal quadrants. No guarding or rigidity. Obese. Tolerating oral intake. Loose bowel movement this a.m. - Genitourinary Genitourinary Comment(s): Voiding clear yellow urine. - Integumentary Integumentary Comment(s): Skin is warm and dry. No clubbing or cyanosis is present. Midline sternal incision is clean, dry and approximated. No drainage or redness is present. Right lower extremity EVH site clean, dry and approximated. No drainage or redness is present. - Neurologic Neurologic: Present: CNII-XII intact - Musculoskeletal Musculoskeletal: Present: gait normal, strength equal bilaterally - Psychiatric Psychiatric: Present: A&O x's 3, appropriate affect, intact judgment & insight - Allied health notes Allied health notes reviewed: nursing - Labs CBC & Chem 7: 01/02/19 05:02 01/02/19 05:02 Labs: Abnormal Lab Results - Last 24 Hours (Table) 01/01/19 01/01/19 01/02/19 Range/Units 17:12 20:39 05:02 RBC 2.98 L (4.30-5.90) m/uL Hgb 8.8 L (13.0-17.5) gm/dL Hct 28.7 L (39.0-53.0) % MCHC 30.6 L (31.0-37.0) g/dL RDW 16.2 H (11.5-15.5) % Chloride (98-107) mmol/L Creatinine (0.66-1.25) mg/dL POC Glucose (mg/dL) 112 H 66 L (75-99) mg/dL 01/02/19 Range/Units 05:02 RBC (4.30-5.90) m/uL Hgb (13.0-17.5) gm/dL Hct (39.0-53.0) % MCHC (31.0-37.0) g/dL RDW (11.5-15.5) % Chloride 114 H (98-107) mmol/L Creatinine 1.31 H (0.66-1.25) mg/dL POC Glucose (mg/dL) (75-99) mg/dL Assessment and Plan (1) Atrial flutter by electrocardiogram Current Visit: Yes Status: Acute Code(s): I48.92 - UNSPECIFIED ATRIAL FLUTTER SNOMED Code(s): 887311783 (2) Acute kidney injury Current Visit: Yes Status: Acute Code(s): N17.9 - ACUTE KIDNEY FAILURE, UNSPECIFIED SNOMED Code(s): 21389100 (3) H/O aortic valve replacement Current Visit: Yes Status: Acute Code(s): Z95.2 - PRESENCE OF PROSTHETIC HEART VALVE SNOMED Code(s): 1868385527975 (4) History of coronary artery bypass graft x 1 Current Visit: Yes Status: Acute Code(s): Z95.1 - PRESENCE OF AORTOCORONARY BYPASS GRAFT SNOMED Code(s): 999095711 (5) Aortic stenosis Current Visit: No Status: Chronic Code(s): I35.0 - NONRHEUMATIC AORTIC ( VALVE) STENOSIS SNOMED Code(s): 45554496 (6) COPD (chronic obstructive pulmonary disease) Current Visit: No Status: Chronic Code(s): J44.9 - CHRONIC OBSTRUCTIVE PULMONARY DISEASE, UNSPECIFIED SNOMED Code(s): 89700973 (7) Coronary artery disease Current Visit: No Status: Chronic Code(s): I25.10 - ATHSCL HEART DISEASE OF [place] CORONARY ARTERY W/O ANG PCTRS SNOMED Code(s): 00965677 (8) Diabetes mellitus Current Visit: No Status: Chronic Code(s): E11.9 - TYPE 2 DIABETES MELLITUS WITHOUT COMPLICATIONS SNOMED Code(s): 48794261 (9) Family history of coronary artery disease Current Visit: No Status: Chronic Code(s): Z82.49 - FAMILY HX OF ISCHEM HEART DIS AND OTH DIS OF THE CIRC SYS SNOMED Code(s): 721153645 (10) Hyperlipidemia Current Visit: No Status: Chronic Code(s): E78.5 - HYPERLIPIDEMIA, UNSPECIFIED SNOMED Code(s): 92809686 (11) Hypertension Current Visit: No Status: Chronic Code(s): I10 - ESSENTIAL (PRIMARY) HYPERTENSION SNOMED Code(s): 80479047 (12) Obesity (BMI 30-39.9) Current Visit: No Status: Chronic Code(s): E66.9 - OBESITY, UNSPECIFIED SNOMED Code(s): 638516034 (13) Osteoarthritis Current Visit: No Status: Chronic Code(s): M19.90 - UNSPECIFIED OSTEOARTHRITIS, UNSPECIFIED SITE SNOMED Code(s): 164632602 (14) Tobacco dependence in remission Current Visit: No Status: Resolved Code(s): F17.201 - NICOTINE DEPENDENCE, UNSPECIFIED, IN REMISSION SNOMED Code(s): 885886349 (15) Depression Current Visit: Yes Status: Acute Code(s): F32.9 - MAJOR DEPRESSIVE DISORDER , SINGLE EPISODE, UNSPECIFIED SNOMED Code(s): 27053539 (16) DVT prophylaxis Current Visit: Yes Status: Acute Code(s): JFW4715 - SNOMED Code(s): 351387111 (17) Personal history of infected joint Current Visit: No Status: Acute Code(s): Z87.39 - PERSONAL HISTORY OF DISEASES OF THE MS SYS AND CONN TISS SNOMED Code(s): 281527336 Plan: 1. Continue low-dose aspirin, statin and beta paul. 2. Encourage use of his incentive spirometry every hour while awake. 3. Continue amiodarone for atrial fibrillation/atrial flutter prophylaxis. 4. Increase activity as tolerated. PT/OT following. 5. GI prophylaxis with Protonix. DVT prophylaxis with SCDs. 6. Pain control with current medication regimen. 7. Insulin management per primary care service. 8. Continue Eliquis 5 mg by mouth twice a day. 9. Antibiotic management per Dr. Hebert's recommendations. 10. Avoid nephrotoxic agents. Nephrology following 11. May transfer to [facility] on the [place] per the cardiothoracic standpoint when okay with primary care service. 12. More recommendations to follow based on patient's clinical course. Time with Patient: Greater than 30
[2019-01-02] MEDS: SODIUM FERRIC GLUCONAT-SUCROSE 125 MG in SODIUM CHLORIDE 0.9% 100 ML IVPB SCH (11:57)
[2019-01-02 12:25] LABS: Glucose,Whole Blood 96 mg/dL (75-99)
[2019-01-02 13:34] VITALS: BP 101/72; PULSE 91; RESP 18; TEMP 98.3
--- NOTE | 2019-01-02 13:50 | P.PN ---
Subjective Progress Note Date: 01/02/19 This is a 68-year-old male patient with known history of coronary artery disease and the patient underwent a single-vessel bypass surgery and aortic valve replacement on 12/02/2018 in our institution. The patient is also known to have hypertension and hyperlipidemia and diabetes mellitus and peripheral neuropathy. Is a former smoker. I was involved in this patient's postoperative care. The patient did well. The patient was discharged to [facility] on [facility] on on 12/09/2018. Note that the patient's aortic valve are present was done for severe aortic stenosis. He has some background COPD with an FEV1 of 56% of predicted. He is obese and his BMI is at 38.3. The patient did develop atrial fibrillation following his surgery. He did convert to normal sinus rhythm after he was given amiodarone. Upon discharge, he was given amiodarone 400 mg by mouth twice a day in addition to aspirin and metoprolol 50 mg by mouth twice a day. He was also given Lasix 40 mg by mouth daily. He was asked to continue Levemir insulin 40 units at bedtime and 20 units in the morning in addition to DuoNeb nebulized treatments on the clock. His regimen also includes a combination of aspirin and Plavix. He has also history of herpetic infection for which she is on Valtrex. The patient came in to the emergency department after he was found by his primary care physician to be in atrial fibrillation/flutter with rapid ventricular response. The patient was initially resting comfortably in his bed and he was not having any significant distress. He denies having any symptoms of chest pain or shortness of breath or dizziness. He stated that his heart was racing. In the emergency department, the patient was also found to be acute kidney injury. The creatinine at time of admission was 2.09 knowing that time of the chest creatinine was completely within normal limits. His current creatinine is at 1.8. The patient was initially admitted to selective unit where he was started on amiodarone bolus and while the bolus was infusing the patient went unresponsive. According to the rhythm strips, the patient had a positive around 5 seconds and he was briefly given CPR. He did wake up within a few seconds. The patient had a bowel movement following that and he also felt diaphoretic. He got moved to the intensive care unit. His current rhythm is a flutter with a rate of 117-120. He is on no amiodarone drip. He is taking metoprolol the dose of which was modified and the patient is currently taking 75 mg by mouth twice a day. He is also started on long-term anticoagulation with Eliquis. His sternum is stable clean and intact. He has not voided yet. He is receiving IV fluids in order of 80 mL an hour and he will be receiving IV fluid bolus as recommended by cardiology. Echocardiogram was done and the patient has a preserved LV function with an ejection fraction of 50-55% and there is no other valvular abnormalities. The aortic valve was not well visualized and the peak gradient across the valve was 11 mmHg and it is a normally functioning bioprosthetic valve. The right ventricular systolic pressure was not measured as there was no tricuspid regurgitation jet. On today's evaluation of 12/28/2018, the patient remains in atrial flutter. The rate is under better control and the patient is less tachycardic. He briefly went into a sinus rhythm yesterday however subsequently went back into a flutter rhythm. No chest pain. No palpitation. No shortness of breath. He did complain of right lower quadrant pain today. On examination he had direct and rebound tenderness. Based on that, he was sent for a stat CAT scan of the abdomen and pelvis that showed evidence of cecal inflammation. The area in the cecum was quite inflamed and swollen and there was diffuse thickening through the cecum and proximal ascending colon. For this reason, the patient was started on a combination of IV Rocephin and Flagyl. Gen. surgery was consulted. The patient likely had an embolic phenomena as the patient went into atrial flutter and he could've embolized to his bowel. Ischemic colitis, hypotension is another possibility. In any rate, the patient was seen by general surgery. He is not having any nausea or vomiting. His abdominal pain is around 2 out of 10 in severity. No altered mentation. His lactic acid level came back at 3.2. He is on IV fluids. He was given another bolus yesterday and his creatinine is improving and is down to 1.38. He is back on oral amiodarone 200 mg by mouth 3 times a day. He is also on metoprolol 75 mg by mouth twice a day and his heart rate is under much better control and today' s evaluation. On today's evaluation of 12/29/2018, the patient remains in a slower rate atrial flutter. He is doing well per no chest pain no shortness of breath. He still having right lower quadrant pain and would believe that the patient embolic phenomena causing acute inflammation of the cecum/ascending colon. He is on a combination of Rocephin and Flagyl. He is passing flatus per no signs of any bowel obstruction. No nausea or vomiting. He is tolerating clear liquid diet. His white cell count is at 7.4. His BUN is at 20 with a creatinine of 1.4. He remains on IV heparin and his PTT is therapeutic at this point in time. No fever. No chills. No chest pain. No shortness of breath. Resting comfortably in bed. Surgeries on the case regarding the abdominal findings. On 12/30/2018 the patient remains in intensive care unit. The patient remains in a a flutter rhythm and the rate is as high as low 100s and typically is running in the 80 beats per minute range. The patient is also on IV heparin. The patient is on oral amiodarone. No respiratory distress. His resting comfortably in bed. He is taking clear liquid diet. He still has a right abdominal quadrant tenderness in the right lower quadrant area. The overall tenderness is unchanged compared to yesterday. He has no abdominal distention. His passing flatus. I do not think there is any change in his abdominal exam compared to yesterday. Remains afebrile. No significant leukocytosis. He is not toxic at all. He is still receiving normal state rate of 80 mL an hour. He is on IV Rocephin and Flagyl as broad-spectrum antibiotic coverage. On 12/31/2018 seeing Mr. coronel for a follow-up. His condition essentially the same. No fever. No chills. He is having loose liquidy bowel movements. The Abdomen Shows No Free Air. He Remains in Atrial Flutter. He is taking, consistent low fiber diet. He is emanating in the hallway. No chest pain. No fever or chills. He remains on the same antibiotic coverage. Right lower quadrant remains tender. The metoprolol dose was increased up to 100 mg by mouth twice a day. He remains on a combination of Rocephin and Flagyl. He is also on amiodarone 400 mg by mouth 3 times a day. He remains on IV heparin and no plans to initiate long-term anticoagulation yet filled the abdominal findings improve On 01/01/2019, and seeing this patient for a follow-up. The patient is doing better. The right lower quadrant tenderness is improved compared to yesterday. His advancing his diet. He is ambulating. His rhythm is still in atrial fibrillation. He was taken off the IV heparin and he was started on oral Eliquis. She was under decent control. No fever. No chills. No leukocytosis. No other complaints otherwise for now. There is significant improvement in the right lower quadrant pain compared to yesterday. He was stable at 9.4. On 01/02/2019, the patient is afebrile hemodynamically. No significant abdominal pain. Ambulating. At times, the patient becomes tachycardic especially when he is ambulating. He is doing well. No significant respiratory distress. He is using incentive spirometer. His white cell count is at 5.6. He wants to go back to [facility] for further rehabilitation. No other complaints otherwise for now. Objective - Vital Signs Vital signs: Vital Signs Temp 98.3 F 01/02/19 12:00 Pulse 91 01/02/19 12:00 Resp 18 01/02/19 12:00 BP 101/72 01/02/19 12:00 Pulse Ox 96 01/02/19 12:00 Intake & Output 01/01/19 01/02/19 01/02/19 18:59 06:59 18:59 Intake Total 160 960 Output Total 500 600 200 Balance -340 360 -200 Weight 125 kg 128.3 kg Intake: IV 160 960 Sodium Chloride 0.9% 1, 160 960 000 ml @ 80 mls/hr IV . [id number] [facility] Rx#:[id number] Output: Urine 500 600 200 Other: Voiding Method Urinal Urinal Urinal # Voids 1 1 1 - Exam GENERAL: This is a 68-year-old male in no apparent distress at the time of my examination. HEENT: Head is atraumatic, normocephalic. Pupils are equal, round. Sclerae anicteric. Conjunctivae are clear. Mucous membranes of the mouth are moist. Neck is supple. There is no jugular venous distention. No carotid bruit is heard. LUNGS: Clear to auscultation no wheezes, rales or rhonchi. No chest wall tenderness is noted on palpation or with deep breathing. HEART: Irregular rate and rhythm with systolic ejection murmur at the base, no rubs or gallops. S1 and S2 heard. Heart [address] Sternal scar noted clean dry and intact. ABDOMEN: Soft, tender. Bowel sounds are heard. No organomegaly noted. The patient has no significant tenderness in the abdomen. No rebound tenderness. No guarding. No ascites. Bowel sounds are hypoactive at the present.EXTREMITIES: No evidence of peripheral edema and no calf tenderness noted. VASCULAR: Radial and dorsalis pedis pulses palpated, no evidence of clubbing. NEUROLOGIC: Patient is awake, alert and oriented x3. - Labs CBC & Chem 7: 01/02/19 05:02 01/02/19 05:02 Labs: Abnormal Lab Results - Last 24 Hours (Table) 01/01/19 01/01/19 01/02/19 Range/Units 17:12 20:39 05:02 RBC 2.98 L (4.30-5.90) m/uL Hgb 8.8 L (13.0-17.5) gm/dL Hct 28.7 L (39.0-53.0) % MCHC 30.6 L (31.0-37.0) g/dL RDW 16.2 H (11.5-15.5) % Chloride (98-107) mmol/L Creatinine (0.66-1.25) mg/dL POC Glucose (mg/dL) 112 H 66 L (75-99) mg/dL 01/02/19 Range/Units 05:02 RBC (4.30-5.90) m/uL Hgb (13.0-17.5) gm/dL Hct (39.0-53.0) % MCHC (31.0-37.0) g/dL RDW (11.5-15.5) % Chloride 114 H (98-107) mmol/L Creatinine 1.31 H (0.66-1.25) mg/dL POC Glucose (mg/dL) (75-99) mg/dL Assessment and Plan Plan: Assessment 1 atrial flutter, on anticoagulation, on amiodarone 200 mg by mouth 3 times a day and metoprolol 100 mg by mouth twice a day. 2 coronary artery disease with a recent single-vessel bypass surgery 3 acute right lower quadrant pain , likely secondary to an ischemic bowel, improved and the patient is tolerating his diet 4 diabetes mellitus type 2 with peripheral neuropathy 5 hypertension, history of 6 acute kidney injury, improving and the creatinine is down to 1.2 7 hyperlipidemia 8 COPD with a baseline FEV1 of 56% of predicted 9 history of depression 10 history of shingles currently on Valtrex for chronic suppression 11 history of right and left hip replacement with postoperative infections requiring antibiotics and the patient has been maintained on doxycycline outpatient basis 12 normocytic anemia Plan Clinically stable. Discharge planning is in progress. May discontinue antibiotics at the time of discharge.
--- NOTE | 2019-01-02 22:02 | PN ---
PROGRESS NOTE This patient was admitted with atrial flutter. Subsequently the patient developed ischemic colitis. Patient has been doing well. His heart rate remains under control. Blood pressure is 101/70 mmHg. Heart rate is 80 to 100 per minute. First and second heart sounds are normal. Lungs are clear to auscultation and percussion. The patient is going to be discharged home on medical treatment. If patient persists to be in atrial fibrillation, a cardioversion can be tried in 4-6 weeks after adequate anticoagulation. MADISON / NINFAN: [id number] /
== END 2019-01-02 15:01 | DRG 308 ==
LOC: EC 16:08 → 3SCARD 18:46 → 2SICU 12-27 11:40
PROVIDERS: ADMIT Internal Medicine Geriatric Medicine; ATTEND Internal Medicine Geriatric Medicine
PROC: 5A12012 Performance of Cardiac Output, Single, Manual (ICD-10-PCS; principal; 2018-12-27)
DX: I48.0 Paroxysmal atrial fibrillation (principal); N17.0 Acute kidney failure with tubular necrosis; K55.039 Acute (reversible) ischemia of large intestine, extent unspecified; F33.9 Major depressive disorder, recurrent, unspecified; J98.11 Atelectasis; J90 Pleural effusion, not elsewhere classified; I31.3 Pericardial effusion (noninflammatory); I48.3 Typical atrial flutter; I46.9 Cardiac arrest, cause unspecified; E11.42 Type 2 diabetes mellitus with diabetic polyneuropathy; J44.9 Chronic obstructive pulmonary disease, unspecified; E11.22 Type 2 diabetes mellitus with diabetic chronic kidney disease; E86.0 Dehydration; E66.01 Morbid (severe) obesity due to excess calories; B02.9 Zoster without complications; I08.1 Rheumatic disorders of both mitral and tricuspid valves; I95.9 Hypotension, unspecified; D64.9 Anemia, unspecified; I45.10 Unspecified right bundle-branch block; I25.10 Atherosclerotic heart disease of native coronary artery without angina pectoris; M19.90 Unspecified osteoarthritis, unspecified site; N18.2 Chronic kidney disease, stage 2 (mild); I12.9 Hypertensive chronic kidney disease with stage 1 through stage 4 chronic kidney disease, or unspecified chronic kidney disease; E78.5 Hyperlipidemia, unspecified; K21.9 Gastro-esophageal reflux disease without esophagitis; R00.1 Bradycardia, unspecified; E61.1 Iron deficiency; K80.20 Calculus of gallbladder without cholecystitis without obstruction; G89.4 Chronic pain syndrome; T46.2X5A Adverse effect of other antidysrhythmic drugs, initial encounter; Z71.3 Dietary counseling and surveillance; Z68.39 Body mass index [BMI] 39.0-39.9, adult; Z79.82 Long term (current) use of aspirin; Z79.899 Other long term (current) drug therapy; Z79.02 Long term (current) use of antithrombotics/antiplatelets; Z79.4 Long term (current) use of insulin; Z79.2 Long term (current) use of antibiotics; Z95.1 Presence of aortocoronary bypass graft; Z96.643 Presence of artificial hip joint, bilateral; Z87.01 Personal history of pneumonia (recurrent); Z95.3 Presence of xenogenic heart valve; Z86.19 Personal history of other infectious and parasitic diseases; Z85.828 Personal history of other malignant neoplasm of skin; Z87.891 Personal history of nicotine dependence; Z88.0 Allergy status to penicillin; Z83.3 Family history of diabetes mellitus; Z82.49 Family history of ischemic heart disease and other diseases of the circulatory system; Z81.8 Family history of other mental and behavioral disorders; Z83.430 Family history of elevated lipoprotein(a)
CPT/HCPCS: 36415; 71045; 74018; 74177; 80048; 80053; 82272; 82728; 83540; 83550; 83605; 83735; 84100; 84132; 84484; 85025; 85027; 85610; 85730; 87324; 93005; 93306; 94640; 94760; 96361; 96365; 96366; 96375; 96376; 99285

== ENCOUNTER → 2019-02-06 | Outpatient (CLI) | payer MEDICARE ==
--- NOTE | 2019-02-06 15:44 | CT ---
EXAMINATION TYPE: CT brain wo/w con DATE OF EXAM: 02/06/2019 COMPARISON: 12/05/2018 INDICATION: Syncope and dizziness post open heart x3 months ago DLP: 2250.3 mGycm, Automated exposure control for dose reduction was used. CONTRAST: 100 mL Isovue-300. CT of the brain is performed utilizing 3 mm thick sections through the posterior fossa and 3 mm thick sections through the remaining calvarium. Study is performed within 24 hours of arrival to the hosp [facility]. No abnormal hyperdensity is present to suggest an acute intracranial hemorrhage. No mass lesion is evident. There is a better delineated hypodense area in the periventricular white matter of the right lateral ventricle adjacent to the body. A lacunar infarct could be considered. This appears to have matured o robert the interval from the comparison study. No suspicious enhancement is evident at this location or elsewhere. Ventricles and sulci are appropriate for the patient age. Paranasal sinuses and mastoid air cells within the [id number] are clear. IMPRESSIONS: 1. Old 0.9 cm lacunar infarct right periventricular white matter. 2. Some mild right ventricular white matter hypodensity is present compatible some chronic white august er ischemic changes.
== END ==
LOC: RADCTMAIN 14:20
PROVIDERS: ATTEND Family Medicine
DX: R90.89 Other abnormal findings on diagnostic imaging of central nervous system (principal); Z95.2 Presence of prosthetic heart valve
CPT/HCPCS: 82565; 84520; 70470; 36415; Q9967

== ENCOUNTER → 2019-02-21 | Outpatient (CLI) | payer MEDICARE ==
[2019-02-21 11:03] LABS: HCT 40.4 % (39.0-53.0); Hypochromasia Slight; MCH 28.8 pg (25.0-35.0); MCHC 32.3 g/dL (31.0-37.0); Mean Platelet Volume 7.4; Platelet Count 221 k/uL (150-450); Poikilocytosis Slight; RBC 4.52 m/uL (4.30-5.90); RDW 15.7 % (11.5-15.5)
[2019-02-21 11:13] LABS: Potassium 4.3 mmol/L (3.5-5.1)
[2019-02-21 11:20] LABS: MCV 89.3 fL (80.0-100.0)
== END ==
LOC: LABPAT 10:34
PROVIDERS: ATTEND Internal Medicine Clinical Cardiac Electrophysiology
DX: Z01.812 Encounter for preprocedural laboratory examination (principal); I48.3 Typical atrial flutter
CPT/HCPCS: 36415; 80051; 82565; 82947; 84520; 85027

== ENCOUNTER 2019-02-23 10:44 | Day surgery (SDC) | payer MEDICARE ==
[2019-02-20 13:18] VITALS: BMI 38.0
[~2019-02-23 10:44] MED LIST changes: -ALPRAZolam 0.25 MG TAB PO PRN; -ALPRAZolam 0.5 MG TAB PO PRN; -ASPIRIN 325 MG TAB PO STA; -ATORVASTATIN 80 MG TAB PO STA; +DEXAMETHASONE SOD PHOSPHATE 10 MG/ML 1 ML VIAL IV ONE; +LIDOCAINE 1% 20 ML VIAL (10MG/ML) FOR IV START INTRADERMA PRN; -NITROGLYCERIN SL TABS 0.4 MG TAB SUBLINGUAL PRN; -SODIUM CHLORIDE 0.9% 1,000 ML in EMPTY BAG 1 BAG IV ONE; +fentaNYL (PF) 50 MCG/ML 2 ML AMP IV PRN
[2019-02-23 11:45] LABS: Glucose,Whole Blood 159 mg/dL (75-99)
[2019-02-23] MEDS ORDERED: LIDOCAINE 1% INJ 10MG/ML (20 ML MDV) ONE (11:57)
[2019-02-23] MEDS ORDERED: HEPARIN SODIUM 1,000 UN/ML (10ML VL) ONE (11:58)
[2019-02-23] MEDS ORDERED: MIDAZOLAM 2 MG/2 ML VIAL ONE (11:59)
[2019-02-23] MEDS ORDERED: PROPOFOL 10 MG/ML 20 ML VIAL IV ONE (11:59)
[2019-02-23] MEDS ORDERED: ISOPROTERENOL 250 MCG/1.25 ML SYR IV ONE (11:59)
[2019-02-23] MEDS ORDERED: ROCURONIUM BROMIDE 10 MG/ML 10 ML VIAL IV ONE (11:59)
[2019-02-23] MEDS ORDERED: fentaNYL (PF) 50 MCG/ML 2 ML AMP ONE (11:59)
[2019-02-23] MEDS ORDERED: ePHEDrine SULFATE/0.9% NACL/PF 50 MG/5 ML SYRINGE IV ONE ×2 (11:59)
[2019-02-23] MEDS ORDERED: SODIUM CHLORIDE 0.9% 1,000 ML IV ONE (12:04)
[2019-02-23] MEDS ORDERED: LIDOCAINE 1% INJ 10MG/ML (20 ML MDV) SQ ONE (12:56)
[2019-02-23] MEDS ORDERED: HEPARIN SODIUM (1,000 UNIT/ML) 1,000 UNIT in SODIUM CHLORIDE 0.9% 1,000 ML IRRIGATION ONE (13:17)
[2019-02-23] MEDS: LACTATED RINGERS 1,000 ML IV SCH (14:58)
[2019-02-23] MEDS: SODIUM CHLORIDE 0.9% 1,000 ML IV SCH (14:58)
--- NOTE | 2019-02-23 15:04 | P.PRLE ---
RE: AndrewNick Dear Jonathan Mr. coronel underwent successful radiofrequency ablation for typical atrial flutter with confirmed bidirectional block with differential pacing. His proce dure went very well without any acute complications He will continue with anticoagulants and will follow-up with you and Dr. Messina as before Thank you for entrusting me with the care of the patient Warm regards Sincerely Sha Maravilla
[2019-02-23] MEDS ORDERED: ACETAMINOPHEN TAB 325 MG TAB PO PRN (15:05)
[2019-02-23 15:18] LABS: Glucose,Whole Blood 120 mg/dL (75-99)
[2019-02-23] MEDS: metFORMIN 500 MG TAB PO SCH (17:00)
--- NOTE | 2019-02-23 20:01 | PCN ---
PROCEDURE NOTE Nick Morales is a 69-year-old male patient who has typical atrial flutter with RVR with shortness of breath on exertion as well as rapid ventricular response. This has been difficult to rate control. He is appropriately anticoagulated on Eliquis. He has a history of valvular heart disease with aortic valve replacement. The patient was brought to the EP lab in a fasting state. Written informed consent was obtained prior to the procedure. The right and left groins were prepped and draped as per protocol. Venous sheaths were placed in the right and left femoral veins. Via these diagnostic mapping and ablation catheters were placed. The patient was in atrial flutter at the start of the study. The tachycardia cycle length was 243 milliseconds. Later, once he converted to sinus rhythm, his sinus cycle length was 764 milliseconds, MS interval 185 milliseconds, QRS 112 milliseconds, QT interval 390 milliseconds. Intracardiac echo catheter was placed. Coronary sinus catheter was placed. Mapping and ablation catheter was placed. Three-D mapping was performed. He had a very long right atrial cavotricuspid isthmus, almost of 5 cm. Entrainment mapping was first performed. Three-D mapping was performed. This was confirmed to be isthmus-dependent and then RF ablation was performed. During RF ablation, the tachycardia terminated, and thereafter the rest of the procedure was performed in sinus rhythm. A complete anatomic line of block was made from the tricuspid anulus to the IVC. This line was interrogated with 100% grid. No anatomic gaps were left. Differential pacing was performed and bidirectional block was noted. The isthmus conduction time was almost 100 90 milliseconds. Following that, a full EP study was performed on and off Isuprel. No other arrhythmias were induced. Sinus node recovery times of 600, 500 and 400 milliseconds were 916, 971 and 958 milliseconds. AV node Wenckebach block 460 milliseconds. AH interval 99 milliseconds. HV interval 63 milliseconds. VA Wenckebach block greater than 600 milliseconds. Atrial extrastimulation was performed from the high right atrium and atrial ERP 450/210 milliseconds. Atrial ERP from the coronary sinus was 400/200 milliseconds. No other arrhythmia was induced. No arrhythmia was induced during atrial pacing on Isuprel. Intracardiac echo at the end of the procedure did not reveal any pericardial effusion. The left atrial appendage was also well evident only in sinus rhythm. There was no intracardiac mass or thrombus. In addition, the patient had a dilated left atrium with a large fossa ovalis and a common left-sided pulmonary venous os which was funnel- shaped and large. He also had a large right superior pulmonary vein and a smaller right inferior pulmonary vein. No clot was noted in the right atrial appendage either. The patient tolerated the procedure well without any acute complications. RESULTS: Successful atrial flutter ablation with confirmation of bidirectional block with differential pacing. Very long isthmus of 5 cm. MMODL / IJN: [id number] /
[2019-02-23] MEDS ORDERED: PANTOPRAZOLE 40 MG TABLET PO SCH (21:00)
[2019-02-23] MEDS ORDERED: INSULIN DETEMIR (LEVEMIR) 100 UNIT/ML SYR SQ SCH (21:00)
[2019-02-23 21:03] LABS: Glucose,Whole Blood 148 mg/dL (75-99)
[2019-02-23] MEDS: APIXABAN 5 MG TAB PO SCH (21:06)
[2019-02-23] MEDS: hydrALAZINE HCL 25 MG TAB PO SCH (21:06)
[2019-02-23] MEDS: PREGABALIN 75 MG CAP PO SCH (21:07)
[2019-02-24] MEDS: LACTATED RINGERS 1,000 ML IV SCH (05:31)
[2019-02-24] MEDS: SODIUM CHLORIDE 0.9% 1,000 ML IV SCH (05:31)
[2019-02-24 06:41] LABS: Glucose,Whole Blood 115 mg/dL (75-99)
[2019-02-24 07:53] VITALS: BP 113/68; PULSE 90; RESP 18; TEMP 98.4
--- NOTE | 2019-02-24 08:26 | P.DS ---
Providers Attending physician: Sha Maravilla Primary care physician: [facility] Course: Patient is doing well. He is lying comfortably in bed. He ablated to the bathroom without any problems. He remains in sinus rhythm at for ablation No chest discomfort dizziness lightheadedness Mild tenderness in the groin that is no hematoma no swelling Vitals are stable she's afebrile 98.4F pulse rate in the 90s blood pressure 113/68 mmHg Sounds are clear no rhonchi no crackles S1 is soft S2 is crisp, status post aortic valve replacement Abdomen soft nontender Groins have healed well there is no hematoma no swelling Impression Sustained atrial flutter with RVR symptomatic Status post atrial flutter ablation Aortic valve disease status post replacement in the past Suggest Continue anticoagulation Continue current medications Discharge home today if hemodynamically stable and ambulating in the hallways Follow-up with Dr. Brennan within one to 2 weeks for a groin check Plan - Discharge Summary Discharge Rx Participant: No New Discharge Prescriptions: No Action valACYclovir HCL [Valtrex] 500 mg PO DAILY Citalopram Hydrobromide [CeleXA] 40 mg PO DAILY Cholecalciferol [Vitamin D3] 1,000 unit PO DAILY Atorvastatin [Lipitor] 40 mg PO DAILY tab Insulin Lispro [humaLOG Kwikpen] See Protocol SQ TID-W/MEALS PRN PRN Reason: Blood Sugar - High Pantoprazole [Protonix] 40 mg PO HS Apixaban [Eliquis] 5 mg PO BID #60 tab Insulin Glargine [Lantus] 40 unit SQ HS Insulin Glargine [Lantus] 20 unit SQ QAM Pregabalin [Lyrica] 150 mg PO BID hydrALAZINE HCL [Apresoline] 25 mg PO BID Lisinopril [Prinivil] 10 mg PO DAILY metFORMIN HCL [Glucophage] 500 mg PO BID Discharge Medication List valACYclovir HCL [Valtrex] 500 mg PO DAILY 07/18/15 [History] Citalopram Hydrobromide [CeleXA] 40 mg PO DAILY 10/02/17 [History] Cholecalciferol [Vitamin D3] 1,000 unit PO DAILY 11/12/18 [History] Atorvastatin [Lipitor] 40 mg PO DAILY tab 12/09/18 [Rx] Insulin Lispro [humaLOG Kwikpen] See Protocol SQ TID-W/MEALS PRN 12/26/18 [History] Pantoprazole [Protonix] 40 mg PO HS 12/26/18 [History] Apixaban [Eliquis] 5 mg PO BID #60 tab 01/02/19 [Rx] Insulin Glargine [Lantus] 20 unit SQ QAM 02/20/19 [History] Insulin Glargine [Lantus] 40 unit SQ HS 02/20/19 [History] Lisinopril [Prinivil] 10 mg PO DAILY 02/20/19 [History] Pregabalin [Lyrica] 150 mg PO BID 02/20/19 [History] hydrALAZINE HCL [Apresoline] 25 mg PO BID 02/20/19 [History] metFORMIN HCL [Glucophage] 500 mg PO BID 02/20/19 [History]
[2019-02-24] MEDS: hydrALAZINE HCL 25 MG TAB PO SCH (08:35)
[2019-02-24] MEDS: PREGABALIN 75 MG CAP PO SCH (08:35)
[2019-02-24] MEDS: APIXABAN 5 MG TAB PO SCH (08:35)
[2019-02-24] MEDS: metFORMIN 500 MG TAB PO SCH (08:35)
[2019-02-24] MEDS ORDERED: LISINOPRIL 10 MG TAB PO SCH (09:00)
[2019-02-24] MEDS ORDERED: INSULIN DETEMIR (LEVEMIR) 100 UNIT/ML SYR SQ SCH (09:00)
[2019-02-24] MEDS ORDERED: CITALOPRAM HYDROBROMIDE 20 MG TAB PO SCH (09:00)
[2019-02-24] MEDS ORDERED: valACYclovir 500 MG TAB PO SCH (09:00)
[2019-02-24] MEDS ORDERED: ATORVASTATIN 40 MG TAB PO SCH (09:00)
== END 2019-02-24 10:50 | disposition home or self-care (01) ==
LOC: CATHEP 10:44 → 1SOBS 14:20 → CATHEP 02-24 10:50
PROVIDERS: ATTEND Internal Medicine Clinical Cardiac Electrophysiology
DX: I48.3 Typical atrial flutter (principal); I10 Essential (primary) hypertension; E11.9 Type 2 diabetes mellitus without complications; E78.5 Hyperlipidemia, unspecified; I25.10 Atherosclerotic heart disease of native coronary artery without angina pectoris; Z95.1 Presence of aortocoronary bypass graft; Z95.2 Presence of prosthetic heart valve; Z79.82 Long term (current) use of aspirin; Z82.49 Family history of ischemic heart disease and other diseases of the circulatory system; Z87.891 Personal history of nicotine dependence; Z79.4 Long term (current) use of insulin; Z79.899 Other long term (current) drug therapy; Z79.01 Long term (current) use of anticoagulants; Z88.0 Allergy status to penicillin
CPT/HCPCS: 93623; 93662; 93613; 93653; C1894; C1769 ×2; C1730; C1759; C1893; C1732; J2250; J2001; J3010; J1644; J2704

== ENCOUNTER 2019-08-17 13:35 | Emergency (ER) | payer MEDICARE ==
[2019-08-17] MEDS ORDERED: DIPHENOX-ATROP STARTER PACK 8 TAB BTL PO STA (14:12)
[2019-08-17] MEDS ORDERED: ONDANSETRON 4 MG/2 ML VIAL IVP STA (14:12)
[2019-08-17] MEDS ORDERED: SODIUM CHLORIDE 0.9% 1,000 ML IV ONE (14:12)
--- NOTE | 2019-08-17 14:16 | ED ---
General Adult HPI - General Chief complaint: Chest Pain Stated complaint: SOB, Chest Pain, NVD Time Seen by Provider: 08/17/19 13:40 Source: patient, RN notes reviewed Mode of arrival: ambulatory Limitations: no limitations - History of Present Illness Initial comments: This is a 69-year-old male who presents emergency Department with a past medical history significant for bypass surgery. She states she comes emergency Department today because she's had two-week history of diarrhea and vomiting. Patient states he hasn't vomited anything recently just having dry heaves because he has nothing in the stomach. Patient's states the last time he vomi darryl was last night and thus admitted diarrhea was yesterday during the day. believes he is dehydrated. Patient states she's been having chest pain for months and since she was released from the longterm his chest pain in the center of his chest is been getting slowly worse but nothing has changed acutely over the last few days. Patient denies any difficulty breathing shortest breath. Patient denies any episodes of diaphoresis per patient denies any fever chills per patient denies any lightheadedness or dizziness. - Related Data Home Medications Medication Instructions Recorded Confirmed valACYclovir HCL [Valtrex] 500 mg PO DAILY 07/18/15 08/17/19 Citalopram Hydrobromide [CeleXA] 40 mg PO DAILY 10/02/17 08/17/19 Cholecalciferol [Vitamin D3 (25 1,000 unit PO DAILY 11/12/18 08/17/19 Mcg = 1000 Iu)] Insulin Lispro [humaLOG Kwikpen] See Protocol SQ TID-W/MEALS PRN 12/26/18 08/17/19 Pantoprazole [Protonix] 40 mg PO HS 12/26/18 08/17/19 Insulin Glargine [Lantus] 20 unit SQ QAM 02/20/19 08/17/19 Insulin Glargine [Lantus] 40 unit SQ HS 02/20/19 08/17/19 Lisinopril [Prinivil] 10 mg PO DAILY 02/20/19 08/17/19 Pregabalin [Lyrica] 150 mg PO BID 02/20/19 08/17/19 hydrALAZINE HCL [Apresoline] 25 mg PO BID 02/20/19 08/17/19 metFORMIN HCL [Glucophage] 500 mg PO BID 02/20/19 08/17/19 Apixaban [Eliquis] 5 mg PO BID 08/17/19 08/17/19 Atorvastatin [Lipitor] 40 mg PO HS 08/17/19 08/17/19 Furosemide [Lasix] 40 mg PO BID 08/17/19 08/17/19 Previous Rx's Medication Instructions Recorded Ondansetron Odt [Zofran Odt] 4 mg PO Q8HR PRN #10 tab 08/17/19 Allergies Allergy/AdvReac Type Severity Reaction Status Date / Time Penicillins Allergy Rash/Hives/ Verified 08/17/19 15:00 SOB Review of Systems ROS Statement: Those systems with pertinent positive or pertinent negative responses have been documented in the HPI. ROS Other: All systems not noted in ROS Statement are negative. Past Medical History Past Medical History: Cancer, Diabetes Mellitus, Hyperlipidemia, Osteoarthritis (OA), Pneumonia, Skin Disorder, Syncope Additional Past Medical History / Comment(s): see Dr Maravilla H&P, hx skin cancer, dizziness-using a walker, has had a few falls recently History of Any Multi-Drug Resistant Organisms: None Reported Past Surgical History: Cardiac Valve Replacement, Coronary Bypass/CABG, Heart Catheterization, Joint Replacement, Orthopedic Surgery Additional Past Surgical History / Comment(s): kary hip replacements(2 each hip)+surgeries for post op infections, CABG and valve replacement, removal of skin cancer, Past Anesthesia/Blood Transfusion Reactions: No Reported Reaction Additional Past Anesthesia/Blood Transfusion Reaction / Comment(s): Pt has received blood transfusion without reaction. Past Psychological History: No Psychological Hx Reported Smoking Status: Former smoker Past Alcohol Use History: Rare Past Drug Use History: None Reported - Past Family History Mother Family Medical History: Deep Vein Thrombosis (DVT) Brother(s) Family Medical History: Diabetes Mellitus, Hyperlipidemia, Hypertension Son(s) Family Medical History: No Reported History General Exam - General Exam Comments Initial Comments: GENERAL: Patient is well-developed and well-nourished. Patient is nontoxic and well- hydrated and is in mild distress. ENT: Neck is soft and supple. No significant lymphadenopathy is noted. Oropharynx is clear. Dry mucous membranes. Neck has full range of motion without el iciting any pain. EYES: The sclera were anicteric and conjunctiva were pink and moist. Extraocular movements were intact and pupils were equal round and reactive to light. Eyelids were unremarkable. PULMONARY: Unlabored respirations. Good breath sounds bilaterally. No audible rales rhonchi or wheezing was noted. CARDIOVASCULAR: There is a regular rate and rhythm without any murmurs gallops or rubs. ABDOMEN: Mild epigastric tenderness. No palpable organomegaly was noted. There is no palpable pulsatile mass. SKIN: Skin is clear with no lesions or rashes and otherwise unremarkable. NEUROLOGIC: Patient is alert and oriented x3. Cranial nerves II through XII are grossly intact. Motor and sensory are also intact. Normal speech, volume and content. Symmetrical smile. MUSCULOSKELETAL: Normal extremities with adequate strength and full range of motion. No lower extremity swelling or edema. No calf tenderness. LYMPHATICS: No significant lymphadenopathy is noted PSYCHIATRIC: Normal psychiatric evaluation. Limitations: no limitations Course Vital Signs 08/17/19 08/17/19 08/17/19 13:41 13:53 14:00 Temperature 97.8 F Pulse Rate 67 67 Respiratory 16 18 18 Rate Blood Pressure 100/54 119/65 O2 Sat by Pulse 98 97 98 Oximetry 08/17/19 08/17/19 08/17/19 14:30 15:00 15:30 Temperature Pulse Rate 65 63 63 Respiratory 18 18 18 Rate Blood Pressure 104/56 110/54 138/63 O2 Sat by Pulse 97 97 96 Oximetry 08/17/19 16:00 Temperature Pulse Rate 63 Respiratory 18 Rate Blood Pressure 123/65 O2 Sat by Pulse 98 Oximetry Medical Decision Making - Medical Decision Making EKG shows normal sinus rhythm at 60 bpm IL interval 178 QRSs 108 QT interval 408 QTC is 433. Patient's EKG shows some slight ST segment depression in leads V5 and V6 as well as 1 and lead 2 I went back into the room and informed the patient that his kidney function worse than it normally is. I also thought the patient was dehydrated but we did hydrate him with normal saline the emergency department. I offered to try a fluid challenge with the patient but he did not want to be stated he wanted to go home and try to eat there. I told the patient I would send him home with a prescription for Zofran. He and his were happy with that. At this time patient had no complaints - Lab Data Result diagrams: 08/17/19 14:02 08/17/19 14:02 Lab Results 08/17/19 08/17/19 08/17/19 Range/Units 14:02 14:02 14:02 WBC 11.6 H (3.8-10.6) k/uL RBC 4.62 (4.30-5.90) m/uL Hgb 15.1 (13.0-17.5) gm/dL Hct 42.8 (39.0-53.0) % MCV 92.7 (80.0-100.0) fL MCH 32.7 (25.0-35.0) pg MCHC 35.3 (31.0-37.0) g/dL RDW 15.1 (11.5-15.5) % Plt Count 226 (150-450) k/uL Neutrophils % 65 % Lymphocytes % 27 % Monocytes % 4 % Eosinophils % 2 % Basophils % 0 % Neutrophils # 7.6 (1.3-7.7) k/uL Lymphocytes # 3.1 (1.0-4.8) k/uL Monocytes # 0.5 (0-1.0) k/uL Eosinophils # 0.2 (0-0.7) k/uL Basophils # 0.0 (0-0.2) k/uL Poikilocytosis Slight PT 10.4 (9.0-12.0) sec INR 1.0 (<1.2) APTT 24.2 (22.0-30.0) sec Sodium 139 (137-145) mmol/L Potassium 4.3 (3.5-5.1) mmol/L Chloride 102 (98-107) mmol/L Carbon Dioxide 22 (22-30) mmol/L Anion Gap 15 mmol/L BUN 34 H (9-20) mg/dL Creatinine 2.19 H (0.66-1.25) mg/dL Est GFR (CKD-EPI)AfAm 34 (>60 ml/min/1.73 sqM) Est GFR (CKD-EPI)NonAf 29 (>60 ml/min/1.73 sqM) Glucose 203 H (74-99) mg/dL Calcium 9.8 (8.4-10.2) mg/dL Magnesium 1.8 (1.6-2.3) mg/dL Total Bilirubin 1.9 H (0.2-1.3) mg/dL AST 28 (17-59) U/L ALT 29 (21-72) U/L Alkaline Phosphatase 124 (38-126) U/L Troponin I (0.000-0.034) ng/mL Total Protein 7.9 (6.3-8.2) g/dL Albumin 4.8 (3.5-5.0) g/dL Amylase 49 (30-110) U/L Lipase 110 (23-300) U/L 08/17/19 Range/Units 14:02 WBC (3.8-10.6) k/uL RBC (4.30-5.90) m/uL Hgb (13.0-17.5) gm/dL Hct (39.0-53.0) % MCV (80.0-100.0) fL MCH (25.0-35.0) pg MCHC (31.0-37.0) g/dL RDW (11.5-15.5) % Plt Count (150-450) k/uL Neutrophils % % Lymphocytes % % Monocytes % % Eosinophils % % Basophils % % Neutrophils # (1.3-7.7) k/uL Lymphocytes # (1.0-4.8) k/uL Monocytes # (0-1.0) k/uL Eosinophils # (0-0.7) k/uL Basophils # (0-0.2) k/uL Poikilocytosis PT (9.0-12.0) sec INR (<1.2) APTT (22.0-30.0) sec Sodium (137-145) mmol/L Potassium (3.5-5.1) mmol/L Chloride (98-107) mmol/L Carbon Dioxide (22-30) mmol/L Anion Gap mmol/L BUN (9-20) mg/dL Creatinine (0.66-1.25) mg/dL Est GFR (CKD-EPI)AfAm (>60 ml/min/1.73 sqM) Est GFR (CKD-EPI)NonAf (>60 ml/min/1.73 sqM) Glucose (74-99) mg/dL Calcium (8.4-10.2) mg/dL Magnesium (1.6-2.3) mg/dL Total Bilirubin (0.2-1.3) mg/dL AST (17-59) U/L ALT (21-72) U/L Alkaline Phosphatase (38-126) U/L Troponin I <0.012 (0.000-0.034) ng/mL Total Protein (6.3-8.2) g/dL Albumin (3.5-5.0) g/dL Amylase (30-110) U/L Lipase (23-300) U/L Disposition Clinical Impression: Renal insufficiency, Gastroenteritis Disposition: ADMITTED IP TO THIS [facility] Instructions (If sedation given, give patient instructions): Gastroenteritis (ED) Prescriptions: Ondansetron Odt [Zofran Odt] 4 mg PO Q8HR PRN #10 tab PRN Reason: Nausea Is patient prescribed a controlled substance at d/c from ED?: No Referrals: Jonathan Graham DO [Primary Care Provider] - 1-2 days Time of Disposition: 17:05
[2019-08-17] MEDS ORDERED: DIPHENOX-ATROP 2.5-0.025 MG 1 EACH TAB PO STA (14:19)
[2019-08-17] MEDS: SODIUM CHLORIDE 0.9% 500 ML 500 ML IV ONE ×2 (14:30→15:53)
[2019-08-17 14:36] LABS: Basophils % (A) 0 %; Eosinophils # (A) 0.2 k/uL (0-0.7); Eosinophils % (A) 2 %; HCT 42.8 % (39.0-53.0); HGB 15.1 gm/dL (13.0-17.5); Lymphocytes # (A) 3.1 k/uL (1.0-4.8); Lymphocytes % (A) 27 %; MCH 32.7 pg (25.0-35.0); MCHC 35.3 g/dL (31.0-37.0); MCV 92.7 fL (80.0-100.0); Monocytes # (A) 0.5 k/uL (0-1.0); Monocytes % (A) 4 %; Neutrophils # (A) 7.6 k/uL (1.3-7.7); Neutrophils % (A) 65 %; Platelet Count 226 k/uL (150-450); Poikilocytosis Slight; RBC 4.62 m/uL (4.30-5.90); RDW 15.1 % (11.5-15.5); WBC 11.6 k/uL (3.8-10.6)
--- NOTE | 2019-08-17 14:36 | XR ---
EXAMINATION TYPE: XR chest 2V DATE OF EXAM: 08/17/2019 COMPARISON: 01/01/2019 TECHNIQUE: PA and lateral views submitted. HISTORY: Shortness of breath FINDINGS: The lungs are clear and there is no pneumothorax, pleural effusion, or focal pneumonia. Postsurgica l changes and cardiomegaly. No overt failure. Arthropathy of the shoulders. IMPRESSION: 1. No acute process.
[2019-08-17 14:45] LABS: Albumin 4.8 g/dL (3.5-5.0); Calcium 9.8 mg/dL (8.4-10.2); Magnesium 1.8 mg/dL (1.6-2.3); Potassium 4.3 mmol/L (3.5-5.1); Total Bilirubin 1.9 mg/dL (0.2-1.3); Total Protein 7.9 g/dL (6.3-8.2)
[2019-08-17 14:48] LABS: Partial Thromboplastin Time 24.2 sec (22.0-30.0); Prothrombin Time 10.4 sec (9.0-12.0)
[2019-08-17 16:08] VITALS: RESP 18
[2019-08-17 17:40] VITALS: BP 119/65; PULSE 71; TEMP 98.6
== END 2019-08-17 17:42 | disposition other institution (70) ==
LOC: EC 13:35
DX: K52.9 Noninfective gastroenteritis and colitis, unspecified (principal); N28.9 Disorder of kidney and ureter, unspecified; E86.0 Dehydration; E11.9 Type 2 diabetes mellitus without complications; E78.5 Hyperlipidemia, unspecified; M19.90 Unspecified osteoarthritis, unspecified site; Z79.4 Long term (current) use of insulin; Z79.01 Long term (current) use of anticoagulants; Z79.899 Other long term (current) drug therapy; Z88.0 Allergy status to penicillin; Z95.1 Presence of aortocoronary bypass graft; Z95.2 Presence of prosthetic heart valve; Z96.643 Presence of artificial hip joint, bilateral; Z85.828 Personal history of other malignant neoplasm of skin; Z87.891 Personal history of nicotine dependence
CPT/HCPCS: 99285; 96374; 96361 ×2; 36415; 93005; 80053; 82150; 83690; 83735; 84484; 85025; 85610; 85730; 71046; J2405

== ENCOUNTER → 2019-10-16 | Outpatient (CLI) | payer MEDICARE ==
[2019-10-16 23:37] LABS: T4, Free (Free Thyroxine) 1.5 ng/dL (0.80-1.80)
== END | disposition home or self-care (01) ==
LOC: LABWHC1 16:18
PROVIDERS: ATTEND Physician Assistant
DX: R00.0 Tachycardia, unspecified (principal)
CPT/HCPCS: 36415; 84439; 84443; 84481

== ENCOUNTER → 2022-02-13 | Outpatient (CLI) | payer MEDICARE ==
--- NOTE | 2022-02-13 16:10 | US ---
EXAMINATION TYPE: US st tissue neck DATE OF EXAM: 02/13/2022 COMPARISON: NONE CLINICAL HISTORY: 72-year-old male RIGHT LYMPH NODE AND MASS. Palpable under right mandible, pt unsur e how long it has been there, no infection, no pain TECHNIQUE: Targeted ultrasound examination of the patient's palpable site, right submandibular region . FINDINGS: Government Sales Manager notes: Soft tissue scan showed 1.7 x 0.6 x 1.5cm lymph node. No other solid or cystic le benita. IMPRESSION: Targeted scanning of the patient's palpable site, right submandibular region shows a mildly enlarged 1.5 cm short axis lymph node. This may be reactive/post inflammatory and can be followed clinically. If any progressive enlargement, the area can be rescanned.
== END | disposition home or self-care (01) ==
LOC: RADUSWWP 13:22
PROVIDERS: ATTEND Family Medicine
DX: R59.0 Localized enlarged lymph nodes (principal)
CPT/HCPCS: 76536

== ENCOUNTER → 2022-03-20 | Outpatient (CLI) | payer MEDICARE ==
--- NOTE | 2022-03-20 13:45 | CT ---
EXAMINATION TYPE: CT soft tissue neck w con DATE OF EXAM: 03/20/2022 COMPARISON: 12/05/2018 HISTORY: Rt oropharnyx lesion, Lump marked with BB on scan CT DLP: 973 mGycm CONTRAST: Patient injected with 80 mL of Isovue 300. TECHNIQUE: Axial images at 3 mm thick sections. Reconstructed images in the coronal plane and sagitt al plane are reviewed. FINDINGS: Limited CT sections are obtained the lung apices. The lung apices appear clear. Thyroid is visualized appears normal. Subglottic airway is unremarkable. CT neck: The torus tubarius and fossa of Rosenmuller are normal. Crate Maker spaces are normal. Parotid glands appear normal and symmetrical. Submandibular glands, are normal. Parapharyngeal spac es are normal. No suspicious adenopathy is evident. The hypopharynx appears within normal limits. Vocal cord level appear symmetrical. Osseous structures are normal. BB is on the right at the level of the hyoid bone. No discrete mass or underlying abnormality is iden tified at this level. No suspicious masses are more superior to this level. IMPRESSIONS: 1. No suspicious masses or radiographic abnormality at the level marked by the BB. No suspicious righ t oropharynx. Lesion is identified
== END | disposition home or self-care (01) ==
LOC: RADCTMAIN 06:37
PROVIDERS: ATTEND Otolaryngology
DX: R22.1 Localized swelling, mass and lump, neck (principal)
CPT/HCPCS: 82565; 84520; 70491; 36415; Q9967

== ENCOUNTER 2022-03-28 10:42 | Day surgery (SDC) | payer MEDICARE ==
[~2022-03-28 10:42] MED LIST changes: -DEXAMETHASONE SOD PHOSPHATE 10 MG/ML 1 ML VIAL IV ONE; +FAMOTIDINE 20 MG/2 ML VIAL IV PRN; +HYDROmorphone 0.5 MG/0.5 ML SYRINGE IVP PRN; +LACTATED RINGERS 1,000 ML IV SCH; +LIDOCAINE 1% (10MG/ML) FOR IV START INTRADERMA PRN; -LIDOCAINE 1% 20 ML VIAL (10MG/ML) FOR IV START INTRADERMA PRN; +ONDANSETRON 4 MG/2 ML VIAL IVP ONE; +ONDANSETRON 4 MG/2 ML VIAL IVP PRN; -fentaNYL (PF) 50 MCG/ML 2 ML AMP IV PRN; +metroNIDAZOLE-NS PMX 500 MG in SALINE 1 100ML.BAG IVPB PRN
[2022-03-28 11:45] LABS: Glucose,Whole Blood 82 mg/dL (75-99)
[2022-03-28] MEDS ORDERED: LIDOCAINE 2% INJ 20 MG/ML (2 ML VIAL) ONE (13:08)
[2022-03-28] MEDS ORDERED: fentaNYL (PF) 50 MCG/ML 2 ML AMP ONE (13:08)
[2022-03-28] MEDS ORDERED: SUCCINYLCHOLINE CHLORIDE 100 MG/5 ML SYR IV ONE (13:08)
[2022-03-28] MEDS ORDERED: MIDAZOLAM 2 MG/2 ML VIAL ONE (13:08)
[2022-03-28] MEDS ORDERED: PROPOFOL 10 MG/ML 20 ML VIAL IV ONE (13:08)
[2022-03-28] MEDS ORDERED: ROCURONIUM 10 MG/ML (5 ML VIAL) IV ONE (13:08)
--- NOTE | 2022-03-28 13:52 | P.PCN ---
Date of Procedure: 03/28/22 Preoperative Diagnosis: Right tonsil mass Postoperative Diagnosis: Same Procedure(s) Performed: Direct laryngoscopy Direct pharyngoscopy with biopsy right tonsil mass Rigid esophagoscopy Flexible bronchoscopy Anesthesia: COLINA Surgeon: Jfe Moser Estimated Blood Loss (ml): 2 Pathology: other (Right tonsil) Condition: stable Disposition: PACU Indications for Procedure: This is a 72-year-old white male who noticed approximately 3 months ago sore throat on the right side with discomfort with swallowing and occasional blood which he coughs up. He was noted to have a right tonsillar lesion on physical exam in the office. CT has been read as negative with no lymphadenopathy noted Operative Findings: Right tonsillar mass approximately 3.5 cm in height by 3 cm in width and 2 cm in depth this is indurated but mobile from the underlying deep tissues. Surface is ulcerated but also fungating Description of Procedure: The patient was brought in the operative suite and placed in a supine position. Patient underwent induction of general anesthesia with oral endotracheal intubation without difficulty. The patient was prepped and draped in usual aseptic fashion. Tooth guard was placed and direct laryngoscopy was performed with systematic evaluation of the base of tongue vallecula both piriform sinuses post cricoid area and endolarynx. With the laryngoscope in position to visualize the vocal cords the laryngoscope was placed in suspension and the flexible bronchoscope was utilized through the laryngoscope to visualize the distal trachea primary and secondary bronchi with no abnormalities noted. The laryngoscope and bronchoscope were then withdrawn. Rigid esophagoscopy was then performed the level of 35 cm from the upper incisors with no abnormalities noted on advancement for removal. The tooth guard was then removed. The McIvor mouth gag was then placed and placed in suspension. This was able to visualize the right tonsil lesion where multiple biopsies were taken at the superior pole. The lesion was not felt to be amenable by simple tonsillectomy mainly due to the inferior aspect not completely well visualized. After biopsies were taken hemostasis was gained with suction cautery and hemostasis was noted to be excellent. The McIvor mouth gag was removed. The patient was allowed to emerge from general anesthesia having tolerated procedure well was extubated in the operating suite and transferred to postop recovery area in satisfactory condition.
[2022-03-28 14:09] VITALS: TEMP 98
[2022-03-28] MEDS ORDERED: DEXTROSE 50% SYRINGE 50 ML IVP ONE (14:25)
[2022-03-28 14:31] LABS: Glucose,Whole Blood 50 mg/dL (75-99)
[2022-03-28 14:38] LABS: Glucose,Whole Blood 159 mg/dL (75-99)
[2022-03-28 15:08] VITALS: RESP 18
[2022-03-28 15:21] VITALS: BP 115/78; PULSE 87
== END 2022-03-28 15:32 | disposition home or self-care (01) ==
LOC: OR 10:42
PROVIDERS: ATTEND Otolaryngology
DX: C09.9 Malignant neoplasm of tonsil, unspecified (principal)
CPT/HCPCS: 31525; 88305; 88342; J2250; J0690; J2405; J3010; J0330; J2704; J2001

== ENCOUNTER → 2022-04-25 | Outpatient (CLI) | payer MEDICARE ==
--- NOTE | 2022-04-25 15:00 | CT ---
EXAMINATION TYPE: CT chest w con DATE OF EXAM: 04/25/2022 COMPARISON: No previous CT scan is available for comparison HISTORY: SOB, hx of throat ca CT DLP: 783 mGycm Automated exposure control for dose reduction was used. TECHNIQUE: CT scan of the chest is performed with IV Contrast, patient injected with 80cc mL of Isovue 300. FINDINGS: LUNGS: Minimal atelectasis at the posterior aspect of the left lower lung lobe with linear atelectasi s in the left lung base. Otherwise the lungs are grossly clear, there is no concerning parenchymal ma ss or nodule identified. There is no pleural effusion or pneumothorax seen. The tracheobronchial t ree is patent. MEDIASTINUM: There are no greater than 1 cm hilar or mediastinal lymph nodes. No gross cardiomegaly. Coronary and arterial atherosclerotic calcifications. 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 Suspected chronic hematoma/fibrotic changes surrounding the ascending aorta, likely related to previous cardiac surgery. No pericardial effusion is seen. OTHER: Bulky liver. Slightly thickened gallbladder wall. Sternotomy wire sutures. IMPRESSION: Grossly unremarkable lungs with no definite lung nodule, suspicious lesion or acute abnormality. Sign ificant arterial stenoses and other incidental findings as described above.
== END | disposition home or self-care (01) ==
LOC: RADCTMAIN 10:06
PROVIDERS: ATTEND Otolaryngology
DX: C09.9 Malignant neoplasm of tonsil, unspecified (principal)
CPT/HCPCS: 82565; 84520; 71260; 36415; Q9967

== ENCOUNTER → 2022-05-04 | Outpatient (CLI) | payer MEDICARE ==
--- NOTE | 2022-05-09 06:32 | PE ---
EXAMINATION TYPE: PET CT fusion skull to thigh DATE OF EXAM: 05/04/2022 COMPARISON: CT chest April 25, 2022. CT neck March 20, 2022. HISTORY: Newly diagnosed throat cancer on biopsy April 04. TECHNIQUE: Following the intravenous administration of 8.25 mCi of F-18 FDG, whole body images are p erformed from the skull base to the midthigh. Images are reviewed on the computer in the coronal, ax ial, and sagittal planes. Reconstructed rotating images are created on independent workstation and r eviewed on the computer. A localization and attenuation correction CT is performed in conjunction w ith the PET scan. Dedicated PET/CT imaging of the neck is performed. Blood glucose level equals 129. SCAN: Initial Scan FINDINGS: SKULL BASE AND NECK: Asymmetric prominent soft tissue with abnormal hypermetabolic uptake posterior to the right posterior tongue measuring 1.7 x 1.4 cm axial image 37, max SUV is 17.37. Craniocaudal l ength of abnormal hypermetabolic uptake roughly 2.7 cm. Streak artifact from cavitary lesions and crowd controller wns in the teeth makes evaluation just superior to this level suboptimal. Nonspecific abnormal mild h ypermetabolic uptake anterior left and oropharynx with poor visualization on CT at this level likely nonneoplastic. No definitive abnormal enlarged hypermetabolic neck lymph nodes. CHEST, MEDIASTINUM, AND HILAR REGION: No areas of abnormal hypermetabolic uptake. ABDOMEN AND PELVIS: Normal excretion is present. Mild nonspecific bowel uptake. No definitive areas o f abnormal hypermetabolic uptake. OSSEOUS STRUCTURES: No definitive areas of abnormal hypermetabolic uptake OTHER CT: Severe calcified plaque right greater than left carotid bulbs. 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 Mild cardiomegaly. Calcification at level of the mitral and aortic valves. Cortical thinning in both kidneys. Metallic artifact from bilateral hip arthroplasty causes streak artifact limiting evaluation of pelvi c structures. IMPRESSION: Primary neoplasm posterior right oropharynx well seen. No metastatic disease identified o r additional suspicious hypermetabolic lymph nodes.
== END | disposition home or self-care (01) ==
LOC: RADPETMAIN 10:40
PROVIDERS: ATTEND Radiology Radiation Oncology
DX: C09.0 Malignant neoplasm of tonsillar fossa (principal)
CPT/HCPCS: 78815; A9552

== ENCOUNTER 2022-07-14 08:42 | Inpatient (IN) | payer MEDICARE ==
[2022-07-14] MEDS ORDERED: SODIUM CHLORIDE 0.9% 1,000 ML IV STA ×2 (08:59)
--- NOTE | 2022-07-14 09:02 | ED ---
General Adult HPI - General Chief complaint: Weakness Stated complaint: weakness Time Seen by Provider: 07/14/22 08:56 Source: patient, EMS, RN notes reviewed Mode of arrival: EMS Limitations: no limitations - History of Present Illness Initial comments: Patient is a pleasant 72-year-old male presenting to the emergency Department with general weakness. Symptoms have been present a couple of weeks. Patient recently finished his current round of chemotherapy and radiation for throat cancer. This will be reassessed shortly. Patient has decreased appetite and oral intake. Patient has occasional nausea and vomiting. Patient states almost daily she has syncopal episode with standing, especially if he does it too fast. No injury. - Related Data Home Medications Medication Instructions Recorded Confirmed Insulin Glargine [Lantus Vial] 40 unit SQ BID 02/20/19 06/24/22 metFORMIN HCL [Glucophage] 500 mg PO BID 02/20/19 06/24/22 INSULIN LISPRO (humaLOG) [humaLOG] 25 units SQ BID 03/26/22 06/24/22 Aspirin [[place] Aspirin EC] 81 mg PO DAILY 06/24/22 06/24/22 Atorvastatin Calcium [Lipitor] 80 mg PO DAILY 06/24/22 06/24/22 Cholecalciferol [Vitamin D3 (25 50 mcg PO DAILY 06/24/22 06/24/22 Mcg = 1000 Iu)] Dulaglutide [Trulicity] 1.5 mg SQ MO 06/24/22 06/24/22 HYDROcodone/APAP 5-325MG [[place] 1 tab PO Q4HR 06/24/22 06/24/22 5-325] Ondansetron [Zofran] 4 mg PO Q8HR PRN 06/24/22 06/24/22 Pantoprazole Sodium [Protonix] 40 mg PO HS 06/24/22 06/24/22 traMADol HCL 50 mg PO TID PRN 06/24/22 06/24/22 Previous Rx's Medication Instructions Recorded Acetaminophen Tab [Tylenol] 650 mg PO Q6HR PRN tab 06/29/22 Fluconazole [Diflucan] 100 mg PO DAILY 14 Days #14 tablet 06/29/22 Petrolatum, White [Aquaphor] 1 applic TOPICAL QID each 06/29/22 Triamcinolone 0.1% Ointment 1 applic TOPICAL QID each 06/29/22 [Kenalog 0.1% Ointment] Allergies Allergy/AdvReac Type Severity Reaction Status Date / Time Penicillins Allergy Rash/Hives/ Verified 07/14/22 08:47 SOB Review of Systems ROS Statement: Those systems with pertinent positive or pertinent negative responses have been documented in the HPI. ROS Other: All systems not noted in ROS Statement are negative. Constitutional: Denies: fever Eyes: Denies: eye pain ENT: Denies: ear pain Respiratory: Denies: cough Cardiovascular: Denies: chest pain Endocrine: Reports: fatigue Gastrointestinal: Reports: nausea (Not at this time), vomiting. Denies: abdominal pain Genitourinary: Denies: dysuria Musculoskeletal: Denies: back pain Skin: Denies: rash Neurological: Reports: as per HPI. Denies: headache, confusion Past Medical History Past Medical History: Cancer, Diabetes Mellitus, Hyperlipidemia, Osteoarthritis (OA), Pneumonia, Skin Disorder, Syncope Additional Past Medical History / Comment(s): see Dr Maravilla H&P, hx skin cancer, dizziness-using a walker, has had a few falls recently History of Any Multi-Drug Resistant Organisms: None Reported Past Surgical History: Cardiac Valve Replacement, Coronary Bypass/CABG, Heart Catheterization, Joint Replacement, Orthopedic Surgery Additional Past Surgical History / Comment(s): kary hip replacements(multiple, ea ch hip)+surgeries for post op infections, CABG and valve replacement, removal of skin cancer, Past Anesthesia/Blood Transfusion Reactions: No Reported Reaction Additional Past Anesthesia/Blood Transfusion Reaction / Comment(s): Pt has received blood transfusion without reaction. Past Psychological History: No Psychological Hx Reported Smoking Status: Former smoker Past Alcohol Use History: Rare Past Drug Use History: None Reported - Past Family History Mother Family Medical History: Deep Vein Thrombosis (DVT) Brother(s) Family Medical History: Diabetes Mellitus, Hyperlipidemia, Hypertension Son(s) Family Medical History: No Reported History General Exam Limitations: no limitations General appearance: alert, in no apparent distress Head exam: Present: atraumatic, normocephalic Eye exam: Present: normal appearance, PERRL, EOMI ENT exam: Present: normal oropharynx Neck exam: Present: normal inspection. Absent: tenderness Respiratory exam: Present: normal lung sounds bilaterally Cardiovascular Exam: Present: regular rate, normal rhythm GI/Abdominal exam: Present: soft. Absent: tenderness Extremities exam: Present: normal inspection Neurological exam: Present: alert. Absent: motor sensory deficit Psychiatric exam: Present: normal affect, normal mood Skin exam: Present: normal color Course Vital Signs 07/14/22 08:45 Temperature 98.3 F Pulse Rate 74 Respiratory 18 Rate Blood Pressure 86/47 O2 Sat by Pulse 96 Oximetry EKG Findings - EKG Comments: EKG Findings:: Sinus rhythm rate 72. FL 177. QRS 11. QT 405. QTC 428. Indeterminate axis. Incomplete right bundle-branch block. Septal Q waves. Nonspecific ST-T. Medical Decision Making - Medical Decision Making Patient reevaluated and resting comfortably in bed. Blood pressure 100 systolic. Accu-Chek in the 40s. Patient will be given half amp of D50 as well as encourage oral intake. Patient has been having difficulty with oral intake and receptive to Zofran. Patient and family updated on results and plan. Dr. Victor has been paged for admission, covering for Dr. Capps, who admits for Dr. Morataya. - Lab Data Result diagrams: 07/14/22 09:03 07/14/22 09:03 Lab Results 07/14/22 07/14/22 07/14/22 Range/Units 09:03 09:03 09:03 WBC 3.5 L (3.8-10.6) k/uL RBC 3.34 L (4.30-5.90) m/uL Hgb 11.1 L (13.0-17.5) gm/dL Hct 33.3 L (39.0-53.0) % MCV 99.8 (80.0-100.0) fL MCH 33.3 (25.0-35.0) pg MCHC 33.3 (31.0-37.0) g/dL RDW 17.8 H (11.5-15.5) % Plt Count 132 L (150-450) k/uL MPV 7.5 Neutrophils % 70 % Lymphocytes % 21 % Monocytes % 6 % Eosinophils % 1 % Basophils % 0 % Neutrophils # 2.5 (1.3-7.7) k/uL Lymphocytes # 0.8 L (1.0-4.8) k/uL Monocytes # 0.2 (0-1.0) k/uL Eosinophils # 0.0 (0-0.7) k/uL Basophils # 0.0 (0-0.2) k/uL Hypochromasia Slight Poikilocytosis Moderate Anisocytosis Slight Macrocytosis Slight PT 10.5 (9.0-12.0) sec INR 1.0 (<1.2) APTT 17.9 L (22.0-30.0) sec Sodium 141 (137-145) mmol/L Potassium 4.0 (3.5-5.1) mmol/L Chloride 102 (98-107) mmol/L Carbon Dioxide 32 H (22-30) mmol/L Anion Gap 7 mmol/L BUN 13 (9-20) mg/dL Creatinine 1.19 (0.66-1.25) mg/dL Est GFR (CKD-EPI)AfAm 69 (>60 ml/min/1.73 sqM) Est GFR (CKD-EPI)NonAf 60 (>60 ml/min/1.73 sqM) Glucose 55 L (74-99) mg/dL POC Glucose (mg/dL) (70-110) mg/dL POC Glu Transit Clerk ID Plasma Lactic Acid Philip (0.7-2.0) mmol/L Calcium 8.4 (8.4-10.2) mg/dL Phosphorus 3.5 (2.5-4.5) mg/dL Magnesium 1.2 L (1.6-2.3) mg/dL Total Bilirubin 3.1 H (0.2-1.3) mg/dL AST 19 (17-59) U/L ALT 12 (4-49) U/L Alkaline Phosphatase 82 (38-126) U/L Total Protein 5.8 L (6.3-8.2) g/dL Albumin 3.6 (3.5-5.0) g/dL TSH 1.170 (0.465-4.680) mIU/L 07/14/22 07/14/22 Range/Units 09:03 09:54 WBC (3.8-10.6) k/uL RBC (4.30-5.90) m/uL Hgb (13.0-17.5) gm/dL Hct (39.0-53.0) % MCV (80.0-100.0) fL MCH (25.0-35.0) pg MCHC (31.0-37.0) g/dL RDW (11.5-15.5) % Plt Count (150-450) k/uL MPV Neutrophils % % Lymphocytes % % Monocytes % % Eosinophils % % Basophils % % Neutrophils # (1.3-7.7) k/uL Lymphocytes # (1.0-4.8) k/uL Monocytes # (0-1.0) k/uL Eosinophils # (0-0.7) k/uL Basophils # (0-0.2) k/uL Hypochromasia Poikilocytosis Anisocytosis Macrocytosis PT (9.0-12.0) sec INR (<1.2) APTT (22.0-30.0) sec Sodium (137-145) mmol/L Potassium (3.5-5.1) mmol/L Chloride (98-107) mmol/L Carbon Dioxide (22-30) mmol/L Anion Gap mmol/L BUN (9-20) mg/dL Creatinine (0.66-1.25) mg/dL Est GFR (CKD-EPI)AfAm (>60 ml/min/1.73 sqM) Est GFR (CKD-EPI)NonAf (>60 ml/min/1.73 sqM) Glucose (74-99) mg/dL POC Glucose (mg/dL) 41 L (70-110) mg/dL POC Glu Transit Clerk ID Luke Ian Plasma Lactic Acid Philip 1.6 (0.7-2.0) mmol/L Calcium (8.4-10.2) mg/dL Phosphorus (2.5-4.5) mg/dL Magnesium (1.6-2.3) mg/dL Total Bilirubin (0.2-1.3) mg/dL AST (17-59) U/L ALT (4-49) U/L Alkaline Phosphatase (38-126) U/L Total Protein (6.3-8.2) g/dL Albumin (3.5-5.0) g/dL TSH (0.465-4.680) mIU/L - Radiology Data Radiology results: image reviewed (Chest x-ray shows no acute process) Disposition Clinical Impression: Hypotension, Dehydration, Hypomagnesemia, Hypoglycemia Disposition: ADMITTED IP TO THIS HOSP Is patient prescribed a controlled substance at d/c from ED?: No Referrals: Gladys,Jonathan, DO [Primary Care Provider] - 1-2 days Time of Disposition: 10:02
[2022-07-14 09:14] LABS: Anisocytosis Slight; Basophils % (A) 0 %; Eosinophils % (A) 1 %; HCT 33.3 % (39.0-53.0); HGB 11.1 gm/dL (13.0-17.5); Hypochromasia Slight; Lymphocytes # (A) 0.8 k/uL (1.0-4.8); Lymphocytes % (A) 21 %; MCH 33.3 pg (25.0-35.0); MCHC 33.3 g/dL (31.0-37.0); MCV 99.8 fL (80.0-100.0); Macrocytosis Slight; Mean Platelet Volume 7.5; Monocytes # (A) 0.2 k/uL (0-1.0); Monocytes % (A) 6 %; Neutrophils # (A) 2.5 k/uL (1.3-7.7); Neutrophils % (A) 70 %; Platelet Count 132 k/uL (150-450); Poikilocytosis Moderate; RBC 3.34 m/uL (4.30-5.90); RDW 17.8 % (11.5-15.5); WBC 3.5 k/uL (3.8-10.6)
--- NOTE | 2022-07-14 09:17 | XR ---
EXAMINATION TYPE: XR chest 2V DATE OF EXAM: 07/14/2022 9:12 AM COMPARISON: Chest radiographs from 06/26/2022 TECHNIQUE: XR chest 2V Frontal and lateral views of the chest. CLINICAL INDICATION:Male, 72 years old with history of Weakness; FINDINGS: Lungs/Pleura: There is no evidence of pleural effusion, focal consolidation, or pneumothorax. Pulmonary vascularity: Unremarkable. Heart/mediastinum: Cardiomediastinal silhouette is enlarged and stable. Post aortic valve repair rui nges. Musculoskeletal: Degenerative changes of the shoulder joints. Midline sternotomy wires are noted. IMPRESSION: No acute cardiopulmonary disease/process.
[2022-07-14 09:28] LABS: Albumin 3.6 g/dL (3.5-5.0); Calcium 8.4 mg/dL (8.4-10.2); Magnesium 1.2 mg/dL (1.6-2.3); Phosphorus 3.5 mg/dL (2.5-4.5); Total Bilirubin 3.1 mg/dL (0.2-1.3); Total Protein 5.8 g/dL (6.3-8.2)
[2022-07-14 09:33] LABS: Prothrombin Time 10.5 sec (9.0-12.0)
[2022-07-14] MEDS ORDERED: MAGNESIUM OXIDE 400 MG TAB PO STA (09:42)
[2022-07-14 09:54] LABS: Partial Thromboplastin Time 17.9 sec (22.0-30.0)
[2022-07-14 09:55] LABS: Glucose,Whole Blood 41 mg/dL (70-110)
[2022-07-14] MEDS ORDERED: DEXTROSE 50% SYRINGE 50 ML IVP STA (10:00)
[2022-07-14] MEDS ORDERED: DEXTROSE 5%-0.45% NACL 1,000 ML IV ONE (10:00)
[2022-07-14] MEDS ORDERED: NALOXONE 0.4 MG/ML 1 ML VIAL IV PRN (10:03)
[2022-07-14] MEDS ORDERED: ONDANSETRON 4 MG/2 ML VIAL IVP PRN (10:03)
[2022-07-14] MEDS ORDERED: ONDANSETRON 4 MG/2 ML VIAL IVP STA (10:04)
[2022-07-14] MEDS: MAGNESIUM SULFATE-D5W PMX 1 GM in DEXTROSE/WATER 1 100ML.BAG IVPB ONE ×2 (10:12→13:57)
[2022-07-14] MEDS: PANTOPRAZOLE 40 MG/10 ML VIAL IV SCH (10:55)
[2022-07-14 11:00] LABS: Glucose,Whole Blood 139 mg/dL (70-110)
[2022-07-14 13:24] LABS: Appearance,Urine Clear (Clear); Bilirubin,Urine Negative (Negative); Blood,Urine Negative (Negative); Color,Urine Yellow; Glucose,Urine (UA) Negative (Negative); Ketones,Urine Negative (Negative); Leukocyte Esterase,Urine Negative (Negative); Nitrite,Urine Negative (Negative); Protein,Urine Negative (Negative); Specific Gravity,Urine 1.012 (1.001-1.035)
[2022-07-14 13:54] LABS: Glucose,Whole Blood 85 mg/dL (70-110)
[2022-07-14] MEDS: MAGNESIUM SULFATE-D5W PMX 1 GM in DEXTROSE/WATER 1 100ML.BAG IVPB SCH ×2 (15:26→17:32)
--- NOTE | 2022-07-14 15:54 | P.CONS ---
History of Present Illness - Reason for Consult Consult date: 07/14/22 Throat cancer Requesting physician: Viviana Victor - Chief Complaint Weakness - History of Present Illness Mr. Morales is a very pleasant 72 yo male with history of right tonsilar squamous cell carcinoma, who recently completed concurrent chemotherapy with RT with carbo/taxol, who is here for generalized weakness, decreased oral intake , odynophagia, decreased appetite, and occasional nausea and vomiting. Labs with improving chemotherapy induced pancytopenia and stable Cr at 1.1. He was admitted for dehydration and control of his symptoms. Oncologic history: Patient presented with a lump in the throat, 3-4 months, seen by ENT, CT of the neck March 2022 showed no suspicious finding but, a subtle mass, in retrospect, was seen in the right tonsil. 03/28/22 had fiber optic exam revealing a 3.5 x 3 x 2 cm mass involving the right tonsil, biopsy positive for invasive squamous cell carcinoma, P 16 positive. He was evaluated by Dr. Ramos. The mass was extending to the soft palate near the uvula with some base of the tongue invasion. at least a T3 tumor. Plan was for neoadjuvant treatment and reevaluation for possible surgery. Completed concurrent chemoRT with carbo/taxol in mid 06/2022, last chemo given on 06/18/22. He was admitted in mid 06/2022 for feeling more run down, with some falls including head trauma, as well as diarrhea, SOB, and some nausea. Had RAFAEL with creatinine 1.58 from baseline 1, lactic acid was 2.3. Hydrated and discharged. Comes back now with generalized weakness and dehydration. patient is a type II diabetic, he is medicated for hyperlipidemia, he has had aortic valve replacement, he also has a history of tinnitus. Past Medical History Past Medical History: Cancer, Diabetes Mellitus, Hyperlipidemia, Osteoarthritis (OA), Pneumonia, Skin Disorder, Syncope Additional Past Medical History / Comment(s): see Dr Renita Sifuentes&[place], hx skin cancer, dizziness-using a walker, has had a few falls recently History of Any Multi-Drug Resistant Organisms: None Reported Past Surgical History: Cardiac Valve Replacement, Coronary Bypass/CABG, Heart Catheterization, Joint Replacement, Orthopedic Surgery Additional Past Surgical History / Comment(s): kary hip replacements(multiple, each hip)+surgeries for post op infections, CABG and valve replacement, removal of skin cancer, Past Anesthesia/Blood Transfusion Reactions: No Reported Reaction Additional Past Anesthesia/Blood Transfusion Reaction / Comm: Pt has received blood transfusion without reaction. Past Psychological History: No Psychological Hx Reported Smoking Status: Former smoker Past Alcohol Use History: Rare Past Drug Use History: None Reported - Past Family History Mother Family Medical History: Deep Vein Thrombosis (DVT) Brother(s) Family Medical History: Diabetes Mellitus, Hyperlipidemia, Hypertension Son(s) Family Medical History: No Reported History Medications and Allergies Home Medications Medication Instructions Recorded Confirmed Type Insulin Glargine [Lantus Vial] 40 unit SQ BID 02/20/19 07/14/22 History metFORMIN HCL [Glucophage] 500 mg PO BID 02/20/19 07/14/22 History INSULIN LISPRO (humaLOG) [humaLOG] 25 units SQ BID 03/26/22 07/14/22 History Aspirin [[place] Aspirin EC] 81 mg PO DAILY 06/24/22 07/14/22 History Atorvastatin Calcium [Lipitor] 80 mg PO DAILY 06/24/22 07/14/22 History Cholecalciferol [Vitamin D3 (25 50 mcg PO DAILY 06/24/22 07/14/22 History Mcg = 1000 Iu)] Dulaglutide [Trulicity] 1.5 mg SQ MO 06/24/22 07/14/22 History HYDROcodone/APAP 5-325MG [[place] 1 tab PO Q4HR 06/24/22 07/14/22 History 5-325] Ondansetron [Zofran] 4 mg PO Q8HR PRN 06/24/22 07/14/22 History Pantoprazole Sodium [Protonix] 40 mg PO HS 06/24/22 07/14/22 History traMADol HCL 50 mg PO TID PRN 06/24/22 07/14/22 History Acetaminophen Tab [Tylenol] 650 mg PO Q6HR PRN tab 06/29/22 07/14/22 Rx Petrolatum, White [Aquaphor] 1 applic TOPICAL QID each 06/29/22 07/14/22 Rx Triamcinolone 0.1% Ointment 1 applic TOPICAL QID each 06/29/22 07/14/22 Rx [Kenalog 0.1% Ointment] Allergies Allergy/AdvReac Type Severity Reaction Status Date / Time Penicillins Allergy Rash/Hives/ Verified 07/14/22 13:57 SOB Physical Exam Vitals: Vital Signs Temp Pulse Resp BP Pulse Ox 07/14/22 12:12 70 16 83/50 97 07/14/22 10:30 73 18 108/53 95 07/14/22 10:00 70 18 100/69 94 L 07/14/22 09:30 73 21 102/64 95 07/14/22 09:00 74 14 72/48 98 07/14/22 08:51 73 14 86/47 97 07/14/22 08:45 98.3 F 74 18 86/47 96 Intake and Output 07/13/22 07/14/22 07/14/22 22:59 06:59 14:59 Other: Weight 108.862 kg Gen.: NAD HEENT: Mucosa moist, no scleral icterus, slight erythema in the oropharynx however difficult to examine thoroughly. Neck: Supple Lungs: Clear to auscultation Heart: Regular rate Abdomen: Soft Extremities: No lower extremity edema Neuro: Alert and oriented 3 Psych: Appropriate affect Skin: No jaundice Results CBC & Chem 7: 07/14/22 09:03 07/14/22 09:03 Labs: Abnormal Lab Results - Last 24 Hours (Table) 07/14/22 07/14/22 07/14/22 Range/Units 09:03 09:03 09:03 WBC 3.5 L (3.8-10.6) k/uL RBC 3.34 L (4.30-5.90) m/uL Hgb 11.1 L (13.0-17.5) gm/dL Hct 33.3 L (39.0-53.0) % RDW 17.8 H (11.5-15.5) % Plt Count 132 L (150-450) k/uL Lymphocytes # 0.8 L (1.0-4.8) k/uL APTT 17.9 L (22.0-30.0) sec Carbon Dioxide 32 H (22-30) mmol/L Glucose 55 L (74-99) mg/dL POC Glucose (mg/dL) (70-110) mg/dL Magnesium 1.2 L (1.6-2.3) mg/dL Total Bilirubin 3.1 H (0.2-1.3) mg/dL Total Protein 5.8 L (6.3-8.2) g/dL 07/14/22 07/14/22 Range/Units 09:54 10:58 WBC (3.8-10.6) k/uL RBC (4.30-5.90) m/uL Hgb (13.0-17.5) gm/dL Hct (39.0-53.0) % RDW (11.5-15.5) % Plt Count (150-450) k/uL Lymphocytes # (1.0-4.8) k/uL APTT (22.0-30.0) sec Carbon Dioxide (22-30) mmol/L Glucose (74-99) mg/dL POC Glucose (mg/dL) 41 L 139 H (70-110) mg/dL Magnesium (1.6-2.3) mg/dL Total Bilirubin (0.2-1.3) mg/dL Total Protein (6.3-8.2) g/dL Chest x-ray: report reviewed Assessment and Plan Assessment: 1. Dehydration 2. Right tonsillar squamous cell carcinoma 3. Chemotherapy induced pancytopenia 4. Generalized weakness and falls 5. Nausea and vomiting due to chemotherapy Plan: Mr. Morales is a very pleasant 72-year-old male patient of Dr. Alexander, who recently completed chemotherapy with concurrent RT, carbo/taxol, last chemo on 06/18/22, who is here for generalized weakness due to dehydration and decreased oral intake. Having odynophagia which is likely preventing him from adequate hydration at home and oral intake. Says this is starting to slowly feel better, however he continues to struggle with swallowing. Agree with hydration. Pancytopenia is due to his recent chemoRT and is improving. Not neutropenic. Supportive antiemetics and supportive care. I suspect his odynophagia will slowly improve over the next couple weeks. He may need weekly hydration outpatient however until he feels better and is able to hydrate orally. He will need to follow up in clinic as scheduled later this month to reassess his throat cancer.
[2022-07-14] MEDS: DEXTROSE 5%-0.9% NACL 1,000 ML IV SCH (16:37)
[2022-07-14 17:54] LABS: Glucose,Whole Blood 115 mg/dL (70-110)
[2022-07-14 20:22] LABS: Glucose,Whole Blood 155 mg/dL (70-110)
[2022-07-14] MEDS: MAG HYDROX/AL HYDROX/SIMETH 30 ML, LIDOCAINE VISCOUS 2% 30 ML, diphenhydrAMINE ELIXIR 7... PO SCH ×8 (20:27→20:35)
[2022-07-14] MEDS ORDERED: ACETAMINOPHEN TAB 325 MG TAB PO PRN (22:00)
[2022-07-15] MEDS: DEXTROSE 5%-0.9% NACL 1,000 ML IV SCH ×3 (00:58→19:50)
--- NOTE | 2022-07-15 01:48 | P.HPIM ---
History of Present Illness H&P Date: 07/14/22 Chief Complaint: Generalized weakness and falls. Patient is a 72-year-old male with a known history of right tonsillar squamous cell carcinoma and recent chemotherapy, hyperlipidemia, diabetes type 2 insulin- dependent, osteoarthritis, coronary artery disease history of CABG, history of cardiac valve replacement and prior history of smoking presents to ER with complaints of generalized weakness and decreased oral intake. Difficulty swallowing and nausea and occasional vomiting. Patient denied any complaints of fever or chills. No chest pain or shortness of. No headache or dizziness lightheadedness. No dysuria or hematuria. Patient has been having symptoms for the past couple of weeks. Patient has been having frequent falls and syncopal episodes at home. Denies any head injury. Chest x-ray on admission showed no acute cardiopulmonary process/disease. EKG showed sinus rhythm Laboratory pressure WBC 3.4 hemoglobin 11.1 and platelets 132 lymphocytes 0.8 Sodium 141 potassium 4.0 chloride 102 bicarb is 32 BUN 13 and creatinine 1.19 and blood sugar is 55 magnesium 1.2 Urinalysis is negative for infection. Review of Systems Constitutional: Patient denies any fever or chills . Positive generalized weakness. Abdomen: Patient does have nausea and vomiting. No abdominal pain. No diarrhea. Cardiovascular: Patient denies any chest pain or short of breath no palpitations. Respiratory: patient denied any cough is from production. No shortness of breath Neurologic: Patient denied any numbness or tingling headache. Musculoskeletal: Patient denies any complaints of joint swelling or deformity. Skin: Negative Psychiatric: Negative Endocrine: No heat or cold intolerance. No recent weight gain. Genitourinary: No dysuria or hematuria. All other 14 point ROS negative except the above Past Medical History Past Medical History: Cancer, Diabetes Mellitus, Hyperlipidemia, Osteoarthritis (OA), Pneumonia, Skin Disorder, Syncope Additional Past Medical History / Comment(s): see Dr Maravilla H&P, hx skin cancer, dizziness-using a walker, has had a few falls recently History of Any Multi-Drug Resistant Organisms: None Reported Past Surgical History: Cardiac Valve Replacement, Coronary Bypass/CABG, Heart Catheterization, Joint Replacement, Orthopedic Surgery Additional Past Surgical History / Comment(s): kary hip replacements(multiple, each hip)+surgeries for post op infections, CABG and valve replacement, removal of skin cancer, Past Anesthesia/Blood Transfusion Reactions: No Reported Reaction Additional Past Anesthesia/Blood Transfusion Reaction / Comment(s): Pt has received blood transfusion without reaction. Past Psychological History: No Psychological Hx Reported Smoking Status: Former smoker Past Alcohol Use History: Rare Past Drug Use History: None Reported - Past Family History Mother Family Medical History: Deep Vein Thrombosis (DVT) Brother(s) Family Medical History: Diabetes Mellitus, Hyperlipidemia, Hypertension Son(s) Family Medical History: No Reported History Medications and Allergies Home Medications Medication Instructions Recorded Confirmed Type Insulin Glargine [Lantus Vial] 40 unit SQ BID 02/20/19 07/14/22 History metFORMIN HCL [Glucophage] 500 mg PO BID 02/20/19 07/14/22 History INSULIN LISPRO (humaLOG) [humaLOG] 25 units SQ BID 03/26/22 07/14/22 History Aspirin [[place] Aspirin EC] 81 mg PO DAILY 06/24/22 07/14/22 History Atorvastatin Calcium [Lipitor] 80 mg PO DAILY 06/24/22 07/14/22 History Cholecalciferol [Vitamin D3 (25 50 mcg PO DAILY 06/24/22 07/14/22 History Mcg = 1000 Iu)] Dulaglutide [Trulicity] 1.5 mg SQ MO 06/24/22 07/14/22 History HYDROcodone/APAP 5-325MG [[place] 1 tab PO Q4HR 06/24/22 07/14/22 History 5-325] Ondansetron [Zofran] 4 mg PO Q8HR PRN 06/24/22 07/14/22 History Pantoprazole Sodium [Protonix] 40 mg PO HS 06/24/22 07/14/22 History traMADol HCL 50 mg PO TID PRN 06/24/22 07/14/22 History Acetaminophen Tab [Tylenol] 650 mg PO Q6HR PRN tab 06/29/22 07/14/22 Rx Petrolatum, White [Aquaphor] 1 applic TOPICAL QID each 06/29/22 07/14/22 Rx Triamcinolone 0.1% Ointment 1 applic TOPICAL QID each 06/29/22 07/14/22 Rx [Kenalog 0.1% Ointment] Allergies Allergy/AdvReac Type Severity Reaction Status Date / Time Penicillins Allergy Rash/Hives/ Verified 07/14/22 13:57 SOB Physical Exam Vitals: Vital Signs Temp Pulse Resp BP Pulse Ox 07/14/22 12:12 70 16 83/50 97 07/14/22 10:30 73 18 108/53 95 07/14/22 10:00 70 18 100/69 94 L 07/14/22 09:30 73 21 102/64 95 07/14/22 09:00 74 14 72/48 98 07/14/22 08:51 73 14 86/47 97 07/14/22 08:45 98.3 F 74 18 86/47 96 Intake and Output 07/13/22 07/14/22 07/14/22 22:59 06:59 14:59 Other: Weight 108.862 kg PHYSICAL EXAMINATION: Patient is lying in the bed comfortably, no acute distress, awake alert and oriented.. Patient is weak and lethargic. HEENT: Normocephalic. Neck is supple. Pupils reactive. Nostrils clear. Oral cavity is moist. Neck reveals no JVD, carotid bruits, or thyromegaly. CHEST EXAMINATION: Trachea is central. Symmetrical expansion. Lung stein clear to auscultation and percussion. CARDIAC: Normal S1, S2 with no gallops. No murmurs ABDOMEN: Soft. Bowel sounds present. Nontender. No organomegaly. No abdominal bruits. Extremities: reveal no edema. No clubbing or cyanosis Neurologically awake, alert, oriented x3 with well-coordinated movements. No focal deficits noted Skin: No rash or skin lesions. Psychiatric: Coperative. Nonsuicidal, Musculoskeletal: No joint swelling or deformity. Normal range of motion. Results CBC & Chem 7: 07/15/22 07:04 07/15/22 07:04 Labs: Abnormal Lab Results - Last 24 Hours (Table) 07/14/22 07/14/22 07/14/22 Range/Units 09:03 09:03 09:03 WBC 3.5 L (3.8-10.6) k/uL RBC 3.34 L (4.30-5.90) m/uL Hgb 11.1 L (13.0-17.5) gm/dL Hct 33.3 L (39.0-53.0) % RDW 17.8 H (11.5-15.5) % Plt Count 132 L (150-450) k/uL Lymphocytes # 0.8 L (1.0-4.8) k/uL APTT 17.9 L (22.0-30.0) sec Carbon Dioxide 32 H (22-30) mmol/L Glucose 55 L (74-99) mg/dL POC Glucose (mg/dL) (70-110) mg/dL Magnesium 1.2 L (1.6-2.3) mg/dL Total Bilirubin 3.1 H (0.2-1.3) mg/dL Total Protein 5.8 L (6.3-8.2) g/dL 07/14/22 07/14/22 Range/Units 09:54 10:58 WBC (3.8-10.6) k/uL RBC (4.30-5.90) m/uL Hgb (13.0-17.5) gm/dL Hct (39.0-53.0) % RDW (11.5-15.5) % Plt Count (150-450) k/uL Lymphocytes # (1.0-4.8) k/uL APTT (22.0-30.0) sec Carbon Dioxide (22-30) mmol/L Glucose (74-99) mg/dL POC Glucose (mg/dL) 41 L 139 H (70-110) mg/dL Magnesium (1.6-2.3) mg/dL Total Bilirubin (0.2-1.3) mg/dL Total Protein (6.3-8.2) g/dL Thrombosis Risk Factor Assmnt - DVT/VTE Prophylaxis DVT/VTE Prophylaxis: Pharmacologic Prophylaxis ordered Assessment and Plan Assessment: Generalized weakness and frequent falls due to poor oral intake, dehydration and volume depletion. Right tonsillar squamous cell carcinoma with recent chemotherapy Chemotherapy-induced pancytopenia, Hypomagnesemia Diabetes type 2 insulin-dependent Hyperlipidemia History of skin cancer Coronary artery history of CABG and cardiac valve replacement Prior history of smoking DVT prophylaxis with Lovenox subcu Plan: Patient will be continued on IV hydration with D5 normal saline and symptomatic management for nausea and vomiting. Controlled blood sugars with insulin regimen at this dose. Replace electrolytes and follow-up CBC closely. Transfuse if hemoglobin is less than 7 or platelets less than 10. Oncology service was consulted for evaluation. Prognosis is guarded. Continue to follow closely. Time with Patient: Greater than 30
[2022-07-15 07:11] LABS: Glucose,Whole Blood 166 mg/dL (70-110)
[2022-07-15] MEDS: CHOLECALCIFEROL 25 MCG (1000 IU) TABLET PO SCH (08:50)
[2022-07-15] MEDS: ENOXAPARIN 40 MG/0.4 ML SYRINGE SQ SCH (08:50)
[2022-07-15] MEDS: ASPIRIN 81 MG PO SCH (08:50)
[2022-07-15] MEDS: ATORVASTATIN 80 MG TAB PO SCH (08:50)
[2022-07-15] MEDS: PANTOPRAZOLE 40 MG/10 ML VIAL IV SCH (08:50)
[2022-07-15] MEDS: MAG HYDROX/AL HYDROX/SIMETH 30 ML, LIDOCAINE VISCOUS 2% 30 ML, diphenhydrAMINE ELIXIR 7... PO SCH ×12 (08:52→20:52)
[2022-07-15 11:35] LABS: Glucose,Whole Blood 208 mg/dL (70-110)
[2022-07-15 11:48] LABS: African American GFR (CKD) 67.3 (60.0-200.0); Albumin/Globulin Ratio 1.89 (1.60-3.17); BUN/Creat Ratio 7.38 Ratio (12.00-20.00); Basophils # (A) 0 X 10*3/uL (0.00-0.10); Basophils % (A) 0 %; Calcium 7.9 mg/dL (8.7-10.3); Carbon Dioxide 29.4 mmol/L (20.0-27.5); Eosinophils # (A) 0.03 X 10*3/uL (0.04-0.35); Eosinophils % (A) 1.3 %; Globulin 1.6 g/dL (1.6-3.3); HCT 24.5 % (39.6-50.0); Immature Grans, Automated 0 %; Lymphocytes # (A) 0.54 X 10*3/uL (0.90-5.00); Lymphocytes % (A) 23.7 %; MCH 33.3 pg (27.0-32.0); MCHC 32.7 g/dL (32.0-37.0); MCV 102.1 fL (80.0-97.0); Magnesium 1.8 mg/dL (1.5-2.4); Mean Platelet Volume 9.4 fL (9.5-12.2); Monocytes # (A) 0.28 X 10*3/uL (0.20-1.00); Monocytes % (A) 12.3 %; NRBC Per 100 WBC 0 /100 WBCS (0.0-0.0); Neutrophils # (A) 1.43 X 10*3/uL (1.80-7.70); Neutrophils % (A) 62.7 %; Platelet Count 98 X 10*3/uL (140-440); Potassium 4.3 mmol/L (3.5-5.5); RDW 17.7 % (11.5-14.5); Total Bilirubin 1.8 mg/dL (0.30-1.20); Total Protein 4.6 g/dL (6.2-8.2); WBC 2.28 X 10*3/uL (4.50-10.00)
[2022-07-15 17:09] LABS: Glucose,Whole Blood 202 mg/dL (70-110)
[2022-07-15] MEDS: INSULIN ASPART (NovoLOG) 100 UNIT/ML VIAL SQ SCH (18:01)
--- NOTE | 2022-07-15 19:38 | P.PN ---
Subjective Progress Note Date: 07/15/22 Patient is a 72-year-old male with a known history of right tonsillar squamous cell carcinoma and recent chemotherapy, hyperlipidemia, diabetes type 2 insulin- dependent, osteoarthritis, coronary artery disease history of CABG, history of cardiac valve replacement and prior history of smoking presents to ER with complaints of generalized weakness and decreased oral intake. Difficulty swallowing and nausea and occasional vomiting. Patient denied any complaints of fever or chills. No chest pain or shortness of. No headache or dizziness lightheadedness. No dysuria or hematuria. Patient has been having symptoms for the past couple of weeks. Patient has been having frequent falls and syncopal episodes at home. Denies any head injury. Chest x-ray on admission showed no acute cardiopulmonary process/disease. EKG showed sinus rhythm Laboratory pressure WBC 3.4 hemoglobin 11.1 and platelets 132 lymphocytes 0.8 Sodium 141 potassium 4.0 chloride 102 bicarb is 32 BUN 13 and creatinine 1.19 and blood sugar is 55 magnesium 1.2 Urinalysis is negative for infection. 07/15/2022 Patient is currently more awake and oriented. Able to walk with support to the bathroom. Nausea did improve and patient is able to tolerate diet slowly. No episodes of vomiting. Patient has been afebrile. Currently D5 normal saline will be changed to normal saline due to hyperglycemia and patient will be started on insulin regimen. No complaints of chest pain or shortness of breath. No headache or dizziness or lightheadedness. No cough or sputum production. Laboratory test showed WBC 2.28 hemoglobin 8.0 and platelets 98 Sodium 140 potassium 4.3 chloride 104 bicarb is 29.4 BUN is 9.0 and creatinine 1.2 and magnesium 1.8 Current medications reviewed. Objective - Vital Signs Vital signs: Vital Signs Temp 98.5 F 07/15/22 17:07 Pulse 68 07/15/22 17:07 Resp 18 07/15/22 17:07 BP 104/59 07/15/22 17:07 Pulse Ox 97 07/15/22 17:07 FiO2 Intake & Output 07/15/22 07/15/22 07/16/22 06:59 18:59 06:59 Intake Total 1200 Output Total 700 Balance 500 Intake: Intake, IV Titration 1200 Amount Dextrose 5%-0.9% NaCl 1, 1200 000 ml @ 100 mls/hr IV . Q10H [facility] Rx#:[id number] Output: Urine 700 Other: # Voids 1 3 - Exam PHYSICAL EXAMINATION: Patient is lying in the bed comfortably, no acute distress, awake alert and oriented.. HEENT: Normocephalic. Neck is supple. Pupils reactive. Nostrils clear. Oral cavi ty is moist. Neck reveals no JVD, carotid bruits, or thyromegaly. CHEST EXAMINATION: Trachea is central. Symmetrical expansion. Lung tsein clear to auscultation and percussion. CARDIAC: Normal S1, S2 with no gallops. No murmurs ABDOMEN: Soft. Bowel sounds present. Nontender. No organomegaly. No abdominal bruits. Extremities: reveal no edema. No clubbing or cyanosis Neurologically awake, alert, oriented x3 with well-coordinated movements. No focal deficits noted Skin: No rash or skin lesions. Psychiatric: Coperative. Nonsuicidal, Musculoskeletal: No joint swelling or deformity. Normal range of motion. - Labs CBC & Chem 7: 07/15/22 07:04 07/15/22 07:04 Labs: Abnormal Lab Results - Last 24 Hours (Table) 07/14/22 07/15/22 07/15/22 Range/Units 20:20 07:04 07:04 WBC 2.28 L (4.50-10.00) X 10*3/uL RBC 2.40 L (4.40-5.60) X 10*6/uL Hgb 8.0 L (13.0-17.0) g/dL Hct 24.5 L (39.6-50.0) % MCV 102.1 H (80.0-97.0) fL MCH 33.3 H (27.0-32.0) pg RDW 17.7 H (11.5-14.5) % Plt Count 98 L (140-440) X 10*3/uL MPV 9.4 L (9.5-12.2) fL Neutrophils # 1.43 L (1.80-7.70) X 10*3/uL Lymphocytes # 0.54 L (0.90-5.00) X 10*3/uL Eosinophils # 0.03 L (0.04-0.35) X 10*3/uL Carbon Dioxide 29.4 H (20.0-27.5) mmol/L Anion Gap 7.00 L (10.00-18.00) mmol/L Est GFR (CKD-EPI)NonAf 58.0 L (60.0-200.0) BUN/Creatinine Ratio 7.38 L (12.00-20.00) Ratio Glucose 158 H (70-110) mg/dL POC Glucose (mg/dL) 155 H (70-110) mg/dL Calcium 7.9 L (8.7-10.3) mg/dL Total Bilirubin 1.80 H (0.30-1.20) mg/dL AST 13 L (14-35) U/L ALT 9 L (10-49) U/L Total Protein 4.6 L (6.2-8.2) g/dL Albumin 3.0 L (3.8-4.9) g/dL 07/15/22 07/15/22 07/15/22 Range/Units 07:10 11:34 17:07 WBC (4.50-10.00) X 10*3/uL RBC (4.40-5.60) X 10*6/uL Hgb (13.0-17.0) g/dL Hct (39.6-50.0) % MCV (80.0-97.0) fL MCH (27.0-32.0) pg RDW (11.5-14.5) % Plt Count (140-440) X 10*3/uL MPV (9.5-12.2) fL Neutrophils # (1.80-7.70) X 10*3/uL Lymphocytes # (0.90-5.00) X 10*3/uL Eosinophils # (0.04-0.35) X 10*3/uL Carbon Dioxide (20.0-27.5) mmol/L Anion Gap (10.00-18.00) mmol/L Est GFR (CKD-EPI)NonAf (60.0-200.0) BUN/Creatinine Ratio (12.00-20.00) Ratio Glucose (70-110) mg/dL POC Glucose (mg/dL) 166 H 208 H 202 H (70-110) mg/dL Calcium (8.7-10.3) mg/dL Total Bilirubin (0.30-1.20) mg/dL AST (14-35) U/L ALT (10-49) U/L Total Protein (6.2-8.2) g/dL Albumin (3.8-4.9) g/dL Assessment and Plan Assessment: Generalized weakness and frequent falls due to poor oral intake, dehydration and volume depletion. Right tonsillar squamous cell carcinoma with recent chemotherapy Chemotherapy-induced pancytopenia, Hypomagnesemia Diabetes type 2 insulin-dependent Hyperlipidemia History of skin cancer Coronary artery history of CABG and cardiac valve replacement Prior history of smoking DVT prophylaxis with Lovenox subcu Plan: Patient will be continued on IV hydration with normal saline and symptomatic management for nausea and vomiting. Controlled blood sugars with insulin regimen at this dose.Encourage oral intake. Replace electrolytes and follow-up CBC closely. Transfuse if hemoglobin is less than 7 or platelets less than 10. Oncology service was consulted for evaluation. Prognosis is guarded. Continue to follow closely. Time with Patient: Greater than 30
[2022-07-15 19:57] LABS: Glucose,Whole Blood 179 mg/dL (70-110)
[2022-07-15] MEDS: SODIUM CHLORIDE 0.9% 1,000 ML IV SCH (20:51)
[2022-07-15] MEDS: metFORMIN 500 MG TAB PO SCH (20:51)
[2022-07-15] MEDS: INSULIN DETEMIR (LEVEMIR) 100 UNIT/ML SYR SQ SCH (20:52)
[2022-07-16 07:04] LABS: Glucose,Whole Blood 129 mg/dL (70-110)
[2022-07-16] MEDS: INSULIN ASPART (NovoLOG) 100 UNIT/ML VIAL SQ SCH ×3 (07:18→18:00)
[2022-07-16] MEDS: ASPIRIN 81 MG PO SCH (08:04)
[2022-07-16] MEDS: PANTOPRAZOLE 40 MG TABLET PO SCH (08:04)
[2022-07-16] MEDS: ENOXAPARIN 40 MG/0.4 ML SYRINGE SQ SCH (08:04)
[2022-07-16] MEDS: metFORMIN 500 MG TAB PO SCH ×2 (08:04→21:10)
[2022-07-16] MEDS: CHOLECALCIFEROL 25 MCG (1000 IU) TABLET PO SCH (08:04)
[2022-07-16] MEDS: SODIUM CHLORIDE 0.9% 1,000 ML IV SCH ×2 (08:04→18:00)
[2022-07-16] MEDS: ATORVASTATIN 80 MG TAB PO SCH (08:04)
[2022-07-16] MEDS: MAG HYDROX/AL HYDROX/SIMETH 30 ML, LIDOCAINE VISCOUS 2% 30 ML, diphenhydrAMINE ELIXIR 7... PO SCH ×12 (08:05→21:10)
[2022-07-16 09:38] LABS: Basophils # (A) 0 X 10*3/uL (0.00-0.10); Basophils % (A) 0 %; Eosinophils # (A) 0.03 X 10*3/uL (0.04-0.35); Eosinophils % (A) 1.5 %; HCT 25.2 % (39.6-50.0); HGB 8.1 g/dL (13.0-17.0); Immature Grans, Automated 0.5 %; Lymphocytes # (A) 0.51 X 10*3/uL (0.90-5.00); Lymphocytes % (A) 25.4 %; MCH 33.2 pg (27.0-32.0); MCHC 32.1 g/dL (32.0-37.0); MCV 103.3 fL (80.0-97.0); Mean Platelet Volume 9.7 fL (9.5-12.2); NRBC Per 100 WBC 0 /100 WBCS (0.0-0.0); Neutrophils # (A) 1.26 X 10*3/uL (1.80-7.70); Neutrophils % (A) 62.6 %; Platelet Count 105 X 10*3/uL (140-440); RBC 2.44 X 10*6/uL (4.40-5.60); RDW 17.6 % (11.5-14.5); WBC 2.01 X 10*3/uL (4.50-10.00)
[2022-07-16 09:58] LABS: African American GFR (CKD) 84.5 (60.0-200.0); Anion Gap 9.9 mmol/L (10.00-18.00); BUN/Creat Ratio 7.78 Ratio (12.00-20.00); Blood Urea Nitrogen 7.9 mg/dL (9.0-27.0); Calcium 7.9 mg/dL (8.7-10.3); Carbon Dioxide 26.2 mmol/L (20.0-27.5); Non-African American GFR(CKD) 72.9 (60.0-200.0); Potassium 4.3 mmol/L (3.5-5.5)
[2022-07-16 11:16] LABS: Glucose,Whole Blood 174 mg/dL (70-110)
[2022-07-16 14:02] VITALS: BMI 33.5
[2022-07-16 17:16] LABS: Glucose,Whole Blood 155 mg/dL (70-110)
[2022-07-16 20:33] LABS: Glucose,Whole Blood 142 mg/dL (70-110)
[2022-07-16] MEDS: INSULIN DETEMIR (LEVEMIR) 100 UNIT/ML SYR SQ SCH (21:10)
--- NOTE | 2022-07-17 01:01 | P.PN ---
Subjective Progress Note Date: 07/16/22 Patient is a 72-year-old male with a known history of right tonsillar squamous cell carcinoma and recent chemotherapy, hyperlipidemia, diabetes type 2 insulin- dependent, osteoarthritis, coronary artery disease history of CABG, history of cardiac valve replacement and prior history of smoking presents to ER with complaints of generalized weakness and decreased oral intake. Difficulty swallowing and nausea and occasional vomiting. Patient denied any complaints of fever or chills. No chest pain or shortness of. No headache or dizziness lightheadedness. No dysuria or hematuria. Patient has been having symptoms for the past couple of weeks. Patient has been having frequent falls and syncopal episodes at home. Denies any head injury. Chest x-ray on admission showed no acute cardiopulmonary process/disease. EKG showed sinus rhythm Laboratory pressure WBC 3.4 hemoglobin 11.1 and platelets 132 lymphocytes 0.8 Sodium 141 potassium 4.0 chloride 102 bicarb is 32 BUN 13 and creatinine 1.19 and blood sugar is 55 magnesium 1.2 Urinalysis is negative for infection. 07/15/2022 Patient is currently more awake and oriented. Able to walk with support to the bathroom. Nausea did improve and patient is able to tolerate diet slowly. No episodes of vomiting. Patient has been afebrile. Currently D5 normal saline will be changed to normal saline due to hyperglycemia and patient will be started on insulin regimen. No complaints of chest pain or shortness of breath. No headache or dizziness or lightheadedness. No cough or sputum production. Laboratory test showed WBC 2.28 hemoglobin 8.0 and platelets 98 Sodium 140 potassium 4.3 chloride 104 bicarb is 29.4 BUN is 9.0 and creatinine 1.2 and magnesium 1.8 07/16/2022 Patient is seen and evaluated and followed this morning reporting his oral intake is improved and is continued on gentle IV hydration with oncology following recommending outpatient follow up with Caroline. Patient reports to feeling better and will continue hydration and encourage oral intake over the next 24 hours with possible discharge in the am. Encouraged increased activity as tolerated. Patient is afebrile and denies chest pain or shortness of breath. Review of systems: Constitutional: No reports of fatigue, fever, or chills Cardiovascular: No reports of chest pain or palpitations Respiratory: No reports of shortness of breath or cough GI: No reports of nausea, vomiting, or diarrhea, reports improvement in oral intake : No reports of dysuria or retention Neurovascular: No reports of weakness or numbness All medications have been reviewed Active Medications Acetaminophen (Acetaminophen Tab 325 Mg Tab) 650 mg PO Q6HR PRN PRN Reason: Mild Pain or Fever > 100.5 Aspirin (Aspirin 81 Mg) 81 mg PO DAILY [facility] Last Admin: 07/16/22 08:04 Dose: 81 mg Atorvastatin Calcium (Atorvastatin 80 Mg Tab) 80 mg PO DAILY [facility] Last Admin: 07/16/22 08:04 Dose: 80 mg Cholecalciferol (Cholecalciferol 25 Mcg (1000 Iu) Tablet) 50 mcg PO DAILY [facility] Last Admin: 07/16/22 08:04 Dose: 50 mcg Al Hydroxide/Mg Hydroxide 30 ml/ Lidocaine HCl 30 ml/Diphenhydramine HCl 75 mg/Acetaminophen 960 mg 0 ml PO TID [facility] Last Admin: 07/16/22 08:05 Dose: 5 ml Enoxaparin Sodium (Enoxaparin 40 Mg/0.4 Ml Syringe) 40 mg SQ DAILY [facility] Last Admin: 07/16/22 08:04 Dose: 40 mg Sodium Chloride (Saline 0.9%) 1,000 mls @ 75 mls/hr IV .[id number] [facility] Last Admin: 07/16/22 08:04 Dose: 75 mls/hr Insulin Aspart (Insulin Aspart (Novolog) 100 Unit/Ml Vial) 7 unit SQ AC-TID [facility] Last Admin: 07/16/22 12:52 Dose: 7 unit Insulin Detemir (Insulin Detemir (Levemir) 100 Unit/Ml Syr) 25 unit SQ HS [facility] Last Admin: 07/15/22 20:52 Dose: 25 unit Metformin HCl (Metformin 500 Mg Tab) 500 mg PO BID [facility] Last Admin: 07/16/22 08:04 Dose: 500 mg Naloxone HCl (Naloxone 0.4 Mg/Ml 1 Ml Vial) 0.2 mg IV Q2M PRN PRN Reason: Opioid Reversal Ondansetron HCl (Ondansetron 4 Mg/2 Ml Vial) 4 mg IVP Q8HR PRN PRN Reason: Nausea And Vomiting Pantoprazole Sodium (Pantoprazole 40 Mg Tablet) 40 mg PO DAILY [facility] Last Admin: 07/16/22 08:04 Dose: 40 mg PHYSICAL EXAMINATION: Patient is lying in the bed comfortably, no acute distress, awake alert and oriented.. HEENT: Normocephalic. Neck is supple. Pupils reactive. Nostrils clear. Oral cavity is moist. Neck reveals no JVD, carotid bruits, or thyromegaly. CHEST EXAMINATION: Trachea is central. Symmetrical expansion. Lung stein clear to auscultation and percussion. CARDIAC: Normal S1, S2 with no gallops. No murmurs ABDOMEN: Soft. Bowel sounds present. Nontender. No organomegaly. No abdominal bruits. Extremities: reveal no edema. No clubbing or cyanosis Neurologically awake, alert, oriented x3 with well-coordinated movements. No focal deficits noted Skin: No rash or skin lesions. Psychiatric: Cooperative. Non-suicidal, Musculoskeletal: No joint swelling or deformity. Normal range of motion. Assessment: Generalized weakness and frequent falls due to poor oral intake, dehydration and volume depletion. Right tonsillar squamous cell carcinoma with recent chemotherapy Chemotherapy-induced pancytopenia Hypomagnesemia, improved Diabetes type 2 insulin-dependent Hyperlipidemia History of skin cancer Coronary artery history of CABG and cardiac valve replacement Prior history of smoking DVT prophylaxis with Lovenox subcu Plan: Patient will be continued on IV hydration with normal saline and symptomatic management for nausea and vomiting. Controlled blood sugars with insulin regimen at this dose. Encourage oral intake. Replace electrolytes and follow-up labs improved Oncology service evaluated recommending follow up outpatient with Caroline. Prognosis is guarded. Continue to follow closely. Possible discharge in 24 hours. The impression and plan of care has been dictated by Katelyn Glez, Nurse Practitioner as directed. Dr. Denise MD I have performed a history and examination and MDM of this patient, discussed the same with the dictator, and agree with the dictator's assessment and plan as written ,documented as a scribe. Based on total visit time, I have performed more than 50% of the visit. Objective - Vital Signs Vital signs: Vital Signs Temp 98.5 F 07/16/22 11:15 Pulse 79 07/16/22 11:15 Resp 17 07/16/22 11:15 BP 114/64 07/16/22 11:15 Pulse Ox 96 07/16/22 11:15 FiO2 Intake & Output 07/15/22 07/16/22 07/16/22 18:59 06:59 18:59 Intake Total 1300 Output Total 400 Balance 900 Weight 108.862 kg Intake: Intake, IV Titration 900 Amount Sodium Chloride 0.9% 1, 900 000 ml @ 75 mls/hr IV . [id number] [facility] Rx#:[id number] Oral 400 Output: Urine 400 Other: Voiding Method Urinal # Voids 3 2 - Labs CBC & Chem 7: 07/16/22 05:32 07/16/22 05:32 Labs: Abnormal Lab Results - Last 24 Hours (Table) 07/15/22 07/15/22 07/16/22 Range/Units 17:07 19:53 05:32 WBC 2.01 L (4.50-10.00) X 10*3/uL RBC 2.44 L (4.40-5.60) X 10*6/uL Hgb 8.1 L (13.0-17.0) g/dL Hct 25.2 L (39.6-50.0) % MCV 103.3 H (80.0-97.0) fL MCH 33.2 H (27.0-32.0) pg RDW 17.6 H (11.5-14.5) % Plt Count 105 L (140-440) X 10*3/uL Neutrophils # 1.26 L (1.80-7.70) X 10*3/uL Lymphocytes # 0.51 L (0.90-5.00) X 10*3/uL Eosinophils # 0.03 L (0.04-0.35) X 10*3/uL Anion Gap (10.00-18.00) mmol/L BUN (9.0-27.0) mg/dL BUN/Creatinine Ratio (12.00-20.00) Ratio Glucose (70-110) mg/dL POC Glucose (mg/dL) 202 H 179 H (70-110) mg/dL Calcium (8.7-10.3) mg/dL 07/16/22 07/16/22 07/16/22 Range/Units 05:32 07:02 11:15 WBC (4.50-10.00) X 10*3/uL RBC (4.40-5.60) X 10*6/uL Hgb (13.0-17.0) g/dL Hct (39.6-50.0) % MCV (80.0-97.0) fL MCH (27.0-32.0) pg RDW (11.5-14.5) % Plt Count (140-440) X 10*3/uL Neutrophils # (1.80-7.70) X 10*3/uL Lymphocytes # (0.90-5.00) X 10*3/uL Eosinophils # (0.04-0.35) X 10*3/uL Anion Gap 9.90 L (10.00-18.00) mmol/L BUN 7.9 L (9.0-27.0) mg/dL BUN/Creatinine Ratio 7.78 L (12.00-20.00) Ratio Glucose 112 H (70-110) mg/dL POC Glucose (mg/dL) 129 H 174 H (70-110) mg/dL Calcium 7.9 L (8.7-10.3) mg/dL
[2022-07-17 07:08] LABS: Glucose,Whole Blood 153 mg/dL (70-110)
[2022-07-17 09:04] LABS: Glucose,Whole Blood 165 mg/dL (70-110)
[2022-07-17 09:08] LABS: African American GFR (CKD) 85.6 (60.0-200.0); Anion Gap 7.7 mmol/L (10.00-18.00); BUN/Creat Ratio 6.4 Ratio (12.00-20.00); Blood Urea Nitrogen 6.4 mg/dL (9.0-27.0); Calcium 8.4 mg/dL (8.7-10.3); Carbon Dioxide 27.3 mmol/L (20.0-27.5); Magnesium 1.5 mg/dL (1.5-2.4); Non-African American GFR(CKD) 73.8 (60.0-200.0); Potassium 4.8 mmol/L (3.5-5.5)
[2022-07-17] MEDS: INSULIN ASPART (NovoLOG) 100 UNIT/ML VIAL SQ SCH ×2 (09:14→11:43)
[2022-07-17] MEDS: ATORVASTATIN 80 MG TAB PO SCH (09:15)
[2022-07-17] MEDS: PANTOPRAZOLE 40 MG TABLET PO SCH (09:15)
[2022-07-17] MEDS: metFORMIN 500 MG TAB PO SCH (09:15)
[2022-07-17] MEDS: ASPIRIN 81 MG PO SCH (09:15)
[2022-07-17] MEDS: CHOLECALCIFEROL 25 MCG (1000 IU) TABLET PO SCH (09:15)
[2022-07-17] MEDS: ENOXAPARIN 40 MG/0.4 ML SYRINGE SQ SCH (09:16)
[2022-07-17] MEDS: MAG HYDROX/AL HYDROX/SIMETH 30 ML, LIDOCAINE VISCOUS 2% 30 ML, diphenhydrAMINE ELIXIR 7... PO SCH ×8 (09:16→14:50)
[2022-07-17 11:17] LABS: Glucose,Whole Blood 113 mg/dL (70-110)
[2022-07-17 11:33] VITALS: BP 158/73; PULSE 52; RESP 17; TEMP 97.6
[2022-07-17] MEDS ORDERED: Magnesium Replacement Protocol 1 EACH MISC MISCELLANE PRN (13:06)
[2022-07-17] MEDS: SODIUM CHLORIDE 0.9% 1,000 ML IV SCH (13:22)
[2022-07-17] MEDS: MAGNESIUM SULFATE-D5W PMX 1 GM in DEXTROSE/WATER 1 100ML.BAG IVPB SCH ×2 (13:22→14:49)
--- NOTE | 2022-07-17 16:19 | P.PN ---
Subjective Progress Note Date: 07/17/22 Principal diagnosis: weakness, hypotension, dehydration In follow-up today patient is in a very good mood, joking around. He states there is still some pain with swallowing on the right side of his neck, he is tolerating liquids, feels much better than he did on admit. He denies any fevers, cough after eating or drinking, no bleeding. Not in any pain. Objective - Vital Signs Vital signs: Vital Signs Temp 97.6 F 07/17/22 11:32 Pulse 52 L 07/17/22 11:32 Resp 17 07/17/22 11:32 BP 158/73 07/17/22 11:32 Pulse Ox 99 07/17/22 11:32 FiO2 Intake & Output 07/16/22 07/17/22 07/17/22 18:59 06:59 18:59 Output Total 4 325 Balance -4 -325 Weight 108.862 kg Output: Urine 4 325 Other: Voiding Method Urinal - Constitutional General appearance: Present: cooperative, no acute distress, obese - EENT EENT Comment(s): dry mucous membranes Eyes: Present: anicteric sclerae, EOMI ENT: Present: hearing grossly normal - Respiratory Respiratory: bilateral: CTA - Cardiovascular Rhythm: regular Heart sounds: normal: S1, S2 Abnormal Heart Sounds: Absent: systolic murmur, diastolic murmur, rub, S3 Gallop, S4 Gallop, click, other - Peripheral edema leg Peripheral Edema: bilateral: Trace - Gastrointestinal General gastrointestinal: Present: normal bowel sounds, soft - Integumentary Integumentary: Present: normal turgor, pale - Neurologic Neurologic: Present: CNII-XII intact - Musculoskeletal Musculoskeletal: Present: strength equal bilaterally - Psychiatric Psychiatric: Present: A&O x's 3, appropriate affect, intact judgment & insight - Labs CBC & Chem 7: 07/16/22 05:32 07/17/22 05:59 Labs: Abnormal Lab Results - Last 24 Hours (Table) 07/16/22 07/16/22 07/17/22 Range/Units 17:15 20:31 05:59 Chloride 110 H (96-109) mmol/L Anion Gap 7.70 L (10.00-18.00) mmol/L BUN 6.4 L (9.0-27.0) mg/dL BUN/Creatinine Ratio 6.40 L (12.00-20.00) Ratio Glucose 145 H (70-110) mg/dL POC Glucose (mg/dL) 155 H 142 H (70-110) mg/dL Calcium 8.4 L (8.7-10.3) mg/dL 07/17/22 07/17/22 07/17/22 Range/Units 07:07 09:03 11:12 Chloride (96-109) mmol/L Anion Gap (10.00-18.00) mmol/L BUN (9.0-27.0) mg/dL BUN/Creatinine Ratio (12.00-20.00) Ratio Glucose (70-110) mg/dL POC Glucose (mg/dL) 153 H 165 H 113 H (70-110) mg/dL Calcium (8.7-10.3) mg/dL Assessment and Plan (1) Dehydration Current Visit: Yes Status: Acute Priority: High Code(s): E86.0 - DEHYDRATION SNOMED Code(s): 48599493 (2) Hypomagnesemia Current Visit: Yes Status: Acute Priority: High Code(s): E83.42 - HYPOMAGNESEMIA SNOMED Code(s): 470577792 (3) Squamous cell carcinoma of tonsil Current Visit: No Status: Chronic Priority: Medium Code(s): C09.9 - MALIGNANT NEOPLASM OF TONSIL, UNSPECIFIED SNOMED Code(s): 169116275 Plan: Patient has received hydration and supportive medications since admit. He is doing much better, relays improvement in his energy levels and fatigue. Dysphagia/odynophagia is improving slowly post treatment. Patient's diet will have to continue to be modified, with changes as he tolerates. Low magnesium, secondary to poor intake. Patient received IV supplementation. Additional days of oral supplementation of been sent to the patient's [facility] pharmacy. Patient has a follow-up with Dr. Velazquez early next week, mag level will be rechecked then. Discussed case with Attending [facility]. Patient is okay from a Heme/Oncology standpoint to be discharged once he is cleared by Attending and other consulting Physicians. Time with Patient: Greater than 30
--- NOTE | 2022-07-19 15:37 | P.DS ---
Providers Date of admission: 07/14/22 10:04 Expected date of discharge: 07/17/22 Attending physician: Viviana Victor Consults: 07/14/22 10:03 Consult Physician Routine Consulting Provider: Jamin Velazquez Consult Reason/Comments: Oncological care Do you want consulting provider notified?: Yes Primary care physician: Jonathan Garham [facility] Course: Final diagnosis Generalized weakness and frequent falls due to poor oral intake, dehydration and volume depletion. Right tonsillar squamous cell carcinoma with recent chemotherapy Chemotherapy-induced pancytopenia Hypomagnesemia, improved Diabetes type 2 insulin-dependent Hyperlipidemia History of skin cancer Coronary artery history of CABG and cardiac valve replacement Prior history of smoking DVT prophylaxis Discharge disposition Patient is being discharged in a stable condition with guarded prognosis to home. Patient will follow-up with Dr. Graham in the outpatient setting upon discharge. Patient is to follow-up with oncology as scheduled. Total time taken is greater than 35 minutes. Hospital course This is a 61-year-old male who was recently admitted with dehydration poor oral intake with difficulty in swallowing. Patient does have history of right tonsillar squamous cell carcinoma with recent chemotherapy and was recently hospitalized for the same. Patient is to follow-up with oncology outpatient. Patient also with some hypomagnesemia and hydrated with improvement in labs. Patient recommended to follow-up with primary care provider and also repeat labs in the next few days. Encouraged oral intake. Patient reports to feeling much better and anxious to go home. Currently no reports of chest pain, shortness of breath, or palpitations. Patient is afebrile. No reports of nausea or vomiting and patient is tolerating diet. Patient will be discharged home today. Physical exam: Gen: This is a 72-year-old male awake, alert and oriented 3, well-developed, well-nourished, obese. HEENT: Head is atraumatic, normocephalic. Pupils equal, round. Sclerae is anicteric. NECK: Supple. No JVD. No lymphadenopathy. No thyromegaly. LUNGS: Clear to auscultation. No wheezes or rhonchi. No intercostal retractions. HEART: Regular rate and rhythm. No murmur. ABDOMEN: Soft. Bowel sounds are present. No masses. No tenderness. EXTREMITIES: No pedal edema. No calf tenderness. NEUROLOGICAL: Patient is awake, alert and oriented x3. Cranial nerves 2 through 12 are grossly intact. Please refer to medication reconciliation sheet for a list of medications. The impression and plan of care has been dictated by Katelyn Glez, Nurse Practitioner as directed. Dr. Marco A MD I have performed a history and examination and MDM of this patient, discussed the same with the dictator, and agree with the dictator's assessment and plan as written ,documented as a scribe. Based on total visit time, I have performed more than 50% of the visit. Patient Condition at Discharge: Fair Plan - Discharge Summary New Discharge Prescriptions: Continue Insulin Glargine [Lantus Vial] 40 unit SQ BID metFORMIN HCL [Glucophage] 500 mg PO BID Dulaglutide [Trulicity] 1.5 mg SQ MO Atorvastatin Calcium [Lipitor] 80 mg PO DAILY Petrolatum, White [Aquaphor] 1 applic TOPICAL QID each Triamcinolone 0.1% Ointment [Kenalog 0.1% Ointment] 1 applic TOPICAL QID each Acetaminophen Tab [Tylenol] 650 mg PO Q6HR PRN tab PRN Reason: Mild Pain Or Fever > 100.5 INSULIN LISPRO (humaLOG) [humaLOG] 25 units SQ BID Ondansetron [Zofran] 4 mg PO Q8HR PRN PRN Reason: Nausea HYDROcodone/APAP 5-325MG [[place] 5-325] 1 tab PO Q4HR traMADol HCL 50 mg PO TID PRN PRN Reason: Pain Cholecalciferol [Vitamin D3 (25 Mcg = 1000 Iu)] 50 mcg PO DAILY Aspirin [Mason Aspirin EC] 81 mg PO DAILY Pantoprazole Sodium [Protonix] 40 mg PO HS Discharge Medication List Insulin Glargine [Lantus Vial] 40 unit SQ BID 02/20/19 [History] metFORMIN HCL [Glucophage] 500 mg PO BID 02/20/19 [History] INSULIN LISPRO (humaLOG) [humaLOG] 25 units SQ BID 03/26/22 [History] Aspirin [Mason Aspirin EC] 81 mg PO DAILY 06/24/22 [History] Atorvastatin Calcium [Lipitor] 80 mg PO DAILY 06/24/22 [History] Cholecalciferol [Vitamin D3 (25 Mcg = 1000 Iu)] 50 mcg PO DAILY 06/24/22 [His tory] Dulaglutide [Trulicity] 1.5 mg SQ MO 06/24/22 [History] HYDROcodone/APAP 5-325MG [[place] 5-325] 1 tab PO Q4HR 06/24/22 [History] Ondansetron [Zofran] 4 mg PO Q8HR PRN 06/24/22 [History] Pantoprazole Sodium [Protonix] 40 mg PO HS 06/24/22 [History] traMADol HCL 50 mg PO TID PRN 06/24/22 [History] Acetaminophen Tab [Tylenol] 650 mg PO Q6HR PRN tab 06/29/22 [Rx] Petrolatum, White [Aquaphor] 1 applic TOPICAL QID each 06/29/22 [Rx] Triamcinolone 0.1% Ointment [Kenalog 0.1% Ointment] 1 applic TOPICAL QID each 06/29/22 [Rx] Follow up Appointment(s)/Referral(s): Jonathan Graham DO [Primary Care Provider] - 1-2 days (office will call and schedule appt for patient) Jamin Velazquez MD [STAFF PHYSICIAN] - 07/23/22 11:45 am Ambulatory/Diagnostic Orders: Basic Metabolic Panel [LAB.AMB] Time Frame: 3 Days, Location: None Selected Patient Instructions/Handouts: Dehydration (DC), Fall Prevention for Older Adults (DC), Type 2 Diabetes in the Older Adult (DC) Activity/Diet/Wound Care/Special Instructions: Activity Limited until follow-up Follow-up with oncology outpatient as scheduled Follow-up with primary care provider on discharge Continue to encourage oral intake Recommend repeat labs in the next 2-3 days Discharge Disposition: HOME SELF-CARE
== END 2022-07-17 16:05 | disposition home or self-care (01) | DRG 640 ==
LOC: EC 08:42 → 5NMEDONC 10:04
PROVIDERS: ADMIT Hospitalist; ATTEND Hospitalist
DX: E86.0 Dehydration (principal); D61.810 Antineoplastic chemotherapy induced pancytopenia; I95.9 Hypotension, unspecified; E11.649 Type 2 diabetes mellitus with hypoglycemia without coma; C09.9 Malignant neoplasm of tonsil, unspecified; E11.65 Type 2 diabetes mellitus with hyperglycemia; E66.9 Obesity, unspecified; Z68.33 Body mass index [BMI] 33.0-33.9, adult; R13.19 Other dysphagia; E78.5 Hyperlipidemia, unspecified; E83.42 Hypomagnesemia; M19.90 Unspecified osteoarthritis, unspecified site; R29.6 Repeated falls; I45.19 Other right bundle-branch block; T45.1X5A Adverse effect of antineoplastic and immunosuppressive drugs, initial encounter; I25.10 Atherosclerotic heart disease of native coronary artery without angina pectoris; Z96.643 Presence of artificial hip joint, bilateral; Z79.84 Long term (current) use of oral hypoglycemic drugs; Z79.899 Other long term (current) drug therapy; Z79.4 Long term (current) use of insulin; Z79.82 Long term (current) use of aspirin; Z88.0 Allergy status to penicillin; Z87.01 Personal history of pneumonia (recurrent); Z85.828 Personal history of other malignant neoplasm of skin; Z91.81 History of falling; Z95.1 Presence of aortocoronary bypass graft; Z95.2 Presence of prosthetic heart valve; Z98.890 Other specified postprocedural states; Z87.891 Personal history of nicotine dependence; Z82.49 Family history of ischemic heart disease and other diseases of the circulatory system; Z92.21 Personal history of antineoplastic chemotherapy; Z92.3 Personal history of irradiation; Z83.3 Family history of diabetes mellitus
CPT/HCPCS: 36415; 71046; 80048; 80053; 81003; 83605; 83735; 84100; 84443; 85025; 85610; 85730; 93005; 96361; 96365; 96375; 99285

== ENCOUNTER 2022-08-02 12:03 | Inpatient (IN) | payer MEDICARE ==
[2022-08-02] MEDS ORDERED: SODIUM CHLORIDE 0.9% 500 ML 500 ML IV STA (12:49)
--- NOTE | 2022-08-02 12:51 | ED ---
General Adult HPI - General Chief complaint: Syncope Stated complaint: Syncope Time Seen by Provider: 08/02/22 12:26 Source: patient, family, RN notes reviewed Mode of arrival: wheelchair Limitations: no limitations - History of Present Illness Initial comments: Patient is a pleasant 72-year-old male presenting to the emergency department with syncopal episodes. She was in the hospital a few weeks ago with similar episodes, was better when he was discharged however have been occurring again the past 5 or 6 days. Episodes are generally occurring about once per day and her sudden. Patient did strike his head today. No headache. Patient does com pletely lose consciousness with these episodes. No chest pain. No dyspnea. Patient currently is under treatment with chemotherapy and radiation for throat cancer. - Related Data Home Medications Medication Instructions Recorded Confirmed Insulin Glargine [Lantus Vial] 40 unit SQ BID 02/20/19 07/14/22 metFORMIN HCL [Glucophage] 500 mg PO BID 02/20/19 07/14/22 INSULIN LISPRO (humaLOG) [humaLOG] 25 units SQ BID 03/26/22 07/14/22 Aspirin [[place] Aspirin EC] 81 mg PO DAILY 06/24/22 07/14/22 Atorvastatin Calcium [Lipitor] 80 mg PO DAILY 06/24/22 07/14/22 Cholecalciferol [Vitamin D3 (25 50 mcg PO DAILY 06/24/22 07/14/22 Mcg = 1000 Iu)] Dulaglutide [Trulicity] 1.5 mg SQ MO 06/24/22 07/14/22 HYDROcodone/APAP 5-325MG [[place] 1 tab PO Q4HR 06/24/22 07/14/22 5-325] Ondansetron [Zofran] 4 mg PO Q8HR PRN 06/24/22 07/14/22 Pantoprazole Sodium [Protonix] 40 mg PO HS 06/24/22 07/14/22 traMADol HCL 50 mg PO TID PRN 06/24/22 07/14/22 Previous Rx's Medication Instructions Recorded Acetaminophen Tab [Tylenol] 650 mg PO Q6HR PRN tab 06/29/22 Petrolatum, White [Aquaphor] 1 applic TOPICAL QID each 06/29/22 Triamcinolone 0.1% Ointment 1 applic TOPICAL QID each 06/29/22 [Kenalog 0.1% Ointment] Allergies Allergy/AdvReac Type Severity Reaction Status Date / Time Penicillins Allergy Rash/Hives/ Verified 07/14/22 13:57 SOB Review of Systems ROS Statement: Those systems with pertinent positive or pertinent negative responses have been documented in the HPI. ROS Other: All systems not noted in ROS Statement are negative. Constitutional: Denies: fever Eyes: Denies: eye pain ENT: Denies: ear pain Respiratory: Denies: cough, dyspnea Cardiovascular: Denies: chest pain Endocrine: Denies: fatigue Gastrointestinal: Denies: abdominal pain Genitourinary: Denies: dysuria Musculoskeletal: Denies: back pain Skin: Denies: rash Neurological: Denies: weakness Past Medical History Past Medical History: Cancer, Diabetes Mellitus, Hyperlipidemia, Osteoarthritis (OA), Pneumonia, Skin Disorder, Syncope Additional Past Medical History / Comment(s): see Dr Maravilla H&P, hx skin cancer, dizziness-using a walker, has had a few falls recently History of Any Multi-Drug Resistant Organisms: None Reported Past Surgical History: Cardiac Valve Replacement, Coronary Bypass/CABG, Heart Catheterization, Joint Replacement, Orthopedic Surgery Additional Past Surgical History / Comment(s): kary hip replacements(multiple, each hip)+surgeries for post op infections, CABG and valve replacement, removal of skin cancer, Past Anesthesia/Blood Transfusion Reactions: No Reported Reaction Additional Past Anesthesia/Blood Transfusion Reaction / Comment(s): Pt has received blood transfusion without reaction. Past Psychological History: No Psychological Hx Reported Smoking Status: Former smoker Past Alcohol Use History: Rare Past Drug Use History: None Reported - Past Family History Mother Family Medical History: Deep Vein Thrombosis (DVT) Brother(s) Family Medical History: Diabetes Mellitus, Hyperlipidemia, Hypertension Son(s) Family Medical History: No Reported History General Exam Limitations: no limitations General appearance: alert, in no apparent distress Head exam: Present: atraumatic, normocephalic Eye exam: Present: normal appearance, PERRL, EOMI ENT exam: Present: other (Minimal enlargement right posterior pharynx) Neck exam: Present: normal inspection Respiratory exam: Present: normal lung sounds bilaterally Cardiovascular Exam: Present: regular rate, normal rhythm Expanded Peripheral pulses: 2+: Radial (R), Radial (L), Posterior Tibialis (R), Posterior Tibialis (L) GI/Abdominal exam: Present: soft. Absent: tenderness Extremities exam: Present: normal inspection. Absent: pedal edema, calf tender ness Neurological exam: Present: alert Psychiatric exam: Present: normal affect, normal mood Skin exam: Present: normal color Course Vital Signs 08/02/22 08/02/22 12:19 12:42 Temperature 97.9 F Pulse Rate 68 65 Respiratory 16 16 Rate Blood Pressure 77/41 89/51 O2 Sat by Pulse 99 97 Oximetry EKG Findings - EKG Comments: EKG Findings:: Sinus rhythm rate 65. MN 193. QRS 15. QT 402. QTC 44. Left axis. Septal Q waves. No acute ST change. Medical Decision Making - Medical Decision Making Patient reevaluated. Patient family updated on results and plan. Dr. Walker has been paged covering Dr. Morataya for admission. Systolic blood pressure 89 - Lab Data Result diagrams: 08/02/22 12:53 08/02/22 12:53 Lab Results 08/02/22 08/02/22 08/02/22 Range/Units 12:52 12:53 12:53 WBC 6.0 (3.8-10.6) k/uL RBC 3.68 L (4.30-5.90) m/uL Hgb 11.9 L (13.0-17.5) gm/dL Hct 36.2 L (39.0-53.0) % MCV 98.3 (80.0-100.0) fL MCH 32.3 (25.0-35.0) pg MCHC 32.8 (31.0-37.0) g/dL RDW 15.8 H (11.5-15.5) % Plt Count 179 (150-450) k/uL MPV 7.9 Neutrophils % 64 % Lymphocytes % 25 % Monocytes % 7 % Eosinophils % 2 % Basophils % 0 % Neutrophils # 3.9 (1.3-7.7) k/uL Lymphocytes # 1.5 (1.0-4.8) k/uL Monocytes # 0.4 (0-1.0) k/uL Eosinophils # 0.1 (0-0.7) k/uL Basophils # 0.0 (0-0.2) k/uL Hypochromasia Slight Poikilocytosis Slight Macrocytosis Slight PT 10.8 (9.0-12.0) sec INR 1.0 (<1.2) APTT 31.0 H (22.0-30.0) sec Sodium (137-145) mmol/L Potassium (3.5-5.1) mmol/L Chloride (98-107) mmol/L Carbon Dioxide (22-30) mmol/L Anion Gap mmol/L BUN (9-20) mg/dL Creatinine (0.66-1.25) mg/dL Est GFR (CKD-EPI)AfAm (>60 ml/min/1.73 sqM) Est GFR (CKD-EPI)NonAf (>60 ml/min/1.73 sqM) Glucose (74-99) mg/dL POC Glucose (mg/dL) 99 (70-110) mg/dL POC Glu [employer] Super[employer] ID Trista Castillo Calcium (8.4-10.2) mg/dL Magnesium (1.6-2.3) mg/dL Total Bilirubin (0.2-1.3) mg/dL AST (17-59) U/L ALT (4-49) U/L Alkaline Phosphatase (38-126) U/L Troponin I (0.000-0.034) ng/mL Total Protein (6.3-8.2) g/dL Albumin (3.5-5.0) g/dL 08/02/22 08/02/22 Range/Units 12:53 12:53 WBC (3.8-10.6) k/uL RBC (4.30-5.90) m/uL Hgb (13.0-17.5) gm/dL Hct (39.0-53.0) % MCV (80.0-100.0) fL MCH (25.0-35.0) pg MCHC (31.0-37.0) g/dL RDW (11.5-15.5) % Plt Count (150-450) k/uL MPV Neutrophils % % Lymphocytes % % Monocytes % % Eosinophils % % Basophils % % Neutrophils # (1.3-7.7) k/uL Lymphocytes # (1.0-4.8) k/uL Monocytes # (0-1.0) k/uL Eosinophils # (0-0.7) k/uL Basophils # (0-0.2) k/uL Hypochromasia Poikilocytosis Macrocytosis PT (9.0-12.0) sec INR (<1.2) APTT (22.0-30.0) sec Sodium 139 (137-145) mmol/L Potassium 4.9 (3.5-5.1) mmol/L Chloride 101 (98-107) mmol/L Carbon Dioxide 23 (22-30) mmol/L Anion Gap 15 mmol/L BUN 26 H (9-20) mg/dL Creatinine 1.55 H (0.66-1.25) mg/dL Est GFR (CKD-EPI)AfAm 50 (>60 ml/min/1.73 sqM) Est GFR (CKD-EPI)NonAf 44 (>60 ml/min/1.73 sqM) Glucose 105 H (74-99) mg/dL POC Glucose (mg/dL) (70-110) mg/dL POC Glu [employer] Supervisor ID Calcium 9.1 (8.4-10.2) mg/dL Magnesium 1.6 (1.6-2.3) mg/dL Total Bilirubin 1.3 (0.2-1.3) mg/dL AST 28 (17-59) U/L ALT 23 (4-49) U/L Alkaline Phosphatase 89 (38-126) U/L Troponin I <0.012 (0.000-0.034) ng/mL Total Protein 6.3 (6.3-8.2) g/dL Albumin 3.9 (3.5-5.0) g/dL - Radiology Data Radiology results: report reviewed (CT brain shows no acute process), image reviewed (Chest x-ray shows no acute process) Disposition Clinical Impression: Recurrent syncope Disposition: ADMITTED IP TO THIS HOSP Is patient prescribed a controlled substance at d/c from ED?: No Referrals: Jonathan Graham DO [Primary Care Provider] - 1-2 days Time of Disposition: 14:01
[2022-08-02 12:55] LABS: Glucose,Whole Blood 99 mg/dL (70-110)
[2022-08-02 13:04] LABS: Basophils % (A) 0 %; Eosinophils # (A) 0.1 k/uL (0-0.7); Eosinophils % (A) 2 %; HCT 36.2 % (39.0-53.0); HGB 11.9 gm/dL (13.0-17.5); Hypochromasia Slight; Lymphocytes # (A) 1.5 k/uL (1.0-4.8); Lymphocytes % (A) 25 %; MCH 32.3 pg (25.0-35.0); MCHC 32.8 g/dL (31.0-37.0); MCV 98.3 fL (80.0-100.0); Macrocytosis Slight; Mean Platelet Volume 7.9; Monocytes # (A) 0.4 k/uL (0-1.0); Monocytes % (A) 7 %; Neutrophils # (A) 3.9 k/uL (1.3-7.7); Neutrophils % (A) 64 %; Platelet Count 179 k/uL (150-450); Poikilocytosis Slight; RBC 3.68 m/uL (4.30-5.90); RDW 15.8 % (11.5-15.5)
[2022-08-02 13:13] LABS: Albumin 3.9 g/dL (3.5-5.0); Calcium 9.1 mg/dL (8.4-10.2); Magnesium 1.6 mg/dL (1.6-2.3); Potassium 4.9 mmol/L (3.5-5.1); Total Bilirubin 1.3 mg/dL (0.2-1.3); Total Protein 6.3 g/dL (6.3-8.2)
[2022-08-02 13:26] LABS: Prothrombin Time 10.8 sec (9.0-12.0)
--- NOTE | 2022-08-02 13:47 | CT ---
EXAMINATION TYPE: CT brain wo con DATE OF EXAM: 08/02/2022 COMPARISON: 12/05/17 HISTORY: Syncope CT DLP: [address] of the brain was performed. The ventricles, basal cisterns and sulci overlying the cerebral convexities demonstrate mild enlargem ent. There is no evidence for intracranial hemorrhage or sulcal effacement. There is decreased attenuation about the periventricular white matter and deep white matter of both c erebral hemispheres, compatible with chronic small vessel ischemia. Differential diagnosis does inclu de demyelination. No mass effects are seen.No midline shift. Osseous calvarium is intact. If symptoms persist consider MRI. IMPRESSION: 1. Age related atrophic and chronic small vessel ischemic change without acute intracranial process s een at this time.
--- NOTE | 2022-08-02 13:49 | XR ---
EXAMINATION TYPE: XR chest 2V DATE OF EXAM: 08/02/2022 COMPARISON: 07/14/22 HISTORY: Shortness of breath TECHNIQUE: Frontal and lateral views of the chest are obtained. FINDINGS: Scattered senescent parenchymal changes noted. Hyperinflation compatible with COPD. No evidence for infiltrate. No evidence for atelectasis. Heart size is stable. Mediastinal structures are stable and grossly unremarkable. No evidence for hilar prominence. Degenerative changes dorsal spine. IMPRESSION: 1. No evidence for acute pulmonary disease.
[2022-08-02] MEDS ORDERED: ACETAMINOPHEN TAB 325 MG TAB PO PRN (14:01)
[2022-08-02] MEDS ORDERED: NALOXONE 0.4 MG/ML 1 ML VIAL IV PRN (14:01)
[2022-08-02] MEDS: SODIUM CHLORIDE 0.9% 1,000 ML IV SCH (14:36)
[2022-08-02 22:17] LABS: Glucose,Whole Blood 154 mg/dL (70-110)
[2022-08-03] MEDS ORDERED: ONDANSETRON 4 MG TAB PO PRN (08:04)
[2022-08-03] MEDS ORDERED: traMADol 50 MG TAB PO PRN (08:04)
[2022-08-03 08:21] LABS: Glucose,Whole Blood 138 mg/dL (70-110)
[2022-08-03] MEDS ORDERED: INSULIN ASPART (NovoLOG) 100 UNIT/ML VIAL SQ SCH (09:00)
--- NOTE | 2022-08-03 09:22 | P.HPIM ---
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 Patient says that he has not been taking very well at home. Decreased appetite. Denied any head injury. No complaints of vomiting. He does have nausea. No chest pain or shortness breath. No fever no chills. No leg swelling. CT head showed is related to be and chronic small vessel ischemic changes without intracranial process. EKG showed normal sinus rhythm with left axis deviation. Patient was hypotensive on admission blood pressure 77/41. Laboratory data showed WBC 6.0 hemoglobin 11.9 and platelets 179 Sodium 139 potassium 4.9 chloride 101 bicarb is 23 BUN 26 and creatinine 1.55 and blood sugar 105 Liver enzymes are not elevated. Troponin 3 negative. Review of Systems Constitutional: Patient denies any fever or chills . Generalized weakness and falls.. Abdomen: Patient denied nausea vomiting and diarrhea and abdominal pain. Cardiovascular: Patient denies any chest pain or short of breath no palpitations. Respiratory: patient denied any cough is from production. No shortness of breath Neurologic: Patient denied any numbness or tingling headache. Syncope Musculoskeletal: Patient denies any complaints of joint swelling or deformity. Skin: Negative Psychiatric: Negative Endocrine: No heat or cold intolerance. No recent weight gain. Genitourinary: No dysuria or hematuria. All other 14 point ROS negative except the above Past Medical History Past Medical History: Cancer, Diabetes Mellitus, Hyperlipidemia, Osteoarthritis (OA), Pneumonia, Skin Disorder, Syncope Additional Past Medical History / Comment(s): see Dr Maravilla H&P, hx skin cancer, dizziness-using a walker, has had a few falls recently History of Any Multi-Drug Resistant Organisms: None Reported Past Surgical History: Cardiac Valve Replacement, Coronary Bypass/CABG, Heart Catheterization, Joint Replacement, Orthopedic Surgery Additional Past Surgical History / Comment(s): kary hip replacements(multiple, each hip)+surgeries for post op infections, CABG and valve replacement, removal of skin cancer, Past Anesthesia/Blood Transfusion Reactions: No Reported Reaction Additional Past Anesthesia/Blood Transfusion Reaction / Comment(s): Pt has received blood transfusion without reaction. Smoking Status: Former smoker - Past Family History Mother Family Medical History: Deep Vein Thrombosis (DVT) Brother(s) Family Medical History: Diabetes Mellitus, Hyperlipidemia, Hypertension Son(s) Family Medical History: No Reported History Medications and Allergies Home Medications Medication Instructions Recorded Confirmed Type Insulin Glargine [Lantus Vial] 40 unit SQ BID 02/20/19 08/02/22 History metFORMIN HCL [Glucophage] 500 mg PO BID 02/20/19 08/02/22 History INSULIN LISPRO (humaLOG) [humaLOG] 15 units SQ BID 03/26/22 08/02/22 History Aspirin [[place] Aspirin EC] 81 mg PO DAILY 06/24/22 08/02/22 History Atorvastatin Calcium [Lipitor] 80 mg PO DAILY 06/24/22 08/02/22 History Cholecalciferol [Vitamin D3 (25 50 mcg PO DAILY 06/24/22 08/02/22 History Mcg = 1000 Iu)] Dulaglutide [Trulicity] 1.5 mg SQ MO 06/24/22 08/02/22 History HYDROcodone/APAP 5-325MG [[place] 1 tab PO Q4HR 06/24/22 08/02/22 History 5-325] Ondansetron [Zofran] 4 mg PO Q8HR PRN 06/24/22 08/02/22 History Pantoprazole Sodium [Protonix] 40 mg PO HS 06/24/22 08/02/22 History traMADol HCL 50 mg PO TID PRN 06/24/22 08/02/22 History Acetaminophen Tab [Tylenol] 650 mg PO Q6HR PRN tab 06/29/22 08/02/22 Rx Petrolatum, White [Aquaphor] 1 applic TOPICAL QID each 06/29/22 08/02/22 Rx Triamcinolone 0.1% Ointment 1 applic TOPICAL QID each 06/29/22 08/02/22 Rx [Kenalog 0.1% Ointment] Allergies Allergy/AdvReac Type Severity Reaction Status Date / Time Penicillins Allergy Rash/Hives/ Verified 08/02/22 14:33 SOB Physical Exam Vitals: Vital Signs Temp Pulse Pulse Resp BP BP Pulse Ox 08/02/22 21:55 98.6 F 64 16 138/70 98 08/02/22 20:51 99.2 F 60 18 98/46 97 08/02/22 19:02 62 17 101/80 99 08/02/22 16:20 65 18 93/55 97 08/02/22 12:42 65 16 89/51 97 08/02/22 12:19 97.9 F 68 16 77/41 99 Intake and Output 08/02/22 08/02/22 08/02/22 06:59 14:59 22:59 Other: Weight 103.419 kg 103.419 kg PHYSICAL EXAMINATION: Patient is lying in the bed comfortably, no acute distress, awake alert and oriented.. HEENT: Normocephalic. Neck is supple. Pupils reactive. Nostrils clear. Oral cavity is moist. Neck reveals no JVD, carotid bruits, or thyromegaly. CHEST EXAMINATION: Trachea is central. Symmetrical expansion. Lung stein clear to auscultation and percussion. CARDIAC: Normal S1, S2 with no gallops. No murmurs ABDOMEN: Soft. Bowel sounds present. Nontender. No organomegaly. No abdominal bruits. Extremities: reveal no edema. No clubbing or cyanosis Neurologically awake, alert, oriented x3 with well-coordinated movements. No focal deficits noted Skin: No rash or skin lesions. Psychiatric: Coperative. Nonsuicidal, Musculoskeletal: No joint swelling or deformity. Normal range of motion. Results CBC & Chem 7: 08/04/22 07:04 08/04/22 07:04 Labs: Abnormal Lab Results - Last 24 Hours (Table) 08/02/22 08/02/22 08/02/22 Range/Units 12:53 12:53 12:53 RBC 3.68 L (4.30-5.90) m/uL Hgb 11.9 L (13.0-17.5) gm/dL Hct 36.2 L (39.0-53.0) % RDW 15.8 H (11.5-15.5) % APTT 31.0 H (22.0-30.0) sec BUN 26 H (9-20) mg/dL Creatinine 1.55 H (0.66-1.25) mg/dL Glucose 105 H (74-99) mg/dL Thrombosis Risk Factor Assmnt - DVT/VTE Prophylaxis DVT/VTE Prophylaxis: Pharmacologic Prophylaxis ordered - Choose All That Apply Any of the Below Risk Factors Present?: Yes Each Factor Represents 1 point: Abnormal pulmonary function (COPD), Obesity (BMI >25) Other Risk Factors: Yes Each Risk Factor Represents 2 Points: Age 61-74 years, Patient confined to bed Each Risk Factor Represents 3 Points: History of DVT/PE Other congenital or acquired thrombophilia - If yes, enter type in comment: No Thrombosis Risk Factor Assessment Total Risk Factor Score: 9 Thrombosis Risk Factor Assessment Level: High Risk Assessment and Plan Assessment: Acute syncopal episode likely due to hypotension. Rule out seizures. Generalized weakness and frequent falls due to poor oral intake, dehydration and volume depletion. Right tonsillar squamous cell carcinoma with recent chemotherapy Chemotherapy-induced pancytopenia, Hypomagnesemia Diabetes type 2 insulin-dependent Hyperlipidemia History of skin cancer Coronary artery history of CABG and cardiac valve replacement Prior history of smoking DVT prophylaxis with Lovenox subcu Plan: Patient be continued on IV hydration. Orthostatic vitals will be ordered. Cardiology was consulted due to his multiple syncopal episodes. Neurology is on board. Carotid duplex was ordered. Recommends MRI of the brain without and without contrast to rule out any brain metastasis. Replace electrolytes and follow up closely. Time with Patient: Greater than 30
[2022-08-03] MEDS: ATORVASTATIN 80 MG TAB PO SCH (09:54)
[2022-08-03] MEDS: ASPIRIN 81 MG PO SCH (09:54)
[2022-08-03] MEDS: CHOLECALCIFEROL 25 MCG (1000 IU) TABLET PO SCH (09:54)
[2022-08-03] MEDS: INSULIN DETEMIR (LEVEMIR) 100 UNIT/ML SYR SQ SCH ×2 (09:55→20:54)
[2022-08-03] MEDS: metFORMIN 500 MG TAB PO SCH ×2 (09:59→16:39)
[2022-08-03] MEDS: HYDROcodone/APAP 5-325MG 1 EACH TAB PO SCH ×3 (11:33→21:00)
[2022-08-03] MEDS: SODIUM CHLORIDE 0.9% 1,000 ML IV SCH ×2 (11:38→16:39)
[2022-08-03 11:47] LABS: Calcium 8.7 mg/dL (8.4-10.2); Potassium 5.8 mmol/L (3.5-5.1)
[2022-08-03 12:04] LABS: Glucose,Whole Blood 94 mg/dL (70-110)
[2022-08-03 17:00] LABS: Glucose,Whole Blood 158 mg/dL (70-110)
--- NOTE | 2022-08-03 17:55 | P.CONS ---
History of Present Illness - Reason for Consult Consult date: 08/03/22 Oncologic Care Requesting physician: Andrés Rehman - History of Present Illness This is a very nice patient of Dr. Garcia who presented with feeling a lump in his throat for about 3-4 months duration,he was initially evaluated by Dr Moser,CT scan of neck in March/2022 showed no suspicious finding but in retrospect,a subtle masslike area seen in the right tonsil,on 03/28/2022,he underwent fiber optic exam revealing 3.5x3x2 cm mass invoving right tonsil,bniopsy was positive for invasive squamous cell carcinoma,P16+,he was evaluated by Dr Ramos,found mass extending to soft palate near uvula with some base of tongue invasion. On 05/14/2022,he started weekly carbo/taxol with radiation,chemo completed on 06/18/2022 and radiation completed 2 weeks later. He tolerated treatment with difficulties,had issues with dehydration,weakness,fatigue,he is slowly improving,keeping up with adequate oral hydration,remains weak,no mouth sore,no dysphagia,lost weight through his treatment,about 28 pounds. He has been admitted for syncopal episodes. He has completed chemo and radiation (x5) and required two outpatient IV hydration appointments for dehydration. Recent admission as well for dehydration and hypomagnesium. Review of Systems All systems: negative Constitutional: Reports as per HPI Past Medical History Past Medical History: Cancer, Diabetes Mellitus, Hyperlipidemia, Osteoarthritis (OA), Pneumonia, Skin Disorder, Syncope Additional Past Medical History / Comment(s): see Dr Maravilla H&P, hx skin cancer, dizziness-using a walker, has had a few falls recently History of Any Multi-Drug Resistant Organisms: None Reported Past Surgical History: Cardiac Valve Replacement, Coronary Bypass/CABG, Heart Catheterization, Joint Replacement, Orthopedic Surgery Additional Past Surgical History / Comment(s): kary hip replacements(multiple, each hip)+surgeries for post op infections, CABG and valve replacement, removal of skin cancer, Past Anesthesia/Blood Transfusion Reactions: No Reported Reaction Additional Past Anesthesia/Blood Transfusion Reaction / Comm: Pt has received blood transfusion without reaction. Smoking Status: Former smoker - Past Family History Mother Family Medical History: Deep Vein Thrombosis (DVT) Brother(s) Family Medical History: Diabetes Mellitus, Hyperlipidemia, Hypertension Son(s) Family Medical History: No Reported History Medications and Allergies Home Medications Medication Instructions Recorded Confirmed Type Insulin Glargine [Lantus Vial] 40 unit SQ BID 02/20/19 08/02/22 History metFORMIN HCL [Glucophage] 500 mg PO BID 02/20/19 08/02/22 History INSULIN LISPRO (humaLOG) [humaLOG] 15 units SQ BID 03/26/22 08/02/22 History Aspirin [[place] Aspirin EC] 81 mg PO DAILY 06/24/22 08/02/22 History Atorvastatin Calcium [Lipitor] 80 mg PO DAILY 06/24/22 08/02/22 History Cholecalciferol [Vitamin D3 (25 50 mcg PO DAILY 06/24/22 08/02/22 History Mcg = 1000 Iu)] Dulaglutide [Trulicity] 1.5 mg SQ MO 06/24/22 08/02/22 History HYDROcodone/APAP 5-325MG [[place] 1 tab PO Q4HR 06/24/22 08/02/22 History 5-325] Ondansetron [Zofran] 4 mg PO Q8HR PRN 06/24/22 08/02/22 History Pantoprazole Sodium [Protonix] 40 mg PO HS 06/24/22 08/02/22 History traMADol HCL 50 mg PO TID PRN 06/24/22 08/02/22 History Acetaminophen Tab [Tylenol] 650 mg PO Q6HR PRN tab 06/29/22 08/02/22 Rx Petrolatum, White [Aquaphor] 1 applic TOPICAL QID each 06/29/22 08/02/22 Rx Triamcinolone 0.1% Ointment 1 applic TOPICAL QID each 06/29/22 08/02/22 Rx [Kenalog 0.1% Ointment] Allergies Allergy/AdvReac Type Severity Reaction Status Date / Time Penicillins Allergy Rash/Hives/ Verified 08/02/22 14:33 SOB Physical Exam Vitals: Vital Signs Temp Pulse Pulse Pulse Pulse Resp BP 08/03/22 11:39 98.2 F 64 16 08/03/22 08:00 98.1 F 64 64 16 08/03/22 07:26 08/03/22 04:00 98.5 F 59 L 15 08/02/22 23:52 98.4 F 63 15 08/02/22 21:55 98.6 F 64 16 08/02/22 20:51 99.2 F 60 18 98/46 08/02/22 19:02 62 17 101/80 08/02/22 16:20 65 18 93/55 08/02/22 12:42 65 16 89/51 BP Pulse Ox 08/03/22 11:39 152/71 97 08/03/22 08:00 119/57 98 08/03/22 07:26 96 08/03/22 04:00 137/62 97 08/02/22 23:52 131/67 97 08/02/22 21:55 138/70 98 08/02/22 20:51 97 08/02/22 19:02 99 08/02/22 16:20 97 08/02/22 12:42 97 Intake and Output 08/02/22 08/03/22 08/03/22 22:59 06:59 14:59 Intake Total 615 600 118 Output Total 450 750 Balance 615 150 -632 Intake: Intake, IV Titration 75 600 Amount Sodium Chloride 0.9% 1, 75 600 000 ml @ 75 mls/hr IV . [id number] [facility] Rx#:[id number] Oral 540 118 Output: Urine 450 750 Other: Voiding Method Urinal Urinal Weight 103.419 kg - Constitutional General appearance: Present: cooperative, no acute distress, obese - EENT EENT Comment(s): dry mucous membranes Eyes: Present: anicteric sclerae, EOMI ENT: Present: hearing grossly normal - Respiratory Respiratory: bilateral: CTA - Cardiovascular Rhythm: regular Heart sounds: normal: S1, S2 Abnormal Heart Sounds: Absent: systolic murmur, diastolic murmur, rub, S3 Gallop, S4 Gallop, click, other - Peripheral edema leg Peripheral Edema: bilateral: Trace - Gastrointestinal General gastrointestinal: Present: normal bowel sounds, soft - Integumentary Integumentary: Present: normal turgor, pale - Neurologic Neurologic: Present: CNII-XII intact - Musculoskeletal Musculoskeletal: Present: strength equal bilaterally - Psychiatric Psychiatric: Present: A&O x's 3, appropriate affect, intact judgment & insight Results CBC & Chem 7: 08/02/22 12:53 08/03/22 10:52 Labs: Abnormal Lab Results - Last 24 Hours (Table) 08/02/22 08/02/22 08/02/22 Range/Units 12:53 12:53 12:53 RBC 3.68 L (4.30-5.90) m/uL Hgb 11.9 L (13.0-17.5) gm/dL Hct 36.2 L (39.0-53.0) % RDW 15.8 H (11.5-15.5) % APTT 31.0 H (22.0-30.0) sec Potassium (3.5-5.1) mmol/L BUN 26 H (9-20) mg/dL Creatinine 1.55 H (0.66-1.25) mg/dL Glucose 105 H (74-99) mg/dL POC Glucose (mg/dL) (70-110) mg/dL 08/02/22 08/03/22 08/03/22 Range/Units 22:08 08:18 10:52 RBC (4.30-5.90) m/uL Hgb (13.0-17.5) gm/dL Hct (39.0-53.0) % RDW (11.5-15.5) % APTT (22.0-30.0) sec Potassium 5.8 H (3.5-5.1) mmol/L BUN (9-20) mg/dL Creatinine (0.66-1.25) mg/dL Glucose 136 H (74-99) mg/dL POC Glucose (mg/dL) 154 H 138 H (70-110) mg/dL Assessment and Plan (1) Recurrent syncope Narrative/Plan: - Likely secondary to dehydration and a combination of autonomic dysfunction Patient has received hydration and supportive medications since admit. Dysphagia/odynophagia is improving slowly post treatment. Patient's diet will have to continue to be modified, with changes as he tolerates. Patient has a follow-up with early next week, mag level will be rechecked then. Should assess for autonomic dysfunction therefore a neurology and cardiology consult will be placed Current Visit: Yes Status: Acute Code(s): R55 - SYNCOPE AND COLLAPSE SNOMED Code(s): 997687352 (2) Squamous cell carcinoma of tonsil Narrative/Plan: Status post 5 cycle of chemo and radiation Current Visit: No Status: Chronic Priority: Medium Code(s): C09.9 - MALIGNANT NEOPLASM OF TONSIL, UNSPECIFIED SNOMED Code(s): 377728007 Plan: Dr. Llamas: I have completed the full history and physical and developed the above impression and plan, agree with dictation, dictated as a scribe
[2022-08-03 19:55] LABS: Glucose,Whole Blood 154 mg/dL (70-110)
[2022-08-03] MEDS: INSULIN ASPART (NovoLOG) 100 UNIT/ML VIAL SQ SCH (20:55)
[2022-08-03] MEDS: PANTOPRAZOLE 40 MG TABLET PO SCH (20:55)
[2022-08-04] MEDS: HYDROcodone/APAP 5-325MG 1 EACH TAB PO SCH ×6 (02:46→20:00)
[2022-08-04 05:56] LABS: Glucose,Whole Blood 83 mg/dL (70-110)
[2022-08-04] MEDS: metFORMIN 500 MG TAB PO SCH ×2 (07:11→17:01)
[2022-08-04 07:37] LABS: Basophils % (A) 0 %; Eosinophils # (A) 0.1 k/uL (0-0.7); Eosinophils % (A) 3 %; HCT 32.6 % (39.0-53.0); HGB 10.7 gm/dL (13.0-17.5); Hypochromasia Slight; Lymphocytes # (A) 0.8 k/uL (1.0-4.8); Lymphocytes % (A) 22 %; MCH 32.6 pg (25.0-35.0); MCHC 32.6 g/dL (31.0-37.0); Macrocytosis Slight; Mean Platelet Volume 7.3; Monocytes # (A) 0.3 k/uL (0-1.0); Monocytes % (A) 8 %; Neutrophils # (A) 2.2 k/uL (1.3-7.7); Neutrophils % (A) 64 %; Platelet Count 107 k/uL (150-450); Poikilocytosis Slight; RBC 3.27 m/uL (4.30-5.90); WBC 3.4 k/uL (3.8-10.6)
[2022-08-04] MEDS: SODIUM CHLORIDE 0.9% 1,000 ML IV SCH ×2 (08:02→18:23)
[2022-08-04] MEDS: CHOLECALCIFEROL 25 MCG (1000 IU) TABLET PO SCH (08:03)
[2022-08-04] MEDS: ATORVASTATIN 80 MG TAB PO SCH (08:03)
[2022-08-04] MEDS: INSULIN DETEMIR (LEVEMIR) 100 UNIT/ML SYR SQ SCH ×2 (08:03→21:35)
[2022-08-04] MEDS: ASPIRIN 81 MG PO SCH (08:03)
[2022-08-04 08:05] LABS: Calcium 8.8 mg/dL (8.4-10.2); Potassium 4.9 mmol/L (3.5-5.1)
[2022-08-04] MEDS: INSULIN ASPART (NovoLOG) 100 UNIT/ML VIAL SQ SCH ×2 (09:30→21:34)
--- NOTE | 2022-08-04 10:38 | P.CNNES ---
History of Present Illness Consult date: 08/04/22 Requesting physician: Caitlyn Thrasher Reason for Consult: syncope History of Present Illness: This is a 72-year-old with history of DM, throat cancer post chemo and radiation, CAD s/p CABG, Cardiac valve replacement who presented because of syncopal episodes. Cord to patient he stated that he is having the syncopal episode for the last 2-3 month and they can happen multiple times a day and they last about 2 minutes. He states that he cued that B the resting or with the standing up or moving and the episode he just loses consciousness but denies any foaming around the mouth, urinary or bowel incontinence, any jerk in the of any of the extremities and these episodes are witnessed. He denies any history of seizure. He states that he completed his chemoradiation about a month ago. He denies of any headache, denies of any focal weakness or numbness or difficulty getting her words out. On 08/02/2022 seems that he struck his head but again he denies of any headache or any injuries. Denies any auras prior to the episode. He stopped smoking more than 20 years ago and smoked for about 20 years. Denies any illicit drug use. Socially drinks alcohol. Some other workup during his hospital visit consisted of: Patient presented with a blood pressure of 77/41 and had episodes of blood pressure in the 80s systolic to 90s. Currently his blood pressure is drastically better. POC glucose on presentation was 99 and a creatinine is 1.55 BUN 26 otherwise rest was unremarkable. His kidney function improved. CT head is reported as age-related atrophy and chronic small vessel ischemic changes without acute intracranial process seen at this time. I personally reviewed the CT of the head and I agree with the report that there is no acute or subacute ischemia. I do not feel the patient has more atrophy than his age. EKG is reported as sinus rhythm. Left axis deviation. Anteroseptal myocardial infarction. Abnormal EKG. Of note patient had a PET scan in the beginning of May 2022 inch reported as primary neoplasm posterior right oropharynx well seen. No metastases disease identified or additional suspicious hypermetabolic lymph nodes. Review of Systems Review of system: The 12 point system was reviewed and apparent positive and negative per HPI. Past Medical History Past Medical History: Cancer, Diabetes Mellitus, Hyperlipidemia, Osteoarthritis (OA), Pneumonia, Skin Disorder, Syncope Additional Past Medical History / Comment(s): see Dr Maravilla H&P, hx skin cancer, dizziness-using a walker, has had a few falls recently History of Any Multi-Drug Resistant Organisms: None Reported Past Surgical History: Cardiac Valve Replacement, Coronary Bypass/CABG, Heart Catheterization, Joint Replacement, Orthopedic Surgery Additional Past Surgical History / Comment(s): kary hip replacements(multiple, each hip)+surgeries for post op infections, CABG and valve replacement, removal of skin cancer, Past Anesthesia/Blood Transfusion Reactions: No Reported Reaction Additional Past Anesthesia/Blood Transfusion Reaction / Comment(s): Pt has received blood transfusion without reaction. Smoking Status: Former smoker - Past Family History Mother Family Medical History: Deep Vein Thrombosis (DVT) Brother(s) Family Medical History: Diabetes Mellitus, Hyperlipidemia, Hypertension Son(s) Family Medical History: No Reported History Medications and Allergies Home Medications Medication Instructions Recorded Confirmed Type Insulin Glargine [Lantus Vial] 40 unit SQ BID 02/20/19 08/02/22 History metFORMIN HCL [Glucophage] 500 mg PO BID 02/20/19 08/02/22 History INSULIN LISPRO (humaLOG) [humaLOG] 15 units SQ BID 03/26/22 08/02/22 History Aspirin [[place] Aspirin EC] 81 mg PO DAILY 06/24/22 08/02/22 History Atorvastatin Calcium [Lipitor] 80 mg PO DAILY 06/24/22 08/02/22 History Cholecalciferol [Vitamin D3 (25 50 mcg PO DAILY 06/24/22 08/02/22 History Mcg = 1000 Iu)] Dulaglutide [Trulicity] 1.5 mg SQ MO 06/24/22 08/02/22 History HYDROcodone/APAP 5-325MG [[place] 1 tab PO Q4HR 06/24/22 08/02/22 History 5-325] Ondansetron [Zofran] 4 mg PO Q8HR PRN 06/24/22 08/02/22 History Pantoprazole Sodium [Protonix] 40 mg PO HS 06/24/22 08/02/22 History traMADol HCL 50 mg PO TID PRN 06/24/22 08/02/22 History Acetaminophen Tab [Tylenol] 650 mg PO Q6HR PRN tab 06/29/22 08/02/22 Rx Petrolatum, White [Aquaphor] 1 applic TOPICAL QID each 06/29/22 08/02/22 Rx Triamcinolone 0.1% Ointment 1 applic TOPICAL QID each 06/29/22 08/02/22 Rx [Kenalog 0.1% Ointment] Allergies Allergy/AdvReac Type Severity Reaction Status Date / Time Penicillins Allergy Rash/Hives/ Verified 08/02/22 14:33 SOB Physical Examination - Vital Signs Vital Signs: Vital Signs Temp Pulse Pulse Pulse Resp BP Pulse Ox 08/04/22 07:59 98.4 F 70 16 127/59 98 08/04/22 04:00 98.2 F 65 16 142/69 99 08/03/22 23:44 98.1 F 66 16 125/67 96 08/03/22 20:00 97.9 F 63 16 147/71 99 08/03/22 16:45 98 F 65 18 133/62 98 08/03/22 11:39 98.2 F 64 16 152/71 97 Intake and Output 08/03/22 08/04/22 08/04/22 22:59 06:59 14:59 Intake Total 840 236 Output Total 325 350 Balance 515 -350 236 Intake: Oral 840 236 Output: Urine 325 350 Other: Voiding Method Urinal Urinal GENERAL: The patient is lying in bed and is not in acute distress. CHEST: The heart rate is regular rate rhythm. No murmurs to auscultation. LUNG: Clear to auscultation bilaterally no wheezing noted throughout. Not labored breathing. ABDOMEN/GI: Bowel sounds present in all 4 quadrants. No tenderness to palpation throughout. NEUROLOGICAL: Higher mental function: The patient is awake, alert, oriented to self, place and time. Patient is following commands. No aphasia and no neglect. Cranial nerves: The pupils are round, equal and reactive to light and accommodation. Visual stein are full to confrontation throughout. Extraocular movement is intact no nystagmus is noted. Facial sensation is normal to touch throughout. The facial strength is normal throughout. Hearing is normal bilaterally to hand rub. Tongue is midline and moved [id number] without any difficulty. No dysarthria is noted. Shoulder shrug is normal bilaterally. Motor: The strength is 5 over 5 throughout. Normal tone and bulk. Cerebellum: Normal finger to nose bilaterally. Sensation: Sensation is normal to touch throughout. Reflexes (right/left): 2+ throughout. Plantars are downgoing bilaterally. Results - Laboratory Findings CBC and BMP: 08/04/22 07:04 08/04/22 07:04 Abnormal Lab Findings: Abnormal Labs 08/02/22 08/02/22 08/02/22 12:53 12:53 12:53 WBC RBC 3.68 L Hgb 11.9 L Hct 36.2 L RDW 15.8 H Plt Count Lymphocytes # APTT 31.0 H Potassium BUN 26 H Creatinine 1.55 H Glucose 105 H POC Glucose (mg/dL) 08/02/22 08/03/22 08/03/22 22:08 08:18 10:52 WBC RBC Hgb Hct RDW Plt Count Lymphocytes # APTT Potassium 5.8 H BUN Creatinine Glucose 136 H POC Glucose (mg/dL) 154 H 138 H 08/03/22 08/03/22 08/04/22 16:50 19:53 07:04 WBC 3.4 L RBC 3.27 L Hgb 10.7 L Hct 32.6 L RDW Plt Count 107 L Lymphocytes # 0.8 L APTT Potassium BUN Creatinine Glucose POC Glucose (mg/dL) 158 H 154 H Assessment and Plan Assessment: Recurrent Syncopal episodes: On this presentation seems due to hypotensive (presented with systolic blood pressure in 70's). Unlikely seizure (denies witnessed jerking of extremities, urinary or bowel incontinence, tongue bite). History of throat cancer post chemo and radiation and completed radiation about a month ago Hypotensive episode--resolved History of CAD s/p CABG History of Cardiac valve replacement Remote tobacco use Plan: I ordered a routine EEG which will not be done until this Saturday. Again unlikely this is a seizure episode and likely due to hypertensive episode Ordered carotid duplex. Pending orthostatic vitals Recommend MRI of the brain with and without to rule out any brain metastases and this can be done as an outpatient. Patient had a PET scan in May 2022 which was negative for any metastases. Cardiology is on board Oncology team is on board Defer the rest of the medical management to primary team The plan is discussed with the patient and cardiology team. Thank you for the consultation. Alex Granda M.D. Neuro-hospitalist Time with Patient: Greater than 30
[2022-08-04 11:41] LABS: Glucose,Whole Blood 108 mg/dL (70-110)
[2022-08-04] MEDS: MIDODRINE 5 MG TAB PO SCH ×2 (12:46→17:01)
--- NOTE | 2022-08-04 13:20 | US ---
EXAMINATION TYPE: US carotid duplex BILAT DATE OF EXAM: 08/04/2022 COMPARISON: NONE CLINICAL HISTORY: syncope. fell, no h/o stroke TECHNIQUE: Carotid duplex ultrasound examination. Indirect Doppler criteria was utilized. FINDINGS: EXAM MEASUREMENTS: RIGHT: Peak Systolic Velocity (PSV) cm/sec ----- Right CCA: 74.7 ----- Right ICA: 140.0 ----- Right ECA: 128 ICA/CCA ratio: 1.8 RIGHT: End Diastole cm/sec ----- Right CCA: 13.0 ----- Right ICA: 32.0 ----- Right ECA: 13.6 LEFT: Peak Systolic Velocity (PSV) cm/sec ----- Left CCA: 129 ----- Left ICA: 184 ----- Left ECA: 105 ICA/CCA ratio: 1.4 LEFT: End Diastole cm/sec ----- Left CCA: 13.9 ----- Left ICA: 30.6 ----- Left ECA: 0.0 VERTEBRALS (direction of flow): Right Vertebral: Antegrade Left Vertebral: not seen Rhythm: Normal [place] NOTES: Heterogeneous plaque at bilateral bulbs with no significant stenosis seen. IMPRESSION: 1. Less than 50% stenosis of the right carotid bifurcations. 2. 50-69% stenosis of the left carotid bifurcation by peak systolic velocity. Criteria for Assigning % of Stenosis / Diameter reduction (Estimation based on the indirect measurements of the internal carotid artery velocities (ICA PSV). 1. Normal (no stenosis)=ICA PSV < 125 cm/s: ratio < 2.0: ICA EDV<40 cm/s. 2. Less than 50% stenosis=ICA PSV < 125 cm/s: ratio < 2.0: ICA EDV<40 cm/s. 3. 50 to 69% stenosis=ICA PSV of 125 to 230 cm/s: ration 2.0 ? 4.0: ICA EDV 40-100 cm/s. 4. Greater than 70% stenosis to near occlusion= ICA PSV > 230 cm/s: ratio > 4.0: ICA EDV > 100 cm/s. 5. Near occlusion= ICA PSV velocities may be low or undetectable: variable ratio and ICA EDV. 6. Total occlusion=unable to detect flow.
[2022-08-04 16:47] LABS: Glucose,Whole Blood 111 mg/dL (70-110)
[2022-08-04 19:42] LABS: Glucose,Whole Blood 142 mg/dL (70-110)
[2022-08-04] MEDS: PANTOPRAZOLE 40 MG TABLET PO SCH (21:35)
--- NOTE | 2022-08-04 22:22 | CONS ---
CONSULTATION This is a cardiology consultation note. CHIEF COMPLAINT: Syncope. HISTORY OF PRESENT ILLNESS: Mr. Morales is a 72-year-old gentleman, who has had recurrent episodes of syncope and comes to hospital having had an episode of syncope at home. The patient has history of throat cancer, status post chemoradiation; CAD, status post bypass surgery, status post aortic valve replacement. He comes in having had an episode of syncope at home. This happened as he got up from a lying down position and was associated with transient loss of consciousness. There was no bladder or bowel incontinence and no seizure disorder. He has had a similar episode several times in the last 2-3 months and the last one in fact happened when [place] was [place]. When he first arrived in the emergency room, his blood pressure was 77/40. It is very likely that the syncopal episodes are related to orthostatic hypotension. He received IV fluids and since being admitted his blood pressure has improved and he is feeling very well. At the time of my evaluation, patient appears comfortable at rest and is free of significant symptoms. I started the patient on midodrine and hopefully this will help him with his symptoms. An EKG on this admission revealed sinus rhythm, left axis deviation, and evidence of prior anteroseptal myocardial infarction. His hemoglobin is 10.7, BUN is 18, creatinine is 1. Troponins are negative. PAST MEDICAL HISTORY: Significant for throat cancer, [id number] diabetes, dyslipidemia. MEDICATIONS: Medications at home included: 1. Protonix. 2. Glucophage. 3. Zofran. 4. Insulin. 5. Trulicity. 6. Lipitor. 7. Aspirin. ALLERGIES: Penicillin. FAMILY HISTORY: Negative for premature coronary artery disease. SOCIAL HISTORY: Negative for current smoking, ETOH abuse or drug abuse. REVIEW OF SYSTEMS: review of systems has been performed, pertinents are as documented. The patient has had recurrent syncopal events and he normally ambulates with a walker or in a wheelchair. PHYSICAL EXAMINATION: GENERAL: Comfortable at rest. VITAL SIGNS: Heart rate 70 beats per minute. Blood pressure is 127/50, respiratory rate 18, O2 saturation is 98% on room air. NECK: There is no jugular venous distention. Carotid upstroke is diminished. There is no bruit. CHEST: Reveals good air entry bilaterally. There are no crackles or rhonchi. HEART: Reveals first and second heart sounds and an ejection systolic murmur in the aortic area. ABDOMEN: Soft. EXTREMITIES: Did not reveal any edema. Peripheral pulses are felt. ASSESSMENT AND PLAN: 1. Syncope, probably vasovagal in origin. 2. History of throat cancer, status post chemoradiation. 3. Coronary artery disease, status post CABG, status post valve replacement. 4. Diabetes. PLAN: The patient's syncopal event could be vasovagal, either related to the throat cancer with chemoradiation or from intravascular volume depletion. I am going to obtain a 2D echo to evaluate his LV function and the prosthetic valve. I do not have any of his cardiac surgery records with me. I am going to start him on midodrine, and I am hoping that this will help him with his symptoms. MMETHANL / NINFAN: [id number] /
[2022-08-05] MEDS: HYDROcodone/APAP 5-325MG 1 EACH TAB PO SCH ×6 (05:30→19:58)
[2022-08-05 05:54] LABS: Glucose,Whole Blood 80 mg/dL (70-110)
[2022-08-05] MEDS: MIDODRINE 5 MG TAB PO SCH ×2 (06:52→16:59)
[2022-08-05] MEDS: metFORMIN 500 MG TAB PO SCH ×2 (06:53→16:59)
[2022-08-05] MEDS: ATORVASTATIN 80 MG TAB PO SCH (08:30)
[2022-08-05] MEDS: INSULIN DETEMIR (LEVEMIR) 100 UNIT/ML SYR SQ SCH ×2 (08:30→19:59)
[2022-08-05] MEDS: ASPIRIN 81 MG PO SCH (08:30)
[2022-08-05] MEDS: CHOLECALCIFEROL 25 MCG (1000 IU) TABLET PO SCH (08:30)
[2022-08-05] MEDS: SODIUM CHLORIDE 0.9% 1,000 ML IV SCH (08:31)
[2022-08-05] MEDS: INSULIN ASPART (NovoLOG) 100 UNIT/ML VIAL SQ SCH ×2 (08:32→19:59)
--- NOTE | 2022-08-05 11:59 | P.PN ---
Subjective Progress Note Date: 08/05/22 The patient is seen at bedside in no further syncopal episodes. He feels about the same. Objective - Vital Signs Vital signs: Vital Signs Temp 98.3 F 08/05/22 08:27 Pulse 67 08/05/22 11:46 Resp 18 08/05/22 11:46 BP 115/53 08/05/22 11:46 Pulse Ox 97 08/05/22 11:46 FiO2 Intake & Output 08/04/22 08/05/22 08/05/22 18:59 06:59 18:59 Intake Total 915.5 900 615 Output Total 575 1150 200 Balance 340.5 -250 415 Intake: Intake, IV Titration 262.5 900 375 Amount Sodium Chloride 0.9% 1, 262.5 900 375 000 ml @ 75 mls/hr IV . [id number] GAETANO Rx#:[id number] Oral 653 240 Output: Urine 575 1150 200 Other: Voiding Method Urinal Urinal Urinal # Bowel Movements 1 - Exam GENERAL: The patient is lying in bed and is not in acute distress. NEUROLOGICAL: Higher mental function: The patient is awake, alert, oriented to self, place and time. Patient is following commands. No aphasia and no neglect. Cranial nerves: The pupils are round, equal and reactive to light and accommodation. Visual stein are full to confrontation throughout. Extraocular movement is intact no nystagmus is noted. Facial sensation is normal to touch throughout. The facial strength is normal throughout. Hearing is normal bilaterally to hand rub. Tongue is midline and moved [id number] without any difficulty. No dysarthria is noted. Shoulder shrug is normal bilaterally. Motor: The strength is 5 over 5 throughout. Normal tone and bulk. Cerebellum: Normal finger to nose bilaterally. Sensation: Sensation is normal to touch throughout. Reflexes (right/left): 2+ throughout. Plantars are downgoing bilaterally. Some other workup during his hospital visit consisted of: Orthostatic vitals is for time and was performed seems positive since the supine blood pressure was 141/63 with the sitting is 110/54 and standing is 119/56. But repeated supine blood pressure of 133/62 sitting is 114/67 and standing is 117/59 which seems negative. Patient presented with a blood pressure of 77/41 and had episodes of blood pressure in the 80s systolic to 90s. Currently his blood pressure is drast ically better. POC glucose on presentation was 99 and a creatinine is 1.55 BUN 26 otherwise rest was unremarkable. His kidney function improved. CT head is reported as age-related atrophy and chronic small vessel ischemic changes without acute intracranial process seen at this time. I personally r eviewed the CT of the head and I agree with the report that there is no acute or subacute ischemia. I do not feel the patient has more atrophy than his age. EKG is reported as sinus rhythm. Left axis deviation. Anteroseptal myocardial infarction. Abnormal EKG. Carotid duplex is reported as less than 50% stenosis of the right carotid bifurcation. 50-69% stenosis of the left carotid bifurcation by peak systolic velocity. Of note patient had a PET scan in the beginning of May 2022 inch reported as primary neoplasm posterior right oropharynx well seen. No metastases disease identified or additional suspicious hypermetabolic lymph nodes. - Labs CBC & Chem 7: 08/04/22 07:04 08/04/22 07:04 Labs: Abnormal Lab Results - Last 24 Hours (Table) 08/04/22 08/04/22 Range/Units 16:46 19:40 POC Glucose (mg/dL) 111 H 142 H (70-110) mg/dL Assessment and Plan Assessment: Recurrent Syncopal episodes: On this presentation seems due to hypotensive (presented with systolic blood pressure in 70's). Unlikely seizure (denies witnessed jerking of extremities, urinary or bowel incontinence, tongue bite). And appears positive for orthostatic (on first orthostatic). Left caortid stenosis 50-69% as per duplex and unlikely would explain above History of throat cancer post chemo and radiation and completed radiation about a month ago Hypotensive episode--resolved History of CAD s/p CABG History of Cardiac valve replacement Remote tobacco use Plan: I ordered a routine EEG which will not be done until this Saturday. Again unlikely this is a seizure episode and likely due to hypertensive episode Left caortid stenosis 50-69% as per duplex and unlikely would explain above. I will pursue CTA neck and if has moderate to significant stenosis recommend vascular surgery team. Recommend repeat orthostatic vitals. It seems has positive ortho on first try and repeated negative. If positive again recommend compression stocking. If medication needed consider Florinef 0.1mg 1 bid but will defer final management to primary and cardiology team. Recommend MRI of the brain with and without to rule out any brain metastases and this can be done as an outpatient. Patient had a PET scan in May 2022 which was negative for any metastases. Cardiology is on board Oncology team is on board Defer the rest of the medical management to primary team The plan is discussed with the patient. Dr. Sparks will start neurology service tomorrow Celia Granda M.D. Neuro-hospitalist Time with Patient: Less than 30
[2022-08-05 12:24] LABS: Glucose,Whole Blood 75 mg/dL (70-110)
[2022-08-05 12:24] LABS: Glucose,Whole Blood 63 mg/dL (70-110)
--- NOTE | 2022-08-05 13:54 | P.PN ---
Subjective Progress Note Date: 08/05/22 Patient is seen resting comfortably in bed in no signs of acute distress. He denies chest pain, or increased shortness of breath. He denies any further episodes of dizziness or syncope. Echocardiogram has been ordered. Patient was started on midodrine yesterday. Blood pressure today is 133/63. Patient will undergo possible EEG tomorrow to assess her seizure activity. Syncope is believed to be noncardiac in origin, secondary to vasovagal or seizure activity Objective - Vital Signs Vital signs: Vital Signs Temp 98.3 F 08/05/22 08:27 Pulse 67 08/05/22 11:46 Resp 18 08/05/22 11:46 BP 110/59 08/05/22 12:43 Pulse Ox 97 08/05/22 11:46 FiO2 Intake & Output 08/04/22 08/05/22 08/05/22 18:59 06:59 18:59 Intake Total 915.5 900 615 Output Total 575 1150 200 Balance 340.5 -250 415 Intake: Intake, IV Titration 262.5 900 375 Amount Sodium Chloride 0.9% 1, 262.5 900 375 000 ml @ 75 mls/hr IV . [id number] GAETANO Rx#:[id number] Oral 653 240 Output: Urine 575 1150 200 Other: Voiding Method Urinal Urinal Urinal # Bowel Movements 1 - Exam PHYSICAL EXAM: VITAL SIGNS: Reviewed. GENERAL: Well-developed in no acute distress. HEENT: Head is normocephalic. Pupils are equal, round. Sclerae anicteric. Mucous membranes of the mouth are moist. NECK: Supple. No JVD or thyromegaly RESPIRATORY: Respirations even and unlabored. Lungs diminished to auscultation bilaterally. CARDIO: Regular rate and rhythm. S1 and S2 heard. No murmur or gallops. EXTREMITIES: Normal range of motion. No clubbing or cyanosis. Peripheral pulses intact. Negative for bilateral lower extremity edema NEURO: Orientated to person, time, mood is appropriate - Labs CBC & Chem 7: 08/04/22 07:04 08/04/22 07:04 Labs: Abnormal Lab Results - Last 24 Hours (Table) 08/04/22 08/04/22 08/05/22 Range/Units 16:46 19:40 12:06 POC Glucose (mg/dL) 111 H 142 H 63 L (70-110) mg/dL Assessment and Plan Assessment: Syncope, probably vasovagal in origin History of throat cancer, status post chemoradiation Coronary artery disease status post CABG, status post valve replacement Diabetes Plan: Continue with all current cardiac medications 2-D echocardiogram ordered Continue with nitrogen Continue with cardiac monitoring Further recommendations based on clinical course The above impression and plan of care have been discussed and directed by the signing physician. Laura Prince, nurse practitioner, acting as scribe for signing physician.
[2022-08-05 16:51] LABS: Glucose,Whole Blood 157 mg/dL (70-110)
--- NOTE | 2022-08-05 17:27 | CT ---
EXAMINATION TYPE: CT angio neck DATE OF EXAM: 08/05/2022 COMPARISON: None HISTORY: left corotid stenosis CT DLP: 818.6 mGycm Automated exposure control for dose reduction was used. CONTRAST: Performed with IV Contrast, patient injected with 65 mL of Isovue 370. Images obtained from the aortic arch to the skull base with the IV contrast. There are 3-D post proce ssed images. There is normal branching pattern of the great vessels off the aortic arch. There is atheromatous rui nges at the aortic arch. There is arterial flow in both subclavian arteries. There is arterial flow i n the common internal and external carotid arteries bilaterally. There is subtotal occlusion at the o rigin of the left internal carotid artery due to plaque formation. There is moderate plaque at the right carotid artery bifurcation and approximate 50% stenosis. There is arterial flow in both vertebral arteries. Left vertebral artery is larger than the right. Th ere is arterial flow in the vertebrobasilar artery system. There is arterial flow in both distal inte rnal carotid arteries to the pala of [place]i. There is normal enhancement of the venous sinuses. IMPRESSION: Subtotal occlusion due to plaque formation at the origin left internal carotid artery. 50% stenosis o f the origin right internal carotid artery.
[2022-08-05 19:46] LABS: Glucose,Whole Blood 147 mg/dL (70-110)
[2022-08-05] MEDS: PANTOPRAZOLE 40 MG TABLET PO SCH (19:58)
[2022-08-06] MEDS: SODIUM CHLORIDE 0.9% 1,000 ML IV SCH ×2 (00:03→14:23)
[2022-08-06] MEDS: HYDROcodone/APAP 5-325MG 1 EACH TAB PO SCH ×5 (00:04→16:41)
[2022-08-06 06:17] LABS: Glucose,Whole Blood 75 mg/dL (70-110)
[2022-08-06] MEDS: INSULIN DETEMIR (LEVEMIR) 100 UNIT/ML SYR SQ SCH (06:32)
[2022-08-06] MEDS: MIDODRINE 5 MG TAB PO SCH ×3 (06:32→16:44)
[2022-08-06] MEDS: metFORMIN 500 MG TAB PO SCH ×2 (06:32→16:41)
[2022-08-06] MEDS ORDERED: NON FORMULARY DRUG (Dulaglutide [Trulicity] 1.5 MG/0.5 ML Each) SQ SCH (09:00)
[2022-08-06 09:32] VITALS: RESP 18; TEMP 98.5
[2022-08-06] MEDS: ATORVASTATIN 80 MG TAB PO SCH (09:32)
[2022-08-06] MEDS: ASPIRIN 81 MG PO SCH (09:32)
[2022-08-06] MEDS: CHOLECALCIFEROL 25 MCG (1000 IU) TABLET PO SCH (09:32)
[2022-08-06 09:41] LABS: Glucose,Whole Blood 191 mg/dL (70-110)
[2022-08-06] MEDS: INSULIN ASPART (NovoLOG) 100 UNIT/ML VIAL SQ SCH (09:43)
--- NOTE | 2022-08-06 10:30 | CA ---
Transthoracic Echo Report Name: Nick Morales Age: 72 Gender: M : 1950 Exam Date: 08/06/2022 09:23 Exam Location: [facility] Ht (in): 71 Wt (lb): 228 Ordering Physician: Laura Prince Attending/Referring Phys: Manager Pricing Sonia Knox RDCS Procedure CPT: Indications: Syncope Cardiac Hx: Technical Quality: Fair Contrast 1: Total Dose (mL): Contrast 2: Total Dose (mL): MEASUREMENTS (Male / Female) Normal Values 2D ECHO LV Diastolic Diameter PLAX 4.5 cm 4.2 - 5.9 / 3.9 - 5.3 cm LV Systolic Diameter PLAX 2.8 cm IVS Diastolic Thickness 1.3 cm 0.6 - 1.0 / 0.6 - 0.9 cm LVPW Diastolic Thickness 1.2 cm 0.6 - 1.0 / 0.6 - 0.9 cm LV Relative Wall Thickness 0.6 RV Internal Dim ED PLAX 3.6 cm LA Systolic Diameter LX 3.6 cm 3.0 - 4.0 / 2.7 - 3.8 cm LA Volume 50.7 cm??? 18 - 58 / 22 - 52 cm??? M-MODE Aortic Root Diameter MM 2.6 cm MV E Point Septal Separation 0.4 cm DOPPLER AV Peak Velocity 220.7 cm/s AV Peak Gradient 19.5 mmHg AV Mean Velocity 152.7 cm/s AV Mean Gradient 10.8 mmHg AV Velocity Time Integral 48.6 cm LVOT Peak Velocity 84.7 cm/s LVOT Peak Gradient 2.9 mmHg MV Area PHT 3.0 cm??? Mitral E Point Velocity 97.1 cm/s Mitral A Point Velocity 114.4 cm/s Mitral E to A Ratio 0.8 MV Deceleration Time 255.2 ms MV E' Velocity 6.5 cm/s Mitral E to MV E' Ratio 15.0 TR Peak Velocity 242.3 cm/s TR Peak Gradient 23.5 mmHg Right Ventricular Systolic Press 28.5 mmHg FINDINGS Left Ventricle Left ventricular ejection fraction is estimated at 55-60 %. Left ventricular cavity size normal. Mild concentric left ventricular hypertrophy. Right Ventricle Mild right ventricular dilatation. Right ventricular systolic pressure within normal limits. Right Atrium Normal right atrial size. Left Atrium Normal left atrial size. Mitral Valve Mitral annular calcification. No mitral stenosis, or prolapse.mild mitral regurgitation. Aortic Valve Mild aortic stenosis with a peak gradient of 20 mmHg and a mean gradient of 11 mmHg.aortic valve sclerosis. Tricuspid Valve Mild tricuspid regurgitation.structurally normal tricuspid valve. Pulmonic Valve Pulmonic valve not well visualized. Pericardium Normal pericardium. No pericardial effusion. Aorta Normal size aortic root and proximal ascending aorta. CONCLUSIONS 1. Normal left ventricle size and systolic function 2. Mild mitral and tricuspid regurgitation 3. Mild aortic stenosis Previewed by: Dr. Radha Gallagher MD (Electronically Signed) Final Date: 06 August 2022 10:29
--- NOTE | 2022-08-06 11:03 | P.PN ---
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 Patient says that he has not been taking very well at home. Decreased appetite. Denied any head injury. No complaints of vomiting. He does have nausea. No chest pain or shortness breath. No fever no chills. No leg swelling. CT head showed is related to be and chronic small vessel ischemic changes without intracranial process. EKG showed normal sinus rhythm with left axis deviation. Patient was hypotensive on admission blood pressure 77/41. Laboratory data showed WBC 6.0 hemoglobin 11.9 and platelets 179 Sodium 139 potassium 4.9 chloride 101 bicarb is 23 BUN 26 and creatinine 1.55 and blood sugar 105 Liver enzymes are not elevated. Troponin 3 negative. 08/03/2022 Patient is currently resting in bed. Awake alert and oriented 3. Still complains of dizziness when attempts to to get up. No fever no chills. No headache. Patient is able to tolerate some oral diet today. Blood pressure did improve. Patient is being going on IV hydration. Blood pressure medications on hold. Blood sugar is fairly controlled. No nausea vomiting abdominal pain diarrhea. PT OT was consulted for possible rehab transfer. Laboratory data showed sodium 139 potassium 5.8 chloride 106. Repeat potassium 4.6 BUN 20 and creatinine 1.22 and calcium 8.7 Current medications reviewed. Objective - Vital Signs Vital signs: Vital Signs Temp 97.9 F 08/03/22 20:00 Pulse 63 08/03/22 20:00 Resp 16 08/03/22 20:00 BP 147/71 08/03/22 20:00 Pulse Ox 99 08/03/22 20:00 FiO2 Intake & Output 08/03/22 08/03/22 08/04/22 06:59 18:59 06:59 Intake Total 1215 958 Output Total 450 1075 Balance 765 -117 Weight 103.419 kg Intake: Intake, IV Titration 675 Amount Sodium Chloride 0.9% 1, 675 000 ml @ 75 mls/hr IV . [id number] [facility] Rx#:[id number] Oral 540 958 Output: Urine 450 1075 Other: Voiding Method Urinal Urinal Urinal - Exam PHYSICAL EXAMINATION: Patient is lying in the bed comfortably, no acute distress, awake alert and oriented.. HEENT: Normocephalic. Neck is supple. Pupils reactive. Nostrils clear. Oral cavity is moist. Neck reveals no JVD, carotid bruits, or thyromegaly. CHEST EXAMINATION: Trachea is central. Symmetrical expansion. Lung stein clear to auscultation and percussion. CARDIAC: Normal S1, S2 with no gallops. No murmurs ABDOMEN: Soft. Bowel sounds present. Nontender. No organomegaly. No abdominal bruits. Extremities: reveal no edema. No clubbing or cyanosis Neurologically awake, alert, oriented x3 with well-coordinated movements. No focal deficits noted Skin: No rash or skin lesions. Psychiatric: Coperative. Nonsuicidal, Musculoskeletal: No joint swelling or deformity. Normal range of motion. - Labs CBC & Chem 7: 08/04/22 07:04 08/04/22 07:04 Labs: Abnormal Lab Results - Last 24 Hours (Table) 08/03/22 08/03/22 08/03/22 Range/Units 08:18 10:52 16:50 Potassium 5.8 H (3.5-5.1) mmol/L Glucose 136 H (74-99) mg/dL POC Glucose (mg/dL) 138 H 158 H (70-110) mg/dL 08/03/22 Range/Units 19:53 Potassium (3.5-5.1) mmol/L Glucose (74-99) mg/dL POC Glucose (mg/dL) 154 H (70-110) mg/dL
--- NOTE | 2022-08-06 11:06 | P.PN ---
Subjective Progress Note Date: 08/04/22 Principal diagnosis: Syncope and fall Patient is a 72-year-old male with a known history of right tonsillar squamous cell carcinoma and recent chemotherapy, hyperlipidemia, diabetes type 2 insulin- dependent, osteoarthritis, coronary artery disease history of CABG, history of cardiac valve replacement and prior history of smoking presents to ER with complaints of generalized weakness and frequent falls and syncopal episode. Patient says that he has not been taking very well at home. Decreased appetite. Denied any head injury. No complaints of vomiting. He does have nausea. No chest pain or shortness breath. No fever no chills. No leg swelling. CT head showed is related to be and chronic small vessel ischemic changes without intracranial process. EKG showed normal sinus rhythm with left axis deviation. Patient was hypotensive on admission blood pressure 77/41. Laboratory data showed WBC 6.0 hemoglobin 11.9 and platelets 179 Sodium 139 potassium 4.9 chloride 101 bicarb is 23 BUN 26 and creatinine 1.55 and blood sugar 105 Liver enzymes are not elevated. Troponin 3 negative. 08/03/2022 Patient is currently resting in bed. Awake alert and oriented 3. Still complains of dizziness when attempts to to get up. No fever no chills. No headache. Patient is able to tolerate some oral diet today. Blood pressure did improve. Patient is being going on IV hydration. Blood pressure medications on hold. Blood sugar is fairly controlled. No nausea vomiting abdominal pain diarrhea. PT OT was consulted for possible rehab transfer. Laboratory data showed sodium 139 potassium 5.8 chloride 106. Repeat potassium 4.6 BUN 20 and creatinine 1.22 and calcium 8.7 08/04/2022 Patient is currently resting in the bed. Awake alert and oriented 3. She complains of generalized weakness. Dizziness did improve. Patient was started on Midodrin as per cardiology recommendations and 2-D echocardiogram is pending. Blood pressure did improve. Patient is tolerating oral diet. Next and no fever no chills. No cough or sputum production. Denied any dysuria or hematuria. Laboratory data showed bowel was 3.4 hemoglobin 10.7 platelets 107 Sodium 139 potassium 4.9 chloride 106 bicarb is 25 BUN 18 and creatinine 1.05 Cardiology and neurology is on board. Current medications reviewed. Objective - Vital Signs Vital signs: Vital Signs Temp 98.1 F 08/04/22 20:00 Pulse 76 08/04/22 20:00 Resp 17 10/01/22 20:00 BP 117/59 08/04/22 20:00 Pulse Ox 99 08/04/22 20:00 FiO2 Intake & Output 08/04/22 08/04/22 08/05/22 06:59 18:59 06:59 Intake Total 915.5 Output Total 350 575 Balance -350 340.5 Intake: Intake, IV Titration 262.5 Amount Sodium Chloride 0.9% 1, 262.5 000 ml @ 75 mls/hr IV . [id number] [facility] Rx#:[id number] Oral 653 Output: Urine 350 575 Other: Voiding Method Urinal Urinal - Exam PHYSICAL EXAMINATION: Patient is lying in the bed comfortably, no acute distress, awake alert and oriented.. HEENT: Normocephalic. Neck is supple. Pupils reactive. Nostrils clear. Oral cavity is moist. Neck reveals no JVD, carotid bruits, or thyromegaly. CHEST EXAMINATION: Trachea is central. Symmetrical expansion. Lung stein clear to auscultation and percussion. CARDIAC: Normal S1, S2 with no gallops. No murmurs ABDOMEN: Soft. Bowel sounds present. Nontender. No organomegaly. No abdominal bruits. Extremities: reveal no edema. No clubbing or cyanosis Neurologically awake, alert, oriented x3 with well-coordinated movements. No focal deficits noted Skin: No rash or skin lesions. Psychiatric: Coperative. Nonsuicidal, Musculoskeletal: No joint swelling or deformity. Normal range of motion. - Labs CBC & Chem 7: 08/04/22 07:04 08/04/22 07:04 Labs: Abnormal Lab Results - Last 24 Hours (Table) 08/04/22 08/04/22 08/04/22 Range/Units 07:04 16:46 19:40 WBC 3.4 L (3.8-10.6) k/uL RBC 3.27 L (4.30-5.90) m/uL Hgb 10.7 L (13.0-17.5) gm/dL Hct 32.6 L (39.0-53.0) % Plt Count 107 L (150-450) k/uL Lymphocytes # 0.8 L (1.0-4.8) k/uL POC Glucose (mg/dL) 111 H 142 H (70-110) mg/dL Assessment and Plan Assessment: Acute syncopal episode likely due to orthostatic hypotension. Rule out seizures. Generalized weakness and frequent falls due to poor oral intake, dehydration and volume depletion. Right tonsillar squamous cell carcinoma with recent chemotherapy Chemotherapy-induced pancytopenia, Hypomagnesemia Diabetes type 2 insulin-dependent Hyperlipidemia History of skin cancer Coronary artery history of CABG and cardiac valve replacement Prior history of smoking DVT prophylaxis with Lovenox subcu Plan: Patient be continued on IV hydration. Blood pressure did improve. Patient was started on Midodrin. 2-D echocardiogram report pending. Cardiology was consulted due to his multiple syncopal episodes. Neurology is on board. Carotid duplex showed 50-69% stenosis. Recommends MRI of the brain without and without contrast to rule out any brain metastasis. Replace electrolytes and follow up closely. Time with Patient: Greater than 30
--- NOTE | 2022-08-06 11:10 | P.PN ---
Subjective Progress Note Date: 08/05/22 Principal diagnosis: Syncope and fall Patient is a 72-year-old male with a known history of right tonsillar squamous cell carcinoma and recent chemotherapy, hyperlipidemia, diabetes type 2 insulin- dependent, osteoarthritis, coronary artery disease history of CABG, history of cardiac valve replacement and prior history of smoking presents to ER with complaints of generalized weakness and frequent falls and syncopal episode. Patient says that he has not been taking very well at home. Decreased appetite. Denied any head injury. No complaints of vomiting. He does have nausea. No chest pain or shortness breath. No fever no chills. No leg swelling. CT head showed is related to be and chronic small vessel ischemic changes without intracranial process. EKG showed normal sinus rhythm with left axis deviation. Patient was hypotensive on admission blood pressure 77/41. Laboratory data showed WBC 6.0 hemoglobin 11.9 and platelets 179 Sodium 139 potassium 4.9 chloride 101 bicarb is 23 BUN 26 and creatinine 1.55 and blood sugar 105 Liver enzymes are not elevated. Troponin 3 negative. 08/03/2022 Patient is currently resting in bed. Awake alert and oriented 3. Still complains of dizziness when attempts to to get up. No fever no chills. No headache. Patient is able to tolerate some oral diet today. Blood pressure did improve. Patient is being going on IV hydration. Blood pressure medications on hold. Blood sugar is fairly controlled. No nausea vomiting abdominal pain diarrhea. PT OT was consulted for possible rehab transfer. Laboratory data showed sodium 139 potassium 5.8 chloride 106. Repeat potassium 4.6 BUN 20 and creatinine 1.22 and calcium 8.7 08/04/2022 Patient is currently resting in the bed. Awake alert and oriented 3. She complains of generalized weakness. Dizziness did improve. Patient was started on Midodrin as per cardiology recommendations and 2-D echocardiogram is pending. Blood pressure did improve. Patient is tolerating oral diet. Next and no fever no chills. No cough or sputum production. Denied any dysuria or hematuria. Laboratory data showed bowel was 3.4 hemoglobin 10.7 platelets 107 Sodium 139 potassium 4.9 chloride 106 bicarb is 25 BUN 18 and creatinine 1.05 Cardiology and neurology is on board. 08/05/2022 Patient is currently lying in the bed. Denied any complains of chest pain or shortness of breath. When lying in bed, patient feels better. Patient is tolerating oral diet. No compressive nausea vomiting abdominal pain or diarrhea. Carotid duplex scan showed 50 -69% stenosis. CTA of the head and neck was ordered showed suboptimal occlusion due to leg formation and TR is nothing left ICA. 50% stenosis of the eyes of the right internal carotid artery. Denied any acute overnight issues. Current medications reviewed. Objective - Vital Signs Vital signs: Vital Signs Temp 98.3 F 08/05/22 08:27 Pulse 76 08/05/22 16:55 Resp 18 08/05/22 16:55 BP 131/63 08/05/22 16:55 Pulse Ox 96 08/05/22 16:55 FiO2 Intake & Output 08/05/22 08/05/22 08/06/22 06:59 18:59 06:59 Intake Total 900 2460 Output Total 1150 475 Balance -250 1985 Intake: Intake, IV Titration 900 900 Amount Sodium Chloride 0.9% 1, 900 900 000 ml @ 75 mls/hr IV . [id number] [facility] Rx#:[id number] Oral 1560 Output: Urine 1150 475 Other: Voiding Method Urinal Urinal # Bowel Movements 1 - Exam PHYSICAL EXAMINATION: Patient is lying in the bed comfortably, no acute distress, awake alert and oriented.. HEENT: Normocephalic. Neck is supple. Pupils reactive. Nostrils clear. Oral cavity is moist. Neck reveals no JVD, carotid bruits, or thyromegaly. CHEST EXAMINATION: Trachea is central. Symmetrical expansion. Lung stein clear to auscultation and percussion. CARDIAC: Normal S1, S2 with no gallops. No murmurs ABDOMEN: Soft. Bowel sounds present. Nontender. No organomegaly. No abdominal bruits. Extremities: reveal no edema. No clubbing or cyanosis Neurologically awake, alert, oriented x3 with well-coordinated movements. No focal deficits noted Skin: No rash or skin lesions. Psychiatric: Coperative. Nonsuicidal, Musculoskeletal: No joint swelling or deformity. Normal range of motion. - Labs CBC & Chem 7: 08/04/22 07:04 08/04/22 07:04 Labs: Abnormal Lab Results - Last 24 Hours (Table) 08/05/22 08/05/22 08/05/22 Range/Units 12:06 16:31 19:44 POC Glucose (mg/dL) 63 L 157 H 147 H (70-110) mg/dL Assessment and Plan Assessment: Acute syncopal episode likely due to orthostatic hypotension. Rule out seizures. Generalized weakness and frequent falls due to poor oral intake, dehydration and volume depletion. Left carotid stenosis 50- 69%. 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 Chemotherapy-induced pancytopenia, Hypomagnesemia Diabetes type 2 insulin-dependent Hyperlipidemia History of skin cancer Coronary artery history of CABG and cardiac valve replacement Prior history of smoking DVT prophylaxis with Lovenox subcu Plan: Patient be continued on IV hydration. Blood pressure did improve. Patient was started on Midodrin. 2-D echocardiogram report pending. Cardiology was consulted due to his multiple syncopal episodes. Neurology is on board. Carotid duplex showed 50-69% stenosis. Neck CTA was ordered. Recommends MRI of the brain without and without contrast to rule out any brain metastasis. Replace electrolytes and follow up closely. PT OT follow-up. Time with Patient: Greater than 30
[2022-08-06 12:00] LABS: Glucose,Whole Blood 117 mg/dL (70-110)
[2022-08-06 12:36] VITALS: BMI 31.8
--- NOTE | 2022-08-06 13:40 | P.GSCN ---
History of Present Illness Consult date: 08/06/22 Reason for Consult: Left carotid stenosis Requesting physician: Mena Walker History of present illness: This a very pleasant 72-year-old male who presented to the emergency department on 08/02/2022 for frequent syncope and falls. States he has been falling for the last 8 weeks. He has syncopal episodes and blacked out and falls. He states he wakes up a minute or 2 later. He has a past medical history including diabetes mellitus, hyperlipidemia, osteoarthritis, pneumonia skin disorder syncope and cancer. He was recently diagnosed and treated for throat cancer and states he completed chemotherapy and radiation approximately 3 weeks ago. He continues to have issues with dehydration, fatigue, syncope and collapse. As part of his workup he had a CT of the brain that showed no acute findings. Age-related atrophic and chronic small vessel ischemic changes without acute intracranial process seen. He underwent a carotid Doppler with the right ICA peak systolic velocity of 140, ICA/CCA ratio 1.8, left ICA PSV is 184, ICA/CCA ratio 1.4. A report states less than 50% stenosis of the right carotid b ifurcation, 50-69% stenosis of the left carotid bifurcation by peak systolic velocity. He then underwent a CT angiogram of the neck with reporting subsequent subtotal occlusion due to plaque formation at the origin of the left internal carotid artery. 50% stenosis of the origin right internal carotid artery. Vascular surgery is consulted for left ICA stenosis. Patient states he had no focal deficits, no weakness in the upper or lower extremities, no difficulty with speech or swallowing. No visual changes or loss of vision. He denies any chest pain or shortness of breath. He still has weakness and dizziness when he sits up and stands. Cardiology is following patient. He underwent echocardiogram. EF 55-60%. Normal left ventricular size and systolic function. Mild mitral and tricuspid regurgitation. Mild aortic stenosis.post. This syncope is believed to be noncardiac in origin according to cardiology Review of Systems A 14 point review systems was completed all pertinent positives and negatives as stated in the HPI. Past Medical History Past Medical History: Cancer, Diabetes Mellitus, Hyperlipidemia, Osteoarthritis (OA), Pneumonia, Skin Disorder, Syncope Additional Past Medical History / Comment(s): see Dr Maravilla H&P, hx skin cancer, dizziness-using a walker, has had a few falls recently History of Any Multi-Drug Resistant Organisms: None Reported Past Surgical History: Cardiac Valve Replacement, Coronary Bypass/CABG, Heart Catheterization, Joint Replacement, Orthopedic Surgery Additional Past Surgical History / Comment(s): kary hip replacements(multiple, each hip)+surgeries for post op infections, CABG and valve replacement, removal of skin cancer, Past Anesthesia/Blood Transfusion Reactions: No Reported Reaction Additional Past Anesthesia/Blood Transfusion Reaction / Comm: Pt has received blood transfusion without reaction. Smoking Status: Former smoker - Past Family History Mother Family Medical History: Deep Vein Thrombosis (DVT) Brother(s) Family Medical History: Diabetes Mellitus, Hyperlipidemia, Hypertension Son(s) Family Medical History: No Reported History Medications and Allergies Home Medications Medication Instructions Recorded Confirmed Type Insulin Glargine [Lantus Vial] 40 unit SQ BID 02/20/19 08/02/22 History metFORMIN HCL [Glucophage] 500 mg PO BID 02/20/19 08/02/22 History INSULIN LISPRO (humaLOG) [humaLOG] 15 units SQ BID 03/26/22 08/02/22 History Aspirin [[place] Aspirin EC] 81 mg PO DAILY 06/24/22 08/02/22 History Atorvastatin Calcium [Lipitor] 80 mg PO DAILY 06/24/22 08/02/22 History Cholecalciferol [Vitamin D3 (25 50 mcg PO DAILY 06/24/22 08/02/22 History Mcg = 1000 Iu)] Dulaglutide [Trulicity] 1.5 mg SQ MO 06/24/22 08/02/22 History HYDROcodone/APAP 5-325MG [[place] 1 tab PO Q4HR 06/24/22 08/02/22 History 5-325] Ondansetron [Zofran] 4 mg PO Q8HR PRN 06/24/22 08/02/22 History Pantoprazole Sodium [Protonix] 40 mg PO HS 06/24/22 08/02/22 History traMADol HCL 50 mg PO TID PRN 06/24/22 08/02/22 History Acetaminophen Tab [Tylenol] 650 mg PO Q6HR PRN tab 06/29/22 08/02/22 Rx Petrolatum, White [Aquaphor] 1 applic TOPICAL QID each 06/29/22 08/02/22 Rx Triamcinolone 0.1% Ointment 1 applic TOPICAL QID each 06/29/22 08/02/22 Rx [Kenalog 0.1% Ointment] Allergies Allergy/AdvReac Type Severity Reaction Status Date / Time Penicillins Allergy Rash/Hives/ Verified 08/02/22 14:33 SOB Surgical - Exam Vital Signs Temp Pulse Resp BP Pulse Ox 97.9 F 68 16 77/41 99 08/02/22 12:19 08/02/22 12:19 08/02/22 12:19 08/02/22 12:19 08/02/22 12:19 General appearance: The patient is alert, oriented, appears in no acute distress. HET: Head is normocephalic and atraumatic. Pupils are equal and reactive. Neck: Supple without lymphadenopathy. Trachea midline. No audible carotid bruit. Heart: S1 S2. Regular rate and rhythm. Lungs: Clear to auscultation bilaterally. Abdomen: Soft, nontender, nondistended. Extremities: Normal skin color and turgor. No cyanosis, rash, ulceration, clubbing, or edema. Palpable bilateral radial pulses. Neurological: No focal deficits. Strength and sensation are grossly intact. Results - Labs 08/04/22 07:04 08/04/22 07:04 Abnormal Lab Results - Last 24 Hours (Table) 08/05/22 08/05/22 08/06/22 Range/Units 16:31 19:44 09:39 POC Glucose (mg/dL) 157 H 147 H 191 H (70-110) mg/dL 08/06/22 Range/Units 11:51 POC Glucose (mg/dL) 117 H (70-110) mg/dL - Imaging Comments: As stated in HPI Assessment and Plan Assessment: 1. Discordant findings on carotid ultrasound and CTA neck. CTA neck showing subtotal occlusion of the left ICA bifurcation, carotid ultrasound reporting 50- 69% stenosis left ICA 2. Syncope and collapse 3. Recent throat cancer status post chemotherapy and radiation therapy 4. Diabetes mellitus Plan: 1. Continue with neurology recommendations 2. Continue with aspirin and a atorvastatin 3. Further recommendations forthcoming per vascular surgeon Thank you for this consultation, we will continue to follow. The impression and plan of care has been dictated as directed. Dr. Rodriguez I performed a history and examination of this patient, discussed the same with the dictator. I agree with the dictator's note ,documented as a scribe. Any additional findings or plans will be noted.
--- NOTE | 2022-08-06 15:15 | PN ---
PROGRESS NOTE SUBJECTIVE: This gentleman is feeling much better today. He has no significant orthostatic changes. He has been well hydrated. His vitals are stable without any orthostatic changes. He is maintaining sinus rhythm. I am recommending that we can increase activity and possibly discharge him and see his primary retail presentation specialist in 2 weeks. OBJECTIVE: VITALS: Stable. NECK: No JVD. HEART: S1, S2 heard normally, short systolic murmur. LUNGS: Clear. ABDOMEN: Soft, nontender. EXTREMITIES: Lower extremities reveal diminished pulses. CENTRAL NERVOUS SYSTEM: Normal. The gentleman has history of CAD, prior bypass surgery, and aortic valve replacement, stable in this regard. He can be discharged today and I will see him as needed. MMODL / IJN: [id number] /
--- NOTE | 2022-08-06 15:52 | P.DS ---
Providers Date of admission: 08/02/22 14:02 Expected date of discharge: 08/06/22 Attending physician: Mena Walker Consults: 08/02/22 14:01 Consult Physician Routine Consulting Provider: Uzair Lai Consult Reason/Comments: Oncological care Do you want consulting provider notified?: Yes 08/02/22 14:41 Consult to Palliative Care Routine Consulting Provider: Lenore Carrero Consult Reason/Comments: Goals of care Do you want consulting provider notified?: Yes 08/03/22 17:52 Consult Physician Routine Consulting Provider: Sha Maravilla Consult Reason/Comments: Cardiology work-up, syncope, susp neurocardiogenic syncope Do you want consulting provider notified?: Yes 08/03/22 17:53 Consult Physician Routine Consulting Provider: Alex Granda Consult Reason/Comments: syncope Do you want consulting provider notified?: Yes 08/06/22 11:10 Consult Physician Routine Consulting Provider: Barbara Leonard Consult Reason/Comments: Left carotid stenosis Do you want consulting provider notified?: Yes Primary care physician: [facility] Course: Discharge diagnosis Acute syncopal episode likely due to orthostatic hypotension. EEG was done Generalized weakness and frequent falls due to poor oral intake, dehydration and volume depletion. Left carotid stenosis 50- 69%. 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 Chemotherapy-induced pancytopenia, Hypomagnesemia Diabetes type 2 insulin-dependent Hyperlipidemia History of skin cancer Coronary artery history of CABG and cardiac valve replacement Prior history of smoking DVT prophylaxis with Lovenox subcu Hospital course Patient is a 72-year-old male with a known history of right tonsillar squamous cell carcinoma and recent chemotherapy, hyperlipidemia, diabetes type 2 insulin- dependent, osteoarthritis, coronary artery disease history of CABG, history of cardiac valve replacement and prior history of smoking presents to ER with c omplaints of generalized weakness and frequent falls and syncopal episode. Patient says that he has not been taking very well at home. Decreased appetite. Denied any head injury. No complaints of vomiting. He does have nausea. No chest pain or shortness breath. No fever no chills. No leg swelling. CT head showed is related to be and chronic small vessel ischemic changes without intracranial process. EKG showed normal sinus rhythm with left axis deviation. Patient was hypotensive on admission blood pressure 77/41. Laboratory data showed WBC 6.0 hemoglobin 11.9 and platelets 179 Sodium 139 potassium 4.9 chloride 101 bicarb is 23 BUN 26 and creatinine 1.55 and blood sugar 105 Liver enzymes are not elevated. Troponin 3 negative. 08/03/2022 Patient is currently resting in bed. Awake alert and oriented 3. Still complains of dizziness when attempts to to get up. No fever no chills. No headache. Patient is able to tolerate some oral diet today. Blood pressure did improve. Patient is being going on IV hydration. Blood pressure medications on hold. Blood sugar is fairly controlled. No nausea vomiting abdominal pain diarrhea. PT OT was consulted for possible rehab transfer. Laboratory data showed sodium 139 potassium 5.8 chloride 106. Repeat potassium 4.6 BUN 20 and creatinine 1.22 and calcium 8.7 08/04/2022 Patient is currently resting in the bed. Awake alert and oriented 3. She complains of generalized weakness. Dizziness did improve. Patient was started on Midodrin as per cardiology recommendations and 2-D echocardiogram is pending. Blood pressure did improve. Patient is tolerating oral diet. Next and no fever no chills. No cough or sputum production. Denied any dysuria or hematuria. Laboratory data showed bowel was 3.4 hemoglobin 10.7 platelets 107 Sodium 139 potassium 4.9 chloride 106 bicarb is 25 BUN 18 and creatinine 1.05 Cardiology and neurology is on board. 08/05/2022 Patient is currently lying in the bed. Denied any complains of chest pain or shortness of breath. When lying in bed, patient feels better. Patient is tolerating oral diet. No compressive nausea vomiting abdominal pain or diarrhea. Carotid duplex scan showed 50 -69% stenosis. CTA of the head and neck was ordered showed suboptimal occlusion due to leg formation and TR is nothing left ICA. 50% stenosis of the eyes of the right internal carotid artery. Denied any acute overnight issues. 08/06/2022 Patient is able to get up and go to the bathroom and took shower today. Denied any complaints of dizziness or lightheadedness. Symptomatically did improve. No complaints of nausea vomiting or abdominal pain or diarrhea. Able to tolerate oral diet. Blood pressure is maintained. 2-D echocardiogram showed normal ejection fraction and no significant valvular abnormalities noted. Patient was seen by vascular surgery due to subtotal occlusion of the left ICA as per CTA neck. Vascular surgery has seen the patient. Continue with aspirin statins at this time. Patient will be continued on Midodrin 2.5 mg twice a day a day upon discharge. Patient otherwise hemoglobin currently stable and is being discharged to [facility]. PHYSICAL EXAMINATION: Patient is lying in the bed comfortably, no acute distress, awake alert and oriented.. HEENT: Normocephalic. Neck is supple. Pupils reactive. Nostrils clear. Oral cavity is moist. Neck reveals no JVD, carotid bruits, or thyromegaly. CHEST EXAMINATION: Trachea is central. Symmetrical expansion. Lung stein clear to auscultation and percussion. CARDIAC: Normal S1, S2 with no gallops. No murmurs ABDOMEN: Soft. Bowel sounds normal. No organomegaly. No abdominal bruits. Extremities: reveal no edema. No clubbing or cyanosis Neurologically awake, alert, oriented x3 with well-coordinated movements. No focal deficits noted Skin: No rash or skin lesions. Psychiatric: Coperative. Nonsuicidal Musculoskeletal: No joint swelling or deformity. Normal range of motion. 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 Patient Condition at Discharge: Fair Plan - Discharge Summary Discharge Rx Participant: No New Discharge Prescriptions: New Midodrine [ProAmatine] 2.5 mg PO AC-BID #15 tab Continue metFORMIN HCL [Glucophage] 500 mg PO BID Dulaglutide [Trulicity] 1.5 mg SQ MO Atorvastatin Calcium [Lipitor] 80 mg PO DAILY Petrolatum, White [Aquaphor] 1 applic TOPICAL QID each Triamcinolone 0.1% Ointment [Kenalog 0.1% Ointment] 1 applic TOPICAL QID each Acetaminophen Tab [Tylenol] 650 mg PO Q6HR PRN tab PRN Reason: Mild Pain Or Fever > 100.5 HYDROcodone/APAP 5-325MG [Diamond 5-325] 1 tab PO Q4HR 3 Days #12 tab traMADol HCL 50 mg PO TID PRN 3 Days #9 tab PRN Reason: Pain Ondansetron [Zofran] 4 mg PO Q8HR PRN PRN Reason: Nausea Cholecalciferol [Vitamin D3 (25 Mcg = 1000 Iu)] 50 mcg PO DAILY Aspirin [[place] Aspirin EC] 81 mg PO DAILY Pantoprazole Sodium [Protonix] 40 mg PO HS Changed INSULIN LISPRO (humaLOG) [humaLOG] 10 units SQ BID #0 Insulin Glargine [Lantus Vial] 28 unit SQ BID #0 Discharge Medication List metFORMIN HCL [Glucophage] 500 mg PO BID 02/20/19 [History] Aspirin [[place] Aspirin EC] 81 mg PO DAILY 06/24/22 [History] Atorvastatin Calcium [Lipitor] 80 mg PO DAILY 06/24/22 [History] Cholecalciferol [Vitamin D3 (25 Mcg = 1000 Iu)] 50 mcg PO DAILY 06/24/22 [History] Dulaglutide [Trulicity] 1.5 mg SQ MO 06/24/22 [History] Ondansetron [Zofran] 4 mg PO Q8HR PRN 06/24/22 [History] Pantoprazole Sodium [Protonix] 40 mg PO HS 06/24/22 [History] Acetaminophen Tab [Tylenol] 650 mg PO Q6HR PRN tab 06/29/22 [Rx] Petrolatum, White [Aquaphor] 1 applic TOPICAL QID each 06/29/22 [Rx] Triamcinolone 0.1% Ointment [Kenalog 0.1% Ointment] 1 applic TOPICAL QID each 06/29/22 [Rx] HYDROcodone/APAP 5-325MG [Diamond 5-325] 1 tab PO Q4HR 3 Days #12 tab 08/06/22 [Rx] INSULIN LISPRO (humaLOG) [humaLOG] 10 units SQ BID #0 08/06/22 [Rx] Insulin Glargine [Lantus Vial] 28 unit SQ BID #0 08/06/22 [Rx] Midodrine [ProAmatine] 2.5 mg PO AC-BID #15 tab 08/06/22 [Rx] traMADol HCL 50 mg PO TID PRN 3 Days #9 tab 08/06/22 [Rx] Follow up Appointment(s)/Referral(s): [facility], [NON-STAFF] - Jonathan Graham DO [Primary Care Provider] - 1-2 days Discharge/Stand Alone Forms: Who Do I Call?, Community Resources, Help In The Home, Personal Maintenance Equipment Operator Discharge Disposition: TRANSFER TO SNF/ECF
[2022-08-06 16:41] VITALS: BP 152/64; PULSE 74
[2022-08-06 16:54] LABS: Glucose,Whole Blood 134 mg/dL (70-110)
--- NOTE | 2022-08-07 03:33 | EEG ---
ELECTROENCEPHALOGRAM REPORT PREAMBLE: This is a 72-year-old male with recurrent syncope. The patient has a throat cancer, for which he was receiving chemotherapy and radiation, which just finished. He has been having more frequent falls. EEG FINDINGS: This is a 21-channel digital EEG recording with video competent, utilizing 10/20 international system with referential and bipolar montages. Background consists of well developed, well regulated moderate voltage activity in 9 to 10 hertz alpha. Background is posterior dominant and reactive to eye opening and closing. Photic driving response was not clearly seen. Drowsiness and stage 2 sleep was seen with presence of diffuse mixed theta and delta with sleep spindles. No focal or generalized epileptiform activity was seen. EKG channel showed no obvious arrhythmia. IMPRESSION: This is a normal EEG during wakefulness, drowsiness and stage 2 sleep. No focal, lateralized or epileptiform activity was seen. MMROHINI / NINFAN: [id number] /
== END 2022-08-06 17:03 | DRG 312 ==
LOC: EC 12:03 → 3SCARD 14:02
PROVIDERS: ADMIT Internal Medicine; ATTEND Internal Medicine
DX: I95.1 Orthostatic hypotension (principal); D61.810 Antineoplastic chemotherapy induced pancytopenia; E83.42 Hypomagnesemia; R53.1 Weakness; W18.30XA Fall on same level, unspecified, initial encounter; E86.0 Dehydration; C09.9 Malignant neoplasm of tonsil, unspecified; E78.5 Hyperlipidemia, unspecified; T45.1X5A Adverse effect of antineoplastic and immunosuppressive drugs, initial encounter; I25.10 Atherosclerotic heart disease of native coronary artery without angina pectoris; R29.6 Repeated falls; E11.9 Type 2 diabetes mellitus without complications; E66.9 Obesity, unspecified; R13.10 Dysphagia, unspecified; I65.23 Occlusion and stenosis of bilateral carotid arteries; Z68.31 Body mass index [BMI] 31.0-31.9, adult; Z96.643 Presence of artificial hip joint, bilateral; Z88.0 Allergy status to penicillin; I25.2 Old myocardial infarction; Z79.899 Other long term (current) drug therapy; Z79.84 Long term (current) use of oral hypoglycemic drugs; Z79.82 Long term (current) use of aspirin; Z79.4 Long term (current) use of insulin; Z87.891 Personal history of nicotine dependence; Z95.1 Presence of aortocoronary bypass graft; Z95.2 Presence of prosthetic heart valve; Z92.3 Personal history of irradiation; Z92.21 Personal history of antineoplastic chemotherapy; Z85.828 Personal history of other malignant neoplasm of skin; Z83.3 Family history of diabetes mellitus; Z82.49 Family history of ischemic heart disease and other diseases of the circulatory system
CPT/HCPCS: 36415; 70450; 70498; 71046; 80048; 80053; 83735; 84132; 84484; 85025; 85610; 85730; 93005; 93306; 93880; 94760; 95819; 99285

== ENCOUNTER → 2022-08-24 | Outpatient (CLI) | payer MEDICARE ==
--- NOTE | 2022-08-26 08:35 | PE ---
EXAMINATION TYPE: PET CT fusion skull to thigh DATE OF EXAM: 08/24/2022 COMPARISON: Prior PET/CT May 04, 2022 HISTORY: Right-sided neck cancer TECHNIQUE: Following the intravenous administration of 11.71 mCi of F-18 FDG, whole body images are performed from the skull base to the midthigh. Images are reviewed on the computer in the coronal, a xial, and sagittal planes. Reconstructed rotating images are created on independent workstation and reviewed on the computer. A localization and attenuation correction CT is performed in conjunction with the PET scan. Blood glucose level equals 124. Dedicated PET/CT imaging of the neck is performed. SCAN: Subsequent Scan FINDINGS: SKULL BASE AND NECK: Asymmetric prominent soft tissue with abnormal hypermetabolic uptake posterior right tongue base now is not clearly identified. Streak artifact from cavitary lesions and crowns in the teeth makes evaluation near this level suboptimal. Nonspecific abnormal mild hypermetabolic uptak e anterior left oral pharynx with poor visualization on CT at this level is redemonstrated likely non neoplastic, consider dental infection. No definitive new areas of abnormal hypermetabolic uptake. CHEST, MEDIASTINUM, AND HILAR REGION: No new areas of abnormal hypermetabolic uptake. ABDOMEN AND PELVIS: Normal excretion is present. Moderate nonspecific bowel uptake is now seen. No de finitive new areas of abnormal hypermetabolic uptake. OSSEOUS STRUCTURES: No definitive new areas of abnormal hypermetabolic uptake OTHER CT: Severe calcified plaque right greater than left carotid bulbs is redemonstrated. 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 Mild cardiomegaly. Calcification at level of the aortic valve is again seen. Cortical thinning in both kidneys is redemonstrated. Metallic artifact from bilateral hip arthroplasty causes streak artifact limiting evaluation of pelvi c structures similar to prior. IMPRESSION: Complete positive treatment response to right posterior tongue base neoplasm. No new or r esidual areas of abnormal hypermetabolic uptake.
== END | disposition home or self-care (01) ==
LOC: RADPETMAIN 09:21
PROVIDERS: ATTEND Internal Medicine Hematology & Oncology
DX: C76.0 Malignant neoplasm of head, face and neck (principal)
CPT/HCPCS: 78815; A9552

== ENCOUNTER → 2023-03-13 | Outpatient (CLI) | payer MEDICARE ==
--- NOTE | 2023-03-13 11:55 | US ---
EXAMINATION TYPE: US carotid duplex BILAT DATE OF EXAM: 03/13/2023 COMPARISON: CTa 08/05/22, US 08/04/22. CLINICAL INDICATION: Male, 73 years old with history of I25.110 CAD; CAD. Prior smoker, hx diabetes. TECHNIQUE: Carotid duplex ultrasound examination. Indirect Doppler criteria was utilized. FINDINGS: EXAM MEASUREMENTS: RIGHT: Peak Systolic Velocity (PSV) cm/sec ----- Right CCA: 60.9 ----- Right ICA: 133.4 ----- Right ECA: 222.1 ICA/CCA ratio: 2.2 RIGHT: End Diastole cm/sec ----- Right CCA: 11.8 ----- Right ICA: 31.7 ----- Right ECA: 15.3 LEFT: Peak Systolic Velocity (PSV) cm/sec ----- Left CCA: 94.1 ----- Left ICA: 135.0 ----- Left ECA: 116.8 ICA/CCA ratio: 1.4 LEFT: End Diastole cm/sec ----- Left CCA: 14.9 ----- Left ICA: 23.6 ----- Left ECA: 9.6 VERTEBRALS (direction of flow): Right Vertebral: Not visualized Left Vertebral: Antegrade Rhythm: Normal OFFAL SEPARATOR NOTES: Shadowing plaque seen within bilateral bulbs and bilateral proximal ICAs. Elevat ed velocities within bilateral ICAs. Elevated velocity within right ECA. Right vertebral was not seen . IMPRESSION: 1. Moderate atherosclerotic plaque within the bilateral carotid bulbs and bilateral proximal interna l carotid arteries. There is 50-69% stenosis of the right internal carotid artery at its origin. Less than 50% stenosis at the origin of the left internal carotid artery. These findings are based on u ltrasound criteria. If there is continued clinical concern, consider CTA neck for further evaluation. 2. 3. Right vertebral artery was not visualized. Criteria for Assigning % of Stenosis / Diameter reduction (Estimation based on the indirect measurements of the internal carotid artery velocities (ICA PSV). 1. Normal (no stenosis)=ICA PSV < 125 cm/s: ratio < 2.0: ICA EDV<40 cm/s. 2. Less than 50% stenosis=ICA PSV < 125 cm/s: ratio < 2.0: ICA EDV<40 cm/s. 3. 50 to 69% stenosis=ICA PSV of 125 to 230 cm/s: ration 2.0 ? 4.0: ICA EDV 40-100 cm/s. 4. Greater than 70% stenosis to near occlusion= ICA PSV > 230 cm/s: ratio > 4.0: ICA EDV > 100 cm/s. 5. Near occlusion= ICA PSV velocities may be low or undetectable: variable ratio and ICA EDV. 6. Total occlusion=unable to detect flow.
--- NOTE | 2023-03-13 17:49 | CT ---
EXAMINATION TYPE: CT brain wo/w con DATE OF EXAM: 03/13/2023 COMPARISON: 08/02/2022 INDICATION: dizziness, loss of balance DLP: 2180.8 mGycm, Automated exposure control for dose reduction was used. CONTRAST: None CT of the brain is performed utilizing 3 mm thick sections through the posterior fossa and 3 mm thick sections through the remaining calvarium. Study is performed within 24 hours of arrival to the hosp ital. No abnormal hyperdensity is present to suggest an acute intracranial hemorrhage. No mass lesion is evident. No acute infarcts are evident. Periventricular white matter hypodensity is present, likely on the bas is of chronic white matter ischemic change. This may be slightly greater adjacent to the frontal horn s lateral ventricles Ventricles and sulci are appropriate for the patient age. There is a tiny air-fluid level in the right maxillary sinus. Correlate for acute maxillary sinusitis . Frontal and sphenoid sinuses are clear. Mastoid air cells are clear. Minimal mucosal images through ethmoid air cells. No abnormal enhancement is evident. Normal filling of the visualized intracranial cerebral vasculatur e is evident IMPRESSIONS: 1. Chronic appearing periventricular white matter ischemic changes present previously and stable. F ollow-up MRI can be performed as clinically indicated. 2. Mild acute right maxillary sinusitis may be present.
== END | disposition home or self-care (01) ==
LOC: RADUSWWP 10:45
PROVIDERS: ATTEND Family Medicine
DX: I25.110 Atherosclerotic heart disease of native coronary artery with unstable angina pectoris (principal); G30.9 Alzheimer's disease, unspecified; I65.23 Occlusion and stenosis of bilateral carotid arteries; R90.82 White matter disease, unspecified; I67.82 Cerebral ischemia; E11.9 Type 2 diabetes mellitus without complications
CPT/HCPCS: 82565; 84520; 93880; 70470; 36415; Q9967

== ENCOUNTER → 2023-04-19 | Outpatient (CLI) | payer MEDICARE ==
--- NOTE | 2023-04-20 08:06 | PE ---
EXAMINATION TYPE: PET CT fusion skull to thigh DATE OF EXAM: 04/19/2023 CLINICAL INDICATION:Male, 73 years old with history of head and neck cancer; TECHNIQUE: Following the intravenous administration of 10.9 mCi of F-18 FDG, whole body images are performed from the skull base to the midthigh. Images are reviewed on the computer in the coronal, a xial, and sagittal planes. Reconstructed rotating images are created on independent workstation and reviewed on the computer. A non-contrast CT is performed in conjunction with the PET scan. Glucose level 91 mg/dL COMPARISON: CT 03/13/2023, 12/28/2018, PET/CT 08/24/2022, FINDINGS: Mediastinal SUV mean is 1.6. Hepatic parenchyma SUV mean is 2.7. SKULL BASE AND NECK: No suspicious radiotracer activity. The parapharyngeal space does not demonstra te focal increased radiotracer activity. CHEST, MEDIASTINUM, AND HILAR REGION: No suspicious radiotracer activity. ABDOMEN AND PELVIS: No suspicious radiotracer activity. OSSEOUS STRUCTURES: No suspicious radiotracer activity. OTHER CT: Severe calcified plaque right greater than left carotid bifurcations is redemonstrated. Ove rlying sternal wires with sternal nonunion redemonstrated. Mild cardiomegaly. Calcification at level of the aortic valve is again seen. Cortical thinning in both kidneys is redemonstrated. Metallic artifact from bilateral hip arthroplasty causes streak artifact limiting evaluation of pelvi c structures similar to prior. IMPRESSION: No suspicious radiotracer activity.
== END | disposition home or self-care (01) ==
LOC: RADPETMAIN 07:45
PROVIDERS: ATTEND Internal Medicine Hematology & Oncology
DX: C76.0 Malignant neoplasm of head, face and neck (principal)
CPT/HCPCS: 78815; A9552

== ENCOUNTER → 2023-08-29 | Outpatient (CLI) | payer MEDICARE ==
[2023-08-29 13:34] LABS: African American GFR (CKD) 84 (>60 ml/min/1.73 sqM); Blood Urea Nitrogen 13 mg/dL (9-20); Non-African American GFR(CKD) 73 (>60 ml/min/1.73 sqM)
--- NOTE | 2023-08-29 14:29 | CT ---
EXAMINATION TYPE: CT lumbar spine w con CT DLP: 1398.8 mGycm, Automated exposure control for dose reduction was used. DATE OF EXAM: 08/29/2023 2:10 PM COMPARISON: PET/CT 04/19/2023. CLINICAL INDICATION:Male, 73 years old with history of M54.50,M79.18,M54.16 LOW BACK PAIN; PHH, low b ack pain x 3 years TECHNIQUE: Multiple axial images were obtained from the midportion of T11 through the sacroiliac jaylyn nts after the uneventful administration of 100 cc of Isovue-300 intravenously. Soft tissue and bone windows in coronal and sagittal planes were obtained and reviewed. FINDINGS: Alignment: There are 5 lumbar type vertebral bodies within normal alignment. Bone: No evidence of fracture is identified. Degenerative changes of both SI joints. No aggressive o sseous lesion. Endplate sclerosis with anterior ossified ptosis is prominently at L4-L5 and L5-S1 Discs: T12-L1: No spinal canal or neural foraminal stenosis is identified. L1-L2: No spinal canal or neural foraminal stenosis is identified. L2-L3: Broad-based disc bulge with mild effacement of the anterior thecal sac. Bilateral facet arthro samanta with ligament of flavum buckling. Mild bilateral neural foraminal stenosis. L3-L4: Broad-based disc bulge with mild effacement of the anterior thecal sac. Bilateral facet arthro samanta with ligament of flavum buckling. Mild bilateral neural foraminal stenosis. L4-L5: Broad-based disc bulge with mild effacement of the anterior thecal sac. Bilateral facet arthr opathy. Mild bilateral neural foraminal stenosis. L5-S1: No spinal canal or neural foraminal stenosis is identified. Other: Atherosclerotic calcification of the aorta. IMPRESSION: 1. No evidence for spinal fracture. No abnormal enhancement. Next line 2. Mild multilevel degenerative disc disease and facet arthropathy as described above. This is most p rominent from L2 through L5.
== END | disposition home or self-care (01) ==
LOC: RADCTMAIN 12:54
PROVIDERS: ATTEND Physical Medicine & Rehabilitation Pain Medicine
DX: M51.16 Intervertebral disc disorders with radiculopathy, lumbar region (principal); M47.26 Other spondylosis with radiculopathy, lumbar region; M79.18 Myalgia, other site
CPT/HCPCS: 82565; 84520; 72132; 36415; Q9967

== ENCOUNTER → 2024-03-17 | Outpatient (CLI) | payer MEDICARE ==
[2024-03-17 08:21] LABS: African American GFR (CKD) 61 (>60 ml/min/1.73 sqM); Blood Urea Nitrogen 20 mg/dL (9-20); Non-African American GFR(CKD) 53 (>60 ml/min/1.73 sqM)
--- NOTE | 2024-03-19 11:16 | CT ---
EXAMINATION TYPE: CT neck chest w con DATE OF EXAM: 03/17/2024 COMPARISON: 03/20/2022 HISTORY: follow up throat ca CT DLP: 1620 mGycm CONTRAST: CT scan of the neck is performed with IV Contrast, patient injected with 100 mL of Isovue 300. Contrast enhanced CT of the neck was performed from the skull base through the lung apices. AIRWAY: The supraglottic, glottic, and subglottic portions of the airway appear patent and free of mass. SALIVARY GLANDS: The submandibular and parotid glands are free of mass or inflammatory process. THYROID GLAND: No nodules or masses seen. LYMPH NODES: No adenopathy seen greater than 1cm. LUNG APICES: No nodule or mass is seen. OTHER: Vascular structures are patent. No significant degenerative change of the cervical spine. N o abscess seen. IMPRESSION: No residual mass or adenopathy about the neck. EXAMINATION TYPE: CT neck chest w con DATE OF EXAM: 03/17/2024 COMPARISON: HISTORY: follow up throat ca CT DLP: 1620 mGycm Automated exposure control for dose reduction was used. CONTRAST: CT scan of the chest is performed with IV Contrast, patient injected with 100 mL of Isovue 300. FINDINGS: LUNGS: The lungs are grossly clear, there is no concerning parenchymal mass or nodule identified. T here is no pleural effusion or pneumothorax seen. The tracheobronchial tree is patent. MEDIASTINUM: There are no greater than 1 cm hilar or mediastinal lymph nodes. No pericardial effusi on is seen. Thoracic aorta is of normal caliber. The heart is not enlarged. UPPER ABDOMEN: No significant abnormality appreciated. OTHER: No additional significant abnormality is seen. IMPRESSION: No distinct pulmonary nodule or mass. No adenopathy present.
== END | disposition home or self-care (01) ==
LOC: RADCTMAIN 07:37
PROVIDERS: ATTEND Internal Medicine Hematology & Oncology
DX: C14.0 Malignant neoplasm of pharynx, unspecified (principal); H93.19 Tinnitus, unspecified ear; E11.9 Type 2 diabetes mellitus without complications; Z71.3 Dietary counseling and surveillance
CPT/HCPCS: 82565; 84520; 70491; 71260; 36415; Q9967